=== PATIENT | female | born 1975 | race African-American/Black ===

== ENCOUNTER 2016-09-04 14:27 | Inpatient (IN) ==
[2016-09-04 15:32] LABS: Basophils # 0.1 10*3/uL (0.0-0.2); Basophils % 0.8 % (0.0-0.8); Eosinophils # 0.2 10*3/uL (0.0-0.87); Eosinophils % 2.7 % (0.00-10.9); Hematocrit 39.9 VOL% (35.7-47.0); Hemoglobin 13.2 GM/DL (12.0-16.0); Immature Granulocytes % 0.1 %; Immature Granulocytes Absolute 0.01 #; Lymphocytes # 3.5 10*3/uL (1.4-4.0); Lymphocytes % 46.8 % (21.3-54.2); Mean Corpuscular HGB Conc 33.1 GM/DL (32-36); Mean Corpuscular Hemoglobin 31 PG (27-34); Mean Platelet Volume 10.6 FL (9.6-12.0); Monocytes # 0.8 10*3/uL (0.11-0.8); Neutrophils # 2.9 10*3/uL (1.4-7.4); Neutrophils % 38.6 % (38.7-73.9); Platelet Count 233 T/CUMM (130-400); Red Blood Count 4.29 MC/CUMM (3.8-5.5); Red Cell Distribution Width 12.8 % (9.3-17.3); White Blood Count 7.5 T/CUMM (4-12)
--- NOTE | 2016-09-04 15:33 | XRay Report ---
XR foot 3V LT Indication: Fractured toe in April, now fifth toe painful and "black" Left foot 3 views: Soft tissue swelling of the fifth toe is present. Permeative bone resorptive change involves the midportion of the middle phalanx as well as the tip of the distal phalanx. Proximal phalanx is intact. There is cortical thickening of the proximal fifth metatarsal. Impression: 1. 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 Resorption of the tuft of the distal phalanx. Underlying infection cannot be excluded, especially given the soft tissue swelling present. 2. Cortical thickening of the fifth metatarsal with a nodular contour, mimicking candle wax. Query history of melorheostosis versus old injury, now healed. PROCEDURE INTERPRETED AT [facility] DEPARTMENT OF RADIOLOGY Final Report Signed by: Levi Shepard M.D.
[2016-09-04] MEDS ORDERED: SODIUM CHLORIDE 0.9% 1,000 ML IV STA (15:45)
[2016-09-04] MEDS ORDERED: CLINDAMYCIN INJ 600 MG in PREMIX 1 EACH IV STA (15:45)
[2016-09-04 15:46] LABS: Alanine Aminotransferase 27 U/L (13-56); Alkaline Phosphatase 103 U/L (45-117); Aspartate Amino Transferase 13 U/L (0-37); Bilirubin,Total < 0.39 MG/DL (0.2-1.0); Blood Urea Nitrogen 19 MG/DL (7-18); Calcium 8.9 MG/DL (8.5-10.1); Glucose 204 MG/DL (74-106); Osmolality,Calculated 280.8 MOS/KG (273-304); Potassium 3.6 MMOL/L (3.5-5.1); Sodium 137 MMOL/L (136-145); Total Protein 7.7 G/DL (6.4-8.3)
--- NOTE | 2016-09-04 15:46 | Emergency Department Note ---
Aga Conner Gwan, am scribing for, and in the presence of, Rene Cartagena MD 15:02. Mitzi Conner Phillip K, MD, personally performed the services described in this documentation, ascribed by Geri Yung in my presence, and it is both accurate and complete [id number] . Arrival - Arrival Chief Complaint: Extremity Problem Stated Complaint: broke toe ED Nursing Triage Note: Pt c/o injury to her left 5th toe occurred back May 06 but the last 2 wks she has been having increased pain and the toe is back in color. Mode of Arrival: Ambulatory Limitations: No Limitations Source: Patient, Old Records Reviewed, RN Notes Reviewed Time Seen by Provider: 09/04/16 14:44 - History of Present Illness HPI Narrative: Pt is a 41 y/o female, with a hx of NIDDM and HTN, who presents to the ED for further evaluation of necrosis of 5th digit to left lower extremity with an onset 05/06/2016. Patient stated that her God Daughter stepped on her toe causing injury. Patient then noted that within the past 3 weeks, her pain has increased as well as her edema and limited mobility. She confirmed that her toe turned black 2 months after onset, that she has been compliant with her HTN medication and that her PCP is a physician at [facility]. She denies receiving any blood work or x-rays for her toe. No other problems/ complaints reported in ED. Onset (ago): month(s) Consistency: constant Severity: moderate Date of Last Menstrual Period: September 02 Allergies/Adverse Reactions: Allergies Allergy/AdvReac Type Severity Reaction Status Date / Time No Known Allergies Allergy Verified 07/25/15 13:58 Home Medications: Home Medications Medication Instructions Recorded Confirmed Type Aspirin Tab 325 mg PO DAILY #30 tablet 07/29/15 09/04/16 Rx Atorvastatin [Lipitor] 20 mg PO BEDTIME #30 tablet 07/29/15 09/04/16 Rx Furosemide Tab [Lasix Tab] 20 mg PO DAILY #30 tablet 07/29/15 09/04/16 Rx Lisinopril [Prinivil] 40 mg PO DAILY #30 tablet 07/29/15 09/04/16 Rx amLODIPine [Norvasc] 10 mg PO DAILY #30 tablet 07/29/15 09/04/16 Rx glyBURIDE [Diabeta] 5 mg PO BID W/MEALS #60 tablet 07/29/15 09/04/16 Rx hydrALAZINE TAB [Apresoline Tab] 50 mg PO TID #90 tablet 07/29/15 09/04/16 Rx Metoprolol Tartrate Tab [Lopressor 50 mg PO BID 09/04/16 09/04/16 History Tab] Review of System - Review of System 12 point system: reviewed and no additional remarkable complaints except as stated - Review of System Constitutional: Absent: chills, fever Eyes: Absent: pain Head/Ears/Nose/Throat: Absent: epistaxis Respiratory: Absent: cough Cardiovascular: Absent: chest pain Gastrointestinal: Absent: abdominal pain, nausea, diarrhea Musculoskeletal: Present: as per HPI, other (left toe black and swollen). Absent: arm pain, back pain, lower back pain, leg pain Medical,Surgical,& Family Hx - Medical History Cardio: History of: Hypertension Neurology: History of: Cerebrovascular Accident Endocrine: History of: Diabetes Mellitus (NIDDM), Dyslipidemia Gastrointestinal: History of: Pancreatitis - Surgical History Abdominal Surgeries: Surgical HX of: Cholecystectomy - Family History Family History: Reports;: Family Diabetes - Social History Smoking Status: Current every day smoker Exam Vital Signs: Vital Signs Temperature 98.0 F 09/04/16 15:17 Pulse Rate 121 H 09/04/16 15:17 Respiratory Rate 18 09/04/16 15:17 Blood Pressure 228/123 09/04/16 15:17 O2 Sat by Pulse Oximetry 99 09/04/16 14:28 - General General appearance: alert, in no apparent distress - Extremities Exam Extremities exam: Present: other (Gangrene noted to 5th digit of the left lower extremity; toe is black, hard and very tender) - Neurological Exam Neurological exam: Present: alert, oriented X3, CN II-XII intact. Absent: motor sensory deficit - Psychiatric Psychiatric exam: Present: normal affect, normal mood - Skin Skin exam: Present: other (Gangrene noted to 5th digit of left lower extremitiy ; toe is hard, black and very tender) Course Course Narrative: Patient discussed with Dr. Duque. Results - Labs CBC & BMP: 09/04/16 15:10 09/04/16 15:10 Lab Results: I have reviewed the patients labs - Diagnostic Findings Procedure: X-ray: report reviewed by me (Nonunion of the middle phalangeal fracture left fifth toe) Disposition Clinical Impression: Gangrene left fifth toe Case discussed with: patient Disposition: Still a Patient Condition: Guarded Additional Instructions: Admit to Dr. Duque.
[2016-09-04] MEDS ORDERED: CLINDAMYCIN INJ 50 ML IV ONE (16:11)
[2016-09-04] MEDS ORDERED: DEXTROSE 50% 25 GM/50 ML VIAL IV PRN (16:34)
[2016-09-04] MEDS ORDERED: GLUCAGON 1 MG VIAL IM PRN (16:34)
[2016-09-04] MEDS ORDERED: ACETAMINOPHEN 325 MG TABLET PO PRN (16:34)
[2016-09-04] MEDS ORDERED: HYDROmorphone 2 MG/1 ML VIAL ONE (16:39)
[2016-09-04] MEDS ORDERED: BACITRACIN OINT 0.9 GM PACK TOP ONE (16:40)
--- NOTE | 2016-09-04 16:48 | General Surg History&Physical ---
Assessment and Plan - Time spent with patient Time spent with patient: Greater than 30 minutes (1) Ischemic ulcer of toe of left foot Status: Acute Assessment and plan: Impression: 1. Ischemic left fifth toe 2. Diabetes [id number] 3. Hypertension 4. Questionable history of CVA Plan. 1. Admit for IV antibiotics 2. Vascular studies 3. Diabetes control 4. Look at surgery for amputation of toe possibly Sunday Current Visit: Yes Qualifiers: Non-pressure ulcer stage: limited to breakdown of skin Qualified Code(s): L97.521 - Non-pressure chronic ulcer of other part of left foot limited to breakdown of skin History of Present Illness Chief complaint: Ischemic left fifth toe History of present illness: Ms. Desai is a 41 year old female -Prydeinig diabetic female who sustained a traumatic injury to the left fifth toe around sometime in April. Do not know account care she was providing to this area but he got basically worse over the last several days with now some increased pain and darkening of the tissue around it. No significant erythematous changes on to the foot but there is some edema on the dorsum of the foot at this time. Difficult to palpate pulses in the left foot because of the edema but I think we feel like 2 + pulse in that area. She is on just oral medication but has history of some hypertension on multiple drugs at this time. At this point her x-rays suggest a dislocation with some bone loss which is either due to the fracture are possible infection in it. It appears that she may lose this toe but will then admit her for some antibiotics and get some vascular studies and those are okay plan to take her surgery to take that toe. Will start some wound care at this time. Home Medications Medication Instructions Recorded Confirmed Type Aspirin Tab 325 mg PO DAILY #30 tablet 07/29/15 09/04/16 Rx Atorvastatin [Lipitor] 20 mg PO BEDTIME #30 tablet 07/29/15 09/04/16 Rx Furosemide Tab [Lasix Tab] 20 mg PO DAILY #30 tablet 07/29/15 09/04/16 Rx Lisinopril [Prinivil] 40 mg PO DAILY #30 tablet 07/29/15 09/04/16 Rx amLODIPine [Norvasc] 10 mg PO DAILY #30 tablet 07/29/15 09/04/16 Rx glyBURIDE [Diabeta] 5 mg PO BID W/MEALS #60 tablet 07/29/15 09/04/16 Rx hydrALAZINE TAB [Apresoline Tab] 50 mg PO TID #90 tablet 07/29/15 09/04/16 Rx Metoprolol Tartrate Tab [Lopressor 50 mg PO BID 09/04/16 09/04/16 History Tab] Allergies Allergy/AdvReac Type Severity Reaction Status Date / Time No Known Allergies Allergy Verified 07/25/15 13:58 Medical,Surgical,& Family Hx - Medical History Cardio: History of: Hypertension Neurology: History of: Cerebrovascular Accident Endocrine: History of: Diabetes Mellitus (NIDDM), Dyslipidemia Gastrointestinal: History of: Pancreatitis - Surgical History Abdominal Surgeries: Surgical HX of: Cholecystectomy - Family History Family History: Reports;: Family Diabetes - Social History Smoking Status: Current every day smoker Functional capacity: independent ambulation Exam - Constitutional Vitals: Period Temp Pulse Resp BP Sys/Chavarria Pulse Ox Last 24 Hr 98.0 F-98.0 F 121-121 18-18 228-228/123-123 99 General appearance: mild distress - Head Head exam: Present: normal inspection - ENT ENT exam: Present: normal exam - Neck Neck exam: Present: normal inspection - Respiratory Respiratory exam: Present: clear to auscultation bilaterally, rales - Cardiovascular Cardiovascular exam: Present: RRR - GI/Abdominal GI/Abdominal exam: Present: hypoactive bowel sounds, soft - Extremities Exam Extremities exam: Present: other (There is some swelling the dorsum of the left foot without erythema. There is ischemic black-looking fifth toe ulceration on the dorsum part of it.) - Back Exam Back exam: Present: normal inspection - Neurological Exam Neurological exam: Present: alert, oriented X3, CN II-XII intact - Skin Skin exam: Present: normal color, warm, dry 12 point system: reviewed and no additional remarkable complaints except as stated Results - Labs CBC & BMP: 09/04/16 15:10 09/04/16 15:10 Lab Results: I have reviewed the past 24 hour labs - Diagnostic Findings Procedure: X-ray: other (Left toe fractured dislocation with possible osteo-)
[2016-09-04] MEDS: HYDROmorphone 2 MG/1 ML VIAL IV PRN (16:50)
[2016-09-04] MEDS: glyBURIDE 5 MG TABLET PO SCH (17:00)
--- NOTE | 2016-09-04 17:24 | XRay Report ---
Exam: XR chest 1V portable Indication: Ischemic toe preop Comparison study: 07/31/2015 Findings: Cardiac silhouette is mildly enlarged, similar to prior. The heart, mediastinum and bony structures are stable from prior. There is no focal consolidation, pneumothorax or pleural effusion identified. Impression: No acute cardiopulmonary process. Similar mild cardiomegaly PROCEDURE INTERPRETED AT [facility] DEPARTMENT OF RADIOLOGY Final Report Signed by: Hipolito Garcia
[2016-09-04 18:00] LABS: Eosinophils 7 % (0-10); Lymphocytes 44 % (20-55); Platelet Estimate Normal; Segmented Neutrophils 39 % (50-85); Total Cells Counted 100
--- NOTE | 2016-09-04 18:45 | Hospitalist Consult Note ---
Assessment and Plan - Time spent with patient Time spent with patient: Greater than 30 minutes (1) Hypertension Status: Chronic Assessment and plan: 41-year-old -Stateless female with history of diabetes and hypertension, and CVA admitted by Dr. Potts with an ischemic left fifth toe. Patient is undergoing antibiotics, pain control and vascular studies for probable amputation on Sunday. Hospital medicine has been consulted to help with medical management. Patient has elevated blood pressures but has not had her medicines yet today. Will restart all of her medicines, put her on sliding scale insulin, and continue to manage and monitor these numbers. Patient is on antibiotics and pain medicine already. We will continue to follow. Patient has been discussed with Dr. Sommers. Further recommendations to follow. Current Visit: No Qualifiers: Hypertension type: essential hypertension (2) Diabetes Status: Acute Current Visit: No Qualifiers: Diabetes mellitus type: type 2 (3) Acute CVA (cerebrovascular accident) Status: Acute Current Visit: No (4) Dyslipidemia Status: Chronic Current Visit: No (5) History of CVA (cerebrovascular accident) Status: Acute Current Visit: No (6) Ischemic ulcer of toe of left foot Status: Acute Current Visit: Yes Qualifiers: Non-pressure ulcer stage: limited to breakdown of skin Qualified Code(s): L97.521 - Non-pressure chronic ulcer of other part of left foot limited to breakdown of skin History of Present Illness - Data of Consult Patient: known to practice within the last 3 years Consult date: 09/04/16 Requesting Physician: Efrain Duque - Consult Narrative Reason for consult: medical management History of present illness: Ms. Desai is a 41 year old female with history of diabetes, hypertension, CVA causing blurry vision admitted by Dr. Duque today with an ischemic left fifth toe. Patient states she injured it a few months ago and ever since then it has continue to get worse. She has had intense pain and swelling of her left foot. Patient denies headache, dysphasia, chest pain, shortness of breath, abdominal pain, constipation, or right lower extremity edema. She does complain of blurry vision due to her stroke she had about a year ago. Dr. Duque starting antibiotics and is doing vascular studies on this patient. He is prepping her for probable amputation on Sunday. Dr. Duque has consulted hospital medicine for medical management of this patient. CC: Efrain Duque MD - Home Medications and Allergies Home Medications: Home Medications Medication Instructions Recorded Confirmed Type Aspirin Tab 325 mg PO DAILY #30 tablet 07/29/15 09/04/16 Rx Atorvastatin [Lipitor] 20 mg PO BEDTIME #30 tablet 07/29/15 09/04/16 Rx Furosemide Tab [Lasix Tab] 20 mg PO DAILY #30 tablet 07/29/15 09/04/16 Rx Lisinopril [Prinivil] 40 mg PO DAILY #30 tablet 07/29/15 09/04/16 Rx amLODIPine [Norvasc] 10 mg PO DAILY #30 tablet 07/29/15 09/04/16 Rx glyBURIDE [Diabeta] 5 mg PO BID W/MEALS #60 tablet 07/29/15 09/04/16 Rx hydrALAZINE TAB [Apresoline Tab] 50 mg PO TID #90 tablet 07/29/15 09/04/16 Rx Metoprolol Tartrate Tab [Lopressor 50 mg PO BID 09/04/16 09/04/16 History Tab] Allergies/Adverse Reactions: Allergies Allergy/AdvReac Type Severity Reaction Status Date / Time No Known Allergies Allergy Verified 07/25/15 13:58 Medical,Surgical,& Family Hx - Medical History Cardio: History of: Hypertension Neurology: History of: Cerebrovascular Accident Endocrine: History of: Diabetes Mellitus (NIDDM), Dyslipidemia Gastrointestinal: History of: Pancreatitis - Surgical History Abdominal Surgeries: Surgical HX of: Cholecystectomy - Family History Family History: Reports;: Family Diabetes, Family Heart Disease, Family Hypertension - Social History Smoking Status: Current every day smoker Functional capacity: independent ambulation Review of systems: Complete 10 system review of systems was obtained and pertinent positives and negatives per HPI Exam - Constitutional Exam: Constitutional System: No distress. No tremulousness. Head: Normocephalic, atraumatic. Ears, Nose and Throat System: No evidence of Otitis or Mastoiditis. No epistaxis or discharge Eyes System: Pupils equal, round, and reactive. Extraocular muscles intact. Neck: Supple, without adenopathy, No jugular venous distention. No thyromegaly, neck mass, or prior surgery apparent. Respiratory System: Chest clear to auscultation. Cardiovascular System: Heart with regular rate and rhythm. No murmur. GI System: Abdomen soft, nontender. Normo active bowel sounds present. Musculoskeletal System: limbs with mild pedal edema on the left, ischemic left fifth toe. No distal pulses palpated. Neurological System: No discernable sensory deficit. No aphasia Psychiatric System: Conversation is rational Results - Labs CBC & BMP: 09/04/16 15:10 09/04/16 15:10 Lab Results: I have reviewed the past 24 hour labs - Diagnostic Findings Procedure: X-ray: report reviewed by me (Left foot x-ray showing nonunion of middle phalangeal fracture left little toe with resorption of bony fragments. Underlying infection cannot be excluded. Cortical thickening of the fifth metatarsal with a nodular contour mimicking candle wax. Query history of malaria stasis versus old injury)
[2016-09-04] MEDS ORDERED: NIFEdipine 10 MG CAPSULE PO PRN (18:52)
[2016-09-04] MEDS: SODIUM CHLORIDE 0.45% 1,000 ML IV SCH ×2 (19:40→20:05)
[2016-09-04] MEDS: KETOROLAC 15 MG/1 ML VIAL IV SCH (21:14)
[2016-09-04] MEDS: METOPROLOL TARTRATE 50 MG TABLET PO SCH (21:18)
[2016-09-04] MEDS: metroNIDAZOLE INJ 500 MG in PREMIX 1 EACH IV SCH (21:18)
[2016-09-04] MEDS: ATORVASTATIN 20 MG TABLET PO SCH (21:19)
[2016-09-04] MEDS: DOCUSATE SODIUM 100 MG CAPSULE PO SCH (21:19)
[2016-09-04] MEDS: INSULIN REGULAR 100 UNIT/ML SUBCUT SCH (21:32)
[2016-09-05] MEDS: CLINDAMYCIN INJ 600 MG in PREMIX 1 EACH IV SCH ×5 (00:05→22:41)
[2016-09-05] MEDS: SODIUM CHLORIDE 0.45% 1,000 ML IV SCH ×5 (01:07→21:17)
[2016-09-05] MEDS: KETOROLAC 15 MG/1 ML VIAL IV SCH ×4 (03:30→21:11)
[2016-09-05 06:23] LABS: Basophils # 0.1 10*3/uL (0.0-0.2); Basophils % 0.8 % (0.0-0.8); Eosinophils # 0.2 10*3/uL (0.0-0.87); Eosinophils % 3.7 % (0.00-10.9); Hematocrit 38.1 VOL% (35.7-47.0); Hemoglobin 12.6 GM/DL (12.0-16.0); Immature Granulocytes % 0.2 %; Immature Granulocytes Absolute 0.01 #; Lymphocytes # 3.2 10*3/uL (1.4-4.0); Lymphocytes % 49.9 % (21.3-54.2); Mean Corpuscular HGB Conc 33.1 GM/DL (32-36); Mean Corpuscular Hemoglobin 30 PG (27-34); Mean Platelet Volume 10.7 FL (9.6-12.0); Monocytes # 0.7 10*3/uL (0.11-0.8); Monocytes % 10.7 % (1.7-12.7); Neutrophils # 2.3 10*3/uL (1.4-7.4); Neutrophils % 34.7 % (38.7-73.9); Platelet Count 235 T/CUMM (130-400); Red Blood Count 4.14 MC/CUMM (3.8-5.5); Red Cell Distribution Width 12.8 % (9.3-17.3); White Blood Count 6.5 T/CUMM (4-12)
[2016-09-05] MEDS: metroNIDAZOLE INJ 500 MG in PREMIX 1 EACH IV SCH ×3 (06:25→21:16)
[2016-09-05] MEDS: HYDROmorphone 2 MG/1 ML VIAL IV PRN (06:45)
[2016-09-05 06:52] LABS: Eosinophils 4 % (0-10); Hypochromasia Slight; Lymphocytes 47 % (20-55); Platelet Estimate Adequate; Polychromasia Slight; Segmented Neutrophils 36 % (50-85); Total Cells Counted 100
[2016-09-05 06:55] LABS: Albumin 2.6 G/DL (3.4-5.0); Bilirubin,Total 0.5 MG/DL (0.2-1.0); Calcium 7.9 MG/DL (8.5-10.1); Osmolality,Calculated 278.5 MOS/KG (273-304); Potassium 3.6 MMOL/L (3.5-5.1); Total Protein 6.9 G/DL (6.4-8.3)
[2016-09-05] MEDS: INSULIN REGULAR 100 UNIT/ML SUBCUT SCH ×4 (07:56→21:16)
[2016-09-05] MEDS ORDERED: PANTOPRAZOLE 40 MG TABLET PO SCH (09:00)
--- NOTE | 2016-09-05 09:30 | EKG Report ---
Stationary ECG Study [facility] Test Date: 09/05/2016 7:05:44 AM Pat Name: AMADO GUZMAN Department: Room: 331 Gender: F [employer]: CUONG : 1975 Requested by: Efrain Duque Order Number: [id number] Reading MD: NAYELI GARCIA Intervals [place] Rate: 77 P: 63 AL: 140 QRS: 7 QRSD: 96 T: 118 QT: 432 QTc: 464 Interpretive Statements SINUS RHYTHM WITH SINUS ARRHYTHMIA LEFT VENTRICULAR HYPERTROPHY AND ST-T CHANGE Electronically Signed On 09-05-16 16:16:17 CDT by NAYELI GARCIA [email or web address]
[2016-09-05] MEDS: ASPIRIN 325 MG TABLET PO SCH (10:21)
[2016-09-05] MEDS: DOCUSATE SODIUM 100 MG CAPSULE PO SCH ×2 (10:21→21:11)
[2016-09-05] MEDS: NICOTINE 21 MG/24 HR PATCH TRANSDERM SCH (10:22)
[2016-09-05] MEDS: METOPROLOL TARTRATE 50 MG TABLET PO SCH ×2 (10:22→21:11)
[2016-09-05] MEDS: FUROSEMIDE 20 MG TABLET PO SCH (10:22)
[2016-09-05] MEDS: amLODIPine 10 MG TABLET PO SCH (10:23)
[2016-09-05] MEDS: LISINOPRIL 20 MG TABLET PO SCH (10:23)
--- NOTE | 2016-09-05 10:46 | General Surgery Progress Note ---
Assessment and Plan - Time spent with patient Time spent with patient: Less than 30 minutes (1) Ischemic ulcer of toe of left foot Status: Acute Assessment and plan: 09/05/16 Ischemic ulceration of left 5th toe. We are awaiting noninvasive vascular studies, but she needs OR debridement with amputation of the 5th toe. This has been scheduled for tomorrow, and was discussed with the patient and her by Dr Duque last evening, and again by me this morning. They seem to have no new questions. She is anxious to proceed with surgery. I explained that her vascular status is a critical factor in determining the healing potential of this wound, and we will again discuss the findings prior to surgery. Appreciate [facility] medicine for following her other problems. Current Visit: Yes Qualifiers: Non-pressure ulcer stage: limited to breakdown of skin Qualified Code(s): L97.521 - Non-pressure chronic ulcer of other part of left foot limited to breakdown of skin Subjective Patient reports: Present: no new complaints. Absent: shortness of breath Exam - Constitutional Vitals: Period Temp Pulse Resp BP Sys/Chavarria Pulse Ox Last 24 Hr 97.4 F-98.9 F 91-99 18-20 145-186/76-102 96-99 General appearance: no acute distress - Respiratory Respiratory exam: Present: clear to auscultation bilaterally - Cardiovascular Cardiovascular exam: Present: RRR - GI/Abdominal GI/Abdominal exam: Present: hypoactive bowel sounds. Absent: tenderness - Extremities Exam Extremities exam: Present: other (LLE with markedly discolored lateral foot and open, foul-smelling wound of the left 5th toe. The foot is not erythematous but has 1+ pitting edema. It is tender to touch. No active oozing. ). Absent: edema - Neurological Exam Neurological exam: Present: alert, oriented X3 Results - Labs CBC & BMP: 09/05/16 06:01 09/05/16 06:01 Lab Results: I have reviewed the past 24 hour labs (Labs, xray noted.) Quality Measures - VTE Contraindication to Pharmacological VTE Prophylaxis: High Risk of Bleeding
[2016-09-05] MEDS: ENOXAPARIN 40 MG/0.4 ML SYRINGE SUBCUT SCH (13:13)
[2016-09-05] MEDS: glyBURIDE 5 MG TABLET PO SCH ×2 (13:39→17:00)
[2016-09-05] MEDS ORDERED: LORazepam 1 MG TABLET PO ONE (16:40)
[2016-09-05] MEDS: ATORVASTATIN 20 MG TABLET PO SCH (21:11)
[2016-09-06] MEDS: HYDROmorphone 2 MG/1 ML VIAL IV PRN ×3 (00:05→16:21)
[2016-09-06] MEDS: CLINDAMYCIN INJ 600 MG in PREMIX 1 EACH IV SCH ×4 (03:42→22:56)
[2016-09-06] MEDS: KETOROLAC 15 MG/1 ML VIAL IV SCH ×4 (03:42→20:46)
[2016-09-06] MEDS: metroNIDAZOLE INJ 500 MG in PREMIX 1 EACH IV SCH ×3 (05:17→20:50)
[2016-09-06 06:46] LABS: Albumin 2.7 G/DL (3.4-5.0); Bilirubin,Total 0.5 MG/DL (0.2-1.0); Calcium 8.1 MG/DL (8.5-10.1); Osmolality,Calculated 274.8 MOS/KG (273-304); Potassium 3.5 MMOL/L (3.5-5.1); Total Protein 6.9 G/DL (6.4-8.3)
[2016-09-06] MEDS: PANTOPRAZOLE 40 MG TABLET PO SCH ×2 (06:50→08:54)
[2016-09-06 07:22] LABS: Basophils % 0.4 % (0.0-0.8); Eosinophils # 0.3 10*3/uL (0.0-0.87); Eosinophils % 2.8 % (0.00-10.9); Hematocrit 36.8 VOL% (35.7-47.0); Immature Granulocytes % 0.3 %; Immature Granulocytes Absolute 0.03 #; Lymphocytes # 3.4 10*3/uL (1.4-4.0); Mean Corpuscular HGB Conc 32.6 GM/DL (32-36); Mean Corpuscular Hemoglobin 30 PG (27-34); Mean Corpuscular Volume 92.2 FL (87-102); Mean Platelet Volume 10.8 FL (9.6-12.0); Monocytes # 0.9 10*3/uL (0.11-0.8); Monocytes % 9.2 % (1.7-12.7); Neutrophils % 52.3 % (38.7-73.9); Platelet Count 208 T/CUMM (130-400); Red Blood Count 3.99 MC/CUMM (3.8-5.5); Red Cell Distribution Width 12.9 % (9.3-17.3); White Blood Count 9.6 T/CUMM (4-12)
[2016-09-06] MEDS: SODIUM CHLORIDE 0.45% 1,000 ML IV SCH ×4 (07:53→16:21)
[2016-09-06] MEDS ORDERED: FAMOTIDINE 20 MG TABLET PO ONE (08:30)
[2016-09-06] MEDS ORDERED: LORazepam 1 MG TABLET PO ONE (08:30)
[2016-09-06] MEDS: DOCUSATE SODIUM 100 MG CAPSULE PO SCH ×2 (08:53→20:47)
[2016-09-06] MEDS: glyBURIDE 5 MG TABLET PO SCH ×2 (08:53→16:21)
[2016-09-06] MEDS: ASPIRIN 325 MG TABLET PO SCH (08:53)
[2016-09-06] MEDS: FUROSEMIDE 20 MG TABLET PO SCH (08:54)
[2016-09-06] MEDS: amLODIPine 10 MG TABLET PO SCH (08:54)
[2016-09-06] MEDS: INSULIN REGULAR 100 UNIT/ML SUBCUT SCH ×4 (08:55→21:44)
[2016-09-06] MEDS: LISINOPRIL 20 MG TABLET PO SCH (08:55)
[2016-09-06] MEDS: METOPROLOL TARTRATE 50 MG TABLET PO SCH ×2 (08:55→20:47)
[2016-09-06] MEDS: NICOTINE 21 MG/24 HR PATCH TRANSDERM SCH (08:55)
--- NOTE | 2016-09-06 09:28 | Event Note ---
09/06/2016 Patient is for surgery today to amputate that fifth toe that is ischemic at this point. I have seen her vascular studies and it looks got marked decrease in flow into the lower extremities. She will need a CTA which will try to get either later today or tomorrow. Hopefully should have something that would be reconstructable note to improve circulation lower extremities. She admits to being a smoker plus her diabetes which could be making things progressively worse in the lower extremities.
[2016-09-06] MEDS ORDERED: BUPIVACAINE 0.25% 50 ML VIAL ONE (10:02)
[2016-09-06] MEDS ORDERED: LIDOCAINE 2% 5 ML VIAL ONE (10:30)
[2016-09-06] MEDS ORDERED: PHENYLEPHRINE 1 MG/10 ML SYRINGE IV ONE (10:30)
[2016-09-06] MEDS ORDERED: ONDANSETRON 4 MG/2 ML VIAL ONE (10:30)
[2016-09-06] MEDS: LACTATED RINGERS 1,000 ML IV SCH ×2 (10:30→11:55)
[2016-09-06] MEDS ORDERED: PROPOFOL 200 MG/20 ML VIAL IV ONE (10:30)
[2016-09-06] MEDS ORDERED: KETOROLAC 30 MG/1 ML VIAL ONE (10:30)
--- NOTE | 2016-09-06 11:13 | Operative Note ---
Date of procedure: 09/06/16 Pre-op diagnosis: Diabetic ulceration with ischemic changes left fifth toe Post-op diagnosis: same Procedure: Operative note: Preoperative diagnosis: Diabetic ulceration left fifth toe with ischemic changes Postoperative diagnosis: Same Procedure: Ray amputation of left fifth toe Surgeon Dr. Duque Plan Nurse Leta Rider, [employer] ACNP Anesthesia general with local Brief history: 41-year-old -Chinese female who is diabetic and sustained a traumatic injury around April to her left fifth toe. Do not know exactly how she was taking care of it but now comes in with ischemic changes of the toe and ulceration dorsum of the toe. Nothing we can do with these changes here except planning amputation which we discussed with the patient and she understands. She has been on some IV antibiotics and was done a vascular studies it looked like she may have some vascular compromise lower extremity. Go ahead and get the toe off this time due to the infection and then look at doing a CTA at a later date. Procedure: With patient supine position prepped and draped in sterile fashion timeout and antibiotics completed approaches area of the left foot. There was ulcer on the dorsum of the toe some ischemic skin around it. As I debrided this loose skin off around the toe looked like there was a fairly good base of some healthy skin. I like to try to preserve little skin by going just above the fold in the toe and the Ray fashion. Then get a digital block with local anesthetic of the toe and then take a knife when around this base of this toe and carried on to the metatarsal in a racquet type of incision. Went down to the skin subtenons tissue dividing the tendons with this to like to get down to the joint which point I was able to disarticulate the toe itself. Once the toe was free did some tissue cultures of the ulcer and sent toe for pathology. I then trim the skin edges little bit at this time which had bleeding in all areas. At that point I then took and debrided the cartilage off the metatarsal head and we washed irrigated with saline solution. Even though is a little bit with elected not to do any cautery on it at this time to try to preserve as much flow was this as I could possibly get. At that point we took a [place] drain and laid in place and then closed the subtenons tissue with 4-0 Vicryl closed the skin with 4-0 Monocryl. A dressing was then applied and the patient was taken recovery room stable satisfactory condition. Sponge counts correct 2 Drains 1/4 inch Juliette Complications none Condition stable satisfactory Anesthesia: GETA, local (0.25% Marcaine plain mixed [id number]-[id number] 1% Xylocaine plain in digital block) Surgeon / Physician: Efrain Duque Plan Nurse: Leta Rider Estimated blood loss: minimal Specimens: other (Total pathology and tissue for culture) Condition: stable Disposition: floor Results - Labs CBC & BMP: 09/06/16 07:08 09/06/16 05:14 Discharge Plan - Discharge Medications No Action Aspirin Tab 325 mg PO DAILY #30 tablet Atorvastatin [Lipitor] 20 mg PO BEDTIME #30 tablet Furosemide Tab [Lasix Tab] 20 mg PO DAILY #30 tablet hydrALAZINE TAB [Apresoline Tab] 50 mg PO TID #90 tablet glyBURIDE [Diabeta] 5 mg PO BID W/MEALS #60 tablet amLODIPine [Norvasc] 10 mg PO DAILY #30 tablet Lisinopril [Prinivil] 40 mg PO DAILY #30 tablet Metoprolol Tartrate Tab [Lopressor Tab] 50 mg PO BID - Follow Up or Referral - Forms/Instructions
--- NOTE | 2016-09-06 11:33 | Anesthesia Post-Op ---
Anesthesia Post OP - Post Ansesthetic Evaluation Patient seen in post op: Yes Resp: within normal limits CV: within normal limits Mental: within normal limits Temp: within normal limits [id number]: within normal limits Nausea and Vomiting: within normal limits Pain: within normal limits
[2016-09-06] MEDS ORDERED: MIDAZOLAM 2 MG/2 ML VIAL ONE (11:35)
[2016-09-06] MEDS ORDERED: fentaNYL 100 MCG/2 ML VIAL ONE (11:35)
[2016-09-06] MEDS ORDERED: SEVOFLURANE 1 UNIT/15 MINUTE INH ONE (11:35)
[2016-09-06] MEDS: ceFAZolin 2,000 MG in PREMIX 1 EACH IV SCH (16:51)
[2016-09-06] MEDS: ONDANSETRON 4 MG/2 ML VIAL IV PRN (19:17)
[2016-09-06] MEDS: ATORVASTATIN 20 MG TABLET PO SCH (20:47)
[2016-09-07] MEDS: ceFAZolin 2,000 MG in PREMIX 1 EACH IV SCH (00:20)
[2016-09-07] MEDS: HYDROmorphone 2 MG/1 ML VIAL IV PRN ×5 (00:55→20:38)
[2016-09-07] MEDS: CLINDAMYCIN INJ 600 MG in PREMIX 1 EACH IV SCH ×4 (03:08→22:55)
[2016-09-07] MEDS: KETOROLAC 15 MG/1 ML VIAL IV SCH ×4 (03:13→20:37)
[2016-09-07] MEDS: metroNIDAZOLE INJ 500 MG in PREMIX 1 EACH IV SCH ×3 (04:13→20:37)
[2016-09-07] MEDS: SODIUM CHLORIDE 0.45% 1,000 ML IV SCH ×3 (04:16→18:38)
[2016-09-07 05:02] LABS: Basophils % 0.3 % (0.0-0.8); Eosinophils # 0.1 10*3/uL (0.0-0.87); Eosinophils % 2.3 % (0.00-10.9); Hematocrit 36.2 VOL% (35.7-47.0); Hemoglobin 12.3 GM/DL (12.0-16.0); Immature Granulocytes % 0.2 %; Immature Granulocytes Absolute 0.01 #; Lymphocytes # 2.2 10*3/uL (1.4-4.0); Mean Corpuscular Hemoglobin 30 PG (27-34); Mean Corpuscular Volume 89.6 FL (87-102); Mean Platelet Volume 12.1 FL (9.6-12.0); Monocytes # 0.4 10*3/uL (0.11-0.8); Monocytes % 7.1 % (1.7-12.7); Neutrophils # 2.9 10*3/uL (1.4-7.4); Neutrophils % 51.1 % (38.7-73.9); Red Blood Count 4.04 MC/CUMM (3.8-5.5); White Blood Count 5.7 T/CUMM (4-12)
[2016-09-07 05:06] LABS: Platelet Count 58 T/CUMM (130-400)
[2016-09-07 05:32] LABS: Calcium 8.1 MG/DL (8.5-10.1); Osmolality,Calculated 274.8 MOS/KG (273-304); Potassium 3.7 MMOL/L (3.5-5.1)
[2016-09-07 06:11] LABS: Platelet Estimate Adequate
[2016-09-07] MEDS: INSULIN REGULAR 100 UNIT/ML SUBCUT SCH ×4 (08:12→20:47)
--- NOTE | 2016-09-07 08:47 | Event Note ---
09/07/2016 Patient is postop from amputation of the left fifth toe. Generally doing well at this time and cultures are pending. Had a CTA done today which shows that she has significant proximal disease. I have consulted Dr. Gibson since she has some good runoff the possibility of trying to restore the circulation to some degree to the lower extremities.
[2016-09-07] MEDS: NICOTINE 21 MG/24 HR PATCH TRANSDERM SCH (09:27)
[2016-09-07] MEDS: FUROSEMIDE 20 MG TABLET PO SCH (09:28)
[2016-09-07] MEDS: amLODIPine 10 MG TABLET PO SCH (09:28)
[2016-09-07] MEDS: ASPIRIN 325 MG TABLET PO SCH (09:28)
[2016-09-07] MEDS: LISINOPRIL 20 MG TABLET PO SCH (09:28)
[2016-09-07] MEDS: glyBURIDE 5 MG TABLET PO SCH ×2 (09:28→17:41)
[2016-09-07] MEDS: PANTOPRAZOLE 40 MG TABLET PO SCH (09:28)
[2016-09-07] MEDS: DOCUSATE SODIUM 100 MG CAPSULE PO SCH ×2 (09:28→20:37)
[2016-09-07] MEDS: METOPROLOL TARTRATE 50 MG TABLET PO SCH ×2 (09:28→20:37)
[2016-09-07] MEDS: ONDANSETRON 4 MG/2 ML VIAL IV PRN (09:29)
--- NOTE | 2016-09-07 09:31 | Vascular Surgery Consult Note ---
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 Desai is a 41 year old female Tamiko Desai is a 35-year-old woman diabetes admitted with ischemic gangrenous left fifth toe. Dr. Duque is amputated the toe and there is no ongoing active infection however evaluation from a vascular standpoint syndicate significant decreased perfusion of the left foot. She has an NICHOLAS of 0.49 and on the right and NICHOLAS of approximately 0.6. She reports having significant claudication at approximately [address] angiogram has been done and indicates a right external iliac occlusion and bilateral superficial femoral occlusion. There is also stenosis of the left common iliac. Interestingly she has good popliteals developing above the knee and good 2-3 vessel runoff in both lower extremities. I have reviewed the CT angiogram with Dr. Shepard from the standpoint of possibly going about this in interventional fashion with the idea of improving perfusion at the iliac level bilaterally and then considering attempted revascularization of the left superficial femoral artery. Certainly there is question of whether or not we will be able to revascularize the right external iliac but it is not acutely symptomatic at this time. Improved perfusion with the left common iliac and then is unable to recanalize the left superficial femoral and femoral-popliteal bypass can be considered. I have noticed however that the patient's platelet count was 208,000 approximately 2 days ago and is now dropped to 58,000. She is on Toradol as well as Lovenox kanamycin but not certain what might be causing this acute thrombocytopenia but I will ask for a hematology evaluation prior to attempting intervention. Home Medications Medication Instructions Recorded Confirmed Type Aspirin Tab 325 mg PO DAILY #30 tablet 07/29/15 09/04/16 Rx Atorvastatin [Lipitor] 20 mg PO BEDTIME #30 tablet 07/29/15 09/04/16 Rx Furosemide Tab [Lasix Tab] 20 mg PO DAILY #30 tablet 07/29/15 09/04/16 Rx Lisinopril [Prinivil] 40 mg PO DAILY #30 tablet 07/29/15 09/04/16 Rx amLODIPine [Norvasc] 10 mg PO DAILY #30 tablet 07/29/15 09/04/16 Rx glyBURIDE [Diabeta] 5 mg PO BID W/MEALS #60 tablet 07/29/15 09/04/16 Rx hydrALAZINE TAB [Apresoline Tab] 50 mg PO TID #90 tablet 07/29/15 09/04/16 Rx Metoprolol Tartrate Tab [Lopressor 50 mg PO BID 09/04/16 09/04/16 History Tab] Allergies Allergy/AdvReac Type Severity Reaction Status Date / Time No Known Allergies Allergy Verified 07/25/15 13:58 Medical,Surgical,& Family Hx - Medical History Cardio: History of: Hypertension Neurology: History of: Cerebrovascular Accident Endocrine: History of: Diabetes Mellitus (NIDDM), Dyslipidemia Gastrointestinal: History of: Pancreatitis - Surgical History Abdominal Surgeries: Surgical HX of: Cholecystectomy - Family History Family History: Reports;: Family Diabetes, Family Heart Disease, Family Hypertension - Social History Smoking Status: Current every day smoker Frequency of Alcohol Use: None Type of Drug Use: None Exam - Constitutional Vitals: Period Temp Pulse Resp BP Sys/Chavarria Pulse Ox Last 24 Hr 97 F-99.0 F 75-88 15-20 107-162/60-88 94-100 Quality Measures - VTE Contraindication to Pharmacological VTE Prophylaxis: High Risk of Bleeding Results - Labs CBC & BMP: 09/07/16 04:19 09/07/16 04:19
[2016-09-07] MEDS: BACITRACIN OINT 0.9 GM PACK TOP SCH (10:35)
--- NOTE | 2016-09-07 11:23 | Pathology Report from [facility] ---
ACCESSION # : [id number] PATIENT NAME : Amado Desai ORDERING DR : ROSAMARIA WELCH MD CLINICAL HX: Ischemic ulcer of toe left foot POST-OP DX: Same SPECIMEN INFO: Left fifth toe GROSS DESCRIPTION: The specimen is received in formalin labeled with the patient 's name and consists of a toe and metatarsal measuring 4.0 x 2.0 x 1.5 cm. There is a 1.6 x 1.8 cm ulceration and gangrenous changes. Slot Floor Person sections submitted in one cassette. DIAGNOSIS FOR AMADO DESAI: LEFT FIFTH TOE, AMPUTATION: Ulceration, necrosis, suppuration/gangrene. SERVICE DATE: 09/06/2016 REPORT DATE: 09/07/2016 PATHOLOGIST: Tylor Lira M.D. [facility]
[2016-09-07] MEDS: ENOXAPARIN 40 MG/0.4 ML SYRINGE SUBCUT SCH (12:04)
--- NOTE | 2016-09-07 14:13 | CT Report ---
CT angio abdomen/femoral Indication: 41-year-old female with severe peripheral arterial disease. Ischemic toe and abnormal ABIs. CT ANGIOGRAM ABDOMINAL AORTA WITH BILATERAL LOWER EXTREMITY RUNOFF DLP: 909 mGy*cm. One or more of the following dose reduction techniques was used: Automated exposure control, adjustment of the mA and/or kV according the patient size, or use of iterative reconstruction techniques. Comparison: 07/31/2015. Technique: Axial thin cut CT images were obtained from the dome of the diaphragm through the feet during the arterial phase of contrast injection. 3-D vascular MIPS reconstructions and multiplanar reformats were evaluated. Omnipaque 350, 120 cc administered. Arteriogram: Aorta is unchanged in appearance with continued atheromatous disease distally. No aortic stenosis or aneurysm. Mesenteric and renal vasculature is stable as well with a duplicated left renal artery originating below. The right common iliac artery and external iliac artery remain completely occluded to the inguinal ligament. The left common iliac artery shows focal 80% diameter stenosis distally, stable. Left external iliac artery is widely patent. Both common femoral arteries are widely patent. The right SFA does show some minimal arterial enhancement proximally and is mid segments with abrupt termination of flow upstream of Jian's canal. Below Jian's canal, there is distal reconstitution of the right popliteal artery which is a well-developed and relatively healthy-appearing vessel. 3 vessel tibioperoneal patency in the right calf noted. The left SFA is patent proximally but then abruptly occludes until Jian's canal where there is distal reconstitution present. The left popliteal artery and 3 tibioperoneal vessels of the left calf are widely patent. Abdomen: Obesity, fatty infiltration of the liver, cholecystectomy clips and normal spleen, pancreas and adrenal glands are unchanged. Cortical scarring of the left kidney appears unchanged as well. Right kidney is unremarkable. Heart size is normal. Dependent atelectasis involves the lung bases. No bowel obstruction. Pelvis: Urinary bladder and rectosigmoid colon are within normal limits by CT. Uterus and adnexal structures are unremarkable as well. Impression: 1. 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 Focal 80% diameter stenosis of the distal left common iliac artery, stable as well. 2. Chronic total occlusion of the distal right SFA which, on the prior study, appear to show complete occlusion of the entire SFA. The proximal right SFA which is patent is extremely small in size indicating diffuse long segment stenosis along its entire length, probably from 70-90% diameter in severity. 3. Segmental occlusion of the mid and distal left SFA above Jian's canal. 4. Widely patent bilateral popliteal arteries with three-vessel patency of the tibioperoneal system in both calves. 5. Cortical scarring left kidney, stable. PROCEDURE INTERPRETED AT [facility] DEPARTMENT OF RADIOLOGY Final Report Signed by: Levi Shepard M.D.
--- NOTE | 2016-09-07 16:32 | Oncology Consult Note ---
History of Present Illness Chief complaint: Thrombocytopenia History of present illness: Ms. Desai is a 41 year old female who was admitted with vascular insufficiency and ischemia of the left fifth toe. She has now undergone surgery. Today she was found to be thrombocytopenic.. Her lab work today includes a platelet count of 58,000 with a mean platelet volume of 12.5, which is elevated. This is the first time her platelet count has been below normal range and his first time that her MCV has been elevated. This suggests destruction of platelets with rapid production versus lab error. She gives no history of prior thrombocytopenia. She has never been told she had a low platelet count. She has had no problems with nosebleeds, bleeding gums, hematuria or GI bleeding. Physical examination: General: The patient is relatively well-developed well-nourished and in no acute distress. Eyes: Normal lids and conjunctivae. ENT: Her teeth are in moderately poor repair. Her oral mucosa and pharynx are normal. Neck: Her trachea is midline. She has no neck masses. Thyroid is normal. Lungs: Breath sounds are normal without rubs, rales or rhonchi. There is symmetrical unlabored chest motion with respiration. Cardiovascular: Her heart rhythm is regular without murmur, gallop or rub. There is no jugular venous distention, clubbing, cyanosis or edema. Abdomen: I palpate no abdominal masses or organomegaly. I cannot palpate her spleen. There is no ascites and no tenderness. Musculoskeletal: Her left foot is bandaged. Otherwise there is no focal muscle atrophy or bone or joint deformity. Neurologic: Cranial nerves II through XII are intact and no focal neurologic deficits. Psychiatric: She appears to be completely oriented to time, place, person and situation. She has been placed on a couple medications that could cause thrombocytopenia including Flagyl and cefazolin. The cefazolin has been discontinued. We will check another CBC in the morning and we will investigate this further if the platelet count is still low. I suspect medication induced thrombocytopenia over immune thrombocytopenia. Thank you for consulting me. Home Medications Medication Instructions Recorded Confirmed Type Aspirin Tab 325 mg PO DAILY #30 tablet 07/29/15 09/04/16 Rx Atorvastatin [Lipitor] 20 mg PO BEDTIME #30 tablet 07/29/15 09/04/16 Rx Furosemide Tab [Lasix Tab] 20 mg PO DAILY #30 tablet 07/29/15 09/04/16 Rx Lisinopril [Prinivil] 40 mg PO DAILY #30 tablet 07/29/15 09/04/16 Rx amLODIPine [Norvasc] 10 mg PO DAILY #30 tablet 07/29/15 09/04/16 Rx glyBURIDE [Diabeta] 5 mg PO BID W/MEALS #60 tablet 07/29/15 09/04/16 Rx hydrALAZINE TAB [Apresoline Tab] 50 mg PO TID #90 tablet 07/29/15 09/04/16 Rx Metoprolol Tartrate Tab [Lopressor 50 mg PO BID 09/04/16 09/04/16 History Tab] Allergies Allergy/AdvReac Type Severity Reaction Status Date / Time No Known Allergies Allergy Verified 07/25/15 13:58 Medical,Surgical,& Family Hx - Medical History Cardio: History of: Hypertension Neurology: History of: Cerebrovascular Accident Endocrine: History of: Diabetes Mellitus (NIDDM), Dyslipidemia Gastrointestinal: History of: Pancreatitis - Surgical History Abdominal Surgeries: Surgical HX of: Cholecystectomy - Family History Family History: Reports;: Family Diabetes, Family Heart Disease, Family Hypertension - Social History Smoking Status: Current every day smoker Frequency of Alcohol Use: None Type of Drug Use: None Exam - Constitutional Vitals: Period Temp Pulse Resp BP Sys/Chavarria Pulse Ox Last 24 Hr 97.3 F-98.2 F 81-101 15-20 125-144/71-87 97-100 Results - Labs CBC & BMP: 09/07/16 04:19 09/07/16 04:19 Quality Measures - VTE Contraindication to Pharmacological VTE Prophylaxis: High Risk of Bleeding
[2016-09-07] MEDS: ATORVASTATIN 20 MG TABLET PO SCH (20:37)
[2016-09-08] MEDS: SODIUM CHLORIDE 0.45% 1,000 ML IV SCH ×4 (02:59→20:46)
[2016-09-08] MEDS: KETOROLAC 15 MG/1 ML VIAL IV SCH ×4 (03:55→20:47)
[2016-09-08] MEDS: CLINDAMYCIN INJ 600 MG in PREMIX 1 EACH IV SCH ×4 (03:56→22:53)
[2016-09-08 04:39] LABS: Basophils % 0.4 % (0.0-0.8); Eosinophils # 0.2 10*3/uL (0.0-0.87); Eosinophils % 3.3 % (0.00-10.9); Hematocrit 36.5 VOL% (35.7-47.0); Hemoglobin 12.3 GM/DL (12.0-16.0); Immature Granulocytes % 0.3 %; Immature Granulocytes Absolute 0.02 #; Lymphocytes # 2.6 10*3/uL (1.4-4.0); Lymphocytes % 37.4 % (21.3-54.2); Mean Corpuscular HGB Conc 33.7 GM/DL (32-36); Mean Corpuscular Hemoglobin 30 PG (27-34); Mean Corpuscular Volume 89.9 FL (87-102); Mean Platelet Volume 11.4 FL (9.6-12.0); Monocytes # 0.8 10*3/uL (0.11-0.8); Monocytes % 10.9 % (1.7-12.7); Neutrophils # 3.3 10*3/uL (1.4-7.4); Neutrophils % 47.7 % (38.7-73.9); Platelet Count 223 T/CUMM (130-400); Red Blood Count 4.06 MC/CUMM (3.8-5.5); Red Cell Distribution Width 13.2 % (9.3-17.3); White Blood Count 6.9 T/CUMM (4-12)
[2016-09-08 05:19] LABS: Albumin 2.8 G/DL (3.4-5.0); Bilirubin,Total 0.8 MG/DL (0.2-1.0); Calcium 8.3 MG/DL (8.5-10.1); Potassium 3.5 MMOL/L (3.5-5.1); Total Protein 6.5 G/DL (6.4-8.3)
[2016-09-08] MEDS: metroNIDAZOLE INJ 500 MG in PREMIX 1 EACH IV SCH ×3 (06:13→20:45)
--- NOTE | 2016-09-08 06:50 | Oncology Progress Note ---
Oncology Subjective PN Interval history: Platelet count today is normal. Please reconsult as needed. Thanks. She has been placed on a couple medications that could cause thrombocytopenia including Flagyl and cefazolin. The cefazolin has been discontinued. Exam - Constitutional Vitals: Period Temp Pulse Resp BP Sys/Chavarria Pulse Ox Last 24 Hr 97.3 F-99.5 F 74-101 17-20 119-140/57-77 96-100 Results - Labs CBC & BMP: 09/08/16 03:32 09/08/16 03:32 Quality Measures - VTE Contraindication to Pharmacological VTE Prophylaxis: High Risk of Bleeding
[2016-09-08] MEDS: INSULIN REGULAR 100 UNIT/ML SUBCUT SCH ×4 (07:42→20:52)
[2016-09-08] MEDS: BACITRACIN OINT 0.9 GM PACK TOP SCH (09:10)
[2016-09-08] MEDS: DOCUSATE SODIUM 100 MG CAPSULE PO SCH ×2 (09:11→20:48)
[2016-09-08] MEDS: glyBURIDE 5 MG TABLET PO SCH ×2 (09:11→17:45)
[2016-09-08] MEDS: ASPIRIN 325 MG TABLET PO SCH (09:11)
[2016-09-08] MEDS: FUROSEMIDE 20 MG TABLET PO SCH (09:12)
[2016-09-08] MEDS: METOPROLOL TARTRATE 50 MG TABLET PO SCH ×2 (09:12→20:48)
[2016-09-08] MEDS: NICOTINE 21 MG/24 HR PATCH TRANSDERM SCH (09:12)
[2016-09-08] MEDS: amLODIPine 10 MG TABLET PO SCH (09:13)
[2016-09-08] MEDS: LISINOPRIL 20 MG TABLET PO SCH (09:13)
[2016-09-08] MEDS: PANTOPRAZOLE 40 MG TABLET PO SCH (09:13)
--- NOTE | 2016-09-08 09:19 | General Surgery Progress Note ---
Subjective Patient reports: Present: no new complaints (Ms. Desai is feeling reasonably well today notably her platelet count has returned to normal making the 58,000 and likely a lab error. At this point time Dr. Shepard is thinking early next week of arteriography with angioplasty stenting recanalization as possible. I will plan to see her next week when we start working on the revascularization efforts.) Exam - Constitutional Vitals: Period Temp Pulse Resp BP Sys/Chavarria Pulse Ox Last 24 Hr 97.5 F-99.5 F 74-101 17-20 119-140/57-77 96-100 Results - Labs CBC & BMP: 09/08/16 03:32 09/08/16 03:32 Quality Measures - VTE Contraindication to Pharmacological VTE Prophylaxis: High Risk of Bleeding
--- NOTE | 2016-09-08 09:52 | General Surgery Progress Note ---
Assessment and Plan - Time spent with patient Time spent with patient: Less than 30 minutes (1) Ischemic ulcer of toe of left foot Status: Acute Assessment and plan: Impression: 1. Ischemic left fifth toe 2. Diabetes [id number] 3. Hypertension 4. Questionable history of CVA Plan. 1. Admit for IV antibiotics 2. Vascular studies 3. Diabetes control 4. Look at surgery for amputation of toe possibly Sunday09/08/2016. Patient is doing well and the wound seems to be healing and is clean without any ischemic changes. Little bit of dark tissue around but I think were stable at this time. Drain is pulled. Patient's platelet count is back up to 230,000. Seeing where Dr. Gibson is going to evaluate and treat the vascular disease and the patient at this time. Current Visit: Yes Qualifiers: Non-pressure ulcer stage: limited to breakdown of skin Qualified Code(s): L97.521 - Non-pressure chronic ulcer of other part of left foot limited to breakdown of skin Subjective Patient reports: Present: feels better, tolerating a regular diet, afebrile Exam - Constitutional Vitals: Period Temp Pulse Resp BP Sys/Chavarria Pulse Ox Last 24 Hr 97.5 F-99.5 F 74-101 17-20 119-140/57-77 96-100 General appearance: mild distress - Head Head exam: Present: normal inspection - ENT ENT exam: Present: normal exam - Neck Neck exam: Present: normal inspection - Respiratory Respiratory exam: Present: clear to auscultation bilaterally - Cardiovascular Cardiovascular exam: Present: RRR - GI/Abdominal GI/Abdominal exam: Present: normal bowel sounds, soft - Extremities Exam Extremities exam: Present: other (Wound of the left foot looks in good shape at this point little bit of dark tissue but we left that in place at the time of her initial surgery in order to build get a closure. Will like to go ahead and pulled the drain today since is not draining much. Cultures still pending on the toe at this time.) - Back Exam Back exam: Present: normal inspection - Neurological Exam Neurological exam: Present: alert, oriented X3, CN II-XII intact - Skin Skin exam: Present: normal color, warm, dry Results - Labs CBC & BMP: 09/08/16 03:32 09/08/16 03:32 Lab Results: I have reviewed the past 24 hour labs Quality Measures - VTE Contraindication to Pharmacological VTE Prophylaxis: High Risk of Bleeding
[2016-09-08] MEDS: ENOXAPARIN 40 MG/0.4 ML SYRINGE SUBCUT SCH (11:12)
[2016-09-08] MEDS: HYDROmorphone 2 MG/1 ML VIAL IV PRN (20:47)
[2016-09-08] MEDS: ATORVASTATIN 20 MG TABLET PO SCH (20:48)
[2016-09-09] MEDS: SODIUM CHLORIDE 0.45% 1,000 ML IV SCH ×3 (01:21→17:00)
[2016-09-09] MEDS: KETOROLAC 15 MG/1 ML VIAL IV SCH ×3 (03:17→14:50)
[2016-09-09] MEDS: CLINDAMYCIN INJ 600 MG in PREMIX 1 EACH IV SCH ×4 (04:24→22:20)
[2016-09-09] MEDS: metroNIDAZOLE INJ 500 MG in PREMIX 1 EACH IV SCH ×3 (05:53→20:53)
[2016-09-09] MEDS: INSULIN REGULAR 100 UNIT/ML SUBCUT SCH ×4 (08:10→20:29)
[2016-09-09] MEDS: ASPIRIN 325 MG TABLET PO SCH (09:12)
[2016-09-09] MEDS: FUROSEMIDE 20 MG TABLET PO SCH (09:12)
[2016-09-09] MEDS: METOPROLOL TARTRATE 50 MG TABLET PO SCH ×2 (09:12→20:54)
[2016-09-09] MEDS: NICOTINE 21 MG/24 HR PATCH TRANSDERM SCH (09:12)
[2016-09-09] MEDS: DOCUSATE SODIUM 100 MG CAPSULE PO SCH ×2 (09:12→20:54)
[2016-09-09] MEDS: LISINOPRIL 20 MG TABLET PO SCH (09:13)
[2016-09-09] MEDS: amLODIPine 10 MG TABLET PO SCH (09:13)
[2016-09-09] MEDS: PANTOPRAZOLE 40 MG TABLET PO SCH (09:13)
[2016-09-09] MEDS: glyBURIDE 5 MG TABLET PO SCH ×2 (09:14→17:26)
[2016-09-09] MEDS: ENOXAPARIN 40 MG/0.4 ML SYRINGE SUBCUT SCH (10:32)
--- NOTE | 2016-09-09 11:28 | Event Note ---
09/09/2016 Patient is afebrile wound is stable at this time. She is set up for some vascular intervention on the first of the week. She is a little bit depressed and saddened that she is not going home. We have tried indicate to her the importance of staying and get this done so that we can improve her flow to her leg to get the healing that we need and hopefully prevent her from eventually losing her lower extremity.
[2016-09-09] MEDS: BACITRACIN OINT 0.9 GM PACK TOP SCH (12:21)
[2016-09-09] MEDS: SKIN HEALING OINT (AQUAPHOR) 50 GM TUBE TOP SCH (14:08)
[2016-09-09] MEDS: ATORVASTATIN 20 MG TABLET PO SCH (20:54)
[2016-09-10] MEDS: SODIUM CHLORIDE 0.45% 1,000 ML IV SCH ×2 (00:58→09:00)
[2016-09-10] MEDS: CLINDAMYCIN INJ 600 MG in PREMIX 1 EACH IV SCH ×2 (04:52→10:16)
[2016-09-10] MEDS: metroNIDAZOLE INJ 500 MG in PREMIX 1 EACH IV SCH ×2 (05:42→13:30)
[2016-09-10] MEDS: INSULIN REGULAR 100 UNIT/ML SUBCUT SCH ×2 (07:30→12:08)
--- NOTE | 2016-09-10 09:19 | Event Note ---
09/10/2016. Patient basically is doing fairly well wound is clean with no sign of any initial breakdown or ischemic changes present. She is set up for possible staining and vascular procedures sometime next week were not sure when though. Patient is anxious about going home so we will see if there is a way that we can arrange for her to go home come out back as an outpatient.
[2016-09-10] MEDS: glyBURIDE 5 MG TABLET PO SCH (10:13)
[2016-09-10] MEDS: ASPIRIN 325 MG TABLET PO SCH (10:14)
[2016-09-10] MEDS: DOCUSATE SODIUM 100 MG CAPSULE PO SCH (10:14)
[2016-09-10] MEDS: FUROSEMIDE 20 MG TABLET PO SCH (10:15)
[2016-09-10] MEDS: METOPROLOL TARTRATE 50 MG TABLET PO SCH (10:15)
[2016-09-10] MEDS: NICOTINE 21 MG/24 HR PATCH TRANSDERM SCH (10:15)
[2016-09-10] MEDS: LISINOPRIL 20 MG TABLET PO SCH (10:16)
[2016-09-10] MEDS: amLODIPine 10 MG TABLET PO SCH (10:16)
[2016-09-10] MEDS: PANTOPRAZOLE 40 MG TABLET PO SCH (10:16)
[2016-09-10 12:11] VITALS: BP 130/69
[2016-09-10] MEDS: ENOXAPARIN 40 MG/0.4 ML SYRINGE SUBCUT SCH (12:37)
--- NOTE | 2016-09-10 12:57 | Discharge Summary ---
Hospital Course - Hospital Course Hospital Course: Discharge summary: Discharge diagnosis: Diabetic ulceration left fifth toe secondary to trauma Secondary diagnosis 1.underlying peripheral arterial disease with bilateral superficial femoral artery occlusion 2. Diabetes mellitus adult onset Procedure: Amputation of the left fifth toe Consultants Dr. Paige Shepard Brief summary: 41-year-old -[place] female comes in after several months of a wound and ulcer of the left fifth toe secondary to trauma. She had been taking care of that has not responded now it was having more pain with a good bit of dark necrotic changes present around toe itself. She is diabetic and her sugars were under fair control in the 200s at this point. We put her in to go to the operating room because of the infection next day and amputated the toe able to close it over drain. She did fairly well with that we did some vascular studies are following that that showed marked decrease in flow to that foot although still at a level that healing may be possible. Because of these changes within the abdomen a CTA ulnar that showed that she had bilateral superficial femoral artery occlusion but had good runoff. Dr. Gibson was consulted he saw her the possibility of the procedure he felt the way to see if the interventional radiologist can improve the flow a little bit maybe get a stent down at this point. This was delayed because of a platelet count of 50, 000 there was a change but the next day was up to 250,000. Oncology had seen her and felt like this is probably a lab error more than anything else. We got caught up against weekend here and no plans were made for Sunday for this arteriogram with procedure to be performed. She was started crazy and anxious about being in the hospital and insisted on going home. Try to explain to her that the wrist she was added in the risk of her foot because of the poor circulation but she said that she would continue to care for it and get back with us at some point. We will go ahead and discharge her and try to maintain our care and get her back to Dr. Shepard for further evaluation and treatment. - Time spent with patient Time with patient DS: Less than 30 minutes Diagnosis - Discharge Diagnosis (1) Ischemic ulcer of toe of left foot Status: Resolved Specialty Discharge - Follow Up or Referrals Follow up with: Efrain Duque MD [Physician] - 2 Weeks - Speciality Discharge Instructions Surgery Instructions: 1. Discontinue careful care to the left foot and wound. 2. Need to keep diabetes under good control. 3. A 2 arrange for her to be seen by the interventional radiologist sometime next week to get something lined up for some improved circulation studies. Discharge Plan - Discharge Data Disposition: Disch To Home/Self Care Condition at Discharge: Stable Discharge Diet: diabetic diet (1800 ADA diet) Activity: increase activity as tolerated, no prolonged standing Hygiene: may shower Weight Bearing at Discharge: full weight bearing Driving: not for (2 weeks) Contact your physician if you experience:: fever over 101, Redness or swelling, Bleeding, pain uncontrolled by pain medications Wound / Dressing Care Instructions: Wound care daily to the left foot wound. 1. May shower wash with soap of choice or the Hibiclens. 2. Apply bacitracin ointment to the incision and cover with a large Band-Aid. 3. Cover with a clean white sock. 4. Moisturizing lotion to the rest of the leg consider buying some Aquaphor for that purpose - Discharge Medications New Acetaminophen Tab [Tylenol Tab] 650 mg PO Q6H PRN #0 tablet PRN Reason: Pain Mild (1-3) And/Or Fever Clindamycin Cap [Cleocin Cap] 300 mg PO Q8HR #30 capsule HYDROcodone/ACETAMIN 7.5-325 [Mcintosh 7.5-325] 1 tablet PO Q6H PRN #30 tablet PRN Reason: Pain Moderate (4-7) Nicotine 21 mg/24 Hr Patch [Nicoderm CQ 21 mg/24 hr Patch] 1 patch TRANSDERM DAILY #30 patch Continue Aspirin Tab 325 mg PO DAILY #30 tablet Atorvastatin [Lipitor] 20 mg PO BEDTIME #30 tablet Furosemide Tab [Lasix Tab] 20 mg PO DAILY #30 tablet hydrALAZINE TAB [Apresoline Tab] 50 mg PO TID #90 tablet glyBURIDE [Diabeta] 5 mg PO BID W/MEALS #60 tablet amLODIPine [Norvasc] 10 mg PO DAILY #30 tablet Lisinopril [Prinivil] 40 mg PO DAILY #30 tablet Metoprolol Tartrate Tab [Lopressor Tab] 50 mg PO BID - Follow Up or Referral - Forms/Instructions Exam - Constitutional Vitals: Period Temp Pulse Resp BP Sys/Chavarria Pulse Ox Last 24 Hr 97.6 F-98.7 F 68-84 16-20 125-134/58-76 96-100 General appearance: no acute distress - Head Head exam: Present: normal inspection - ENT ENT exam: Present: normal exam - Neck Neck exam: Present: normal inspection - Respiratory Respiratory exam: Present: clear to auscultation bilaterally - Cardiovascular Cardiovascular exam: Present: regular rate and rhythm - GI/Abdominal GI/Abdominal exam: Present: hypoactive bowel sounds, soft - Extremities Exam Extremities exam: Present: other (Wound of the left toe is clean and dry without any sign of infection or breakdown.) - Back Exam Back exam: Present: normal inspection - Neurological Exam Neurological exam: Present: alert, oriented X3, CN II-XII intact - Psychiatric Psychiatric exam: Present: normal affect, normal mood - Skin Skin exam: Present: normal color, warm, dry Discharge Results Labs on day of discharge: Labs from last 24 hours 09/10/16 09/10/16 09/09/16 11:46 07:45 20:23 POC Glucose 216 H 88 124 H 09/09/16 15:24 POC Glucose 180 H DS: Provider Date of admission: 09/04/16 16:34 Primary care physician: . No PCP Attending physician on admission: Efrain Duque MD Consults: 09/04/16 17:59 Consult to Pharmacy [CONS] Routine Reason for Pharmacy Consult: Adjust Meds Renal Funct 09/05/16 10:43 Consult to Anesthesiology [CONS] Routine Consulting Provider: Reason for Anesthesiology: Pre-op Clearance 09/07/16 07:20 Consult to Physician [CONS] Routine Comment: Consulting Provider: Kristopher Gibson Consulting Provider Notified: Yes When should Consulting Provider be notified: Now Person Notified: usama called Date Notified: 09/07/16 Time Notified: 08:35 Consult Notification Comment: Diabetic with bilateral superfical femeral artery occlusion with good runoff and ischemic left 5th toe. 09/07/16 09:25 Consult to Physician [CONS] Routine Comment: acute thrombocytopeania Consulting Provider: Levi Webster Consulting Provider Notified: Yes When should Consulting Provider be notified: Now Consult to Specialist Group: Hematology When should Consulting Provider be notified: Now Person Notified: brigida called Date Notified: 09/07/16 Time Notified: 09:31 Discharging clinician: Efrain Duque MD Expected date of discharge: 09/10/16
[2016-09-10] MEDS: BACITRACIN OINT 0.9 GM PACK TOP SCH (13:43)
[2016-09-10] MEDS: SKIN HEALING OINT (AQUAPHOR) 50 GM TUBE TOP SCH (13:43)
== END 2016-09-10 14:28 | disposition home or self-care (01) | DRG 305 ==
LOC: N.ED 14:27 → N.EDINP 16:34 → N.3E 17:09
PROVIDERS: ADMIT Specialist; ATTEND Specialist

== ENCOUNTER 2016-11-29 06:24 | Inpatient (IN) ==
[2016-11-24 12:24] LABS: Alanine Aminotransferase 29 U/L (13-56); Albumin 2.9 G/DL (3.4-5.0); Alkaline Phosphatase 92 U/L (45-117); Aspartate Amino Transferase 16 U/L (0-37); Bilirubin,Total < 0.39 MG/DL (0.2-1.0); Blood Urea Nitrogen 17 MG/DL (7-18); Glucose 237 MG/DL (74-106); Osmolality,Calculated 282.8 MOS/KG (273-304); Potassium 3.9 MMOL/L (3.5-5.1); Sodium 137 MMOL/L (136-145); Total Protein 7.3 G/DL (6.4-8.3)
[2016-11-24 12:30] LABS: Basophils # 0.1 10*3/uL (0.0-0.2); Basophils % 0.6 % (0.0-0.8); Eosinophils # 0.2 10*3/uL (0.0-0.87); Eosinophils % 2.2 % (0.00-10.9); Hematocrit 39.5 VOL% (35.7-47.0); Hemoglobin 13.5 GM/DL (12.0-16.0); Immature Granulocytes % 0.3 %; Immature Granulocytes Absolute 0.02 #; Lymphocytes # 3.7 10*3/uL (1.4-4.0); Lymphocytes % 46.6 % (21.3-54.2); Mean Corpuscular HGB Conc 34.2 GM/DL (32-36); Mean Corpuscular Hemoglobin 31 PG (27-34); Mean Corpuscular Volume 90.8 FL (87-102); Mean Platelet Volume 10.1 FL (9.6-12.0); Monocytes # 0.9 10*3/uL (0.11-0.8); Neutrophils # 3.1 10*3/uL (1.4-7.4); Neutrophils % 39.3 % (38.7-73.9); Platelet Count 248 T/CUMM (130-400); Red Blood Count 4.35 MC/CUMM (3.8-5.5); Red Cell Distribution Width 13.1 % (9.3-17.3); White Blood Count 7.9 T/CUMM (4-12)
[2016-11-24 12:38] LABS: Eosinophils 3 % (0-10); Hypochromasia Slight; Lymphocytes 43 % (20-55); Ovalocytes Slight; Platelet Estimate Adequate; Segmented Neutrophils 43 % (50-85); Total Cells Counted 100
[2016-11-29] MEDS ORDERED: HEPARIN/NACL 0.9% 2 UNITS/ML 2,000 ML IV ONE (07:50)
--- NOTE | 2016-11-29 08:19 | IR History and Physical Update ---
IR Pre-Procedure - History and Physical H&P was reviewed, the patient examined and there: are no changes in the patients condition since last H&P was completed. Reason for procedure:: claudication and h/o amputation of left toe due to ischemia with poor wound healing - Dictation Physical: refer to scanned H&P - Physical Exam Mental Status: alert and oriented Heart: regular rate and rhythm Lung: clear to auscultation Abdomen: within normal limits Peripheral pulses: 0: Common Femoral (R), Dorsalis Pedis (R), Dorsalis Pedis (L) , 1+: Posterior Tibialis (R), Posterior Tibialis (L), 2+: Common Femoral (L) - Sedation IR anesthesia plan for sedation: moderate ASA Class: II Airway Assessment: Class II: Soft palate, uvula, fauces visible - Risks Risks: Procedures explained. Risks discussed include, but not limited to, the following:[ bleeding, infection, injury to vessels, distal embolization, need for further surgery] All questions answered. The following alternatives were discussed:[ open surgery] Risks and benefits discussed with: patient Consent obtained from: patient Assessment and Plan - Time spent with patient Time spent with patient: Less than 30 minutes (1) Severe peripheral arterial disease Problem details: bilateral SFA occlusions and right SHELDON occlusion with left SHELDON moderate stenosis Status: Acute Assessment and plan: angiogram today with hope of improving SHELDON inflow to CFAs may need further surgery bypass - Fem-Fem and/or Fem-pop Current Visit: No (2) Ischemic ulcer of toe of left foot Problem details: left small toe amputation in September 2016 - still healing but looks ok Status: Resolved Assessment and plan: continue current wound care Current Visit: No Qualifiers: Non-pressure ulcer stage: limited to breakdown of skin Qualified Code(s): L97.521 - Non-pressure chronic ulcer of other part of left foot limited to breakdown of skin
[2016-11-29] MEDS ORDERED: DIAZEPAM 5 MG TABLET PO ONE (08:24)
[2016-11-29] MEDS ORDERED: MIDAZOLAM 2 MG/2 ML VIAL IV ONE (08:24)
[2016-11-29] MEDS ORDERED: fentaNYL 100 MCG/2 ML VIAL IV ONE (08:24)
[2016-11-29] MEDS ORDERED: SODIUM CHLORIDE 0.9% 100 ML IV ONE (08:28)
[2016-11-29] MEDS ORDERED: ceFAZolin 1,000 MG VIAL ONE (08:28)
[2016-11-29] MEDS: SODIUM CHLORIDE 0.45% 1,000 ML IV SCH (08:34)
[2016-11-29] MEDS ORDERED: DIAZEPAM 5 MG TABLET ONE (10:18)
[2016-11-29] MEDS ORDERED: fentaNYL 100 MCG/2 ML VIAL ONE (11:10)
[2016-11-29] MEDS ORDERED: MIDAZOLAM 2 MG/2 ML VIAL ONE (11:10)
[2016-11-29] MEDS ORDERED: NICOTINE 21 MG/24 HR PATCH TRANSDERM PRN (12:18)
[2016-11-29] MEDS ORDERED: ALBUTEROL 2.5 MG/3 ML NEB RESP TX PRN (12:18)
[2016-11-29] MEDS ORDERED: DEXTROSE 50% 25 GM/50 ML VIAL IV PRN (12:18)
[2016-11-29] MEDS ORDERED: GLUCAGON 1 MG VIAL IM PRN (12:18)
[2016-11-29] MEDS ORDERED: ALTEPLASE 2 MG VIAL ONE (12:20)
[2016-11-29] MEDS ORDERED: HEPARIN 5,000 UNIT/1 ML VIAL ONE (12:20)
[2016-11-29] MEDS ORDERED: HEPARIN/NACL 0.9% 2 UNITS/ML 1,000 ML IV ONE (12:20)
--- NOTE | 2016-11-29 12:24 | History and Physical Update ---
History and Physical Update - Dictation Physical: refer to scanned H&P (Dr. Tse has been successful in angioplasty in the distal aorta and common iliac but there appears to be a good bit of fresh thrombus. We have discussed treatment options and feel the best approach is to proceed with thrombolyzes overnight and then reevaluate with arteriography tomorrow to determine what would be our best approach from the standpoint of spinning the distal aorta and iliac or iliacs. Patient will be placed in the intensive care unit for thrombolyzes overnight)
[2016-11-29] MEDS ORDERED: HEPARIN 5,000 UNIT/1 ML VIAL IV ONE (12:26)
[2016-11-29] MEDS: ALTEPLASE 24 MG in SODIUM CHLORIDE 0.9% 480 ML IV SCH (12:38)
--- NOTE | 2016-11-29 13:04 | Post Interventional Procedure ---
Pre-op diagnosis: Peripheral vascular disease and nonhealing ulceration left foot Post-op diagnosis: same Procedure: aortography with angioplasty and recannilzation of the left common iliac artery Thrombolysis of the distal aorta and iliac vessels Will recheck tomorrow after 12-18 hours thrombolysis Contrast: 60 mL visi 320 Flouroscopy: 12.6 mins Radiologist: Hipolito Garcia Anesthesia: conscious sedation Medications: 2 mg IV Versed 100 mcg IV Fentanyl 5000 Units IV heparin Total Sedation Time: 70 mins Specimens: none sent Estimated blood loss: minimal (10 mL) Complications: none Condition: stable Description/Findings: see formal dictation for details Assessment and Plan - Time spent with patient Time spent with patient: Greater than 30 minutes Time spent discussing smoking cessation with patient: more than 10 minutes (1) Severe peripheral arterial disease Problem details: bilateral SFA occlusions and right SHELDON occlusion with left SHELDON moderate stenosis Status: Acute Assessment and plan: angiogram today with hope of improving SHELDON inflow to CFAs may need further surgery bypass - Fem-Fem and/or Fem-pop Post OP notes: successful left common iliac artery recannilization with significant distal aorta thrombus - will treat with TPA overnight and again attempt improved flow into the iliac arteries Paige aware of patient and assisting in ICU admission Current Visit: No (2) Ischemic ulcer of toe of left foot Problem details: left small toe amputation in September 2016 - still healing but looks ok Status: Resolved Assessment and plan: continue current wound care Current Visit: No Qualifiers: Non-pressure ulcer stage: limited to breakdown of skin Qualified Code(s): L97.521 - Non-pressure chronic ulcer of other part of left foot limited to breakdown of skin
[2016-11-29 13:20] LABS: Amorphous Crystals,Urine Occasional /HPF (Few); Apearance,Urine CLEAR (Clear); Bacteria,Urine Occasional /HPF (Few); Bilirubin,Urine Negative (Negative); Blood, Urine Moderate mg/dL (Negative); Glucose,Urine (UA) 150 mg/dL (Negative); Ketones,Urine Negative (Negative); Mucus,Urine Occasional /LPF (Occasional); Nitrite,Urine Negative (Negative); Protein,Urine 100 MG/DL; RBC,Urine 5 /HPF (0-4); Squamous Epithelial Cell,Urine Occasional /HPF (0-10); Urine Color Yellow (Yellow); Urine Specific Gravity 1.014 (1.001-1.035); Urine Urobilinogen < 2.0 EU/DL (0.2-1.0); WBC,Urine 1 /HPF (0-6)
[2016-11-29] MEDS ORDERED: HEPARIN DRIP 25,000 UNITS/500 ML PREMIX IV SCH (13:30)
[2016-11-29 13:52] LABS: PT Patient Result 10.9 SECS
[2016-11-29] MEDS ORDERED: NITROPRUSSIDE 50 MG/2 ML VIAL IV SCH (14:00)
[2016-11-29] MEDS ORDERED: NITROPRUSSIDE 100 MG in DEXTROSE 5% 246 ML IV SCH (14:00)
[2016-11-29 14:02] LABS: Partial Thromboplastin Time 87.8 SECS (0-40)
[2016-11-29] MEDS: SODIUM CHLORIDE 0.9% 1,000 ML IV SCH (14:05)
--- NOTE | 2016-11-29 15:06 | Consultation ---
Assessment and Plan (1) Severe peripheral arterial disease Problem details: bilateral SFA occlusions and right SHELDON occlusion with left SHELDON moderate stenosis Status: Acute Assessment and plan: Continue IV heparin, continue management as per vascular surgeon, , patient would be in ICU overnight. 2. Diabetes, uncontrolled: Patient is on sliding scale insulin, will start glipizide. Will get diabetes consult reeducation. Get A1c lab. 3. Hypertension, uncontrolled: On nitroprusside drip, will start her home medication, metoprolol, amlodipine, hydralazine for now. 4. 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 operator use (3) Hypertension Status: Chronic Current Visit: Yes Qualifiers: Hypertension type: essential hypertension (4) Cigarette nicotine dependence, uncomplicated Status: Chronic Current Visit: Yes (5) History of CVA (cerebrovascular accident) Status: Chronic Current Visit: Yes (6) Dyslipidemia Status: Chronic Current Visit: Yes (7) Non compliance w medication regimen Status: Chronic Current Visit: Yes History of Present Illness - Data of Consult Patient: new to practice (as per patient's history i have seen patient 2 years ago,) Consult date: 11/29/16 Requesting Physician: Kristopher Gibson - Consult Narrative Reason for consult: Management of uncontrolled diabetes, hypertension, and other medical issues History of present illness: Ms. Desai is a 41 year old female I have been consulted for Management of uncontrolled diabetes, hypertension, and other medical issues. did not see any PCP in past year or so, Patient has been under dosing and not taking her medications Compliantly,as listed in her home medications. Presently she is s/p aortography with angioplasty and recannilzation of the left common iliac artery, Thrombolysis of the distal aorta and iliac vessels on IV heparin, On nitroprusside drip now, pt has no c/o chestpain/SOB/Headaches/, no leg pain , has h/o left CVA in 07/2015, has residual weakness at left side, mentions has blurry vision on and off, last eye check 3 months ago, LMP ongoing, CC: Kristopher Gibson MD - Home Medications and Allergies Home Medications: Home Medications Medication Instructions Recorded Confirmed Type Aspirin Tab 325 mg PO DAILY #30 tablet 07/29/15 11/29/16 Rx Atorvastatin [Lipitor] 20 mg PO BEDTIME #30 tablet 07/29/15 11/29/16 Rx Furosemide Tab [Lasix Tab] 20 mg PO DAILY #30 tablet 07/29/15 11/29/16 Rx Lisinopril [Prinivil] 40 mg PO DAILY #30 tablet 07/29/15 11/29/16 Rx glyBURIDE [Diabeta] 5 mg PO BID W/MEALS #60 tablet 07/29/15 11/29/16 Rx hydrALAZINE TAB [Apresoline Tab] 50 mg PO TID #90 tablet 07/29/15 11/29/16 Rx Metoprolol Tartrate Tab [Lopressor 50 mg PO BID 09/04/16 11/29/16 History Tab] Clindamycin Cap [Cleocin Cap] 300 mg PO Q8HR #30 capsule 09/10/16 11/29/16 Rx Nicotine 21 mg/24 Hr Patch 1 patch TRANSDERM DAILY #30 patch 09/10/16 11/29/16 Rx [Nicoderm CQ 21 mg/24 hr Patch] amLODIPine [Norvasc] 10 mg PO BEDTIME 11/24/16 11/29/16 History Allergies/Adverse Reactions: Allergies Allergy/AdvReac Type Severity Reaction Status Date / Time No Known Allergies Allergy Verified 11/29/16 08:10 - Constitutional Constitutional: Present: as per HPI - EENT Eyes: Present: as per HPI Ears: Present: as per HPI Nose, mouth and throat: Present: as per HPI - Cardiovascular Cardiovascular: Present: as per HPI - Respiratory Respiratory: Present: as per HPI - Gastrointestinal Gastrointestinal: Present: as per HPI - Genitourinary Genitourinary: Present: as per HPI - Musculoskeletal Musculoskeletal: Present: as per HPI - Neurological Neurological: Present: as per HPI Medical,Surgical,& Family Hx - Medical History Cardio: History of: Hypertension Neurology: History of: Cerebrovascular Accident (2016.), Peripheral Neuropathy No history of: Seizures HEENT: History of: Eye Problem (GLASSES) Endocrine: History of: Diabetes Mellitus (NIDDM), Dyslipidemia Respiratory: No history of: Respiratory Problems (FLU VAC- NO; PNEU VAC-NO.) Gastrointestinal: History of: Pancreatitis Musculoskeletal: History of: Amputation (LT FIFTH TOE), Back/Neck Problems, Musculoskeletal Problems (ARTHRITIS.) Other: History of: MRSA (LEFT TOE) - Surgical History Cardiac Surgeries: Patient Denies: Femoral-Popliteal Bypass Graft, Cardiac Catheterization, Cardiac Surgery, Carotid Endarterectomy, Internal Defibrillator, Vascular Access Devices Thoracic Surgeries: Patient denies;: Organ Transplant, Lobectomy HEENT Surgeries: Patient denies: Carotid Endarterectomy Abdominal Surgeries: Surgical HX of: Cholecystectomy, Colonoscopy Patient denies: Splenectomy Reproductive Surgeries: Patient denies;: Gynecologic Surgery - Family History Family History: Reports;: Family Diabetes, Family Heart Disease, Family Hypertension - Social History Smoking Status: Current every day smoker Frequency of Alcohol Use: None Type of Drug Use: None Exam - Constitutional Vitals: Period Temp Pulse Resp BP Sys/Chavarria Pulse Ox Last 24 Hr 98 F-98.3 F 68-88 12-20 141-205/86-115 96-100 Exam: General Examination: Patient examined ICU GENERAL APPEARANCE: alert and oriented, pleasant, in no acute distress, . HEENT: normal. EYES: extraocular movement intact (EOMI), conjunctiva clear, normal. NECK/THYROID: , no thyromegaly. HEART: regular rate and rhythm, no murmurs, rubs, gallops. LUNGS: clear to auscultation bilaterally, no wheezes, rales, rhonchi. ABDOMEN: soft, nontender, nondistended, no organomegaly , bowel sounds present. EXTREMITIES: no edema. Has dressing over left lateral foot near the fifth digit , surrounding area no erythema noted. Dorsalis pedis 1+ at the left NEUROLOGIC: alert and oriented, cranial nerves 2-12 grossly intact, strength 5 / 5, Rt UE, 4-/5 left UE, - Head Head exam: Present: normocephalic, atraumatic Results - Labs CBC & BMP: 11/24/16 12:20 11/24/16 12:00 Lab Results: I have reviewed the past 24 hour labs Quality Measures - VTE Contraindication to Pharmacological VTE Prophylaxis: High Risk of Bleeding
--- NOTE | 2016-11-29 16:08 | Interventional Radiology Rpt ---
IR angio Ext BI, IR guard captain iliac, IR TPA trans cath inf arterial, IR angio abdominal w serial, US guide vascular access Clinical Information: 41-year-old female with history of diabetes and long-standing tobacco abuse. Patient has history of bilateral lower extremity (left more so than right) claudication and recent left small toe amputation and poor wound healing (September 2016). Preprocedural creatinine = 1.4. Approximately Amalia class III-IV patient with bilateral lower extremity claudication with minimal ambulation less than 100 paces. Noninvasive ankle brachial index testing was abnormal. No abnormal stress EKG cardiac echo or nuclear stress scans for the previous 2 years. Physician: Dr. Garcia Procedure: The patient was advised of the benefits, risks, and alternatives of the procedure and informed consent was obtained. A time out was performed with verification of the patient's name, MRN, site of procedure, and type of procedure to be performed. The patient was positioned in the supine position on the angiographic table. The site was prepped and draped in the usual sterile fashion. Moderate sedation was performed by the physician including the presence of an independent trained observer that assisted in monitoring the patient's level of consciousness and physiological status. Following the administration of 2 mg intravenous Versed and 100 mcg intravenous fentanyl the physician spent 70 minutes of continuous [id number] time with the patient. A asphalt dauber radiograph reveals no relevant abnormality. 2% lidocaine was used for local anesthesia. Initially, the left common femoral artery was accessed with a microintroducer set. Ultrasound guidance was utilized for vascular access due to patient obesity. Ultrasound image was retained for the patient's permanent record. A short 0.018" wire was inserted and the needle was exchanged for a 4 Fr microintroducer sheath. The guidewire and dilator were removed and a 0.035" J-wire was advanced into the left hemipelvis. The 6 Fr sheath was placed over the wire. Initially, the Glidewire could not be passed into the distal abdominal aorta. The Tegtmeyer catheter was advanced into the left external iliac artery. Left external iliac arteriogram, there is one, demonstrates complete occlusion of the left common iliac artery. There is a runoff via the internal and external iliac vessels, which remain patent with minimal atherosclerotic plaque and luminal stenosis. Subsequently, the Glidewire was able to be successfully advanced through the true lumen into the abdominal aorta. A Tegtmeyer catheter was advanced into the abdominal aorta. Brief arteriogram demonstrates positioning within the true lumen and complete distal aortocaval occlusion. A 5F measuring pigtail catheter then inserted over the wire inserted through the sheath and placed into the lower abdominal aorta. At this point, access into the right common femoral artery was subsequently obtained. The microwire did not pass into the distal abdominal aorta. The Glidewire also could not be passed into the distal abdominal aorta. However, the 6 Mongolian vascular sheath was placed over the wire into the right external iliac artery. Brief arteriogram via the sheath demonstrates complete occlusion of the right common and external iliac arteries. There is no significant retrograde or antegrade flow visualized into the common femoral artery. The Glidewire was manipulated through the right common femoral artery and initially felt to findings true lumen. However, brief arteriogram via the Tegtmeyer catheter demonstrates a submental positioning of the catheter within the distal aorta. There is some filling of the aortic lumen, although this is severely limited. Subsequent aortogram via the pigtail measuring catheter again demonstrates complete occlusion of the distal aorta and bilateral common iliac arteries. The right common and external iliac arteries appear occluded. There is minimal runoff in the right common femoral artery visualized. There is significant hypertrophy of the lumbar, renal and inferior mesenteric arteries with multiple collaterals to the pelvic vasculature. This is consistent with TASC grade of D. The Tegtmeyer catheter within the right common iliac artery was withdrawn and additional attempts to find the true lumen were attempted near the aortic bifurcation. This was unsuccessful. Initial consideration for reentry device was considered however, given the patient age and likely soft thrombus within the distal aorta, this may resolve with probable lysis. Therefore, angioplasty of the left distal common iliac complete stenosis/occlusion was performed with an 8 x 80 mm Bradford balloon. Following angioplasty, there is latter day of flow into the left common iliac artery. However, there are multiple filling defects visualized within the distal aorta likely representing subacute/chronic thrombus. Additionally, there is some visualization of reconstitution within the right iliac vasculature. Given the findings, thrombolysis will be required. Therefore, a 10 cm 5 Mongolian infusion catheter was advanced over the wire and positioned along the distal aortic and left common iliac stenosis. 2 mg of TPA was loaded into the distal aorta through the infusion catheter. Subsequently, this was connected to a TPA infusion at a rate of 1 mg per hour. Total length of the occluded vessel is: 6 cm including the left common iliac and approximately 12 cm including the right common and external iliac arteries Total length of treatment performed: 8 cm Both 6 Mongolian groin sheath was left in place with heparin saline infusion at 20 mL/h. The patient tolerated the procedure well and transferred to inpatient intensive care for observation in stable condition. EBL: < 20 mL. Complications: None. Fluoroscopy time: 12.9 minutes Conclusion: 1. Complete aortoiliac occlusion. 2. Successful recanalization of the left common iliac artery with significant distal aortic and common iliac filling defects likely representing thrombus. Thrombolytic infusion catheter placed across the area of defects for overnight thrombolysis. 3. Initial unsuccessful recanalization of the right common and external iliac arteries. However, the right common femoral artery sheath was left in place pending overnight thrombolysis and reevaluation. PROCEDURE INTERPRETED AT [facility] DEPARTMENT OF RADIOLOGY Final Report Signed by: Hipolito Garcia
[2016-11-29] MEDS: INSULIN LISPRO 100 UNIT/ML SUBCUT SCH ×2 (16:45→20:52)
[2016-11-29] MEDS: glyBURIDE 5 MG TABLET PO SCH (16:58)
[2016-11-29] MEDS ORDERED: HEPARIN/NACL 0.9% 2 UNITS/ML 500 ML IV SCH (18:00)
[2016-11-29 19:24] LABS: PT Patient Result 10.2 SECS
[2016-11-29] MEDS: hydrALAZINE 25 MG TABLET PO SCH (20:53)
[2016-11-29] MEDS: METOPROLOL TARTRATE 25 MG TABLET PO SCH (20:53)
[2016-11-29] MEDS: HEPARIN/NACL 0.9% 2 UNITS/ML 500 ML IV SCH (21:26)
[2016-11-29] MEDS: ONDANSETRON 4 MG/2 ML VIAL IV PRN (22:33)
[2016-11-29] MEDS: HYDROmorphone 2 MG/1 ML VIAL IV PRN (22:33)
[2016-11-30 01:15] LABS: Partial Thromboplastin Time 40.8 SECS (0-40)
[2016-11-30] MEDS: HEPARIN/NACL 0.9% 2 UNITS/ML 500 ML IV SCH (03:47)
[2016-11-30] MEDS: SODIUM CHLORIDE 0.9% 1,000 ML IV SCH ×3 (03:47→23:15)
[2016-11-30 05:50] LABS: PT Patient Result 10.4 SECS
[2016-11-30 05:52] LABS: Basophils # 0.1 10*3/uL (0.0-0.2); Basophils % 0.6 % (0.0-0.8); Eosinophils # 0.1 10*3/uL (0.0-0.87); Eosinophils % 1.5 % (0.00-10.9); Hematocrit 32.6 VOL% (35.7-47.0); Hemoglobin 11.4 GM/DL (12.0-16.0); Immature Granulocytes % 0.2 %; Immature Granulocytes Absolute 0.02 #; Lymphocytes # 3.5 10*3/uL (1.4-4.0); Lymphocytes % 40.9 % (21.3-54.2); Mean Corpuscular Hemoglobin 31 PG (27-34); Mean Corpuscular Volume 89.8 FL (87-102); Mean Platelet Volume 10.9 FL (9.6-12.0); Monocytes # 0.8 10*3/uL (0.11-0.8); Monocytes % 9.1 % (1.7-12.7); Neutrophils % 47.7 % (38.7-73.9); Platelet Count 207 T/CUMM (130-400); Red Blood Count 3.63 MC/CUMM (3.8-5.5); Red Cell Distribution Width 13.1 % (9.3-17.3); White Blood Count 8.5 T/CUMM (4-12)
[2016-11-30 06:14] LABS: Calcium 7.7 MG/DL (8.5-10.1); Osmolality,Calculated 282.5 MOS/KG (273-304); Potassium 3.6 MMOL/L (3.5-5.1)
[2016-11-30] MEDS ORDERED: HEPARIN/NACL 0.9% 2 UNITS/ML 3,000 ML IV ONE (06:45)
[2016-11-30] MEDS: HYDROmorphone 2 MG/1 ML VIAL IV PRN (08:00)
[2016-11-30] MEDS ORDERED: HYDROmorphone 2 MG/1 ML VIAL ONE (08:03)
[2016-11-30] MEDS: METOPROLOL TARTRATE 25 MG TABLET PO SCH ×2 (08:41→20:43)
[2016-11-30] MEDS: hydrALAZINE 25 MG TABLET PO SCH ×3 (08:41→20:43)
[2016-11-30] MEDS: amLODIPine 10 MG TABLET PO SCH (08:41)
--- NOTE | 2016-11-30 09:16 | Event Note ---
Ms. Desai is had successful thrombolysis of the lower aorta and the left common iliac and successful angioplasty and thrombolyzes of the right common iliac we now have restored flow to the superficial femoral and popliteal arteries. Discussed with Dr. Garcia I think at this point we may see how she does over the next week or 2 and if we see good healing of the left foot then simply continue with aspirin and Plavix and on the other hand the healing does not proceed as wished we will look into angioplasty or bypassing on the left leg. Blood pressure still high we will keep her in ICU this morning to get better control of that possibly will allow her to be discharged this evening
[2016-11-30] MEDS: CLOPIDOGREL 75 MG TABLET PO SCH (09:31)
[2016-11-30] MEDS: ASPIRIN EC 81 MG TABLET PO SCH (09:32)
[2016-11-30] MEDS: PANTOPRAZOLE 40 MG TABLET PO SCH (09:50)
[2016-11-30] MEDS: LISINOPRIL 20 MG TABLET PO SCH (09:50)
[2016-11-30] MEDS: INSULIN LISPRO 100 UNIT/ML SUBCUT SCH ×4 (09:53→20:21)
[2016-11-30] MEDS: glyBURIDE 5 MG TABLET PO SCH ×2 (09:53→18:14)
[2016-11-30] MEDS: SODIUM CHLORIDE 0.45% 1,000 ML IV SCH (09:53)
--- NOTE | 2016-11-30 11:38 | Family Practice Progress Note ---
Family Practice - PN: Subj Interval history: Patient seen and examined in the ICU. No overnight events reported by the nurse, No fever, chest pain, shortness of breath. Pain is well controlled, on Dilaudid,and Pollok when necessary Presently patient is being restarted on oral home medications, tolerating well. As per notes of vascular surgery, today ,patient had successful thrombolysis of the lower aorta and the left common iliac and successful angioplasty and thrombolyzes of the right common iliac we now have restored flow to the superficial femoral and popliteal arteries. Exam (Progress Note) - Constitutional Vitals: Period Temp Pulse Resp BP Sys/Chavarria Pulse Ox Last 24 Hr 97.3 F-98.9 F 68-99 11-20 112-205/72-131 93-100 Exam: General Examination: Patient examined ICU GENERAL APPEARANCE: alert and oriented, pleasant, in no acute distress, lying in the bed comfortably. HEENT: normal. EYES: extraocular movement intact (EOMI), conjunctiva clear, normal. NECK/THYROID: , no thyromegaly. HEART: regular rate and rhythm, no murmurs, rubs, gallops. LUNGS: clear to auscultation bilaterally, no wheezes, rales, rhonchi. ABDOMEN: soft, nontender, nondistended, no organomegaly , bowel sounds present. EXTREMITIES: no edema. Has irregular unhealed wound x2 , approx 0.5 to 1.5cm, at the stump of left small toe, NEUROLOGIC: alert and oriented, cranial nerves 2-12 grossly intact, strength 5 / 5, Rt UE, 4-/5 left UE, Results - Labs CBC & BMP: 11/30/16 04:55 11/30/16 04:55 Lab Results: I have reviewed the past 24 hour labs Labs: Hemoglobin A1c 9.3, Last 24 hours blood glucose ranging from 127 to 211 Assessment and Plan (1) Severe peripheral arterial disease Problem details: bilateral SFA occlusions and right SHELDON occlusion with left SHELDON moderate stenosis Status: Acute Assessment and plan: s/p angioplasty successful thrombolysis , on aspirin and Plavix, continue management as per vascular surgeon, , Ambulation 2. Diabetes, uncontrolled: Patient is on sliding scale insulin, on glipizide. 3. Hypertension, uncontrolled: on metoprolol, amlodipine, increase hydralazine to 50 mg PO TID, added lisinopril 20 daily this AM. 4. 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 mellitus senior care insulin use: without senior care use (3) Hypertension Status: Chronic Current Visit: Yes Qualifiers: Hypertension type: essential hypertension Qualified Code(s): I10 - Essential (primary) hypertension (4) Cigarette nicotine dependence, uncomplicated Status: Chronic Current Visit: Yes (5) History of CVA (cerebrovascular accident) Status: Chronic Current Visit: Yes (6) Dyslipidemia Status: Chronic Current Visit: Yes (7) Non compliance w medication regimen Status: Chronic Current Visit: Yes Quality Measures - VTE Contraindication to Pharmacological VTE Prophylaxis: High Risk of Bleeding
[2016-11-30] MEDS ORDERED: ONDANSETRON 4 MG TABLET PO ONE (12:29)
[2016-11-30] MEDS ORDERED: ONDANSETRON ODT 4 MG TABLET PO ONE (12:29)
[2016-11-30] MEDS: ALTEPLASE 24 MG in SODIUM CHLORIDE 0.9% 480 ML IV SCH (12:37)
[2016-11-30 12:41] LABS: Partial Thromboplastin Time 27.4 SECS (0-40)
[2016-11-30] MEDS: ONDANSETRON 4 MG/2 ML VIAL IV PRN ×3 (13:16→20:22)
[2016-11-30] MEDS ORDERED: DEXAMETHASONE INJ 10 MG in SODIUM CHLORIDE 0.9% 50 ML IV ONE (13:43)
[2016-11-30] MEDS ORDERED: METOCLOPRAMIDE 10 MG/2 ML VIAL IV ONE (13:43)
[2016-11-30] MEDS ORDERED: DEXAMETHASONE 4 MG/1 ML VIAL IV ONE (14:00)
[2016-11-30] MEDS: hydrALAZINE 20 MG/1 ML VIAL IV SCH ×3 (14:34→20:22)
--- NOTE | 2016-11-30 15:07 | Post Interventional Procedure ---
Pre-op diagnosis: left foot ischemic ulceration, bilateral iliac occlusions Post-op diagnosis: same Procedure: post thrombolysis recheck with angioplasty of the right common and external iliac arteries Contrast: 65 mL Visi 320 Flouroscopy: 12.6 min Radiologist: Hipolito Garcia Anesthesia: conscious sedation Medications: 1 mg Dilaudid Total Sedation Time: 45 min Specimens: none sent Estimated blood loss: minimal (10 ml) Complications: none Condition: stable Description/Findings: post thrombolysis angiograms demonstrate near complete dissolution of clot in the distal aorta. Right common and external iliac arteries however remain completely occluded with no flow. The initial aortogram demonstrates widely patent flow into the left common and external iliac arteries. Initial probing of the Glidewire resulted in recannulization/catheterization of the right common femoral artery. Over this wire, 8 mm angioplasty was performed throughout the common and external iliac vessels. The post angioplasty angiogram demonstrates widely patent tenriism of flow from the aorta into both iliac vessels. Minimal filling defects noted within the right internal iliac artery likely represent small residual thrombus, which will not be directly treated. Patient tolerated the procedure well. Initial plan will likely be to start aspirin and Plavix and follow clinically for healing of the left toe soft tissue ulceration. If there is limited or poor healing, will consider further angiography and/or surgery to improve flow. This patient has known bilateral SFA occlusions, which have not been treated. Likely discharge home today and f/u with Dr. Gibson Assessment and Plan - Time spent with patient Time spent with patient: Greater than 30 minutes (1) Severe peripheral arterial disease Problem details: bilateral SFA occlusions and right SHELDON occlusion with left SHELDON moderate stenosis Status: Acute Assessment and plan: angiogram today with hope of improving SHELDON inflow to CFAs may need further surgery bypass - Fem-Fem and/or Fem-pop Post OP notes: successful left common iliac artery recannilization with significant distal aorta thrombus - will treat with TPA overnight and again attempt improved flow into the iliac arteries Paige aware of patient and assisting in ICU admission Post op after thrombolysis: Complete recannilization of the distal aorta and bilateral iliac arteries Current Visit: Yes (2) Ischemic ulcer of toe of left foot Problem details: left small toe amputation in September 2016 - still healing but looks ok Status: Resolved Assessment and plan: continue current wound care Post Op: will start aspirin and plavix with clinical follow up of wound healing now that blood flow should be markedly improved Current Visit: No Qualifiers: Non-pressure ulcer stage: limited to breakdown of skin Qualified Code(s): L97.521 - Non-pressure chronic ulcer of other part of left foot limited to breakdown of skin
[2016-11-30] MEDS: METOPROLOL TARTRATE 5 MG/5 ML VIAL IV SCH ×3 (15:35→23:38)
--- NOTE | 2016-11-30 15:41 | Interventional Radiology Rpt ---
IR urokinase cease thymolysis, IR port captain iliac Clinical Information: 41-year-old female with aortoiliac occlusion/thrombosis. Patient now presents for follow-up after overnight thrombolysis. Physician: Dr. Garcia Total fluoroscopy time: 12.6 minutes. Total number of images for the procedure: 133 Procedure: The patient was advised of the benefits, risks, and alternatives of the procedure and informed consent was obtained. A time out was performed with verification of the patient's name, MRN, site of procedure, and type of procedure to be performed. The patient was positioned in the supine position on the angiographic table. The site was prepped and draped in the usual sterile fashion. Moderate sedation was performed by the physician including the presence of an independent trained observer that assisted in monitoring the patient's level of consciousness and physiological status. Following the administration of 1 mg intravenous Versed, the physician spent 45 minutes of continuous [id number] time with the patient. A blending coordinator radiograph reveals indwelling bilateral groin sheaths and distal aortic lysis catheter. The lysis catheter occlusion wire was removed. A J-wire was advanced into the aorta. A measuring pigtail catheter was passed over the J-wire. Initial aortogram demonstrates near complete resolution/dissolution of the distal aortic thrombus with near direct straight line flow into the left common iliac artery. Minimal flow into the right common iliac artery is also partially visualized. A 5F Omniflush catheter was exchanged for a C2 catheter. The right groin sheath injection demonstrates minimal contrast pooling possibly within the submental space along the right common and external iliac arteries. There is some supply into the inferior epigastric artery however noted. Using the C2 catheter and Glidewire, the right common iliac artery was catheterized. Arteriogram demonstrates occluded common and external iliac arteries with minimal flow into the right internal iliac artery and branches. Additional probing with the Glidewire resulted in passage into the right groin. The right common femoral artery was catheterized. Arteriogram confirms positioning within the intraluminal right common femoral artery. Again, there is severe stenosis of the right superficial femoral artery with primary supply via the right profunda. Given the findings, the catheter was removed. A sheath injection demonstrates minimal contrast throughout the external and common iliac arteries, consistent with proximal occlusion 8 x 80 mm angioplasty throughout the common and external iliac arteries was performed. Following angioplasty, initial injection demonstrates nearly widely patent common and external iliac arteries with near direct straight line flow into the right common femoral artery. Several small filling defects are visualized within the internal iliac artery, likely representing small residual thrombus. Final arteriogram via the sheath again demonstrates nearly complete pentecostalism of flow to the distal aorta and bilateral common/external iliac arteries. Minimal filling defect suggested within the right internal iliac artery likely represents small residual thrombus, which will not be individually treated. The diagnostic catheter and bilateral sheaths were removed without difficulty. The right sheath was removed and pressure was held for 10 minutes to obtain hemostasis. Left puncture site was closed with a minx closure device and pressure held for 5 minutes to obtain them stasis. The patient tolerated the procedure well and was returned to the ICU in stable condition. A total of 21 mg of intra-arterial TPA was administered including a bolus dose of 2 mg at the time of catheter placement. EBL: < 5 mL. Complications: None. Fluoroscopy time: 12.6 minutes Conclusion: 1. Complete pentecostalism of aorto biiliac straight line flow with near-complete dissolution of distal aortic and left common iliac thrombus following overnight thrombolysis. 2. Successful recanalization with angioplasty and thrombolysis throughout the right common and external iliac arteries. 3. Successful Mynx closure device placement at the left common femoral artery puncture site. Plan: Initiate Plavix and aspirin with clinical follow-up and assessment of healing of the left small toe amputation site soft tissue ulceration. If there is no significant improvement, we'll consider further intervention of the known bilateral SFA disease. PROCEDURE INTERPRETED AT [facility] DEPARTMENT OF RADIOLOGY Final Report Signed by: Hipolito Garcia
[2016-12-01] MEDS: METOPROLOL TARTRATE 5 MG/5 ML VIAL IV SCH (05:04)
[2016-12-01] MEDS: SODIUM CHLORIDE 0.9% 1,000 ML IV SCH (05:45)
[2016-12-01] MEDS ORDERED: DEXTROSE 50% 25 GM/50 ML SYRINGE IV PRN (08:30)
[2016-12-01] MEDS: INSULIN LISPRO 100 UNIT/ML SUBCUT SCH (09:03)
[2016-12-01] MEDS: glyBURIDE 5 MG TABLET PO SCH (09:03)
[2016-12-01] MEDS: hydrALAZINE 25 MG TABLET PO SCH (09:04)
[2016-12-01] MEDS: amLODIPine 10 MG TABLET PO SCH (09:04)
[2016-12-01] MEDS: METOPROLOL TARTRATE 25 MG TABLET PO SCH (09:04)
[2016-12-01] MEDS: ASPIRIN EC 81 MG TABLET PO SCH (09:04)
[2016-12-01] MEDS: CLOPIDOGREL 75 MG TABLET PO SCH (09:05)
[2016-12-01] MEDS: LISINOPRIL 20 MG TABLET PO SCH (09:05)
[2016-12-01] MEDS: PANTOPRAZOLE 40 MG TABLET PO SCH (09:05)
[2016-12-01] MEDS: SODIUM CHLORIDE 0.45% 1,000 ML IV SCH (09:12)
[2016-12-01] MEDS: hydrALAZINE 20 MG/1 ML VIAL IV SCH (09:13)
--- NOTE | 2016-12-01 09:13 | Discharge Summary ---
Hospital Course - Hospital Course Hospital Course: Tamiko Desai a 41-year-old woman with extensive vascular occlusive disease associated with diabetes hypertension and heavy cigarette usage. She had a nonhealing amputation of her left fifth toe with evidence of aortoiliac and distal occlusive disease and CT angiogram indicated a right iliac occlusion disease left common iliac and bilateral superficial femoral and proximal popliteal occlusions but with fairly good runoff distally she was admitted at this time for arteriography and attempted revascularization of the aortoiliac systems was found to have progressed from the CT angiogram done in September with total occlusion of the left and right iliacs in the distal aorta we were able to successfully perform thrombolyzes and angioplasty and open the distal aorta and both iliac arteries improving flow to the profunda and superior superficial femoral. At this point she is getting along well although we had difficulties controlling her blood pressure and with nausea at the completion of her thrombolyzes and angioplasty yesterday she therefore was kept in ICU and continue with IV fluids and control of the nausea this is now been obtained her blood pressures under better control blood sugars are running mildly elevated just over 200-250 she is routinely followed by Dr. Donaldson and will continue to do so at home. I will discharge her today and plan to follow her in the office in approximately 10 days if we see continued ischemic problems with the left fifth toe then we will bring her back for femoral-popliteal bypassing or possible attention attempted endovascular revascularization. She will use the NicoDerm patches to try to wean and stay off the cigarettes we will add aspirin and Plavix to her regimen and we should be able to obtain limb salvage for her. Discharge Plan - Discharge Medications New Albuterol Neb [Proventil Neb] 2.5 mg RESP TX RT Q1H PRN PRN Reason: Shortness Of Breath/Wheezing amLODIPine [Norvasc] 10 mg PO DAILY tablet Aspirin EC Tab 81 mg PO DAILY tablet Clopidogrel [Plavix] 75 mg PO DAILY #30 tablet glyBURIDE [Diabeta] 10 mg PO BID W/MEALS tablet Lisinopril [Prinivil] 20 mg PO DAILY tablet Metoprolol Tartrate Tab [Lopressor Tab] 25 mg PO BID tablet Nicotine 21 mg/24 Hr Patch [Nicoderm CQ 21 mg/24 hr Patch] 1 patch TRANSDERM DAILY #30 patch hydrALAZINE TAB [Apresoline Tab] 25 mg PO TID tablet Continue Atorvastatin [Lipitor] 20 mg PO BEDTIME #30 tablet Furosemide Tab [Lasix Tab] 20 mg PO DAILY #30 tablet hydrALAZINE TAB [Apresoline Tab] 50 mg PO TID #90 tablet glyBURIDE [Diabeta] 5 mg PO BID W/MEALS #60 tablet Lisinopril [Prinivil] 40 mg PO DAILY #30 tablet Metoprolol Tartrate Tab [Lopressor Tab] 50 mg PO BID Nicotine 21 mg/24 Hr Patch [Nicoderm CQ 21 mg/24 hr Patch] 1 patch TRANSDERM DAILY #30 patch No Action Aspirin Tab 325 mg PO DAILY #30 tablet Clindamycin Cap [Cleocin Cap] 300 mg PO Q8HR #30 capsule amLODIPine [Norvasc] 10 mg PO BEDTIME - Follow Up or Referral Follow Up: Kristopher Gibson MD [Physician] - 12/11/16 Todd Espinoza MD [Physician] - 2 Weeks - Forms/Instructions Exam - Constitutional Vitals: Period Temp Pulse Resp BP Sys/Chavarria Pulse Ox Last 24 Hr 97.5 F-98.8 F 73-110 11-24 148-197/71-118 92-100 Discharge Results Procedures and tests throughout hospitalization: Pending Orders 11/29/16 13:06 MRSA Surveillence, Inf Control Routine Labs on day of discharge: Labs from last 24 hours 12/01/16 11/30/16 11/30/16 00:03 19:57 16:08 Fibrinogen Circ Anticoag PTT POC Glucose 242 H 254 H 168 H 11/30/16 11/30/16 11/30/16 12:25 11:36 08:55 Fibrinogen 381 Circ Anticoag PTT 27.4 D POC Glucose 127 H 140 H DS: Provider Date of admission: 11/29/16 12:18 Primary care physician: . No PCP Attending physician on admission: Kristopher Gibson MD Consults: 11/29/16 12:22 Consult to Physician [CONS] Routine Comment: help with diabetes and hypertension Consulting Provider: Todd Espinoza Consulting Provider Notified: Yes Consult to Specialist Group: Hospitalist Person Notified: kiki Date Notified: 11/29/16 Time Notified: 14:00 11/29/16 13:53 Consult to Pastoral Services [CONS] Routine Comment: Pastoral Screen: Request Jewelry Cutter Visit 11/29/16 14:51 Consult to [facility], Educator [CONS] Routine Reason for [place] Guide: Re-education Diabetes Education Discharging clinician: Kristopher Gibson MD
--- NOTE | 2016-12-01 09:23 | Family Practice Progress Note ---
Family Practice - PN: Subj Interval history: Patient seen and examined in the ICU. , is s/p successful thrombolysis, on Plavix and aspirin Patient had one episode of vomiting yesterday afternoon,was controlled with zofran, this morning had breakfast was able to keep it down. No fever, chest pain, shortness of breath. No headaches, dizziness. Pain is well controlled, on Dilaudid,and [place] when necessary Patient awaiting discharge possible today Exam (Progress Note) - Constitutional Vitals: Period Temp Pulse Resp BP Sys/Chavarria Pulse Ox Last 24 Hr 97.5 F-98.8 F 73-110 11-24 148-197/71-118 92-100 Exam: General Examination: Patient examined ICU GENERAL APPEARANCE: alert and oriented, pleasant, in no acute distress, sitting at the side of the bed. HEENT: normal. EYES: extraocular movement intact (EOMI), conjunctiva clear, normal. NECK/THYROID: , no thyromegaly. HEART: regular rate and rhythm, no murmurs, rubs, gallops. LUNGS: clear to auscultation bilaterally, no wheezes, rales, rhonchi. ABDOMEN: soft, nontender, nondistended, no organomegaly , bowel sounds present. EXTREMITIES: no edema. Has irregular unhealed wound x2 , approx 0.5 to 1.5cm, at the stump of left small toe, NEUROLOGIC: alert and oriented, cranial nerves 2-12 grossly intact, strength 5 / 5, Rt UE, 4-/5 left UE, Results - Labs CBC & BMP: 11/30/16 04:55 11/30/16 04:55 Lab Results: I have reviewed the past 24 hour labs Assessment and Plan (1) Severe peripheral arterial disease Problem details: bilateral SFA occlusions and right SHELDON occlusion with left SHELDON moderate stenosis Status: Acute Assessment and plan: s/p angioplasty successful thrombolysis , on aspirin and Plavix, continue management as per vascular surgeon, , Ambulation , has return appointment with vascular surgeon. 2. Diabetes, uncontrolled: Started back on glipizide, needs further adjustment of medications as outpatient. 3. Hypertension, improving: Restart all home medication at the time of discharge 4. 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 smoking cessation, nicotine patch. Follow-up in a week at my clinic, [address] Daily (2) Diabetes Status: Chronic Qualifiers: Diabetes mellitus type: type 2 Diabetes mellitus complication detail: with unspecified neuropathy Diabetes mellitus roasterman insulin use: without roasterman use (3) Hypertension Status: Chronic Qualifiers: Hypertension type: essential hypertension Qualified Code(s): I10 - Essential (primary) hypertension (4) Cigarette nicotine dependence, uncomplicated Status: Chronic (5) History of CVA (cerebrovascular accident) Status: Chronic (6) Dyslipidemia Status: Chronic (7) Non compliance w medication regimen Status: Chronic Quality Measures - VTE Contraindication to Pharmacological VTE Prophylaxis: High Risk of Bleeding Specialty Discharge - Follow Up or Referrals Follow up with: Todd Espinoza MD [Physician] - 1 Week (One week with Dr. Espinoza - Dec 08 at 9:30am Two weeks with Dr. Gibson - Dec 12 at 2:30pm ) Kristopher Gibson MD [Physician] - 12/11/16
[2016-12-01 12:00] VITALS: BP 160/75
== END 2016-12-01 11:57 | disposition home or self-care (01) | DRG 181 ==
LOC: N.RAD 06:24 → N.SDSINP 06:24 → N.ICU 12:55
PROVIDERS: ADMIT Surgery; ATTEND Surgery
PROC: IRORORE (2016-11-30 07:00)

== ENCOUNTER 2016-12-10 10:06 | Inpatient (IN) ==
[2016-12-10] MEDS ORDERED: HYDROmorphone 2 MG/1 ML VIAL IV STA ×2 (10:31→13:06)
[2016-12-10] MEDS ORDERED: ONDANSETRON 4 MG/2 ML VIAL IV STA (10:31)
[2016-12-10] MEDS ORDERED: ONDANSETRON 4 MG/2 ML VIAL ONE (10:47)
[2016-12-10] MEDS ORDERED: HYDROmorphone 2 MG/1 ML VIAL ONE (10:48)
[2016-12-10 10:54] LABS: Basophils % 0.4 % (0.0-0.8); Hematocrit 34.6 VOL% (35.7-47.0); Hemoglobin 12.1 GM/DL (12.0-16.0); Immature Granulocytes % 0.4 %; Immature Granulocytes Absolute 0.03 #; Lymphocytes # 1.9 10*3/uL (1.4-4.0); Lymphocytes % 25.1 % (21.3-54.2); Mean Corpuscular Hemoglobin 32 PG (27-34); Mean Corpuscular Volume 90.1 FL (87-102); Mean Platelet Volume 10.3 FL (9.6-12.0); Monocytes # 0.6 10*3/uL (0.11-0.8); Monocytes % 8.6 % (1.7-12.7); Neutrophils # 4.9 10*3/uL (1.4-7.4); Neutrophils % 65.5 % (38.7-73.9); Platelet Count 339 T/CUMM (130-400); Red Blood Count 3.84 MC/CUMM (3.8-5.5); White Blood Count 7.5 T/CUMM (4-12)
[2016-12-10 11:16] LABS: Calcium 10.2 MG/DL (8.5-10.1); Magnesium 2.1 MG/DL (1.8-2.4); Osmolality,Calculated 277.2 MOS/KG (273-304); Potassium 3.7 MMOL/L (3.5-5.1)
--- NOTE | 2016-12-10 11:25 | XRay Report ---
History: Severe abdominal pain Date: 12/10/2016 Study: Chest x-ray AP portable Comparison exam: September 04, 2016 The cardiomediastinal silhouette and pulmonary vasculature are unremarkable. The lungs and pleural spaces are clear. The osseous structures are unremarkable. Impression: No acute cardiopulmonary process. No significant interval change PROCEDURE INTERPRETED AT [facility] DEPARTMENT OF RADIOLOGY Final Report Signed by: Dr. Mariella Blank
--- NOTE | 2016-12-10 13:23 | General Surgery Consult Note ---
Assessment and Plan (1) Abdominal pain Status: Acute Assessment and plan: Patient with multiple problems including abdominal pain of unknown etiology, aortoiliac and peripheral vascular disease, mural ventricular thrombus. Plan: I have discussed this patient with Dr. Daily. There does not appear to be any significant change since Sunday. She is unable to keep her medications down and I am not sure she is actually getting any anticoagulation. She was in the process of being evaluated by Dr. [place]. Recommend admission by hospitalist service and resuming her previous anticoagulation regimen before she was discharged. Dr. Daily's plan was to continue the workup as an inpatient to see if it would be safe to proceed with operative intervention. Recommend reconsulting oncology. Current Visit: No History of Present Illness Chief complaint: Abdominal pain and left leg pain History of present illness: Ms. Desai is a 41 year old female who was discharged on Sunday presents back to the emergency room. She has had nausea vomiting and left leg pain. She says she has some abdominal pain. She says she is unable to keep any of her medication down. She was discharged home on Lovenox but it is unsure if she is even been able to administer that. Her previous hospital stay was reviewed. She had undergone angioplasty of the aortoiliac system. CT scan was done yesterday when she came back to the emergency room showing no significant changes but it is noted that the left common and external iliac are occluded with reconstitution at the level of the common femoral artery. Home Medications Medication Instructions Recorded Confirmed Type Atorvastatin [Lipitor] 20 mg PO BEDTIME #30 tablet 07/29/15 12/09/16 Rx Lisinopril [Prinivil] 40 mg PO DAILY #30 tablet 07/29/15 12/09/16 Rx glyBURIDE [Diabeta] 5 mg PO BID W/MEALS #60 tablet 07/29/15 12/09/16 Rx Metoprolol Tartrate Tab [Lopressor 50 mg PO BID 09/04/16 12/09/16 History Tab] Clopidogrel [Plavix] 75 mg PO DAILY #30 tablet 12/01/16 12/09/16 Rx Nicotine 21 mg/24 Hr Patch 1 patch TRANSDERM DAILY #30 patch 12/01/16 12/09/16 Rx [Nicoderm CQ 21 mg/24 hr Patch] amLODIPine [Norvasc] 10 mg PO DAILY tablet 12/01/16 12/09/16 Rx Aspirin EC Tab 81 mg PO DAILY #30 tablet 12/08/16 12/09/16 Rx Carvedilol [Coreg] 25 mg PO BID #60 tablet 12/08/16 12/09/16 Rx Enoxaparin [Lovenox] 80 mg SUBCUT Q12H 12/09/16 12/09/16 History HYDROcodone/ACETAMIN 5-325 [[place] 1 tablet PO Q6H #20 tablet 12/09/16 Rx 5-325] Allergies Allergy/AdvReac Type Severity Reaction Status Date / Time No Known Allergies Allergy Unverified 12/04/16 10:16 Medical,Surgical,& Family Hx - Medical History Cardio: History of: Hypertension, PVD (VASCULAR STENTS 2017 TO LEFT LEG) Neurology: History of: Cerebrovascular Accident (2016.), Peripheral Neuropathy No history of: Seizures HEENT: History of: Eye Problem (GLASSES) Endocrine: History of: Diabetes Mellitus (NIDDM), Dyslipidemia Respiratory: No history of: Respiratory Problems (FLU VAC- NO; PNEU VAC-NO.) Gastrointestinal: History of: GERD, Pancreatitis Musculoskeletal: History of: Amputation (5TH LEFT TOE), Back/Neck Problems, Musculoskeletal Problems (ARTHRITIS.) Other: History of: MRSA (LEFT TOE), Miscellaneous Medical Problems (DVT) - Surgical History Cardiac Surgeries: Patient Denies: Femoral-Popliteal Bypass Graft, Cardiac Catheterization, Cardiac Surgery, Carotid Endarterectomy, Internal Defibrillator, Vascular Access Devices Thoracic Surgeries: Patient denies;: Organ Transplant, Lobectomy HEENT Surgeries: Patient denies: Carotid Endarterectomy Abdominal Surgeries: Surgical HX of: Cholecystectomy, Colonoscopy Patient denies: Splenectomy Reproductive Surgeries: Patient denies;: Gynecologic Surgery - Family History Family History: Reports;: Family Diabetes, Family Heart Disease, Family Hypertension - Social History Smoking Status: Current every day smoker Frequency of Alcohol Use: None Type of Drug Use: None Exam - Constitutional Vitals: Period Temp Pulse Resp BP Sys/Chavarria Pulse Ox Last 24 Hr 98.3 F 107 20 193/115 - Head Head exam: Present: normocephalic - Neck Neck exam: Present: normal inspection - Respiratory Respiratory exam: Present: clear to auscultation bilaterally - Cardiovascular Cardiovascular exam: Present: RRR (Hypertensive) - GI/Abdominal GI/Abdominal exam: Present: soft (Nondistended. Complains of pain but no tenderness is really appreciated. She does not appear toxic or in any extreme pain.) - Extremities Exam Extremities exam: Present: other (Left foot is warm. There is a palpable pulse in the left femoral artery. There is no signals in the lower extremities and this is apparently unchanged. Left leg and foot are warm. There is no tenderness to palpation along the left lower extremity.) - Skin Skin exam: Present: normal color Results - Labs CBC & BMP: 12/10/16 10:39 12/10/16 10:39 Lab Results: I have reviewed the past 24 hour labs
--- NOTE | 2016-12-10 13:35 | Emergency Department Note ---
Latisha Conner Brittany, am scribing for, and in the presence of, Michael Ames MD 10:39. Kwaku Conner Doug C, MD, personally performed the services described in this documentation, ascribed by Elizabeth Good in my presence, and it is both accurate and complete . Arrival - Arrival Chief Complaint: Abdominal / Flank Pain Stated Complaint: abd pain ED Nursing Triage Note: C/O 4-5 DAY HX OF LOWER ABD [id number] IN ER YESTERDAY FOR SAME Mode of Arrival: Stretcher Limitations: No Limitations Source: Patient Time Seen by Provider: 12/10/16 10:11 - History of Present Illness HPI Narrative: Patient 41-year-old black female presents emergency room complaining of increasing abdominal pain. Patient was seen here yesterday morning with the same complaint and got better with analgesia. Patient has a history of peripheral vascular disease and has had previous hospitalization to open her blood flow to her left lower extremity. Patient states she is having pain in her left lower extremity now as well. Patient was sent home on Lovenox and Plavix. Apparently she has not been taking her Lovenox injections as prescribed. She has had some nausea but not vomiting this morning. She does not have any fever or chills. She points to her lower abdomen as the location of her discomfort. Onset (ago): day(s) (Started 4-5 days ago) Consistency: constant Severity: moderate, severe, similar to previous episodes Allergies/Adverse Reactions: Allergies Allergy/AdvReac Type Severity Reaction Status Date / Time No Known Allergies Allergy Unverified 12/04/16 10:16 Home Medications: Home Medications Medication Instructions Recorded Confirmed Type Atorvastatin [Lipitor] 20 mg PO BEDTIME #30 tablet 07/29/15 12/09/16 Rx Lisinopril [Prinivil] 40 mg PO DAILY #30 tablet 07/29/15 12/09/16 Rx glyBURIDE [Diabeta] 5 mg PO BID W/MEALS #60 tablet 07/29/15 12/09/16 Rx Metoprolol Tartrate Tab [Lopressor 50 mg PO BID 09/04/16 12/09/16 History Tab] Clopidogrel [Plavix] 75 mg PO DAILY #30 tablet 12/01/16 12/09/16 Rx Nicotine 21 mg/24 Hr Patch 1 patch TRANSDERM DAILY #30 patch 12/01/16 12/09/16 Rx [Nicoderm CQ 21 mg/24 hr Patch] amLODIPine [Norvasc] 10 mg PO DAILY tablet 12/01/16 12/09/16 Rx Aspirin EC Tab 81 mg PO DAILY #30 tablet 12/08/16 12/09/16 Rx Carvedilol [Coreg] 25 mg PO BID #60 tablet 12/08/16 12/09/16 Rx Enoxaparin [Lovenox] 80 mg SUBCUT Q12H 12/09/16 12/09/16 History HYDROcodone/ACETAMIN 5-325 [[place] 1 tablet PO Q6H #20 tablet 12/09/16 Rx 5-325] Review of System - Review of System 12 point system: reviewed and no additional remarkable complaints except as stated - Review of System Gastrointestinal: Present: abdominal pain, nausea, vomiting Medical,Surgical,& Family Hx - Medical History Cardio: History of: Hypertension, PVD (VASCULAR STENTS 2017 TO LEFT LEG) Neurology: History of: Cerebrovascular Accident (2016.), Peripheral Neuropathy No history of: Seizures HEENT: History of: Eye Problem (GLASSES) Endocrine: History of: Diabetes Mellitus (NIDDM), Dyslipidemia Respiratory: No history of: Respiratory Problems (FLU VAC- NO; PNEU VAC-NO.) Gastrointestinal: History of: GERD, Pancreatitis Musculoskeletal: History of: Amputation (5TH LEFT TOE), Back/Neck Problems, Musculoskeletal Problems (ARTHRITIS.) Other: History of: MRSA (LEFT TOE), Miscellaneous Medical Problems (DVT) - Surgical History Cardiac Surgeries: Patient Denies: Femoral-Popliteal Bypass Graft, Cardiac Catheterization, Cardiac Surgery, Carotid Endarterectomy, Internal Defibrillator, Vascular Access Devices Thoracic Surgeries: Patient denies;: Organ Transplant, Lobectomy HEENT Surgeries: Patient denies: Carotid Endarterectomy Abdominal Surgeries: Surgical HX of: Cholecystectomy, Colonoscopy Patient denies: Splenectomy Reproductive Surgeries: Patient denies;: Gynecologic Surgery - Family History Family History: Reports;: Family Diabetes, Family Heart Disease, Family Hypertension - Social History Smoking Status: Current every day smoker Exam Vital Signs: Vital Signs Temperature 98.3 F 12/10/16 10:08 Pulse Rate 107 H 12/10/16 10:08 Respiratory Rate 20 12/10/16 10:08 Blood Pressure 193/115 12/10/16 10:08 - General General appearance: alert, other (Appears to be uncomfortable) - Head Head exam: Present: atraumatic, normocephalic, normal inspection - Eye Eye exam: Present: normal appearance, PERRL, EOMI. Absent: scleral icterus, conjunctival injection, nystagmus, miosis, mydriasis, periorbital swelling, periorbital tenderness - ENT ENT exam: Present: normal exam, normal oropharynx, mucous membranes moist - Neck Neck exam: Present: normal inspection, full ROM, trachea midline. Absent: tenderness, meningismus, lymphadenopathy, thyromegaly - Chest Chest inspection: Present: normal inspection, symmetric chest wall rise. Absent : tenderness, rash, abscess - Respiratory Respiratory exam: Present: normal lung sounds bilaterally. Absent: prolonged expiratory phase, rales, respiratory distress, rhonchi, stridor, wheezes - Cardiovascular Cardiovascular exam: Present: regular rate, normal rhythm, normal heart sounds. Absent: murmur, rubs, gallop, clicks, JVD - Abdominal Exam Abdominal exam: Present: soft, tenderness (Diffuse Tenderness), normal bowel sounds. Absent: distention, guarding, rebound, rigidity - Rectal Exam Rectal exam: Present: deferred - Extremities Exam Extremities exam: Present: normal inspection, full ROM, normal capillary refill. Absent: tenderness, pedal edema, joint swelling, calf tenderness - Back Exam Back exam: Present: normal inspection, full ROM. Absent: tenderness, muscle spasm, rashes - Neurological Exam Neurological exam: Present: alert, oriented X3, CN II-XII intact. Absent: motor sensory deficit - Psychiatric Psychiatric exam: Present: normal affect, normal mood. Absent: depressed, agitated, anxious, flat affect, manic - Skin Skin exam: Present: warm, dry, intact, normal color. Absent: rash, cyanosis, diaphoresis, erythema, pallor, mottled Course Course Narrative: Patient's clinical presentation, laboratory and radiographic findings were discussed with Dr. Raad Manzo who will see the patient in the emergency room. He reviewed patient's CT findings from yesterday and discussed her care with Dr. Gibson. He requested that patient be admitted by the hospitalist and he will see her in consultation. I then discussed her care with Abner who is covering the hospitalist service. He will arrange patient be seen here in the emergency room and evaluated for admission Results - Labs CBC & BMP: 12/10/16 10:39 12/10/16 10:39 Lab Results: I have reviewed the patients labs Labs: Laboratory Tests 12/10/16 12/10/16 10:39 10:39 WBC 7.5 RBC 3.84 Hgb 12.1 Hct 34.6 L MCV 90.1 MCH 32 MCHC 35.0 RDW 13.0 Plt Count 339 MPV 10.3 Neut % (Auto) 65.5 Lymph % (Auto) 25.1 [place] % (Auto) 8.6 Eos % (Auto) 0.0 Baso % (Auto) 0.4 Neut # (Auto) 4.9 Lymph # (Auto) 1.9 [place] # (Auto) 0.6 Eos # (Auto) 0.0 Baso # (Auto) 0.0 Immature Gran % 0.4 Nucleated RBC % 0.0 Immature Gran # 0.03 Nucleated RBCs # 0.00 Immature Plt Fraction 0.0 Sodium 134 L Potassium 3.7 Chloride 95 L Carbon Dioxide 30 Anion Gap 12.7 BUN 12 Creatinine 1.20 H GFR Calculation 0 BUN/Creatinine Ratio 10.00 Glucose 274 H Calculated Osmolality 277.2 Calcium 10.2 H Magnesium 2.1 - Diagnostic Findings Procedure: Chest x-ray: report reviewed by me (Nothing acute. ) Disposition Clinical Impression: Peripheral vascular disease Case discussed with: patient Disposition: Still a Patient Condition: Guarded Time of Disposition: 13:34
[2016-12-10] MEDS ORDERED: ACETAMINOPHEN 325 MG TABLET PO PRN (16:00)
[2016-12-10] MEDS ORDERED: ENOXAPARIN 40 MG/0.4 ML SYRINGE SUBCUT SCH (16:00)
--- NOTE | 2016-12-10 16:36 | Hospitalist History & Physical ---
Assessment and Plan - Time spent with patient Time spent with patient: Greater than 30 minutes (1) Abdominal pain Status: Resolved Assessment and plan: Diffuse abdominal pain with nausea and vomiting. CT abdomen on yesterday showed a small amount of nonoccluding thrombus in the superior mesenteric artery at least 4 to 5 cm distal to its origin. IV fluids, antiemetics. This may be related to occlusive disease of the aortoiliac vessels. Consult vascular surgery for assistance. Current Visit: No Qualifiers: Abdominal location: right lower quadrant Qualified Code(s): R10.31 - Right lower quadrant pain (2) Diabetes Status: Chronic Assessment and plan: Accu-cheks ACHS. Continue home medications. SSI as needed. Current Visit: No Qualifiers: Diabetes mellitus type: type 2 Diabetes mellitus complication detail: with unspecified neuropathy Diabetes mellitus prison insulin use: without terminal worker use (3) Ischemic ulcer of toe of left foot Status: Chronic Assessment and plan: Consult wound care as needed. Current Visit: No Qualifiers: Non-pressure ulcer stage: limited to breakdown of skin Qualified Code(s): L97.521 - Non-pressure chronic ulcer of other part of left foot limited to breakdown of skin (4) Severe peripheral arterial disease Problem details: bilateral SFA occlusions and right SHELDON occlusion with left SHELDON moderate stenosis Status: Chronic Assessment and plan: Consult vascular surgery Current Visit: No (5) Hypertension Status: Chronic Assessment and plan: Continue home medications Current Visit: No Qualifiers: Hypertension type: essential hypertension Qualified Code(s): I10 - Essential (primary) hypertension (6) Non compliance w medication regimen Status: Chronic Current Visit: No History of Present Illness Chief complaint: abdominal pain History of present illness: Ms. Desai is a 41 year old female with past medical history significant for extensive vascular occlusive disease associated with diabetes, hypertension and heavy tobacco usage presents to the hospital today with complaints of severe abdominal pain with nausea and vomiting and left leg pain. The patient was just discharged on Sunday after a 5 day stay with similar complaints. During her last visit, she was found to have reocclusion of the left iliac artery and nonocclusive disease on the right. CT abdomen performed yesterday shows a small amount of nonoccluding thrombus in the superior mesenteric artery at least 4 to 5 cm distal to its origin. On exam today, she is in moderate distress with diffuse abdominal tenderness and left leg pain. Bowel sounds are present in all quadrants. She has been nauseas with continuous emesis. This subsided after 4 mg IV Zofran. She denies headache, blurry vision, chest pain, syncope, hematemesis, BRBPR. Labs are significant for sodium 134, chloride 95, creatinine 1.20, serum glucose 274, calcium 10.2. Case has been discussed with Dr. Bañuelos and the patient will be admitted to the hospitalist service for further evaluation and treatment. She is a full code. Home medications have been reviewed and reconciled. Home Medications Medication Instructions Recorded Confirmed Type Atorvastatin [Lipitor] 20 mg PO BEDTIME #30 tablet 07/29/15 12/10/16 Rx Lisinopril [Prinivil] 40 mg PO DAILY #30 tablet 07/29/15 12/10/16 Rx glyBURIDE [Diabeta] 5 mg PO BID W/MEALS #60 tablet 07/29/15 12/10/16 Rx Metoprolol Tartrate Tab [Lopressor 50 mg PO BID 09/04/16 12/10/16 History Tab] Clopidogrel [Plavix] 75 mg PO DAILY #30 tablet 12/01/16 12/10/16 Rx Nicotine 21 mg/24 Hr Patch 1 patch TRANSDERM DAILY #30 patch 12/01/16 12/10/16 Rx [Nicoderm CQ 21 mg/24 hr Patch] amLODIPine [Norvasc] 10 mg PO DAILY tablet 12/01/16 12/10/16 Rx Aspirin EC Tab 81 mg PO DAILY #30 tablet 12/08/16 12/10/16 Rx Carvedilol [Coreg] 25 mg PO BID #60 tablet 12/08/16 12/10/16 Rx Enoxaparin [Lovenox] 80 mg SUBCUT Q12H 12/09/16 12/10/16 History HYDROcodone/ACETAMIN 5-325 [[place] 1 tablet PO Q6H #20 tablet 12/09/16 12/10/16 Rx 5-325] Allergies Allergy/AdvReac Type Severity Reaction Status Date / Time No Known Allergies Allergy Unverified 12/04/16 10:16 Medical,Surgical,& Family Hx - Medical History Cardio: History of: Hypertension, PVD (VASCULAR STENTS 2017 TO LEFT LEG) Neurology: History of: Cerebrovascular Accident (2016.), Peripheral Neuropathy No history of: Seizures HEENT: History of: Eye Problem (GLASSES) Endocrine: History of: Diabetes Mellitus (NIDDM), Dyslipidemia Respiratory: No history of: Respiratory Problems (FLU VAC- NO; PNEU VAC-NO.) Gastrointestinal: History of: GERD, Pancreatitis Musculoskeletal: History of: Amputation (5TH LEFT TOE), Back/Neck Problems, Musculoskeletal Problems (ARTHRITIS.) Other: History of: MRSA (LEFT TOE), Miscellaneous Medical Problems (DVT) - Surgical History Cardiac Surgeries: Patient Denies: Femoral-Popliteal Bypass Graft, Cardiac Catheterization, Cardiac Surgery, Carotid Endarterectomy, Internal Defibrillator, Vascular Access Devices Thoracic Surgeries: Patient denies;: Organ Transplant, Lobectomy HEENT Surgeries: Patient denies: Carotid Endarterectomy Abdominal Surgeries: Surgical HX of: Cholecystectomy, Colonoscopy Patient denies: Splenectomy Reproductive Surgeries: Patient denies;: Gynecologic Surgery - Family History Family History: Reports;: Family Diabetes, Family Heart Disease, Family Hypertension - Social History Smoking Status: Current every day smoker Frequency of Alcohol Use: None Type of Drug Use: None Marital Status: Single Lives With:: Alone Functional capacity: independent ambulation 12 point system: reviewed and no additional remarkable complaints except as stated Exam - Constitutional Vitals: Period Temp Pulse Resp BP Sys/Chavarria Pulse Ox Last 24 Hr 98.3 F 87-107 16-22 145-229/90-120 97-100 General appearance: mild distress, over weight - Head Head exam: Present: normal inspection, normocephalic, atraumatic - Eye Eye exam: Present: EOMI Pupils: Present: ANTIONETTE - ENT ENT exam: Present: normal exam - Neck Neck exam: Present: normal inspection. Absent: lymphadenopathy, tenderness - Respiratory Respiratory exam: Present: clear to auscultation bilaterally. Absent: rales, rhonchi, wheezes - Cardiovascular Cardiovascular exam: Present: regular rate and rhythm - GI/Abdominal GI/Abdominal exam: Present: normal bowel sounds, tenderness, rebound. Absent: mass, Carr's sign, organomegaly - Extremities Exam Extremities exam: Present: other (left leg tenderness and pain) - Neurological Exam Neurological exam: Present: alert, oriented X3 - Psychiatric Psychiatric exam: Present: anxious - Skin Skin exam: Present: dry, erythema, intact Results - Labs CBC & BMP: 12/10/16 10:39 12/10/16 10:39 Lab Results: I have reviewed the past 24 hour labs
[2016-12-10] MEDS: SODIUM CHLORIDE 0.9% 1,000 ML IV SCH (17:31)
[2016-12-10] MEDS: ENOXAPARIN 80 MG/0.8 ML SYRINGE SUBCUT SCH (17:32)
[2016-12-10] MEDS: glyBURIDE 5 MG TABLET PO SCH (18:21)
[2016-12-10] MEDS: HYDROmorphone 2 MG/1 ML VIAL IV PRN ×2 (18:41→22:47)
[2016-12-10] MEDS: CARVEDILOL 25 MG TABLET PO SCH (20:49)
[2016-12-10] MEDS: ATORVASTATIN 20 MG TABLET PO SCH (20:49)
[2016-12-10] MEDS: METOPROLOL TARTRATE 50 MG TABLET PO SCH (20:49)
[2016-12-11] MEDS: SODIUM CHLORIDE 0.9% 1,000 ML IV SCH ×4 (01:42→20:51)
[2016-12-11] MEDS: ENOXAPARIN 80 MG/0.8 ML SYRINGE SUBCUT SCH ×2 (05:42→17:41)
[2016-12-11 06:01] LABS: Basophils % 0.6 % (0.0-0.8); Eosinophils # 0.1 10*3/uL (0.0-0.87); Hematocrit 32.7 VOL% (35.7-47.0); Hemoglobin 11.4 GM/DL (12.0-16.0); Immature Granulocytes % 0.3 %; Immature Granulocytes Absolute 0.02 #; Lymphocytes # 3.3 10*3/uL (1.4-4.0); Lymphocytes % 46.3 % (21.3-54.2); Mean Corpuscular HGB Conc 34.9 GM/DL (32-36); Mean Corpuscular Hemoglobin 32 PG (27-34); Mean Corpuscular Volume 91.9 FL (87-102); Mean Platelet Volume 10.7 FL (9.6-12.0); Monocytes # 1.1 10*3/uL (0.11-0.8); NRBC # 0.02 10*3/uL; Neutrophils # 2.6 10*3/uL (1.4-7.4); Neutrophils % 36.8 % (38.7-73.9); Platelet Count 302 T/CUMM (130-400); Red Blood Count 3.56 MC/CUMM (3.8-5.5); Red Cell Distribution Width 13.2 % (9.3-17.3); White Blood Count 7.1 T/CUMM (4-12)
[2016-12-11 06:22] LABS: Calcium 8.6 MG/DL (8.5-10.1); Osmolality,Calculated 279.4 MOS/KG (273-304); Potassium 3.6 MMOL/L (3.5-5.1)
[2016-12-11 07:21] LABS: Lymphocytes 55 % (20-55); Segmented Neutrophils 39 % (50-85); Total Cells Counted 100
[2016-12-11 07:22] LABS: Hypochromasia Slight; Microcytosis Slight; Platelet Estimate Adequate
--- NOTE | 2016-12-11 07:41 | Oncology Progress Note ---
Oncology Subjective PN Interval history: I ordered hypercoagulability studies on December 05 and a have returned. Factor V Leiden is negative and also mutation prothrombin [id number] is negative. Lupus anticoagulant is the only study pending. The previously reported antiphospholipid antibodies are negative. Unless the lupus anticoagulant returns is abnormal, the evaluation is completed and it appears that the patient has severe arterial plaque formation and arteriosclerotic cardiovascular disease but there is no proven evidence for hypercoagulable conditions. Protein C and protein S are possibilities but this test will not be valid in the face of anticoagulation or in the face of continued development of blood clots. I will sign off. The only other problem is whether or not this patient has been or will be compliant in taking her medications. Thank you. Exam - Constitutional Vitals: Period Temp Pulse Resp BP Sys/Chavarria Pulse Ox Last 24 Hr 97.3 F-99.7 F 68-107 16-22 123-229/79-120 95-100 Results - Labs CBC & BMP: 12/11/16 05:13 12/11/16 05:13
[2016-12-11] MEDS: HYDROmorphone 2 MG/1 ML VIAL IV PRN ×3 (08:32→21:05)
[2016-12-11] MEDS: CLOPIDOGREL 75 MG TABLET PO SCH (09:06)
[2016-12-11] MEDS: LISINOPRIL 20 MG TABLET PO SCH (09:06)
[2016-12-11] MEDS: amLODIPine 10 MG TABLET PO SCH (09:06)
[2016-12-11] MEDS: PANTOPRAZOLE 40 MG TABLET PO SCH (09:08)
[2016-12-11] MEDS: ASPIRIN EC 81 MG TABLET PO SCH (09:08)
[2016-12-11] MEDS: CARVEDILOL 25 MG TABLET PO SCH ×2 (09:08→20:52)
[2016-12-11] MEDS: glyBURIDE 5 MG TABLET PO SCH ×2 (09:08→17:40)
[2016-12-11] MEDS: METOPROLOL TARTRATE 50 MG TABLET PO SCH ×2 (09:08→20:52)
[2016-12-11] MEDS: NICOTINE 21 MG/24 HR PATCH TRANSDERM SCH (10:38)
--- NOTE | 2016-12-11 12:21 | Vascular Surgery Consult Note ---
History of Present Illness Chief complaint: abdominal pain,vomitin, hypertension History of present illness: Ms. Desai is a 41 year old female Ms. Desai was readmitted after going home [place] with a return of her abdominal pain and vomiting. Also her hypertension which may be a consequence of not being able to take her p.o. meds. CT was repeated and is not show any significant changes and certainly nothing to indicate any acute mesenteric ischemia. I do not believe that the iliac occlusive disease would be related to her abdominal pain and vomiting. Notably her left leg while uncomfortable does show healing of the previously amputated left fifth toe and the foot is warm and adequately perfused. My thoughts at this point in time is that the vascular occlusive disease is important but is not because of her ongoing issues. I would like to see those corrected before attempting aortobifemoral bypassing which I think is the best for her lower extremity perfusion. I do have questions as to whether or not gas paraparesis may be related to her current symptoms in that vein I will ask to get a gastric emptying scan and we may want to retry her with Reglan to see if that improves her nausea. Home Medications Medication Instructions Recorded Confirmed Type Atorvastatin [Lipitor] 20 mg PO BEDTIME #30 tablet 07/29/15 12/10/16 Rx Lisinopril [Prinivil] 40 mg PO DAILY #30 tablet 07/29/15 12/10/16 Rx glyBURIDE [Diabeta] 5 mg PO BID W/MEALS #60 tablet 07/29/15 12/10/16 Rx Metoprolol Tartrate Tab [Lopressor 50 mg PO BID 09/04/16 12/10/16 History Tab] Clopidogrel [Plavix] 75 mg PO DAILY #30 tablet 12/01/16 12/10/16 Rx Nicotine 21 mg/24 Hr Patch 1 patch TRANSDERM DAILY #30 patch 12/01/16 12/10/16 Rx [Nicoderm CQ 21 mg/24 hr Patch] amLODIPine [Norvasc] 10 mg PO DAILY tablet 12/01/16 12/10/16 Rx Aspirin EC Tab 81 mg PO DAILY #30 tablet 12/08/16 12/10/16 Rx Carvedilol [Coreg] 25 mg PO BID #60 tablet 12/08/16 12/10/16 Rx Enoxaparin [Lovenox] 80 mg SUBCUT Q12H 12/09/16 12/10/16 History HYDROcodone/ACETAMIN 5-325 [[place] 1 tablet PO Q6H #20 tablet 12/09/16 12/10/16 Rx 5-325] Allergies Allergy/AdvReac Type Severity Reaction Status Date / Time No Known Allergies Allergy Unverified 12/04/16 10:16 Medical,Surgical,& Family Hx - Medical History Cardio: History of: Hypertension, PVD (VASCULAR STENTS 2017 TO LEFT LEG) Neurology: History of: Cerebrovascular Accident (2016.), Peripheral Neuropathy No history of: Seizures HEENT: History of: Eye Problem (GLASSES) Endocrine: History of: Diabetes Mellitus (NIDDM), Dyslipidemia Respiratory: No history of: Respiratory Problems (FLU VAC- NO; PNEU VAC-NO.) Genitourinary: History of: Recurring Urinary Tract Infections Gastrointestinal: History of: GERD, Pancreatitis Musculoskeletal: History of: Amputation (5TH LEFT TOE), Back/Neck Problems, Musculoskeletal Problems (ARTHRITIS.) Other: History of: MRSA (LEFT TOE), Miscellaneous Medical Problems (DVT) - Surgical History Cardiac Surgeries: Patient Denies: Femoral-Popliteal Bypass Graft, Cardiac Catheterization, Cardiac Surgery, Carotid Endarterectomy, Internal Defibrillator, Vascular Access Devices Thoracic Surgeries: Patient denies;: Organ Transplant, Lobectomy HEENT Surgeries: Patient denies: Carotid Endarterectomy Abdominal Surgeries: Surgical HX of: Abdominal Surgery, Cholecystectomy, Colonoscopy Patient denies: Splenectomy Reproductive Surgeries: Patient denies;: Gynecologic Surgery - Family History Family History: Reports;: Family Cancer (uncle-colon, aunt-breast, aunt-leukemia ), Family Diabetes, Family Heart Disease, Family Hypertension - Social History Smoking Status: Current every day smoker Frequency of Alcohol Use: None Type of Drug Use: None Exam - Constitutional Vitals: Period Temp Pulse Resp BP Sys/Chavarria Pulse Ox Last 24 Hr 97.3 F-99.7 F 68-102 16-22 123-207/73-116 95-100 Results - Labs CBC & BMP: 12/11/16 05:13 12/11/16 05:13
[2016-12-11] MEDS: ONDANSETRON 4 MG/2 ML VIAL IV PRN ×2 (12:51→21:04)
--- NOTE | 2016-12-11 16:42 | Hospitalist Progress Note ---
Assessment and Plan (1) Peripheral vascular disease Status: Acute Assessment and plan: The patient will continue on Lovenox and Plavix. Hypercoagulable evaluation continues. Dr. Daily is considering options for improving the patient's peripheral circulation Current Visit: Yes (2) Abdominal pain Status: Acute Current Visit: No Hospitalist: Subjective Interval history: The patient is resting quietly in bed today. I coordinate care with Dr. Daily and with Dr. [place] concerning her leg pain. The patient's leg is warm but has claudication symptoms. The patient has nausea after eating and may have gastroparesis. The patient continues on Lovenox plus Plavix anticoagulation. Exam - Constitutional Vitals: Period Temp Pulse Resp BP Sys/Chavarria Pulse Ox Last 24 Hr 97.3 F-99.7 F 68-91 16-22 123-159/73-93 95-99 General appearance: mild distress - Respiratory Respiratory exam: Present: clear to auscultation bilaterally - Cardiovascular Cardiovascular exam: Present: regular rate and rhythm - GI/Abdominal GI/Abdominal exam: Present: hypoactive bowel sounds Results - Labs CBC & BMP: 12/11/16 05:13 12/11/16 05:13 Lab Results: I have reviewed the past 24 hour labs
[2016-12-11] MEDS: ATORVASTATIN 20 MG TABLET PO SCH (20:51)
[2016-12-12] MEDS: ONDANSETRON 4 MG/2 ML VIAL IV PRN ×2 (02:37→10:16)
[2016-12-12] MEDS: HYDROmorphone 2 MG/1 ML VIAL IV PRN (02:37)
[2016-12-12] MEDS: ENOXAPARIN 80 MG/0.8 ML SYRINGE SUBCUT SCH ×2 (04:15→16:18)
[2016-12-12 06:35] LABS: Basophils # 0.1 10*3/uL (0.0-0.2); Basophils % 0.8 % (0.0-0.8); Eosinophils # 0.1 10*3/uL (0.0-0.87); Eosinophils % 1.8 % (0.00-10.9); Hematocrit 30.9 VOL% (35.7-47.0); Hemoglobin 10.4 GM/DL (12.0-16.0); Immature Granulocytes % 0.2 %; Immature Granulocytes Absolute 0.01 #; Lymphocytes # 3.4 10*3/uL (1.4-4.0); Lymphocytes % 54.6 % (21.3-54.2); Mean Corpuscular HGB Conc 33.7 GM/DL (32-36); Mean Corpuscular Hemoglobin 31 PG (27-34); Mean Corpuscular Volume 93.4 FL (87-102); Mean Platelet Volume 10.3 FL (9.6-12.0); Monocytes # 0.8 10*3/uL (0.11-0.8); Monocytes % 12.3 % (1.7-12.7); Neutrophils # 1.9 10*3/uL (1.4-7.4); Neutrophils % 30.3 % (38.7-73.9); Platelet Count 273 T/CUMM (130-400); Red Blood Count 3.31 MC/CUMM (3.8-5.5); Red Cell Distribution Width 12.7 % (9.3-17.3); White Blood Count 6.3 T/CUMM (4-12)
[2016-12-12 07:09] LABS: Eosinophils 1 % (0-10); Lymphocytes 58 % (20-55); Segmented Neutrophils 37 % (50-85); Total Cells Counted 100
[2016-12-12 07:10] LABS: Hypochromasia 1+; Microcytosis Slight
[2016-12-12 07:11] LABS: Platelet Estimate Normal
[2016-12-12 07:13] LABS: Calcium 8.1 MG/DL (8.5-10.1); Osmolality,Calculated 275.5 MOS/KG (273-304); Potassium 3.6 MMOL/L (3.5-5.1)
[2016-12-12] MEDS: CARVEDILOL 25 MG TABLET PO SCH ×2 (10:06→20:26)
[2016-12-12] MEDS: CLOPIDOGREL 75 MG TABLET PO SCH (10:06)
[2016-12-12] MEDS: LISINOPRIL 20 MG TABLET PO SCH (10:06)
[2016-12-12] MEDS: amLODIPine 10 MG TABLET PO SCH (10:06)
[2016-12-12] MEDS: glyBURIDE 5 MG TABLET PO SCH ×2 (10:06→16:18)
[2016-12-12] MEDS: NICOTINE 21 MG/24 HR PATCH TRANSDERM SCH (10:07)
[2016-12-12] MEDS: ASPIRIN EC 81 MG TABLET PO SCH (10:07)
[2016-12-12] MEDS: METOPROLOL TARTRATE 50 MG TABLET PO SCH ×2 (10:07→20:27)
[2016-12-12] MEDS: PANTOPRAZOLE 40 MG TABLET PO SCH (10:07)
[2016-12-12] MEDS: SODIUM CHLORIDE 0.9% 1,000 ML IV SCH ×2 (10:14→21:35)
--- NOTE | 2016-12-12 11:52 | Physician Query Form ---
CLICK EDIT DOCUMENT TO SELECT QUERY ANSWER --> OK --> SIGN Chloe Sibley RN Clinical [employer] Operator W) [phone] (f) [phone] [email or web address] PROVIDERS: Make your selection(s) from the choices in EACH section by typing an "x" and enter comments in the comment section. Please use your independent medical judgment in providing your response. This request does not imply that any particular answer is desired or expected. CLINICAL INDICATORS: (Providers should not edit this section) Based on documentation of serum creatinine from 1.2 to 1.6. GFr form 0 to 51. Monitored with serial lab checks. Treated with NS infusion. Clarify which of the following most accurately represents the patient's renal status: (X ) Acute kidney injury (non-traumatic) ( ) Acute renal failure ( ) Acute renal failure with underlying Chronic Kidney Disease (CKD) - please provide stage below ( ) Acute renal failure with pathological renal lesion ( ) Acute renal failure with necrosis ( ) tubular ( ) medullary ( ) cortical ( ) CKD - please provide stage below ( ) End Stage Renal Disease ( ) Acute interstitial nephritis ( ) Hepatorenal syndrome ( ) Other, please specify: ( ) Clinically unable to determine Chronic Kidney Disease Stages Source: National Kid[employer] Foundation ( ) Stage I (eGFR > or = 90) ( ) Stage II (eGFR 60 - 89) ( ) Stage III (eGFR 30 - 59) ( ) Stage IV (eGFR 15 - 29) ( ) Stage V (eGFR < 15 or dialysis) COMMENTS: PLEASE ALSO DOCUMENT RESPONSE IN PROGRESS NOTES AND/OR DISCHARGE SUMMARY Use of terms such as suspected, likely, or probable (associated with a specific diagnosis that is being evaluated, monitored, or treated as if it exists) are acceptable and can be restated in the discharge summary if not ruled out. MTDD
--- NOTE | 2016-12-12 12:03 | Nuclear Medicine Report ---
NM gastric emptying study Indication: Abdominal pain. Comparison: None. Technique: Following administration of 500 uCi technetium 99m labeled sulfur colloid mixed in an egg sandwich, planar imaging of the stomach and upper abdomen was performed in the anterior projection. Time activity curve was then calculated through 108 minutes. Findings: Planar images demonstrate homogeneous activity within the stomach with emptying into the small bowel normal manner. Time/activity curve demonstrates : Linear fit of emptying is 67.5 minutes, within normal limits. Impression: 1. No evidence of gastroparesis. 12/12/2016 11:59 AM PROCEDURE INTERPRETED AT [facility] DEPARTMENT OF RADIOLOGY Final Report Signed by: Dr. Seth Lerma
--- NOTE | 2016-12-12 14:24 | Hospitalist Progress Note ---
Assessment and Plan (1) Peripheral vascular disease Status: Acute Assessment and plan: The patient will continue on Lovenox and Plavix. Hypercoagulable evaluation continues. Dr. Gibson is considering options for improving the patient's peripheral circulation. Nuclear gastric emptying study did not reveal evidence of gastroparesis. Current Visit: Yes (2) Abdominal pain Status: Acute Current Visit: No Hospitalist: Subjective Interval history: The patient appears somewhat more relaxed today. The patient still has left leg pain. The patient had gastroparesis study today which did not reveal any significant delay of gastric emptying. Exam - Constitutional Vitals: Period Temp Pulse Resp BP Sys/Chavarria Pulse Ox Last 24 Hr 96.9 F-98.0 F 62-75 18-18 119-161/64-88 97-100 General appearance: mild distress - Respiratory Respiratory exam: Present: clear to auscultation bilaterally - Cardiovascular Cardiovascular exam: Present: regular rate and rhythm Results - Labs CBC & BMP: 12/12/16 06:07 12/12/16 06:07 Lab Results: I have reviewed the past 24 hour labs Specialty Discharge - Follow Up or Referrals Follow up with: Tamiko Washington MD [Physician] - 12/21/16 1:20 pm
--- NOTE | 2016-12-12 18:17 | Event Note ---
Still seems to be little more comfortable today talk with Dr. Tse we are going to review the CT angiogram and consider whether to try thrombolyzes of the SMA clot and then possibly placement of iliac stents to see if we can resume flow into the lower legs without a major aortobifemoral bypass explained to her what our thoughts are that certainly if she does have some sort of coagulopathy that placed in the stents may result in occlusion in the very near future again she understands Dr. Garcia and I will discuss it further tomorrow in the meantime I am going to add Reglan to see if that will improve her nausea notably the gastric emptying scan was normal
[2016-12-12] MEDS: ATORVASTATIN 20 MG TABLET PO SCH (20:27)
[2016-12-12] MEDS: METOCLOPRAMIDE 10 MG TABLET PO SCH (20:27)
[2016-12-13] MEDS: ENOXAPARIN 80 MG/0.8 ML SYRINGE SUBCUT SCH ×2 (04:39→16:50)
[2016-12-13 06:50] LABS: Basophils # 0.1 10*3/uL (0.0-0.2); Basophils % 0.9 % (0.0-0.8); Eosinophils # 0.1 10*3/uL (0.0-0.87); Hematocrit 30.3 VOL% (35.7-47.0); Hemoglobin 10.6 GM/DL (12.0-16.0); Immature Granulocytes % 0.2 %; Immature Granulocytes Absolute 0.01 #; Lymphocytes # 3.1 10*3/uL (1.4-4.0); Lymphocytes % 57.1 % (21.3-54.2); Mean Corpuscular Hemoglobin 32 PG (27-34); Mean Corpuscular Volume 91.3 FL (87-102); Mean Platelet Volume 10.4 FL (9.6-12.0); Monocytes # 0.7 10*3/uL (0.11-0.8); Monocytes % 12.9 % (1.7-12.7); Neutrophils # 1.5 10*3/uL (1.4-7.4); Neutrophils % 26.9 % (38.7-73.9); Platelet Count 277 T/CUMM (130-400); Red Blood Count 3.32 MC/CUMM (3.8-5.5); Red Cell Distribution Width 12.9 % (9.3-17.3); White Blood Count 5.4 T/CUMM (4-12)
[2016-12-13 07:16] LABS: Eosinophils 5 % (0-10); Hypochromasia 1+; Lymphocytes 53 % (20-55); Microcytosis Slight; Platelet Estimate Adequate; Segmented Neutrophils 34 % (50-85); Total Cells Counted 100
[2016-12-13 07:30] LABS: Calcium 8.4 MG/DL (8.5-10.1); Osmolality,Calculated 275.5 MOS/KG (273-304); Potassium 3.3 MMOL/L (3.5-5.1)
[2016-12-13] MEDS: LISINOPRIL 20 MG TABLET PO SCH (08:18)
[2016-12-13] MEDS: METOPROLOL TARTRATE 50 MG TABLET PO SCH ×2 (08:18→20:22)
[2016-12-13] MEDS: PANTOPRAZOLE 40 MG TABLET PO SCH (08:18)
[2016-12-13] MEDS: glyBURIDE 5 MG TABLET PO SCH ×2 (08:19→16:50)
[2016-12-13] MEDS: amLODIPine 10 MG TABLET PO SCH (08:19)
[2016-12-13] MEDS: ASPIRIN EC 81 MG TABLET PO SCH (08:19)
[2016-12-13] MEDS: METOCLOPRAMIDE 10 MG TABLET PO SCH ×4 (08:19→20:22)
[2016-12-13] MEDS: CARVEDILOL 25 MG TABLET PO SCH ×2 (08:21→20:22)
[2016-12-13] MEDS: CLOPIDOGREL 75 MG TABLET PO SCH (08:22)
[2016-12-13] MEDS: NICOTINE 21 MG/24 HR PATCH TRANSDERM SCH (08:23)
[2016-12-13] MEDS: HYDROmorphone 2 MG/1 ML VIAL IV PRN ×2 (12:22→20:23)
[2016-12-13] MEDS: SODIUM CHLORIDE 0.9% 1,000 ML IV SCH (12:24)
--- NOTE | 2016-12-13 14:10 | Hospitalist Progress Note ---
Assessment and Plan (1) Peripheral vascular disease Status: Acute Assessment and plan: The patient will continue on Lovenox and Plavix. Hypercoagulable evaluation continues. Dr. Gibson is considering options for improving the patient's peripheral circulation. Nuclear gastric emptying study did not reveal evidence of gastroparesis. Current Visit: Yes (2) Abdominal pain Status: Acute Current Visit: No Hospitalist: Subjective Interval history: The patient continues with discomfort in the left lower extremity. Dr. Daily is discussing the case with interventional radiology and planning a endovascular repair. Exam - Constitutional Vitals: Period Temp Pulse Resp BP Sys/Chavarria Pulse Ox Last 24 Hr 97.4 F-98.2 F 61-82 16-20 130-163/69-74 98-100 General appearance: mild distress - Respiratory Respiratory exam: Present: clear to auscultation bilaterally - Cardiovascular Cardiovascular exam: Present: regular rate and rhythm - GI/Abdominal GI/Abdominal exam: Present: normal bowel sounds Results - Labs CBC & BMP: 12/13/16 06:06 12/13/16 06:06 Lab Results: I have reviewed the past 24 hour labs Specialty Discharge - Follow Up or Referrals Follow up with: Tamiko Washington MD [Physician] - 12/21/16 1:20 pm
[2016-12-13] MEDS ORDERED: DEXTROSE 50% 25 GM/50 ML VIAL IV PRN (15:34)
[2016-12-13] MEDS ORDERED: GLUCAGON 1 MG VIAL IM PRN (15:34)
--- NOTE | 2016-12-13 15:37 | Event Note ---
Lloyd is feeling better and is would like to have something more to eat than clear liquids I will order a diabetic diet. I spoke with Dr. Garcia in we are going to try again to do thrombolyzes and angioplasty and probably stent the common iliac arteries in hopes that we will be able to maintain flow through those if we can continue the appropriate anticoagulation. Thus far there is no clear evidence of a coagulopathy but there is at least one study that is still pending I did discuss this with Dr. Webster today and he does not feel that there is a contraindication to these attempts. While this may not be as good long-term with maintaining flow an aortobifemoral bypass it certainly will give us opportunity to add a less invasive procedure with much less complications and hopefully improve improve and continue her perfusion in the legs.
--- NOTE | 2016-12-13 15:51 | Inventional Radiology Consult ---
IR Consult - Data of Consult Patient: known to practice within the last 3 years Consult date: 12/13/16 Requesting Physician: Kristopher Gibson - Consult Narrative Reason for consult: SMA and right iliac thrombus and left iliac artery occlusion History of present illness: Lloyd is a 41 year old F Well known to the interventional service with recent aortoiliac occlusion and excellent result status post thrombolysis and angioplasty. Now patient presents with new thrombus formation within the left ventricle, SMA and right common and external iliac artery thrombus and reocclusion of the left common/external iliac artery. This patient has known peripheral vascular disease with bilateral superficial femoral artery occlusions. The previous left small toe amputation does demonstrates significantly improved healing following the previous procedures. Hypercoagulation workup has not revealed any cause for this patient's continued thrombus formation. At this point, she does have moderate rest pain with claudication within the left lower extremity although this is significantly improved from prior. Some poor appetite with nausea/vomiting may be related to underlying poor gastric function. The gastric emptying study however was negative for gastroparesis. Patient does have a history of a mini stroke in 2016. ROS otherwise negative - Home Medications and Allergies Home Medications: Home Medications Medication Instructions Recorded Confirmed Type Atorvastatin [Lipitor] 20 mg PO BEDTIME #30 tablet 07/29/15 12/10/16 Rx Lisinopril [Prinivil] 40 mg PO DAILY #30 tablet 07/29/15 12/10/16 Rx glyBURIDE [Diabeta] 5 mg PO BID W/MEALS #60 tablet 07/29/15 12/10/16 Rx Metoprolol Tartrate Tab [Lopressor 50 mg PO BID 09/04/16 12/10/16 History Tab] Clopidogrel [Plavix] 75 mg PO DAILY #30 tablet 12/01/16 12/10/16 Rx Nicotine 21 mg/24 Hr Patch 1 patch TRANSDERM DAILY #30 patch 12/01/16 12/10/16 Rx [Nicoderm CQ 21 mg/24 hr Patch] amLODIPine [Norvasc] 10 mg PO DAILY tablet 12/01/16 12/10/16 Rx Aspirin EC Tab 81 mg PO DAILY #30 tablet 12/08/16 12/10/16 Rx Carvedilol [Coreg] 25 mg PO BID #60 tablet 12/08/16 12/10/16 Rx Enoxaparin [Lovenox] 80 mg SUBCUT Q12H 12/09/16 12/10/16 History HYDROcodone/ACETAMIN 5-325 [Eden 1 tablet PO Q6H #20 tablet 12/09/16 12/10/16 Rx 5-325] Allergies/Adverse Reactions: Allergies Allergy/AdvReac Type Severity Reaction Status Date / Time No Known Allergies Allergy Unverified 12/04/16 10:16 12 point system: reviewed and no additional remarkable complaints except as stated Medical,Surgical,& Family Hx - Medical History Cardio: History of: Hypertension, PVD (VASCULAR STENTS 2017 TO LEFT LEG) Neurology: History of: Cerebrovascular Accident (2016.), Peripheral Neuropathy No history of: Seizures HEENT: History of: Eye Problem (GLASSES) Endocrine: History of: Diabetes Mellitus (NIDDM), Dyslipidemia Respiratory: No history of: Respiratory Problems (FLU VAC- NO; PNEU VAC-NO.) Genitourinary: History of: Recurring Urinary Tract Infections Gastrointestinal: History of: GERD, Pancreatitis Musculoskeletal: History of: Amputation (5TH LEFT TOE), Back/Neck Problems, Musculoskeletal Problems (ARTHRITIS.) Other: History of: MRSA (LEFT TOE), Miscellaneous Medical Problems (DVT) - Surgical History Cardiac Surgeries: Patient Denies: Femoral-Popliteal Bypass Graft, Cardiac Catheterization, Cardiac Surgery, Carotid Endarterectomy, Internal Defibrillator, Vascular Access Devices Thoracic Surgeries: Patient denies;: Organ Transplant, Lobectomy HEENT Surgeries: Patient denies: Carotid Endarterectomy Abdominal Surgeries: Surgical HX of: Abdominal Surgery, Cholecystectomy, Colonoscopy Patient denies: Splenectomy Reproductive Surgeries: Patient denies;: Gynecologic Surgery - Family History Family History: Reports;: Family Cancer (uncle-colon, aunt-breast, aunt-leukemia ), Family Diabetes, Family Heart Disease, Family Hypertension - Social History Smoking Status: Current every day smoker Frequency of Alcohol Use: None Type of Drug Use: None Exam - Labs CBC & BMP: 12/13/16 06:06 12/13/16 06:06 Image Studies: CT ABD/PEL - Constitutional Vitals: Period Temp Pulse Resp BP Sys/Chavarria Pulse Ox Last 24 Hr 97.4 F-98.2 F 61-82 16-20 130-163/69-74 98-100 General appearance: over weight - Eye Eye exam: Present: EOMI - Respiratory Respiratory exam: Present: clear to auscultation bilaterally - Cardiovascular Cardiovascular exam: Present: regular rate and rhythm Peripheral pulses: 0: Common Femoral (L), 1+: Common Femoral (R) - GI/Abdominal GI/Abdominal exam: Present: normal bowel sounds - Expanded Right Lower Upper Leg exam: Present: normal inspection Lower leg exam: Present: normal inspection Foot/Toe exam: Present: normal inspection Neuro vascular tendon exam: Present: pulse deficit (cannot feel DP) Left Lower Foot/Toe exam: Present: amputation (left small toe - wound appears partially healed) - Neurological Exam Neurological exam: Present: alert, oriented X3 - Psychiatric Psychiatric exam: Present: normal affect, normal mood - Skin Skin exam: Present: normal color, dry
[2016-12-13] MEDS: ONDANSETRON 4 MG/2 ML VIAL IV PRN (20:22)
[2016-12-13] MEDS: ATORVASTATIN 20 MG TABLET PO SCH (20:22)
[2016-12-13] MEDS ORDERED: DEXTROSE 50% 25 GM/50 ML SYRINGE IV PRN (22:30)
[2016-12-14] MEDS: SODIUM CHLORIDE 0.9% 1,000 ML IV SCH ×3 (01:53→21:49)
[2016-12-14] MEDS: ENOXAPARIN 80 MG/0.8 ML SYRINGE SUBCUT SCH ×2 (06:00→17:30)
[2016-12-14 06:09] LABS: Apearance,Urine Slightly Hazy (Clear); Bacteria,Urine Occasional /HPF (Few); Bilirubin,Urine Negative (Negative); Blood, Urine Moderate mg/dL (Negative); Glucose,Urine (UA) Negative (Negative); Hyaline Casts,Urine 2 /LPF (0-3); Ketones,Urine Negative (Negative); Mucus,Urine Occasional /LPF (Occasional); Nitrite,Urine Negative (Negative); Protein,Urine 100 MG/DL; RBC,Urine 8 /HPF (0-4); Squamous Epithelial Cell,Urine Occasional /HPF (0-10); Urine Color Yellow (Yellow); Urine Specific Gravity 1.012 (1.001-1.035); WBC,Urine 4 /HPF (0-6)
[2016-12-14] MEDS ORDERED: fentaNYL 100 MCG/2 ML VIAL ONE (07:59)
[2016-12-14] MEDS ORDERED: MIDAZOLAM 2 MG/2 ML VIAL ONE ×3 (07:59→17:15)
[2016-12-14] MEDS ORDERED: MIDAZOLAM 2 MG/2 ML VIAL IV ONE (08:00)
[2016-12-14] MEDS ORDERED: fentaNYL 100 MCG/2 ML VIAL IV ONE (08:00)
[2016-12-14] MEDS ORDERED: HEPARIN/NACL 0.9% 2 UNITS/ML 3,000 ML IV ONE (08:00)
[2016-12-14] MEDS ORDERED: HEPARIN DRIP 25,000 UNITS/500 ML PREMIX IV ONE (08:59)
[2016-12-14] MEDS ORDERED: LIDOCAINE 100 MG/5 ML SYRINGE ONE (09:00)
[2016-12-14] MEDS ORDERED: ONDANSETRON 4 MG/2 ML VIAL ONE ×3 (09:00→09:39)
[2016-12-14] MEDS ORDERED: ETOMIDATE 20 MG/10 ML VIAL IV ONE (09:00)
--- NOTE | 2016-12-14 09:19 | Oncology Progress Note ---
Oncology Subjective PN Interval history: I ordered hypercoagulability studies on December 05 and they all have returned. Factor V Leiden is negative and also mutation prothrombin [id number] is negative. Lupus anticoagulant is not detectable. The previously reported antiphospholipid antibodies are negative. Case discussed with Dr. Gibson yesterday. I expressed concern that this patient is probably going to be noncompliant with any anticoagulants that she is prescribed. I do not know whether she would do better on 1 of the newer oral anticoagulants or back on low molecular weight heparin. My feeling is that she is more likely to tolerate oral agents than shots. Exam - Constitutional Vitals: Period Temp Pulse Resp BP Sys/Chavarria Pulse Ox Last 24 Hr 97.6 F-98.7 F 71-87 12-24 123-182/68-105 95-100 Results - Labs CBC & BMP: 12/13/16 06:06 12/13/16 06:06 Specialty Discharge - Follow Up or Referrals Follow up with: Tamiko Washington MD [Physician] - 12/21/16 1:20 pm
[2016-12-14] MEDS ORDERED: ONDANSETRON 4 MG/2 ML VIAL IV ONE (09:25)
[2016-12-14] MEDS ORDERED: HEPARIN 5,000 UNIT/1 ML VIAL ONE (09:27)
[2016-12-14] MEDS ORDERED: HEPARIN 5,000 UNIT/1 ML VIAL IV ONE (09:28)
[2016-12-14] MEDS ORDERED: hydrALAZINE 20 MG/1 ML VIAL ONE (09:34)
[2016-12-14] MEDS ORDERED: hydrALAZINE 20 MG/1 ML VIAL IV ONE (09:35)
[2016-12-14] MEDS: ALTEPLASE 24 MG in SODIUM CHLORIDE 0.9% 480 ML IV SCH (09:50)
[2016-12-14] MEDS ORDERED: HEPARIN DRIP 25,000 UNITS/500 ML PREMIX IV SCH (10:00)
[2016-12-14] MEDS: METOCLOPRAMIDE 10 MG TABLET PO SCH ×2 (10:25→12:00)
[2016-12-14] MEDS: ASPIRIN EC 81 MG TABLET PO SCH (10:25)
[2016-12-14] MEDS: glyBURIDE 5 MG TABLET PO SCH ×2 (10:25→17:42)
[2016-12-14] MEDS: HYDROmorphone 2 MG/1 ML VIAL IV PRN ×4 (10:25→19:48)
[2016-12-14] MEDS: CARVEDILOL 25 MG TABLET PO SCH ×2 (10:26→21:13)
[2016-12-14] MEDS: amLODIPine 10 MG TABLET PO SCH (10:26)
[2016-12-14] MEDS: METOPROLOL TARTRATE 50 MG TABLET PO SCH ×2 (10:26→21:13)
[2016-12-14] MEDS: ONDANSETRON 4 MG/2 ML VIAL IV PRN ×2 (10:26→14:57)
[2016-12-14] MEDS: NICOTINE 21 MG/24 HR PATCH TRANSDERM SCH (10:26)
[2016-12-14] MEDS: LISINOPRIL 20 MG TABLET PO SCH (10:27)
[2016-12-14] MEDS: CLOPIDOGREL 75 MG TABLET PO SCH (10:27)
[2016-12-14] MEDS: PANTOPRAZOLE 40 MG TABLET PO SCH (10:30)
--- NOTE | 2016-12-14 10:55 | Post Interventional Procedure ---
Pre-op diagnosis: bilateral iliac artery thrombus Post-op diagnosis: same Procedure: left iliac artery angioplasty with thrombolytic cathether placement at both iliac arteries for overnight thrombolysis Contrast: 75 mL visi 320 Flouroscopy: 20.2 min Radiologist: Hipolito Garcia Anesthesia: conscious sedation Medications: 100 mcg IV fentanyl 2 mg IV Versed 8 mg zofran 20 mg IV hydralazine 5000 Units Heparin iV Total Sedation Time: 59 mins Specimens: none sent Estimated blood loss: minimal (20 mL) Complications: none Condition: stable Description/Findings: complete left common iliac occlusion with filing defects in the right iliac artery consistent with thrombus 8mm angioplasty of the left common/external iliac 50 cm thrombolytic infusion catheter placed across the bifurcation to drip to both iliacs/femorals patient transferred to ICU for close monitoring Assessment and Plan - Time spent with patient Time spent with patient: Greater than 30 minutes
[2016-12-14] MEDS ORDERED: PROMETHAZINE INJ 25 MG in SODIUM CHLORIDE 0.9% 50 ML IV PRN (10:56)
[2016-12-14 11:17] LABS: INR 1.1; PT Patient Result 11.3 SECS
[2016-12-14 11:29] LABS: Partial Thromboplastin Time 131.2 SECS (0-40)
--- NOTE | 2016-12-14 12:00 | Interventional Radiology Rpt ---
IR angio Ext BI, US guide vascular access, US guide vascular access, IR plane captain iliac, IR TPA trans cath inf arterial Angioplasty of the left common and external iliac arteries Ultrasound guidance for vascular access (due to patient obesity and occlusion/nonpalpable left common femoral artery). Thrombolytic catheter placement at the aortic bifurcation and into the bilateral common and external iliac arteries for overnight thrombolysis. Clinical Information: 41-year-old female with unknown cause of continued arterial clot formation with recent angioplasty and thrombolysis of aortoiliac occlusion on 11/29-. Patient now presents with mid abdominal pain. Although there is improved healing of the left small toe amputation soft tissues, the repeat scanning demonstrates new occlusion of the left common and external iliac arteries as well as the thrombus throughout the right common and external iliac artery. Hypercoagulable workup however has been negative. Physician: Dr. Garcia Procedure: The patient was advised of the benefits, risks, and alternatives of the procedure and informed consent was obtained. A time out was performed with verification of the patient's name, MRN, site of procedure, and type of procedure to be performed. The patient was positioned in the supine position on the angiographic table. The site was prepped and draped in the usual sterile fashion. Moderate sedation was performed by the physician including the presence of an independent trained observer that assisted in monitoring the patient's level of consciousness and physiological status throughout the procedure. Following the administration of 2 mg intravenous Versed and 100 mcg intravenous fentanyl the physician spent 60 minutes of continuous veer-ct-eabk time with the patient. A credit control assistant radiograph reveals no relevant abnormality. 2% lidocaine was used for local anesthesia. The right common femoral artery was accessed with a microintroducer set. Ultrasound guidance was utilized for vascular access and a permanent image was retained for the patient's permanent record. A short 0.018" wire was inserted and the needle was exchanged for a 4 Fr microintroducer sheath. The guidewire and dilator were removed and a 0.035" J-wire was advanced into the abdominal aorta. The right common femoral artery was accessed with an 18G single wall needle. A 0.035" J-wire was advanced into the abdominal aorta. A 6 Fr sheath was placed over the wire. A 5F Tegtmeyer catheter was inserted through the sheath and placed into the upper abdominal aorta. Aortography demonstrates narrowing of the distal aorta with mild stenosis at the right common/external iliac artery and residual thrombus within the distal right external iliac artery/common femoral artery. The left common and external iliac arteries are not visualized. Subsequently, the left common femoral artery was accessed with a microtrabecular set. Ultrasound guidance was utilized for vascular access and a permanent image obtained for the patient's permanent record. A short 018 wire was then inserted and the needle was exchanged for a 4 Vietnamese micropuncture introducer sheath. The guidewire and dilator removed and an 035 Glidewire was advanced into the abdominal aorta. Over the Glidewire, the Tegtmeyer catheter was passed however, there was question of dissection. Arteriogram demonstrates medication into the true lumen however, there is suggestion of residual thrombus within the distal aorta versus small dissection. The Omniflush catheter was then exchanged for a 5 Vietnamese C2 catheter. The left common iliac artery was accessed antegrade from the right common femoral approach with the Glidewire. The Glidewire was advanced into the right common femoral artery. Over the Glidewire, the C2 catheter was advanced and arteriogram demonstrates patent but narrowed common and deep femoral branches. Additional sheath arteriogram from the left common femoral approach also demonstrates some runoff into the left leg. The standard Glidewire was exchanged for a stiff Glidewire. A Tegtmeyer within the left common iliac artery was again injected and there is some filling of the distal aorta and inferior mesenteric artery with contralateral filling of the right common and external iliac arteries. However, there is no significant runoff into the left leg. Again multiple filling defects are noted within the left common and external iliac arteries likely representing residual thrombus as seen on prior CT. The Tegtmeyer catheter on the left was advanced slightly but could not be freely mobile is within the distal aorta and repeat injection demonstrates positioning other adjacent to a large distal aortic thrombus or within a small focal dissection. The catheter was withdrawn. From the right common femoral artery access, the left common and external iliac arteries balloon with a by 80 mm Moclips balloon. Following angioplasty, brief arteriogram demonstrates no significant runoff into the left lower extremity, likely due to embolization of thrombus. However there is significant retrograde filling and contralateral filling of the right common and external iliac artery. Right common femoral sheath angiogram demonstrates retrograde filling of the external and common iliac vessels with multifocal small filling defects with normal compatible with known thrombus. There is no significant high-grade stenosis. Given that no significant runoff was visualized within the left lower extremity, the Tegtmeyer catheter was advanced into the left common femoral artery. Arteriogram demonstrates very minimal runoff with a large thrombus at the common femoral artery. At this point, the 50 cm thrombolytic catheter was advanced up and over the aortic bifurcation and positioned within the left common femoral artery. Thrombolytic was connected to the catheter at the standard rate of 1 mg per hour. Both femoral sheaths were secured to the skin using a sterile Tegaderm, to be removed following our follow up study tomorrow. The patient tolerated the procedure well and was transferred to the ICU in stable condition. EBL: < 5 mL. Complications: None. Fluoroscopy time: 20.2 minutes Conclusion: 1. Rethrombosis of the left common and external iliac arteries with partial thrombus throughout the right common and external iliac arteries. 2. Status post angioplasty left common and external iliac arteries with minimal distal embolization of thrombus to the left common femoral artery. 3. Thrombolytic infusion catheter placement over the aortic bifurcation and throughout the bilateral iliac vessels for overnight thrombolysis. Plan: We will recheck tomorrow with the hope of significant improvement and plan for bilateral common iliac artery stent placement. PROCEDURE INTERPRETED AT [facility] DEPARTMENT OF RADIOLOGY Final Report Signed by: Hipolito Garcia
--- NOTE | 2016-12-14 12:09 | Event Note ---
We are in the process of thrombolyzes angioplasty of the iliacs stents actually develop a little hematoma on her left forearm from recent blood draw watch out for any kind of blood drawings while she is on the TPA infusion.
[2016-12-14] MEDS ORDERED: POTASSIUM CHLORIDE 20 MEQ TABLET PO ONE (14:01)
--- NOTE | 2016-12-14 14:11 | Hospitalist Progress Note ---
Assessment and Plan (1) Upper GI bleed Status: Acute Assessment and plan: 1)UGIB with repeated vomiting on TPA, heparin infusion, asa, plavix- Stat consult to GI- I have talked to Melba Armijo NP. Also I have coordinated care with DR Garcia. Will let DR Gibson know also. stat H&H pending. COnfirm she is on PPI. BP down compared to earlier in the day. 2)hypercoagulable state with recurrent clots in iliac arteries, SMA, stented today. 3)HTN- not hypertensive at this time. monitor. concerned her normalized BP could be due to bleed. critical care time 30 minutes in care coordination, exam, orders. Current Visit: Yes (2) Hypertension Status: Chronic Current Visit: No Qualifiers: Hypertension type: essential hypertension Qualified Code(s): I10 - Essential (primary) hypertension (3) Intractable nausea and vomiting Status: Resolved Current Visit: No (4) Mural thrombus of heart Status: Acute Current Visit: No Hospitalist: Subjective Interval history: Mrs Desai is vomiting blood. She is on TPA, heprain infusion and asa and plavix. I discussed it with Dr Garcia who did the stents today and we agreed on stat H& H, GI consult. Suspect aleja granado tear since she has been vomiting since the procedure. Exam - Constitutional Vitals: Period Temp Pulse Resp BP Sys/Chavarria Pulse Ox Last 24 Hr 97.6 F-98.7 F 71-89 12-24 123-230/68-149 95-100 General appearance: mild distress (blood in and around emesis bag and some on floor, small amounts. BP stable. ), over weight - Eye Eye exam: Present: EOMI. Absent: scleral icterus - Respiratory Respiratory exam: Present: clear to auscultation bilaterally - Cardiovascular Cardiovascular exam: Present: regular rate and rhythm - GI/Abdominal GI/Abdominal exam: Present: normal bowel sounds, soft - Extremities Exam Extremities exam: Absent: edema Results - Labs CBC & BMP: 12/13/16 06:06 12/13/16 06:06 Specialty Discharge - Follow Up or Referrals Follow up with: Tamiko Washington MD [Physician] - 12/21/16 1:20 pm
[2016-12-14] MEDS ORDERED: LORazepam 2 MG/1 ML VIAL IV PRN (14:27)
--- NOTE | 2016-12-14 14:41 | Gastrointestinal Consult Note ---
<Melba Armijo - Last Filed: 12/14/16 14:39> Assessment and Plan (1) Upper GI bleed Status: Acute Assessment and plan: 12/14-Sudden onset of nausea and vomiting with bright red blood and dark blots, in setting of hypercoagulable state, with Activase and Heparin infusion (now on hold). Prior EGD in 2016 with only findings of GERD and gastritis. Stat HH and repeat coag studies pending with PTT this morning at 131. C/o severe abdominal pain x [address] days[address]iscuss[address] case with Dr Blanchard as well as Dr Guthrie and will plan to proceed with EGD later this afternoon. Plan and addendum to follow by Dr Guthrie. Current Visit: Yes History of Present Illness Chief complaint: Hemetemsis History of present illness: Ms. Desai is a 41 year old female who was admitted to the hospital on 12/10 with complaints of abdominal pain. Patient is a poor historian at this time due to severe pain. Limited information is available from the patient and no family is available. Information is also obtained from chart review, nursing staff, and discussion with Dr. Pandey. Patient has a history of hypertension, diabetes , dyslipidemia, CVA, and heavy tobacco use. Patient also has a prior history of peripheral vascular disease and was on anticoagulant therapy of Lovenox and Plavix which she was discharged home on 12/08.. She is noted to have been discharged from our facility on 12/01 after an inpatient stay for extensive vascular occlusive disease. She had a CT angiogram done during that hospitalization and was found to have right iliac occlusion disease as well as left common iliac and bilateral superficial femoral proximal popliteal occlusions. She was able to have thrombolysis as well as angioplasty by Dr. Garcia. She was discharged on 12/08 from that hospitalization and presented back on 12/10 with complaints of intractable nausea and vomiting and abdominal pain. She denies having hematemesis or coffee-ground emesis at home during her vomiting episodes. She also denies having melena or hematochezia but she also states she is not certain as that she did not pay attention to her bowel movements. She states she is having severe mid umbilical pain that is constant in nature. She reportedly began having some nausea this morning and " spitting up blood" which has progressed this afternoon to vomiting moderate to large amount of bright red blood with dark clots noted. Patient is complaining of continual nausea and unrelenting abdominal pain. She is noted to have had repeat angioplasty to left iliac artery as well as thrombolytic catheter placement to both iliac arteries on this morning with TPA infusion. She was also placed on continue heparin infusion. At this time, the heparin is on hold due to an elevated PTT. She has had endoscopy done in July of last year with an EGD by Dr. Guthrie for complaints of nausea and vomiting, with only findings of GERD and gastritis. She is being followed by Dr. Webster and noted that her hypercoagulable studies from December 05 are negative at this time including lupus, factor V Leiden, and antiphospholipid antibodies. Home Medications Medication Instructions Recorded Confirmed Type Atorvastatin [Lipitor] 20 mg PO BEDTIME #30 tablet 07/29/15 12/10/16 Rx Lisinopril [Prinivil] 40 mg PO DAILY #30 tablet 07/29/15 12/10/16 Rx glyBURIDE [Diabeta] 5 mg PO BID W/MEALS #60 tablet 07/29/15 12/10/16 Rx Metoprolol Tartrate Tab [Lopressor 50 mg PO BID 09/04/16 12/10/16 History Tab] Clopidogrel [Plavix] 75 mg PO DAILY #30 tablet 12/01/16 12/10/16 Rx Nicotine 21 mg/24 Hr Patch 1 patch TRANSDERM DAILY #30 patch 12/01/16 12/10/16 Rx [Nicoderm CQ 21 mg/24 hr Patch] amLODIPine [Norvasc] 10 mg PO DAILY tablet 12/01/16 12/10/16 Rx Aspirin EC Tab 81 mg PO DAILY #30 tablet 12/08/16 12/10/16 Rx Carvedilol [Coreg] 25 mg PO BID #60 tablet 12/08/16 12/10/16 Rx Enoxaparin [Lovenox] 80 mg SUBCUT Q12H 12/09/16 12/10/16 History HYDROcodone/ACETAMIN 5-325 [[place] 1 tablet PO Q6H #20 tablet 12/09/16 12/10/16 Rx 5-325] Allergies Allergy/AdvReac Type Severity Reaction Status Date / Time No Known Allergies Allergy Unverified 12/04/16 10:16 Medical,Surgical,& Family Hx - Medical History Cardio: History of: Hypertension, PVD (VASCULAR STENTS 2017 TO LEFT LEG) Neurology: History of: Cerebrovascular Accident (2016.), Peripheral Neuropathy No history of: Seizures HEENT: History of: Eye Problem (GLASSES) Endocrine: History of: Diabetes Mellitus (NIDDM), Dyslipidemia Respiratory: No history of: Respiratory Problems (FLU VAC- NO; PNEU VAC-NO.) Genitourinary: History of: Recurring Urinary Tract Infections Gastrointestinal: History of: GERD, Pancreatitis Musculoskeletal: History of: Amputation (5TH LEFT TOE), Back/Neck Problems, Musculoskeletal Problems (ARTHRITIS.) Other: History of: MRSA (LEFT TOE), Miscellaneous Medical Problems (DVT) - Surgical History Cardiac Surgeries: Patient Denies: Femoral-Popliteal Bypass Graft, Cardiac Catheterization, Cardiac Surgery, Carotid Endarterectomy, Internal Defibrillator, Vascular Access Devices Thoracic Surgeries: Patient denies;: Organ Transplant, Lobectomy HEENT Surgeries: Patient denies: Carotid Endarterectomy Abdominal Surgeries: Surgical HX of: Abdominal Surgery, Cholecystectomy, Colonoscopy Patient denies: Splenectomy Reproductive Surgeries: Patient denies;: Gynecologic Surgery - Family History Family History: Reports;: Family Cancer (uncle-colon, aunt-breast, aunt-leukemia ), Family Diabetes, Family Heart Disease, Family Hypertension - Social History Smoking Status: Current every day smoker Frequency of Alcohol Use: None Type of Drug Use: None 12 point system: reviewed and no additional remarkable complaints except as stated - Constitutional Constitutional: Present: as per HPI - EENT Eyes: Present: as per HPI Ears: Present: as per HPI Nose, mouth and throat: Present: as per HPI - Cardiovascular Cardiovascular: Present: as per HPI - Respiratory Respiratory: Present: as per HPI - Gastrointestinal Gastrointestinal: Present: as per HPI, abdominal pain, hematemesis, nausea, vomiting - Genitourinary Genitourinary: Present: as per HPI - Musculoskeletal Musculoskeletal: Present: as per HPI - Neurological Neurological: Present: as per HPI - Psychiatric Psychiatric: Present: as per HPI - Endocrine Endocrine: Present: as per HPI - Hematologic/Lymphatic Hematologic/Lymphatic: Present: as per HPI Exam - Constitutional Vitals: Period Temp Pulse Resp BP Sys/Chavarria Pulse Ox Last 24 Hr 97.6 F-98.7 F 71-89 12-24 123-230/68-149 95-100 General appearance: normal weight, no acute distress - Head Head exam: Present: normal inspection, normocephalic - Eye Eye exam: Present: other (lids and conjunctiva unremarkable). Absent: scleral icterus - ENT ENT exam: Present: normal exam, normal oropharynx - Neck Neck exam: Present: normal inspection - Respiratory Respiratory exam: Present: clear to auscultation bilaterally. Absent: rales, rhonchi, wheezes - Cardiovascular Cardiovascular exam: Present: regular rate and rhythm. Absent: diastolic murmur , JVD, systolic murmur - GI/Abdominal GI/Abdominal exam: Present: normal bowel sounds, tenderness (epigastric), soft. Absent: ascites, distended, mass, organomegaly - Extremities Exam Extremities exam: Present: normal inspection, full ROM - Back Exam Back exam: Present: normal inspection - Neurological Exam Neurological exam: Present: alert - Psychiatric Psychiatric exam: Present: normal affect, normal mood - Skin Skin exam: Present: normal color, warm, dry Results - Labs CBC & BMP: 12/13/16 06:06 12/13/16 06:06 Lab Results: I have reviewed the past 24 hour labs Specialty Discharge - Follow Up or Referrals Follow up with: Tamiko Washington MD [Physician] - 12/21/16 1:20 pm <Freddie Guthrie - Last Filed: 12/14/16 17:16> History of Present Illness History of present illness: Ms. Desai is a 41 year old female Exam - Constitutional Vitals: Period Temp Pulse Resp BP Sys/Chavarria Pulse Ox Last 24 Hr 97.6 F-98.7 F 71-91 10-26 123-230/68-149 95-100 Results - Labs CBC & BMP: 12/14/16 14:41 12/13/16 06:06
[2016-12-14 14:54] LABS: Hematocrit 30.1 VOL% (35.7-47.0); Hemoglobin 10.4 GM/DL (12.0-16.0)
[2016-12-14 15:03] LABS: PT Patient Result 10.8 SECS
[2016-12-14] MEDS ORDERED: HEPARIN/NACL 0.9% 2 UNITS/ML 2,000 ML IV ONE (15:05)
--- NOTE | 2016-12-14 15:43 | Event Note ---
Patient is alert and oriented in some pain but otherwise with mild nausea and vomiting. No additional spitting of blood in the last half hours. H&H follow- up is stable. The likely source of her scant hematemesis may be related to her elevated PTT and anticoagulation. Heparin will be held for 1 hour according to the protocol. She also has a small probable right forearm hematoma from a blood draw while on the heparin and TPA. Will get a Doppler ultrasound to confirm that there is no other underlying problem such as additional blood clot given this patient has some hypercoagulable state and recurrent arterial thrombus this admission. Will continue TPA infusion for the recurrent iliac thrombus while hyperdense held. Will monitor PTT levels and fibrinogen and adjust as needed. Plan for repeat arteriogram tomorrow with stenting of the iliac arteries.
--- NOTE | 2016-12-14 16:25 | Ultrasound Report ---
Exam: Right upper extremity venous Doppler/duplex ultrasound Comparison: None Clinical history: Right arm swelling and tenderness Technique: Duplex scan of the right upper extremity veins using th B- mode/grayscale imaging and Dopplers spectral analysis and color flow. Findings: There is normal flow in the right internal jugular, subclavian, axillary, brachial, cephalic, and basilic veins. Normal compression and augmentation. Major venous structures of the right upper extremity demonstrating normal course and caliber with normal color-flow study and spectral analysis. Soft tissue swelling with inhomogeneous echogenicity in the musculature. Impression: No evidence to suggest deep venous thrombosis within the right upper extremity. Soft tissue swelling in the right forearm with inhomogeneous echogenicity in the musculature which may be related to hematoma, infectious process, inflammatory process, etc. Follow-up is recommended. Ultrasound images were captured and stored. PROCEDURE INTERPRETED AT [facility] DEPARTMENT OF RADIOLOGY Final Report Signed by: Dr. Kassidy Salguero
[2016-12-14] MEDS ORDERED: HEPARIN/NACL 0.9% 2 UNITS/ML 500 ML IV ONE ×2 (16:34)
[2016-12-14 16:37] LABS: Partial Thromboplastin Time 59.3 SECS (0-40)
--- NOTE | 2016-12-14 17:21 | Operative Note ---
Date of procedure: 12/14/16 Pre-op diagnosis: Hematemesis Procedure: EGD 41-year-old female with hematemesis complicating hypercoagulable state and multiple clots that have been treated with lytic agents as well as heparin. She is now for upper endoscopy to look for source of her hematemesis. Informed consent was obtained the patient She was sedated with MAC anesthesia per anesthesia protocol. The procedure was done in the intensive care unit patient was placed in left lateral decubitus position the Olympus flexible video upper endoscope was inserted into the oral cavity in the hypopharynx there appears to be blood present and some blood also appears to be coming from the trachea. On entering the esophagus no mucosal abnormalities were observed. Findings: Esophagus moderate hiatal hernia without esophagitis, varices, Dupont's or ulceration. Proximal mid esophageal mucosa are normal. Stomach-old blood present in the stomach this was aspirated. No active bleeding lesion was seen no mucosal abnormalities were noted to direct retroflexed views of the body, fundus, cardia or antrum of the stomach. Pylorus-normal Duodenum-normal for the bulb of the duodenum to the third portion of duodenum. No bloodstained mucosa was identified. The scope was removed and again in the region of the hypopharynx blood was noted to appear to be coming from the trachea. The scope was withdrawn back into the posterior pharynx where NG tube was advanced through the nares into the esophagus under direct vision. The NG tube was secured. Scope was removed patient tolerated procedure well. Postop diagnosis: 1. Suspect pulmonary source for bleeding question pulmonary emboli with her underlying coagulable state. Will defer to primary care team regarding further evaluation. High likelihood that her hematemesis has been swallowed blood. 2. Hiatal hernia no evidence for GI bleed present. Would continue PPI treatment and observe. Anesthesia: MAC Surgeon / Physician: Freddie Guthrie Estimated blood loss: none Specimens: none sent Condition: stable Disposition: post procedure unit Results - Labs CBC & BMP: 12/14/16 14:41 12/13/16 06:06 Discharge Plan - Discharge Medications No Action Atorvastatin [Lipitor] 20 mg PO BEDTIME #30 tablet glyBURIDE [Diabeta] 5 mg PO BID W/MEALS #60 tablet Lisinopril [Prinivil] 40 mg PO DAILY #30 tablet Metoprolol Tartrate Tab [Lopressor Tab] 50 mg PO BID amLODIPine [Norvasc] 10 mg PO DAILY tablet Clopidogrel [Plavix] 75 mg PO DAILY #30 tablet Nicotine 21 mg/24 Hr Patch [Nicoderm CQ 21 mg/24 hr Patch] 1 patch TRANSDERM DAILY #30 patch HYDROcodone/ACETAMIN 5-325 [[place] 5-325] 1 tablet PO Q6H #20 tablet Aspirin EC Tab 81 mg PO DAILY #30 tablet Carvedilol [Coreg] 25 mg PO BID #60 tablet Enoxaparin [Lovenox] 80 mg SUBCUT Q12H - Follow Up or Referral Follow Up: Tamiko Washington MD [Physician] - 12/21/16 1:20 pm - Forms/Instructions
--- NOTE | 2016-12-14 17:23 | Anesthesia Post-Op ---
Anesthesia Post OP - Post Ansesthetic Evaluation Patient seen in post op: Yes Resp: within normal limits CV: within normal limits Mental: within normal limits (opens eyes to verbal stimul) Temp: within normal limits [id number]: within normal limits Nausea and Vomiting: within normal limits Pain: within normal limits
--- NOTE | 2016-12-14 17:38 | XRay Report ---
XR chest 1V portable Indication: Hemoptysis. Comparison: Chest x-ray 12/10/2016. Technique: Portable AP chest was performed. Findings: Heart size is normal. Pulmonary vasculature appears within normal limits. No significant abnormality of the mediastinal contours demonstrated. Lungs are clear. Bones and soft tissues demonstrate no significant abnormalities. NG tube terminates within the gastric fundus. Impression: 1. No evidence of acute pathology. 12/14/2016 5:35 PM PROCEDURE INTERPRETED AT [facility] DEPARTMENT OF RADIOLOGY Final Report Signed by: Dr. Seth Lerma
--- NOTE | 2016-12-14 18:18 | Pulmonology Consult Note ---
History of Present Illness Chief complaint: Hemoptysis. Anticoagulation. PAD. Stents. LV clot History of present illness: Ms. Desai is a 41 year old black female whom I been asked to see in pulmonary consultation. This patient has acute hemoptysis. She has been in the hospital several times with peripheral artery disease that required stents in the iliac arteries bilaterally. She had a procedure today because these had restenosis. She has been on TPA. It was thought that she had a GI bleed. Dr. Mark Guthrie evaluated with a E scope and found no source of bleeding and said he thought the bleeding was coming from the lungs. Since that time the anticoagulation is been scaled back and for right now the patient has no more hemoptysis. Her chest x-ray shows no infiltrates. This patient is not a forthcoming historian. She denies any pain. She is not short of breath. Her O2 sats are 100% on supplemental oxygen. The remainder the review of systems is negative. Allergies. None. Home medicines. See list. Hospital medicine. See list. Past history. High blood pressure. Severe peripheral vascular disease with stents in both iliac arteries. Recent partial occlusion of superior mesenteric artery with a clot. Recent history of a left ventricular clot. Note the patient's had a previous hematology evaluation for clotting disorder by Dr. Webster. No underlying cause of clotting was found other than her severe peripheral artery disease. Patient also has an element of COPD she is a smoker who continues to smoke. In 2016 she had a CVA. There is a history of neuropathy. She has wyd-yecktqx-wzmxgbiis diabetes mellitus and hyperlipidemia. She has had a previous amputation of the left fifth toe. She has a history of arthritis. There is a past history of femoropopliteal bypass grafts. She has had carotid endarterectomy. She has also had cardiac surgery. She has internal defibrillator. Family history. Positive for diabetes, heart disease and high blood pressure. Social history. Smokes. Single. Chest x-ray. No infiltrates. Lab. Clotting studies are normal. H&H is 10.4/30.1. On 12/10/2016 H&H was 12.1/ 34.6. Last creatinine was 1.2. Glucose is under fair control. Urinalysis is normal. Labs been reviewed. Medicines been reviewed. Physical exam. Vital signs. See below Psychiatric. Oriented 3. Reticent to talk. Face. Symmetrical. No swelling of lips or tongue. Neck. Symmetrical no meningismus. Chest. Mild prolongation of expiration with slight large airway congestion. Heart. No gallop Abdomen. Nondistended. Only rare bowel sounds. Lower extremities. No evidence of deep venous thrombophlebitis. Note that Doppler venograms of lower extremities are pending. Neurologic. Cranial nerves appear to be intact and the patient moves all fours. The remainder the physical exam is negative. Impression. 1. Hemoptysis. Hunter to be secondary to anticoagulants. Watch for other causes. 2. Tobacco abuse 3. Probable COPD 4. Severe arteriosclerotic artery disease with lower extremity peripheral stents, previous heart surgery and previous carotid endarterectomy. 5. High blood pressure 6. Kbd-fmsfcev-yelbagipb diabetes mellitus 7. See past history 8. Clot in the left ventricle Plan. 1. Hemoptysis has resolved for present time. Agree with changes made in anticoagulation 2. Inhalation therapy with racemic epinephrine every 6 hours and as needed 3. Follow-up lab and chest x-ray 4. Doppler venograms of the lower extremities 5. See orders Home Medications Medication Instructions Recorded Confirmed Type Atorvastatin [Lipitor] 20 mg PO BEDTIME #30 tablet 07/29/15 12/10/16 Rx Lisinopril [Prinivil] 40 mg PO DAILY #30 tablet 07/29/15 12/10/16 Rx glyBURIDE [Diabeta] 5 mg PO BID W/MEALS #60 tablet 07/29/15 12/10/16 Rx Metoprolol Tartrate Tab [Lopressor 50 mg PO BID 09/04/16 12/10/16 History Tab] Clopidogrel [Plavix] 75 mg PO DAILY #30 tablet 12/01/16 12/10/16 Rx Nicotine 21 mg/24 Hr Patch 1 patch TRANSDERM DAILY #30 patch 12/01/16 12/10/16 Rx [Nicoderm CQ 21 mg/24 hr Patch] amLODIPine [Norvasc] 10 mg PO DAILY tablet 12/01/16 12/10/16 Rx Aspirin EC Tab 81 mg PO DAILY #30 tablet 12/08/16 12/10/16 Rx Carvedilol [Coreg] 25 mg PO BID #60 tablet 12/08/16 12/10/16 Rx Enoxaparin [Lovenox] 80 mg SUBCUT Q12H 12/09/16 12/10/16 History HYDROcodone/ACETAMIN 5-325 [[place] 1 tablet PO Q6H #20 tablet 12/09/16 12/10/16 Rx 5-325] Allergies Allergy/AdvReac Type Severity Reaction Status Date / Time No Known Allergies Allergy Unverified 12/04/16 10:16 Exam (Pulmonay) H&P - Constitutional Vitals: Period Temp Pulse Resp BP Sys/Chavarria Pulse Ox Last 24 Hr 97.6 F-98.7 F 71-91 10-26 123-230/68-149 95-100 Medical,Surgical,& Family Hx - Medical History Cardio: History of: Hypertension, PVD (VASCULAR STENTS 2017 TO LEFT LEG) Neurology: History of: Cerebrovascular Accident (2016.), Peripheral Neuropathy No history of: Seizures HEENT: History of: Eye Problem (GLASSES) Endocrine: History of: Diabetes Mellitus (NIDDM), Dyslipidemia Respiratory: No history of: Respiratory Problems (FLU VAC- NO; PNEU VAC-NO.) Genitourinary: History of: Recurring Urinary Tract Infections Gastrointestinal: History of: GERD, Pancreatitis Musculoskeletal: History of: Amputation (5TH LEFT TOE), Back/Neck Problems, Musculoskeletal Problems (ARTHRITIS.) Other: History of: MRSA (LEFT TOE), Miscellaneous Medical Problems (DVT) - Surgical History Cardiac Surgeries: Patient Denies: Femoral-Popliteal Bypass Graft, Cardiac Catheterization, Cardiac Surgery, Carotid Endarterectomy, Internal Defibrillator, Vascular Access Devices Thoracic Surgeries: Patient denies;: Organ Transplant, Lobectomy HEENT Surgeries: Patient denies: Carotid Endarterectomy Abdominal Surgeries: Surgical HX of: Abdominal Surgery, Cholecystectomy, Colonoscopy Patient denies: Splenectomy Reproductive Surgeries: Patient denies;: Gynecologic Surgery - Family History Family History: Reports;: Family Cancer (uncle-colon, aunt-breast, aunt-leukemia ), Family Diabetes, Family Heart Disease, Family Hypertension - Social History Smoking Status: Current every day smoker Frequency of Alcohol Use: None Type of Drug Use: None Results - Labs CBC & BMP: 12/14/16 14:41 12/13/16 06:06 Specialty Discharge - Follow Up or Referrals Follow up with: Tamiko Washington MD [Physician] - 12/21/16 1:20 pm
[2016-12-14] MEDS: hydrALAZINE 20 MG/1 ML VIAL IV PRN (18:20)
[2016-12-14] MEDS: METOCLOPRAMIDE 10 MG/2 ML VIAL IV SCH (18:27)
[2016-12-14] MEDS: POTASSIUM CHLORIDE RIDER 10 MEQ in PREMIX 1 EACH IV SCH ×2 (18:29→19:34)
--- NOTE | 2016-12-14 18:33 | Event Note ---
I have discussed Mrs. Desai current situation with Dr. Dannie Garcia and Dr. Corrigan. At this time it appears that she did have some mild hematemesis or or hemoptysis while her PT today was markedly elevated while on systemic presentation and the TPA. Dr. Guthrie did not find any evidence of active ongoing bleeding in the upper GI tract has positive possibility of hemoptysis. Since the systemic heparinization stopped the patient has had no evidence of hemoptysis no hematemesis or vital signs of blood counts have remained stable she does have an NG tube in at this time to help with recurring nausea and vomiting which has been a problem for her prior to this acute episode. Dr. Garcia and I have spoken about toes stopping the TPA and an attempt at thrombolyzes. I agree with his thoughts that we will continue with localized heparin and TPA to try to resolve the distal aortic and iliac and common femoral clots and restore as much blood flow was possible to the lower extremities. Thus far Ms. Desia does not have stents in her iliac arteries and we will hopefully be able to do that and improved flow in the iliacs and perhaps improve her perfusion in the lower legs. I am reviewing Dr. Corrigan's notes it appears that he is received some erroneous information that he and I have discussed in should be corrected Ms. Desai does not have a pacemaker or defibrillator she does not have a history of carotid endarterectomy nor of femoral-popliteal bypass. She has not had iliac stents placed yet process of attempting to do so. Does appear to have some type of unusual hypercoagulability with formation of a left ventricular thrombus and what may be thrombotic as well as embolic disease in the lower aorta and the legs. She clearly has some degree of peripheral vascular occlusive disease and stroke associated with her diabetes and heavy smoking and hypertension. All of these issues are making her very complex and difficult to manage medical situation and unusually young woman.
[2016-12-14] MEDS ORDERED: RACEPINEPHRINE 0.5 ML NEB RESP TX PRN (18:38)
--- NOTE | 2016-12-14 18:59 | Ultrasound Report ---
US venous doppler LE BI Indication: Hemoptysis. Comparison: None. Technique: Using a transcutaneous probe, grayscale, spectral Doppler, and color Doppler images of the bilateral lower extremity venous structures were captured and stored. Grayscale images prior to and following compression were obtained. Interrogated venous structures include the bilateral common femoral vein, superficial femoral vein (proximal, mid, and distal), and popliteal vein. Findings: There is no evidence of thrombus within the interrogated venous structures. The interrogated venous segments demonstrate presence of both color flow and spectral flow. Indwelling venous catheters are noted bilaterally. Impression: 1. No evidence of venous thrombosis. 12/14/2016 6:56 PM PROCEDURE INTERPRETED AT [facility] DEPARTMENT OF RADIOLOGY Final Report Signed by: Dr. Seth Lerma
[2016-12-14] MEDS ORDERED: RACEPINEPHRINE 0.5 ML NEB RESP TX SCH (19:00)
[2016-12-14] MEDS ORDERED: ALUMINUM/MAGNES/SIMETH MAX STR 30 ML UDCUP PO PRN (19:30)
[2016-12-14] MEDS: RACEPINEPHRINE 0.5 ML NEB RESP TX SCH (19:32)
[2016-12-14] MEDS: HEPARIN/NACL 0.9% 2 UNITS/ML 500 ML IV SCH (19:36)
[2016-12-14] MEDS: INSULIN ASPART PROTAMINE/ASPART 70/30 100 UNIT/ML SUBCUT SCH (21:13)
[2016-12-14] MEDS: ATORVASTATIN 20 MG TABLET PO SCH (21:13)
--- NOTE | 2016-12-14 21:40 | Event Note ---
Patient doing pretty well this evening. The repeat aPTT is within normal limits. Repeat fibrinogen has dropped slightly but still within normal limits. At this point we are continuing the lysis with TPA through the sheath. The right groin has developed some oozing, which I think is inevitable given the TPA. I have instructed the nurses not to be aggressive with manipulating the sheath as this may make bleeding worse. There is no significant hematoma. They will notify me if bleeding becomes significant or requires further intervention. I did open the left groin sheath three-way valve and there was brisk blood flow , which was encouraging. The left leg is cold to the touch however, the patient is neurologically intact with no reported significant pain and also reports that pain is actually improved from earlier today. I could not Doppler a pulse at the groin but was able to find a dopplerable pulse at the popliteal fossa, which is encouraging. I instructed nursing to increase the heparinized saline flow rate to the left groin sheath at 40 mL per hour, this may improve outflow and TPA administration down the left lower extremity now that we have some restored pulses. Will continue to follow fibrinogen and PTT closely. She continues to have dopplerable pulses at the right foot.
[2016-12-14 23:12] LABS: Hematocrit 27.8 VOL% (35.7-47.0); Hemoglobin 9.7 GM/DL (12.0-16.0)
[2016-12-14] MEDS ORDERED: HEPARIN/NACL 0.9% 2 UNITS/ML 500 ML IV SCH (23:30)
[2016-12-15] MEDS: METOCLOPRAMIDE 10 MG/2 ML VIAL IV SCH ×4 (00:19→17:31)
[2016-12-15] MEDS: RACEPINEPHRINE 0.5 ML NEB RESP TX SCH ×4 (00:48→20:10)
[2016-12-15] MEDS: HYDROmorphone 2 MG/1 ML VIAL IV PRN ×5 (00:54→18:35)
[2016-12-15] MEDS ORDERED: HYDROmorphone 2 MG/1 ML VIAL IV ONE (02:16)
[2016-12-15 02:46] LABS: Basophils % 0.2 % (0.0-0.8); Eosinophils % 0.3 % (0.00-10.9); Hematocrit 25.1 VOL% (35.7-47.0); Hemoglobin 8.6 GM/DL (12.0-16.0); Immature Granulocytes % 0.2 %; Immature Granulocytes Absolute 0.02 #; Lymphocytes # 2.4 10*3/uL (1.4-4.0); Lymphocytes % 26.3 % (21.3-54.2); Mean Corpuscular HGB Conc 34.3 GM/DL (32-36); Mean Corpuscular Hemoglobin 32 PG (27-34); Mean Corpuscular Volume 91.9 FL (87-102); Mean Platelet Volume 10.2 FL (9.6-12.0); Monocytes # 0.8 10*3/uL (0.11-0.8); Monocytes % 8.7 % (1.7-12.7); Neutrophils # 5.8 10*3/uL (1.4-7.4); Neutrophils % 64.3 % (38.7-73.9); Platelet Count 249 T/CUMM (130-400); Red Blood Count 2.73 MC/CUMM (3.8-5.5); Red Cell Distribution Width 13.2 % (9.3-17.3)
[2016-12-15 03:03] LABS: INR 1.1; PT Patient Result 11.3 SECS
[2016-12-15] MEDS ORDERED: SODIUM CHLORIDE 0.9% 500 ML IV ONE (03:31)
[2016-12-15 03:39] LABS: Calcium 7.9 MG/DL (8.5-10.1); Magnesium 1.7 MG/DL (1.8-2.4); Osmolality,Calculated 278.8 MOS/KG (273-304); Potassium 3.7 MMOL/L (3.5-5.1)
[2016-12-15] MEDS: SODIUM CHLORIDE 0.9% 1,000 ML IV SCH ×2 (04:21→17:51)
[2016-12-15 06:18] LABS: Hematocrit 23.4 VOL% (35.7-47.0); Hemoglobin 8.1 GM/DL (12.0-16.0)
--- NOTE | 2016-12-15 07:55 | XRay Report ---
XR chest 1V portable Indication: Hemoptysis Comparison: 14 December 2016 Findings: The heart and mediastinum are normal in size and configuration. NG tube appears in good position. The pulmonary vascularity is normal in caliber. No lung infiltrates, effusions, pneumothorax or other abnormality is demonstrated. Impression: NG tube appears in good position. No other abnormality seen. PROCEDURE INTERPRETED AT [facility] DEPARTMENT OF RADIOLOGY Final Report Signed by: Dr. Silvano Castro
--- NOTE | 2016-12-15 08:03 | CT Report ---
CT forearm RT wo con Indication: Arm swelling Comparison: None available Technique: Axial CT imaging of the forearm is performed without contrast. Computer reformatting is viewed in the sagittal and coronal plane. Findings: No evidence of fracture seen. The alignment of the joints appears normal. No degenerative change is present. There is soft tissue swelling with edema present in the subcutaneous fat and intramuscular fat planes. No focal fluid collection seen. No soft tissue abnormality is seen. Impression: Diffuse soft tissue swelling and edema, may indicate cellulitis. No other abnormality identified. PROCEDURE INTERPRETED AT [facility] DEPARTMENT OF RADIOLOGY Final Report Signed by: Dr. Silvano Castro
[2016-12-15] MEDS ORDERED: HYDROmorphone 2 MG/1 ML VIAL ONE (08:06)
--- NOTE | 2016-12-15 08:10 | CT Report ---
CT abdomen pelvis wo con Indication: Dropping hematocrit, question for retroperitoneal hematoma Comparison: CT 12/09/2016. Technique: CT of the abdomen and pelvis was performed without administration of intravenous contrast. Coronal and sagittal reformatted images were additionally created and submitted for review. The total DLP is 600 mGy*cm. Dose reduction: This CT exam was performed using one or more of the following dose reduction techniques: Automated exposure control, automated adjustment of the mA and/or KV according to patient size, or use of iterative reconstruction technique. Findings: Minimal scattered basilar tree-in-bud opacities are noted, which may represent developing infectious/inflammatory infiltrates or sequela of intrapulmonary hemorrhage in this patient with history of hemoptysis. Lung bases are otherwise predominantly clear. There is no pleural or pericardial effusion. ABDOMEN: Liver/Gallbladder: Unenhanced liver is unremarkable. There is no biliary ductal dilatation. Clinical cystectomy clips are noted. Spleen: No acute findings. Pancreas: No acute findings. Adrenals: Within normal limits in appearance. Kidneys: Both kidneys are symmetric in size with no evidence of hydronephrosis. Bowel/mesentery: An esophagogastric tube is noted within the stomach. Small bowel is nondilated. There is no free fluid/air within the abdomen. There is moderate stool throughout colon suggesting a degree of fecal stasis/constipation. Retroperitoneum: No evidence of aortic aneurysm or retroperitoneal hemorrhage. No retroperitoneal adenopathy. PELVIS: The indwelling bilateral common femoral arterial vascular sheaths are noted. The thrombolytic catheter is noted within the distal aorta and bilateral common/external iliac arteries. Uterus and ovaries are unremarkable for CT technique. Trace free fluid is noted within the dependent pelvis, which may be reactive and/or physiologic. A Hoang catheter is noted within the bladder, which is collapsed. There is no adenopathy. BONES: No acute or suspicious osseous abnormalities are identified. Mild degenerative changes are noted within the lower lumbar spine. IMPRESSION: 1. No acute abnormality within the abdomen or pelvis. No evidence of intra-abdominal or retroperitoneal hemorrhage/hematoma. 2. Minimal patchy basilar opacities within the lung bases may represent atelectasis although patchy infectious/inflammatory infiltrates are not excluded. No significant pleural effusion or focal consolidation is identified. 3. Indwelling vascular catheters within the pelvis and bilateral groin areas without significant vascular complication identified. 12/15/2016 7:59 AM PROCEDURE INTERPRETED AT [facility] DEPARTMENT OF RADIOLOGY Final Report Signed by: Hipolito Garcia
[2016-12-15] MEDS ORDERED: HEPARIN/NACL 0.9% 2 UNITS/ML 3,000 ML IV ONE (08:18)
[2016-12-15] MEDS ORDERED: HEPARIN LOCK FLUSH 500 UNIT/5 ML SYRINGE IV ONE (09:46)
--- NOTE | 2016-12-15 10:24 | Post Interventional Procedure ---
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 Post-op diagnosis: same Procedure: thrombolysis check with bilateral common iliac artery stent placement Contrast: 145 visi 320 Flouroscopy: 11.4 min Radiologist: Hipolito Garcia Specimens: none sent Estimated blood loss: minimal (20 mL) Complications: none Condition: stable Description/Findings: see formal procedure note for details excellent result from thrombolysis with additional bilateral iliac artery stent placement angioseal placed at both common femoral artery puncture sites restart lovenox and plavix today follow perfusion to [facility] and with doppler Assessment and Plan - Time spent with patient Time spent with patient: Greater than 30 minutes
--- NOTE | 2016-12-15 10:34 | Pulmonology Progress Note ---
Pulmonary - PN: Subj Interval history: This is a 41-year-old black female whom I saw in pulmonary consultation on 2016. This patient had acute hemoptysis and this was felt to be secondary to the anticoagulation she was receiving. The amount of anticoagulation was decreased and so far there has been no more hemoptysis. Her chest x-ray appears normal this morning. Patient's main problems are. 1. Possible hypercoagulable state. Workup has been normal. 2. Left ventricular thrombus and possible thrombotic emboli. 3. Peripheral artery disease with occlusion. Plans are to place stents. 4. Past history of stroke thought to be secondary to diabetes, heavy cigarette smoking and high blood pressure. H&H is dropped 8.6/.1. White count is 9000 platelets at 249,000. INR is 1.1. Electrolytes are normal. Creatinine is dropped from 1.60-1.30. Urinalysis shows no evidence of infection. 12/14/2016. Doppler venograms are negative for deep venous thrombophlebitis Chest x-ray. He is 03/2017. No abnormalities. Physical exam. Vital signs. See below Face. Symmetrical. No edema the lips or tongue. Psychiatric. Alert oriented. Not very interested in talking. Neurologic. Cranial nerves appear to be intact and there is some movement of all 4 extremities. Neck. Symmetrical no meningismus. Chest. Clear Heart. No gallop Abdomen. Rare bowel sounds. Extremities. As per Dr. Louie The remainder the physical exam is noncontributory Plan. 1. Watch for recurrence of hemoptysis. 2. Daily x-ray for few days. Exam (Progress Note) - Constitutional Vitals: Period Temp Pulse Resp BP Sys/Chavarria Pulse Ox Last 24 Hr 96.8 F-97.8 F 81-108 10-29 94-210/61-138 94-100 Results - Labs CBC & BMP: 12/15/16 06:10 12/15/16 02:35 Specialty Discharge - Follow Up or Referrals Follow up with: Tamiko Washington MD [Physician] - 12/21/16 1:20 pm
--- NOTE | 2016-12-15 10:52 | Event Note ---
successful thrombolysis and stenting[this am] of common iliac arteries.h/h has dropped but clear location. thrombolsis is completed and can avoid systemic heparin. would continue lovenox until able to start po meds. will start clear liquids and can advance as tolerated. may be able to avoid aortobifemoral grafting with successful stents. may still require femoral-popliteal graft if perfusion inadequate with current inflow improvement.
[2016-12-15] MEDS: amLODIPine 10 MG TABLET PO SCH (10:56)
[2016-12-15] MEDS: CARVEDILOL 25 MG TABLET PO SCH ×2 (10:56→20:24)
[2016-12-15] MEDS: METOPROLOL TARTRATE 50 MG TABLET PO SCH ×2 (10:56→20:24)
[2016-12-15] MEDS: ASPIRIN EC 81 MG TABLET PO SCH (10:56)
[2016-12-15] MEDS: NICOTINE 21 MG/24 HR PATCH TRANSDERM SCH (10:57)
[2016-12-15] MEDS: LISINOPRIL 20 MG TABLET PO SCH (10:57)
[2016-12-15] MEDS: CLOPIDOGREL 75 MG TABLET PO SCH (10:58)
[2016-12-15] MEDS: PANTOPRAZOLE 40 MG TABLET PO SCH (10:58)
[2016-12-15] MEDS: glyBURIDE 5 MG TABLET PO SCH ×2 (11:03→17:32)
--- NOTE | 2016-12-15 11:05 | Gastrointestinal Progress Note ---
<Melba Armijo - Last Filed: 12/15/16 11:03> Assessment and Plan (1) Upper GI bleed Status: Acute Assessment and plan: 09/14-EGD findings noted. No GI source for bleeding. No further hemoptysis or hematemesis reported. Post thrombolysis and common iliac artery stenting today. Activase and heparin discontinued. Lovenox and Plavix restarted. H&H stable at 12/27. Plan an addendum to follow Dr. Guthrie. 12/14-Sudden onset of nausea and vomiting with bright red blood and dark blots, in setting of hypercoagulable state, with Activase and Heparin infusion (now on hold). Prior EGD in 2015 with only findings of GERD and gastritis. Stat HH and repeat coag studies pending with PTT this morning at 131. C/o severe abdominal pain x [address]iscuss[address] case with Dr Blanchard as well as Dr Guthrie and will plan to proceed with EGD later this afternoon. Plan and addendum to follow by Dr Guthrie. Current Visit: Yes Gastroenterology - PN: Subj Interval history: CC: Hematemesis Patient is seen, post bilateral iliac artery stent placement and thrombolysis. Her Activase and heparin have been discontinued and she has been restarted on her Lovenox and her Plavix. Pulmonary is following at this time with no intervention plan other than continued monitoring of hemoptysis and daily x- rays. Abdomen is soft, nontender. She states her pain is improved and is much better at this time. NG tube is patent with minimal output at present. ROS: Denies shortness of breath or chest Exam (Progress Note) - Constitutional Vitals: Period Temp Pulse Resp BP Sys/Chavarria Pulse Ox Last 24 Hr 96.8 F-97.8 F 81-108 10-29 94-210/61-138 94-100 General appearance: normal weight, no acute distress - Head Head exam: Present: normal inspection, normocephalic - Eye Eye exam: Present: other (Lids and conjunctive are unremarkable). Absent: scleral icterus - ENT ENT exam: Present: normal exam, normal oropharynx - Neck Neck exam: Present: normal inspection - Respiratory Respiratory exam: Present: clear to auscultation bilaterally. Absent: rales, rhonchi, wheezes - Cardiovascular Cardiovascular exam: Present: regular rate and rhythm. Absent: diastolic murmur , JVD, systolic murmur - GI/Abdominal GI/Abdominal exam: Present: normal bowel sounds, soft. Absent: ascites, distended, mass, organomegaly, tenderness - Extremities Exam Extremities exam: Present: normal inspection, full ROM - Back Exam Back exam: Present: normal inspection - Neurological Exam Neurological exam: Present: alert, oriented X3 - Psychiatric Psychiatric exam: Present: normal affect, normal mood - Skin Skin exam: Present: normal color, warm, dry Results - Labs CBC & BMP: 12/15/16 06:10 12/15/16 02:35 Lab Results: I have reviewed the past 24 hour labs Specialty Discharge - Follow Up or Referrals Follow up with: Tamiko Washington MD [Physician] - 12/21/16 1:20 pm <Freddie Guthrie - Last Filed: 12/15/16 14:29> Exam (Progress Note) - Constitutional Vitals: Period Temp Pulse Resp BP Sys/Chavarria Pulse Ox Last 24 Hr 96.8 F-97.9 F 84-108 10-29 94-210/61-138 94-100 Results - Labs CBC & BMP: 12/15/16 06:10 12/15/16 02:35
--- NOTE | 2016-12-15 11:14 | Post Interventional Procedure ---
Pre-op diagnosis: difficult venous access Post-op diagnosis: same Procedure: right IJ central venous catheter placement Contrast: none Flouroscopy: 0.1 min Radiologist: Hipolito Garcia Anesthesia: local Specimens: none sent Estimated blood loss: none Complications: none Condition: stable Description/Findings: widely patent right IJ 7 Fr triple lumen catheter placement with tip at Cavoatrial junction and ready for use Assessment and Plan - Time spent with patient Time spent with patient: Less than 30 minutes
--- NOTE | 2016-12-15 11:15 | Interventional Radiology Rpt ---
IR urokinase cease thromlysis, IR stent place arterial inital, IR stent place arterial inital Bilateral common iliac artery stent placement Clinical Information: 41-year-old female with recurrent bilateral iliac thrombosis/occlusion. Patient is now status post overnight thrombolysis with TPA and presents for repeat evaluation. Physician: Dr. Garcia Procedure: The patient was advised of the benefits, risks, and alternatives of the procedure and informed consent was obtained. A time out was performed with verification of the patient's name, MRN, site of procedure, and type of procedure to be performed. The patient was positioned in the supine position on the angiographic table. The site was prepped and draped in the usual sterile fashion. Local anesthesia only was used for the procedure. A supervisor slate splitting radiograph reveals no relevant abnormality. The right groin 6 Fr sheath was accessed with the Glidewire and the Tegtmeyer catheter. Initially, the Tegtmeyer catheter apparently entered a small dissection flap at the distal aorta. However, there is brisk flow into the true lumen with minimal residual filling defect at the proximal left common iliac artery and otherwise relatively widely patent bilateral common and external iliac arteries. Brief arteriogram through the right groin sheath demonstrates no residual filling defects within the external iliac artery or common femoral artery. Brief arteriogram via the left groin sheath demonstrates relatively brisk antegrade flow around the sheath into the deep and muscular branches of the femoral artery. The thrombolytic catheter was removed and a Tegtmeyer catheter was placed to the level of the left common femoral artery. Brief arteriogram demonstrates multiple muscular branches throughout the left thigh. The proximal deep femoral branch demonstrates markedly improved flow to the muscular branches with limited distal runoff likely due to small residual thrombus. The Tegtmeyer catheter was withdrawn and the left external iliac artery was catheterized. Arteriogram demonstrates brisk antegrade flow to the left common femoral artery. There is mild-moderate narrowing at the level of the left common femoral arterial sheath. There is no suggestion of dissection or other focal abnormality within the iliac artery. There was some difficulty advancing the Tegtmeyer catheter into the true lumen on the right. Subsequently, arteriogram demonstrates brisk filling of the aorta and runoff into the bilateral common iliac arteries. A small residual filling defect at the left common iliac artery may represent focal plaque or chronic adherent thrombus not resolved by the overnight TPA. Measurements were obtained. Again, the left groin access also had difficulty with accessing the true lumen. This was subsequently obtained and flush aortogram demonstrates small area of injury at the distal aorta near the left common iliac artery. Otherwise there is widely patent brisk flow into the celiac, superior mesenteric arteries, mesenteric and jejunal branches, bilateral renal arteries and inferior mesenteric artery seen on the aortogram. At this point, it was felt appropriate to pursue stenting of the bilateral common iliac arteries. Measurements were obtained. 8 x 27 mm express balloon mounted stent was selected for the right common iliac artery. 8 x 37 mm express balloon mounted stent was selected for the left common iliac artery. These balloons were placed in a "kissing" position within the distal aorta and inflated to 7 kike. Balloons were then deflated and stent positioning was confirmed with brief arteriogram. Subsequently, a flush aortogram was performed via the pigtail catheter. Again, there is brisk filling of the renal arteries and inferior mesenteric artery with multiple collaterals to the femoral vasculature. The distal aorta is essentially widely patent with widely patent bilateral common iliac arteries and brisk runoff to both common femoral arteries. At this point, it was felt that the patient had reached maximal mild facet from thrombolysis and stenting of the iliac arteries. Both groin sheaths were removed and Angio-Seal devices were placed at puncture sites to obtain hemostasis. Sterile dressings were applied. EBL: < 5 mL. Complications: None. Fluoroscopy time: 11.4 minutes. Total number of images for the procedure: 395 Conclusion: 1. Successful thrombolysis and recanalization of the bilateral common and external iliac arteries with marked straight line flow into the external iliac and common femoral arteries bilaterally. 8 mm balloon mounted stents were placed at both common iliac arteries as detailed above. This patient likely needs at least 1 month of full anticoagulation with Lovenox and transition to one of the novel agents such as Elliquis. Patient also needs lifelong Plavix. 2. Significantly improved runoff within the proximal left thigh although the superficial femoral artery remains chronically occluded. Following thrombolysis there is marked improvement with flow through multiple muscular branches. Continued clinical follow-up and Doppler ultrasound evaluation of the distal pulses within the left lower extremity is recommended. A femoropopliteal bypass is unfortunately still not out of the question. 3. Aortogram demonstrates the celiac and superior mesenteric arteries to be essentially widely patent with multiple patent jejunal branch vessels. The previously suggested small SMA thrombus therefore is considered of little clinical significance at this time. PROCEDURE INTERPRETED AT [facility] DEPARTMENT OF RADIOLOGY Final Report Signed by: Hipolito Garcia
--- NOTE | 2016-12-15 11:26 | Interventional Radiology Rpt ---
IR cvc insert nt >5, IR fluoro guide cv cath, US guide vascular access Central Line placement using fluoroscopic and ultrasound guidance Ultrasound of the right neck Clinical Information: 41-year-old female status post trauma lysis for bilateral iliac artery thrombosis/occlusion. Patient has difficult veins and has developed a large hematoma at the right forearm from prior venipuncture. Central line is requested for stable venous access while admitted. Physician[s]: Dr. Garcia Procedure: The patient was advised of the benefits, risks, and alternatives of the procedure and informed consent was obtained. A time out was performed with verification of the patient's name, MRN, site of procedure, and type of procedure to be performed. The patient was positioned in the supine position on the angiographic table. The site was prepped and draped in the usual sterile fashion. Local anesthesia only was used for the procedure. A coke crusher operator radiograph reveals no relevant abnormality. The neck and anterior chest wall were anesthetized with lidocaine. The right internal jugular vein was accessed using a microintroducer needle via a lateral approach with ultrasound guidance. Ultrasound image capture of vascular access was obtained for the patient's permanent record. A 0.018" cope wire was advanced into the superior vena cava, the needle was removed and a microintroducer sheath was placed. An Amplatz wire was then passed into the inferior vena cava. An incision was made at the puncture site using a scalpel. The tract was serially dilated over the wire. A 7 Portuguese triple lumen 20 cm Arrow central venous catheter was placed with its tip at the cavoatrial junction under fluoroscopic guidance. The ports aspirate and flush freely. The catheter was sutured in place using 3-0 silk suture and covered with a sterile dressing. The patient tolerated the procedure well and was returned to the PRU in stable condition. EBL: < 5 mL. Complications: None. Total Fluoroscopy Time: 0.1 minutes. Total number of images for the procedure: 2 Conclusion: Successful placement of a triple lumen central venous catheter via the right internal jugular vein. The catheter is ready for immediate use. PROCEDURE INTERPRETED AT [facility] DEPARTMENT OF RADIOLOGY Final Report Signed by: Hipolito Garcia
[2016-12-15] MEDS: ALTEPLASE 24 MG in SODIUM CHLORIDE 0.9% 480 ML IV SCH (11:53)
[2016-12-15] MEDS: HEPARIN/NACL 0.9% 2 UNITS/ML 500 ML IV SCH (12:07)
--- NOTE | 2016-12-15 13:37 | Hospitalist Progress Note ---
Assessment and Plan (1) Upper GI bleed Status: Acute Assessment and plan: 1)Bleeding while anticoagulated yesterday with plavix, heprin infusion and TPA- H&h dropped but no large volume of hemoptysis at this point. When Gi did EGD she did not have GIB, but had blood from her lungs. She continues to cough up blood. Now after stents she is on lovenox and plavix and asa. 2)hypercoagulable state with recurrent clots in iliac arteries, sma and left ventricle mural thrombus- lupus anticoagulant still pending, other test negative. 3)HTN- under better control, monitor. Hydralazine and coreg increased. Current Visit: Yes (2) Hypertension Status: Chronic Current Visit: No Qualifiers: Hypertension type: essential hypertension Qualified Code(s): I10 - Essential (primary) hypertension (3) Mural thrombus of heart Status: Acute Current Visit: No Hospitalist: Subjective Interval history: Mrs Desai is doing well this morning after having the iliac stents placed. I have spoken ot Dr Garcia and Dr Ivey to coordinate care today. She is off TPA and systemic heparin, and will continue plavix, lovenox. She continues to cough up blood. Her H&H dropped overnight. Exam - Constitutional Vitals: Period Temp Pulse Resp BP Sys/Chavarria Pulse Ox Last 24 Hr 96.8 F-97.9 F 84-108 10-29 94-210/61-138 94-100 General appearance: no acute distress, over weight - Head Head exam: Present: normocephalic, atraumatic - Eye Eye exam: Present: EOMI. Absent: scleral icterus - Respiratory Respiratory exam: Present: clear to auscultation bilaterally - Cardiovascular Cardiovascular exam: Present: regular rate and rhythm - GI/Abdominal GI/Abdominal exam: Present: normal bowel sounds, soft. Absent: tenderness - Extremities Exam Extremities exam: Present: other (diminished pulses). Absent: edema - Neurological Exam Neurological exam: Present: alert, oriented X3 - Skin Skin exam: Present: warm, dry Results - Labs CBC & BMP: 12/15/16 06:10 12/15/16 02:35 Lab Results: I have reviewed the past 24 hour labs Specialty Discharge - Follow Up or Referrals Follow up with: Tamiko Washington MD [Physician] - 12/21/16 1:20 pm
[2016-12-15 14:34] LABS: Hematocrit 20.5 VOL% (35.7-47.0); Hemoglobin 6.9 GM/DL (12.0-16.0)
[2016-12-15] MEDS ORDERED: SODIUM CHLORIDE 0.9% 250 ML IV PRN (17:07)
--- NOTE | 2016-12-15 17:18 | Event Note ---
Incision sites are clean and dry and intact with no hematomas in the groin areas bilaterally. The right dorsalis pedis pulse remained palpable. Left dorsalis pedis pulse was not palpable but is dopplerable. The left ankle/foot remains slightly caudal to the touch but the patient is otherwise neurologically intact with no significantly increased pain. Hopefully, with stenting, the increased pressures will continue to improve the overall supply to the left ankle/foot. Patient is in good spirits and Lovenox and Plavix have been restarted.
[2016-12-15] MEDS: INSULIN ASPART PROTAMINE/ASPART 70/30 100 UNIT/ML SUBCUT SCH ×2 (17:30→21:42)
[2016-12-15] MEDS: ENOXAPARIN 80 MG/0.8 ML SYRINGE SUBCUT SCH (17:31)
[2016-12-15] MEDS: ONDANSETRON 4 MG/2 ML VIAL IV PRN (19:35)
[2016-12-15] MEDS: ATORVASTATIN 20 MG TABLET PO SCH (20:24)
[2016-12-15] MEDS: ZALEPLON 5 MG CAPSULE PO PRN (20:25)
[2016-12-16] MEDS: RACEPINEPHRINE 0.5 ML NEB RESP TX SCH ×2 (00:52→07:36)
[2016-12-16] MEDS: METOCLOPRAMIDE 10 MG/2 ML VIAL IV SCH ×4 (01:26→17:14)
[2016-12-16] MEDS: HYDROmorphone 2 MG/1 ML VIAL IV PRN ×5 (03:53→21:20)
[2016-12-16 05:19] LABS: Basophils % 0.3 % (0.0-0.8); Eosinophils # 0.1 10*3/uL (0.0-0.87); Eosinophils % 1.1 % (0.00-10.9); Hematocrit 27.5 VOL% (35.7-47.0); Hemoglobin 9.5 GM/DL (12.0-16.0); Immature Granulocytes % 0.4 %; Immature Granulocytes Absolute 0.05 #; Lymphocytes # 2.1 10*3/uL (1.4-4.0); Lymphocytes % 17.3 % (21.3-54.2); Mean Corpuscular HGB Conc 34.5 GM/DL (32-36); Mean Corpuscular Hemoglobin 31 PG (27-34); Mean Corpuscular Volume 89.6 FL (87-102); Mean Platelet Volume 10.7 FL (9.6-12.0); Monocytes % 8.6 % (1.7-12.7); Neutrophils # 8.6 10*3/uL (1.4-7.4); Neutrophils % 72.3 % (38.7-73.9); Platelet Count 190 T/CUMM (130-400); Red Blood Count 3.07 MC/CUMM (3.8-5.5); Red Cell Distribution Width 14.8 % (9.3-17.3); White Blood Count 11.9 T/CUMM (4-12)
[2016-12-16 06:28] LABS: Osmolality,Calculated 271.8 MOS/KG (273-304); Potassium 3.1 MMOL/L (3.5-5.1)
[2016-12-16] MEDS: POTASSIUM CHLORIDE 20 MEQ TABLET PO PRN ×5 (06:42→21:06)
[2016-12-16] MEDS: SODIUM CHLORIDE 0.9% 1,000 ML IV SCH ×3 (07:05→20:28)
[2016-12-16] MEDS ORDERED: RACEPINEPHRINE 0.5 ML NEB RESP TX PRN (07:42)
--- NOTE | 2016-12-16 07:45 | Pulmonology Progress Note ---
Pulmonary - PN: Subj Interval history: This 41-year-old lady started having hemoptysis after getting anticoagulants for arterial thrombosis. Hemoptysis has subsided. Her blood pressure is a little high. I will change the racemic epinephrine to as needed. Exam (Progress Note) - Constitutional Vitals: Period Temp Pulse Resp BP Sys/Chavarria Pulse Ox Last 24 Hr 97.2 F-99.1 F 90-109 8-25 115-210/58-138 91-100 Exam: Patient's alert seems oriented. Vital signs normal, except systolic blood pressure 150-160. Pupils react to light. Throat is clear. Neck supple no bruits. Chest is clear equal breath sounds. Heart normal rate and rhythm no murmurs. Abdomen soft nontender no masses. Extremities no clubbing cyanosis edema. Results - Labs CBC & BMP: 12/16/16 04:30 12/16/16 04:30 Lab Results: I have reviewed the past 24 hour labs Assessment and Plan (1) Hemoptysis Status: Acute Assessment and plan: Likely related to anticoagulants. This has subsided. Will change racemic epinephrine to as needed. Current Visit: Yes (2) Cigarette nicotine dependence, uncomplicated Status: Chronic Assessment and plan: Discussed the need to discontinue again. Current Visit: No (3) Left ventricular thrombus Status: Acute Assessment and plan: On anticoagulants. Aspirin Plavix. Current Visit: No (4) Peripheral vascular disease Status: Acute Assessment and plan: Defer to surgery Current Visit: Yes Specialty Discharge - Follow Up or Referrals Follow up with: Tamiko Washington MD [Physician] - 12/21/16 1:20 pm
[2016-12-16] MEDS: INSULIN ASPART PROTAMINE/ASPART 70/30 100 UNIT/ML SUBCUT SCH ×4 (07:54→21:01)
--- NOTE | 2016-12-16 07:56 | Hospitalist Progress Note ---
Assessment and Plan - Time spent with patient Time spent with patient: Less than 30 minutes (1) Hemoptysis Status: Acute Assessment and plan: Patient had noted hemoptysis after receiving TPA and being on multiple anticoagulants. She has been seen by pulmonary. She is having no further hemoptysis and appears to be stable at this point. She is now continued on Lovenox, Plavix, aspirin. She has a history of hypercoagulable state with recurrent clots. She is been followed by hematology/oncology as well as vascular surgery. Continue current therapy and await further recommendations. She appears to be stable at this time. Can transfer to the floor when all agree. Current Visit: Yes (2) Diabetes Status: Chronic Assessment and plan: Blood sugars continue to run in the 200 and 300s. Continue to optimize therapy while here. 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 Current Visit: No Qualifiers: Hypertension type: essential hypertension Qualified Code(s): I10 - Essential (primary) hypertension (4) Mural thrombus of heart Status: Chronic Current Visit: No (5) Dyslipidemia Status: Chronic Current Visit: No Hospitalist: Subjective Interval history: Chart reviewed and patient examined. 41-year-old female with hyper coagulable state with recurrent clots who recently underwent administration of TPA followed by heparin infusion and subsequently had hemoptysis. She did have upper endoscopy by GI but there is no evidence of GI bleeding noted. It was felt this was coming from her lungs. She is now off her heparin but being maintained on Lovenox Plavix and aspirin. She denies any chest pain, shortness of breath, recurrent hemoptysis. Exam - Constitutional Vitals: Period Temp Pulse Resp BP Sys/Chavarria Pulse Ox Last 24 Hr 97.2 F-99.1 F 90-109 8-25 115-210/58-138 91-100 General appearance: no acute distress - Head Head exam: Present: normocephalic, atraumatic - Eye Eye exam: Present: EOMI Pupils: Present: ANTIONETTE - ENT ENT exam: Present: normal exam - Neck Neck exam: Present: normal inspection - Respiratory Respiratory exam: Present: clear to auscultation bilaterally - Cardiovascular Cardiovascular exam: Present: regular rate and rhythm - GI/Abdominal GI/Abdominal exam: Present: normal bowel sounds, soft. Absent: mass, tenderness , rebound - Extremities Exam Extremities exam: Absent: calf tenderness, edema - Neurological Exam Neurological exam: Present: alert, oriented X3, CN II-XII intact. Absent: motor sensory deficit - Psychiatric Psychiatric exam: Present: normal affect, normal mood. Absent: agitated, anxious - Skin Skin exam: Present: warm, dry. Absent: erythema Results - Labs CBC & BMP: 12/16/16 04:30 12/16/16 04:30 Lab Results: I have reviewed the past 24 hour labs Specialty Discharge - Follow Up or Referrals Follow up with: Tamiko Washington MD [Physician] - 12/21/16 1:20 pm
[2016-12-16] MEDS: METOPROLOL TARTRATE 50 MG TABLET PO SCH ×2 (07:59→21:01)
[2016-12-16] MEDS: NICOTINE 21 MG/24 HR PATCH TRANSDERM SCH (07:59)
[2016-12-16] MEDS: glyBURIDE 5 MG TABLET PO SCH ×2 (07:59→17:14)
[2016-12-16] MEDS: PANTOPRAZOLE 40 MG TABLET PO SCH (08:00)
[2016-12-16] MEDS: amLODIPine 10 MG TABLET PO SCH (08:00)
[2016-12-16] MEDS: CLOPIDOGREL 75 MG TABLET PO SCH (08:00)
[2016-12-16] MEDS: ENOXAPARIN 80 MG/0.8 ML SYRINGE SUBCUT SCH ×2 (08:01→21:01)
[2016-12-16] MEDS: CARVEDILOL 25 MG TABLET PO SCH ×2 (08:01→21:01)
[2016-12-16] MEDS: LISINOPRIL 20 MG TABLET PO SCH (08:01)
[2016-12-16] MEDS: ASPIRIN EC 81 MG TABLET PO SCH (08:02)
[2016-12-16] MEDS: ATORVASTATIN 20 MG TABLET PO SCH (21:01)
[2016-12-16] MEDS: ZALEPLON 5 MG CAPSULE PO PRN (21:20)
[2016-12-17] MEDS: METOCLOPRAMIDE 10 MG/2 ML VIAL IV SCH ×4 (00:37→17:12)
[2016-12-17] MEDS: POTASSIUM CHLORIDE 20 MEQ TABLET PO PRN ×2 (00:38→08:05)
[2016-12-17] MEDS: HYDROmorphone 2 MG/1 ML VIAL IV PRN ×4 (02:55→20:46)
[2016-12-17 05:38] LABS: Basophils % 0.2 % (0.0-0.8); Eosinophils # 0.1 10*3/uL (0.0-0.87); Eosinophils % 0.8 % (0.00-10.9); Hematocrit 25.6 VOL% (35.7-47.0); Hemoglobin 8.9 GM/DL (12.0-16.0); Immature Granulocytes % 0.5 %; Immature Granulocytes Absolute 0.05 #; Lymphocytes # 2.1 10*3/uL (1.4-4.0); Lymphocytes % 18.9 % (21.3-54.2); Mean Corpuscular HGB Conc 34.8 GM/DL (32-36); Mean Corpuscular Hemoglobin 31 PG (27-34); Mean Corpuscular Volume 90.1 FL (87-102); Mean Platelet Volume 10.2 FL (9.6-12.0); Monocytes # 1.3 10*3/uL (0.11-0.8); Monocytes % 11.6 % (1.7-12.7); Neutrophils # 7.5 10*3/uL (1.4-7.4); Platelet Count 195 T/CUMM (130-400); Red Blood Count 2.84 MC/CUMM (3.8-5.5); Red Cell Distribution Width 14.8 % (9.3-17.3)
[2016-12-17 06:06] LABS: Calcium 7.8 MG/DL (8.5-10.1); Potassium 3.7 MMOL/L (3.5-5.1)
--- NOTE | 2016-12-17 07:20 | Pulmonology Progress Note ---
Pulmonary - PN: Subj Interval history: This 41-year-old lady started having hemoptysis after getting anticoagulants for arterial thrombosis. Hemoptysis has subsided. Her blood pressure is a little high. I will change the racemic epinephrine to as needed. 12/17/2016 no further hemoptysis. Patient is stable from pulmonary standpoint. Exam (Progress Note) - Constitutional Vitals: Period Temp Pulse Resp BP Sys/Chavarria Pulse Ox Last 24 Hr 98.1 F-99.1 F 82-116 9-20 111-175/53-93 90-100 Exam: Patient's alert seems oriented. Vital signs normal, except systolic blood pressure 140. Pupils react to light. Throat is clear. Neck supple no bruits. Chest is clear equal breath sounds. Heart normal rate and rhythm no murmurs. Abdomen soft nontender no masses. Extremities no clubbing cyanosis edema. Results - Labs CBC & BMP: 12/17/16 05:30 12/17/16 05:30 Lab Results: I have reviewed the past 24 hour labs Assessment and Plan (1) Hemoptysis Status: Acute Assessment and plan: Likely related to anticoagulants. This has subsided. Will change racemic epinephrine to as needed. 12/17/2016 no further hemoptysis. On as needed racemic epi. Current Visit: Yes (2) Cigarette nicotine dependence, uncomplicated Status: Chronic Assessment and plan: Discussed the need to discontinue again. Current Visit: No (3) Left ventricular thrombus Status: Acute Assessment and plan: On anticoagulants. Aspirin Plavix. 12/17/2016 defer to cardiology on stepping up anticoagulants. Current Visit: No (4) Peripheral vascular disease Status: Acute Assessment and plan: Defer to surgery Current Visit: Yes Specialty Discharge - Follow Up or Referrals Follow up with: Tamiko Washington MD [Physician] - 12/21/16 1:20 pm
[2016-12-17] MEDS: INSULIN ASPART PROTAMINE/ASPART 70/30 100 UNIT/ML SUBCUT SCH ×4 (08:04→20:54)
[2016-12-17] MEDS: NICOTINE 21 MG/24 HR PATCH TRANSDERM SCH (08:04)
[2016-12-17] MEDS: CLOPIDOGREL 75 MG TABLET PO SCH (08:05)
[2016-12-17] MEDS: LISINOPRIL 20 MG TABLET PO SCH (08:05)
[2016-12-17] MEDS: PANTOPRAZOLE 40 MG TABLET PO SCH (08:05)
[2016-12-17] MEDS: ASPIRIN EC 81 MG TABLET PO SCH (08:05)
[2016-12-17] MEDS: CARVEDILOL 25 MG TABLET PO SCH ×2 (08:05→20:53)
[2016-12-17] MEDS: glyBURIDE 5 MG TABLET PO SCH ×2 (08:05→17:12)
[2016-12-17] MEDS: METOPROLOL TARTRATE 50 MG TABLET PO SCH ×2 (08:05→20:53)
[2016-12-17] MEDS: ENOXAPARIN 80 MG/0.8 ML SYRINGE SUBCUT SCH ×2 (08:06→20:54)
[2016-12-17] MEDS: amLODIPine 10 MG TABLET PO SCH (08:06)
--- NOTE | 2016-12-17 08:49 | Hospitalist Progress Note ---
Assessment and Plan - Time spent with patient Time spent with patient: Less than 30 minutes (1) Hemoptysis Status: Acute Assessment and plan: Patient had noted hemoptysis after receiving TPA and being on multiple anticoagulants. She has been seen by pulmonary. She is having no further hemoptysis and appears to be stable at this point. She is now continued on Lovenox, Plavix, aspirin. She has a history of hypercoagulable state with recurrent clots. She is been followed by hematology/oncology as well as vascular surgery. Continue current therapy and await further recommendations. She appears to be stable at this time. Can transfer to the floor when all agree. 12/17/16: No further hemoptysis and she remained stable from that standpoint. Current Visit: Yes (2) Diabetes Status: Chronic Assessment and plan: Blood sugars continue to run in the 200 and 300s. Continue to optimize therapy while here. 12/17/16: Blood sugars slightly improving. Oral agents were reinitiated yesterday. We will continue to watch closely. 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 Current Visit: No Qualifiers: Hypertension type: essential hypertension Qualified Code(s): I10 - Essential (primary) hypertension (4) Mural thrombus of heart Status: Chronic Current Visit: No (5) Dyslipidemia Status: Chronic Current Visit: No Hospitalist: Subjective Interval history: Patient is doing fairly well. She states that she is only having liquids and does not want to progress her diet. She states that she does have some weakness and attempted to walk yesterday but had significant difficulty secondary to her weakness. She denies any chest pain or shortness of breath. Exam - Constitutional Vitals: Period Temp Pulse Resp BP Sys/Chavarria Pulse Ox Last 24 Hr 98.1 F-99.8 F 82-116 9-20 111-175/53-93 90-99 General appearance: no acute distress - Head Head exam: Present: normocephalic, atraumatic - Eye Eye exam: Present: EOMI Pupils: Present: ANTIONETTE - ENT ENT exam: Present: normal exam - Neck Neck exam: Present: normal inspection - Respiratory Respiratory exam: Present: clear to auscultation bilaterally. Absent: rales, rhonchi, wheezes - Cardiovascular Cardiovascular exam: Present: regular rate and rhythm - GI/Abdominal GI/Abdominal exam: Present: normal bowel sounds, soft. Absent: mass, tenderness , rebound - Extremities Exam Extremities exam: Absent: calf tenderness, edema - Neurological Exam Neurological exam: Present: alert, oriented X3, CN II-XII intact. Absent: motor sensory deficit - Psychiatric Psychiatric exam: Present: normal affect, normal mood. Absent: agitated, anxious - Skin Skin exam: Present: warm, dry. Absent: erythema Results - Labs CBC & BMP: 12/17/16 05:30 12/17/16 05:30 Lab Results: I have reviewed the past 24 hour labs Specialty Discharge - Follow Up or Referrals Follow up with: Tamiko Washington MD [Physician] - 12/21/16 1:20 pm
[2016-12-17] MEDS: DOCUSATE SODIUM 100 MG CAPSULE PO SCH ×2 (09:23→20:53)
[2016-12-17] MEDS: SODIUM CHLORIDE 0.9% 1,000 ML IV SCH (09:48)
[2016-12-17] MEDS: ATORVASTATIN 20 MG TABLET PO SCH (20:53)
[2016-12-17] MEDS: ZALEPLON 5 MG CAPSULE PO PRN (20:54)
[2016-12-18] MEDS: SODIUM CHLORIDE 0.9% 1,000 ML IV SCH ×2 (00:03→00:35)
[2016-12-18] MEDS: HYDROmorphone 2 MG/1 ML VIAL IV PRN ×7 (00:34→23:08)
[2016-12-18] MEDS: METOCLOPRAMIDE 10 MG/2 ML VIAL IV SCH ×5 (00:35→23:11)
[2016-12-18 06:13] LABS: Basophils % 0.3 % (0.0-0.8); Eosinophils # 0.1 10*3/uL (0.0-0.87); Eosinophils % 1.2 % (0.00-10.9); Hematocrit 25.7 VOL% (35.7-47.0); Hemoglobin 8.7 GM/DL (12.0-16.0); Immature Granulocytes % 0.5 %; Immature Granulocytes Absolute 0.05 #; Lymphocytes # 2.1 10*3/uL (1.4-4.0); Lymphocytes % 18.9 % (21.3-54.2); Mean Corpuscular HGB Conc 33.9 GM/DL (32-36); Mean Corpuscular Hemoglobin 31 PG (27-34); Mean Corpuscular Volume 91.1 FL (87-102); Mean Platelet Volume 10.7 FL (9.6-12.0); Monocytes # 1.1 10*3/uL (0.11-0.8); Monocytes % 10.5 % (1.7-12.7); Neutrophils # 7.4 10*3/uL (1.4-7.4); Neutrophils % 68.6 % (38.7-73.9); Platelet Count 238 T/CUMM (130-400); Red Blood Count 2.82 MC/CUMM (3.8-5.5); Red Cell Distribution Width 14.6 % (9.3-17.3); White Blood Count 10.8 T/CUMM (4-12)
[2016-12-18 06:26] LABS: Osmolality,Calculated 268.8 MOS/KG (273-304); Potassium 3.3 MMOL/L (3.5-5.1)
[2016-12-18] MEDS: POTASSIUM CHLORIDE 20 MEQ TABLET PO PRN ×4 (06:41→18:17)
--- NOTE | 2016-12-18 07:19 | Oncology Progress Note ---
Oncology Subjective PN Interval history: So far, we have not proven that this patient has a hypercoagulable condition related to clotting abnormalities. The patient has extensive arteriosclerotic cardiovascular disease. It is very likely that we will not be able to establish that the patient has "hypercoagulable" disease because she is going to need to stay on anticoagulants the rest of her life. In addition, would strongly encourage checking a comprehensive metabolic profile other than a basic metabolic profile on this patient since liver dysfunction is a strong contributor that affects blood clotting. I am ordering a comprehensive metabolic profile for today. The lab should be able to run it off the blood has already been drawn. Lab work today includes a white cell count of 10,800 with a hemoglobin of 8.7 and a platelet count of 238,000. The absolute neutrophil count today is 7400. The fibrinogen is elevated, reflecting inflammation. If the fibrinogen begins to drop, we need to check a d-dimer. Exam - Constitutional Vitals: Period Temp Pulse Resp BP Sys/Hcavarria Pulse Ox Last 24 Hr 97.9 F-98.9 F 81-109 8-27 107-168/55-84 91-100 Results - Labs CBC & BMP: 12/18/16 05:35 12/18/16 05:35 Specialty Discharge - Follow Up or Referrals Follow up with: Tamiko Washington MD [Physician] - 12/21/16 1:20 pm
[2016-12-18 07:49] LABS: Albumin 2.1 G/DL (3.4-5.0); Bilirubin,Total 0.7 MG/DL (0.2-1.0); Calcium 8.1 MG/DL (8.5-10.1); Osmolality,Calculated 268.8 MOS/KG (273-304); Potassium 3.3 MMOL/L (3.5-5.1); Total Protein 5.6 G/DL (6.4-8.3)
[2016-12-18] MEDS: INSULIN ASPART PROTAMINE/ASPART 70/30 100 UNIT/ML SUBCUT SCH ×4 (08:00→21:38)
[2016-12-18] MEDS: glyBURIDE 5 MG TABLET PO SCH ×2 (08:01→16:57)
[2016-12-18] MEDS: CARVEDILOL 25 MG TABLET PO SCH ×2 (08:01→21:38)
[2016-12-18] MEDS: DOCUSATE SODIUM 100 MG CAPSULE PO SCH ×2 (08:01→21:38)
[2016-12-18] MEDS: METOPROLOL TARTRATE 50 MG TABLET PO SCH ×2 (08:01→21:38)
[2016-12-18] MEDS: LISINOPRIL 20 MG TABLET PO SCH (08:01)
[2016-12-18] MEDS: CLOPIDOGREL 75 MG TABLET PO SCH (08:01)
[2016-12-18] MEDS: ASPIRIN EC 81 MG TABLET PO SCH (08:01)
[2016-12-18] MEDS: PANTOPRAZOLE 40 MG TABLET PO SCH (08:01)
[2016-12-18] MEDS: ENOXAPARIN 80 MG/0.8 ML SYRINGE SUBCUT SCH ×2 (08:01→21:38)
[2016-12-18] MEDS: amLODIPine 10 MG TABLET PO SCH (08:01)
[2016-12-18] MEDS: NICOTINE 21 MG/24 HR PATCH TRANSDERM SCH (08:02)
--- NOTE | 2016-12-18 09:03 | XRay Report ---
Portable chest. Indication: Hemoptysis. Comparison: December 15, 2016. The heart and mediastinal contours are unchanged. The pulmonary vasculature is normal. The lung andre are free of infiltrate. No pneumothorax or pleural effusion. There is a right IJ line in place. Its distal tip is at the junction of the SVC and right atrium. Impression: No acute abnormality. PROCEDURE INTERPRETED AT [facility] DEPARTMENT OF RADIOLOGY Final Report Signed by: Dr. Imani Collado
--- NOTE | 2016-12-18 09:47 | Event Note ---
Ms. Desai is more stable but still complains of pain and numbness in her left leg the left lower leg is cooler than the right I do not burr picker any Doppler signals in the left dorsalis pedis and posterior tibial. The leg is not acutely ischemic but certainly chronically ischemic. Her vital signs and general appearance seem to be much more stable than they were with better control of her diabetes and blood pressure. I think it reasonable that we go ahead and do a femoral-popliteal bypass now to try to maximize the flow into the left lower leg. She did have the reconstitution above the knee of the popliteal artery but I think that a vein bypass is going to be most appropriate for her with the degree of clotting that she has demonstrated. I have explained to her that option is just trying to go along as were doing which does not seem to be improving her symptoms I do not think there is any nonoperative approaches that would improve the symptoms and I think that femoral -popliteal bypass is best done now. I will recommend that with vein explained the possibility of amputation bleeding infection and swelling all of which she understands and accepts also with blood count as low as this she will require further transfusion she agrees with the plan and I will schedule for tomorrow
[2016-12-18] MEDS ORDERED: POTASSIUM CHLORIDE 20 MEQ TABLET PO SCH (10:00)
--- NOTE | 2016-12-18 10:02 | Hospitalist Progress Note ---
Assessment and Plan (1) Severe peripheral arterial disease Status: Chronic Assessment and plan: Femoral-popliteal bypass scheduled for tomorrow with Dr. Daily. Continue Lovenox milligram per kg subcu twice daily. 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 No acute events overnight. Case discussed with nursing staff. Labs reviewed. Surgery notes reviewed. Plan for operative intervention tomorrow by Dr. Gibson Exam - Constitutional Vitals: Period Temp Pulse Resp BP Sys/Chavarria Pulse Ox Last 24 Hr 97.9 F-98.9 F 81-109 8-27 107-168/55-84 92-100 Exam: Constitutional System: No distress. No tremulousness. Head: Normocephalic, atraumatic. Ears, Nose and Throat System: No pain or tenderness. No epistaxis or discharge Eyes System: Pupils equal, round, and reactive. Extraocular muscles intact. Neck: Supple, without adenopathy, No jugular venous distention. No thyromegaly, neck mass, or prior surgery apparent. Respiratory System: Chest clear to auscultation. Cardiovascular System: Heart with regular rate and rhythm. No murmur. GI System: Abdomen soft, nontender. Normo active bowel sounds present. Musculoskeletal System: limbs with no pedal edema. Reduced absent pulses left lower extremity. Temperature difference between right and left leg with the left leg being slightly cooler to touch. Neurological System: No discernable sensory deficit. No aphasia Psychiatric System: Conversation is rational Results - Labs CBC & BMP: 12/18/16 05:35 12/18/16 05:35 Lab Results: I have reviewed the past 24 hour labs Specialty Discharge - Follow Up or Referrals Follow up with: Tamiko Washington MD [Physician] - 12/21/16 1:20 pm
--- NOTE | 2016-12-18 10:27 | Pulmonology Progress Note ---
Pulmonary - PN: Subj Interval history: This is a 41-year-old black female whom I saw in pulmonary consultation on 2016. This patient had acute hemoptysis and this was felt to be secondary to the anticoagulation she was receiving. The amount of anticoagulation was decreased and so far there has been no more hemoptysis. Her chest x-ray appears normal this morning. Patient's main problems are. 1. Possible hypercoagulable state. Workup has been normal. 2. Left ventricular thrombus and possible thrombotic emboli. 3. Peripheral artery disease with occlusion. Plans are to place stents. 4. Past history of stroke thought to be secondary to diabetes, heavy cigarette smoking and high blood pressure. H&H is dropped 8.6/25.1. White count is 9000 platelets at 249,000. INR is 1.1. Electrolytes are normal. Creatinine is dropped from 1.60-1.30. Urinalysis shows no evidence of infection. 12/14/2016. Doppler venograms are negative for deep venous thrombophlebitis Chest x-ray. 12/15/2016. No abnormalities. Chest is clear. No hemoptysis. 12/18/2016 chest x-ray shows no heart failure no infiltrates. Oxygenation is acceptable. Chest is clear patient is alert and oriented and breathing well. There is been no hemoptysis and a number of days. I will sign off. Reconsult me whenever needed. Physical exam. Vital signs. See below Face. Symmetrical. No edema the lips or tongue. Psychiatric. Alert oriented. Neurologic. Cranial nerves appear to be intact and there is some movement of all 4 extremities. Neck. Symmetrical no meningismus. Chest. Clear Heart. No gallop Abdomen. Rare bowel sounds. Extremities. As per Dr. Louie The remainder the physical exam is noncontributory Plan. 12/15/2006 1. Watch for recurrence of hemoptysis. 2. Daily x-ray for few days. 12/18/2016 1. See today's note above. Hemoptysis resolved. Chest x-ray normal. Good oxygenation. 2. I will sign off. Reconsult when needed Exam (Progress Note) - Constitutional Vitals: Period Temp Pulse Resp BP Sys/Chavarria Pulse Ox Last 24 Hr 97.9 F-98.9 F 81-109 8- 107-168/55-84 92-100 Results - Labs CBC & BMP: 12/18/16 05:35 12/18/16 05:35 Specialty Discharge - Follow Up or Referrals Follow up with: Tamiko Washington MD [Physician] - 12/21/16 1:20 pm
[2016-12-18] MEDS: ATORVASTATIN 20 MG TABLET PO SCH (21:38)
[2016-12-18] MEDS: ZALEPLON 5 MG CAPSULE PO PRN (21:38)
[2016-12-19] MEDS: HYDROmorphone 2 MG/1 ML VIAL IV PRN ×7 (02:11→23:35)
[2016-12-19] MEDS: METOCLOPRAMIDE 10 MG/2 ML VIAL IV SCH ×4 (05:33→23:09)
[2016-12-19] MEDS: INSULIN ASPART PROTAMINE/ASPART 70/30 100 UNIT/ML SUBCUT SCH ×4 (07:34→20:10)
[2016-12-19] MEDS: glyBURIDE 5 MG TABLET PO SCH ×2 (08:29→17:05)
[2016-12-19] MEDS: LISINOPRIL 20 MG TABLET PO SCH (09:00)
[2016-12-19] MEDS: CLOPIDOGREL 75 MG TABLET PO SCH (09:00)
[2016-12-19] MEDS: ASPIRIN EC 81 MG TABLET PO SCH (09:00)
[2016-12-19] MEDS: METOPROLOL TARTRATE 50 MG TABLET PO SCH ×2 (09:00→20:10)
[2016-12-19] MEDS: amLODIPine 10 MG TABLET PO SCH (09:00)
[2016-12-19] MEDS: DOCUSATE SODIUM 100 MG CAPSULE PO SCH ×2 (09:00→20:09)
[2016-12-19] MEDS: PANTOPRAZOLE 40 MG TABLET PO SCH (09:00)
[2016-12-19] MEDS: ENOXAPARIN 80 MG/0.8 ML SYRINGE SUBCUT SCH ×2 (09:00→20:08)
[2016-12-19] MEDS: CARVEDILOL 25 MG TABLET PO SCH ×2 (09:00→20:09)
[2016-12-19] MEDS ORDERED: HEPARIN 5,000 UNIT/1 ML VIAL ONE (09:10)
[2016-12-19] MEDS ORDERED: THROMBIN TOPICAL (RECOMBINANT) 5,000 UNIT VIAL TOP ONE (09:11)
[2016-12-19] MEDS ORDERED: VANCOMYCIN 500 MG VIAL ONE (09:11)
[2016-12-19] MEDS ORDERED: VANCOMYCIN INJ 500 MG in SODIUM CHLORIDE 0.9% 100 ML IV ONE (09:49)
[2016-12-19] MEDS ORDERED: ASPIRIN CHEW 81 MG TABLET PO SCH (12:30)
[2016-12-19] MEDS: LACTATED RINGERS 1,000 ML IV SCH ×2 (12:30→20:14)
--- NOTE | 2016-12-19 12:37 | Operative Note ---
Date of procedure: 12/19/16 Procedure: Dr. Gibson operative report on Tamiko Desai. Surgeon: Paige Anesthesia: Workup oh general endotracheal Preoperative diagnosis: Ischemia of the left lower extremity with left superficial femoral artery occlusion Postoperative diagnosis same Procedure: Left femoral-popliteal bypass with 6 mm PTFE. Left common femoral endarterectomy. Indications for the procedure Ms. Desai a 41-year-old woman has been having multiple difficulties with thrombosis and occlusion of the femoral arteries and iliac arteries she is undergone now successful angioplasties of the common iliac arteries continues to have significant ischemia of the left lower limb she has known superficial femoral occlusions she has poorly healing fifth toe amputation site I have offered therefore a left femoral-popliteal bypass I have explained the alternatives and the risk and complications which she understands and accepts Description of the procedure: After the induction of general endotracheal anesthesia the patient's lower abdomen and left leg to the ankle are prepped with ChloraPrep and Ioban and draped in usual fashion I began by making an initial incision over the medial popliteal space and began my search for the saphenous vein hoping to have an adequate vein to use for in situ bypassing unfortunately I found in fact to relatively small branches of this saphenous that did not perform a single good saphenous vein that would be adequate for bypassing I then dissected deeper in the space located a very good popliteal artery which was controlled with small vessel loops. Turned my attention to the left groin made an incision over the femoral canal carried this into the femoral canal carotid noted here that the saphenous vein even proximally was not particularly large femoral artery was dissected free and controlled the superficial profunda and common femoral separately noting pulse further up toward the external iliac there was some firm plaque just at the common confluence of the common femoral and the external iliac the patient had received 5000 units of intravenous heparin I used a Satinsky on the external iliac artery made a longitudinal arteriotomy from the proximal superficial femoral to the common femoral I found fresh thrombus as well as what appeared to be old organized thrombus did a modest endarterectomy removing the old organized thrombus from this area that included going down into the superficial femoral then proximally as well I did run a #4 James down into the superficial femoral return with organized thrombus but did not find that I could pass it all the way into the popliteal artery there was moderate backbleeding was good backbleeding from the pop profunda and I was able to perform an embolectomy there but found no significant clot I performed approximately embolectomy getting good inflow and fresh and old thrombus I was able to pass a 4 James catheter all the way into the aorta and gently bring it back through the stent in the common iliac and into the external iliac. I chose therefore to do a femoral-popliteal graft above the knee with 6 mm thin- walled PTFE PTFE was trimmed and anastomosed end-to-side to the popliteal artery with a running 6-0 [place] suture under loupe magnification notably I did attempt a retrograde mobilization of the superficial femoral and still could not pass through the junction of the popliteal and superficial femoral arteries the graft was then tunneled in a subsartorial tunnel was anastomosed end-to-side to the common femoral artery onto the proximal superficial femoral with another 6 oh cortex suture prior to completing the anastomosis I did flushed all vessels the initial flow from the common femoral was made into the profunda than the superficial femoral then into the graft for the proximal popliteal and into the distal popliteal Doppler signal is quite good in all of these vessels heparin was left on reversed and the incisions were irrigated and the appear to be dry placed Surgicel over the anastomosis at the groin first closed with 2 layers of 2-0 Monocryl and skin clips are returned to the popliteal space irrigated with vancomycin there was still excellent flow in the distal popliteal artery the Surgicel was placed over the anastomosis incision was drained with 2-0 Monocryl in the subcu and skin clips quarter inch Call drain was placed her to allow drainage of the popliteal space dressings were applied I could not palpate pulses foot clearly showed better perfusion at completion of the procedure blood loss is estimated at 3-400 cc sponge needle and aspirate counts are correct patient is taken to recovery in stable condition Surgeon / Physician: Kristopher Gibson Results - Labs CBC & BMP: 12/18/16 05:35 12/18/16 17:05 Discharge Plan - Discharge Medications No Action Atorvastatin [Lipitor] 20 mg PO BEDTIME #30 tablet glyBURIDE [Diabeta] 5 mg PO BID W/MEALS #60 tablet Lisinopril [Prinivil] 40 mg PO DAILY #30 tablet Metoprolol Tartrate Tab [Lopressor Tab] 50 mg PO BID amLODIPine [Norvasc] 10 mg PO DAILY tablet Clopidogrel [Plavix] 75 mg PO DAILY #30 tablet Nicotine 21 mg/24 Hr Patch [Nicoderm CQ 21 mg/24 hr Patch] 1 patch TRANSDERM DAILY #30 patch HYDROcodone/ACETAMIN 5-325 [[place] 5-325] 1 tablet PO Q6H #20 tablet Aspirin EC Tab 81 mg PO DAILY #30 tablet Carvedilol [Coreg] 25 mg PO BID #60 tablet Enoxaparin [Lovenox] 80 mg SUBCUT Q12H - Follow Up or Referral Follow Up: Tamiko Washington MD [Physician] - 12/21/16 1:20 pm - Forms/Instructions
[2016-12-19 13:27] LABS: Hematocrit 29.7 VOL% (35.7-47.0); Hemoglobin 10.1 GM/DL (12.0-16.0)
[2016-12-19] MEDS ORDERED: SUFentanil 50 MCG/ML AMP ONE (13:39)
[2016-12-19] MEDS ORDERED: ePHEDrine 50 MG/ML AMP ONE (13:40)
[2016-12-19] MEDS ORDERED: HEPARIN 10,000 UNIT/10 ML VIAL ONE (13:44)
[2016-12-19] MEDS ORDERED: HEPARIN/NACL 0.9% 2 UNITS/ML 500 ML IV ONE (13:44)
[2016-12-19] MEDS ORDERED: PROPOFOL 200 MG/20 ML VIAL IV ONE (13:44)
[2016-12-19] MEDS ORDERED: SEVOFLURANE 1 UNIT/15 MINUTE INH ONE (13:44)
[2016-12-19] MEDS ORDERED: PHENYLEPHRINE DRIP 20 MG/250 ML PREMIX IV ONE (13:44)
[2016-12-19] MEDS ORDERED: ONDANSETRON 4 MG/2 ML VIAL ONE (13:45)
[2016-12-19] MEDS ORDERED: NEOSTIGMINE 10 MG/10 ML VIAL ONE (13:45)
[2016-12-19] MEDS ORDERED: NEOSTIGMINE 10 MG/10 ML VIAL IV ONE (13:45)
[2016-12-19] MEDS ORDERED: MIDAZOLAM 2 MG/2 ML VIAL ONE (13:45)
[2016-12-19] MEDS ORDERED: GLYCOPYRROLATE 0.4 MG/2 ML VIAL ONE (13:45)
[2016-12-19] MEDS ORDERED: ROCURONIUM 100 MG/10 ML VIAL IV ONE (13:45)
[2016-12-19 13:46] LABS: PT Patient Result 10.6 SECS
[2016-12-19 13:47] LABS: Partial Thromboplastin Time 48.2 SECS (0-40)
[2016-12-19] MEDS ORDERED: SODIUM CHLORIDE 0.9% 1,000 ML IV ONE (13:47)
[2016-12-19] MEDS ORDERED: LACTATED RINGERS 1,000 ML IV ONE (13:47)
[2016-12-19 14:05] LABS: Osmolality,Calculated 264.1 MOS/KG (273-304); Potassium 3.5 MMOL/L (3.5-5.1)
--- NOTE | 2016-12-19 14:28 | Anesthesia Post-Op ---
Anesthesia Post OP - Post Ansesthetic Evaluation Patient seen in post op: Yes Resp: within normal limits CV: within normal limits Mental: within normal limits Temp: within normal limits [id number]: within normal limits Nausea and Vomiting: within normal limits Pain: within normal limits
[2016-12-19] MEDS: CLINDAMYCIN INJ 600 MG in PREMIX 1 EACH IV SCH ×2 (15:00→22:42)
[2016-12-19] MEDS ORDERED: MORPHINE 2 MG/1 ML SYRINGE IV ONE (15:25)
[2016-12-19] MEDS: NICOTINE 21 MG/24 HR PATCH TRANSDERM SCH (15:41)
[2016-12-19] MEDS: hydrALAZINE 20 MG/1 ML VIAL IV PRN (17:16)
--- NOTE | 2016-12-19 17:25 | Hospitalist Progress Note ---
Assessment and Plan (1) Severe peripheral arterial disease Status: Chronic Assessment and plan: Femoral-popliteal bypass scheduled for today with Dr. Daily. Continue Lovenox milligram per kg subcu twice daily. Current Visit: No (2) Hypertension Status: Chronic Current Visit: Yes Qualifiers: Hypertension type: essential hypertension Qualified Code(s): I10 - Essential (primary) hypertension (3) Diabetes Status: Chronic Current Visit: Yes Qualifiers: Diabetes mellitus type: type 2 Diabetes mellitus complication detail: with unspecified neuropathy Diabetes mellitus terminal superintendent insulin use: without terminal superintendent use (4) Cigarette nicotine dependence, uncomplicated Status: Chronic Current Visit: Yes (5) Mural thrombus of heart Status: Chronic Current Visit: Yes (6) Peripheral vascular disease Status: Chronic Current Visit: Yes Hospitalist: Subjective Interval history: Patient seen and examined. No acute events overnight. Case discussed with nursing staff. Labs reviewed. Going for femoral-popliteal bypass today with Dr. Gibson. Exam - Constitutional Vitals: Period Temp Pulse Resp BP Sys/Chavarria Pulse Ox Last 24 Hr 97 F-99.1 F 83-109 10-20 123-176/53-97 93-100 Exam: Constitutional System: No distress. No tremulousness. Head: Normocephalic, atraumatic. Ears, Nose and Throat System: No pain or tenderness. No epistaxis or discharge Eyes System: Pupils equal, round, and reactive. Extraocular muscles intact. Neck: Supple, without adenopathy, No jugular venous distention. No thyromegaly, neck mass, or prior surgery apparent. Respiratory System: Chest clear to auscultation. Cardiovascular System: Heart with regular rate and rhythm. No murmur. GI System: Abdomen soft, nontender. Normo active bowel sounds present. Musculoskeletal System: limbs with no pedal edema. Reduced absent pulses left lower extremity. Temperature difference between right and left leg with the left leg being slightly cooler to touch. Neurological System: No discernable sensory deficit. No aphasia Psychiatric System: Conversation is rational Results - Labs CBC & BMP: 12/19/16 13:20 12/19/16 13:20 Lab Results: I have reviewed the past 24 hour labs Specialty Discharge - Follow Up or Referrals Follow up with: Tamiko Washington MD [Physician] - 12/21/16 1:20 pm
--- NOTE | 2016-12-19 17:46 | Event Note ---
Mr. Desai is doing reasonably well postop complaining of expected pain. Her left foot is a little swollen and warm consistent with revascularization. I do not really palpate pedal pulses but may not do so. We will probably leave her in the CCU tonight we will move her in the morning and start ambulating. Dr. Lopez I have discussed long-term anticoagulation this I think should be determined by what needs to be done with the left ventricular thrombus and how that should be best treated. He I were strictly treating standard peripheral vascular disease I would use aspirin and Plavix. However with her obviously having some type of other coagulopathy that we have not been able to identify it may be more appropriate that she be on something like Eliquis or Coumadin. My concerns are that she will not be able to afford Eliquis. We will discuss this before discharge and try to set up an appropriate plan and follow-up
[2016-12-19] MEDS: ATORVASTATIN 20 MG TABLET PO SCH (20:10)
[2016-12-19] MEDS ORDERED: ENOXAPARIN 40 MG/0.4 ML SYRINGE SUBCUT SCH (21:00)
[2016-12-19] MEDS: METOPROLOL TARTRATE 5 MG/5 ML VIAL IV PRN ×2 (21:22→22:34)
[2016-12-19] MEDS: ZALEPLON 5 MG CAPSULE PO PRN (23:14)
[2016-12-20] MEDS: hydrALAZINE 20 MG/1 ML VIAL IV PRN (01:02)
[2016-12-20] MEDS: METOPROLOL TARTRATE 5 MG/5 ML VIAL IV PRN (01:40)
[2016-12-20] MEDS ORDERED: niCARdipine INJ 25 MG in SODIUM CHLORIDE 0.9% 240 ML IV SCH (02:30)
[2016-12-20] MEDS: HYDROmorphone 2 MG/1 ML VIAL IV PRN ×5 (04:02→20:53)
[2016-12-20] MEDS: niCARdipine INJ 50 MG in SODIUM CHLORIDE 0.9% 480 ML IV SCH ×2 (05:24→12:02)
[2016-12-20 05:43] LABS: Basophils % 0.2 % (0.0-0.8); Eosinophils # 0.1 10*3/uL (0.0-0.87); Eosinophils % 0.5 % (0.00-10.9); Hematocrit 28.6 VOL% (35.7-47.0); Hemoglobin 9.8 GM/DL (12.0-16.0); Immature Granulocytes % 0.5 %; Immature Granulocytes Absolute 0.06 #; Lymphocytes # 1.5 10*3/uL (1.4-4.0); Lymphocytes % 12.4 % (21.3-54.2); Mean Corpuscular HGB Conc 34.3 GM/DL (32-36); Mean Corpuscular Hemoglobin 31 PG (27-34); Mean Corpuscular Volume 89.7 FL (87-102); Monocytes # 1.4 10*3/uL (0.11-0.8); Monocytes % 11.2 % (1.7-12.7); Neutrophils # 9.4 10*3/uL (1.4-7.4); Neutrophils % 75.2 % (38.7-73.9); Platelet Count 254 T/CUMM (130-400); Red Blood Count 3.19 MC/CUMM (3.8-5.5); Red Cell Distribution Width 14.1 % (9.3-17.3); White Blood Count 12.4 T/CUMM (4-12)
[2016-12-20] MEDS: METOCLOPRAMIDE 10 MG/2 ML VIAL IV SCH ×3 (06:14→17:19)
[2016-12-20] MEDS: CLINDAMYCIN INJ 600 MG in PREMIX 1 EACH IV SCH ×3 (06:18→21:23)
[2016-12-20 06:19] LABS: Calcium 8.2 MG/DL (8.5-10.1); Osmolality,Calculated 268.2 MOS/KG (273-304); Potassium 3.6 MMOL/L (3.5-5.1)
[2016-12-20] MEDS: INSULIN ASPART PROTAMINE/ASPART 70/30 100 UNIT/ML SUBCUT SCH ×4 (10:23→20:54)
[2016-12-20] MEDS: DOCUSATE SODIUM 100 MG CAPSULE PO SCH ×2 (10:25→20:52)
[2016-12-20] MEDS: LISINOPRIL 20 MG TABLET PO SCH (10:25)
[2016-12-20] MEDS: ASPIRIN EC 81 MG TABLET PO SCH (10:26)
[2016-12-20] MEDS: NICOTINE 21 MG/24 HR PATCH TRANSDERM SCH (10:26)
[2016-12-20] MEDS: glyBURIDE 5 MG TABLET PO SCH ×2 (10:26→17:19)
[2016-12-20] MEDS: METOPROLOL TARTRATE 50 MG TABLET PO SCH ×2 (10:27→20:52)
[2016-12-20] MEDS: amLODIPine 10 MG TABLET PO SCH (10:27)
[2016-12-20] MEDS: CARVEDILOL 25 MG TABLET PO SCH ×2 (10:27→20:52)
[2016-12-20] MEDS: PANTOPRAZOLE 40 MG TABLET PO SCH (10:27)
[2016-12-20] MEDS: ENOXAPARIN 80 MG/0.8 ML SYRINGE SUBCUT SCH ×2 (10:27→20:52)
[2016-12-20] MEDS: LACTATED RINGERS 1,000 ML IV SCH (10:40)
--- NOTE | 2016-12-20 13:01 | Event Note ---
Ms. Desai continues to be lethargic requiring larger than normal amounts of pain medications requiring Cardene her foot is warm and well perfused the incisions look good and I removed the [place] drain today blood counts look good she should be able to get up out of the bed and start moving around and ambulating with physical therapy she can be transferred to a room on a as needed basis. Again Dr. Betancur and I have discussed long-term anticoagulation therapy and that will be dependent on what we left ventricular thrombus and any evidence of hypercoagulability. Strictly from the peripheral vascular aspect I would normally just use aspirin and Plavix but if we need to use aspirin Eliquis or something similar that will be fine
[2016-12-20] MEDS ORDERED: GLUCAGON 1 MG VIAL IM PRN (13:28)
[2016-12-20] MEDS ORDERED: DEXTROSE 50% 25 GM/50 ML VIAL IV PRN (13:28)
[2016-12-20] MEDS ORDERED: ALUMINUM/MAGNES/SIMETH MAX STR 30 ML UDCUP PO PRN (14:10)
--- NOTE | 2016-12-20 14:25 | Pathology Report from [facility] ---
[facility] [id number] PATIENT NAME : Amado Desai ORDERING DR : LUIZ HENRY MD CLINICAL HX: PVD POST-OP DX: Same SPECIMEN INFO: Thrombus GROSS DESCRIPTION: The specimen is received in formalin labeled with the patients name and consists of three segments of yellow-pink tissue measuring 16.0 x 0.5 cm in aggregate. Finish Inspector sections submitted in one cassette. DIAGNOSIS FOR AMADO DESAI: THROMBUS SUBMITTED: Organizing thrombus with calcification. COLLECTED DATE: 12/19/2016 [facility] REPORT DATE: 12/20/2016 ELECTRONICALLY SIGNED BY: Tylor Lira M.D. 12/20/2016 - 9:24:33 [facility]
--- NOTE | 2016-12-20 14:39 | Hospitalist Progress Note ---
Assessment and Plan (1) Severe peripheral arterial disease Status: Chronic Assessment and plan: Postop day #1 status post femoral-popliteal bypass with Dr. Daily. Continue Lovenox milligram per kg subcu twice daily. Current Visit: No (2) Hypertension Status: Chronic Current Visit: Yes Qualifiers: Hypertension type: essential hypertension Qualified Code(s): I10 - Essential (primary) hypertension (3) Diabetes Status: Chronic Current Visit: Yes Qualifiers: Diabetes mellitus type: type 2 Diabetes mellitus complication detail: with unspecified neuropathy Diabetes mellitus assisted insulin use: without termite exterminator helper use (4) Cigarette nicotine dependence, uncomplicated Status: Chronic Current Visit: Yes (5) Mural thrombus of heart Status: Chronic Assessment and plan: Continue anticoagulation Current Visit: Yes (6) Peripheral vascular disease Status: Chronic Current Visit: Yes Hospitalist: Subjective Interval history: Postop day 1 status post femoral-popliteal bypass. Patient tolerated procedure well. No complications. Patient seen and examined. No acute events overnight. Case discussed with nursing staff. Labs reviewed. Patient is currently receiving Lovenox for anticoagulation. Will likely need to transition to Coumadin or Eliquis at discharge. Had elevated blood pressures overnight and required Cardene drip. This is being weaned. Exam - Constitutional Vitals: Period Temp Pulse Resp BP Sys/Chavarria Pulse Ox Last 24 Hr 97.2 F-99.5 F 83-114 7-22 118-205/53-83 97-100 Exam: Constitutional System: No distress. No tremulousness. Head: Normocephalic, atraumatic. Ears, Nose and Throat System: No pain or tenderness. No epistaxis or discharge Eyes System: Pupils equal, round, and reactive. Extraocular muscles intact. Neck: Supple, without adenopathy, No jugular venous distention. No thyromegaly, neck mass, or prior surgery apparent. Respiratory System: Chest clear to auscultation. Cardiovascular System: Heart with regular rate and rhythm. No murmur. GI System: Abdomen soft, nontender. Normo active bowel sounds present. Musculoskeletal System: limbs with no pedal edema. Temperature difference between right and left leg with the right leg being slightly cooler to touch. Improved temperature and perfusion in the left lower extremity. Neurological System: No discernable sensory deficit. No aphasia Psychiatric System: Conversation is rational Results - Labs CBC & BMP: 12/20/16 05:30 12/20/16 05:30 Lab Results: I have reviewed the past 24 hour labs Specialty Discharge - Follow Up or Referrals Follow up with: Tamiko Washington MD [Physician] - 12/21/16 1:20 pm
[2016-12-20] MEDS: ATORVASTATIN 20 MG TABLET PO SCH (20:52)
[2016-12-20] MEDS: ZALEPLON 5 MG CAPSULE PO PRN (20:53)
[2016-12-21] MEDS: METOCLOPRAMIDE 10 MG/2 ML VIAL IV SCH ×2 (01:23→05:26)
[2016-12-21] MEDS: HYDROmorphone 2 MG/1 ML VIAL IV PRN ×6 (01:41→22:28)
[2016-12-21] MEDS: niCARdipine INJ 50 MG in SODIUM CHLORIDE 0.9% 480 ML IV SCH (04:59)
[2016-12-21] MEDS: CLINDAMYCIN INJ 600 MG in PREMIX 1 EACH IV SCH ×3 (05:26→21:23)
[2016-12-21] MEDS: INSULIN ASPART PROTAMINE/ASPART 70/30 100 UNIT/ML SUBCUT SCH ×4 (07:36→21:17)
--- NOTE | 2016-12-21 08:38 | Event Note ---
Ms. Desai appears to be more stable her left foot is warmer he states it feels more comfortable. Incision is okay we can leave addressed today. She is ready for transfer upstairs I think we need to make a significant effort to start ambulating physical therapy has been consulted and should work with her on this. I think also we need to consider swing bed placement for her and crest to have depressed she seems to be an antidepressant may be appropriate. I have asked nursing staff to check with Dr. Betancur with what he feels would be appropriate. From my standpoint she can be up and ambulatory as much as tolerated can be making plans for transfer to the swing bed at any time.
[2016-12-21] MEDS: LISINOPRIL 20 MG TABLET PO SCH (08:43)
[2016-12-21] MEDS: ENOXAPARIN 80 MG/0.8 ML SYRINGE SUBCUT SCH ×2 (08:43→21:18)
[2016-12-21] MEDS: glyBURIDE 5 MG TABLET PO SCH ×2 (08:44→17:08)
[2016-12-21] MEDS: DOCUSATE SODIUM 100 MG CAPSULE PO SCH ×2 (08:44→21:18)
[2016-12-21] MEDS: CARVEDILOL 25 MG TABLET PO SCH ×2 (08:44→21:18)
[2016-12-21] MEDS: ASPIRIN EC 81 MG TABLET PO SCH (08:45)
[2016-12-21] MEDS: METOPROLOL TARTRATE 50 MG TABLET PO SCH ×2 (08:45→21:22)
[2016-12-21] MEDS: NICOTINE 21 MG/24 HR PATCH TRANSDERM SCH (08:45)
[2016-12-21] MEDS: amLODIPine 10 MG TABLET PO SCH (08:45)
[2016-12-21] MEDS: PANTOPRAZOLE 40 MG TABLET PO SCH (08:45)
[2016-12-21] MEDS: METOCLOPRAMIDE 10 MG TABLET PO SCH ×3 (11:36→21:18)
--- NOTE | 2016-12-21 14:49 | Hospitalist Progress Note ---
Assessment and Plan (1) Severe peripheral arterial disease Status: Chronic Assessment and plan: Postop day #2 status post femoral-popliteal bypass with Dr. Daily. Continue Lovenox 1 milligram per kg subcu twice daily. Current Visit: No (2) Hypertension Status: Chronic Current Visit: Yes Qualifiers: Hypertension type: essential hypertension Qualified Code(s): I10 - Essential (primary) hypertension (3) Diabetes Status: Chronic Current Visit: Yes Qualifiers: Diabetes mellitus type: type 2 Diabetes mellitus complication detail: with unspecified neuropathy Diabetes mellitus parts counterman insulin use: without parts counterman use (4) Cigarette nicotine dependence, uncomplicated Status: Chronic Current Visit: Yes (5) Mural thrombus of heart Status: Chronic Assessment and plan: Continue anticoagulation with lovenox. will likely need coumadin Current Visit: Yes (6) Peripheral vascular disease Status: Chronic Current Visit: Yes Hospitalist: Subjective Interval history: Patient seen and examined. No acute events overnight. Case discussed with nursing staff. Labs reviewed. Off Cardene. Will transfer to the floor. Will start SSRI, Prozac for depressive symptoms. Exam - Constitutional Vitals: Period Temp Pulse Resp BP Sys/Chavarria Pulse Ox Last 24 Hr 97.4 F-100.2 F 97-110 9-28 107-172/44-86 94-100 Exam: Constitutional System: No distress. No tremulousness. Head: Normocephalic, atraumatic. Ears, Nose and Throat System: No pain or tenderness. No epistaxis or discharge Eyes System: Pupils equal, round, and reactive. Extraocular muscles intact. Neck: Supple, without adenopathy, No jugular venous distention. No thyromegaly, neck mass, or prior surgery apparent. Respiratory System: Chest clear to auscultation. Cardiovascular System: Heart with regular rate and rhythm. No murmur. GI System: Abdomen soft, nontender. Normo active bowel sounds present. Musculoskeletal System: limbs with no pedal edema. Temperature difference between right and left leg with the right leg being slightly cooler to touch. Improved temperature and perfusion in the left lower extremity. Neurological System: No discernable sensory deficit. No aphasia Psychiatric System: Conversation is rational, flat affect Results - Labs CBC & BMP: 12/20/16 05:30 12/20/16 05:30 Lab Results: I have reviewed the past 24 hour labs Specialty Discharge - Follow Up or Referrals Follow up with: Tamiko Washington MD [Physician] - 12/21/16 1:20 pm
[2016-12-21] MEDS: FLUoxetine 20 MG CAPSULE PO SCH (15:17)
[2016-12-21] MEDS: ONDANSETRON 4 MG/2 ML VIAL IV PRN (17:07)
[2016-12-21] MEDS: hydrALAZINE 20 MG/1 ML VIAL IV PRN (21:18)
[2016-12-21] MEDS: ATORVASTATIN 20 MG TABLET PO SCH (21:18)
[2016-12-21] MEDS: ZALEPLON 5 MG CAPSULE PO PRN (21:50)
[2016-12-22] MEDS: HYDROmorphone 2 MG/1 ML VIAL IV PRN ×4 (04:20→20:46)
[2016-12-22 05:43] LABS: Basophils % 0.1 % (0.0-0.8); Eosinophils % 0.3 % (0.00-10.9); Hematocrit 24.6 VOL% (35.7-47.0); Hemoglobin 8.6 GM/DL (12.0-16.0); Immature Granulocytes % 0.9 %; Immature Granulocytes Absolute 0.13 #; Lymphocytes # 1.9 10*3/uL (1.4-4.0); Lymphocytes % 13.7 % (21.3-54.2); Mean Corpuscular Hemoglobin 31 PG (27-34); Mean Corpuscular Volume 87.9 FL (87-102); Mean Platelet Volume 10.6 FL (9.6-12.0); Monocytes # 1.7 10*3/uL (0.11-0.8); Monocytes % 12.3 % (1.7-12.7); Neutrophils # 10.1 10*3/uL (1.4-7.4); Neutrophils % 72.7 % (38.7-73.9); Platelet Count 294 T/CUMM (130-400); Red Cell Distribution Width 14.2 % (9.3-17.3)
[2016-12-22] MEDS: CLINDAMYCIN INJ 600 MG in PREMIX 1 EACH IV SCH (06:03)
[2016-12-22 06:04] LABS: Calcium 8.2 MG/DL (8.5-10.1); Magnesium 1.6 MG/DL (1.8-2.4); Osmolality,Calculated 266.2 MOS/KG (273-304); Potassium 3.3 MMOL/L (3.5-5.1)
[2016-12-22] MEDS: PANTOPRAZOLE 40 MG TABLET PO SCH (08:30)
[2016-12-22] MEDS: CARVEDILOL 25 MG TABLET PO SCH ×2 (08:30→20:46)
[2016-12-22] MEDS: FLUoxetine 20 MG CAPSULE PO SCH (08:30)
[2016-12-22] MEDS: METOCLOPRAMIDE 10 MG TABLET PO SCH ×4 (08:30→20:46)
[2016-12-22] MEDS: POTASSIUM CHLORIDE 20 MEQ TABLET PO PRN ×3 (08:30→12:30)
[2016-12-22] MEDS: DOCUSATE SODIUM 100 MG CAPSULE PO SCH ×2 (08:30→20:46)
[2016-12-22] MEDS: glyBURIDE 5 MG TABLET PO SCH ×2 (08:30→16:03)
[2016-12-22] MEDS: LISINOPRIL 20 MG TABLET PO SCH (08:30)
[2016-12-22] MEDS: METOPROLOL TARTRATE 50 MG TABLET PO SCH (08:31)
[2016-12-22] MEDS: NICOTINE 21 MG/24 HR PATCH TRANSDERM SCH (08:31)
[2016-12-22] MEDS: amLODIPine 10 MG TABLET PO SCH (08:31)
[2016-12-22] MEDS ORDERED: FUROSEMIDE 40 MG/4 ML VIAL IV ONE (08:31)
[2016-12-22] MEDS: INSULIN ASPART PROTAMINE/ASPART 70/30 100 UNIT/ML SUBCUT SCH ×4 (08:31→20:47)
[2016-12-22] MEDS: ENOXAPARIN 80 MG/0.8 ML SYRINGE SUBCUT SCH (08:31)
[2016-12-22] MEDS: ASPIRIN EC 81 MG TABLET PO SCH (08:32)
--- NOTE | 2016-12-22 10:33 | Event Note ---
Tamiko Desai is in CT scan this morning after a fall apparently became dizzy and fell in the room. The CT is pending I do not have any reports on her leg or foot but I anticipate that it is still doing reasonably well. At this point in time we need to make a decision on long-term anticoagulation whether Coumadin will be reasonable for her have fears that she will not be able to afford Eliquis or many of the other anticoagulants.
--- NOTE | 2016-12-22 10:41 | CT Report ---
CT head/brain wo con Indication: Head trauma Comparison: CT brain dated July 31, 2015 Technique: Multiple axial tomographic images of the brain were obtained without the use of intravenous contrast. Findings: Moderate encephalomalacia involving the right occipital, right parietal, and right temporal lobes consistent with old infarct. Small left frontotemporal encephalomalacia consistent with old infarct. Mild periventricular and subcortical hypoattenuation noted which is nonspecific but consistent with chronic microvascular ischemic change. Demyelinating process and vasculitis less likely considerations. Midline structures are nondisplaced. There is no convincing evidence of acute intracranial hemorrhage . No convincing evidence of hydrocephalus. The visualized paranasal sinuses and bilateral mastoid air cells are predominantly clear. IMPRESSION: No acute intracranial abnormality demonstrated. Chronic findings as detailed above. The CT exam was performed using one or more of the following dose reduction techniques: Automated exposure control, adjustment of the mA and/or kV according to patient size, or use of iterative reconstruction technique. PROCEDURE INTERPRETED AT [facility] DEPARTMENT OF RADIOLOGY Final Report Signed by: Dr Shahid Salamanca
[2016-12-22] MEDS ORDERED: MAGNESIUM SULF RIDER 4 GM in PREMIX 1 EACH IV ONE (10:55)
[2016-12-22] MEDS ORDERED: POTASSIUM CHLORIDE 20 MEQ TABLET PO ONE (10:57)
--- NOTE | 2016-12-22 11:04 | Event Note ---
CT of the brain on Ms. Desai is negative for acute changes. 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
--- NOTE | 2016-12-22 11:19 | Hospitalist Progress Note ---
Assessment and Plan (1) Mural thrombus of heart Status: Chronic Assessment and plan: Treatment with Eliquis 10 mg p.o. twice daily Current Visit: Yes (2) Encephalomalacia Status: Acute Assessment and plan: Due to multiple devastating strokes Current Visit: Yes (3) Clotting disorder Status: Acute Assessment and plan: Patient has had multiple bilateral strokes she has also had multiple bilateral clots in her aorta. Patient will have to be on Eliquis for life. We will start at treatment dose 10 mg twice daily Current Visit: Yes (4) Diabetes Status: Chronic Assessment and plan: Continue glyburide 5 mg twice daily Current Visit: Yes Qualifiers: Diabetes mellitus type: type 2 Diabetes mellitus complication detail: with unspecified neuropathy Diabetes mellitus technician terminal and repeater insulin use: without technician terminal and repeater use (5) Peripheral vascular disease Status: Chronic Assessment and plan: severe, cont asa 81 mg starting eliquis 10 mg po bid for hypercoaguable disorder Current Visit: Yes (6) Aortic occlusion Status: Acute Assessment and plan: bilateral iliac arter thrombous, s/p lef iliac artery angioplasty with TPA on 02/20 and bilateral common iliac artery stent placement on 12/15/16 Current Visit: No (7) Hypertensive crisis Status: Acute Assessment and plan: resolved, blood pressure may be overcontrolled causing worsening weakness, hold hydralazine and metoprolol but continue norvasc, coreg and lisinopril Current Visit: No (8) Severe peripheral arterial disease Status: Chronic Assessment and plan: s/p left fem-pop bypas and left common femoral endarterectomy Current Visit: No (9) Depression Status: Acute Assessment and plan: She was started on Prozac 20 mg yesterday. Current Visit: Yes (10) Volume overload Status: Acute Assessment and plan: We will give a one-time dose of IV Lasix due to volume overload Current Visit: Yes (11) Hypokalemia Status: Acute Assessment and plan: Replacing and recheck in am Current Visit: Yes (12) Anemia Status: Acute Assessment and plan: Patient had some acute blood loss anemia but her hemoglobin is stabilized at 8.6 and was on treatment dose Lovenox. Dr. Guthrie has seen her and performed in EGD on 12/14/16 which was negative for bleeding Current Visit: Yes (13) Bilateral leg weakness Status: Acute Assessment and plan: PT OT, rehab [facility] Current Visit: Yes Hospitalist: Subjective Interval history: We are awaiting approval from [employer] to send her to [facility]. That will be the only leave rehab place that will accept [employer]. Patient is extremely weak and does need rehab she is also very depressed. I have discussed her case at length with Dr. Gibson and he feels that she has a hypercoagulable disorder we will stop her Lovenox and put her on treatment dose Eliquis. Patient fell this morning because she would not wait for the nurses to come and help her hitting her head but her CT shows no evidence of acute bleed. Exam - Constitutional Vitals: Period Temp Pulse Resp BP Sys/Chavarria Pulse Ox Last 24 Hr 98.4 F-99.6 F 88-108 12-24 131-157/55-81 94-100 Exam: Heart Rate-[RRR] Lungs-[CTAB but diminished] GI-[+bs soft, NT] Ext-[1+ edema] Neuro [Motor 4/5], [alert and oriented times 3] psych [very depressed mood and flat affect] General [no acute distress] Results - Labs CBC & BMP: 12/22/16 04:15 12/22/16 04:15 Lab Results: I have reviewed the past 24 hour labs Specialty Discharge - Follow Up or Referrals Follow up with: Tamiko Washington MD [Physician] - 12/21/16 1:20 pm
--- NOTE | 2016-12-22 12:01 | XRay Report ---
XR chest 1V portable Indication: Fever, SOB Comparison: Chest x-ray December 18, 2016 Technique: Single frontal view of the chest. Findings: Right-sided central venous catheter appears grossly unchanged. The cardiomediastinal silhouette is stable in configuration. No focal consolidation, pleural effusion, or pneumothorax. Visualized osseous and surrounding soft tissue structures appear grossly unchanged. IMPRESSION: Stable chest x-ray without acute cardiopulmonary process demonstrated. PROCEDURE INTERPRETED AT [facility] DEPARTMENT OF RADIOLOGY Final Report Signed by: Dr Shahid Salamanca
[2016-12-22] MEDS: ATORVASTATIN 40 MG TABLET PO SCH (20:46)
[2016-12-22] MEDS: ZALEPLON 5 MG CAPSULE PO PRN (20:46)
[2016-12-22] MEDS: APIXABAN 5 MG TABLET PO SCH (20:47)
[2016-12-22] MEDS ORDERED: APIXABAN 5 MG TABLET PO SCH (21:00)
[2016-12-22 21:35] LABS: Apearance,Urine Slightly Hazy (Clear); Bacteria,Urine Many /HPF (Few); Bilirubin,Urine Negative (Negative); Blood, Urine Small mg/dL (Negative); Glucose,Urine (UA) Negative (Negative); Ketones,Urine Negative (Negative); Mucus,Urine Occasional /LPF (Occasional); Nitrite,Urine Negative (Negative); Protein,Urine 30 MG/DL; RBC,Urine 1 /HPF (0-4); Squamous Epithelial Cell,Urine Occasional /HPF (0-10); Urine Color Yellow (Yellow); Urine Specific Gravity 1.006 (1.001-1.035); Urine Urobilinogen < 2.0 EU/DL (0.2-1.0); WBC,Urine 4 /HPF (0-6)
[2016-12-23] MEDS: HYDROmorphone 2 MG/1 ML VIAL IV PRN ×5 (02:43→20:45)
[2016-12-23 07:28] LABS: Basophils % 0.3 % (0.0-0.8); Eosinophils # 0.1 10*3/uL (0.0-0.87); Eosinophils % 0.8 % (0.00-10.9); Hematocrit 24.9 VOL% (35.7-47.0); Hemoglobin 8.6 GM/DL (12.0-16.0); Immature Granulocytes % 0.4 %; Immature Granulocytes Absolute 0.05 #; Lymphocytes # 1.9 10*3/uL (1.4-4.0); Lymphocytes % 15.8 % (21.3-54.2); Mean Corpuscular HGB Conc 34.5 GM/DL (32-36); Mean Corpuscular Hemoglobin 31 PG (27-34); Mean Corpuscular Volume 89.2 FL (87-102); Monocytes # 1.4 10*3/uL (0.11-0.8); Monocytes % 11.9 % (1.7-12.7); Neutrophils # 8.4 10*3/uL (1.4-7.4); Neutrophils % 70.8 % (38.7-73.9); Platelet Count 318 T/CUMM (130-400); Red Blood Count 2.79 MC/CUMM (3.8-5.5); Red Cell Distribution Width 14.3 % (9.3-17.3); White Blood Count 11.8 T/CUMM (4-12)
[2016-12-23 07:53] LABS: Calcium 8.2 MG/DL (8.5-10.1); Osmolality,Calculated 269.2 MOS/KG (273-304); Potassium 3.9 MMOL/L (3.5-5.1)
[2016-12-23] MEDS: LISINOPRIL 20 MG TABLET PO SCH (09:02)
[2016-12-23] MEDS: amLODIPine 10 MG TABLET PO SCH (09:03)
[2016-12-23] MEDS: PANTOPRAZOLE 40 MG TABLET PO SCH (09:03)
[2016-12-23] MEDS: FLUoxetine 20 MG CAPSULE PO SCH (09:03)
[2016-12-23] MEDS: APIXABAN 5 MG TABLET PO SCH ×2 (09:03→20:46)
[2016-12-23] MEDS: ASPIRIN EC 81 MG TABLET PO SCH (09:03)
[2016-12-23] MEDS: METOCLOPRAMIDE 10 MG TABLET PO SCH ×4 (09:04→20:45)
[2016-12-23] MEDS: CARVEDILOL 25 MG TABLET PO SCH ×2 (09:04→20:46)
[2016-12-23] MEDS: glyBURIDE 5 MG TABLET PO SCH ×2 (09:04→16:41)
[2016-12-23] MEDS: DOCUSATE SODIUM 100 MG CAPSULE PO SCH ×2 (09:04→20:46)
[2016-12-23] MEDS: NICOTINE 21 MG/24 HR PATCH TRANSDERM SCH (09:05)
[2016-12-23] MEDS: INSULIN ASPART PROTAMINE/ASPART 70/30 100 UNIT/ML SUBCUT SCH ×4 (09:07→20:45)
--- NOTE | 2016-12-23 09:39 | Event Note ---
She denies any lower extremity pain. Her dressing is dry. The foot is well perfused appearing and warm. I think I can palpate a posterior tibial pulse. She apparently fell yesterday. She denies any neurologic changes and is awake and alert and her head CT yesterday was negative.
--- NOTE | 2016-12-23 14:22 | Hospitalist Progress Note ---
Assessment and Plan (1) Mural thrombus of heart Status: Chronic Assessment and plan: Continue treatment with Eliquis 10 mg p.o. twice daily twice daily 7 days then 5 mg twice a day. Hemoglobin holding. Current Visit: Yes (2) Encephalomalacia Status: Acute Assessment and plan: Due to multiple devastating strokes, will require blood thinners for life Current Visit: Yes (3) Clotting disorder Status: Acute Assessment and plan: Patient has had multiple bilateral strokes she has also had multiple bilateral clots in her aorta. Patient will have to be on Eliquis for life. 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: without prison use (5) Peripheral vascular disease Status: Chronic Assessment and plan: severe, cont asa 81 mg starting eliquis 10 mg po bid for hypercoaguable disorder Current Visit: Yes (6) Aortic occlusion Status: Acute Assessment and plan: bilateral iliac arter thrombous, s/p lef iliac artery angioplasty with TPA on 02/20 and bilateral common iliac artery stent placement on 12/15/16 Current Visit: No (7) Hypertensive crisis Status: Acute Assessment and plan: continue norvasc, coreg and lisinopril Current Visit: No (8) Severe peripheral arterial disease Status: Chronic Assessment and plan: s/p left fem-pop bypas and left common femoral endarterectomy Current Visit: No (9) Depression Status: Acute Assessment and plan: Continue Prozac 20 mg. Current Visit: Yes (10) Volume overload Status: Acute Assessment and plan: Resolved Current Visit: Yes (11) Hypokalemia Status: Acute Assessment and plan: Resolved Current Visit: Yes (12) Anemia Status: Acute Assessment and plan: hemoglobin stable but continue to monitor while on Eliquis Current Visit: Yes (13) Bilateral leg weakness Status: Acute Assessment and plan: PT OT, rehab [facility] Current Visit: Yes (14) Hypomagnesemia Status: Acute Assessment and plan: Replaced recheck in a.m. Current Visit: Yes Hospitalist: Subjective Interval history: Tamiko Desai was reminded today not to get out of bed without calling nursing as she is too weak and she will fall again. I explained the purpose of anticoagulation and the importance of anticoagulation. We have called her Kory to the pharmacy and she has 0 co-pay. So far her hemoglobin is holding. Exam - Constitutional Vitals: Period Temp Pulse Resp BP Sys/Chavarria Pulse Ox Last 24 Hr 97.5 F-98.0 F 87-95 16-20 116-144/61-78 90-96 Exam: Heart Rate-[RRR] Lungs-[CTAB] GI-[+bs soft, NT] Ext-trace edema] Neuro [Motor 4/5], [alert and oriented times 3] psych [very depressed mood and flat affect] General [no acute distress] Results - Labs CBC & BMP: 12/23/16 07:09 12/23/16 07:09 Lab Results: I have reviewed the past 24 hour labs - Diagnostic Findings Procedure: Chest x-ray: report reviewed by me (Stable chest x-ray.), CT: report reviewed by me (Head nothing acute) Specialty Discharge - Follow Up or Referrals Follow up with: Tamiko Washington MD [Physician] - 12/21/16 1:20 pm
[2016-12-23] MEDS: ZALEPLON 5 MG CAPSULE PO PRN (20:44)
[2016-12-23] MEDS: ATORVASTATIN 40 MG TABLET PO SCH (20:45)
[2016-12-24] MEDS: HYDROmorphone 2 MG/1 ML VIAL IV PRN ×8 (00:50→23:23)
[2016-12-24 07:44] LABS: Basophils % 0.4 % (0.0-0.8); Eosinophils # 0.1 10*3/uL (0.0-0.87); Eosinophils % 1.3 % (0.00-10.9); Hematocrit 26.6 VOL% (35.7-47.0); Hemoglobin 8.9 GM/DL (12.0-16.0); Immature Granulocytes % 0.4 %; Immature Granulocytes Absolute 0.04 #; Lymphocytes # 2.6 10*3/uL (1.4-4.0); Lymphocytes % 25.2 % (21.3-54.2); Mean Corpuscular HGB Conc 33.5 GM/DL (32-36); Mean Corpuscular Hemoglobin 30 PG (27-34); Mean Corpuscular Volume 90.2 FL (87-102); Mean Platelet Volume 10.2 FL (9.6-12.0); Monocytes # 1.4 10*3/uL (0.11-0.8); Monocytes % 13.5 % (1.7-12.7); Neutrophils # 6.2 10*3/uL (1.4-7.4); Neutrophils % 59.2 % (38.7-73.9); Platelet Count 376 T/CUMM (130-400); Red Blood Count 2.95 MC/CUMM (3.8-5.5); Red Cell Distribution Width 14.4 % (9.3-17.3); White Blood Count 10.5 T/CUMM (4-12)
[2016-12-24] MEDS: INSULIN ASPART PROTAMINE/ASPART 70/30 100 UNIT/ML SUBCUT SCH ×4 (07:58→20:10)
[2016-12-24 08:13] LABS: Calcium 8.4 MG/DL (8.5-10.1); Potassium 4.2 MMOL/L (3.5-5.1)
[2016-12-24] MEDS: METOCLOPRAMIDE 10 MG TABLET PO SCH ×4 (09:49→20:12)
[2016-12-24] MEDS: DOCUSATE SODIUM 100 MG CAPSULE PO SCH ×2 (09:50→20:12)
[2016-12-24] MEDS: amLODIPine 10 MG TABLET PO SCH (09:50)
[2016-12-24] MEDS: APIXABAN 5 MG TABLET PO SCH ×2 (09:51→20:11)
[2016-12-24] MEDS: LISINOPRIL 20 MG TABLET PO SCH (09:51)
[2016-12-24] MEDS: FLUoxetine 20 MG CAPSULE PO SCH (09:52)
[2016-12-24] MEDS: glyBURIDE 5 MG TABLET PO SCH ×2 (09:52→17:28)
[2016-12-24] MEDS: CARVEDILOL 25 MG TABLET PO SCH ×2 (09:52→20:12)
[2016-12-24] MEDS: PANTOPRAZOLE 40 MG TABLET PO SCH (09:52)
[2016-12-24] MEDS: NICOTINE 21 MG/24 HR PATCH TRANSDERM SCH (09:52)
[2016-12-24] MEDS: ASPIRIN EC 81 MG TABLET PO SCH (09:52)
--- NOTE | 2016-12-24 10:40 | Event Note ---
She has no complaints. She has no leg pain. There is no lower extremity edema and she is afebrile with stable vital signs. They are working on swing bed for rehabilitation placement.
--- NOTE | 2016-12-24 11:15 | Hospitalist Progress Note ---
Assessment and Plan (1) Mural thrombus of heart Status: Chronic Assessment and plan: Continue treatment with Eliquis 10 mg p.o. twice daily twice daily 7 days (06/13 ) then 5 mg twice a day. Hemoglobin stable Current Visit: Yes (2) Encephalomalacia Status: Acute Assessment and plan: Due to multiple devastating strokes, will require blood thinners for life Current Visit: Yes (3) Clotting disorder Status: Acute Assessment and plan: Patient has had multiple bilateral strokes she has also had multiple bilateral clots in her aorta. Patient will have to be on Eliquis for life. Continue eliquis 10 mg twice daily for 7 days (06/13) then 5 mg twice daily Current Visit: Yes (4) Diabetes Status: Chronic Assessment and plan: Continue glyburide 5 mg twice daily, will start low dose metformin, hemoglobin A1c 6.9 Current Visit: Yes Qualifiers: Diabetes mellitus type: type 2 Diabetes mellitus complication detail: with unspecified neuropathy Diabetes mellitus terminal superintendent insulin use: without halfway use (5) Peripheral vascular disease Status: Chronic Assessment and plan: s/p left fem-pop bypas and left common femoral endarterectomy, cont asa 81 mg starting eliquis 10 mg po bid for 7 days (06/13) then 5 mg po bid for life Current Visit: Yes (6) Aortic occlusion Status: Acute Assessment and plan: bilateral iliac arter thrombous, s/p lef iliac artery angioplasty with TPA on 02/20 and bilateral common iliac artery stent placement on 12/15/16 Current Visit: No (7) Hypertensive crisis Status: Acute Assessment and plan: controlled on norvasc, coreg and lisinopril Current Visit: No (8) Depression Status: Acute Assessment and plan: improved on Prozac 20 mg Current Visit: Yes (9) Hypokalemia Status: Acute Assessment and plan: Resolved Current Visit: Yes (10) Anemia Status: Acute Assessment and plan: hemoglobin stable but continue to monitor while on Eliquis Current Visit: Yes (11) Bilateral leg weakness Status: Acute Assessment and plan: PT OT, re[facility], awaiting approval from [employer] Current Visit: Yes (12) Hypomagnesemia Status: Acute Assessment and plan: Resolved Current Visit: Yes Hospitalist: Subjective Interval history: Patient was told not to get up without help from nursing because of risk of fall. She got up and went to the bathroom by herself again this morning. I have asked her not to do that multiple times. Patient still on Eliquis 10 mg twice a day (#2/). She reports no bleeding Exam - Constitutional Vitals: Period Temp Pulse Resp BP Sys/Chavarria Pulse Ox Last 24 Hr 97.3 F-98.1 F 87-104 18-20 131-161/67-78 92-100 Exam: Heart Rate-[RRR] Lungs-[CTAB] GI-[+bs soft, NT] Ext-no edema] Neuro [Motor 4/5], [alert and oriented times 3] psych [depressed mood and flat affect] General [no acute distress] Results - Labs CBC & BMP: 12/24/16 06:30 12/24/16 06:30 Lab Results: I have reviewed the past 24 hour labs Specialty Discharge - Follow Up or Referrals Follow up with: Tamiko Washington MD [Physician] - 12/21/16 1:20 pm
[2016-12-24] MEDS: metFORMIN 500 MG TABLET PO SCH (12:32)
[2016-12-24] MEDS: ATORVASTATIN 40 MG TABLET PO SCH (20:11)
[2016-12-24] MEDS: ZALEPLON 5 MG CAPSULE PO PRN (20:11)
[2016-12-25] MEDS: HYDROmorphone 2 MG/1 ML VIAL IV PRN ×6 (02:14→23:20)
[2016-12-25 06:22] LABS: Basophils % 0.4 % (0.0-0.8); Eosinophils # 0.1 10*3/uL (0.0-0.87); Eosinophils % 1.2 % (0.00-10.9); Hematocrit 25.8 VOL% (35.7-47.0); Hemoglobin 8.6 GM/DL (12.0-16.0); Immature Granulocytes % 0.4 %; Immature Granulocytes Absolute 0.04 #; Lymphocytes # 2.2 10*3/uL (1.4-4.0); Lymphocytes % 23.7 % (21.3-54.2); Mean Corpuscular HGB Conc 33.3 GM/DL (32-36); Mean Corpuscular Hemoglobin 30 PG (27-34); Mean Corpuscular Volume 90.2 FL (87-102); Mean Platelet Volume 10.2 FL (9.6-12.0); Monocytes # 1.1 10*3/uL (0.11-0.8); Monocytes % 11.2 % (1.7-12.7); Neutrophils % 63.1 % (38.7-73.9); Platelet Count 401 T/CUMM (130-400); Red Blood Count 2.86 MC/CUMM (3.8-5.5); Red Cell Distribution Width 14.3 % (9.3-17.3); White Blood Count 9.4 T/CUMM (4-12)
--- NOTE | 2016-12-25 07:39 | Oncology Progress Note ---
Oncology Subjective PN Interval history: I ordered an RPR on this patient last week. 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 They may not even run an RPR anymore. The RPR is a test for antiphospholipid antibodies, which is the reason I ordered it. It tested negative for syphilis but I was actually looking for antiphospholipid antibodies. Exam - Constitutional Vitals: Period Temp Pulse Resp BP Sys/Chavarria Pulse Ox Last 24 Hr 97.3 F-98.5 F 89-104 16-20 142-161/69-85 93-100 Results - Labs CBC & BMP: 12/25/16 05:54 12/24/16 06:30 Specialty Discharge - Follow Up or Referrals Follow up with: Tamiko Washington MD [Physician] - 12/21/16 1:20 pm
[2016-12-25] MEDS: METOCLOPRAMIDE 10 MG TABLET PO SCH ×4 (08:16→20:23)
[2016-12-25] MEDS: glyBURIDE 5 MG TABLET PO SCH ×2 (08:16→18:04)
[2016-12-25] MEDS: CARVEDILOL 25 MG TABLET PO SCH ×2 (08:17→20:23)
[2016-12-25] MEDS: DOCUSATE SODIUM 100 MG CAPSULE PO SCH ×2 (08:17→20:23)
[2016-12-25] MEDS: metFORMIN 500 MG TABLET PO SCH (08:17)
[2016-12-25] MEDS: ASPIRIN EC 81 MG TABLET PO SCH (08:17)
[2016-12-25] MEDS: amLODIPine 10 MG TABLET PO SCH (08:18)
[2016-12-25] MEDS: NICOTINE 21 MG/24 HR PATCH TRANSDERM SCH (08:18)
[2016-12-25] MEDS: APIXABAN 5 MG TABLET PO SCH ×2 (08:18→20:22)
[2016-12-25] MEDS: LISINOPRIL 20 MG TABLET PO SCH (08:19)
[2016-12-25] MEDS: PANTOPRAZOLE 40 MG TABLET PO SCH (08:19)
[2016-12-25] MEDS: FLUoxetine 20 MG CAPSULE PO SCH (08:19)
--- NOTE | 2016-12-25 09:03 | Event Note ---
Ms. Desai appears to be feeling better states she still has pain in the leg and from falling but I see no evidence of major injury. I do want physical therapy to help her get up and start walking she can shower now I will leave the clips and until end of this week of the first next week. If rehab bed becomes available C certainly can go there
[2016-12-25] MEDS: INSULIN ASPART PROTAMINE/ASPART 70/30 100 UNIT/ML SUBCUT SCH ×4 (09:59→20:23)
--- NOTE | 2016-12-25 10:37 | Hospitalist Progress Note ---
Assessment and Plan (1) Clotting disorder Status: Acute Assessment and plan: Impression: 1. Clotting disorder Plan: Continue current anticoagulants. Await acceptance at rehab hospital, and discharge when approved. Continue physical therapy. This note was completed using [employer] voice recognition software. There may be gas welder errors as a result. Current Visit: Yes Hospitalist: Subjective Interval history: Follow-up clotting disorder. The patient has been seen by surgery and oncology. She is cleared to go to the rehab unit if she is accepted. She is able to lift the left leg off the bed. She says that she is tired following an episode of physical therapy that she just finished. Exam - Constitutional Vitals: Period Temp Pulse Resp BP Sys/Chavarria Pulse Ox Last 24 Hr 97.7 F-98.5 F 92-104 16-20 142-158/69-85 93-100 Vital signs are noted above. Heart is regular with no murmur or gallop. Lungs are clear with no rales or wheezes. She is able to lift both arms and the right leg off the bed easily. She is able to move the left leg slightly against gravity. Left leg is warm. She is awake and alert Results - Labs CBC & BMP: 12/25/16 05:54 12/24/16 06:30 Lab Results: I have reviewed the past 24 hour labs Specialty Discharge - Follow Up or Referrals Follow up with: Tamiko Washington MD [Physician] - 12/21/16 1:20 pm
[2016-12-25] MEDS: ATORVASTATIN 40 MG TABLET PO SCH (20:22)
[2016-12-25] MEDS: ZALEPLON 5 MG CAPSULE PO PRN (20:26)
[2016-12-26] MEDS: HYDROmorphone 2 MG/1 ML VIAL IV PRN ×2 (03:04→06:03)
[2016-12-26] MEDS: INSULIN ASPART PROTAMINE/ASPART 70/30 100 UNIT/ML SUBCUT SCH ×2 (07:34→12:00)
[2016-12-26] MEDS: ASPIRIN EC 81 MG TABLET PO SCH (08:34)
[2016-12-26] MEDS: PANTOPRAZOLE 40 MG TABLET PO SCH (08:34)
[2016-12-26] MEDS: APIXABAN 5 MG TABLET PO SCH (08:35)
[2016-12-26] MEDS: glyBURIDE 5 MG TABLET PO SCH (08:35)
[2016-12-26] MEDS: METOCLOPRAMIDE 10 MG TABLET PO SCH ×2 (08:36→12:01)
[2016-12-26] MEDS: FLUoxetine 20 MG CAPSULE PO SCH (08:36)
[2016-12-26] MEDS: metFORMIN 500 MG TABLET PO SCH (08:36)
[2016-12-26] MEDS: DOCUSATE SODIUM 100 MG CAPSULE PO SCH (08:36)
[2016-12-26] MEDS: amLODIPine 10 MG TABLET PO SCH (08:37)
[2016-12-26] MEDS: LISINOPRIL 20 MG TABLET PO SCH (08:37)
[2016-12-26] MEDS: NICOTINE 21 MG/24 HR PATCH TRANSDERM SCH (08:37)
[2016-12-26] MEDS: CARVEDILOL 25 MG TABLET PO SCH (08:38)
--- NOTE | 2016-12-26 11:38 | Discharge Summary ---
Hospital Course - Hospital Course Hospital Course: Discharge diagnosis Hypercoagulable state with multiple cerebral infarctions and arterial disease The patient presented to the hospital for evaluation of abdominal pain. She was ultimately found to have vascular insufficiency, and has a known prior history of hypercoagulable state. She ended up having some vascular procedures on her left lower extremity. She was seen by numerous consultants during the hospitalization. She remained with some weakness in the left leg following revascularization. She is now going to the rehab hospital for further care. She continues to complain of some abdominal pain, but this has been extensively evaluated with no definite etiology being found. Medication reconciliation has been performed. Continue current diet. Activity as tolerated and prescribed by PT. Diagnosis - Discharge Diagnosis (1) Clotting disorder Status: Acute Specialty Discharge - Follow Up or Referrals Follow up with: Tamiko Washington MD [Physician] - 12/21/16 1:20 pm Discharge Plan - Discharge Data Disposition: Disch/Xfer-Ip Rehab Fac Condition at Discharge: Stable Discharge Diet: advance to your usual diet Activity: as per physical therapy - Discharge Medications New Apixaban [Eliquis] 5 mg PO BID #60 tablet Apixaban [Eliquis] 10 mg PO BID tablet Dextrose 50% [D50] 25 gm IV PRN PRN syringe PRN Reason: Hypoglycemia with IV access Docusate Sodium Cap [Colace Cap] 100 mg PO BID capsule FLUoxetine [PROzac] 20 mg PO DAILY capsule Insulin Aspart Prot/Asp 70/30 [NovoLOG Mix 70/30] See Protocol SUBCUT ACHS unit metFORMIN [Glucophage] 500 mg PO DAILY W/BREAKFAST tablet Zaleplon [Sonata] 10 mg PO BEDTIME PRN capsule PRN Reason: Sleep Acetaminophen Tab [Tylenol Tab] 650 mg PO Q4H PRN tablet PRN Reason: Fever, Headache, Mild Pain Alum/Mag/Simeth Max Str Liquid [Mylanta Max Strength Liquid] 30 ml PO Q6H PRN PRN Reason: Dyspepsia Glucagon 1 mg IM PRN PRN vial PRN Reason: Hypoglycemia w/o IV access Metoclopramide Tab [Reglan Tab] 10 mg PO ACHS tablet Continue Atorvastatin [Lipitor] 20 mg PO BEDTIME #30 tablet glyBURIDE [Diabeta] 5 mg PO BID W/MEALS #60 tablet Lisinopril [Prinivil] 40 mg PO DAILY #30 tablet Metoprolol Tartrate Tab [Lopressor Tab] 50 mg PO BID amLODIPine [Norvasc] 10 mg PO DAILY tablet Clopidogrel [Plavix] 75 mg PO DAILY #30 tablet Nicotine 21 mg/24 Hr Patch [Nicoderm CQ 21 mg/24 hr Patch] 1 patch TRANSDERM DAILY #30 patch HYDROcodone/ACETAMIN 5-325 [Sumerco 5-325] 1 tablet PO Q6H #20 tablet Aspirin EC Tab 81 mg PO DAILY #30 tablet Carvedilol [Coreg] 25 mg PO BID #60 tablet Discontinued Enoxaparin [Lovenox] 80 mg SUBCUT Q12H - Follow Up or Referral Follow Up: Tamiko Washington MD [Physician] - 12/21/16 1:20 pm - Forms/Instructions Instructions: Femoropopliteal Bypass (DC), Upper Gastrointestinal Endoscopy (DC ), Remote Superficial Femoral Artery Endarterectomy (DC) Exam - Constitutional Vitals: Period Temp Pulse Resp BP Sys/Chavarria Pulse Ox Last 24 Hr 97.6 F-99.0 F 93-99 16-18 135-155/75-84 97-100 Vital signs are noted above. Heart is regular with a soft systolic murmur. Lungs are clear anteriorly. Abdomen has some minimal tenderness to palpation, without any mass. She is able to move the right leg and both upper extremities normally. The left leg remains weak. She is awake and alert Discharge Results Procedures and tests throughout hospitalization: Pending Orders 12/22/16 12:01 Blood Culture Stat Labs on day of discharge: Labs from last 24 hours 12/26/16 12/25/16 12/25/16 06:32 19:49 15:55 POC Glucose 85 201 H 88 Preliminary micro results at discharge 12/22/16 12:01 Blood Culture - Preliminary Blood No growth at 3 days 12/22/16 12:01 Blood Culture - Preliminary Blood No growth at 3 days DS: Provider Date of admission: 12/10/16 14:05 Primary care physician: . No PCP Attending physician on admission: Bipin Bañuelos MD Consults: 12/10/16 16:00 Consult to Physician [CONS] Routine Comment: anticoagulation assistance Consulting Provider: Levi Webster Consulting Provider Notified: Yes When should Consulting Provider be notified: Now Person Notified: franklin vernon Date Notified: 12/11/16 Time Notified: 08:45 Consult to Physician [CONS] Routine Comment: vascular consult Consulting Provider: Kristopher Gibson Consulting Provider Notified: Yes When should Consulting Provider be notified: Now Person Notified: tamiko vernon Date Notified: 12/11/16 Time Notified: 08:45 12/14/16 14:00 Consult to Physician [CONS] Routine Comment: GIB oon anticoagulation Consulting Provider: Consult to Specialist Group: Gastroenterology When should Consulting Provider be notified: Now Person Notified: manish Date Notified: 12/14/16 Time Notified: 15:01 12/14/16 14:51 Consult to Physician [CONS] Routine Comment: Consulting Provider: 12/17/16 08:52 Consult to Physical Therapy [CONS] Routine Reason for Physical Therapy: Evaluate and Treat 12/19/16 13:41 Consult to Physician [CONS] Routine Comment: Dr. Maldonado talked to Dr. Aviles Consulting Provider: Consulting Provider Notified: Yes Consult to Specialist Group: Oral Surgery Person Notified: Dr. Aviles Date Notified: 12/19/16 Time Notified: 14:19 Consult Notification Comment: Dr. Aviles aware, notified of labs WNL. He does not plan on pulling any teeth with other medical problems at this time. 12/21/16 08:35 Consult to Case Mgmt/Social Srvs [CONS] Routine Reason for Case Mgmt/Social Srvs: Discharge Planning 12/21/16 08:51 OT [Consult to Occupational Therapy] [CONS] Routine Reason for Occupational Therapy: Evaluate and Treat Start Therapy: Today 12/22/16 08:29 Consult to Case Mgmt/Social Srvs [CONS] Routine Reason for Case Mgmt/Social Srvs: Rehab Consult Comment: anjali morgan [place] 12/22/16 08:30 Consult to Occupational Therapy [CONS] Routine Reason for Occupational Therapy: Evaluate and Treat Consult to Physical Therapy [CONS] Routine Reason for Physical Therapy: Evaluate and Treat Discharging clinician: Shar Chandra MD Expected date of discharge: 12/26/16
[2016-12-26 11:40] VITALS: BP 164/94
== END 2016-12-26 15:02 | DRG 229 ==
LOC: EDBD → EDUNIT# → N.ED 10:06 → N.EDINP 14:05 → SUATTDRO 14:05 → N.EDINP 15:00 → N.3E 15:56 → N.CC 12-14 10:20 → N.3E 12-21 16:11
PROVIDERS: ADMIT Hospitalist; ATTEND Internal Medicine Geriatric Medicine
PROC: IRURORE (2016-12-15 07:35)

== ENCOUNTER 2017-01-09 10:55 | Inpatient (IN) ==
[2017-01-09] MEDS ORDERED: ONDANSETRON 4 MG/2 ML VIAL IV STA (11:08)
[2017-01-09] MEDS ORDERED: PANTOPRAZOLE 40 MG VIAL IV STA (11:08)
[2017-01-09] MEDS ORDERED: SODIUM CHLORIDE 0.9% 1,000 ML IV STA (11:08)
--- NOTE | 2017-01-09 11:23 | Emergency Department Note ---
Brett Conner Hilary, am scribing for, and in the presence of, Mohit Bullock MD 11: 20. Ara Conner James D, MD, personally performed the services described in this documentation, ascribed by Niru West in my presence, and it is both accurate and complete . Arrival - Arrival Chief Complaint: GI Bleed/Rectal Stated Complaint: GI bleed ED Nursing Triage Note: c/o n/v for 2 days. Patient states that yesterday she started throwing up coffee ground emesis. Patient also states that she is also having blood in her stool. Mode of Arrival: Stretcher Limitations: No Limitations Source: Patient, RN Notes Reviewed Time Seen by Provider: 01/09/17 11:08 - History of Present Illness HPI Narrative: Pt is a 41 y/o female brought to the ED via EMS with c/o nausea and vomiting which onset 2 days ago. Pt confirms sharp abdominal pain, melena, hematochezia, hematemesis but denies fever. Pt has a PMHx of HTN, PVD, NIDDM, Dyslipidemia, CVA, Peripheral Neuropathy, clotting problems, MRSA, and Pancreatitis. No other complaints or problems stated in the ED. Onset (ago): day(s) Consistency: constant Severity: moderate Severity scale (1-10): 3 Quality: sharp Allergies/Adverse Reactions: Allergies Allergy/AdvReac Type Severity Reaction Status Date / Time No Known Allergies Allergy Unverified 01/09/17 11:07 Home Medications: Home Medications Medication Instructions Recorded Confirmed Type Atorvastatin [Lipitor] 20 mg PO BEDTIME #30 tablet 07/29/15 01/09/17 Rx Lisinopril [Prinivil] 40 mg PO DAILY #30 tablet 07/29/15 01/09/17 Rx glyBURIDE [Diabeta] 5 mg PO BID W/MEALS #60 tablet 07/29/15 01/09/17 Rx Nicotine 21 mg/24 Hr Patch 1 patch TRANSDERM DAILY #30 patch 12/01/16 01/09/17 Rx [Nicoderm CQ 21 mg/24 hr Patch] Carvedilol [Coreg] 25 mg PO BID #60 tablet 12/08/16 01/09/17 Rx Apixaban [Eliquis] 5 mg PO BID #60 tablet 12/22/16 01/09/17 Rx Alum/Mag/Simeth Max Str Liquid 30 ml PO Q6H PRN 12/26/16 01/09/17 Rx [Mylanta Max Strength Liquid] Metoclopramide Tab [Reglan Tab] 10 mg PO ACHS tablet 12/26/16 01/09/17 Rx Zaleplon [Sonata] 10 mg PO BEDTIME PRN capsule 12/26/16 01/09/17 Rx metFORMIN [Glucophage] 500 mg PO DAILY W/BREAKFAST tablet 12/26/16 01/09/17 Rx oxyCODONE/ACETAMINOPHEN 5-325 1 tablet PO Q6H #10 tablet 01/07/17 01/09/17 Rx [Percocet 5-325] Aspirin EC Tab 81 mg PO QAM 01/09/17 01/09/17 History Docusate Sodium Cap [Colace Cap] 100 mg PO BID PRN 01/09/17 01/09/17 History FLUoxetine [PROzac] 20 mg PO QAM 01/09/17 01/09/17 History Review of System - Review of System 12 point system: reviewed and no additional remarkable complaints except as stated - Review of System Constitutional: Absent: fever Gastrointestinal: Present: abdominal pain, nausea, hematemesis, hematochezia Medical,Surgical,& Family Hx - Medical History Cardio: History of: Hypertension, PVD (VASCULAR STENTS 2017 TO LEFT LEG), Cardiovascular Problems (Left apical thrombus) Neurology: History of: Cerebrovascular Accident (2016- right side deficit), Peripheral Neuropathy No history of: Seizures HEENT: History of: Eye Problem (GLASSES) Endocrine: History of: Diabetes Mellitus (NIDDM) (since 1996, states didn't take insulin only pills at home), Dyslipidemia Respiratory: No history of: Respiratory Problems Genitourinary: History of: Recurring Urinary Tract Infections Gastrointestinal: History of: GERD (Since 2006), Pancreatitis (2006) Musculoskeletal: History of: Amputation (5th toe on left foot), Back/Neck Problems, Musculoskeletal Problems (ARTHRITIS.) Hematology: History of: Clotting Problems (Blood clots in legs & heart- december 2016) Reproductive: History of: Abnormal Pap Smear (2011) Other: History of: MRSA (Left foot), Miscellaneous Medical Problems (DVT 12/2016) - Surgical History Cardiac Surgeries: Patient Denies: Femoral-Popliteal Bypass Graft, Cardiac Catheterization, Cardiac Surgery, Carotid Endarterectomy, Internal Defibrillator, Vascular Access Devices Thoracic Surgeries: Patient denies;: Kidney (Renal Surgery), Lithotripsy, Nephrectomy, Organ Transplant, Lobectomy Neurologic Surgeries: Patient denies: Neurologic Surgery HEENT Surgeries: Patient denies: Carotid Endarterectomy, Eye Surgery, Thyroid Surgery, Tonsilectomy & Adenoidectomy Abdominal Surgeries: Surgical HX of: Abdominal Surgery, Cholecystectomy (2013), Colonoscopy Patient denies: Splenectomy Reproductive Surgeries: Patient denies;: Breast Surgery, Section, Cystoscopy, Dilation and Curettage, Genitourinary Surgery, Gynecologic Surgery, Hysterectomy, Tubal Ligation Orthopedic Surgeries: Patient denies;: Implanted Devices, Orthopedic Surgery, Spinal Surgery, Total Hip Replacement, Total Knee Replacement - Family History Family History: Reports;: Family Cancer (uncle-colon, aunt-breast, aunt-leukemia ), Family Diabetes (Father), Family Heart Disease (Mother- ID), Family Hypertension (Mother), Family Stroke (Mother) Denies;: Family Anesthesia Reaction, Family Psychiatric Problems - Social History Smoking Status: Current every day smoker Frequency of Alcohol Use: None Type of Drug Use: None Exam Physical Examination: GENERAL: This is a chronically ill appearing black female in no apparent distress. VITAL SIGNS: Temperature: 96.9 Pulse: 101 Respiratory: 10 Blood Pressure: 219 /103 O2 Sat: 100 HEENT: Head is normocephalic and atraumatic. Pupils are equally round and reactive to light. Extraocular movement are intact. Oropharynx is benign with moist mucous membranes. NECK: Neck is soft and supple without tenderness. There are no masses. There is no lymphadenopathy. LUNGS: Lungs are clear to auscultation bilaterally. Chest rises symmetrically. There is no chest wall tenderness. CV: Heart is regular rate and rhythm without murmurs, rubs, or gallops. ABDOMEN: Abdomen is soft, non-tender to palpation. There are no abnormal masses palpated. There is no organomegaly. Bowel sounds are present and active. SKIN: Skin is warm and dry. No rash. EXTREMITIES: Patient has full range of motion without tenderness. There is no pedal edema. Surgical incision of the medial portion of left knee with purulent drainage. NEUROLOGIC: Awake, alert, and oriented x4. Cranial nerves II through XII are grossly intact. There are no motorsensory deficits. PSYCHIATRIC: Normal affect. Normal mood. Vital Signs: Vital Signs Temperature 96.9 F L 01/09/17 10:55 Pulse Rate 101 H 01/09/17 10:55 Respiratory Rate 10 L 01/09/17 10:55 Blood Pressure 219/103 01/09/17 10:55 O2 Sat by Pulse Oximetry 100 01/09/17 10:55 Results - Labs CBC & BMP: 01/09/17 11:49 01/09/17 11:49 Lab Results: I have reviewed the patients labs Labs: Laboratory Tests 01/09/17 11:49 INR 1.0 Laboratory Tests 01/09/17 11:49 Blood Type O POSITIVE Antibody Screen Negative - EKG EKG results: interpreted by ERMD - Impressions EKG: Sinus tachycardia with a rate of 102, LVH, nonspecific ST-T wave changes. - Diagnostic Findings Procedure: Abdominal x-ray: image reviewed by me, report reviewed by me ( unremarkable radiographic appearance of the abdomen. ), Chest x-ray: image reviewed by me (Nonspecific gas pattern, no free air, gas in the rectum.) Disposition Clinical Impression: Acute upper GI bleed, Diabetes mellitus, Peripheral vascular disease, Nicotine addiction, Chronic anticoagulation, Left ventricular apical thrombus Case discussed with: patient Disposition: Still a Patient Condition: Guarded
--- NOTE | 2017-01-09 11:31 | XRay Report ---
Exam: 2 view abdomen Exam date: January 09, 2017 1122 hours Indication: Abdominal pain Comparison: Relevant comparison images not available Findings: Bowel gas pattern and visceral shadows are normal. Note made of prior cholecystectomy. No abnormal calcifications within the abdomen or pelvis. No acute osseous abnormalities. Visualized lung bases are unremarkable. Impression: Unremarkable radiographic appearance of the abdomen PROCEDURE INTERPRETED AT [facility] DEPARTMENT OF RADIOLOGY Final Report Signed by: Seth Araiza
[2017-01-09] MEDS ORDERED: HYDROmorphone 2 MG/1 ML VIAL IV STA (11:33)
--- NOTE | 2017-01-09 11:33 | EKG Report ---
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
[2017-01-09] MEDS ORDERED: PANTOPRAZOLE 40 MG VIAL IV ONE (11:35)
[2017-01-09] MEDS ORDERED: ONDANSETRON 4 MG/2 ML VIAL ONE (11:35)
[2017-01-09] MEDS ORDERED: HYDROmorphone 2 MG/1 ML VIAL ONE (11:41)
--- NOTE | 2017-01-09 11:49 | XRay Report ---
Portable chest January 09, 2017 at 1121 hours Indication: Shortness of breath, cough Comparison: Not available Findings: Cardiomediastinal contours are normal. Lungs are clear bilaterally. No acute osseous abnormalities. Visualized upper abdomen demonstrates no acute pathology. Impression: Normal chest PROCEDURE INTERPRETED AT [facility] DEPARTMENT OF RADIOLOGY Final Report Signed by: Seth Araiza
[2017-01-09 12:25] LABS: Basophils % 0.2 % (0.0-0.8); Hematocrit 33.6 VOL% (35.7-47.0); Hemoglobin 11.2 GM/DL (12.0-16.0); Immature Granulocytes % 0.4 %; Immature Granulocytes Absolute 0.03 #; Lymphocytes # 1.5 10*3/uL (1.4-4.0); Lymphocytes % 17.9 % (21.3-54.2); Mean Corpuscular HGB Conc 33.3 GM/DL (32-36); Mean Corpuscular Hemoglobin 30 PG (27-34); Mean Corpuscular Volume 89.8 FL (87-102); Mean Platelet Volume 10.4 FL (9.6-12.0); Monocytes # 0.8 10*3/uL (0.11-0.8); Monocytes % 10.2 % (1.7-12.7); Neutrophils # 5.9 10*3/uL (1.4-7.4); Neutrophils % 71.3 % (38.7-73.9); Platelet Count 365 T/CUMM (130-400); Red Blood Count 3.74 MC/CUMM (3.8-5.5); Red Cell Distribution Width 14.4 % (9.3-17.3); White Blood Count 8.3 T/CUMM (4-12)
[2017-01-09 12:51] LABS: Partial Thromboplastin Time 26.3 SECS (0-40)
[2017-01-09 13:07] LABS: Albumin 2.6 G/DL (3.4-5.0); Bilirubin,Total 0.5 MG/DL (0.2-1.0); Calcium 9.8 MG/DL (8.5-10.1); Potassium 4.1 MMOL/L (3.5-5.1); Total Protein 9.7 G/DL (6.4-8.3)
[2017-01-09] MEDS ORDERED: ACETAMINOPHEN 325 MG TABLET PO PRN ×2 (14:00)
[2017-01-09] MEDS ORDERED: PROMETHAZINE 25 MG/1 ML VIAL IM PRN (14:00)
[2017-01-09] MEDS ORDERED: diphenhydrAMINE CAP 25 MG CAPSULE PO PRN (14:00)
--- NOTE | 2017-01-09 14:13 | Hospitalist History & Physical ---
Assessment and Plan - Time spent with patient Time spent with patient: Greater than 30 minutes (1) Acute GI bleeding Status: Acute Assessment and plan: 41-year-old -Thai female with history of diabetes, hypertension, hypercoagulable state status post multiple cerebral infarctions, recent left lower extremity bypass due to severe peripheral arterial disease admitted by the hospitalist service with GI bleeding. Patient will be admitted to the ICU with serial H&H's. Her H&H is stable at this point in time so we will type and screen and hold [address] Guthrie who has seen her on her previous admission. IV fluids, pain and nausea control. This is a difficult situation because patient needs to be anticoagulated due to her history and previous vascular surgery. Will hold her Eliquis and her aspirin for right now along with her diabetes medications and will start her on sliding scale insulin. Dr. Sommers we will see and examine patient and further recommendations to follow. Current Visit: Yes (2) Hypercoagulable state Status: Acute Current Visit: Yes (3) Chronic anticoagulation Status: Acute Current Visit: Yes (4) Diabetes mellitus Status: Acute Current Visit: Yes (5) Hypertension Status: Chronic Current Visit: No Qualifiers: Hypertension type: essential hypertension Qualified Code(s): I10 - Essential (primary) hypertension (6) Severe peripheral arterial disease Status: Chronic Current Visit: No History of Present Illness Chief complaint: Vomiting blood History of present illness: Ms. Desai is a 41 year old -Thai female with history of complicated hypercoagulable state, peripheral vascular disease status post left lower extremity bypass on Eliquis, hypertension, and diabetes presenting to the ED with a 3 day history of vomiting and defecating blood. Patient states proximally 3 days ago she started vomiting coffee-ground emesis and shortly thereafter she started having dark tarry BMs. She states it has worsened over period of time and now she is having some shortness of breath and abdominal pain along with it she feels like she is febrile. Patient had just been discharged on 12/26/2016 to [facility] after she was admitted with hypercoagulable state with multiple cerebral infarctions and revascularization procedure by Dr. Gibson on her left lower extremity. Patient is afebrile and she is mildly tachycardic, blood pressure okay. White count is normal with an H&H of 11.2/ 33.6 which is actually higher than her discharge H&H. Her creatinine is elevated at 1.3 and her blood sugars are 429. She has the appearance of being tired she is alert and oriented. She has diffuse mild abdominal pain in an open wound on her left medial lower thigh from her revascularization procedure. Patient states Dr. Gibson just looked at it and placed some Steri-Strips. After discussion with Dr. Bullock the ED physician and Dr. Sommers the admitting hospitalist, it was agreed patient would be admitted for further evaluation and treatment. Home Medications Medication Instructions Recorded Confirmed Type Atorvastatin [Lipitor] 20 mg PO BEDTIME #30 tablet 07/29/15 01/09/17 Rx Lisinopril [Prinivil] 40 mg PO DAILY #30 tablet 07/29/15 01/09/17 Rx glyBURIDE [Diabeta] 5 mg PO BID W/MEALS #60 tablet 07/29/15 01/09/17 Rx Nicotine 21 mg/24 Hr Patch 1 patch TRANSDERM DAILY #30 patch 12/01/16 01/09/17 Rx [Nicoderm CQ 21 mg/24 hr Patch] Carvedilol [Coreg] 25 mg PO BID #60 tablet 12/08/16 01/09/17 Rx Apixaban [Eliquis] 5 mg PO BID #60 tablet 12/22/16 01/09/17 Rx Alum/Mag/Simeth Max Str Liquid 30 ml PO Q6H PRN 12/26/16 01/09/17 Rx [Mylanta Max Strength Liquid] Metoclopramide Tab [Reglan Tab] 10 mg PO ACHS tablet 12/26/16 01/09/17 Rx Zaleplon [Sonata] 10 mg PO BEDTIME PRN capsule 12/26/16 01/09/17 Rx metFORMIN [Glucophage] 500 mg PO DAILY W/BREAKFAST tablet 12/26/16 01/09/17 Rx oxyCODONE/ACETAMINOPHEN 5-325 1 tablet PO Q6H #10 tablet 01/07/17 01/09/17 Rx [Percocet 5-325] Aspirin EC Tab 81 mg PO QAM 01/09/17 01/09/17 History Docusate Sodium Cap [Colace Cap] 100 mg PO BID PRN 01/09/17 01/09/17 History FLUoxetine [PROzac] 20 mg PO QAM 01/09/17 01/09/17 History Allergies Allergy/AdvReac Type Severity Reaction Status Date / Time No Known Allergies Allergy Unverified 01/09/17 11:07 Medical,Surgical,& Family Hx - Medical History Cardio: History of: Hypertension, PVD (VASCULAR STENTS 2017 TO LEFT LEG), Cardiovascular Problems (Left apical thrombus) Neurology: History of: Cerebrovascular Accident (2015- right side deficit), Peripheral Neuropathy No history of: Seizures HEENT: History of: Eye Problem (GLASSES) Endocrine: History of: Diabetes Mellitus (NIDDM) (since 1996, states didn't take insulin only pills at home), Dyslipidemia Respiratory: No history of: Respiratory Problems Genitourinary: History of: Recurring Urinary Tract Infections Gastrointestinal: History of: GERD (Since 2006), Pancreatitis (2006) Musculoskeletal: History of: Amputation (5th toe on left foot), Back/Neck Problems, Musculoskeletal Problems (ARTHRITIS.) Hematology: History of: Clotting Problems (Blood clots in legs & heart- december 2016) Reproductive: History of: Abnormal Pap Smear (2011) Other: History of: MRSA (Left foot), Miscellaneous Medical Problems (DVT 12/2016) - Surgical History Cardiac Surgeries: Patient Denies: Femoral-Popliteal Bypass Graft, Cardiac Catheterization, Cardiac Surgery, Carotid Endarterectomy, Internal Defibrillator, Vascular Access Devices Thoracic Surgeries: Patient denies;: Kidney (Renal Surgery), Lithotripsy, Nephrectomy, Organ Transplant, Lobectomy Neurologic Surgeries: Patient denies: Neurologic Surgery HEENT Surgeries: Patient denies: Carotid Endarterectomy, Eye Surgery, Thyroid Surgery, Tonsilectomy & Adenoidectomy Abdominal Surgeries: Surgical HX of: Abdominal Surgery, Cholecystectomy (2012), Colonoscopy Patient denies: Splenectomy Reproductive Surgeries: Patient denies;: Breast Surgery, Section, Cystoscopy, Dilation and Curettage, Genitourinary Surgery, Gynecologic Surgery, Hysterectomy, Tubal Ligation Orthopedic Surgeries: Patient denies;: Implanted Devices, Orthopedic Surgery, Spinal Surgery, Total Hip Replacement, Total Knee Replacement - Family History Family History: Reports;: Family Cancer (uncle-colon, aunt-breast, aunt-leukemia ), Family Diabetes (Father), Family Heart Disease (Mother- [place]), Family Hypertension (Mother), Family Stroke (Mother) Denies;: Family Anesthesia Reaction, Family Psychiatric Problems - Social History Smoking Status: Current every day smoker Frequency of Alcohol Use: None Type of Drug Use: None Marital Status: Single Lives With:: Alone Functional capacity: independent ambulation 12 point system: reviewed and no additional remarkable complaints except as stated Exam - Constitutional Vitals: Period Temp Pulse Resp BP Sys/Chavarria Pulse Ox Last 24 Hr 96.9 F-96.9 F 101-101 10-10 219-219/103-103 100 Exam: Constitutional System: Mild distress. No tremulousness. Head: Normocephalic, atraumatic. Ears, Nose and Throat System: No evidence of Otitis or Mastoiditis. No epistaxis or discharge Eyes System: Pupils equal, round, and reactive. Extraocular muscles intact. Neck: Supple, without adenopathy, No jugular venous distention. No thyromegaly, neck mass, or prior surgery apparent. Respiratory System: Chest clear to auscultation. Cardiovascular System: Heart with tachycardic rate and rhythm. No murmur. GI System: Abdomen soft, diffusely tender throughout. Normo active bowel sounds present. Musculoskeletal System: limbs with no pedal edema. Doppler distal pulses. Open wound left distal medial thigh with clean Steri-Strips and dry dressing, no signs of infection Neurological System: No discernable sensory deficit. No aphasia Psychiatric System: Conversation is rational Results - Labs CBC & BMP: 01/09/17 11:49 01/09/17 11:49 Lab Results: I have reviewed the past 24 hour labs - EKG EKG shows: tachycardia - Impressions EKG reading sinus tachycardia with left ventricular hypertrophy and ST to T changes - Diagnostic Findings Procedure: Chest x-ray: report reviewed by me (No acute process) Quality Measures - VTE Contraindication to Pharmacological VTE Prophylaxis: Active Bleeding Contraindication to Mechanical VTE Prophylaxis: Ischemic Vascular Disease
[2017-01-09] MEDS ORDERED: DEXTROSE 50% 25 GM/50 ML VIAL IV PRN (14:21)
[2017-01-09] MEDS ORDERED: GLUCAGON 1 MG VIAL IM PRN (14:21)
--- NOTE | 2017-01-09 14:33 | Gastrointestinal Consult Note ---
<Melba Armijo - Last Filed: 01/09/17 14:26> Assessment and Plan (1) Acute GI bleeding Status: Acute Assessment and plan: 01/09-3 day history of nausea and vomiting with coffee-ground emesis and reports of melena with associated mid umbilical abdominal pain. On Eliquis with history of hypercoagulable state and recent stent placement to left lower extremity. H&H currently stable at 11.2/33.6. Recent EGD last month with no acute findings at that time. Continue to monitor serial H&H and transfuse as necessary. Eliquis currently on hold. Continue Protonix. Plan an addendum to follow Dr. Guthrie. Current Visit: Yes History of Present Illness Chief complaint: GI bleed History of present illness: Ms. Desai is a 41 year old female who was admitted to the hospital today after onset of vomiting of coffee-ground emesis and melena 3 days. Patient was recently discharged from our facility on 12/26 following a protracted inpatient stay for vascular insufficiency and hypercoagulable state. Patient underwent stent placement to her left lower extremity during that stay with successful revascularization. During that inpatient stay, patient did develop some questionable hematemesis and underwent EGD however no sources found at that time for her GI bleed. Following her recovery, patient was discharged to rehab therapy in which she was recently discharged on 01/05. Upon discharge, she was sent home on Eliquis which she states she has been taking as ordered. She states approximately 3 days ago, not long after returning home from rehab, she developed onset of nausea and began having some vomiting with some dark coffee- ground emesis. She also states that about the same time she had onset of melena with dark tarry stools. She has continued complaints of abdominal pain around her mid abdomen that she states is the same as it was with her last hospitalization. She denies any epigastric pain. She states that the pain does seem to be worsened with eating. She states that she has had approximately 2-3 vomiting episodes a day since onset. Her last episode was this morning in the emergency room. She states that she has not had a dark tarry stools and a couple of days however prior to discharge from rehab her stools were normal and brown in color. She states she has felt like she was possibly febrile and had chills since onset. She denies taking any NSAIDs. Her last known H&H on discharge was 03/04. H&H today is 11.2/33.6. INR is 1.0. BUN/creatinine ratio is 14. Her last known Eliquis dose was yesterday however she questions if she has not been able to keep it down due to the vomiting. Abdominal x-ray unremarkable at this time. Home Medications Medication Instructions Recorded Confirmed Type Atorvastatin [Lipitor] 20 mg PO BEDTIME #30 tablet 07/29/15 01/09/17 Rx Lisinopril [Prinivil] 40 mg PO DAILY #30 tablet 07/29/15 01/09/17 Rx glyBURIDE [Diabeta] 5 mg PO BID W/MEALS #60 tablet 07/29/15 01/09/17 Rx Nicotine 21 mg/24 Hr Patch 1 patch TRANSDERM DAILY #30 patch 12/01/16 01/09/17 Rx [Nicoderm CQ 21 mg/24 hr Patch] Carvedilol [Coreg] 25 mg PO BID #60 tablet 12/08/16 01/09/17 Rx Apixaban [Eliquis] 5 mg PO BID #60 tablet 12/22/16 01/09/17 Rx Alum/Mag/Simeth Max Str Liquid 30 ml PO Q6H PRN 12/26/16 01/09/17 Rx [Mylanta Max Strength Liquid] Metoclopramide Tab [Reglan Tab] 10 mg PO ACHS tablet 12/26/16 01/09/17 Rx Zaleplon [Sonata] 10 mg PO BEDTIME PRN capsule 12/26/16 01/09/17 Rx metFORMIN [Glucophage] 500 mg PO DAILY W/BREAKFAST tablet 12/26/16 01/09/17 Rx oxyCODONE/ACETAMINOPHEN 5-325 1 tablet PO Q6H #10 tablet 01/07/17 01/09/17 Rx [Percocet 5-325] Aspirin EC Tab 81 mg PO QAM 01/09/17 01/09/17 History Docusate Sodium Cap [Colace Cap] 100 mg PO BID PRN 01/09/17 01/09/17 History FLUoxetine [PROzac] 20 mg PO QAM 01/09/17 01/09/17 History Allergies Allergy/AdvReac Type Severity Reaction Status Date / Time No Known Allergies Allergy Unverified 01/09/17 11:07 Medical,Surgical,& Family Hx - Medical History Cardio: History of: Hypertension, PVD (VASCULAR STENTS 2017 TO LEFT LEG), Cardiovascular Problems (Left apical thrombus) Neurology: History of: Cerebrovascular Accident (2016- right side deficit), Peripheral Neuropathy No history of: Seizures HEENT: History of: Eye Problem (GLASSES) Endocrine: History of: Diabetes Mellitus (NIDDM) (since 1996, states didn't take insulin only pills at home), Dyslipidemia Respiratory: No history of: Respiratory Problems Genitourinary: History of: Recurring Urinary Tract Infections Gastrointestinal: History of: GERD (Since 2006), Pancreatitis (2006) Musculoskeletal: History of: Amputation (5th toe on left foot), Back/Neck Problems, Musculoskeletal Problems (ARTHRITIS.) Hematology: History of: Clotting Problems (Blood clots in legs & heart- december 2016) Reproductive: History of: Abnormal Pap Smear (2011) Other: History of: MRSA (Left foot), Miscellaneous Medical Problems (DVT 12/2016) - Surgical History Cardiac Surgeries: Patient Denies: Femoral-Popliteal Bypass Graft, Cardiac Catheterization, Cardiac Surgery, Carotid Endarterectomy, Internal Defibrillator, Vascular Access Devices Thoracic Surgeries: Patient denies;: Kidney (Renal Surgery), Lithotripsy, Nephrectomy, Organ Transplant, Lobectomy Neurologic Surgeries: Patient denies: Neurologic Surgery HEENT Surgeries: Patient denies: Carotid Endarterectomy, Eye Surgery, Thyroid Surgery, Tonsilectomy & Adenoidectomy Abdominal Surgeries: Surgical HX of: Abdominal Surgery, Cholecystectomy (2012), Colonoscopy Patient denies: Splenectomy Reproductive Surgeries: Patient denies;: Breast Surgery, Section, Cystoscopy, Dilation and Curettage, Genitourinary Surgery, Gynecologic Surgery, Hysterectomy, Tubal Ligation Orthopedic Surgeries: Patient denies;: Implanted Devices, Orthopedic Surgery, Spinal Surgery, Total Hip Replacement, Total Knee Replacement - Family History Family History: Reports;: Family Cancer (uncle-colon, aunt-breast, aunt-leukemia ), Family Diabetes (Father), Family Heart Disease (Mother- [place]), Family Hypertension (Mother), Family Stroke (Mother) Denies;: Family Anesthesia Reaction, Family Psychiatric Problems - Social History Smoking Status: Current every day smoker Frequency of Alcohol Use: None Type of Drug Use: None 12 point system: reviewed and no additional remarkable complaints except as stated - Constitutional Constitutional: Present: as per HPI, chills, fever(s) - EENT Eyes: Present: as per HPI Ears: Present: as per HPI Nose, mouth and throat: Present: as per HPI - Cardiovascular Cardiovascular: Present: as per HPI - Respiratory Respiratory: Present: as per HPI - Gastrointestinal Gastrointestinal: Present: as per HPI, abdominal pain, hematemesis, melena, nausea, vomiting - Genitourinary Genitourinary: Present: as per HPI - Musculoskeletal Musculoskeletal: Present: as per HPI - Neurological Neurological: Present: as per HPI - Psychiatric Psychiatric: Present: as per HPI - Endocrine Endocrine: Present: as per HPI - Hematologic/Lymphatic Hematologic/Lymphatic: Present: as per HPI Exam - Constitutional Vitals: Period Temp Pulse Resp BP Sys/Chavarria Pulse Ox Last 24 Hr 96.9 F-96.9 F 100-106 10-21 183-221/91-116 99-100 General appearance: normal weight, no acute distress - Head Head exam: Present: normal inspection, normocephalic - Eye Eye exam: Present: other (Lids and conjunctivae are unremarkable). Absent: scleral icterus - ENT ENT exam: Present: normal exam, normal oropharynx - Neck Neck exam: Present: normal inspection - Respiratory Respiratory exam: Present: clear to auscultation bilaterally. Absent: rales, rhonchi, wheezes - Cardiovascular Cardiovascular exam: Present: regular rate and rhythm. Absent: diastolic murmur , JVD, systolic murmur - GI/Abdominal GI/Abdominal exam: Present: normal bowel sounds, tenderness, soft. Absent: ascites, distended, mass, organomegaly - Extremities Exam Extremities exam: Present: normal inspection, full ROM - Back Exam Back exam: Present: normal inspection - Neurological Exam Neurological exam: Present: alert, oriented X3 - Psychiatric Psychiatric exam: Present: normal affect, normal mood - Skin Skin exam: Present: normal color, warm, dry Results - Labs CBC & BMP: 01/09/17 11:49 01/09/17 11:49 Lab Results: I have reviewed the past 24 hour labs - Diagnostic Findings Procedure: Abdominal x-ray: report reviewed by me Quality Measures - VTE Contraindication to Pharmacological VTE Prophylaxis: Active Bleeding Contraindication to Mechanical VTE Prophylaxis: Ischemic Vascular Disease <Freddie Guthrie - Last Filed: 01/09/17 19:03> History of Present Illness History of present illness: Ms. Desai is a 41 year old female Exam - Constitutional Vitals: Period Temp Pulse Resp BP Sys/Chavarria Pulse Ox Last 24 Hr 96.9 F-98.4 F 93-117 9-22 183-221/91-126 98-100 Results - Labs CBC & BMP: 01/09/17 17:04 01/09/17 11:49
[2017-01-09] MEDS: MORPHINE 2 MG/1 ML SYRINGE IV PRN ×3 (14:47→23:02)
[2017-01-09] MEDS ORDERED: MORPHINE 2 MG/1 ML SYRINGE ONE (14:47)
[2017-01-09] MEDS: SODIUM CHLORIDE 0.9% 1,000 ML IV SCH (16:42)
[2017-01-09] MEDS: PANTOPRAZOLE 40 MG VIAL IV SCH ×2 (16:50→21:42)
[2017-01-09] MEDS: LISINOPRIL 20 MG TABLET PO SCH (16:51)
[2017-01-09] MEDS: NICOTINE 21 MG/24 HR PATCH TRANSDERM SCH (16:51)
[2017-01-09] MEDS: oxyCODONE/ACETAMINOPHEN 5-325 MG TABLET PO SCH ×2 (16:51→21:41)
[2017-01-09] MEDS: CARVEDILOL 25 MG TABLET PO SCH ×2 (16:51→23:51)
[2017-01-09] MEDS ORDERED: PNEUMOCOCCAL VACCINE (13 VALENT) 0.5 ML SYRINGE IM ONE (17:08)
[2017-01-09 17:14] LABS: Hematocrit 31.1 VOL% (35.7-47.0); Hemoglobin 10.4 GM/DL (12.0-16.0)
[2017-01-09] MEDS: INSULIN LISPRO 100 UNIT/ML SUBCUT SCH (18:05)
[2017-01-09] MEDS: ATORVASTATIN 20 MG TABLET PO SCH (21:41)
[2017-01-09] MEDS: ONDANSETRON 4 MG/2 ML VIAL IV PRN (22:02)
[2017-01-09 23:02] LABS: Hematocrit 29.3 VOL% (35.7-47.0); Hemoglobin 9.7 GM/DL (12.0-16.0)
[2017-01-09] MEDS: hydrALAZINE 20 MG/1 ML VIAL IV PRN (23:48)
[2017-01-10] MEDS: SODIUM CHLORIDE 0.9% 1,000 ML IV SCH ×6 (00:08→23:21)
[2017-01-10] MEDS: ONDANSETRON 4 MG/2 ML VIAL IV PRN ×5 (01:40→23:26)
[2017-01-10] MEDS ORDERED: HYDROmorphone 2 MG/1 ML VIAL IV ONE (02:14)
[2017-01-10] MEDS: oxyCODONE/ACETAMINOPHEN 5-325 MG TABLET PO SCH ×4 (03:26→20:45)
[2017-01-10 04:11] LABS: Apearance,Urine CLOUDY (Clear); Bacteria,Urine Many /HPF (Few); Bilirubin,Urine Negative (Negative); Blood, Urine Small mg/dL (Negative); Glucose,Urine (UA) 50 mg/dL (Negative); Ketones,Urine 5 mg/dL (Negative); Nitrite,Urine Negative (Negative); Protein,Urine 100 MG/DL; RBC,Urine 2 /HPF (0-4); Urine Color Yellow (Yellow); Urine Urobilinogen < 2.0 EU/DL (0.2-1.0); WBC,Urine 130 /HPF (0-6)
[2017-01-10 05:22] LABS: Hematocrit 30.2 VOL% (35.7-47.0); Hemoglobin 10.2 GM/DL (12.0-16.0)
[2017-01-10 05:23] LABS: Basophils % 0.3 % (0.0-0.8); Eosinophils # 0.1 10*3/uL (0.0-0.87); Eosinophils % 0.5 % (0.00-10.9); Hematocrit 30.3 VOL% (35.7-47.0); Hemoglobin 10.1 GM/DL (12.0-16.0); Immature Granulocytes % 0.3 %; Immature Granulocytes Absolute 0.03 #; Lymphocytes # 2.2 10*3/uL (1.4-4.0); Lymphocytes % 18.9 % (21.3-54.2); Mean Corpuscular HGB Conc 33.3 GM/DL (32-36); Mean Corpuscular Hemoglobin 30 PG (27-34); Mean Corpuscular Volume 89.1 FL (87-102); Mean Platelet Volume 10.1 FL (9.6-12.0); Monocytes # 0.9 10*3/uL (0.11-0.8); Monocytes % 7.4 % (1.7-12.7); Neutrophils # 8.5 10*3/uL (1.4-7.4); Neutrophils % 72.6 % (38.7-73.9); Platelet Count 345 T/CUMM (130-400); Red Cell Distribution Width 14.5 % (9.3-17.3); White Blood Count 11.7 T/CUMM (4-12)
[2017-01-10 05:40] LABS: PT Patient Result 10.7 SECS
[2017-01-10] MEDS: hydrALAZINE 20 MG/1 ML VIAL IV PRN ×2 (05:52→12:17)
[2017-01-10] MEDS: MORPHINE 2 MG/1 ML SYRINGE IV PRN (05:57)
--- NOTE | 2017-01-10 07:53 | EKG Report ---
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
[2017-01-10] MEDS: INSULIN LISPRO 100 UNIT/ML SUBCUT SCH ×2 (08:45→17:17)
[2017-01-10] MEDS: PANTOPRAZOLE 40 MG VIAL IV SCH ×2 (08:45→20:51)
[2017-01-10] MEDS: NICOTINE 21 MG/24 HR PATCH TRANSDERM SCH (08:46)
[2017-01-10] MEDS: LISINOPRIL 20 MG TABLET PO SCH ×2 (08:46→15:17)
[2017-01-10] MEDS: FLUoxetine 20 MG CAPSULE PO SCH (08:46)
[2017-01-10] MEDS: CARVEDILOL 25 MG TABLET PO SCH ×3 (08:46→20:45)
--- NOTE | 2017-01-10 09:06 | Hospitalist Progress Note ---
Assessment and Plan (1) Acute GI bleeding Status: Acute Assessment and plan: The patient has had drop of hemoglobin to 10.2 after mild to moderate GI bleeding, hydration, and equilibration. She does not have indication for transfusion at this time but we will continue to monitor. The patient will continue on anticoagulant and we will treat blood pressure as required. I am been increase her narcotic pain medicine to achieve improved relief. Will consult Dr. Gibson for reevaluation of abdomen. Current Visit: Yes (2) Hypertension Status: Chronic Current Visit: No Qualifiers: Hypertension type: essential hypertension Qualified Code(s): I10 - Essential (primary) hypertension (3) History of CVA (cerebrovascular accident) Status: Chronic Current Visit: No (4) Peripheral vascular disease Status: Chronic Current Visit: No (5) Anemia Status: Acute Current Visit: No Hospitalist: Subjective Interval history: The patient complains of ongoing abdominal pain. She refers to the suprapubic mid abdomen as the origin of her pain. The patient is not complaining of shortness of breath or angina at present. She is not having any diaphoresis. The patient was given morphine with some improvement but incomplete relief. Research of old records from her last hospital stay detailed Dr. Webster's note where he found all of her hypercoagulable workup to be within normal limits. The patient has no stigmata of bleeding at this time. Exam - Constitutional Vitals: Period Temp Pulse Resp BP Sys/Chavarria Pulse Ox Last 24 Hr 96.9 F-98.9 F 88-117 9-22 160-221/81-126 97-100 Exam: Constitutional System: Moderate distress. No tremulousness. The patient is growing from abdominal pain Head: Normocephalic, atraumatic. Ears, Nose and Throat System: No evidence of Otitis or Mastoiditis. No epistaxis or discharge Eyes System: Pupils equal, round, and reactive. Extraocular muscles intact. Neck: Supple, without adenopathy, No jugular venous distention. No thyromegaly , neck mass, or prior surgery apparent. Respiratory System: Chest clear to auscultation. Cardiovascular System: Heart with regular rate and rhythm. No murmur. GI System: Abdomen soft, some distention some generalized tenderness which is moderate and bilateral lower quadrants. Musculoskeletal System: limbs with trace pedal edema. Reduced distal pulses. Limbs are warm Neurological System: No discernable sensory deficit. No aphasia Results - Labs CBC & BMP: 01/10/17 04:54 01/09/17 11:49 Lab Results: I have reviewed the past 24 hour labs Quality Measures - VTE Contraindication to Pharmacological VTE Prophylaxis: Active Bleeding Contraindication to Mechanical VTE Prophylaxis: Ischemic Vascular Disease
[2017-01-10] MEDS ORDERED: LIDOCAINE 1% 5 ML VIAL ONE (10:21)
[2017-01-10] MEDS ORDERED: PROPOFOL 200 MG/20 ML VIAL IV ONE (10:21)
--- NOTE | 2017-01-10 10:27 | History and Physical Update ---
History and Physical Update - Physical Exam Mental Status: alert and oriented Heart: regular rate and rhythm Lung: clear to auscultation Abdomen: within normal limits Vitals: within normal limits
--- NOTE | 2017-01-10 10:29 | Operative Note ---
Date of procedure: 01/10/17 Pre-op diagnosis: Hematemesis and melena Procedure: EGD 41-year-old female with recurrent hematemesis and melena per history. Recent EGD was unrevealing. Now for repeat EGD due to requirements for ongoing anticoagulation. Informed consent was obtained with the patient She was sedated with MAC anesthesia per anesthesia protocol. Patient was placed in left lateral decubitus position the Olympus flexible video upper endoscope was inserted into the oral cavity under direct vision the esophagus was intubated. Findings: Esophagus-normal proximal mid esophageal mucosa distal esophagus with no significant esophagitis, varices or stricture seen. There is a small to moderate hiatal hernia. Stomach-normal insufflation. There is focal gastritis seen in the cardia but otherwise no evidence of gastritis seen throughout the stomach no stigmata of bleeding. This appears to be secondary to retching. Pylorus-normal Duodenum-normal bulb and duodenum to the proximal jejunum The procedure terminated placed our procedure well she is discharged recovery in good condition. Postop diagnosis: 1. Gastritis likely secondary to retching continue PPI treatment and observe this should be low risk for ongoing bleeding even with anticoagulation as needed. Anesthesia: MAC Surgeon / Physician: Freddie Guthrie Estimated blood loss: none Specimens: none sent Condition: stable Disposition: post procedure unit Results - Labs CBC & BMP: 01/10/17 04:54 01/09/17 11:49 Discharge Plan - Discharge Medications No Action Atorvastatin [Lipitor] 20 mg PO BEDTIME #30 tablet glyBURIDE [Diabeta] 5 mg PO BID W/MEALS #60 tablet Lisinopril [Prinivil] 40 mg PO DAILY #30 tablet Nicotine 21 mg/24 Hr Patch [Nicoderm CQ 21 mg/24 hr Patch] 1 patch TRANSDERM DAILY #30 patch Apixaban [Eliquis] 5 mg PO BID #60 tablet metFORMIN [Glucophage] 500 mg PO DAILY W/BREAKFAST tablet Zaleplon [Sonata] 10 mg PO BEDTIME PRN capsule PRN Reason: Sleep oxyCODONE/ACETAMINOPHEN 5-325 [Percocet 5-325] 1 tablet PO Q6H #10 tablet Docusate Sodium Cap [Colace Cap] 100 mg PO BID PRN PRN Reason: STOOL SOFTENER Aspirin EC Tab 81 mg PO QAM Carvedilol [Coreg] 25 mg PO BID #60 tablet Alum/Mag/Simeth Max Str Liquid [Mylanta Max Strength Liquid] 30 ml PO Q6H PRN PRN Reason: Dyspepsia Metoclopramide Tab [Reglan Tab] 10 mg PO ACHS tablet FLUoxetine [PROzac] 20 mg PO QAM - Follow Up or Referral - Forms/Instructions
--- NOTE | 2017-01-10 11:15 | Anesthesia Post-Op ---
Anesthesia Post OP - Post Ansesthetic Evaluation Patient seen in post op: Yes Resp: within normal limits CV: within normal limits Mental: within normal limits Temp: within normal limits [id number]: within normal limits Nausea and Vomiting: within normal limits Pain: within normal limits
[2017-01-10] MEDS: HYDROmorphone 2 MG/1 ML VIAL IV PRN ×4 (11:19→23:25)
--- NOTE | 2017-01-10 11:25 | Vascular Surgery Consult Note ---
History of Present Illness Chief complaint: severe pvd History of present illness: Ms. Desai is a 41 year old female Tamiko Desai is an unfortunate 41-year-old woman with diabetes. Hypertension a long history of cigarette use. 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 She made a reasonable recovery from that but apparently has had nausea and vomiting since that time and intermittent abdominal pain. She was also found to have a right iliac occlusion that was mildly symptomatic and I had recommended cigarette cessation prior to intervention. She was really referred to me in approximately September of this year made with the the occlusion of the right common iliac artery and significant stenosis involving the left with left superficial femoral occlusion. She had had an ischemic left fifth toe with Dr. Duque and amputated was not healing well. She returned in late November for arteriography and angioplasty stenting and at that time we found the distal aorta and the left common iliac and thrombosed as well Dr. Tse I were able to do thrombolyzes and recanalized the right common iliac as well as angioplasty of the left common iliac restore flow. She was discharged but returned with severe hypertension nausea and vomiting and during the second hospitalization was found to have thrombosed the left iliac system again and had progressive ischemia of the left lower extremity eventually we were able to do bilateral common iliac angioplasty and stenting and then I approximately 3 weeks ago did a left femoral-popliteal bypass above the knee with PTFE as the vein was not usable. 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 She was at rehab until last Sunday and again use of the foot but did need a splint the toe has healed very well. Did have a modest hematoma that drained spontaneously from the left popliteal incision this is essentially completely healed now although there is still some old bloody fluid draining and a slight opening of the incision but no sign of infection. She has been readmitted at this time with nausea vomiting hematemesis reported still has lower abdominal pain which is constant. She has had multiple CT scans this past summer and there have been no findings of diverticulitis tumor ischemic colitis to clearly identify the source of her abdominal pain. At this point in time she is sewn has been on Eliquis due to the finding of a left apical or left ventricular apical thrombus of unclear origin. She has been evaluated by Dr. Webster for hypercoagulable state and there have been no clear findings. At this point time our best thoughts have been to continue to 81 mg aspirin and Eliquis and it may still be necessary. I do note a fairly minimal drop in her hemoglobin and hematocrit with this episode of hematemesis. I will continue to follow her peripheral vascular disease and general care but at this point I do not find any clear evidence of problems that I can clear surgically. Home Medications Medication Instructions Recorded Confirmed Type Atorvastatin [Lipitor] 20 mg PO BEDTIME #30 tablet 07/29/15 01/09/17 Rx Lisinopril [Prinivil] 40 mg PO DAILY #30 tablet 07/29/15 01/09/17 Rx glyBURIDE [Diabeta] 5 mg PO BID W/MEALS #60 tablet 07/29/15 01/09/17 Rx Nicotine 21 mg/24 Hr Patch 1 patch TRANSDERM DAILY #30 patch 12/01/16 01/09/17 Rx [Nicoderm CQ 21 mg/24 hr Patch] Carvedilol [Coreg] 25 mg PO BID #60 tablet 12/08/16 01/09/17 Rx Apixaban [Eliquis] 5 mg PO BID #60 tablet 12/22/16 01/09/17 Rx Alum/Mag/Simeth Max Str Liquid 30 ml PO Q6H PRN 12/26/16 01/09/17 Rx [Mylanta Max Strength Liquid] Metoclopramide Tab [Reglan Tab] 10 mg PO ACHS tablet 12/26/16 01/09/17 Rx Zaleplon [Sonata] 10 mg PO BEDTIME PRN capsule 12/26/16 01/09/17 Rx metFORMIN [Glucophage] 500 mg PO DAILY W/BREAKFAST tablet 12/26/16 01/09/17 Rx oxyCODONE/ACETAMINOPHEN 5-325 1 tablet PO Q6H #10 tablet 01/07/17 01/09/17 Rx [Percocet 5-325] Aspirin EC Tab 81 mg PO QAM 01/09/17 01/09/17 History Docusate Sodium Cap [Colace Cap] 100 mg PO BID PRN 01/09/17 01/09/17 History FLUoxetine [PROzac] 20 mg PO QAM 01/09/17 01/09/17 History Allergies Allergy/AdvReac Type Severity Reaction Status Date / Time No Known Allergies Allergy Unverified 01/09/17 11:07 Medical,Surgical,& Family Hx - Medical History Cardio: History of: Hypertension, PVD (VASCULAR STENTS 2017 TO LEFT LEG), Cardiovascular Problems (Left apical thrombus) Neurology: History of: Cerebrovascular Accident (2016- right side deficit), Peripheral Neuropathy No history of: Seizures HEENT: History of: Eye Problem (GLASSES) Endocrine: History of: Diabetes Mellitus (NIDDM) (since 1996, states didn't take insulin only pills at home), Dyslipidemia Respiratory: No history of: Respiratory Problems Genitourinary: History of: Recurring Urinary Tract Infections Gastrointestinal: History of: GERD (Since 2006), Pancreatitis (2006) Musculoskeletal: History of: Amputation (5th toe on left foot), Back/Neck Problems, Musculoskeletal Problems (ARTHRITIS.) Hematology: History of: Clotting Problems (Blood clots in legs & heart- december 2016) Reproductive: History of: Abnormal Pap Smear (2011) Other: History of: MRSA (Left foot), Miscellaneous Medical Problems (DVT 12/2016) - Surgical History Cardiac Surgeries: Patient Denies: Femoral-Popliteal Bypass Graft, Cardiac Catheterization, Cardiac Surgery, Carotid Endarterectomy, Internal Defibrillator, Vascular Access Devices Thoracic Surgeries: Patient denies;: Kidney (Renal Surgery), Lithotripsy, Nephrectomy, Organ Transplant, Lobectomy Neurologic Surgeries: Patient denies: Neurologic Surgery HEENT Surgeries: Patient denies: Carotid Endarterectomy, Eye Surgery, Thyroid Surgery, Tonsilectomy & Adenoidectomy Abdominal Surgeries: Surgical HX of: Abdominal Surgery, Cholecystectomy (2012), Colonoscopy Patient denies: Splenectomy Reproductive Surgeries: Patient denies;: Breast Surgery, Section, Cystoscopy, Dilation and Curettage, Genitourinary Surgery, Gynecologic Surgery, Hysterectomy, Tubal Ligation Orthopedic Surgeries: Patient denies;: Implanted Devices, Orthopedic Surgery, Spinal Surgery, Total Hip Replacement, Total Knee Replacement - Family History Family History: Reports;: Family Cancer (uncle-colon, aunt-breast, aunt-leukemia ), Family Diabetes (Father), Family Heart Disease (Mother- MA), Family Hypertension (Mother), Family Stroke (Mother) Denies;: Family Anesthesia Reaction, Family Psychiatric Problems - Social History Smoking Status: Current every day smoker Frequency of Alcohol Use: None Type of Drug Use: None Exam - Constitutional Vitals: Period Temp Pulse Resp BP Sys/Chavarria Pulse Ox Last 24 Hr 98.1 F-98.9 F 88-117 9-22 155-221/81-126 97-100 Quality Measures - VTE Contraindication to Pharmacological VTE Prophylaxis: Active Bleeding Contraindication to Mechanical VTE Prophylaxis: Ischemic Vascular Disease Results - Labs CBC & BMP: 01/10/17 04:54 01/09/17 11:49
[2017-01-10] MEDS: ENALAPRIL 2.5 MG/2 ML VIAL IV PRN (14:39)
[2017-01-10] MEDS ORDERED: cloNIDine 0.3 MG/24 HR PATCH TRANSDERM SCH (15:00)
--- NOTE | 2017-01-10 15:08 | Hospitalist Progress Note ---
Assessment and Plan (1) Acute GI bleeding Status: Acute Assessment and plan: The patient has had drop of hemoglobin to 10.2 after mild to moderate GI bleeding, hydration, and equilibration. She does not have indication for transfusion at this time but we will continue to monitor. The patient will continue on anticoagulant and we will treat blood pressure as required. I will increase her narcotic pain medicine to achieve improved relief. Going to increase blood pressure medication to improve tachycardia and hypertension. Will reevaluate tomorrow and transfer to the floor if possible. Current Visit: Yes (2) Hypertension Status: Chronic Current Visit: No Qualifiers: Hypertension type: essential hypertension Qualified Code(s): I10 - Essential (primary) hypertension (3) History of CVA (cerebrovascular accident) Status: Chronic Current Visit: No (4) Peripheral vascular disease Status: Chronic Current Visit: No (5) Anemia Status: Acute Current Visit: No Hospitalist: Subjective Interval history: The patient complains of infraumbilical abdominal pain. The patient had esophagogastroduodenoscopy today. Gastric erosions were seen on EGD but no bleeding. Exam - Constitutional Vitals: Period Temp Pulse Resp BP Sys/Chavarria Pulse Ox Last 24 Hr 98.1 F-98.9 F 88-117 9-22 155-220/81-126 97-100 Exam: Constitutional System: Moderate distress. No tremulousness. The patient is growing from abdominal pain Head: Normocephalic, atraumatic. Ears, Nose and Throat System: No evidence of Otitis or Mastoiditis. No epistaxis or discharge Eyes System: Pupils equal, round, and reactive. Extraocular muscles intact. Neck: Supple, without adenopathy, No jugular venous distention. No thyromegaly , neck mass, or prior surgery apparent. Respiratory System: Chest clear to auscultation. Cardiovascular System: Heart with regular rate and rhythm. No murmur. GI System: Abdomen soft, some distention some generalized tenderness which is moderate and bilateral lower quadrants. Musculoskeletal System: limbs with trace pedal edema. Reduced distal pulses. Limbs are warm Neurological System: No discernable sensory deficit. No aphasia Results - Labs CBC & BMP: 01/10/17 04:54 01/09/17 11:49 Lab Results: I have reviewed the past 24 hour labs Quality Measures - VTE Contraindication to Pharmacological VTE Prophylaxis: Active Bleeding Contraindication to Mechanical VTE Prophylaxis: Ischemic Vascular Disease
[2017-01-10] MEDS: ATORVASTATIN 20 MG TABLET PO SCH (20:45)
[2017-01-11] MEDS: oxyCODONE/ACETAMINOPHEN 5-325 MG TABLET PO SCH ×4 (02:52→20:55)
[2017-01-11] MEDS: SODIUM CHLORIDE 0.9% 1,000 ML IV SCH ×4 (02:53→14:11)
[2017-01-11] MEDS: hydrALAZINE 20 MG/1 ML VIAL IV PRN (03:44)
[2017-01-11] MEDS: ENALAPRIL 2.5 MG/2 ML VIAL IV PRN (04:35)
[2017-01-11 05:21] LABS: Basophils % 0.3 % (0.0-0.8); Eosinophils # 0.1 10*3/uL (0.0-0.87); Eosinophils % 0.7 % (0.00-10.9); Hematocrit 29.4 VOL% (35.7-47.0); Hemoglobin 9.8 GM/DL (12.0-16.0); Immature Granulocytes % 0.3 %; Immature Granulocytes Absolute 0.03 #; Lymphocytes # 1.4 10*3/uL (1.4-4.0); Lymphocytes % 14.8 % (21.3-54.2); Mean Corpuscular HGB Conc 33.3 GM/DL (32-36); Mean Corpuscular Hemoglobin 30 PG (27-34); Mean Corpuscular Volume 90.7 FL (87-102); Mean Platelet Volume 9.9 FL (9.6-12.0); Monocytes # 0.4 10*3/uL (0.11-0.8); Monocytes % 3.8 % (1.7-12.7); Neutrophils # 7.5 10*3/uL (1.4-7.4); Neutrophils % 80.1 % (38.7-73.9); Platelet Count 288 T/CUMM (130-400); Red Blood Count 3.24 MC/CUMM (3.8-5.5); Red Cell Distribution Width 14.6 % (9.3-17.3); White Blood Count 9.4 T/CUMM (4-12)
[2017-01-11] MEDS: HYDROmorphone 2 MG/1 ML VIAL IV PRN ×3 (05:24→22:08)
[2017-01-11 05:38] LABS: PT Patient Result 10.9 SECS
[2017-01-11 05:49] LABS: Calcium 8.5 MG/DL (8.5-10.1)
[2017-01-11 05:50] LABS: Magnesium 1.8 MG/DL (1.8-2.4); Osmolality,Calculated 292.1 MOS/KG (273-304); Potassium 3.3 MMOL/L (3.5-5.1)
[2017-01-11] MEDS: INSULIN LISPRO 100 UNIT/ML SUBCUT SCH ×4 (07:48→23:06)
[2017-01-11] MEDS: PANTOPRAZOLE 40 MG VIAL IV SCH ×2 (08:06→20:56)
[2017-01-11] MEDS: NICOTINE 21 MG/24 HR PATCH TRANSDERM SCH (08:06)
[2017-01-11] MEDS: FLUoxetine 20 MG CAPSULE PO SCH (08:06)
[2017-01-11] MEDS: LISINOPRIL 20 MG TABLET PO SCH (08:06)
[2017-01-11] MEDS: CARVEDILOL 25 MG TABLET PO SCH ×2 (08:06→20:56)
--- NOTE | 2017-01-11 08:31 | Event Note ---
Stones foot and leg are stable doing well no sign of infection here just a mild opening and some serosanguineous drainage. She has a chronic foot drop from the previous ischemia but can be up and about as much as tolerated states she still nauseated which is been a chronic problem hypertension is again still a difficult problem thus far we have not been able to control her nausea vomiting and hypertension despite our investigations as to what could be the cause.
--- NOTE | 2017-01-11 09:14 | Hospitalist Progress Note ---
Assessment and Plan (1) Acute GI bleeding Status: Acute Assessment and plan: The patient has no stigmata of bleeding at present. Blood pressure is reasonably well controlled. She is ready for transfer to the floor. We will recheck electrolytes and CBC tomorrow and continue the patient's present pain management regimen. I am going to add meropenem to treat urinary tract infection as well as possible infection of the patient's wound on her previous vascular surgery site. Wound culture obtained is growing gram-positive cocci and gram-negative rods. Uncertain of the significance of this culture. Current Visit: Yes (2) Hypertension Status: Chronic Current Visit: No Qualifiers: Hypertension type: essential hypertension Qualified Code(s): I10 - Essential (primary) hypertension (3) History of CVA (cerebrovascular accident) Status: Chronic Current Visit: No (4) Peripheral vascular disease Status: Chronic Current Visit: No (5) Anemia Status: Acute Current Visit: No Hospitalist: Subjective Interval history: Mrs. Desai is resting quietly in bed today. She appears to have less pain. Blood pressure is elevated but not dangerously so. Dr. Daily has evaluated the patient's leg and did not see evidence of infection. Exam - Constitutional Vitals: Period Temp Pulse Resp BP Sys/Chavarria Pulse Ox Last 24 Hr 97.4 F-98.7 F 99-119 12-24 114-218/74-112 94-100 Exam: Constitutional System: Mild distress. No tremulousness. The patient is stoic today Head: Normocephalic, atraumatic. Ears, Nose and Throat System: No evidence of Otitis or Mastoiditis. No epistaxis or discharge Eyes System: Pupils equal, round, and reactive. Extraocular muscles intact. Neck: Supple, without adenopathy, No jugular venous distention. No thyromegaly , neck mass, or prior surgery apparent. Respiratory System: Chest clear to auscultation. Cardiovascular System: Heart with regular rate and rhythm. No murmur. GI System: Abdomen soft, less distention some generalized tenderness which is mild and bilateral lower quadrants. Musculoskeletal System: limbs with trace pedal edema. Reduced distal pulses. Limbs are warm Neurological System: No discernable sensory deficit. No aphasia Results - Labs CBC & BMP: 01/11/17 05:08 01/11/17 05:08 Lab Results: I have reviewed the past 24 hour labs Quality Measures - VTE Contraindication to Pharmacological VTE Prophylaxis: Active Bleeding Contraindication to Mechanical VTE Prophylaxis: Ischemic Vascular Disease
[2017-01-11] MEDS: MEROPENEM 500 MG in SODIUM CHLORIDE 0.9% 100 ML IV SCH ×2 (11:00→18:28)
--- NOTE | 2017-01-11 11:42 | Gastrointestinal Progress Note ---
<YuryramakrishnaMelba Lilia - Last Filed: 01/11/17 11:39> Assessment and Plan (1) Acute GI bleeding Status: Acute Assessment and plan: 01/11-no further reports of nausea or vomiting, no overt bleeding. H&H is stable at 02/02. Will start clear liquid diet and continue to monitor. Plan an addendum to follow by Dr. Guthrie. 01/09-3 day history of nausea and vomiting with coffee-ground emesis and reports of melena with associated mid umbilical abdominal pain. On Eliquis with history of hypercoagulable state and recent stent placement to left lower extremity. H&H currently stable at 11.2/33.6. Recent EGD last month with no acute findings at that time. Continue to monitor serial H&H and transfuse as necessary. Eliquis currently on hold. Continue Protonix. Plan an addendum to follow Dr. Guthrie. Current Visit: Yes Gastroenterology - PN: Subj Interval history: CC: Upper GI bleed Patient is seen, awake and alert. States she had an uneventful night. She denies any further hematemesis at this time. She denies any abdominal pain. H& H is stable at 02/02. She is hemodynamically stable at this point is to be transferred to the floor today. She is noted to have a UTI and have an IV antibiotics initiated. Abdomen soft, nontender. EGD findings noted with gastritis, possibly secondary to retching. ROS: Denies shortness breath or chest pain Exam (Progress Note) - Constitutional Vitals: Period Temp Pulse Resp BP Sys/Chavarria Pulse Ox Last 24 Hr 97.4 F-98.7 F 95-119 12-24 114-218/74-112 94-100 General appearance: normal weight, no acute distress - Head Head exam: Present: normal inspection, normocephalic - Eye Eye exam: Present: other (Lids and conjunctive are unremarkable). Absent: scleral icterus - ENT ENT exam: Present: normal exam, normal oropharynx - Neck Neck exam: Present: normal inspection - Respiratory Respiratory exam: Present: clear to auscultation bilaterally. Absent: rales, rhonchi, wheezes - Cardiovascular Cardiovascular exam: Present: regular rate and rhythm. Absent: diastolic murmur , JVD, systolic murmur - GI/Abdominal GI/Abdominal exam: Present: normal bowel sounds, soft. Absent: ascites, distended, mass, organomegaly, tenderness - Extremities Exam Extremities exam: Present: normal inspection, full ROM - Back Exam Back exam: Present: normal inspection - Neurological Exam Neurological exam: Present: alert, oriented X3 - Psychiatric Psychiatric exam: Present: normal affect, normal mood - Skin Skin exam: Present: normal color, warm, dry Results - Labs CBC & BMP: 01/11/17 05:08 01/11/17 05:08 Lab Results: I have reviewed the past 24 hour labs <Freddie Guthrie - Last Filed: 01/11/17 17:15> Exam (Progress Note) - Constitutional Vitals: Period Temp Pulse Resp BP Sys/Chavarria Pulse Ox Last 24 Hr 97.4 F-98.6 F 95-109 12-24 114-193/74-106 93-100 Results - Labs CBC & BMP: 01/11/17 05:08 01/11/17 05:08
[2017-01-11] MEDS: ASPIRIN EC 81 MG TABLET PO SCH (16:54)
[2017-01-11] MEDS: glyBURIDE 5 MG TABLET PO SCH (16:55)
[2017-01-11] MEDS: METOCLOPRAMIDE 10 MG TABLET PO SCH ×2 (16:55→20:56)
[2017-01-11] MEDS: APIXABAN 5 MG TABLET PO SCH (20:56)
[2017-01-11] MEDS: ZALEPLON 5 MG CAPSULE PO PRN (20:56)
[2017-01-11] MEDS: ATORVASTATIN 20 MG TABLET PO SCH (20:56)
[2017-01-12] MEDS: HYDROmorphone 2 MG/1 ML VIAL IV PRN (03:14)
[2017-01-12] MEDS: SODIUM CHLORIDE 0.9% 1,000 ML IV SCH ×2 (03:15→11:46)
[2017-01-12] MEDS: oxyCODONE/ACETAMINOPHEN 5-325 MG TABLET PO SCH ×4 (03:15→21:12)
[2017-01-12] MEDS: MEROPENEM 500 MG in SODIUM CHLORIDE 0.9% 100 ML IV SCH ×2 (03:15→09:55)
[2017-01-12 06:30] LABS: Basophils % 0.3 % (0.0-0.8); Eosinophils # 0.1 10*3/uL (0.0-0.87); Eosinophils % 0.9 % (0.00-10.9); Hematocrit 26.9 VOL% (35.7-47.0); Hemoglobin 8.8 GM/DL (12.0-16.0); Immature Granulocytes % 0.6 %; Immature Granulocytes Absolute 0.05 #; Lymphocytes # 1.8 10*3/uL (1.4-4.0); Lymphocytes % 20.3 % (21.3-54.2); Mean Corpuscular HGB Conc 32.7 GM/DL (32-36); Mean Corpuscular Hemoglobin 30 PG (27-34); Mean Corpuscular Volume 90.3 FL (87-102); Mean Platelet Volume 10.1 FL (9.6-12.0); Neutrophils # 6.1 10*3/uL (1.4-7.4); Neutrophils % 66.9 % (38.7-73.9); Platelet Count 252 T/CUMM (130-400); Red Blood Count 2.98 MC/CUMM (3.8-5.5); Red Cell Distribution Width 14.4 % (9.3-17.3); White Blood Count 9.1 T/CUMM (4-12)
[2017-01-12 06:45] LABS: INR 1.1; PT Patient Result 11.9 SECS
[2017-01-12 06:54] LABS: Calcium 8.1 MG/DL (8.5-10.1); Magnesium 1.6 MG/DL (1.8-2.4); Osmolality,Calculated 280.4 MOS/KG (273-304)
[2017-01-12] MEDS: INSULIN LISPRO 100 UNIT/ML SUBCUT SCH ×4 (08:17→21:19)
[2017-01-12] MEDS: NICOTINE 21 MG/24 HR PATCH TRANSDERM SCH (08:55)
[2017-01-12] MEDS: METOCLOPRAMIDE 10 MG TABLET PO SCH ×4 (08:56→21:12)
[2017-01-12] MEDS: glyBURIDE 5 MG TABLET PO SCH ×2 (08:56→17:12)
[2017-01-12] MEDS: LISINOPRIL 20 MG TABLET PO SCH (08:56)
[2017-01-12] MEDS: FLUoxetine 20 MG CAPSULE PO SCH (08:57)
[2017-01-12] MEDS: CARVEDILOL 25 MG TABLET PO SCH ×2 (08:57→21:12)
[2017-01-12] MEDS: ASPIRIN EC 81 MG TABLET PO SCH (08:57)
[2017-01-12] MEDS: PANTOPRAZOLE 40 MG VIAL IV SCH ×2 (08:58→21:12)
--- NOTE | 2017-01-12 09:34 | Hospitalist Progress Note ---
Assessment and Plan (1) Gastritis Status: Acute Assessment and plan: She was identified by EGD to have gastritis which has been presumed to be the cause of her gastrointestinal bleeding. She is being treated with metoclopramide and pantoprazole. She is being followed by gastroenterology. Current Visit: Yes (2) Severe peripheral arterial disease Status: Chronic Assessment and plan: She is status post left femoral-popliteal bypass surgery with a wound infection at the surgical site. She is being treated with intravenous meropenem. Cultures demonstrated a mixture of gram-positive and gram-negative bacteria. Current Visit: No (3) UTI (urinary tract infection) Status: Acute Assessment and plan: Urine culture demonstrated gram-negative rods. She is being treated with meropenem pending results of sensitivity studies. Current Visit: No Qualifiers: Urinary tract infection type: acute cystitis Hematuria presence: without hematuria Qualified Code(s): N30.00 - Acute cystitis without hematuria (4) Upper GI bleed Status: Acute Assessment and plan: There is no evidence of active gastrointestinal bleeding. Her hematocrit and hemoglobin were 29.4 and 9.8 respectively yesterday. There are 26.9 and 8.8 respectively today. I will continue to monitor her CBC. Current Visit: No (5) Diabetes mellitus Status: Acute Assessment and plan: Her blood glucose today is 138. She is being treated with glyburide and sliding scale insulin coverage. Current Visit: Yes Qualifiers: Diabetes mellitus type: type 2 Diabetes mellitus complication status: without complication Diabetes mellitus mcfp insulin use: without mcfp use Qualified Code(s): E11.9 - Type 2 diabetes mellitus without complications Hospitalist: Subjective Interval history: Patient was transferred from the ICU to the medical surgical unit yesterday. She had been hospitalized with a gastrointestinal bleed presumed to be secondary to gastritis identified at EGD. She was begun yesterday on a clear liquid diet which she states she is tolerating. She does not wish to advance her diet. She was begun yesterday on intravenous meropenem for a gram-negative urinary tract infection and a wound infection at the site of her previous vascular surgery. Exam - Constitutional Vitals: Period Temp Pulse Resp BP Sys/Chavarria Pulse Ox Last 24 Hr 97.8 F-99.8 F 95-107 12-23 139-193/74-94 93-99 General appearance: no acute distress - Head Head exam: Present: normal inspection - Neck Neck exam: Present: normal inspection - Respiratory Respiratory exam: Present: clear to auscultation bilaterally - Cardiovascular Cardiovascular exam: Present: regular rate and rhythm - GI/Abdominal GI/Abdominal exam: Present: normal bowel sounds, soft, other (Nontender with no palpable masses or hepatosplenomegaly.) - Extremities Exam Extremities exam: Present: other (Open wound of left lower extremity at previous surgical site with no evidence of infection.) - Neurological Exam Neurological exam: Present: alert, oriented X3 - Skin Skin exam: Present: normal color, warm, intact Results - Labs CBC & BMP: 01/12/17 05:59 01/12/17 05:59 Quality Measures - VTE Contraindication to Pharmacological VTE Prophylaxis: Active Bleeding Contraindication to Mechanical VTE Prophylaxis: Ischemic Vascular Disease
--- NOTE | 2017-01-12 09:44 | Gastrointestinal Progress Note ---
<Aneudy Armijoher Lilia - Last Filed: 01/12/17 09:42> Assessment and Plan (1) Acute GI bleeding Status: Acute Assessment and plan: 01/12-no overt bleeding reported. H&H stable. Tolerating clear liquid diet. Plan an addendum to follow by Dr. Guthrie. 01/11-no further reports of nausea or vomiting, no overt bleeding. H&H is stable at 02/02. Will start clear liquid diet and continue to monitor. Plan an addendum to follow by Dr. Guthrie. 01/09-3 day history of nausea and vomiting with coffee-ground emesis and reports of melena with associated mid umbilical abdominal pain. On Eliquis with history of hypercoagulable state and recent stent placement to left lower extremity. H&H currently stable at 11.2/33.6. Recent EGD last month with no acute findings at that time. Continue to monitor serial H&H and transfuse as necessary. Eliquis currently on hold. Continue Protonix. Plan an addendum to follow Dr. Guthrie. Current Visit: Yes Gastroenterology - PN: Subj Interval history: CC: Acute GI bleed Patient is seen awake and alert sitting up in bed. Patient appears to have a flat affect today and slow to respond to conversation. She is complaining of some pain in her legs today however denies any abdominal pain at present time. Denies any nausea or vomiting. Abdomen is soft, nontender. She is tolerating her diet at this time and states she does not want more than clear liquids at present. H&H is stable at 8.8/26.9. ROS: Denies shortness breath or chest pain Exam (Progress Note) - Constitutional Vitals: Period Temp Pulse Resp BP Sys/Chavarria Pulse Ox Last 24 Hr 97.8 F-99.8 F 95-107 12-23 139-193/73-94 93-99 General appearance: normal weight, no acute distress - Head Head exam: Present: normal inspection, normocephalic - Eye Eye exam: Present: other. Absent: scleral icterus - ENT ENT exam: Present: normal exam (Lids and conjunctive are unremarkable), normal oropharynx - Neck Neck exam: Present: normal inspection - Respiratory Respiratory exam: Present: clear to auscultation bilaterally. Absent: rales, rhonchi, wheezes - Cardiovascular Cardiovascular exam: Present: regular rate and rhythm. Absent: diastolic murmur , JVD, systolic murmur - GI/Abdominal GI/Abdominal exam: Present: normal bowel sounds, soft. Absent: ascites, distended, mass, organomegaly, tenderness - Extremities Exam Extremities exam: Present: normal inspection, full ROM - Back Exam Back exam: Present: normal inspection - Neurological Exam Neurological exam: Present: alert, oriented X3 - Psychiatric Psychiatric exam: Present: normal affect, normal mood - Skin Skin exam: Present: normal color, warm, dry Results - Labs CBC & BMP: 01/12/17 05:59 01/12/17 05:59 Lab Results: I have reviewed the past 24 hour labs <Freddie Guthrie - Last Filed: 01/12/17 10:30> Exam (Progress Note) - Constitutional Vitals: Period Temp Pulse Resp BP Sys/Chavarria Pulse Ox Last 24 Hr 97.8 F-99.8 F 95-107 15-23 139-193/73-94 93-99 Results - Labs CBC & BMP: 01/12/17 05:59 01/12/17 05:59
[2017-01-12] MEDS ORDERED: POTASSIUM CHLORIDE RIDER 20 MEQ in PREMIX 1 EACH IV PRN (09:50)
[2017-01-12] MEDS: APIXABAN 5 MG TABLET PO SCH ×2 (10:41→21:12)
[2017-01-12] MEDS: POTASSIUM CHLORIDE RIDER 10 MEQ in PREMIX 1 EACH IV PRN ×5 (11:40→18:10)
[2017-01-12] MEDS: LINEZOLID INJ 600 MG in PREMIX 1 EACH IV SCH (17:51)
[2017-01-12] MEDS: LEVOFLOXACIN INJ 750 MG in PREMIX 1 EACH IV SCH (18:58)
[2017-01-12] MEDS: ATORVASTATIN 20 MG TABLET PO SCH (21:12)
[2017-01-13] MEDS: HYDROmorphone 2 MG/1 ML VIAL IV PRN ×4 (00:59→22:45)
[2017-01-13] MEDS: oxyCODONE/ACETAMINOPHEN 5-325 MG TABLET PO SCH ×4 (03:56→20:54)
[2017-01-13] MEDS: SODIUM CHLORIDE 0.9% 1,000 ML IV SCH ×2 (03:56→18:33)
[2017-01-13] MEDS: LINEZOLID INJ 600 MG in PREMIX 1 EACH IV SCH ×2 (04:00→16:50)
[2017-01-13] MEDS: POTASSIUM CHLORIDE RIDER 10 MEQ in PREMIX 1 EACH IV PRN (05:19)
[2017-01-13 06:14] LABS: Basophils % 0.1 % (0.0-0.8); Eosinophils # 0.1 10*3/uL (0.0-0.87); Eosinophils % 1.5 % (0.00-10.9); Hemoglobin 8.8 GM/DL (12.0-16.0); Immature Granulocytes % 0.3 %; Immature Granulocytes Absolute 0.03 #; Lymphocytes # 1.9 10*3/uL (1.4-4.0); Lymphocytes % 21.8 % (21.3-54.2); Mean Corpuscular HGB Conc 33.8 GM/DL (32-36); Mean Corpuscular Hemoglobin 30 PG (27-34); Mean Corpuscular Volume 88.1 FL (87-102); Mean Platelet Volume 9.7 FL (9.6-12.0); Monocytes % 11.4 % (1.7-12.7); Neutrophils # 5.6 10*3/uL (1.4-7.4); Neutrophils % 64.9 % (38.7-73.9); Platelet Count 255 T/CUMM (130-400); Red Blood Count 2.95 MC/CUMM (3.8-5.5); White Blood Count 8.7 T/CUMM (4-12)
[2017-01-13] MEDS ORDERED: POTASSIUM CHLORIDE 20 MEQ TABLET PO ONE (06:30)
[2017-01-13 06:43] LABS: Calcium 8.1 MG/DL (8.5-10.1); Potassium 3.2 MMOL/L (3.5-5.1)
[2017-01-13] MEDS: glyBURIDE 5 MG TABLET PO SCH ×2 (08:51→16:41)
[2017-01-13] MEDS: APIXABAN 5 MG TABLET PO SCH ×2 (08:51→20:54)
[2017-01-13] MEDS: POTASSIUM CHLORIDE 20 MEQ/15 ML UDCUP PO SCH (08:51)
[2017-01-13] MEDS: NICOTINE 21 MG/24 HR PATCH TRANSDERM SCH (08:51)
[2017-01-13] MEDS: LISINOPRIL 20 MG TABLET PO SCH (08:51)
[2017-01-13] MEDS: METOCLOPRAMIDE 10 MG TABLET PO SCH ×4 (08:51→20:54)
[2017-01-13] MEDS: CARVEDILOL 25 MG TABLET PO SCH ×2 (08:52→21:03)
[2017-01-13] MEDS: ASPIRIN EC 81 MG TABLET PO SCH (08:52)
[2017-01-13] MEDS: FLUoxetine 20 MG CAPSULE PO SCH (08:52)
[2017-01-13] MEDS: INSULIN LISPRO 100 UNIT/ML SUBCUT SCH ×4 (08:53→22:47)
--- NOTE | 2017-01-13 10:04 | Hospitalist Progress Note ---
Assessment and Plan (1) Gastritis Status: Acute Assessment and plan: She was identified by EGD to have gastritis which has been presumed to be the cause of her gastrointestinal bleeding. She is being treated with metoclopramide and pantoprazole. She is being followed by gastroenterology. Current Visit: Yes (2) Severe peripheral arterial disease Status: Chronic Assessment and plan: She is status post left femoral-popliteal bypass surgery with a wound infection at the surgical site. She is being treated with intravenous meropenem. Cultures demonstrated a mixture of gram-positive and gram-negative bacteria. Current Visit: No (3) UTI (urinary tract infection) Status: Acute Assessment and plan: Urine culture demonstrated gram-negative rods. She is being treated with meropenem pending results of sensitivity studies. Current Visit: No Qualifiers: Urinary tract infection type: acute cystitis Hematuria presence: without hematuria Qualified Code(s): N30.00 - Acute cystitis without hematuria (4) Upper GI bleed Status: Acute Assessment and plan: There is no evidence of active gastrointestinal bleeding. Her hematocrit and hemoglobin were 29.4 and 9.8 respectively yesterday. There are 26.9 and 8.8 respectively today. I will continue to monitor her CBC. Current Visit: No (5) Diabetes mellitus Status: Acute Assessment and plan: Her blood glucose today is 130. She is being treated with glyburide and sliding scale insulin coverage. Current Visit: Yes Qualifiers: Diabetes mellitus type: type 2 Diabetes mellitus complication status: without complication Diabetes mellitus detention insulin use: without detention use Qualified Code(s): E11.9 - Type 2 diabetes mellitus without complications (6) Hypokalemia Status: Acute Assessment and plan: Her potassium today is 3.2. She is receiving potassium chloride replacement as per protocol. Current Visit: No Hospitalist: Subjective Interval history: Patient was transferred from the ICU to the medical surgical unit 2 days ago. She had been hospitalized with a gastrointestinal bleed presumed to be secondary to gastritis identified at EGD. She is presently on a clear liquid diet which she is tolerating. She does not wish to advance her diet. She was begun 2 days ago on intravenous meropenem for a gram-negative urinary tract infection and a wound infection at the site of her previous vascular surgery. Exam - Constitutional Vitals: Period Temp Pulse Resp BP Sys/Chavarria Pulse Ox Last 24 Hr 97.2 F-100.2 F 87-100 18-20 144-169/68-91 87-95 General appearance: no acute distress - Neck Neck exam: Present: normal inspection - Respiratory Respiratory exam: Present: clear to auscultation bilaterally - Cardiovascular Cardiovascular exam: Present: regular rate and rhythm - GI/Abdominal GI/Abdominal exam: Present: normal bowel sounds, soft, other (Nontender with no palpable masses or hepatosplenomegaly.) - Extremities Exam Extremities exam: Present: other (Healing surgical wound of left leg.) - Neurological Exam Neurological exam: Present: alert, oriented X3 - Skin Skin exam: Present: normal color, warm, intact Results - Labs CBC & BMP: 01/13/17 06:02 01/13/17 06:02 Quality Measures - VTE Contraindication to Pharmacological VTE Prophylaxis: Active Bleeding Contraindication to Mechanical VTE Prophylaxis: Ischemic Vascular Disease
[2017-01-13] MEDS: PANTOPRAZOLE 40 MG VIAL IV SCH ×2 (10:10→20:54)
--- NOTE | 2017-01-13 11:00 | Event Note ---
Ms. Desai wound has some superficial type of infection I have opened the previously open spot will irrigate that with peroxide and packed with Dakin's moist gauze. Continue with Delia
[2017-01-13] MEDS: SODIUM HYPOCHLORITE 0.25% IRRIG 473 ML BOTTLE TOP SCH (11:15)
[2017-01-13] MEDS: LEVOFLOXACIN INJ 750 MG in PREMIX 1 EACH IV SCH (18:30)
[2017-01-13] MEDS: ATORVASTATIN 20 MG TABLET PO SCH (20:54)
[2017-01-13] MEDS: ZALEPLON 5 MG CAPSULE PO PRN (20:58)
[2017-01-14] MEDS: oxyCODONE/ACETAMINOPHEN 5-325 MG TABLET PO SCH ×3 (02:47→14:48)
[2017-01-14] MEDS: HYDROmorphone 2 MG/1 ML VIAL IV PRN ×4 (05:05→20:43)
[2017-01-14] MEDS: LINEZOLID INJ 600 MG in PREMIX 1 EACH IV SCH ×2 (05:05→16:07)
[2017-01-14 08:45] LABS: Calcium 8.2 MG/DL (8.5-10.1); Potassium 4.3 MMOL/L (3.5-5.1)
[2017-01-14] MEDS: NICOTINE 21 MG/24 HR PATCH TRANSDERM SCH (09:02)
[2017-01-14] MEDS: PANTOPRAZOLE 40 MG VIAL IV SCH ×2 (09:02→20:44)
[2017-01-14] MEDS: LISINOPRIL 20 MG TABLET PO SCH (09:03)
[2017-01-14] MEDS: POTASSIUM CHLORIDE 20 MEQ/15 ML UDCUP PO SCH (09:03)
[2017-01-14] MEDS: glyBURIDE 5 MG TABLET PO SCH ×2 (09:04→16:07)
[2017-01-14] MEDS: APIXABAN 5 MG TABLET PO SCH ×2 (09:04→20:44)
[2017-01-14] MEDS: CARVEDILOL 25 MG TABLET PO SCH ×2 (09:04→20:44)
[2017-01-14] MEDS: ASPIRIN EC 81 MG TABLET PO SCH (09:05)
[2017-01-14] MEDS: METOCLOPRAMIDE 10 MG TABLET PO SCH ×4 (09:05→20:44)
[2017-01-14] MEDS: FLUoxetine 20 MG CAPSULE PO SCH (09:05)
[2017-01-14] MEDS: INSULIN LISPRO 100 UNIT/ML SUBCUT SCH ×4 (09:10→20:43)
[2017-01-14] MEDS ORDERED: DEXTROSE 50% 25 GM/50 ML SYRINGE IV PRN (09:26)
[2017-01-14] MEDS ORDERED: GLUCAGON 1 MG VIAL IM PRN (09:26)
--- NOTE | 2017-01-14 09:48 | Hospitalist Progress Note ---
Assessment and Plan (1) Gastritis Status: Acute Assessment and plan: She was identified by EGD to have gastritis which has been presumed to be the cause of her gastrointestinal bleeding. She is being treated with metoclopramide and pantoprazole. She is being followed by gastroenterology. Current Visit: Yes (2) Severe peripheral arterial disease Status: Chronic Assessment and plan: She is status post left femoral-popliteal bypass surgery with a wound infection at the surgical site. She is being treated with intravenous meropenem. Cultures demonstrated a mixture of gram-positive and gram-negative bacteria. Current Visit: No (3) UTI (urinary tract infection) Status: Acute Assessment and plan: Urine culture demonstrated gram-negative rods. She is being treated with meropenem pending results of sensitivity studies. Current Visit: No Qualifiers: Urinary tract infection type: acute cystitis Hematuria presence: without hematuria Qualified Code(s): N30.00 - Acute cystitis without hematuria (4) Upper GI bleed Status: Acute Assessment and plan: There is no evidence of active gastrointestinal bleeding. Her hematocrit and hemoglobin were 29.4 and 9.8 respectively yesterday. There are 26.9 and 8.8 respectively today. I will continue to monitor her CBC. Current Visit: No (5) Diabetes mellitus Status: Acute Assessment and plan: Her blood glucose today is 130. She is being treated with glyburide and sliding scale insulin coverage. Current Visit: Yes Qualifiers: Diabetes mellitus type: type 2 Diabetes mellitus complication status: without complication Diabetes mellitus chcf insulin use: without chcf use Qualified Code(s): E11.9 - Type 2 diabetes mellitus without complications (6) Hypokalemia Status: Acute Assessment and plan: Her potassium today is 4.3. She is receiving potassium chloride replacement as per protocol. Current Visit: No Hospitalist: Subjective Interval history: She is comfortable with no complaints. She requests solid food. She wants to go home. She continues on intravenous meropenem for a gram-negative urinary tract infection and the wound infection at the site of her previous vascular surgery. According to surgery, the wound appears to be healing well. She has a vaginal discharge most probably Reba, for which I will prescribe fluconazole and nystatin. Exam - Constitutional Vitals: Period Temp Pulse Resp BP Sys/Chavarria Pulse Ox Last 24 Hr 97.4 F-98.0 F 70-89 12-18 126-151/67-79 95-99 General appearance: no acute distress - Head Head exam: Present: normal inspection - Neck Neck exam: Present: normal inspection - Respiratory Respiratory exam: Present: clear to auscultation bilaterally - Cardiovascular Cardiovascular exam: Present: regular rate and rhythm - GI/Abdominal GI/Abdominal exam: Present: normal bowel sounds, soft, other (Nontender with no palpable masses or hepatosplenomegaly.) - Extremities Exam Extremities exam: Present: normal inspection, other (Surgical wound is healing well.) - Skin Skin exam: Present: normal color, warm, intact Results - Labs CBC & BMP: 01/13/17 06:02 01/14/17 07:39 Quality Measures - VTE Contraindication to Pharmacological VTE Prophylaxis: Active Bleeding Contraindication to Mechanical VTE Prophylaxis: Ischemic Vascular Disease
[2017-01-14] MEDS ORDERED: FLUCONAZOLE 150 MG TABLET PO ONE (10:00)
[2017-01-14] MEDS: SODIUM HYPOCHLORITE 0.25% IRRIG 473 ML BOTTLE TOP SCH (15:30)
[2017-01-14] MEDS: SODIUM CHLORIDE 0.9% 1,000 ML IV SCH (16:24)
[2017-01-14] MEDS: LEVOFLOXACIN INJ 750 MG in PREMIX 1 EACH IV SCH (17:34)
[2017-01-14] MEDS: ATORVASTATIN 20 MG TABLET PO SCH (20:44)
[2017-01-14] MEDS: NYSTATIN CREAM 15 GM TUBE TOP SCH (20:44)
[2017-01-15] MEDS: HYDROmorphone 2 MG/1 ML VIAL IV PRN ×3 (00:15→09:06)
[2017-01-15] MEDS: oxyCODONE/ACETAMINOPHEN 5-325 MG TABLET PO SCH ×3 (00:18→11:09)
[2017-01-15] MEDS: LINEZOLID INJ 600 MG in PREMIX 1 EACH IV SCH (05:32)
[2017-01-15] MEDS: POTASSIUM CHLORIDE 20 MEQ/15 ML UDCUP PO SCH (09:10)
[2017-01-15] MEDS: LISINOPRIL 20 MG TABLET PO SCH (09:11)
[2017-01-15] MEDS: CARVEDILOL 25 MG TABLET PO SCH (09:11)
[2017-01-15] MEDS: glyBURIDE 5 MG TABLET PO SCH (09:12)
[2017-01-15] MEDS: ASPIRIN EC 81 MG TABLET PO SCH (09:12)
[2017-01-15] MEDS: METOCLOPRAMIDE 10 MG TABLET PO SCH ×2 (09:12→11:44)
[2017-01-15] MEDS: APIXABAN 5 MG TABLET PO SCH (09:12)
[2017-01-15] MEDS: NYSTATIN CREAM 15 GM TUBE TOP SCH (09:13)
[2017-01-15] MEDS: NICOTINE 21 MG/24 HR PATCH TRANSDERM SCH (09:13)
[2017-01-15] MEDS: FLUoxetine 20 MG CAPSULE PO SCH (09:13)
[2017-01-15] MEDS: PANTOPRAZOLE 40 MG VIAL IV SCH (09:14)
[2017-01-15] MEDS: INSULIN LISPRO 100 UNIT/ML SUBCUT SCH ×2 (09:15→11:59)
--- NOTE | 2017-01-15 09:49 | Event Note ---
Ms. Desai is generally feeling better today the wound of the left leg is looking quite a bit better and I think will heal without great difficulty. She appears to be ready to be discharged home I would like to see her in the office next week and would like home health to help her with wound care at home.
--- NOTE | 2017-01-15 10:41 | Discharge Summary ---
Hospital Course - Hospital Course Hospital Course: Ms. Desai is a 41 year old -H[place] female with history of complicated hypercoagulable state, peripheral vascular disease status post left lower extremity bypass on Eliquis, hypertension, and diabetes presenting to the ED with a 3 day history of vomiting and defecating blood. Patient states proximally 3 days ago she started vomiting coffee-ground emesis and shortly thereafter she started having dark tarry BMs. She states it has worsened over period of time and now she is having some shortness of breath and abdominal pain along with it she feels like she is febrile. Patient had just been discharged on 12/26/2016 to [facility] after she was admitted with hypercoagulable state with multiple cerebral infarctions and revascularization procedure by Dr. Gibson on her left lower extremity. Patient is afebrile and she is mildly tachycardic, blood pressure okay. White count is normal with an H&H of 11.2/ 33.6 which is actually higher than her discharge H&H. Her creatinine is elevated at 1.3 and her blood sugars are 429. She has the appearance of being tired she is alert and oriented. She has diffuse mild abdominal pain in an open wound on her left medial lower thigh from her revascularization procedure. Patient states Dr. Gibson just looked at it and placed some Steri-Strips. Patient was admitted to the hospital with upper gastrointestinal bleed. She was seen in consultation by gastroenterology. An EGD demonstrated evidence of gastritis as the source of her bleeding. She was treated with pantoprazole and metoclopramide. Her hematocrit and hemoglobin remained stable and at the time of discharge were 26.9 and 8.8 respectively. She was diagnosed with a urinary tract infection and a wound infection at the site of the of the left femoral- popliteal bypass surgery. She was treated with intravenous meropenem with resolution of the urinary tract infection and significant improvement of the surgical wound. At the time of her discharge she was comfortable with no complaints and eager to go home. Diagnosis - Discharge Diagnosis (1) Gastritis Status: Acute (2) Severe peripheral arterial disease Status: Chronic (3) UTI (urinary tract infection) Status: Acute (4) Upper GI bleed Status: Acute (5) Diabetes mellitus Status: Chronic (6) Hypokalemia Status: Acute Specialty Discharge - Follow Up or Referrals Follow up with: Kristopher Gibson MD [Physician] - 01/22/17 2:00 pm Discharge Plan - Discharge Data Disposition: Disch To Home/Self Care Condition at Discharge: Stable Discharge Diet: advance to your usual diet Activity: resume usual activities as tolerated - Discharge Medications New Linezolid Tab [Zyvox Tab] 600 mg PO Q12HR #10 tablet Continue Atorvastatin [Lipitor] 20 mg PO BEDTIME #30 tablet glyBURIDE [Diabeta] 5 mg PO BID W/MEALS #60 tablet Lisinopril [Prinivil] 40 mg PO DAILY #30 tablet Nicotine 21 mg/24 Hr Patch [Nicoderm CQ 21 mg/24 hr Patch] 1 patch TRANSDERM DAILY #30 patch Apixaban [Eliquis] 5 mg PO BID #60 tablet metFORMIN [Glucophage] 500 mg PO DAILY W/BREAKFAST tablet Zaleplon [Sonata] 10 mg PO BEDTIME PRN capsule PRN Reason: Sleep oxyCODONE/ACETAMINOPHEN 5-325 [Percocet 5-325] 1 tablet PO Q6H #10 tablet Docusate Sodium Cap [Colace Cap] 100 mg PO BID PRN PRN Reason: STOOL SOFTENER Aspirin EC Tab 81 mg PO QAM Carvedilol [Coreg] 25 mg PO BID #60 tablet Alum/Mag/Simeth Max Str Liquid [Mylanta Max Strength Liquid] 30 ml PO Q6H PRN PRN Reason: Dyspepsia Metoclopramide Tab [Reglan Tab] 10 mg PO ACHS tablet FLUoxetine [PROzac] 20 mg PO QAM - Follow Up or Referral Follow Up: Kristopher Gibson MD [Physician] - 01/22/17 2:00 pm - Forms/Instructions Exam - Constitutional Vitals: Period Temp Pulse Resp BP Sys/Chavarria Pulse Ox Last 24 Hr 97.1 F-99.7 F 86-99 18-20 127-172/70-85 96-100 Discharge Results Procedures and tests throughout hospitalization: Pending Orders 01/16/17 04:00 CBC [Comp Blood Count Auto Diff] IN AM Labs on day of discharge: Labs from last 24 hours 01/15/17 01/14/17 01/14/17 07:06 19:43 15:27 POC Glucose 155 H 190 H 103 01/14/17 12:35 POC Glucose 115 H DS: Provider Date of admission: 01/09/17 13:39 Primary care physician: . No PCP Attending physician on admission: Benson Sommers MD Consults: 01/09/17 14:00 Consult to Physician [CONS] Routine Comment: GIB Consulting Provider: Freddie Guthrie When should Consulting Provider be notified: Now 01/10/17 09:02 Consult to Physician [CONS] Routine Comment: abdominal pain, vascular disease Consulting Provider: Kristopher Gibson Consulting Provider Notified: Yes Consult to Specialist Group: Surgery Person Notified: tatiana Date Notified: 01/10/17 Time Notified: 09:40 01/12/17 09:42 Consult to Physical Therapy [CONS] Routine Reason for Physical Therapy: Evaluate and Treat 01/14/17 09:50 Consult to Case Mgmt/Social Srvs [CONS] Routine Reason for Case Mgmt/Social Srvs: Discharge Planning 01/15/17 09:46 Consult to Case Mgmt/Social Srvs [CONS] Routine Reason for Case Mgmt/Social Srvs: Home Health Discharging clinician: Kalia George
[2017-01-15] MEDS: SODIUM HYPOCHLORITE 0.25% IRRIG 473 ML BOTTLE TOP SCH (11:10)
[2017-01-15 14:32] VITALS: BP 159/83
== END 2017-01-15 13:05 | disposition home health service (06) | DRG 241 ==
LOC: EDUNIT# → EDBD → N.ED 10:55 → N.EDINP 13:39 → SUATTDRO 13:39 → N.ICU 16:19 → N.2E 01-11 21:02
PROVIDERS: ADMIT Internal Medicine

== ENCOUNTER 2017-01-19 12:41 | Inpatient (IN) ==
[2017-01-19] MEDS ORDERED: SODIUM CHLORIDE 0.9% 1,000 ML IV STA (12:47)
[2017-01-19] MEDS ORDERED: ONDANSETRON 4 MG/2 ML VIAL IV STA (12:47)
[2017-01-19] MEDS ORDERED: METOPROLOL TARTRATE 5 MG/5 ML VIAL IV STA ×3 (12:54→16:31)
--- NOTE | 2017-01-19 12:54 | Emergency Department Note ---
Angel Conner Manpreet, am scribing for, and in the presence of, Mohit Bullock MD 12: 50. Ara Conner James D, MD, personally performed the services described in this documentation, ascribed by Aram Ortiz in my presence, and it is both accurate and complete 252 . Arrival - Arrival Chief Complaint: Abdominal / Flank Pain Stated Complaint: ABD PAIN Mode of Arrival: Stretcher Limitations: No Limitations Source: Patient Time Seen by Provider: 01/19/17 12:43 - History of Present Illness HPI Narrative: Pt is a 41 y/o female who is brought to the ED via EMS with CC of Abd pain that began this AM. Pt c/o nausea but denies any N/D, melena, rectal bleeding, or fever. Pt's last BM was this AM which was nml. Pt reports of smoking 4 or 5 cigarettes everyday but denies any EtOH or any other drug use. No other pains/ complaints reported to the ED. Consistency: constant Severity: moderate Allergies/Adverse Reactions: Allergies Allergy/AdvReac Type Severity Reaction Status Date / Time No Known Allergies Allergy Verified 01/19/17 12:56 Home Medications: Home Medications Medication Instructions Recorded Confirmed Type Atorvastatin [Lipitor] 20 mg PO BEDTIME #30 tablet 07/29/15 01/09/17 Rx Lisinopril [Prinivil] 40 mg PO DAILY #30 tablet 07/29/15 01/09/17 Rx glyBURIDE [Diabeta] 5 mg PO BID W/MEALS #60 tablet 07/29/15 01/09/17 Rx Nicotine 21 mg/24 Hr Patch 1 patch TRANSDERM DAILY #30 patch 12/01/16 01/09/17 Rx [Nicoderm CQ 21 mg/24 hr Patch] Carvedilol [Coreg] 25 mg PO BID #60 tablet 12/08/16 01/09/17 Rx Apixaban [Eliquis] 5 mg PO BID #60 tablet 12/22/16 01/09/17 Rx Alum/Mag/Simeth Max Str Liquid 30 ml PO Q6H PRN 12/26/16 01/09/17 Rx [Mylanta Max Strength Liquid] Metoclopramide Tab [Reglan Tab] 10 mg PO ACHS tablet 12/26/16 01/09/17 Rx Zaleplon [Sonata] 10 mg PO BEDTIME PRN capsule 12/26/16 01/09/17 Rx metFORMIN [Glucophage] 500 mg PO DAILY W/BREAKFAST tablet 12/26/16 01/09/17 Rx oxyCODONE/ACETAMINOPHEN 5-325 1 tablet PO Q6H #10 tablet 01/07/17 01/09/17 Rx [Percocet 5-325] Aspirin EC Tab 81 mg PO QAM 01/09/17 01/09/17 History Docusate Sodium Cap [Colace Cap] 100 mg PO BID PRN 01/09/17 01/09/17 History FLUoxetine [PROzac] 20 mg PO QAM 01/09/17 01/09/17 History Linezolid Tab [Zyvox Tab] 600 mg PO Q12HR #10 tablet 01/15/17 Rx Review of System - Review of System 12 point system: reviewed and no additional remarkable complaints except as stated - Review of System Constitutional: Absent: chills, diaphoresis, fever Respiratory: Absent: cough, respiratory distress, wheezing Cardiovascular: Absent: chest pain Gastrointestinal: Present: abdominal pain, nausea. Absent: vomiting, diarrhea, hematemesis, melena Genitourinary female: Absent: dysuria Musculoskeletal: Absent: back pain Neurological: Absent: headache, weakness, numbness, paresthesias Exam Vital Signs: Vital Signs Temperature 96.9 F L 01/19/17 12:41 Pulse Rate 96 H 01/19/17 15:15 Respiratory Rate 20 01/19/17 15:15 Blood Pressure 194/111 01/19/17 15:15 O2 Sat by Pulse Oximetry 100 01/19/17 15:15 GENERAL: This is a well-nourished well-developed chronically ill-appearing black female in no apparent distress. VITAL SIGNS: Reviewed HEENT: Head is atraumatic and normocephalic. Pupils are equal round react to light. Extraocular movements are intact. Oropharynx is benign with moist mucous membranes. NECK: Neck is soft and supple without tenderness. There are no masses. There is no lymphadenopathy. LUNGS: Lungs are clear to auscultation. Chest rises symmetrically. There is no chest wall tenderness. CV: Heart is regular rate and rhythm without murmurs rubs or gallops. ABDOMEN: Abdomen is soft, nontender to palpation. There are no abdominal abnormal masses palpated. There is no organomegaly. Bowel sounds are hypoactive SKIN: Skin is warm and dry. No rash. EXTREMITIES: Patient has an incision overlying the medial portion of her left knee which is packed and appears to be clean with granulation tissue.. There is no pedal edema. NEUROLOGIC: Awake alert. Cranial nerves II-12 are grossly intact. Motor is 5/5 , patient moves all extremities. Course Course Narrative: Patient has severe multisystem medical problems including a ventricular apical thrombus and hypercoagulable state. The patient also has diabetes mellitus and she consistently does not participate in her medical care. She continues to smoke cigarettes. Her prognosis is exceedingly poor. - Consultations Consultation #1: Discussed with Dr. fernández consultant internship for general surgery. Time: 16:34 Consultation #2: Discussed with hospitalist. Patient will be admitted to their service. Time: 16:34 Results - Labs CBC & BMP: 01/19/17 13:20 01/19/17 13:20 Lab Results: I have reviewed the patients labs - EKG EKG results: interpreted by ERMD - Impressions EKG: Normal sinus rhythm with a rate of 91, nonspecific ST-T wave changes, normal axis. - Diagnostic Findings Procedure: Abdominal x-ray: image reviewed by me (No free air, gas in the rectum.), Chest x-ray: image reviewed by me (No infiltrates, no pleural effusions) Disposition Clinical Impression: Abdominal pain, Diabetes mellitus, Peripheral vascular disease, Nicotine addiction, Essential hypertension, Noncompliance with medication regimen, Gastritis, Left ventricular apical thrombus Case discussed with: patient Condition: Stable
[2017-01-19] MEDS ORDERED: METOPROLOL TARTRATE 5 MG/5 ML VIAL IV ONE ×3 (12:58→16:32)
[2017-01-19] MEDS ORDERED: ONDANSETRON 4 MG/2 ML VIAL ONE (12:58)
--- NOTE | 2017-01-19 13:17 | XRay Report ---
XR abdomen 2V Indication: Abdominal pain. Abdomen 3 views: Surgical clips right upper quadrant and bilateral iliac artery stents are present. Calcified atheromatous disease of the external iliac arteries noted. No small bowel dilatation. Normal amount of stool and gas is shown the colon. No free air. Impression: Normal bowel gas pattern. PROCEDURE INTERPRETED AT [facility] DEPARTMENT OF RADIOLOGY Final Report Signed by: Levi Shepard M.D.
--- NOTE | 2017-01-19 13:17 | XRay Report ---
XR chest 1V portable Indication: Abdominal pain. Chest one view: Comparison 01/09/2017. The heart size and mediastinal contour are normal. The lungs and pleural spaces are clear. Bones are unremarkable. Impression: Negative chest. PROCEDURE INTERPRETED AT [facility] DEPARTMENT OF RADIOLOGY Final Report Signed by: Levi Shepard M.D.
[2017-01-19 13:35] LABS: Basophils # 0.1 10*3/uL (0.0-0.2); Basophils % 0.8 % (0.0-0.8); Eosinophils # 0.2 10*3/uL (0.0-0.87); Eosinophils % 1.4 % (0.00-10.9); Hematocrit 31.7 VOL% (35.7-47.0); Hemoglobin 10.7 GM/DL (12.0-16.0); Immature Granulocytes % 0.3 %; Immature Granulocytes Absolute 0.04 #; Lymphocytes # 3.3 10*3/uL (1.4-4.0); Lymphocytes % 29.1 % (21.3-54.2); Mean Corpuscular HGB Conc 33.8 GM/DL (32-36); Mean Corpuscular Hemoglobin 29 PG (27-34); Mean Corpuscular Volume 86.6 FL (87-102); Mean Platelet Volume 9.6 FL (9.6-12.0); Monocytes # 0.9 10*3/uL (0.11-0.8); Monocytes % 7.9 % (1.7-12.7); Neutrophils # 6.9 10*3/uL (1.4-7.4); Neutrophils % 60.5 % (38.7-73.9); Platelet Count 506 T/CUMM (130-400); Red Blood Count 3.66 MC/CUMM (3.8-5.5); Red Cell Distribution Width 14.6 % (9.3-17.3); White Blood Count 11.5 T/CUMM (4-12)
[2017-01-19 13:40] LABS: PT Patient Result 10.7 SECS; Partial Thromboplastin Time 24.4 SECS (0-40)
[2017-01-19 13:50] LABS: Lactic Acid 1.6 MMOL/L (0.4-2.0)
[2017-01-19 13:51] LABS: Albumin 2.4 G/DL (3.4-5.0); Bilirubin,Total 0.4 MG/DL (0.2-1.0); Calcium 9.5 MG/DL (8.5-10.1); Osmolality,Calculated 276.1 MOS/KG (273-304); Potassium 3.5 MMOL/L (3.5-5.1); Total Protein 8.1 G/DL (6.4-8.3)
[2017-01-19 13:52] LABS: Apearance,Urine Slightly Hazy (Clear); Bilirubin,Urine Negative (Negative); Blood, Urine Small mg/dL (Negative); Glucose,Urine (UA) Negative (Negative); Hyaline Casts,Urine 3 /LPF (0-3); Ketones,Urine 5 mg/dL (Negative); Mucus,Urine Occasional /LPF (Occasional); Nitrite,Urine Negative (Negative); Protein,Urine >=500 MG/DL; RBC,Urine 15 /HPF (0-4); Squamous Epithelial Cell,Urine Occasional /HPF (0-10); Urine Color Yellow (Yellow); Urine Specific Gravity 1.015 (1.001-1.035); WBC,Urine 3 /HPF (0-6)
--- NOTE | 2017-01-19 14:35 | EKG Report ---
Stationary ECG Study [facility] ER Test Date: 01/19/2017 2:33:59 PM Pat Name: AMADO GUZMAN Department: Room: Gender: F Manager Sas: : 1975 Requested by: Mohit Rodrigues Order Number: [id number] Reading MD: ESTEFANY MOULTON Intervals [place] Rate: 91 P: 87 CT: 139 QRS: 41 QRSD: 97 T: -32 QT: 417 QTc: 466 Interpretive Statements SINUS RHYTHM POSSIBLE ANTERIOR MYOCARDIAL INFARCTION, OF INDETERMINATE AGE MODERATE T-WAVE ABNORMALITY, CONSIDER INFERIOR ISCHEMIA Electronically Signed On 01-19-17 17:12:56 CDT by ESTEFANY MOULTON [email or web address]
[2017-01-19] MEDS ORDERED: PROMETHAZINE 25 MG/1 ML VIAL IM STA (15:25)
[2017-01-19] MEDS ORDERED: PROMETHAZINE 25 MG/1 ML VIAL ONE (15:31)
--- NOTE | 2017-01-19 16:16 | CT Report ---
CT of the abdomen and pelvis with intravenous contrast 100 cc Omni 350. Axial images were obtained with sagittal and coronal 2-D reconstructions. No oral contrast was administered. Indication: Generalized abdominal pain. Comparison: December 15, 2016. December 09, 2016. The heart is mildly enlarged. There is left ventricular hypertrophy. Within the lumen of the left ventricle, there is a 15 mm low density filling defect. The lung bases are clear. There is no pericardial or pleural effusion. There is a small hiatal hernia. There is circumferential wall thickening of the distal esophagus which could be related to esophagitis. There is mild fatty infiltration of the liver. The gallbladder has been removed. No focal liver lesions are identified. No intrahepatic biliary ductal dilatation is seen. The spleen is not enlarged. No definite focal splenic abnormality seen. There is no adrenal enlargement. There is no pancreatic enlargement. The pancreatic duct is not dilated. The kidneys are normal in size, location, and contour. There is a 10 mm cyst in the left midpole. There is mixed atherosclerotic plaque within the distal abdominal aorta. There is intraluminal plaque present within the mid to distal aspect of the SMA, as was seen previously. There has been improvement in arterial flow within the internal iliac artery. There is narrowing suggested at both common femoral arteries. Note that this study is not an arteriogram. 05 The urinary bladder is mildly distended. The uterus is normal in size. There is a 3.6 cm fat-containing mass in the left adnexa, probably representing a dermoid. The right ovary is not enlarged. The gastric contour is grossly normal. The loops of small intestine are not dilated. The terminal ileum and appendix present a normal appearance. The colon is not dilated. There is no wall thickening, or characteristics of the bowel suggestive of ischemia. Colonic diverticula are present. Mildly enlarged left inguinal lymph nodes suggested some of this change may be related to arteriogram, clinical correlation recommended. Impression: 1. 15 mm filling defect suggested within the left ventricle. Note that CT is not particularly sensitive or specific regarding intracardiac lesions, an echocardiogram is recommended. 2. Mild fatty infiltration of the liver. 3. Small hiatal hernia and distal esophagitis suggested. 4. Small left renal cyst. 5. Significant atherosclerotic disease, with bilateral iliac stent placement. 6. Stranding opacities in the left inguinal area. This may be from recent arteriogram, clinical correlation recommended. There are some mildly inflamed lymph nodes present in this location. 7. Small left ovarian tumor containing fat, likely a dermoid. Osseous structures are unremarkable. Discussion with Dr. Bullock revealed without thrombus within the left ventricle is a known finding. The CT exam was performed using one or more of the following dose reduction techniques: Automated exposure control, adjustment of the mA and/or kV according to patient size, or use of iterative reconstruction technique. PROCEDURE INTERPRETED AT [facility] DEPARTMENT OF RADIOLOGY Final Report Signed by: Dr. Imani Collado
[2017-01-19] MEDS ORDERED: HYDROmorphone 2 MG/1 ML VIAL ONE (16:32)
[2017-01-19] MEDS ORDERED: HYDROmorphone 2 MG/1 ML VIAL IV STA (16:36)
--- NOTE | 2017-01-19 17:00 | Hospitalist History & Physical ---
Assessment and Plan - Time spent with patient Time spent with patient: Greater than 30 minutes (1) Abdominal pain Status: Acute Assessment and plan: 01/19/2017 admit Start IV fluids PRN anti-emetics PRN pain management Clear liquid diet Check A1c in a.m. check lipids Will discuss with Dr Guerra for further recommendations with care. Current Visit: Yes (2) Diabetes mellitus Status: Acute Current Visit: Yes (3) Essential hypertension Status: Acute Current Visit: Yes History of Present Illness Chief complaint: abdominal pain /nausea/ vomiting this morning History of present illness: Ms. Desai is a 41 year old black female w/PMHx of DM, HTN, PAD, GI bleed presented to the ED via EMS for further evaluation of abdominal pain, nausea and vomiting starting this a.m. She denies dark tarry stools, she denies hematemesis. She complains of generalized abdominal tenderness. She reports being complaint with medications. She denies fever, chills, or cough. She was recently discharged 01/15/17 after completed workup. EGD performed showed gastritis and was started on pantoprazole and metoclopramide. IN ED: H&H stable 10.7 & 31.7, Electrolytes stable, Creatinine 1.10, Glucose 249, alkaline phos 131. Lipase 473.0. Urinalysis: Negative leukocyte negative nitrite. 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 Chest x-ray: Negative chest. Abdominal x-ray: Normal bowel gas pattern. Hospital medicine consulted for admission and further observation of abdominal pain, nausea, vomiting. Patient reports 6-7 cigarettes per day, denies alcohol or drug abuse. PCP: Dr. Lucas Patient denies follow-up with GI since discharge. Patient reports yearly flu vaccine. After discussion with Dr. Bullock in the ED and Dr. Guerra with hospital medicine, it was agreed to admit patient for further evaluation, observation of abdominal pain. Home medications to be reviewed, reconciliation to follow. Home Medications Medication Instructions Recorded Confirmed Type Atorvastatin [Lipitor] 20 mg PO BEDTIME #30 tablet 07/29/15 01/09/17 Rx Lisinopril [Prinivil] 40 mg PO DAILY #30 tablet 07/29/15 01/09/17 Rx glyBURIDE [Diabeta] 5 mg PO BID W/MEALS #60 tablet 07/29/15 01/09/17 Rx Nicotine 21 mg/24 Hr Patch 1 patch TRANSDERM DAILY #30 patch 12/01/16 01/09/17 Rx [Nicoderm CQ 21 mg/24 hr Patch] Carvedilol [Coreg] 25 mg PO BID #60 tablet 12/08/16 01/09/17 Rx Apixaban [Eliquis] 5 mg PO BID #60 tablet 12/22/16 01/09/17 Rx Alum/Mag/Simeth Max Str Liquid 30 ml PO Q6H PRN 12/26/16 01/09/17 Rx [Mylanta Max Strength Liquid] Metoclopramide Tab [Reglan Tab] 10 mg PO ACHS tablet 12/26/16 01/09/17 Rx Zaleplon [Sonata] 10 mg PO BEDTIME PRN capsule 12/26/16 01/09/17 Rx metFORMIN [Glucophage] 500 mg PO DAILY W/BREAKFAST tablet 12/26/16 01/09/17 Rx oxyCODONE/ACETAMINOPHEN 5-325 1 tablet PO Q6H #10 tablet 01/07/17 01/09/17 Rx [Percocet 5-325] Aspirin EC Tab 81 mg PO QAM 01/09/17 01/09/17 History Docusate Sodium Cap [Colace Cap] 100 mg PO BID PRN 01/09/17 01/09/17 History FLUoxetine [PROzac] 20 mg PO QAM 01/09/17 01/09/17 History Linezolid Tab [Zyvox Tab] 600 mg PO Q12HR #10 tablet 01/15/17 Rx Allergies Allergy/AdvReac Type Severity Reaction Status Date / Time No Known Allergies Allergy Verified 01/19/17 12:56 Medical,Surgical,& Family Hx - Medical History Cardio: History of: Hypertension, PVD (VASCULAR STENTS 2017 TO LEFT LEG), Cardiovascular Problems (Left apical thrombus) Neurology: History of: Cerebrovascular Accident (2016- right side deficit), Peripheral Neuropathy No history of: Seizures HEENT: History of: Eye Problem (GLASSES) Endocrine: History of: Diabetes Mellitus (NIDDM) (since 1996, states didn't take insulin only pills at home), Dyslipidemia Respiratory: No history of: Respiratory Problems Genitourinary: History of: Recurring Urinary Tract Infections Gastrointestinal: History of: GERD (Since 2006), Pancreatitis (2006) Musculoskeletal: History of: Amputation (5th toe on left foot), Back/Neck Problems, Musculoskeletal Problems (ARTHRITIS.) Hematology: History of: Clotting Problems (Blood clots in legs & heart- december 2016) Reproductive: History of: Abnormal Pap Smear (2011) Other: History of: MRSA (Left foot), Miscellaneous Medical Problems (DVT 12/2016) - Surgical History Cardiac Surgeries: Patient Denies: Femoral-Popliteal Bypass Graft, Cardiac Catheterization, Cardiac Surgery, Carotid Endarterectomy, Internal Defibrillator, Vascular Access Devices Thoracic Surgeries: Patient denies;: Kidney (Renal Surgery), Lithotripsy, Nephrectomy, Organ Transplant, Lobectomy Neurologic Surgeries: Patient denies: Neurologic Surgery HEENT Surgeries: Patient denies: Carotid Endarterectomy, Eye Surgery, Thyroid Surgery, Tonsilectomy & Adenoidectomy Abdominal Surgeries: Surgical HX of: Abdominal Surgery, Cholecystectomy (2012), Colonoscopy Patient denies: Splenectomy Reproductive Surgeries: Patient denies;: Breast Surgery, Section, Cystoscopy, Dilation and Curettage, Genitourinary Surgery, Gynecologic Surgery, Hysterectomy, Tubal Ligation Orthopedic Surgeries: Patient denies;: Implanted Devices, Orthopedic Surgery, Spinal Surgery, Total Hip Replacement, Total Knee Replacement - Family History Family History: Reports;: Family Cancer (uncle-colon, aunt-breast, aunt-leukemia ), Family Diabetes (Father), Family Heart Disease (Mother- [place]), Family Hypertension (Mother), Family Stroke (Mother) Denies;: Family Anesthesia Reaction, Family Psychiatric Problems - Social History Smoking Status: Current every day smoker Frequency of Alcohol Use: None Type of Drug Use: None Marital Status: Single Lives With:: Lives with aunt Functional capacity: uses cane/walker (Uses walker) 12 point system: reviewed and no additional remarkable complaints except as stated - Constitutional Constitutional: Absent: chills, fever(s) - Cardiovascular Cardiovascular: Absent: chest pain at rest, chest pain with activity, dyspnea, dyspnea on exertion - Respiratory Respiratory: Absent: dyspnea, dyspnea on exertion - Gastrointestinal Gastrointestinal: Present: abdominal pain, nausea, vomiting. Absent: coffee ground emesis, diarrhea, hematemesis, melena Exam - Constitutional Vitals: Period Temp Pulse Resp BP Sys/Chavarria Pulse Ox Last 24 Hr 96.9 F-96.9 F 82-101 18-24 159-229/94-111 98-100 General appearance: normal weight, no acute distress - Head Head exam: Present: normal inspection - Eye Eye exam: Present: EOMI Pupils: Present: ANTIONETTE - ENT ENT exam: Present: normal exam - Neck Neck exam: Present: normal inspection. Absent: thyromegaly - Respiratory Respiratory exam: Present: clear to auscultation bilaterally. Absent: rhonchi, stridor, wheezes - Cardiovascular Cardiovascular exam: Present: regular rate and rhythm - GI/Abdominal GI/Abdominal exam: Present: normal bowel sounds, tenderness (Generalized), soft. Absent: guarding, rebound - Extremities Exam Extremities exam: Present: normal inspection, full ROM. Absent: edema - Neurological Exam Neurological exam: Present: alert, oriented X3, CN II-XII intact - Psychiatric Psychiatric exam: Present: flat affect. Absent: agitated, anxious - Skin Skin exam: Present: normal color, warm, dry Results - Labs CBC & BMP: 01/19/17 13:20 01/19/17 13:20 Lab Results: I have reviewed the past 24 hour labs Labs: Lipase: 473 Alkaline phosphate 131 AST 11 ALT 16 Total bilirubin 0.40 - Diagnostic Findings Procedure: Abdominal x-ray: report reviewed by me (Normal bowel gas pattern), Chest x-ray: report reviewed by me (Negative chest), CT Abdomen and Pelvis: report reviewed by me (Pancreatic duct is not dilated there is no pancreatic enlargement there is no adrenal enlargement, mild fatty infiltration of the liver, small hiatal hernia and distal esophagitis suggested, small left renal cyst, significant arthrosclerotic disease with bilateral iliac stent placement, stranding opacities in the left inguinal area with there are some mildly inflamed lymph nodes present in that location, small left ovarian tumor contact containing fat, likely a dermoid)
[2017-01-19] MEDS ORDERED: ACETAMINOPHEN 325 MG TABLET PO PRN (17:30)
[2017-01-19 18:30] LABS: Lymphocytes 25 % (20-55); Platelet Estimate Increased; Segmented Neutrophils 70 % (50-85); Total Cells Counted 100
[2017-01-19] MEDS ORDERED: hydrALAZINE 20 MG/1 ML VIAL IV ONE (18:32)
[2017-01-19] MEDS: hydrALAZINE 20 MG/1 ML VIAL IV PRN (20:31)
[2017-01-19] MEDS: PROMETHAZINE 25 MG/1 ML VIAL IM PRN (20:32)
[2017-01-19] MEDS: SODIUM CHLORIDE 0.9% 1,000 ML IV SCH (20:33)
[2017-01-20] MEDS: SODIUM CHLORIDE 0.9% 1,000 ML IV SCH ×3 (04:42→20:21)
[2017-01-20 06:29] LABS: Basophils % 0.3 % (0.0-0.8); Eosinophils % 0.3 % (0.00-10.9); Hematocrit 30.8 VOL% (35.7-47.0); Hemoglobin 10.3 GM/DL (12.0-16.0); Immature Granulocytes % 0.5 %; Immature Granulocytes Absolute 0.05 #; Lymphocytes % 19.6 % (21.3-54.2); Mean Corpuscular HGB Conc 33.4 GM/DL (32-36); Mean Corpuscular Hemoglobin 29 PG (27-34); Mean Platelet Volume 9.6 FL (9.6-12.0); Monocytes # 0.9 10*3/uL (0.11-0.8); Monocytes % 8.9 % (1.7-12.7); Neutrophils # 7.3 10*3/uL (1.4-7.4); Neutrophils % 70.4 % (38.7-73.9); Platelet Count 439 T/CUMM (130-400); Red Blood Count 3.54 MC/CUMM (3.8-5.5); Red Cell Distribution Width 14.7 % (9.3-17.3); White Blood Count 10.4 T/CUMM (4-12)
[2017-01-20] MEDS: hydrALAZINE 20 MG/1 ML VIAL IV PRN ×2 (06:41→13:24)
[2017-01-20 07:03] LABS: Calcium 8.9 MG/DL (8.5-10.1); Magnesium 1.5 MG/DL (1.8-2.4); Osmolality,Calculated 275.1 MOS/KG (273-304); Potassium 3.3 MMOL/L (3.5-5.1); Risk Ratio 3.05; VLDL CHOLESTEROL 16.6 MG/DL
[2017-01-20] MEDS: PROMETHAZINE 25 MG/1 ML VIAL IM PRN (07:44)
--- NOTE | 2017-01-20 11:32 | General Surgery Consult Note ---
Assessment and Plan (1) Abdominal pain Status: Acute Assessment and plan: This patient is having abdominal pain and I do see some irregularities on her CT scan with IV contrast and her SMA. It is hard to trace out her distal SMA and it is unclear if there is some small vessel disease here could be causing her abdominal pain. I will obtain a CT angiogram of the abdomen and pelvis to further evaluate this today. Current Visit: Yes History of Present Illness Chief complaint: Abdominal pain History of present illness: Ms. Desai is a 41 year old female with history of left ventricular thrombus who presents to the hospital with abdominal pain. She has been admitted multiple times for abdominal pain in the last couple months and this is a similar episode. She had a CT scan done in the ER last night and I was told that the mesenteric system was normal on her CT scan and she was admitted to the hospitalist service for management and further workup. The patient continues to have abdominal pain this morning. She is slightly tachycardic. Her lactic acid was normal in the ER yesterday and her creatinine is better today than it was yesterday. Home Medications Medication Instructions Recorded Confirmed Type Atorvastatin [Lipitor] 20 mg PO BEDTIME #30 tablet 07/29/15 01/19/17 Rx glyBURIDE [Diabeta] 5 mg PO BID W/MEALS #60 tablet 07/29/15 01/19/17 Rx Nicotine 21 mg/24 Hr Patch 1 patch TRANSDERM DAILY #30 patch 12/01/16 01/19/17 Rx [Nicoderm CQ 21 mg/24 hr Patch] Carvedilol [Coreg] 25 mg PO BID #60 tablet 12/08/16 01/19/17 Rx Apixaban [Eliquis] 5 mg PO BID #60 tablet 12/22/16 01/19/17 Rx Alum/Mag/Simeth Max Str Liquid 30 ml PO Q6H PRN 12/26/16 01/19/17 Rx [Mylanta Max Strength Liquid] Metoclopramide Tab [Reglan Tab] 10 mg PO ACHS tablet 12/26/16 01/19/17 Rx metFORMIN [Glucophage] 500 mg PO DAILY W/BREAKFAST tablet 12/26/16 01/19/17 Rx Aspirin EC Tab 81 mg PO QAM 01/09/17 01/19/17 History Docusate Sodium Cap [Colace Cap] 100 mg PO BID PRN 01/09/17 01/19/17 History FLUoxetine [PROzac] 20 mg PO QAM 01/09/17 01/19/17 History Lisinopril [Prinivil] 40 mg PO QAM 01/19/17 01/19/17 History oxyCODONE/ACETAMINOPHEN 5-325 1 tablet PO Q6H PRN 01/19/17 01/19/17 History [Percocet 5-325] Allergies Allergy/AdvReac Type Severity Reaction Status Date / Time No Known Allergies Allergy Verified 01/19/17 12:56 Medical,Surgical,& Family Hx - Medical History Cardio: History of: Hypertension, PVD (VASCULAR STENTS 2017 TO LEFT LEG), Cardiovascular Problems (Left apical thrombus) Neurology: History of: Cerebrovascular Accident (2015- right side deficit), Peripheral Neuropathy No history of: Seizures HEENT: History of: Eye Problem (GLASSES) Endocrine: History of: Diabetes Mellitus (NIDDM) (since 1996, states didn't take insulin only pills at home), Dyslipidemia Respiratory: No history of: Respiratory Problems Genitourinary: History of: Recurring Urinary Tract Infections Gastrointestinal: History of: GERD (Since 2006), Pancreatitis (2006) Musculoskeletal: History of: Amputation (5th toe on left foot), Back/Neck Problems, Musculoskeletal Problems (ARTHRITIS.) Hematology: History of: Clotting Problems (Blood clots in legs & heart- december 2016) Reproductive: History of: Abnormal Pap Smear (2011) Other: History of: MRSA (Left foot), Miscellaneous Medical Problems (DVT 12/2016) - Surgical History Cardiac Surgeries: Patient Denies: Femoral-Popliteal Bypass Graft, Cardiac Catheterization, Cardiac Surgery, Carotid Endarterectomy, Internal Defibrillator, Vascular Access Devices Thoracic Surgeries: Patient denies;: Kidney (Renal Surgery), Lithotripsy, Nephrectomy, Organ Transplant, Lobectomy Neurologic Surgeries: Patient denies: Neurologic Surgery HEENT Surgeries: Patient denies: Carotid Endarterectomy, Eye Surgery, Thyroid Surgery, Tonsilectomy & Adenoidectomy Abdominal Surgeries: Surgical HX of: Abdominal Surgery, Cholecystectomy (2012), Colonoscopy Patient denies: Splenectomy Reproductive Surgeries: Patient denies;: Breast Surgery, Section, Cystoscopy, Dilation and Curettage, Genitourinary Surgery, Gynecologic Surgery, Hysterectomy, Tubal Ligation Orthopedic Surgeries: Patient denies;: Implanted Devices, Orthopedic Surgery, Spinal Surgery, Total Hip Replacement, Total Knee Replacement - Family History Family History: Reports;: Family Cancer (uncle-colon, aunt-breast, aunt-leukemia ), Family Diabetes (Father), Family Heart Disease (Mother- [place]), Family Hypertension (Mother), Family Stroke (Mother) Denies;: Family Anesthesia Reaction, Family Psychiatric Problems - Social History Smoking Status: Current every day smoker Frequency of Alcohol Use: None Type of Drug Use: None - Constitutional Constitutional: Present: as per HPI - EENT Nose, mouth and throat: Present: as per HPI - Cardiovascular Cardiovascular: Present: as per HPI - Respiratory Respiratory: Present: as per HPI - Gastrointestinal Gastrointestinal: Present: as per HPI - Genitourinary Genitourinary: Present: as per HPI - Musculoskeletal Musculoskeletal: Present: as per HPI - Neurological Neurological: Present: as per HPI - Endocrine Endocrine: Present: as per HPI Hematologic/Lymphatic: Present: as per HPI Exam - Constitutional Vitals: Period Temp Pulse Resp BP Sys/Chavarria Pulse Ox Last 24 Hr 96.9 F-97.9 F 82-115 18-24 135-229/67-111 96-100 General appearance: no acute distress, over weight - Head Head exam: Present: normal inspection, normocephalic - Eye Eye exam: Present: EOMI Pupils: Present: ANTIONETTE - ENT ENT exam: Present: normal exam Mouth exam: Present: normal external inspection, normal voice - Neck Neck exam: Present: normal inspection, trachea midline - Respiratory Respiratory exam: Present: clear to auscultation bilaterally. Absent: accessory muscle use, chest wall tenderness - Cardiovascular Cardiovascular exam: Present: RRR - GI/Abdominal GI/Abdominal exam: Present: normal bowel sounds, tenderness (There is tenderness in the periumbilical region with no peritoneal signs.), soft - Extremities Exam Extremities exam: Present: normal inspection, normal capillary refill - Back Exam Back exam: Present: normal inspection - Neurological Exam Neurological exam: Present: alert, oriented X3 Speech: Present: normal - Skin Skin exam: Present: normal color, warm Results - Labs CBC & BMP: 01/20/17 05:19 01/20/17 05:19 - Diagnostic Findings Procedure: CT Abdomen and Pelvis: image reviewed by me, report reviewed by me ( There appears to be an area of intimal irregularity in the proximal SMA and the vessels diet out distally in the SMA is hard to tell if there is any thrombus or embolism here.)
[2017-01-20 11:51] LABS: Hematocrit 28.9 VOL% (35.7-47.0); Hemoglobin 9.8 GM/DL (12.0-16.0)
--- NOTE | 2017-01-20 12:37 | Hospitalist Progress Note ---
Hospitalist: Subjective Interval history: Patient admitted for intractable n/v/abdominal pain. This morning, nursing staff notes that her vomitus was dark brown. Patient continues to have abdominal pain. Exam - Constitutional Vitals: Period Temp Pulse Resp BP Sys/Chavarria Pulse Ox Last 24 Hr 96.9 F-97.9 F 82-115 18-24 135-229/67-111 96-100 General appearance: mild distress (mild to moderate painful distress) - Eye Eye exam: Present: EOMI Pupils: Present: ANTIONETTE - Respiratory Respiratory exam: Present: clear to auscultation bilaterally. Absent: rales, rhonchi, wheezes - Cardiovascular Cardiovascular exam: Present: tachycardia - GI/Abdominal GI/Abdominal exam: Present: normal bowel sounds, tenderness, soft, other (lower abdominal tenderness without any rebound or guarding). Absent: distended, rebound - Extremities Exam Extremities exam: Absent: edema - Neurological Exam Neurological exam: Present: alert, oriented X3 - Psychiatric Psychiatric exam: Present: normal affect, normal mood Results - Labs CBC & BMP: 01/20/17 11:44 01/20/17 05:19 - Impressions Active Issues: 1. Acute on chronic abdominal pain; thoughts include gastroparesis, gastritis, adhesive disease; ischemic bowel disease 2. Intractable nausea and vomiting with possible hematemesis; so far h/h is stable compared to prior admission levels 3. h/o GIB 4. h/o gastritis 5. HypoK 6. hypoMg 7. h/o DM, hbA1c: 7.6 8. h/o left ventricular thrombus: off eliquis 9. h/o PAD 10. h/o HTN: blood pressure controlled Plan: appreciate help by surgery. Noted plan for CT angiogram given SMA abnormalities. Continue supportive care with pain control/anti emetics/IVFs; replete electrolytes; add PPI; consult GI; serial monitoring of H/H; will hold anti coagulation for left ventricular thrombus given possible GIB.
[2017-01-20] MEDS ORDERED: MAGNESIUM SULF RIDER 2 GM in PREMIX 1 EACH IV ONE (12:44)
[2017-01-20] MEDS ORDERED: POTASSIUM CHLORIDE RIDER 20 MEQ in PREMIX 1 EACH IV PRN (12:45)
--- NOTE | 2017-01-20 13:07 | Gastrointestinal Consult Note ---
Assessment and Plan (1) Coffee ground emesis Status: Acute Assessment and plan: Recurrent nausea and vomiting with recent endoscopy showing no significant pathology 2. I suspect most of this is combination of retching and anticoagulation. Would continue antiemetics as required and if vomiting persists consider NG tube placement. At this time we will not plan repeat GI evaluation unless evidence of active bleeding develops. Monitor H&H and continue PPI treatment. Current Visit: Yes (2) Abdominal pain Status: Acute Assessment and plan: Unclear etiology with no definitive findings on multiple evaluation no evidence to suggest acute abdomen or intestinal ischemia will discuss with surgery regarding utility of arteriography but I I suspect a large portion of her symptoms are functional. Current Visit: Yes History of Present Illness Chief complaint: Coffee-ground emesis and abdominal pain History of present illness: Ms. Desai is a 41 year old female Who was just recently discharged from extended hospital stay for evaluation of abdominal pain and coffee-ground emesis. She has had 2 endoscopies in the last month with no definitive source of any GI bleeding seen other than some mild gastritis likely secondary to retching. Patient continues on anticoagulation therapy for hypercoagulable state and previous stent placement. She has vague complaints of abdominal pain is a very poor historian she has had multiple evaluations with no definitive findings. At this time she remains a very vague description of diffuse abdominal pain. Home Medications Medication Instructions Recorded Confirmed Type Atorvastatin [Lipitor] 20 mg PO BEDTIME #30 tablet 07/29/15 01/19/17 Rx glyBURIDE [Diabeta] 5 mg PO BID W/MEALS #60 tablet 07/29/15 01/19/17 Rx Nicotine 21 mg/24 Hr Patch 1 patch TRANSDERM DAILY #30 patch 12/01/16 01/19/17 Rx [Nicoderm CQ 21 mg/24 hr Patch] Carvedilol [Coreg] 25 mg PO BID #60 tablet 12/08/16 01/19/17 Rx Apixaban [Eliquis] 5 mg PO BID #60 tablet 12/22/16 01/19/17 Rx Alum/Mag/Simeth Max Str Liquid 30 ml PO Q6H PRN 12/26/16 01/19/17 Rx [Mylanta Max Strength Liquid] Metoclopramide Tab [Reglan Tab] 10 mg PO ACHS tablet 12/26/16 01/19/17 Rx metFORMIN [Glucophage] 500 mg PO DAILY W/BREAKFAST tablet 12/26/16 01/19/17 Rx Aspirin EC Tab 81 mg PO QAM 01/09/17 01/19/17 History Docusate Sodium Cap [Colace Cap] 100 mg PO BID PRN 01/09/17 01/19/17 History FLUoxetine [PROzac] 20 mg PO QAM 01/09/17 01/19/17 History Lisinopril [Prinivil] 40 mg PO QAM 01/19/17 01/19/17 History oxyCODONE/ACETAMINOPHEN 5-325 1 tablet PO Q6H PRN 01/19/17 01/19/17 History [Percocet 5-325] Allergies Allergy/AdvReac Type Severity Reaction Status Date / Time No Known Allergies Allergy Verified 01/19/17 12:56 Medical,Surgical,& Family Hx - Medical History Cardio: History of: Hypertension, PVD (VASCULAR STENTS 2017 TO LEFT LEG), Cardiovascular Problems (Left apical thrombus) Neurology: History of: Cerebrovascular Accident (2015- right side deficit), Peripheral Neuropathy No history of: Seizures HEENT: History of: Eye Problem (GLASSES) Endocrine: History of: Diabetes Mellitus (NIDDM) (since 1996, states didn't take insulin only pills at home), Dyslipidemia Respiratory: No history of: Respiratory Problems Genitourinary: History of: Recurring Urinary Tract Infections Gastrointestinal: History of: GERD (Since 2006), Pancreatitis (2006) Musculoskeletal: History of: Amputation (5th toe on left foot), Back/Neck Problems, Musculoskeletal Problems (ARTHRITIS.) Hematology: History of: Clotting Problems (Blood clots in legs & heart- december 2016) Reproductive: History of: Abnormal Pap Smear (2011) Other: History of: MRSA (Left foot), Miscellaneous Medical Problems (DVT 12/2016) - Surgical History Cardiac Surgeries: Patient Denies: Femoral-Popliteal Bypass Graft, Cardiac Catheterization, Cardiac Surgery, Carotid Endarterectomy, Internal Defibrillator, Vascular Access Devices Thoracic Surgeries: Patient denies;: Kidney (Renal Surgery), Lithotripsy, Nephrectomy, Organ Transplant, Lobectomy Neurologic Surgeries: Patient denies: Neurologic Surgery HEENT Surgeries: Patient denies: Carotid Endarterectomy, Eye Surgery, Thyroid Surgery, Tonsilectomy & Adenoidectomy Abdominal Surgeries: Surgical HX of: Abdominal Surgery, Cholecystectomy (2012), Colonoscopy Patient denies: Splenectomy Reproductive Surgeries: Patient denies;: Breast Surgery, Section, Cystoscopy, Dilation and Curettage, Genitourinary Surgery, Gynecologic Surgery, Hysterectomy, Tubal Ligation Orthopedic Surgeries: Patient denies;: Implanted Devices, Orthopedic Surgery, Spinal Surgery, Total Hip Replacement, Total Knee Replacement - Family History Family History: Reports;: Family Cancer (uncle-colon, aunt-breast, aunt-leukemia ), Family Diabetes (Father), Family Heart Disease (Mother- [place]), Family Hypertension (Mother), Family Stroke (Mother) Denies;: Family Anesthesia Reaction, Family Psychiatric Problems - Social History Smoking Status: Current every day smoker Frequency of Alcohol Use: None Type of Drug Use: None - Constitutional Constitutional: Present: fatigue. Absent: anorexia, chills, fever(s) - EENT Eyes: Absent: blurry vision Ears: Absent: decreased hearing Nose, mouth and throat: Absent: dysphagia, epistaxis - Cardiovascular Cardiovascular: Absent: chest pain at rest, chest pain with activity - Respiratory Respiratory: Absent: cough, dyspnea, dyspnea on exertion - Gastrointestinal Gastrointestinal: Present: abdominal pain, bloating, coffee ground emesis, nausea. Absent: dyspepsia - Genitourinary Genitourinary: Absent: flank pain, hematuria - Neurological Neurological: Absent: confusion, convulsions - Hematologic/Lymphatic Hematologic/Lymphatic: Absent: easy bleeding, lymphadenopathy Exam - Constitutional Vitals: Period Temp Pulse Resp BP Sys/Chavarria Pulse Ox Last 24 Hr 97.5 F-97.9 F 82-115 18-24 135-223/67-111 96-100 General appearance: normal weight, no acute distress - Head Head exam: Present: normal inspection, normocephalic, atraumatic - Eye Eye exam: Present: EOMI. Absent: conjunctival injection, scleral icterus Pupils: Present: ANTIONETTE. Absent: dilated, irregular - ENT ENT exam: Present: normal oropharynx - Neck Neck exam: Absent: lymphadenopathy, thyromegaly - Respiratory Respiratory exam: Present: clear to auscultation bilaterally. Absent: accessory muscle use, rales - Cardiovascular Cardiovascular exam: Present: regular rate and rhythm. Absent: systolic murmur - GI/Abdominal GI/Abdominal exam: Present: soft. Absent: ascites, distended, mass, organomegaly, tenderness, rebound - Extremities Exam Extremities exam: Absent: edema - Neurological Exam Neurological exam: Present: oriented X3 - Psychiatric Psychiatric exam: Present: depressed - Skin Skin exam: Present: dry Results - Labs CBC & BMP: 01/20/17 11:44 01/20/17 05:19 Lab Results: I have reviewed the past 24 hour labs - Diagnostic Findings Procedure: CT Abdomen and Pelvis: report reviewed by me
[2017-01-20] MEDS: HYDROmorphone 2 MG/1 ML VIAL IV PRN ×3 (13:25→20:15)
--- NOTE | 2017-01-20 13:29 | CT Report ---
CT angiogram of the abdomen and pelvis with intravenous contrast. 100 cc Omni 350. Axial images were obtained with sagittal and coronal reconstructions. In addition, 3-D reconstructions were formatted. Indication: Possible SMA intimal flap, dissection. The heart is enlarged. There is left ventricular hypertrophy. There is a 1.5 cm area of low density within the left ventricle, which is consistent with the clinically described intraventricular thrombus. The lung bases are essentially clear. The abdominal aorta is of normal caliber throughout its length. Beginning in an infrarenal location, there is considerable mixed bland and calcific plaque present. There are bilateral common iliac artery stents. There is mild, about 10% narrowing of the origin of the celiac trunk. About 6 cm beyond the origin of the SMA, there is mixed irregular predominantly bland plaque present within the SMA. Contrast material extends into the more distal branches, without evidence of occlusion. No evidence of intimal flap or dissection seen. There are bilateral double renal arteries. The upper renal artery on the left demonstrates bland thrombus of bowel with centimeter from its origin, which is nonoccluding. The BABATUNDE is patent. Just below the right iliac artery stents, there begins intraluminal filling defect and irregularity, which is nonocclusive. This extends to the common femoral artery, where there are findings suspicious for an intimal flap. Just below the left iliac artery stent, there is mixed predominantly bland plaque, and there is a prominent focal area of narrowing by bland plaque at the left common femoral artery. There is no evidence of bowel wall thickening, dilatation, or edema to suggest bowel ischemia. There are stranding opacities and fluid in the left groin, possibly from the previous procedure. Also again noted, fatty mass in the left ovary. Impression: 1. About 6 cm beyond the origin of the SMA, there is a moderate amount of mixed predominantly bland but irregular plaque which is nonocclusive. There are no secondary signs of bowel ischemia. The celiac and BABATUNDE are both widely patent. 2. Extensive external iliac and common femoral atherosclerotic disease. Suspected intimal flap involving the right common femoral artery, with a high level stenosis of the left common femoral artery. 3. Intraluminal filling defect within the left ventricle as described above. The CT exam was performed using one or more of the following dose reduction techniques: Automated exposure control, adjustment of the mA and/or kV according to patient size, or use of iterative reconstruction technique. PROCEDURE INTERPRETED AT [facility] DEPARTMENT OF RADIOLOGY Final Report Signed by: Dr. Imani Collado
[2017-01-20] MEDS: POTASSIUM CHLORIDE RIDER 10 MEQ in PREMIX 1 EACH IV PRN ×3 (16:14→20:22)
[2017-01-20] MEDS: PANTOPRAZOLE 40 MG VIAL IV SCH (20:19)
[2017-01-21] MEDS: HYDROmorphone 2 MG/1 ML VIAL IV PRN ×2 (01:09→05:35)
[2017-01-21] MEDS: POTASSIUM CHLORIDE RIDER 10 MEQ in PREMIX 1 EACH IV PRN (01:12)
[2017-01-21] MEDS: SODIUM CHLORIDE 0.9% 1,000 ML IV SCH ×5 (01:20→23:42)
[2017-01-21] MEDS: hydrALAZINE 20 MG/1 ML VIAL IV PRN ×3 (05:38→20:55)
[2017-01-21 06:25] LABS: Basophils # 0.1 10*3/uL (0.0-0.2); Basophils % 0.5 % (0.0-0.8); Eosinophils # 0.1 10*3/uL (0.0-0.87); Eosinophils % 1.2 % (0.00-10.9); Hematocrit 28.1 VOL% (35.7-47.0); Hemoglobin 9.2 GM/DL (12.0-16.0); Immature Granulocytes % 0.4 %; Immature Granulocytes Absolute 0.05 #; Lymphocytes # 3.5 10*3/uL (1.4-4.0); Lymphocytes % 30.8 % (21.3-54.2); Mean Corpuscular HGB Conc 32.7 GM/DL (32-36); Mean Corpuscular Hemoglobin 29 PG (27-34); Mean Corpuscular Volume 88.6 FL (87-102); Mean Platelet Volume 9.3 FL (9.6-12.0); Neutrophils # 6.6 10*3/uL (1.4-7.4); Neutrophils % 58.1 % (38.7-73.9); Platelet Count 387 T/CUMM (130-400); Red Blood Count 3.17 MC/CUMM (3.8-5.5); Red Cell Distribution Width 15.2 % (9.3-17.3); White Blood Count 11.3 T/CUMM (4-12)
[2017-01-21 06:54] LABS: Calcium 8.4 MG/DL (8.5-10.1); Magnesium 2.1 MG/DL (1.8-2.4); Osmolality,Calculated 277.5 MOS/KG (273-304); Potassium 3.4 MMOL/L (3.5-5.1)
[2017-01-21] MEDS: PANTOPRAZOLE 40 MG VIAL IV SCH ×2 (10:11→20:49)
--- NOTE | 2017-01-21 11:01 | Hospitalist Progress Note ---
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 She has had no further vomiting today. She has been evaluated by gastroenterology who has recommended continued medical management. Hemoglobin has been stable at 9.2. No fevers or chills. At this time will advance diet to clear liquids. Exam - Constitutional Vitals: Period Temp Pulse Resp BP Sys/Chavarria Pulse Ox Last 24 Hr 97.6 F-98.5 F 101-114 17-20 147-197/79-103 97-98 General appearance: no acute distress - Head Head exam: Present: normal inspection - Eye Eye exam: Present: EOMI - Neck Neck exam: Present: normal inspection - Respiratory Respiratory exam: Present: clear to auscultation bilaterally - Cardiovascular Cardiovascular exam: Present: regular rate and rhythm - GI/Abdominal GI/Abdominal exam: Present: normal bowel sounds - Extremities Exam Extremities exam: Present: normal inspection, full ROM - Neurological Exam Neurological exam: Present: alert, oriented X3 - Psychiatric Psychiatric exam: Present: normal affect - Skin Skin exam: Present: normal color Results - Labs CBC & BMP: 01/21/17 05:21 01/21/17 05:21
--- NOTE | 2017-01-21 11:25 | General Surgery Progress Note ---
Assessment and Plan (1) Abdominal pain Status: Acute Assessment and plan: The CT angiogram of the abdomen and pelvis yesterday did show an irregular area that looks like plaque in the superior mesenteric artery but it was not a thrombus or embolus and it was not occlusive. I will review the CT results with Dr. Gibson tomorrow but for now I will sign off on this patient. Please call back with any further questions Current Visit: Yes Subjective Patient reports: Present: no new complaints, still having pain, afebrile Exam - Constitutional Vitals: Period Temp Pulse Resp BP Sys/Chavarria Pulse Ox Last 24 Hr 97.6 F-98.5 F 101-114 17-20 147-197/79-103 97-98 General appearance: no acute distress, over weight - Head Head exam: Present: normal inspection, normocephalic - Eye Eye exam: Present: EOMI Pupils: Present: ANTIONETTE - ENT ENT exam: Present: normal exam Mouth exam: Present: normal external inspection, normal voice - Neck Neck exam: Present: normal inspection, trachea midline - Respiratory Respiratory exam: Absent: accessory muscle use, chest wall tenderness, prolonged expiratory phase - Cardiovascular Cardiovascular exam: Present: tachycardia. Absent: irregular rhythm, systolic murmur - GI/Abdominal GI/Abdominal exam: Present: tenderness (There is minimal abdominal tenderness on exam. There are no peritoneal signs.), soft - Extremities Exam Extremities exam: Present: normal inspection, normal capillary refill - Back Exam Back exam: Present: normal inspection - Neurological Exam Neurological exam: Present: alert, oriented X3 Speech: Present: normal - Skin Skin exam: Present: normal color, warm Results - Labs CBC & BMP: 01/21/17 05:21 01/21/17 05:21 - Diagnostic Findings Procedure: CT Abdomen and Pelvis: image reviewed by me, report reviewed by me ( There is an irregular plaque in the superior mesenteric artery that is nonocclusive.)
[2017-01-21] MEDS: MORPHINE 2 MG/1 ML SYRINGE IV PRN ×3 (11:57→20:52)
--- NOTE | 2017-01-21 13:23 | Event Note ---
Chief complaint abdominal pain. Patient reports feeling some better today. CT scan as discussed by Dr. Reyes has no clear evidence of vascular compromise. Would go ahead and increase her diet and see how she tolerates it at this time. Little else to offer from a GI standpoint may wish to consider transfer to tertiary facility for additional evaluation. Review of systems she denies shortness of breath or chest pain On exam she is afebrile vital signs are stable she is in no acute distress flat affect lids conjunctiva was unremarkable pharynx is benign neck is supple no JVD no thyromegaly or supraclavicular axillary nodes lungs clear to all station heart regular rate rhythm no murmur rub or gallop abdomen soft nondistended nontender no mass no hepatosplenomegaly bowel sounds normoactive extremities no clubbing cyanosis edema all 4 extremities. Recommendations-continue IV fluids and symptomatic treatment increase diet as tolerated.
[2017-01-21] MEDS: DOCUSATE SODIUM 100 MG CAPSULE PO SCH (20:49)
[2017-01-22] MEDS: SODIUM CHLORIDE 0.9% 1,000 ML IV SCH ×3 (06:21→16:20)
[2017-01-22 07:02] LABS: Basophils # 0.1 10*3/uL (0.0-0.2); Basophils % 0.6 % (0.0-0.8); Eosinophils # 0.2 10*3/uL (0.0-0.87); Eosinophils % 1.7 % (0.00-10.9); Hematocrit 27.3 VOL% (35.7-47.0); Immature Granulocytes % 0.3 %; Immature Granulocytes Absolute 0.03 #; Lymphocytes # 2.3 10*3/uL (1.4-4.0); Lymphocytes % 24.8 % (21.3-54.2); Mean Corpuscular Hemoglobin 29 PG (27-34); Mean Corpuscular Volume 88.9 FL (87-102); Mean Platelet Volume 8.8 FL (9.6-12.0); Monocytes # 0.9 10*3/uL (0.11-0.8); Monocytes % 9.4 % (1.7-12.7); Neutrophils # 5.9 10*3/uL (1.4-7.4); Neutrophils % 63.2 % (38.7-73.9); Platelet Count 339 T/CUMM (130-400); Red Blood Count 3.07 MC/CUMM (3.8-5.5); Red Cell Distribution Width 15.3 % (9.3-17.3); White Blood Count 9.3 T/CUMM (4-12)
[2017-01-22 07:29] LABS: Osmolality,Calculated 279.4 MOS/KG (273-304); Potassium 3.2 MMOL/L (3.5-5.1)
[2017-01-22] MEDS: DOCUSATE SODIUM 100 MG CAPSULE PO SCH ×2 (09:31→20:54)
[2017-01-22] MEDS: BISACODYL 5 MG TABLET PO SCH (09:31)
[2017-01-22] MEDS: MORPHINE 2 MG/1 ML SYRINGE IV PRN ×4 (09:32→20:55)
[2017-01-22] MEDS: PANTOPRAZOLE 40 MG VIAL IV SCH ×2 (09:36→20:51)
--- NOTE | 2017-01-22 10:09 | Gastrointestinal Progress Note ---
<Melba Armijo - Last Filed: 01/22/17 10:07> Assessment and Plan (1) Abdominal pain Status: Acute Assessment and plan: 01/22-no complaints of abdominal pain, nausea vomiting. H&H is stable at 01/31 with no overt bleeding. Tolerating small amounts of clear liquids. Plan an addendum to followed by Dr. Guthrie. Current Visit: Yes Gastroenterology - PN: Subj Interval history: CC: Abdominal pain Patient is seen awake alert lying in bed. She is noted to have somewhat of a flat affect at this time. She has denied any further abdominal pain, nausea or vomiting. States she is tolerating small amount of her diet at this time. There are no reports of overt bleeding. She says she has not had a bowel movement approximately 3 days. Her H&H stable at 01/31. Abdomen soft, nontender. ROS: Denies shortness breath or chest pain Exam (Progress Note) - Constitutional Vitals: Period Temp Pulse Resp BP Sys/Chavarria Pulse Ox Last 24 Hr 97.8 F-98.3 F 100-118 18-20 140-188/72-98 97-99 General appearance: normal weight, no acute distress - Head Head exam: Present: normal inspection, normocephalic - Eye Eye exam: Present: other (Lids and conjunctivae are unremarkable). Absent: scleral icterus - ENT ENT exam: Present: normal exam, normal oropharynx - Neck Neck exam: Present: normal inspection - Respiratory Respiratory exam: Present: clear to auscultation bilaterally. Absent: rales, rhonchi, wheezes - Cardiovascular Cardiovascular exam: Present: regular rate and rhythm. Absent: diastolic murmur , JVD, systolic murmur - GI/Abdominal GI/Abdominal exam: Present: normal bowel sounds, soft. Absent: ascites, distended, mass, organomegaly, tenderness - Extremities Exam Extremities exam: Present: normal inspection, full ROM - Back Exam Back exam: Present: normal inspection - Neurological Exam Neurological exam: Present: alert, oriented X3 - Psychiatric Psychiatric exam: Present: normal affect, normal mood - Skin Skin exam: Present: normal color, warm, dry Results - Labs CBC & BMP: 01/22/17 06:54 01/22/17 06:54 Lab Results: I have reviewed the past 24 hour labs <Freddie Guthrie - Last Filed: 01/22/17 10:44> Assessment and Plan (1) Coffee ground emesis Status: Acute Current Visit: Yes (2) Abdominal pain Status: Acute Current Visit: Yes Exam (Progress Note) - Constitutional Vitals: Period Temp Pulse Resp BP Sys/Chavarria Pulse Ox Last 24 Hr 97.8 F-98.3 F 100-118 18-20 140-188/72-98 97-99 Results - Labs CBC & BMP: 01/22/17 06:54 01/22/17 06:54
[2017-01-22] MEDS: APIXABAN 5 MG TABLET PO SCH ×2 (12:08→20:55)
[2017-01-22] MEDS: ONDANSETRON 4 MG/2 ML VIAL IV PRN ×2 (12:52→17:00)
--- NOTE | 2017-01-22 14:32 | Hospitalist Progress Note ---
Assessment and Plan - Time spent with patient Time spent with patient: Less than 30 minutes (1) Abdominal pain Status: Resolved Assessment and plan: 41-year-old -[place] female with history of diabetes, hypertension, PAD , hypercoagulopathy on Eliquis, history of stroke, and history of GI bleed admitted by the hospitalist service on 01/19/2017 with nausea and vomiting. General surgery and GI have seen the patient. Dr. Blanchard will see and examine patient and further recommendations to follow. Nausea/vomiting/coffee-ground emesis--Dr. Guthrie was consulted for her coffee- ground emesis. Patient has recently had 2 endoscopies in the last month with no definitive source of any GI bleeding seen. He suspects this is mostly a combination of her retching and anticoagulation. He recommends continuing her antiemetics and if vomiting persists consider NG tube placement. patient denies any nausea or vomiting this morning. She is tolerating a clear liquid diet and states she is willing to try a soft mechanical diet. Dr. Guthrie suggests if she continues to have these issues we may want to consider transfer to a tertiary facility for additional evaluation. He also ordered a gastric emptying study for in the a.m. Abdominal pain--Dr. Reyes from general surgery was consulted due to her history of left ventricular thrombus and abdominal pain. CT angiogram of the abdomen and pelvis showed an irregular area that look like plaque in the superior mesenteric artery but it was not a thrombus or embolus and was not occlusive. He has signed off. Hypercoagulable state--with patient's high risk for developing clots her her Eliquis was restarted today. It had been held due to coffee-ground emesis. Hypertension/diabetes--these are both well controlled and will continue to monitor. Hypokalemia--this is down to 3.2 today and is being replaced per protocol. Will recheck some labs in the morning. Current Visit: No Qualifiers: Abdominal location: right lower quadrant Qualified Code(s): R10.31 - Right lower quadrant pain (2) History of CVA (cerebrovascular accident) Status: Chronic Current Visit: No (3) Intractable nausea and vomiting Status: Resolved Current Visit: No (4) Cigarette nicotine dependence, uncomplicated Status: Chronic Current Visit: No (5) Hypokalemia Status: Acute Current Visit: No (6) Status post femoropopliteal bypass surgery Status: Acute Current Visit: No (7) Diabetes mellitus Status: Chronic Current Visit: No Qualifiers: Diabetes mellitus type: type 2 Diabetes mellitus complication status: without complication Diabetes mellitus longterm insulin use: without longterm use Qualified Code(s): E11.9 - Type 2 diabetes mellitus without complications (8) Peripheral vascular disease Status: Acute Current Visit: No (9) Chronic anticoagulation Status: Acute Current Visit: No (10) Hypercoagulable state Status: Acute Current Visit: No Hospitalist: Subjective Interval history: Patient indicates to me that she feels a little better this morning. She has had no nausea or vomiting with her clear liquid diet. She does still complain of intermittent abdominal pain requiring narcotics. Exam - Constitutional Vitals: Period Temp Pulse Resp BP Sys/Chavarria Pulse Ox Last 24 Hr 97.8 F-98.8 F 98-110 18-20 140-188/72-98 97-100 Exam: 41-year-old -[place] female, no acute distress, alert and oriented Chest clear CV regular rate and rhythm Abdomen soft and nontender Extremities no edema Results - Labs CBC & BMP: 01/22/17 06:54 01/22/17 06:54 Lab Results: I have reviewed the past 24 hour labs
[2017-01-22] MEDS ORDERED: NALOXONE 0.4 MG/ML VIAL IV ONE (15:25)
[2017-01-22] MEDS ORDERED: NALOXONE 0.4 MG/ML VIAL ONE (15:26)
--- NOTE | 2017-01-22 15:56 | CT Report ---
CT of the head without contrast. Indication: Altered level of consciousness. Comparison: December 22, 2016. There are stable areas of encephalomalacia involving the left parietal lobe, the left temporoparietal lobe, and the right parietal lobe. There are areas of low density in the periventricular white matter. There is no mass effect or midline shift. There is no evidence of acute hemorrhage. The calvarium is intact. Included paranasal sinuses and the mastoid air cells are clear. Impression: Multiple areas of encephalomalacia and white matter low density, most likely reflecting the sequelae of previous infarcts. This is stable compared to the previous exam. No acute abnormality. The CT exam was performed using one or more of the following dose reduction techniques: Automated exposure control, adjustment of the mA and/or kV according to patient size, or use of iterative reconstruction technique. PROCEDURE INTERPRETED AT [facility] DEPARTMENT OF RADIOLOGY Final Report Signed by: Dr. Imani Collado
--- NOTE | 2017-01-22 16:06 | Event Note ---
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 She was found staring off into space and was unresponsive. Her heart rate was around 90, SBP over 200, glucose 215. Her eyes were open, she had no nystagmus. Her pupils are equal and reactive to light. She did not respond to voice or sternal rub to start with but then blinked and focused on my face and answered me a little bit. We gave her Narcan and she briefly became a little more responsive but it didn't have too much effect- she had had 2mg Morphine at 1pm per her nurse and some hydrocodone also. She was able to cooperate with neuro exam and most notably she was weak in her upper extremities much more than her lower and in her right arm more than her left. 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 She moved both feet across the bed but did not raise and hold them. She is transferred to CCU. Stat head CT, EKG, troponins, EEG and neuro consult ordered. Also repeat of BMP because her potassium is being replaced. Her oral antiHTN are also going to be restarted with now doses and I will continue to use hydralazine as needed. She has a history of stroke and has had a back and forth course since the summer with limb threatening clotting, strokes, emboli from left ventricular clot and bleeding on anticoagulation. Her Eliquis was held on admission and restarted this morning.
[2017-01-22] MEDS: CARVEDILOL 25 MG TABLET PO SCH ×2 (16:20→20:54)
[2017-01-22] MEDS: LISINOPRIL 20 MG TABLET PO SCH (16:20)
[2017-01-22 16:44] LABS: Calcium 7.9 MG/DL (8.5-10.1); Osmolality,Calculated 276.7 MOS/KG (273-304); Potassium 3.1 MMOL/L (3.5-5.1)
[2017-01-22] MEDS: hydrALAZINE 20 MG/1 ML VIAL IV PRN (16:45)
--- NOTE | 2017-01-22 17:16 | Neurology Consult Note ---
History of Present Illness History of present illness: 41-year-old -[place] female with history of diabetes, hypertension, PAD , hypercoagulopathy on Eliquis, history of stroke, and history of GI bleed admitted by the hospitalist service on 01/19/2017 with nausea and vomiting. General surgery and GI have seen the patient. Patient developed a spell which lasted for a minute or less characterized by staring. MD witnessed this spell. She was not following commands during this bout. A CT of the head revealed old right occipital and left parietal lobe infarct. She certainly is at risk of seizures. Home Medications Medication Instructions Recorded Confirmed Type Atorvastatin [Lipitor] 20 mg PO BEDTIME #30 tablet 07/29/15 01/19/17 Rx glyBURIDE [Diabeta] 5 mg PO BID W/MEALS #60 tablet 07/29/15 01/19/17 Rx Nicotine 21 mg/24 Hr Patch 1 patch TRANSDERM DAILY #30 patch 12/01/16 01/19/17 Rx [Nicoderm CQ 21 mg/24 hr Patch] Carvedilol [Coreg] 25 mg PO BID #60 tablet 12/08/16 01/19/17 Rx Apixaban [Eliquis] 5 mg PO BID #60 tablet 12/22/16 01/19/17 Rx Alum/Mag/Simeth Max Str Liquid 30 ml PO Q6H PRN 12/26/16 01/19/17 Rx [Mylanta Max Strength Liquid] Metoclopramide Tab [Reglan Tab] 10 mg PO ACHS tablet 12/26/16 01/19/17 Rx metFORMIN [Glucophage] 500 mg PO DAILY W/BREAKFAST tablet 12/26/16 01/19/17 Rx Aspirin EC Tab 81 mg PO QAM 01/09/17 01/19/17 History Docusate Sodium Cap [Colace Cap] 100 mg PO BID PRN 01/09/17 01/19/17 History FLUoxetine [PROzac] 20 mg PO QAM 01/09/17 01/19/17 History Lisinopril [Prinivil] 40 mg PO QAM 01/19/17 01/19/17 History oxyCODONE/ACETAMINOPHEN 5-325 1 tablet PO Q6H PRN 01/19/17 01/19/17 History [Percocet 5-325] Allergies Allergy/AdvReac Type Severity Reaction Status Date / Time No Known Allergies Allergy Verified 01/19/17 12:56 12 point system: reviewed and no additional remarkable complaints except as stated Medical,Surgical,& Family Hx - Medical History Cardio: History of: Hypertension, PVD (VASCULAR STENTS 2017 TO LEFT LEG), Cardiovascular Problems (Left apical thrombus) Neurology: History of: Cerebrovascular Accident (2015- right side deficit), Peripheral Neuropathy No history of: Seizures HEENT: History of: Eye Problem (GLASSES) Endocrine: History of: Diabetes Mellitus (NIDDM) (since 1996, states didn't take insulin only pills at home), Dyslipidemia Respiratory: No history of: Respiratory Problems Genitourinary: History of: Recurring Urinary Tract Infections Gastrointestinal: History of: GERD (Since 2006), Pancreatitis (2006) Musculoskeletal: History of: Amputation (5th toe on left foot), Back/Neck Problems, Musculoskeletal Problems (ARTHRITIS.) Hematology: History of: Clotting Problems (Blood clots in legs & heart- december 2016) Reproductive: History of: Abnormal Pap Smear (2011) Other: History of: MRSA (Left foot), Miscellaneous Medical Problems (DVT 12/2016) - Surgical History Cardiac Surgeries: Patient Denies: Femoral-Popliteal Bypass Graft, Cardiac Catheterization, Cardiac Surgery, Carotid Endarterectomy, Internal Defibrillator, Vascular Access Devices Thoracic Surgeries: Patient denies;: Kidney (Renal Surgery), Lithotripsy, Nephrectomy, Organ Transplant, Lobectomy Neurologic Surgeries: Patient denies: Neurologic Surgery HEENT Surgeries: Patient denies: Carotid Endarterectomy, Eye Surgery, Thyroid Surgery, Tonsilectomy & Adenoidectomy Abdominal Surgeries: Surgical HX of: Abdominal Surgery, Cholecystectomy (2012), Colonoscopy Patient denies: Splenectomy Reproductive Surgeries: Patient denies;: Breast Surgery, Section, Cystoscopy, Dilation and Curettage, Genitourinary Surgery, Gynecologic Surgery, Hysterectomy, Tubal Ligation Orthopedic Surgeries: Patient denies;: Implanted Devices, Orthopedic Surgery, Spinal Surgery, Total Hip Replacement, Total Knee Replacement - Family History Family History: Reports;: Family Cancer (uncle-colon, aunt-breast, aunt-leukemia ), Family Diabetes (Father), Family Heart Disease (Mother- [place]), Family Hypertension (Mother), Family Stroke (Mother) Denies;: Family Anesthesia Reaction, Family Psychiatric Problems - Social History Smoking Status: Current every day smoker Frequency of Alcohol Use: None Type of Drug Use: None Exam - Constitutional Vitals: Period Temp Pulse Resp BP Sys/Chavarria Pulse Ox Last 24 Hr 97.8 F-98.8 F 98-110 18-20 140-188/72-98 97-100 Exam: GENERAL: Patient is in no acute distress. NECK: Neck is supple. There is no JVD. No carotid bruits present. No thyroid masses. CVS: First and second heart sounds are normal. There is no S3 present. Regular rate and rhythm. RESPIRATORY: Lungs are clear to auscultation without any rales or rhonchi. ABDOMEN: Soft and non-tender. Bowel sounds are present. There is no hepatosplenomegaly. EXT: There is no palpable edema. Peripheral pulses are present. Skin: No rashes Central Nervous system: General: Alert, awake and Oriented x 3 Speech: Fluent Comprehension: Fair Facial expressions: Normal Cranial Nerves: CN1/Olfactory: Normal CN II/ Optic: Normal, Visual Morales unreliable CN III, and : ANTIONETTE & EOMI CN V: Normal & intact CN VII: face is symmetric CNVIII: Normal CN XI/X/XI/XII: Intact and Normal Motor: Bulk and Tone is normal. Strength in the right 3-4/5 Strength in the left 3-4/5 Sensory: Grossly intact for all the modalities of PP, LT and temp sense Reflexes: 1+ and symmetrical Cerebellar function: Normal finger to nose testing. Toes: Equivocal Gait: Not tested Results - Labs CBC & BMP: 01/22/17 06:54 01/22/17 16:09 Assessment and Plan (1) Partial seizure Status: Acute Assessment and plan: Start Keppra 500 mg p.o. twice daily Agree with EEG Current Visit: Yes (2) History of CVA (cerebrovascular accident) Status: Chronic Assessment and plan: Continue Eliquis for now MRI brain without contrast Current Visit: No
[2017-01-22] MEDS: niCARdipine INJ 25 MG in SODIUM CHLORIDE 0.9% 240 ML IV SCH ×2 (17:55→23:00)
[2017-01-22] MEDS: levETIRAcetam 500 MG TABLET PO SCH (20:54)
[2017-01-22] MEDS: PROMETHAZINE 25 MG/1 ML VIAL IM PRN (20:58)
[2017-01-23] MEDS: POTASSIUM CHLORIDE RIDER 10 MEQ in PREMIX 1 EACH IV PRN ×3 (01:10→03:10)
[2017-01-23] MEDS: SODIUM CHLORIDE 0.9% 1,000 ML IV SCH ×4 (01:17→20:56)
[2017-01-23] MEDS: MORPHINE 2 MG/1 ML SYRINGE IV PRN ×5 (01:18→23:02)
[2017-01-23] MEDS: niCARdipine INJ 25 MG in SODIUM CHLORIDE 0.9% 240 ML IV SCH ×2 (04:17→18:16)
[2017-01-23 05:27] LABS: Basophils % 0.4 % (0.0-0.8); Eosinophils # 0.1 10*3/uL (0.0-0.87); Eosinophils % 0.6 % (0.00-10.9); Hematocrit 28.4 VOL% (35.7-47.0); Hemoglobin 9.5 GM/DL (12.0-16.0); Immature Granulocytes % 0.5 %; Immature Granulocytes Absolute 0.06 #; Lymphocytes # 1.9 10*3/uL (1.4-4.0); Lymphocytes % 17.8 % (21.3-54.2); Mean Corpuscular HGB Conc 33.5 GM/DL (32-36); Mean Corpuscular Hemoglobin 29 PG (27-34); Mean Corpuscular Volume 87.9 FL (87-102); Mean Platelet Volume 9.5 FL (9.6-12.0); Monocytes # 0.7 10*3/uL (0.11-0.8); Monocytes % 6.3 % (1.7-12.7); Neutrophils # 8.1 10*3/uL (1.4-7.4); Neutrophils % 74.4 % (38.7-73.9); Platelet Count 384 T/CUMM (130-400); Red Blood Count 3.23 MC/CUMM (3.8-5.5); Red Cell Distribution Width 15.1 % (9.3-17.3); White Blood Count 10.9 T/CUMM (4-12)
[2017-01-23 06:00] LABS: Calcium 8.3 MG/DL (8.5-10.1); Magnesium 1.8 MG/DL (1.8-2.4); Osmolality,Calculated 273.1 MOS/KG (273-304); Potassium 3.7 MMOL/L (3.5-5.1)
[2017-01-23] MEDS: PANTOPRAZOLE 40 MG VIAL IV SCH ×2 (09:50→20:54)
[2017-01-23] MEDS: APIXABAN 5 MG TABLET PO SCH ×2 (09:50→20:55)
[2017-01-23] MEDS: levETIRAcetam 500 MG TABLET PO SCH ×2 (09:50→20:55)
[2017-01-23] MEDS: LISINOPRIL 20 MG TABLET PO SCH (09:51)
[2017-01-23] MEDS: CARVEDILOL 25 MG TABLET PO SCH ×2 (09:51→20:54)
[2017-01-23] MEDS: DOCUSATE SODIUM 100 MG CAPSULE PO SCH ×2 (09:51→20:55)
[2017-01-23] MEDS: BISACODYL 5 MG TABLET PO SCH (09:51)
--- NOTE | 2017-01-23 10:18 | Hospitalist Progress Note ---
Assessment and Plan (1) Abdominal pain Status: Resolved Assessment and plan: The patient will continue on pain medication for her abdominal pain. The patient's GI consultation will be continued. We will continue the patient on Keppra for possible absence. We will continue observation in the critical care area and attempt to obtain MRI scan. Current Visit: No Qualifiers: Abdominal location: right lower quadrant Qualified Code(s): R10.31 - Right lower quadrant pain (2) Intractable nausea and vomiting Status: Resolved Current Visit: No (3) Coffee ground emesis Status: Acute Current Visit: Yes (4) Partial seizure Status: Acute Current Visit: Yes Hospitalist: Subjective Interval history: Mrs. Desai has an undefined hypercoagulable state requiring anticoagulation with Eliquis. The patient has peripheral vascular disease and chronic abdominal ischemia. The patient came to hospital with abdominal pain and retching of blood containing gastric contents. Eliquis was held and the patient was treated for pain. The patient had a spell of unresponsiveness and absence. The patient was transferred to the critical care area. Dr. Renetta Brewster evaluated the patient yesterday and felt it was possible that she did have seizure and started her on Keppra. The patient is now awake and alert and complaining of abdominal pain. Exam - Constitutional Vitals: Period Temp Pulse Resp BP Sys/Chavarria Pulse Ox Last 24 Hr 97 F-98.9 F 79-100 11-23 116-228/58-109 96-100 General appearance: mild distress - Respiratory Respiratory exam: Present: clear to auscultation bilaterally - Cardiovascular Cardiovascular exam: Present: regular rate and rhythm - GI/Abdominal GI/Abdominal exam: Present: hypoactive bowel sounds Results - Labs CBC & BMP: 01/23/17 04:14 01/23/17 04:14 Lab Results: I have reviewed the past 24 hour labs
[2017-01-23] MEDS: POTASSIUM CHLORIDE 20 MEQ TABLET PO PRN (10:37)
--- NOTE | 2017-01-23 12:48 | Gastrointestinal Progress Note ---
<ZofiaMelba Lilia - Last Filed: 01/23/17 12:46> Assessment and Plan (1) Abdominal pain Status: Acute Assessment and plan: 01/23-no complaints of pain or nausea at this time. No overt bleeding. Events noted as below. Start full liquids and continue to monitor. Hold off on gastric emptying scan at this time. Plan an addendum to followed by Dr. Guthrie. 01/22-no complaints of abdominal pain, nausea vomiting. H&H is stable at 01/31 with no overt bleeding. Tolerating small amounts of clear liquids. Plan an addendum to followed by Dr. Guthrie. Current Visit: Yes Gastroenterology - PN: Subj Interval history: CC: Nausea, abdominal pain Patient is seen, after being transferred to ICU on yesterday with seizure-like activity. She has been initiated on Keppra for this. She is also noted to be on a Cardene infusion due to her hypertension. She was scheduled for a gastric emptying scan this morning however this had to be canceled at this time. Patient has remained n.p.o. however will start back to clear liquids to see how she tolerates. We will hold off on gastric emptying scan at this time until patient stabilizes. Abdomen is soft, nontender. ROS: Denies shortness of breath or chest pain Exam (Progress Note) - Constitutional Vitals: Period Temp Pulse Resp BP Sys/Chavarria Pulse Ox Last 24 Hr 97 F-98.9 F 79-100 11-23 116-228/58-109 96-100 General appearance: normal weight, no acute distress - Head Head exam: Present: normal inspection, normocephalic - Eye Eye exam: Present: other (Lids and conjunctive are unremarkable). Absent: scleral icterus - ENT ENT exam: Present: normal exam, normal oropharynx - Neck Neck exam: Present: normal inspection - Respiratory Respiratory exam: Present: clear to auscultation bilaterally. Absent: rales, rhonchi, wheezes - Cardiovascular Cardiovascular exam: Present: regular rate and rhythm. Absent: diastolic murmur , JVD, systolic murmur - GI/Abdominal GI/Abdominal exam: Present: normal bowel sounds, soft. Absent: ascites, distended, mass, organomegaly, tenderness - Extremities Exam Extremities exam: Present: normal inspection, full ROM - Back Exam Back exam: Present: normal inspection - Neurological Exam Neurological exam: Present: alert, oriented X3 - Psychiatric Psychiatric exam: Present: normal affect, normal mood - Skin Skin exam: Present: normal color, warm, dry Results - Labs CBC & BMP: 01/23/17 04:14 01/23/17 04:14 Lab Results: I have reviewed the past 24 hour labs <Freddie Guthrie - Last Filed: 01/23/17 22:16> Assessment and Plan (1) Coffee ground emesis Status: Acute Current Visit: Yes (2) Abdominal pain Status: Acute Current Visit: Yes Exam (Progress Note) - Constitutional Vitals: Period Temp Pulse Resp BP Sys/Chavarria Pulse Ox Last 24 Hr 97.2 F-98.9 F 83-101 11-23 126-180/63-104 96-100 Results - Labs CBC & BMP: 01/23/17 04:14 01/23/17 04:14
--- NOTE | 2017-01-23 17:03 | Neurology Progress Note ---
Neurology - PN : Subjective Interval history: Ms. Duggan seems to be doing better. No new problems reported. Feeling better. MRI is still pending. EEG looks okay. Exam (Progress Note) - Constitutional Vitals: Period Temp Pulse Resp BP Sys/Chavarria Pulse Ox Last 24 Hr 97.2 F-98.9 F 83-100 11-23 116-204/58-104 96-100 Exam: GENERAL: Patient is in no acute distress. NECK: Neck is supple. There is no JVD. No carotid bruits present. No thyroid masses. CVS: First and second heart sounds are normal. There is no S3 present. Regular rate and rhythm. RESPIRATORY: Lungs are clear to auscultation without any rales or rhonchi. ABDOMEN: Soft and non-tender. Bowel sounds are present. There is no hepatosplenomegaly. EXT: There is no palpable edema. Peripheral pulses are present. Skin: No rashes Central Nervous system: General: Alert, awake and Oriented x 3 Speech: Fluent Comprehension: Fair Facial expressions: Normal Cranial Nerves: CN1/Olfactory: Normal CN II/ Optic: Normal, Visual Morales unreliable CN III, and : ANTIONETTE & EOMI CN V: Normal & intact CN VII: face is symmetric CNVIII: Normal CN XI/X/XI/XII: Intact and Normal Motor: Bulk and Tone is normal. Strength in the right 3-4/5 Strength in the left 3-4/5 Sensory: Grossly intact for all the modalities of PP, LT and temp sense Reflexes: 1+ and symmetrical Cerebellar function: Normal finger to nose testing. Toes: Equivocal Gait: Not tested Results - Labs CBC & BMP: 01/23/17 04:14 01/23/17 04:14 Assessment and Plan (1) Partial seizure Status: Acute Assessment and plan: Continue Keppra at the same dose Current Visit: Yes (2) History of CVA (cerebrovascular accident) Status: Chronic Assessment and plan: Continue Eliquis for now We will do MRI when she is able to Current Visit: No
[2017-01-23] MEDS: hydrALAZINE 20 MG/1 ML VIAL IV PRN (18:21)
[2017-01-24 04:04] LABS: Basophils # 0.1 10*3/uL (0.0-0.2); Basophils % 0.6 % (0.0-0.8); Eosinophils # 0.2 10*3/uL (0.0-0.87); Eosinophils % 1.8 % (0.00-10.9); Hematocrit 26.8 VOL% (35.7-47.0); Hemoglobin 8.8 GM/DL (12.0-16.0); Immature Granulocytes % 0.3 %; Immature Granulocytes Absolute 0.03 #; Lymphocytes # 2.3 10*3/uL (1.4-4.0); Lymphocytes % 25.2 % (21.3-54.2); Mean Corpuscular HGB Conc 32.8 GM/DL (32-36); Mean Corpuscular Hemoglobin 29 PG (27-34); Mean Corpuscular Volume 89.3 FL (87-102); Mean Platelet Volume 9.2 FL (9.6-12.0); Monocytes # 0.8 10*3/uL (0.11-0.8); Monocytes % 9.1 % (1.7-12.7); Neutrophils # 5.7 10*3/uL (1.4-7.4); Platelet Count 351 T/CUMM (130-400); Red Cell Distribution Width 15.4 % (9.3-17.3)
[2017-01-24] MEDS: SODIUM CHLORIDE 0.9% 1,000 ML IV SCH ×3 (04:29→19:32)
[2017-01-24] MEDS: MORPHINE 2 MG/1 ML SYRINGE IV PRN ×3 (04:31→16:49)
[2017-01-24] MEDS: ONDANSETRON 4 MG/2 ML VIAL IV PRN (04:32)
[2017-01-24 04:34] LABS: Calcium 8.3 MG/DL (8.5-10.1); Magnesium 1.8 MG/DL (1.8-2.4); Osmolality,Calculated 276.5 MOS/KG (273-304); Potassium 3.5 MMOL/L (3.5-5.1)
[2017-01-24] MEDS: POTASSIUM CHLORIDE 20 MEQ TABLET PO PRN ×2 (04:46→06:57)
[2017-01-24] MEDS: hydrALAZINE 20 MG/1 ML VIAL IV PRN ×2 (05:40→12:42)
[2017-01-24] MEDS: niCARdipine INJ 25 MG in SODIUM CHLORIDE 0.9% 240 ML IV SCH ×2 (06:20→16:50)
[2017-01-24] MEDS: LISINOPRIL 20 MG TABLET PO SCH (08:17)
[2017-01-24] MEDS: DOCUSATE SODIUM 100 MG CAPSULE PO SCH ×2 (08:17→21:45)
[2017-01-24] MEDS: PANTOPRAZOLE 40 MG VIAL IV SCH ×2 (08:18→21:45)
[2017-01-24] MEDS: BISACODYL 5 MG TABLET PO SCH (08:18)
[2017-01-24] MEDS: APIXABAN 5 MG TABLET PO SCH ×2 (08:18→21:45)
[2017-01-24] MEDS: levETIRAcetam 500 MG TABLET PO SCH ×2 (08:21→21:44)
[2017-01-24] MEDS: CARVEDILOL 25 MG TABLET PO SCH ×2 (08:21→21:45)
[2017-01-24] MEDS ORDERED: NIFEdipine 10 MG CAPSULE PO PRN (10:41)
--- NOTE | 2017-01-24 10:41 | Hospitalist Progress Note ---
Assessment and Plan (1) Abdominal pain Status: Resolved Assessment and plan: The patient will continue on pain medication for her abdominal pain. The patient's GI consultation will be continued. We will continue the patient on Keppra for possible absence. We will continue observation in the critical care area and attempt to obtain MRI scan. I am going to add additional oral blood pressure medication. Current Visit: No Qualifiers: Abdominal location: right lower quadrant Qualified Code(s): R10.31 - Right lower quadrant pain (2) Intractable nausea and vomiting Status: Resolved Current Visit: No (3) Coffee ground emesis Status: Acute Current Visit: Yes (4) Partial seizure Status: Acute Current Visit: Yes Hospitalist: Subjective Interval history: The patient's abdominal pain has better controlled today. The patient does not complain of shortness of breath or palpitations. The patient is to have MRI scan today. There have been no new absence spells. Exam - Constitutional Vitals: Period Temp Pulse Resp BP Sys/Chavarria Pulse Ox Last 24 Hr 96.8 F-99.0 F 84-101 11-22 130-196/63-100 96-100 - Respiratory Respiratory exam: Present: clear to auscultation bilaterally - Cardiovascular Cardiovascular exam: Present: regular rate and rhythm - GI/Abdominal GI/Abdominal exam: Present: hypoactive bowel sounds - Extremities Exam Extremities exam: Present: other (There is a large open wound in the incision about the left knee arterial bypass.) Results - Labs CBC & BMP: 01/24/17 03:44 01/24/17 03:44 Lab Results: I have reviewed the past 24 hour labs
[2017-01-24] MEDS ORDERED: cloNIDine 0.3 MG/24 HR PATCH TRANSDERM SCH (11:30)
--- NOTE | 2017-01-24 11:30 | Vascular Surgery Consult Note ---
History of Present Illness Chief complaint: pvd History of present illness: Ms. Desai is a 41 year old female Tamiko Desai is a 41-year-old woman that I have been treating since approximately September of this year. She has an extensive vascular history approximately 2014 she had occlusion of her right common and internal carotid arteries with a significant stroke she has no significant disease of the left internal carotid artery or common. She actually had evidence of a right iliac occlusion in 2015 but did not return for further treatment or evaluation until September of this year when she saw Dr. Butts for nonhealing left fifth toe that she had hit on the couch and broken. This toe is been amputated but had not healed well November and December of this year Dr. Hipolito Garcia and did thrombolyzes angioplasty of the internal iliac arteries. 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 There is also often associated with 6 severe hypertension. She has had multiple admissions and has had at least 6 CT scans of the abdomen and pelvis or CT angiograms of the abdomen and pelvis since September of this year none have shown any conclusive findings to give us an reason for her recurring pain. I do note that in reviewing the CT that was done this admission and wants previous is that the area of thrombus in the left and the SMA is actually less well-defined and and more open than previously. There is nothing that has brought us to believe that her symptoms are is intestinal ischemia. At this point time she continued to have a significant problem with depression severe hypertension diabetes and peripheral vascular disease. I do not see anything that is likely to improve her overall situation unless better treatment of her depression would provide some benefit She had developed a moderate hematoma of her left popliteal incision that had become superficially infected this is being treated open and is actually healing and granulating in and I do not see any evidence of ongoing infection there Home Medications Medication Instructions Recorded Confirmed Type Atorvastatin [Lipitor] 20 mg PO BEDTIME #30 tablet 07/29/15 01/19/17 Rx glyBURIDE [Diabeta] 5 mg PO BID W/MEALS #60 tablet 07/29/15 01/19/17 Rx Nicotine 21 mg/24 Hr Patch 1 patch TRANSDERM DAILY #30 patch 12/01/16 01/19/17 Rx [Nicoderm CQ 21 mg/24 hr Patch] Carvedilol [Coreg] 25 mg PO BID #60 tablet 12/08/16 01/19/17 Rx Apixaban [Eliquis] 5 mg PO BID #60 tablet 12/22/16 01/19/17 Rx Alum/Mag/Simeth Max Str Liquid 30 ml PO Q6H PRN 12/26/16 01/19/17 Rx [Mylanta Max Strength Liquid] Metoclopramide Tab [Reglan Tab] 10 mg PO ACHS tablet 12/26/16 01/19/17 Rx metFORMIN [Glucophage] 500 mg PO DAILY W/BREAKFAST tablet 12/26/16 01/19/17 Rx Aspirin EC Tab 81 mg PO QAM 01/09/17 01/19/17 History Docusate Sodium Cap [Colace Cap] 100 mg PO BID PRN 01/09/17 01/19/17 History FLUoxetine [PROzac] 20 mg PO QAM 01/09/17 01/19/17 History Lisinopril [Prinivil] 40 mg PO QAM 01/19/17 01/19/17 History oxyCODONE/ACETAMINOPHEN 5-325 1 tablet PO Q6H PRN 01/19/17 01/19/17 History [Percocet 5-325] Allergies Allergy/AdvReac Type Severity Reaction Status Date / Time No Known Allergies Allergy Verified 01/19/17 12:56 Medical,Surgical,& Family Hx - Medical History Cardio: History of: Hypertension, PVD (VASCULAR STENTS 2017 TO LEFT LEG), Cardiovascular Problems (Left apical thrombus) Neurology: History of: Cerebrovascular Accident (2016- right side deficit), Peripheral Neuropathy No history of: Seizures HEENT: History of: Eye Problem (GLASSES) Endocrine: History of: Diabetes Mellitus (NIDDM) (since 1996, states didn't take insulin only pills at home), Dyslipidemia Respiratory: No history of: Respiratory Problems Genitourinary: History of: Recurring Urinary Tract Infections Gastrointestinal: History of: GERD (Since 2006), Pancreatitis (2006) Musculoskeletal: History of: Amputation (5th toe on left foot), Back/Neck Problems, Musculoskeletal Problems (ARTHRITIS.) Hematology: History of: Clotting Problems (Blood clots in legs & heart- december 2016) Reproductive: History of: Abnormal Pap Smear (2011) Other: History of: MRSA (Left foot), Miscellaneous Medical Problems (DVT 12/2016) - Surgical History Cardiac Surgeries: Patient Denies: Femoral-Popliteal Bypass Graft, Cardiac Catheterization, Cardiac Surgery, Carotid Endarterectomy, Internal Defibrillator, Vascular Access Devices Thoracic Surgeries: Patient denies;: Kidney (Renal Surgery), Lithotripsy, Nephrectomy, Organ Transplant, Lobectomy Neurologic Surgeries: Patient denies: Neurologic Surgery HEENT Surgeries: Patient denies: Carotid Endarterectomy, Eye Surgery, Thyroid Surgery, Tonsilectomy & Adenoidectomy Abdominal Surgeries: Surgical HX of: Abdominal Surgery, Cholecystectomy (2012), Colonoscopy Patient denies: Splenectomy Reproductive Surgeries: Patient denies;: Breast Surgery, Section, Cystoscopy, Dilation and Curettage, Genitourinary Surgery, Gynecologic Surgery, Hysterectomy, Tubal Ligation Orthopedic Surgeries: Patient denies;: Implanted Devices, Orthopedic Surgery, Spinal Surgery, Total Hip Replacement, Total Knee Replacement - Family History Family History: Reports;: Family Cancer (uncle-colon, aunt-breast, aunt-leukemia ), Family Diabetes (Father), Family Heart Disease (Mother- [place]), Family Hypertension (Mother), Family Stroke (Mother) Denies;: Family Anesthesia Reaction, Family Psychiatric Problems - Social History Smoking Status: Current every day smoker Frequency of Alcohol Use: None Type of Drug Use: None Exam - Constitutional Vitals: Period Temp Pulse Resp BP Sys/Chavarria Pulse Ox Last 24 Hr 96.8 F-99.0 F 84-101 11- 130-196/63-100 96-100 Results - Labs CBC & BMP: 01/24/17 03:44 01/24/17 03:44
--- NOTE | 2017-01-24 12:19 | Gastrointestinal Progress Note ---
<YuryramakrishnaMelba Lilia - Last Filed: 01/24/17 12:17> Assessment and Plan (1) Abdominal pain Status: Acute Assessment and plan: 01/24-abdominal pain improved with some continued nausea. Minimal to no oral intake at this time. For MRI of the brain this morning. Plan an addendum to followed by Dr. Guthrie. 01/23-no complaints of pain or nausea at this time. No overt bleeding. Events noted as below. Start full liquids and continue to monitor. Hold off on gastric emptying scan at this time. Plan an addendum to followed by Dr. Guthrie. 01/22-no complaints of abdominal pain, nausea vomiting. H&H is stable at 01/31 with no overt bleeding. Tolerating small amounts of clear liquids. Plan an addendum to followed by Dr. Guthrie. Current Visit: Yes Gastroenterology - PN: Subj Interval history: CC: Nausea, abdominal pain Patient is seen, lying in bed awake and alert. Patient continues with very flat affect. She has had very minimal oral intake and has no appetite with no desire to eat. She has some reports of continued nausea but no known reports of pain at this time. Abdomen is soft, nontender. She is continued on Keppra at this time. She is noted to have an MRI of the head pending for today. ROS: Denies shortness of breath or chest pain Exam (Progress Note) - Constitutional Vitals: Period Temp Pulse Resp BP Sys/Chavarria Pulse Ox Last 24 Hr 96.8 F-99.0 F 79-101 12-22 130-196/63-100 96-100 General appearance: normal weight, no acute distress - Head Head exam: Present: normal inspection, normocephalic - Eye Eye exam: Present: other (Lids and conjunctivae are unremarkable). Absent: scleral icterus - ENT ENT exam: Present: normal exam, normal oropharynx - Neck Neck exam: Present: normal inspection - Respiratory Respiratory exam: Present: clear to auscultation bilaterally. Absent: rales, rhonchi, wheezes - Cardiovascular Cardiovascular exam: Present: regular rate and rhythm. Absent: diastolic murmur , JVD, systolic murmur - GI/Abdominal GI/Abdominal exam: Present: normal bowel sounds, soft. Absent: ascites, distended, mass, organomegaly, tenderness - Extremities Exam Extremities exam: Present: normal inspection, full ROM - Back Exam Back exam: Present: normal inspection - Neurological Exam Neurological exam: Present: alert, oriented X3 - Psychiatric Psychiatric exam: Present: normal affect, normal mood - Skin Skin exam: Present: normal color, warm, dry Results - Labs CBC & BMP: 01/24/17 03:44 01/24/17 03:44 Lab Results: I have reviewed the past 24 hour labs <Freddie Guthrie - Last Filed: 01/24/17 22:01> Assessment and Plan (1) Coffee ground emesis Status: Acute Current Visit: Yes (2) Abdominal pain Status: Acute Current Visit: Yes Exam (Progress Note) - Constitutional Vitals: Period Temp Pulse Resp BP Sys/Chavarria Pulse Ox Last 24 Hr 96.8 F-99.0 F 79-104 12-22 99-196/60-100 96-100 Results - Labs CBC & BMP: 01/24/17 03:44 01/24/17 03:44
--- NOTE | 2017-01-24 16:53 | Magnetic Resonance Report ---
MRI of the brain without contrast. Indication: CVA. Neurologic changes. Strokes. Sagittal T1, axial diffusion, axial T2, axial flair, axial T1, axial gradient echo, coronal T2 and axial ADC images were performed. Comparison: July 26, 2015. The appearance of the craniovertebral junction is within normal limits. The pituitary gland is normal in size. The previously seen left cerebellar infarct is not visible on today's study. The diffusion images demonstrate no evidence of acute infarct. Within the right occipital lobe, there is a large area of signal abnormality, with encephalomalacia and scoliosis. Centrally, there is hemosiderin present, consistent with a previous hemorrhagic conversion of this infarct. It also involves portions of the lower right parietal lobe. Within the right frontal white matter, there is a small remote lacunar infarct, which was seen on the previous exam. There is a lesion noted adjacent to the right lateral ventricle, which was not present previously which measures about 8 mm. On the left, there are multiple small foci of white matter signal abnormality consistent with small lacunar infarcts which were not present on the July exam. There is a left temporoparietal cortical infarct, which has increased in size since the previous study. There is a small remote left parieto-occipital cortical infarct, which is more prominent than seen on the previous study. There is no midline shift. There is no evidence of acute hemorrhage. The venous sinuses are patent. Normal signal voids are seen within the anterior and posterior circulations. Mucosal thickening is present within the paranasal sinuses. Impression: Although the diffusion images demonstrate no evidence of acute infarction, there has been progression of cortical and white matter ischemic change when compared to the July 2015 exam. There is bilateral involvement, and the old infarct in the right occipital lobe as evidence of previous hemorrhagic conversion. PROCEDURE INTERPRETED AT [facility] DEPARTMENT OF RADIOLOGY Final Report Signed by: Dr. Imani Collado
[2017-01-25] MEDS: MORPHINE 2 MG/1 ML SYRINGE IV PRN ×5 (00:16→21:30)
[2017-01-25] MEDS: SODIUM CHLORIDE 0.9% 1,000 ML IV SCH ×4 (03:55→21:33)
[2017-01-25] MEDS: LISINOPRIL 20 MG TABLET PO SCH (09:20)
[2017-01-25] MEDS: DOCUSATE SODIUM 100 MG CAPSULE PO SCH ×2 (09:20→21:31)
[2017-01-25] MEDS: levETIRAcetam 500 MG TABLET PO SCH ×2 (09:20→21:31)
[2017-01-25] MEDS: PANTOPRAZOLE 40 MG VIAL IV SCH ×2 (09:20→21:31)
[2017-01-25] MEDS: APIXABAN 5 MG TABLET PO SCH ×2 (09:20→21:31)
[2017-01-25] MEDS: CARVEDILOL 25 MG TABLET PO SCH ×2 (09:20→21:39)
[2017-01-25] MEDS: ONDANSETRON 4 MG/2 ML VIAL IV PRN ×2 (11:01→17:38)
--- NOTE | 2017-01-25 11:22 | Gastrointestinal Progress Note ---
<YuryramakrishnaMelba Lilia - Last Filed: 01/25/17 11:20> Assessment and Plan (1) Abdominal pain Status: Acute Assessment and plan: 01/25-no complaints of abdominal pain. Mild nausea without vomiting. Advance to soft diet and continue to encourage oral intake. Plan an addendum to followed by Dr. Guthrie. 01/24-abdominal pain improved with some continued nausea. Minimal to no oral intake at this time. For MRI of the brain this morning. Plan an addendum to followed by Dr. Guthrie. 01/23-no complaints of pain or nausea at this time. No overt bleeding. Events noted as below. Start full liquids and continue to monitor. Hold off on gastric emptying scan at this time. Plan an addendum to followed by Dr. Guthrie. 01/22-no complaints of abdominal pain, nausea vomiting. H&H is stable at 01/31 with no overt bleeding. Tolerating small amounts of clear liquids. Plan an addendum to followed by Dr. Guthrie. Current Visit: Yes Gastroenterology - PN: Subj Interval history: CC: Abdominal pain Patient is seen awake alert lying in bed. She has a continued flat affect however she does not have any complaints of this morning other than some mild nausea. Denies any episodes of vomiting. Denies any abdominal pain. She is tolerating a little bit of her full liquid diet. She does say she does not have an appetite. Abdomen soft, nontender. MRI findings and yesterday noted show no evidence of acute infarction however progression of ischemic changes compared to her last MRI in July 2015. ROS: Denies shortness breath or chest pain Exam (Progress Note) - Constitutional Vitals: Period Temp Pulse Resp BP Sys/Chavarria Pulse Ox Last 24 Hr 96.9 F-98.5 F 80-104 - 99-180/60-90 97-100 General appearance: normal weight, no acute distress - Head Head exam: Present: normal inspection, normocephalic - Eye Eye exam: Present: other (Lids and conjunctive are unremarkable). Absent: scleral icterus - ENT ENT exam: Present: normal exam, normal oropharynx - Neck Neck exam: Present: normal inspection - Respiratory Respiratory exam: Present: clear to auscultation bilaterally. Absent: rales, rhonchi, wheezes - Cardiovascular Cardiovascular exam: Present: regular rate and rhythm. Absent: diastolic murmur , JVD, systolic murmur - GI/Abdominal GI/Abdominal exam: Present: normal bowel sounds, soft. Absent: ascites, distended, mass, organomegaly, tenderness - Extremities Exam Extremities exam: Present: normal inspection, full ROM - Back Exam Back exam: Present: normal inspection - Neurological Exam Neurological exam: Present: alert, oriented X3 - Psychiatric Psychiatric exam: Present: flat affect - Skin Skin exam: Present: normal color, warm, dry Results - Labs CBC & BMP: 01/24/17 03:44 01/24/17 03:44 Lab Results: I have reviewed the past 24 hour labs <Freddie Guthrie - Last Filed: 01/25/17 21:07> Assessment and Plan (1) Coffee ground emesis Status: Acute Current Visit: Yes (2) Abdominal pain Status: Acute Current Visit: Yes Exam (Progress Note) - Constitutional Vitals: Period Temp Pulse Resp BP Sys/Chavarria Pulse Ox Last 24 Hr 97.3 F-99.5 F 87-99 10-22 114-177/70-90 96-100 Results - Labs CBC & BMP: 01/24/17 03:44 01/24/17 03:44
--- NOTE | 2017-01-25 13:19 | Hospitalist Progress Note ---
Assessment and Plan (1) Abdominal pain Status: Resolved Assessment and plan: The patient will continue on pain medication for her abdominal pain. The patient's blood pressure has increased and I am adding Catapres patch. The patient is ready for transfer to the floor with cardiac monitoring. MRI scan of brain did not reveal any acute lesions. Current Visit: No Qualifiers: Abdominal location: right lower quadrant Qualified Code(s): R10.31 - Right lower quadrant pain (2) Intractable nausea and vomiting Status: Resolved Current Visit: No (3) Coffee ground emesis Status: Acute Current Visit: Yes (4) Partial seizure Status: Acute Current Visit: Yes Hospitalist: Subjective Interval history: The patient has less complaint of abdominal pain today. She is awake and alert. The patient states that she eats and has postprandial abdominal pain. Exam - Constitutional Vitals: Period Temp Pulse Resp BP Sys/Chavarria Pulse Ox Last 24 Hr 97.1 F-98.5 F 80-104 10-21 99-177/60-90 97-100 General appearance: mild distress - Head Head exam: Present: normocephalic - Respiratory Respiratory exam: Present: clear to auscultation bilaterally - Cardiovascular Cardiovascular exam: Present: regular rate and rhythm Results - Labs CBC & BMP: 01/24/17 03:44 01/24/17 03:44 Lab Results: I have reviewed the past 24 hour labs
[2017-01-25] MEDS: PROMETHAZINE 25 MG/1 ML VIAL IM PRN (13:38)
--- NOTE | 2017-01-25 14:35 | Neurology Progress Note ---
Neurology - PN : Subjective Interval history: Patient seems to be doing much better. Complaining of some abdominal and left leg pain. No more seizure-like activity or confusion reported. Exam (Progress Note) - Constitutional Vitals: Period Temp Pulse Resp BP Sys/Chavarria Pulse Ox Last 24 Hr 97.1 F-98.5 F 82-104 10-21 110-177/60-90 97-100 Exam: GENERAL: Patient is in no acute distress. NECK: Neck is supple. There is no JVD. No carotid bruits present. No thyroid masses. CVS: First and second heart sounds are normal. There is no S3 present. Regular rate and rhythm. RESPIRATORY: Lungs are clear to auscultation without any rales or rhonchi. ABDOMEN: Soft and non-tender. Bowel sounds are present. There is no hepatosplenomegaly. EXT: There is no palpable edema. Peripheral pulses are present. Skin: No rashes Central Nervous system: General: Alert, awake and Oriented x 3 Speech: Fluent Comprehension: Fair Facial expressions: Normal Cranial Nerves: CN1/Olfactory: Normal CN II/ Optic: Normal, Visual Morales unreliable CN III, and : ANTIONETTE & EOMI CN V: Normal & intact CN VII: face is symmetric CNVIII: Normal CN XI/X/XI/XII: Intact and Normal Motor: Bulk and Tone is normal. Strength in the right 3-4/5 Strength in the left 3-4/5 Sensory: Grossly intact for all the modalities of PP, LT and temp sense Reflexes: 1+ and symmetrical Cerebellar function: Normal finger to nose testing. Toes: Equivocal Gait: Not tested Results - Labs CBC & BMP: 01/24/17 03:44 01/24/17 03:44 Assessment and Plan (1) Partial seizure Status: Acute Assessment and plan: Continue Keppra 500 mg p.o. twice daily Current Visit: Yes (2) History of CVA (cerebrovascular accident) Status: Chronic Assessment and plan: Continue Eliquis for now No further intervention/recommendations from neuro standpoint at this time Current Visit: No
[2017-01-25] MEDS: niCARdipine INJ 25 MG in SODIUM CHLORIDE 0.9% 240 ML IV SCH (17:35)
[2017-01-26] MEDS: MORPHINE 2 MG/1 ML SYRINGE IV PRN ×3 (01:31→13:42)
[2017-01-26] MEDS: SODIUM CHLORIDE 0.9% 1,000 ML IV SCH ×2 (06:01→14:38)
--- NOTE | 2017-01-26 08:56 | Neurology Progress Note ---
Neurology - PN : Subjective Interval history: Patient is quite stable neurologically. No more seizure-like activity reported. Tolerating medicines well. Exam (Progress Note) - Constitutional Vitals: Period Temp Pulse Resp BP Sys/Chavarria Pulse Ox Last 24 Hr 97.3 F-100.1 F 87-99 10- 114-172/71-90 95-100 Exam: GENERAL: Patient is in no acute distress. NECK: Neck is supple. There is no JVD. No carotid bruits present. No thyroid masses. CVS: First and second heart sounds are normal. There is no S3 present. Regular rate and rhythm. RESPIRATORY: Lungs are clear to auscultation without any rales or rhonchi. ABDOMEN: Soft and non-tender. Bowel sounds are present. There is no hepatosplenomegaly. EXT: There is no palpable edema. Peripheral pulses are present. Skin: No rashes Central Nervous system: General: Alert, awake and Oriented x 3 Speech: Fluent Comprehension: Fair Facial expressions: Normal Cranial Nerves: CN1/Olfactory: Normal CN II/ Optic: Normal, Visual Morales unreliable CN III, and : ANTIONETTE & EOMI CN V: Normal & intact CN VII: face is symmetric CNVIII: Normal CN XI/X/XI/XII: Intact and Normal Motor: Bulk and Tone is normal. Strength in the right 3-4/5 Strength in the left 3-4/5 Sensory: Grossly intact for all the modalities of PP, LT and temp sense Reflexes: 1+ and symmetrical Cerebellar function: Normal finger to nose testing. Toes: Equivocal Gait: Not tested due to leg surgery Results - Labs CBC & BMP: 01/24/17 03:44 01/24/17 03:44 Assessment and Plan (1) Partial seizure Status: Acute Assessment and plan: Continue Keppra 500 mg p.o. twice daily No further recommendations from neuro standpoint Current Visit: Yes (2) History of CVA (cerebrovascular accident) Status: Chronic Assessment and plan: Continue Eliquis for now Sign off please call as needed Current Visit: No
[2017-01-26] MEDS: PANTOPRAZOLE 40 MG VIAL IV SCH (09:30)
[2017-01-26] MEDS: DOCUSATE SODIUM 100 MG CAPSULE PO SCH (09:33)
[2017-01-26] MEDS: LISINOPRIL 20 MG TABLET PO SCH (09:33)
[2017-01-26] MEDS: levETIRAcetam 500 MG TABLET PO SCH (09:33)
[2017-01-26] MEDS: APIXABAN 5 MG TABLET PO SCH (09:33)
[2017-01-26] MEDS: CARVEDILOL 25 MG TABLET PO SCH (09:33)
[2017-01-26] MEDS: ONDANSETRON 4 MG/2 ML VIAL IV PRN (12:13)
--- NOTE | 2017-01-26 13:18 | Physician Query Form ---
CLICK EDIT DOCUMENT TO SELECT QUERY ANSWER --> OK --> SIGN Lisy Lerma RN, CCDS Certified Clinical Auto Claim Representative W) [phone] (f) [phone] [email or web address] PROVIDERS: Make your selection(s) from the choices in EACH section by typing an "x" and enter comments in the comment section. Please use your independent medical judgment in providing your response. This request does not imply that any particular answer is desired or expected. CLINICAL INDICATORS: (Providers should not edit this section) The medical record indicates that the patient was admitted with abd pain, on the : "found staring off into space and was unresponsive", "A CT of the head revealed old right occipital and left parietal lobe infarct", "certainly is at risk of seizures", on the : "Partial seizure" and the patient is on Keppra. Based on the above, could you clarify the appropriate diagnosis, if significant , that supports the above abnormalities and additional evaluation, monitoring, and/or treatment rendered: ( X) Seizures are thought to be late effects of CVA ( ) Seizures are not thought to be later effects of CVA ( ) Encephalopathy due to ( ) Other, please specify: ( ) Clinically unable to determine COMMENTS: PLEASE ALSO DOCUMENT RESPONSE IN PROGRESS NOTES AND/OR DISCHARGE SUMMARY Use of terms such as suspected, likely, or probable (associated with a specific diagnosis that is being evaluated, monitored, or treated as if it exists) are acceptable and can be restated in the discharge summary if not ruled out. MTDD
--- NOTE | 2017-01-26 15:13 | Discharge Summary ---
Hospital Course - Hospital Course Hospital Course: 41 year old black female w/PMHx of DM, HTN, severe peripheral vascular disease, active smoker, GI bleed presented to the ED via EMS for further evaluation of abdominal pain, nausea and vomiting. She was recently discharged 01/15/17 after completed workup. EGD performed showed gastritis and was started on pantoprazole and metoclopramide. IN ED: H&H stable 10.7 & 31.7, Electrolytes stable, Creatinine 1.10, Glucose 249, alkaline phos 131. Lipase 473.0. Urinalysis: Negative leukocyte negative nitrite. 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 Chest x-ray: Negative chest. Abdominal x-ray: Normal bowel gas pattern. Hospital medicine was consulted for admission and further observation of abdominal pain, nausea, vomiting. Patient reports 6-7 cigarettes per day, denies alcohol or drug abuse. Patient was admitted to the hospital service. GI and general surgery were consulted. Patient was being followed by Dr. Reyes and Dr. Guthrie. GI felt that she had had extensive evaluation for this chronic intermittent abdominal pain and most of it was functional in nature. Her coffee -ground emesis was felt to be due to retching and anticoagulation without any overt GI bleed at this time recommendation was to continue PPI and monitor hemoglobin and hematocrit. Dr. Reyes order CT angiogram of the abdomen pelvis with did show an irregular area that looked like plaque the superior mesenteric artery but it was not a thrombus or embolus and it was not because of either. Dr Gibson from vascular surgery was consulted. Dr. Gibson has extensively evaluated this patient in the past. She had chronic hypercoagulable state and Eliquis was continued. Patient will distending spell while in the hospital and neurology Dr. Watkins was consulted and he felt that he likely has partial seizures seizures and started on Keppra 5 mg twice daily. MRI brain showed evidence of old stroke but no new stroke. She tolerated Keppra quite well without any further staring episodes. Her diet was gradually advanced. Her abdominal pain is much better. He has reached maximum hospital benefit and the qm consultant has signed off. She is being discharged home in improved and stable condition. Total discharge time 42 minutes. - Time spent with patient Time with patient DS: Greater than 30 minutes Diagnosis - Discharge Diagnosis (1) Upper GI bleed Status: Resolved Discharge Plan - Discharge Data Condition at Discharge: Stable Discharge Diet: advance to your usual diet Activity: resume usual activities as tolerated Hygiene: no restrictions Weight Bearing at Discharge: full weight bearing Driving: no restrictions Contact your physician if you experience:: pain uncontrolled by pain medications - Discharge Medications New cloNIDine TAB [Catapres Tab] 0.3 mg PO BID #60 tablet HYDROcodone/ACETAMIN 7.5-325 [Zalma 7.5-325] 1 tablet PO Q4H PRN #30 tablet PRN Reason: Pain levETIRAcetam TAB [Keppra Tab] 500 mg PO BID #60 tablet Pantoprazole Tab [Protonix Tab] 40 mg PO BID #60 tablet Continue Atorvastatin [Lipitor] 20 mg PO BEDTIME #30 tablet glyBURIDE [Diabeta] 5 mg PO BID W/MEALS #60 tablet Nicotine 21 mg/24 Hr Patch [Nicoderm CQ 21 mg/24 hr Patch] 1 patch TRANSDERM DAILY #30 patch Apixaban [Eliquis] 5 mg PO BID #60 tablet metFORMIN [Glucophage] 500 mg PO DAILY W/BREAKFAST tablet Docusate Sodium Cap [Colace Cap] 100 mg PO BID PRN PRN Reason: STOOL SOFTENER Aspirin EC Tab 81 mg PO QAM Carvedilol [Coreg] 25 mg PO BID #60 tablet Alum/Mag/Simeth Max Str Liquid [Mylanta Max Strength Liquid] 30 ml PO Q6H PRN PRN Reason: Dyspepsia Metoclopramide Tab [Reglan Tab] 10 mg PO ACHS tablet FLUoxetine [PROzac] 20 mg PO QAM oxyCODONE/ACETAMINOPHEN 5-325 [Percocet 5-325] 1 tablet PO Q6H PRN PRN Reason: Pain Lisinopril [Prinivil] 40 mg PO QAM - Follow Up or Referral Follow Up: No PCP,. [Primary Care Provider] - 1 Week - Forms/Instructions Exam - Constitutional Vitals: Period Temp Pulse Resp BP Sys/Chavarria Pulse Ox Last 24 Hr 97.3 F-100.1 F 90-97 13-22 137-166/73-84 95-99 Exam: General: [No Acute Distress] HEENT: [Normocephalic, atraumatic, Extra ocular movements intact] Neck: [Supple, No JVD] Chest: [Clear to auscultation B/L] CV: [S1 + S2 audible without murmur, gallop or rub] Abd: [soft, NT, Non-distended, BS +] Ext: [No edema] Skin: [No purpura, bruising or rash] Rheumatologic: [No Joint deformities] Neurologic: [Awake and alert] DS: Provider Date of admission: 01/22/17 15:08 Primary care physician: . No PCP Attending physician on admission: Benson Sommers MD Consults: 01/20/17 11:24 Consult to Physician [CONS] Routine Comment: hematemesis Consulting Provider: Freddie Guthrie When should Consulting Provider be notified: Now Consult Notification Comment: Patient seen by Dr. Guthrie at 1300. 01/22/17 15:28 Consult to Physician [CONS] Routine Comment: Consulting Provider: Nik Watkins Person Notified: Dr. Ortega nurse Date Notified: 01/22/17 Time Notified: 16:07 Discharging clinician: Bipin Bañuelos MD
[2017-01-26 16:00] VITALS: BP 143/79
== END 2017-01-26 18:01 | disposition home or self-care (01) | DRG 251 ==
LOC: EDUNIT# → EDBD → N.ED 12:41 → N.EDINP 12:41 → SUATTDRO 16:52 → N.3E 17:41 → SUATTDRO 01-22 15:08 → N.CC 01-22 15:40 → N.2E 01-25 19:01
PROVIDERS: ADMIT Internal Medicine; ATTEND Internal Medicine Geriatric Medicine

== ENCOUNTER 2017-01-30 16:55 | Inpatient (IN) ==
--- NOTE | 2017-01-30 17:51 | Emergency Department Note ---
Chris Conner Brittany, am scribing for, and in the presence of, Rene Cartagena MD 17:47. Mitzi Conner Phillip K, MD, personally performed the services described in this documentation, ascribed by Elizabeth Perez in my presence, and it is both accurate and complete [id number] . Arrival - Arrival ED Nursing Triage Note: Brought in per EMS from home with c/o pain and edema to incision site left upper leg. Drainage noted, reports had arterial procedure done one month ago and wound has not healed. +subjective fever. Temp max 104. Mode of Arrival: Stretcher Limitations: No Limitations Source: Patient, RN Notes Reviewed <Rene Cartagena - Last Filed: 01/30/17 17:52> <Jeramie Hauser - Last Filed: 01/30/17 20:57> - Arrival Chief Complaint: Extremity Problem Stated Complaint: fever Time Seen by Provider: 01/30/17 17:32 - History of Present Illness HPI Narrative: Patient is a 41 y/o black female presenting to the ED via EMS for further evaluation of left lower thigh swelling and drainage that began today. Patient states that she had an arterial procedure performed a month ago per Dr. Gibson and this area has not healed up. Patient was DC'd from here at [facility] 3 days ago and patient reports during her stay she did not have any drainage from the wound. On exam patient was found to have wound dehiscence of the inner aspect of the left lower thigh with purulent drainage. Patient states that since arrival home the gaping area has grown in size. Patient states that she has not seen Dr. Gibson about this. Denies being on any recent abx therapy. Patient has a PMHx of NIDDM and Peripheral Neuropathy. She is still a current everyday cigarette smoker. Patient has no further complaints. (Elizabeth Perez) Patient is a 41 y/o black female presenting to the ED via EMS for further evaluation of left lower thigh swelling and drainage that began today. Patient states that she had an arterial procedure performed a month ago per Dr. Gibson and this area has not healed up. Patient was DC'd from here at [facility] 3 days ago and patient reports during her stay she did not have any drainage from the wound. On exam patient was found to have wound dehiscence of the inner aspect of the left lower thigh with purulent drainage. Patient states that since arrival home the gaping area has grown in size. Patient states that she has not seen Dr. Gibson about this. Denies being on any recent abx therapy. Patient has a PMHx of NIDDM and Peripheral Neuropathy. She is still a current everyday cigarette smoker. Patient has no further complaints. (Rene Cartagena) Allergies/Adverse Reactions: Allergies Allergy/AdvReac Type Severity Reaction Status Date / Time No Known Allergies Allergy Verified 01/30/17 17:05 Home Medications: Home Medications Medication Instructions Recorded Confirmed Type Atorvastatin [Lipitor] 20 mg PO BEDTIME #30 tablet 07/29/15 01/30/17 Rx glyBURIDE [Diabeta] 5 mg PO BID W/MEALS #60 tablet 07/29/15 01/30/17 Rx Nicotine 21 mg/24 Hr Patch 1 patch TRANSDERM DAILY #30 patch 12/01/16 01/30/17 Rx [Nicoderm CQ 21 mg/24 hr Patch] Carvedilol [Coreg] 25 mg PO BID #60 tablet 12/08/16 01/30/17 Rx Apixaban [Eliquis] 5 mg PO BID #60 tablet 12/22/16 01/30/17 Rx Alum/Mag/Simeth Max Str Liquid 30 ml PO Q6H PRN 12/26/16 01/30/17 Rx [Mylanta Max Strength Liquid] Metoclopramide Tab [Reglan Tab] 10 mg PO ACHS tablet 12/26/16 01/30/17 Rx metFORMIN [Glucophage] 500 mg PO DAILY W/BREAKFAST tablet 12/26/16 01/30/17 Rx Aspirin EC Tab 81 mg PO QAM 01/09/17 01/30/17 History Docusate Sodium Cap [Colace Cap] 100 mg PO BID PRN 01/09/17 01/30/17 History FLUoxetine [PROzac] 20 mg PO QAM 01/09/17 01/30/17 History Lisinopril [Prinivil] 40 mg PO QAM 01/19/17 01/30/17 History HYDROcodone/ACETAMIN 7.5-325 1 tablet PO Q4H PRN #30 tablet 01/26/17 01/30/17 Rx [[place] 7.5-325] Pantoprazole Tab [Protonix Tab] 40 mg PO BID #60 tablet 01/26/17 01/30/17 Rx cloNIDine TAB [Catapres Tab] 0.3 mg PO BID #60 tablet 01/26/17 01/30/17 Rx levETIRAcetam TAB [Keppra Tab] 500 mg PO BID #60 tablet 01/26/17 01/30/17 Rx Review of System - Review of System 12 point system: reviewed and no additional remarkable complaints except as stated - Review of System Constitutional: Absent: chills, fever Head/Ears/Nose/Throat: Absent: nasal drainage Respiratory: Absent: respiratory distress Cardiovascular: Absent: chest pain Gastrointestinal: Absent: abdominal pain, nausea, vomiting Musculoskeletal: Present: other (left lower ex drainage and swelling). Absent: arm pain, back pain, leg pain, neck pain Skin: Absent: rash Neurological: Absent: headache <Rene Cartagena - Last Filed: 01/30/17 17:52> Medical,Surgical,& Family Hx - Medical History Cardio: History of: Hypertension, PVD (VASCULAR STENTS 2017 TO LEFT LEG), Cardiovascular Problems (Left apical thrombus) Neurology: History of: Cerebrovascular Accident (2016- right side deficit), Peripheral Neuropathy No history of: Seizures HEENT: History of: Eye Problem (GLASSES) Endocrine: History of: Diabetes Mellitus (NIDDM) (since 1996, states didn't take insulin only pills at home), Dyslipidemia Respiratory: No history of: Respiratory Problems Genitourinary: History of: Recurring Urinary Tract Infections Gastrointestinal: History of: GERD (Since 2006), Pancreatitis (2006) Musculoskeletal: History of: Amputation (5th toe on left foot), Back/Neck Problems, Musculoskeletal Problems (ARTHRITIS.) Hematology: History of: Clotting Problems (Blood clots in legs & heart- december 2016) Reproductive: History of: Abnormal Pap Smear (2011) Other: History of: MRSA (Left foot), Miscellaneous Medical Problems (DVT 12/2016) - Surgical History Cardiac Surgeries: Patient Denies: Femoral-Popliteal Bypass Graft, Cardiac Catheterization, Cardiac Surgery, Carotid Endarterectomy, Internal Defibrillator, Vascular Access Devices Thoracic Surgeries: Patient denies;: Kidney (Renal Surgery), Lithotripsy, Nephrectomy, Organ Transplant, Lobectomy Neurologic Surgeries: Patient denies: Neurologic Surgery HEENT Surgeries: Patient denies: Carotid Endarterectomy, Eye Surgery, Thyroid Surgery, Tonsilectomy & Adenoidectomy Abdominal Surgeries: Surgical HX of: Abdominal Surgery, Cholecystectomy (2013), Colonoscopy Patient denies: Splenectomy Reproductive Surgeries: Patient denies;: Breast Surgery, Section, Cystoscopy, Dilation and Curettage, Genitourinary Surgery, Gynecologic Surgery, Hysterectomy, Tubal Ligation Orthopedic Surgeries: Patient denies;: Implanted Devices, Orthopedic Surgery, Spinal Surgery, Total Hip Replacement, Total Knee Replacement - Family History Family History: Reports;: Family Cancer (uncle-colon, aunt-breast, aunt-leukemia ), Family Diabetes (Father), Family Heart Disease (Mother- [place]), Family Hypertension (Mother), Family Stroke (Mother) Denies;: Family Anesthesia Reaction, Family Psychiatric Problems - Social History Smoking Status: Current every day smoker Frequency of Alcohol Use: None Type of Drug Use: None <Rene Cartagena - Last Filed: 01/30/17 17:52> Exam - General General appearance: alert, in no apparent distress - Head Head exam: Present: atraumatic, normocephalic, normal inspection - Eye Eye exam: Present: normal appearance, PERRL, EOMI - ENT ENT exam: Present: normal exam, normal oropharynx - Neck Neck exam: Present: normal inspection, full ROM, trachea midline - Chest Chest inspection: Present: normal inspection, symmetric chest wall rise - Respiratory Respiratory exam: Present: normal lung sounds bilaterally. Absent: respiratory distress - Cardiovascular Cardiovascular exam: Present: regular rate, normal rhythm, normal heart sounds. Absent: murmur, rubs, gallop - Abdominal Exam Abdominal exam: Present: soft, normal bowel sounds. Absent: distention, tenderness - Extremities Exam Extremities exam: Absent: normal inspection (wound dehiscence of the inner aspect of the left lower thigh with granulation tissue and some yellow exudate noted.) - Back Exam Back exam: Present: normal inspection - Neurological Exam Neurological exam: Present: alert, oriented X3, CN II-XII intact. Absent: motor sensory deficit - Psychiatric Psychiatric exam: Present: normal affect, normal mood - Skin Skin exam: Present: warm, dry <Rene Cartagena - Last Filed: 01/30/17 17:52> Vital Signs: Vital Signs Temperature 97.6 F 01/30/17 17:00 Pulse Rate 92 H 01/30/17 18:45 Respiratory Rate 18 01/30/17 18:45 Blood Pressure 160/91 01/30/17 18:45 O2 Sat by Pulse Oximetry 98 01/30/17 18:45 Course <Rene Cartagena - Last Filed: 01/30/17 17:52> - Consultations Time: 20:33 Time: 20:55 <Jeramie Hauser - Last Filed: 01/30/17 20:57> Course Narrative: Patient discussed with Dr. Gibson who will evaluate in the ED. (Rene Cartagena) - Consultations Consultation #1: Dr. Gibson will come see patient emergency room (Jeramie Hauser) Consultation #2: Dr. Gibson will admit patient consult wound care and hospitalist for medical management (Jeramie Hauser) Results - Labs CBC & BMP: 01/30/17 17:53 01/30/17 17:53 <Jeramie Hauser - Last Filed: 01/30/17 20:57> Disposition <Rene Cartagena - Last Filed: 01/30/17 17:52> Case discussed with: patient Time of Disposition: 20:57 <Jeramie Hauser - Last Filed: 01/30/17 20:57> Clinical Impression: Wound dehiscence, Postoperative wound dehiscence, Nonhealing surgical wound, Peripheral vascular disease, Diabetes Disposition: Still a Patient Condition: Stable
[2017-01-30 18:03] LABS: Basophils % 0.4 % (0.0-0.8); Eosinophils # 0.1 10*3/uL (0.0-0.87); Eosinophils % 0.9 % (0.00-10.9); Hematocrit 29.3 VOL% (35.7-47.0); Hemoglobin 9.7 GM/DL (12.0-16.0); Immature Granulocytes % 0.3 %; Immature Granulocytes Absolute 0.03 #; Lymphocytes # 1.7 10*3/uL (1.4-4.0); Lymphocytes % 17.3 % (21.3-54.2); Mean Corpuscular HGB Conc 33.1 GM/DL (32-36); Mean Corpuscular Hemoglobin 29 PG (27-34); Mean Platelet Volume 9.7 FL (9.6-12.0); Monocytes # 0.7 10*3/uL (0.11-0.8); Monocytes % 6.7 % (1.7-12.7); Neutrophils # 7.2 10*3/uL (1.4-7.4); Neutrophils % 74.4 % (38.7-73.9); Platelet Count 417 T/CUMM (130-400); Red Blood Count 3.33 MC/CUMM (3.8-5.5); Red Cell Distribution Width 15.4 % (9.3-17.3); White Blood Count 9.7 T/CUMM (4-12)
[2017-01-30 18:43] LABS: Alanine Aminotransferase < 9 U/L (13-56); Alkaline Phosphatase 83 U/L (45-117); Aspartate Amino Transferase 10 U/L (0-37); Blood Urea Nitrogen 11 MG/DL (7-18); Glucose 165 MG/DL (74-106); Osmolality,Calculated 270.2 MOS/KG (273-304); Potassium 3.6 MMOL/L (3.5-5.1); Sodium 134 MMOL/L (136-145); Total Protein 7.5 G/DL (6.4-8.3)
[2017-01-30] MEDS ORDERED: KETOROLAC 30 MG/1 ML VIAL IV STA (18:59)
[2017-01-30] MEDS ORDERED: KETOROLAC 30 MG/1 ML VIAL ONE (18:59)
--- NOTE | 2017-01-30 21:02 | General Surg History&Physical ---
Assessment and Plan (1) Wound infection after surgery Status: Acute Assessment and plan: This is an old wound with a delayed infection that has been open and being treated but it seems to be progressing patient will be admitted and began IV antibiotic therapy and then localized wound care note there does not appear to be any sign of sepsis with this localized wound infection Current Visit: Yes History of Present Illness Chief complaint: wound infection History of present illness: Ms. Desai is a 41 year old female Ms. Desai is a 41-year-old woman that we have had extreme difficulties with this year due related to severe hypertension diabetes and severe peripheral vascular disease she had a left femoral-popliteal bypass with [place]-Jose in November late November early December and had developed a modest wound infection of the left thigh at the popliteal incision this appeared to be superficial and had been being treated open she had been hospitalized numerous times with nausea vomiting abdominal pain and severe hypertension most recently about a week and half ago. She returned to the emergency room today with increasing drainage of her wound and indeed it has opened a bit further with some drainage she does not appear to be septic but this does have a [place]-Jose graft deep in the wound papilla should admit her to begin better wound care as this is obviously not adequately healing in her home environment. Home Medications Medication Instructions Recorded Confirmed Type Atorvastatin [Lipitor] 20 mg PO BEDTIME #30 tablet 07/29/15 01/30/17 Rx glyBURIDE [Diabeta] 5 mg PO BID W/MEALS #60 tablet 07/29/15 01/30/17 Rx Nicotine 21 mg/24 Hr Patch 1 patch TRANSDERM DAILY #30 patch 12/01/16 01/30/17 Rx [Nicoderm CQ 21 mg/24 hr Patch] Carvedilol [Coreg] 25 mg PO BID #60 tablet 12/08/16 01/30/17 Rx Apixaban [Eliquis] 5 mg PO BID #60 tablet 12/22/16 01/30/17 Rx Alum/Mag/Simeth Max Str Liquid 30 ml PO Q6H PRN 12/26/16 01/30/17 Rx [Mylanta Max Strength Liquid] Metoclopramide Tab [Reglan Tab] 10 mg PO ACHS tablet 12/26/16 01/30/17 Rx metFORMIN [Glucophage] 500 mg PO DAILY W/BREAKFAST tablet 12/26/16 01/30/17 Rx Aspirin EC Tab 81 mg PO QAM 01/09/17 01/30/17 History Docusate Sodium Cap [Colace Cap] 100 mg PO BID PRN 01/09/17 01/30/17 History FLUoxetine [PROzac] 20 mg PO QAM 01/09/17 01/30/17 History Lisinopril [Prinivil] 40 mg PO QAM 01/19/17 01/30/17 History HYDROcodone/ACETAMIN 7.5-325 1 tablet PO Q4H PRN #30 tablet 01/26/17 01/30/17 Rx [[place] 7.5-325] Pantoprazole Tab [Protonix Tab] 40 mg PO BID #60 tablet 01/26/17 01/30/17 Rx cloNIDine TAB [Catapres Tab] 0.3 mg PO BID #60 tablet 01/26/17 01/30/17 Rx levETIRAcetam TAB [Keppra Tab] 500 mg PO BID #60 tablet 01/26/17 01/30/17 Rx Allergies Allergy/AdvReac Type Severity Reaction Status Date / Time No Known Allergies Allergy Verified 01/30/17 17:05 Medical,Surgical,& Family Hx - Medical History Cardio: History of: Hypertension, PVD (VASCULAR STENTS 2017 TO LEFT LEG), Cardiovascular Problems (Left apical thrombus) Neurology: History of: Cerebrovascular Accident (2015- right side deficit), Peripheral Neuropathy No history of: Seizures HEENT: History of: Eye Problem (GLASSES) Endocrine: History of: Diabetes Mellitus (NIDDM) (since 1996, states didn't take insulin only pills at home), Dyslipidemia Respiratory: No history of: Respiratory Problems Genitourinary: History of: Recurring Urinary Tract Infections Gastrointestinal: History of: GERD (Since 2006), Pancreatitis (2006) Musculoskeletal: History of: Amputation (5th toe on left foot), Back/Neck Problems, Musculoskeletal Problems (ARTHRITIS.) Hematology: History of: Clotting Problems (Blood clots in legs & heart- december 2016) Reproductive: History of: Abnormal Pap Smear (2011) Other: History of: MRSA (Left foot), Miscellaneous Medical Problems (DVT 12/2016) - Surgical History Cardiac Surgeries: Patient Denies: Femoral-Popliteal Bypass Graft, Cardiac Catheterization, Cardiac Surgery, Carotid Endarterectomy, Internal Defibrillator, Vascular Access Devices Thoracic Surgeries: Patient denies;: Kidney (Renal Surgery), Lithotripsy, Nephrectomy, Organ Transplant, Lobectomy Neurologic Surgeries: Patient denies: Neurologic Surgery HEENT Surgeries: Patient denies: Carotid Endarterectomy, Eye Surgery, Thyroid Surgery, Tonsilectomy & Adenoidectomy Abdominal Surgeries: Surgical HX of: Abdominal Surgery, Cholecystectomy (2012), Colonoscopy Patient denies: Splenectomy Reproductive Surgeries: Patient denies;: Breast Surgery, Section, Cystoscopy, Dilation and Curettage, Genitourinary Surgery, Gynecologic Surgery, Hysterectomy, Tubal Ligation Orthopedic Surgeries: Patient denies;: Implanted Devices, Orthopedic Surgery, Spinal Surgery, Total Hip Replacement, Total Knee Replacement - Family History Family History: Reports;: Family Cancer (uncle-colon, aunt-breast, aunt-leukemia ), Family Diabetes (Father), Family Heart Disease (Mother- [place]), Family Hypertension (Mother), Family Stroke (Mother) Denies;: Family Anesthesia Reaction, Family Psychiatric Problems - Social History Smoking Status: Current every day smoker Frequency of Alcohol Use: None Type of Drug Use: None Exam - Constitutional Vitals: Period Temp Pulse Resp BP Sys/Chavarria Pulse Ox Last 24 Hr 97.6 F-97.6 F 92-96 16-20 110-160/81-91 98-100 General appearance: normal weight, no acute distress - Head Head exam: Present: normal inspection - Eye Eye exam: Present: EOMI Pupils: Present: ANTIONETTE - Neck Neck exam: Present: normal inspection - Respiratory Respiratory exam: Present: clear to auscultation bilaterally - Cardiovascular Cardiovascular exam: Present: RRR - GI/Abdominal GI/Abdominal exam: Present: soft - Expanded Left Lower Upper Leg exam: Present: swelling (She has an open wound in the mid thigh medially at the site of her popliteal incision is has some moderately purulent drainage healthy-appearing granulation tissue no active bleeding no significant abscess that I can find also a note that leg overall is less swollen and in the past she still has a significant neuropathy that occurred with her extreme ischemia while we were trying to revascularize her leg.) Neuro vascular tendon exam: Present: decreased fine/light touch, foot drop, pulse deficit Results - Labs CBC & BMP: 01/30/17 17:53 01/30/17 17:53
[2017-01-30] MEDS ORDERED: SODIUM HYPOCHLORITE 0.25% IRRIG 473 ML BOTTLE ONE (21:04)
[2017-01-30] MEDS ORDERED: ONDANSETRON 4 MG/2 ML VIAL ONE (21:40)
[2017-01-30] MEDS ORDERED: HYDROmorphone 2 MG/1 ML VIAL ONE (21:40)
[2017-01-30] MEDS ORDERED: HYDROmorphone 2 MG/1 ML VIAL IV ONE (21:41)
[2017-01-30] MEDS ORDERED: ONDANSETRON 4 MG/2 ML VIAL IV STA (21:41)
[2017-01-30] MEDS ORDERED: ACETAMINOPHEN 325 MG TABLET PO PRN (22:27)
[2017-01-30] MEDS ORDERED: ALUMINUM/MAGNES/SIMETH MAX STR 30 ML UDCUP PO PRN (22:27)
[2017-01-30] MEDS ORDERED: ALBUTEROL/IPRATROPIUM 3 ML NEB RESP TX PRN (22:27)
[2017-01-30] MEDS ORDERED: GLUCAGON 1 MG VIAL IM PRN (22:27)
[2017-01-30] MEDS ORDERED: DOCUSATE SODIUM 100 MG CAPSULE PO PRN (22:27)
[2017-01-30] MEDS ORDERED: DEXTROSE 50% 25 GM/50 ML SYRINGE IV PRN (22:27)
[2017-01-30] MEDS: SODIUM CHLORIDE 0.9% 1,000 ML IV SCH (23:18)
[2017-01-30] MEDS: MEROPENEM 1,000 MG in SODIUM CHLORIDE 0.9% 50 ML IV SCH (23:53)
[2017-01-30] MEDS: levETIRAcetam 500 MG TABLET PO SCH (23:53)
[2017-01-30] MEDS: ATORVASTATIN 20 MG TABLET PO SCH (23:54)
[2017-01-30] MEDS: METOCLOPRAMIDE 10 MG TABLET PO SCH (23:54)
[2017-01-30] MEDS: PANTOPRAZOLE 40 MG TABLET PO SCH (23:54)
[2017-01-30] MEDS: CARVEDILOL 25 MG TABLET PO SCH (23:57)
[2017-01-30] MEDS: APIXABAN 5 MG TABLET PO SCH (23:57)
[2017-01-30] MEDS: INSULIN REGULAR 100 UNIT/ML SUBCUT SCH (23:58)
[2017-01-31] MEDS: HYDROmorphone 2 MG/1 ML VIAL IV PRN ×5 (05:42→22:50)
[2017-01-31] MEDS: MEROPENEM 1,000 MG in SODIUM CHLORIDE 0.9% 50 ML IV SCH ×2 (06:02→14:28)
[2017-01-31 06:56] LABS: Basophils % 0.6 % (0.0-0.8); Eosinophils # 0.1 10*3/uL (0.0-0.87); Hematocrit 26.7 VOL% (35.7-47.0); Hemoglobin 8.7 GM/DL (12.0-16.0); Immature Granulocytes % 0.3 %; Immature Granulocytes Absolute 0.02 #; Lymphocytes % 28.5 % (21.3-54.2); Mean Corpuscular HGB Conc 32.6 GM/DL (32-36); Mean Corpuscular Hemoglobin 29 PG (27-34); Mean Corpuscular Volume 87.8 FL (87-102); Mean Platelet Volume 9.6 FL (9.6-12.0); Monocytes # 0.8 10*3/uL (0.11-0.8); Monocytes % 11.4 % (1.7-12.7); Neutrophils % 57.2 % (38.7-73.9); Platelet Count 369 T/CUMM (130-400); Red Blood Count 3.04 MC/CUMM (3.8-5.5); Red Cell Distribution Width 15.5 % (9.3-17.3); White Blood Count 6.9 T/CUMM (4-12)
[2017-01-31 07:22] LABS: Alanine Aminotransferase < 9 U/L (13-56); Albumin 1.8 G/DL (3.4-5.0); Alkaline Phosphatase 85 U/L (45-117); Aspartate Amino Transferase 8 U/L (0-37); Blood Urea Nitrogen 14 MG/DL (7-18); Glucose 96 MG/DL (74-106); Magnesium 1.7 MG/DL (1.8-2.4); Osmolality,Calculated 275.7 MOS/KG (273-304); Potassium 3.4 MMOL/L (3.5-5.1); Sodium 138 MMOL/L (136-145); Total Protein 6.5 G/DL (6.4-8.3)
[2017-01-31] MEDS ORDERED: metFORMIN 500 MG TABLET PO SCH (08:00)
[2017-01-31] MEDS: INSULIN REGULAR 100 UNIT/ML SUBCUT SCH ×3 (08:24→18:38)
[2017-01-31] MEDS ORDERED: POTASSIUM CHLORIDE 20 MEQ TABLET PO PRN (08:28)
[2017-01-31] MEDS ORDERED: PANTOPRAZOLE 40 MG TABLET PO SCH (09:00)
--- NOTE | 2017-01-31 09:16 | Hospitalist Consult Note ---
<Shazia Montes - Last Filed: 01/31/17 11:35> Assessment and Plan (1) Diabetes Status: Acute Assessment and plan: Accu-Cheks before meals at bedtime. Sliding-scale insulin. Hemoglobin A1c is already been obtained. Consult diabetes management education. Current Visit: Yes (2) Nonhealing surgical wound Status: Acute Assessment and plan: Defer to surgery. Current Visit: Yes (3) Peripheral vascular disease Status: Chronic Current Visit: Yes (4) Anemia Status: Chronic Assessment and plan: Patient's H&H is 8.7/26.7. Monitor H&H. Pt. has history of anemia. Transfuse if necessary. Current Visit: No (5) Hypokalemia Status: Acute Assessment and plan: Initiate potassium replacement protocol. Recheck in am. Current Visit: No History of Present Illness - Data of Consult Patient: known to practice within the last 3 years Consult date: 01/31/17 - Consult Narrative Reason for consult: medical management History of present illness: Ms. Desai is a 41 year old black female with a history of smoking, GERD, hypertension, PVD, CVA, peripheral neuropathy, diabetes, dyslipidemia, and DVTs reported to the ED on 01/30 for further evaluation of left lower thigh swelling with drainage and fever. Ms. Desai is known to our service as she has been seen by our service several times with at least 3 admissions within the last 2 months. She was just recently discharged 3 days ago after being admitted and treated for abdominal pain. She is also recently s/p a left femoral-popliteal bypass with [place]-Jose in November and had complications from that surgery. On last night's presentation to the ED patient reported increasing drainage of her wound. She was admitted to the general surgery service and our service has been consulted to medically manage patient's hypertension and diabetes. Patient was seen and examined in room 333. Labs and chart have been reviewed. Patient's blood pressure currently stable as is her blood glucose. Home medicines have been restarted to manage blood pressure and a sliding scale insulin has been added. Thank you for your consult. We will follow this patient with you. CC: Kristopher Gibson MD - Home Medications and Allergies Home Medications: Home Medications Medication Instructions Recorded Confirmed Type Atorvastatin [Lipitor] 20 mg PO BEDTIME #30 tablet 07/29/15 01/31/17 Rx glyBURIDE [Diabeta] 5 mg PO BID W/MEALS #60 tablet 07/29/15 01/31/17 Rx Nicotine 21 mg/24 Hr Patch 1 patch TRANSDERM DAILY #30 patch 12/01/16 01/31/17 Rx [Nicoderm CQ 21 mg/24 hr Patch] Carvedilol [Coreg] 25 mg PO BID #60 tablet 12/08/16 01/31/17 Rx Apixaban [Eliquis] 5 mg PO BID #60 tablet 12/22/16 01/31/17 Rx Alum/Mag/Simeth Max Str Liquid 30 ml PO Q6H PRN 12/26/16 01/31/17 Rx [Mylanta Max Strength Liquid] metFORMIN [Glucophage] 500 mg PO DAILY W/BREAKFAST tablet 12/26/16 01/31/17 Rx Aspirin EC Tab 81 mg PO QAM 01/09/17 01/31/17 History Docusate Sodium Cap [Colace Cap] 100 mg PO BID PRN 01/09/17 01/31/17 History FLUoxetine [PROzac] 20 mg PO QAM 01/09/17 01/31/17 History Lisinopril [Prinivil] 40 mg PO QAM 01/19/17 01/31/17 History HYDROcodone/ACETAMIN 7.5-325 1 tablet PO Q4H PRN #30 tablet 01/26/17 01/31/17 Rx [[place] 7.5-325] Pantoprazole Tab [Protonix Tab] 40 mg PO BID #60 tablet 01/26/17 01/31/17 Rx cloNIDine TAB [Catapres Tab] 0.3 mg PO BID #60 tablet 01/26/17 01/31/17 Rx levETIRAcetam TAB [Keppra Tab] 500 mg PO BID #60 tablet 01/26/17 01/31/17 Rx Acetaminophen Tab [Tylenol Tab] 1,000 mg PO Q6HR PRN 01/31/17 01/31/17 History Metoclopramide Tab [Reglan Tab] 10 mg PO QID W/MEALS & HS 01/31/17 01/31/17 History Oxycodone HCl/Acetaminophen 1 tablet PO Q6HR 01/31/17 01/31/17 History [Oxycodone-Acetaminophen 5-325] Allergies/Adverse Reactions: Allergies Allergy/AdvReac Type Severity Reaction Status Date / Time No Known Allergies Allergy Verified 01/30/17 17:05 Medical,Surgical,& Family Hx - Medical History Cardio: History of: Hypertension, PVD (VASCULAR STENTS 2017 TO LEFT LEG), Cardiovascular Problems (Left apical thrombus) Neurology: History of: Cerebrovascular Accident (2016- right side deficit), Peripheral Neuropathy No history of: Seizures HEENT: History of: Eye Problem (GLASSES) Endocrine: History of: Diabetes Mellitus (NIDDM) (since 1996, states didn't take insulin only pills at home), Dyslipidemia Respiratory: No history of: Respiratory Problems Genitourinary: History of: Recurring Urinary Tract Infections Gastrointestinal: History of: GERD (Since 2006), Pancreatitis (2006) Musculoskeletal: History of: Amputation (5th toe on left foot), Back/Neck Problems, Musculoskeletal Problems (ARTHRITIS.) Hematology: History of: Clotting Problems (Blood clots in legs & heart- december 2016) Reproductive: History of: Abnormal Pap Smear (2011) Other: History of: MRSA (Left foot), Miscellaneous Medical Problems (DVT 12/2016) - Surgical History Cardiac Surgeries: Patient Denies: Femoral-Popliteal Bypass Graft, Cardiac Catheterization, Cardiac Surgery, Carotid Endarterectomy, Internal Defibrillator, Vascular Access Devices Thoracic Surgeries: Patient denies;: Kidney (Renal Surgery), Lithotripsy, Nephrectomy, Organ Transplant, Lobectomy Neurologic Surgeries: Patient denies: Neurologic Surgery HEENT Surgeries: Patient denies: Carotid Endarterectomy, Eye Surgery, Thyroid Surgery, Tonsilectomy & Adenoidectomy Abdominal Surgeries: Surgical HX of: Abdominal Surgery, Cholecystectomy (2012), Colonoscopy Patient denies: Splenectomy Reproductive Surgeries: Patient denies;: Breast Surgery, Section, Cystoscopy, Dilation and Curettage, Genitourinary Surgery, Gynecologic Surgery, Hysterectomy, Tubal Ligation Orthopedic Surgeries: Patient denies;: Implanted Devices, Orthopedic Surgery, Spinal Surgery, Total Hip Replacement, Total Knee Replacement - Family History Family History: Reports;: Family Cancer (uncle-colon, aunt-breast, aunt-leukemia ), Family Diabetes (Father), Family Heart Disease (Mother, Grandfather- [place]), Family Hypertension (Mother), Family Stroke (Mother) Denies;: Family Anesthesia Reaction, Family Psychiatric Problems - Social History Smoking Status: Current every day smoker Frequency of Alcohol Use: None Type of Drug Use: None Marital Status: Single Lives With:: aunt Functional capacity: independent ambulation 12 point system: reviewed and no additional remarkable complaints except as stated - Constitutional Constitutional: Present: fever(s). Absent: night sweats - Gastrointestinal Gastrointestinal: Present: nausea Exam - Constitutional Vitals: Period Temp Pulse Resp BP Sys/Chavarria Pulse Ox Last 24 Hr 97.0 F-97.9 F 60-96 16-20 101-160/57-91 2-100 General appearance: normal weight, no acute distress - Head Head exam: Present: normal inspection, normocephalic - Eye Eye exam: Present: EOMI Pupils: Present: ANTINOETTE - Respiratory Respiratory exam: Present: clear to auscultation bilaterally. Absent: wheezes - Cardiovascular Cardiovascular exam: Present: regular rate and rhythm - GI/Abdominal GI/Abdominal exam: Present: normal bowel sounds, soft. Absent: tenderness - Extremities Exam Extremities exam: Present: other. Absent: edema - Expanded Left Lower Upper Leg exam: Present: swelling, tenderness. Absent: normal inspection (pt has bandage to area) Gait: Present: not tested/not observed - Neurological Exam Neurological exam: Present: alert, oriented X3 - Psychiatric Psychiatric exam: Present: normal affect, normal mood - Skin Skin exam: Present: normal color, warm, dry Results - Labs CBC & BMP: 01/31/17 06:45 01/31/17 06:45 Lab Results: I have reviewed the past 24 hour labs <Leslie Salgado - Last Filed: 01/31/17 12:19> History of Present Illness - Consult Narrative History of present illness: Ms. Desai is a 41 year old female with multiple medical issues is admitted for a non healing surgical wound and we have been asked to medically manage.Patient was seen, examined and discussed with the BRAILLE TYPIST. Plan continue current care [id number] DM teaching Replete potassium BC CC: Kristopher Gibson MD Exam - Constitutional Vitals: Period Temp Pulse Resp BP Sys/Chavarria Pulse Ox Last 24 Hr 97.0 F-97.9 F 60-96 16-20 101-160/57-91 2-100 Results - Labs CBC & BMP: 01/31/17 06:45 01/31/17 06:45
--- NOTE | 2017-01-31 09:28 | Event Note ---
Ms. Desai medial thigh wound is actually relatively clean today there is a little bit of eschar that will slough easily and quickly there is no purulent drainage she has no fever or other signs of infection white blood count is normal cultures are pending that were taken last night I have contacted wound care to look into placing a wound VAC believe that that will aid in the healing of this wound.
[2017-01-31] MEDS: SODIUM HYPOCHLORITE 0.25% IRRIG 473 ML BOTTLE TOP SCH ×2 (09:50→22:17)
[2017-01-31] MEDS: PANTOPRAZOLE 40 MG TABLET PO SCH ×2 (10:10→21:32)
[2017-01-31] MEDS: FLUoxetine 20 MG CAPSULE PO SCH (10:10)
[2017-01-31] MEDS: LISINOPRIL 20 MG TABLET PO SCH (10:10)
[2017-01-31] MEDS: levETIRAcetam 500 MG TABLET PO SCH ×2 (10:10→21:32)
[2017-01-31] MEDS: CARVEDILOL 25 MG TABLET PO SCH ×2 (10:10→21:32)
[2017-01-31] MEDS: METOCLOPRAMIDE 10 MG TABLET PO SCH ×4 (10:10→21:32)
[2017-01-31] MEDS: glyBURIDE 5 MG TABLET PO SCH ×2 (10:10→17:07)
[2017-01-31] MEDS: ASPIRIN EC 81 MG TABLET PO SCH (10:10)
[2017-01-31] MEDS: APIXABAN 5 MG TABLET PO SCH ×2 (10:10→21:32)
[2017-01-31] MEDS: NICOTINE 21 MG/24 HR PATCH TRANSDERM SCH (10:20)
[2017-01-31] MEDS ORDERED: POTASSIUM CHLORIDE 20 MEQ TABLET PO ONE (10:27)
--- NOTE | 2017-01-31 11:15 | XRay Report ---
Exam: XR chest 2V Date: 01/31/2017 4:00 AM Indication: Shortness of breath Comparison: 01/19/2017 Technical: PA lateral Findings: The heart is normal in size. The mediastinum and bony structures are intact. No obvious consolidating infiltrates or effusions. Impression . 1. No acute cardiopulmonary pathology PROCEDURE INTERPRETED AT [facility] Final Report Signed by: Dr. Eben Hawkins
[2017-01-31] MEDS: oxyCODONE/ACETAMINOPHEN 5-325 MG TABLET PO SCH ×2 (12:19→18:07)
[2017-01-31] MEDS: SODIUM CHLORIDE 0.9% 1,000 ML IV SCH (15:01)
[2017-01-31 15:25] LABS: Hematocrit 25.1 VOL% (35.7-47.0); Hemoglobin 8.3 GM/DL (12.0-16.0)
[2017-01-31] MEDS: ATORVASTATIN 20 MG TABLET PO SCH (21:32)
[2017-02-01] MEDS: oxyCODONE/ACETAMINOPHEN 5-325 MG TABLET PO SCH ×5 (00:44→23:56)
[2017-02-01] MEDS: MEROPENEM 1,000 MG in SODIUM CHLORIDE 0.9% 50 ML IV SCH ×4 (00:44→23:30)
[2017-02-01] MEDS: INSULIN REGULAR 100 UNIT/ML SUBCUT SCH ×5 (00:44→23:20)
[2017-02-01 05:25] LABS: Basophils % 0.3 % (0.0-0.8); Eosinophils # 0.1 10*3/uL (0.0-0.87); Eosinophils % 1.7 % (0.00-10.9); Hematocrit 25.5 VOL% (35.7-47.0); Hemoglobin 8.2 GM/DL (12.0-16.0); Immature Granulocytes % 0.2 %; Immature Granulocytes Absolute 0.01 #; Lymphocytes % 31.3 % (21.3-54.2); Mean Corpuscular HGB Conc 32.2 GM/DL (32-36); Mean Corpuscular Hemoglobin 29 PG (27-34); Mean Corpuscular Volume 89.2 FL (87-102); Monocytes # 0.8 10*3/uL (0.11-0.8); Monocytes % 11.7 % (1.7-12.7); Neutrophils # 3.5 10*3/uL (1.4-7.4); Neutrophils % 54.8 % (38.7-73.9); Platelet Count 344 T/CUMM (130-400); Red Blood Count 2.86 MC/CUMM (3.8-5.5); Red Cell Distribution Width 15.7 % (9.3-17.3); White Blood Count 6.4 T/CUMM (4-12)
[2017-02-01 05:54] LABS: Calcium 8.7 MG/DL (8.5-10.1); Magnesium 1.8 MG/DL (1.8-2.4); Osmolality,Calculated 277.4 MOS/KG (273-304); Potassium 3.7 MMOL/L (3.5-5.1)
[2017-02-01] MEDS: HYDROmorphone 2 MG/1 ML VIAL IV PRN ×3 (09:16→20:26)
[2017-02-01] MEDS: METOCLOPRAMIDE 10 MG TABLET PO SCH ×4 (09:22→20:23)
[2017-02-01] MEDS: glyBURIDE 5 MG TABLET PO SCH ×2 (09:22→18:32)
[2017-02-01] MEDS: NICOTINE 21 MG/24 HR PATCH TRANSDERM SCH (09:23)
[2017-02-01] MEDS: ASPIRIN EC 81 MG TABLET PO SCH (09:23)
[2017-02-01] MEDS: levETIRAcetam 500 MG TABLET PO SCH ×2 (09:23→20:23)
[2017-02-01] MEDS: CARVEDILOL 25 MG TABLET PO SCH ×2 (09:23→20:23)
[2017-02-01] MEDS: APIXABAN 5 MG TABLET PO SCH ×2 (09:23→20:23)
[2017-02-01] MEDS: FLUoxetine 20 MG CAPSULE PO SCH (09:24)
[2017-02-01] MEDS: PANTOPRAZOLE 40 MG TABLET PO SCH ×2 (09:24→20:23)
[2017-02-01] MEDS: LISINOPRIL 20 MG TABLET PO SCH (09:24)
--- NOTE | 2017-02-01 10:48 | Event Note ---
Olga Lidia is doing a little better today she is eating breakfast no fever chills or signs of infection wound VAC is in place and I would like to leave it on at least until tomorrow I am waiting for cultures to determine if there is an oral antibiotic that I can use have to make arrangements for her to have a wound VAC managed at home
[2017-02-01] MEDS: SODIUM HYPOCHLORITE 0.25% IRRIG 473 ML BOTTLE TOP SCH ×2 (11:26→20:26)
--- NOTE | 2017-02-01 15:08 | Hospitalist Progress Note ---
Assessment and Plan (1) Wound dehiscence Status: Acute Assessment and plan: growing pseudomonas, cont meropenem and wound vac Current Visit: Yes (2) Diabetes mellitus Status: Acute Assessment and plan: Continue current glyburide Current Visit: No (3) Peripheral vascular disease Status: Acute Assessment and plan: continue to smoke Current Visit: No (4) Nicotine addiction Status: Acute Current Visit: No (5) Essential hypertension Status: Acute Assessment and plan: controlled on lisinopril, clonidine, and coreg Current Visit: No (6) Noncompliance with medication regimen Status: Acute Current Visit: No (7) Partial seizure Status: Acute Assessment and plan: cont keppra 500 mg po bid Current Visit: No Hospitalist: Subjective Interval history: Patient has a wound VAC where her wound dehisced from the femoropopliteal. Patient has multiple recurring admissions. Blood sugar dropped down to 69 this morning Exam - Constitutional Vitals: Period Temp Pulse Resp BP Sys/Chavarria Pulse Ox Last 24 Hr 98.0 F-98.8 F 91-103 16-20 112-146/62-72 90-98 Exam: Heart Rate-[tachy] Lungs-[CTAB] GI-[+bs soft, NT] Ext-[wound dehiscence, wound vac on ] Neuro [Motor 5/5], [alert and oriented times 3] psych [depressed mood and affect] General [no acute distress] Results - Labs CBC & BMP: 02/01/17 04:25 02/01/17 04:25 Lab Results: I have reviewed the past 24 hour labs Labs: Wound growing Pseudomonas, blood cultures 2 negative no growth. - Diagnostic Findings Procedure: Chest x-ray: report reviewed by me (nothing acute) Quality Measures - VTE Contraindication to Pharmacological VTE Prophylaxis: Already on Theraputic Agent , No Prophylaxis Needed
[2017-02-01] MEDS: ATORVASTATIN 20 MG TABLET PO SCH (20:23)
[2017-02-02] MEDS: HYDROmorphone 2 MG/1 ML VIAL IV PRN ×4 (05:28→21:43)
[2017-02-02] MEDS: oxyCODONE/ACETAMINOPHEN 5-325 MG TABLET PO SCH ×3 (06:42→18:51)
[2017-02-02] MEDS: MEROPENEM 1,000 MG in SODIUM CHLORIDE 0.9% 50 ML IV SCH (06:42)
[2017-02-02] MEDS: SODIUM CHLORIDE 0.9% 1,000 ML IV SCH (06:52)
[2017-02-02] MEDS: INSULIN REGULAR 100 UNIT/ML SUBCUT SCH ×4 (07:53→21:42)
[2017-02-02 08:10] LABS: Calcium 8.5 MG/DL (8.5-10.1); Magnesium 1.9 MG/DL (1.8-2.4); Osmolality,Calculated 278.3 MOS/KG (273-304)
[2017-02-02] MEDS: NICOTINE 21 MG/24 HR PATCH TRANSDERM SCH (09:18)
[2017-02-02] MEDS: APIXABAN 5 MG TABLET PO SCH ×2 (09:22→21:40)
[2017-02-02] MEDS: PANTOPRAZOLE 40 MG TABLET PO SCH ×2 (09:22→21:41)
[2017-02-02] MEDS: LISINOPRIL 20 MG TABLET PO SCH (09:22)
[2017-02-02] MEDS: FLUoxetine 20 MG CAPSULE PO SCH (09:23)
[2017-02-02] MEDS: levETIRAcetam 500 MG TABLET PO SCH ×2 (09:23→21:41)
[2017-02-02] MEDS: glyBURIDE 5 MG TABLET PO SCH ×2 (09:23→17:26)
[2017-02-02] MEDS: ASPIRIN EC 81 MG TABLET PO SCH (09:24)
[2017-02-02] MEDS: METOCLOPRAMIDE 10 MG TABLET PO SCH ×4 (09:24→21:41)
[2017-02-02] MEDS: CARVEDILOL 25 MG TABLET PO SCH ×2 (09:24→21:40)
[2017-02-02 09:30] LABS: Basophils % 0.4 % (0.0-0.8); Eosinophils # 0.2 10*3/uL (0.0-0.87); Eosinophils % 2.5 % (0.00-10.9); Hematocrit 27.1 VOL% (35.7-47.0); Hemoglobin 8.4 GM/DL (12.0-16.0); Immature Granulocytes % 0.4 %; Immature Granulocytes Absolute 0.03 #; Lymphocytes # 1.7 10*3/uL (1.4-4.0); Lymphocytes % 23.5 % (21.3-54.2); Mean Corpuscular Hemoglobin 29 PG (27-34); Mean Corpuscular Volume 92.8 FL (87-102); Mean Platelet Volume 9.7 FL (9.6-12.0); Monocytes # 0.6 10*3/uL (0.11-0.8); Monocytes % 7.5 % (1.7-12.7); Neutrophils # 4.8 10*3/uL (1.4-7.4); Neutrophils % 65.7 % (38.7-73.9); Platelet Count 361 T/CUMM (130-400); Red Blood Count 2.92 MC/CUMM (3.8-5.5); Red Cell Distribution Width 15.7 % (9.3-17.3); White Blood Count 7.3 T/CUMM (4-12)
[2017-02-02] MEDS: SODIUM HYPOCHLORITE 0.25% IRRIG 473 ML BOTTLE TOP SCH ×2 (10:41→21:49)
[2017-02-02] MEDS: POLYETHYLENE GLYCOL POWDER 17 GM PACK PO SCH (10:48)
[2017-02-02] MEDS: ALUMINUM/MAGNES/SIMETH MAX STR 30 ML UDCUP PO SCH ×3 (10:48→23:50)
--- NOTE | 2017-02-02 10:52 | Event Note ---
Mrs. Desai wounds appear to be cleaning wound appears to be cleaning up nicely with wound VAC cultures have grown Pseudomonas and Klebsiella unfortunately the sensitivities appear to be only to IV antibiotics for this Pseudomonas. She has had Pseudomonas in this wound in the past. I therefore am changing her from meropenem to cefepime based on the cultures and sensitivities and I will plan for her to stay here on IV antibiotics at least over the weekend.
[2017-02-02] MEDS ORDERED: CEFEPIME 1,000 MG in SODIUM CHLORIDE 0.9% 50 ML IV SCH (11:00)
--- NOTE | 2017-02-02 12:51 | Infectious Disease Consult ---
Assessment and Plan (1) Wound infection after surgery Status: Acute Assessment and plan: Left distal thigh wound infection, polymicrobial with Klebsiella and Pseudomonas. Reformations: 1. Agree with cefepime but increase dose to 2 g every 8 hours to better get at the Pseudomonas 2. The Pseudomonas is intermediately sensitive to levofloxacin but reported is fully sensitive to ciprofloxacin. Patient will probably get some benefit from quinolones therefore I will add ciprofloxacin 500 mg twice a day for double coverage of the Pseudomonas 3. Aggressive wound care 4. Follow-up blood cultures to make sure she is not septicemic Thank you very much for the consult. Will follow. Current Visit: Yes (2) Diabetes mellitus Status: Chronic Assessment and plan: Uncontrolled A1c of 7.8% Current Visit: No Qualifiers: Diabetes mellitus type: type 2 Diabetes mellitus complication status: without complication Diabetes mellitus predatory animal exterminator insulin use: without predatory animal exterminator use Qualified Code(s): E11.9 - Type 2 diabetes mellitus without complications (3) Hypertension Status: Chronic Current Visit: No Qualifiers: Hypertension type: essential hypertension Qualified Code(s): I10 - Essential (primary) hypertension (4) Severe peripheral arterial disease Status: Chronic Current Visit: No History of Present Illness Chief complaint: Wound infection History of present illness: Ms. Desai is a 41 year old female with long-standing diabetes and severe peripheral vascular disease had femoropopliteal bypass to left lower extremity about 2 months ago. Unfortunately the distal thigh wound got infected about a month postoperatively. The patient was admitted to hospital couple times over the past month for a wound infection. She was last here about a week and half ago. Since going home she had increased drainage from the wound and started feeling unwell with nausea and vomiting and so she came back to the hospital. No fever. I am asked to assist with management of antibiotics. Home Medications Medication Instructions Recorded Confirmed Type Atorvastatin [Lipitor] 20 mg PO BEDTIME #30 tablet 07/29/15 01/31/17 Rx glyBURIDE [Diabeta] 5 mg PO BID W/MEALS #60 tablet 07/29/15 01/31/17 Rx Nicotine 21 mg/24 Hr Patch 1 patch TRANSDERM DAILY #30 patch 12/01/16 01/31/17 Rx [Nicoderm CQ 21 mg/24 hr Patch] Carvedilol [Coreg] 25 mg PO BID #60 tablet 12/08/16 01/31/17 Rx Apixaban [Eliquis] 5 mg PO BID #60 tablet 12/22/16 01/31/17 Rx Alum/Mag/Simeth Max Str Liquid 30 ml PO Q6H PRN 12/26/16 01/31/17 Rx [Mylanta Max Strength Liquid] metFORMIN [Glucophage] 500 mg PO DAILY W/BREAKFAST tablet 12/26/16 01/31/17 Rx Aspirin EC Tab 81 mg PO QAM 01/09/17 01/31/17 History Docusate Sodium Cap [Colace Cap] 100 mg PO BID PRN 01/09/17 01/31/17 History FLUoxetine [PROzac] 20 mg PO QAM 01/09/17 01/31/17 History Lisinopril [Prinivil] 40 mg PO QAM 01/19/17 01/31/17 History HYDROcodone/ACETAMIN 7.5-325 1 tablet PO Q4H PRN #30 tablet 01/26/17 01/31/17 Rx [[place] 7.5-325] Pantoprazole Tab [Protonix Tab] 40 mg PO BID #60 tablet 01/26/17 01/31/17 Rx cloNIDine TAB [Catapres Tab] 0.3 mg PO BID #60 tablet 01/26/17 01/31/17 Rx levETIRAcetam TAB [Keppra Tab] 500 mg PO BID #60 tablet 01/26/17 01/31/17 Rx Acetaminophen Tab [Tylenol Tab] 1,000 mg PO Q6HR PRN 01/31/17 01/31/17 History Metoclopramide Tab [Reglan Tab] 10 mg PO QID W/MEALS & HS 01/31/17 01/31/17 History Oxycodone HCl/Acetaminophen 1 tablet PO Q6HR 01/31/17 01/31/17 History [Oxycodone-Acetaminophen 5-325] Allergies Allergy/AdvReac Type Severity Reaction Status Date / Time No Known Allergies Allergy Verified 01/30/17 17:05 12 point system: reviewed and no additional remarkable complaints except as stated (per HPI) Medical,Surgical,& Family Hx - Medical History Cardio: History of: Hypertension, PVD (VASCULAR STENTS 2017 TO LEFT LEG), Cardiovascular Problems (Left apical thrombus) Neurology: History of: Cerebrovascular Accident (2016- right side deficit), Peripheral Neuropathy No history of: Seizures HEENT: History of: Eye Problem (GLASSES) Endocrine: History of: Diabetes Mellitus (NIDDM) (since 1996, states didn't take insulin only pills at home), Dyslipidemia Respiratory: No history of: Respiratory Problems Genitourinary: History of: Recurring Urinary Tract Infections Gastrointestinal: History of: GERD (Since 2006), Pancreatitis (2006) Musculoskeletal: History of: Amputation (5th toe on left foot), Back/Neck Problems, Musculoskeletal Problems (ARTHRITIS.) Hematology: History of: Clotting Problems (Blood clots in legs & heart- december 2016) Reproductive: History of: Abnormal Pap Smear (2011) Other: History of: MRSA (Left foot), Miscellaneous Medical Problems (DVT 12/2016) - Surgical History Cardiac Surgeries: Patient Denies: Femoral-Popliteal Bypass Graft, Cardiac Catheterization, Cardiac Surgery, Carotid Endarterectomy, Internal Defibrillator, Vascular Access Devices Thoracic Surgeries: Patient denies;: Kidney (Renal Surgery), Lithotripsy, Nephrectomy, Organ Transplant, Lobectomy Neurologic Surgeries: Patient denies: Neurologic Surgery HEENT Surgeries: Patient denies: Carotid Endarterectomy, Eye Surgery, Thyroid Surgery, Tonsilectomy & Adenoidectomy Abdominal Surgeries: Surgical HX of: Abdominal Surgery, Cholecystectomy (2012), Colonoscopy Patient denies: Splenectomy Reproductive Surgeries: Patient denies;: Breast Surgery, Section, Cystoscopy, Dilation and Curettage, Genitourinary Surgery, Gynecologic Surgery, Hysterectomy, Tubal Ligation Orthopedic Surgeries: Patient denies;: Implanted Devices, Orthopedic Surgery, Spinal Surgery, Total Hip Replacement, Total Knee Replacement - Family History Family History: Reports;: Family Cancer (uncle-colon, aunt-breast, aunt-leukemia ), Family Diabetes (Father), Family Heart Disease (Mother, Grandfather- [place]), Family Hypertension (Mother), Family Stroke (Mother) Denies;: Family Anesthesia Reaction, Family Psychiatric Problems - Social History Smoking Status: Current every day smoker Frequency of Alcohol Use: None Type of Drug Use: None Infectious Disease Exam H&P - Constitutional Vitals: Vital Signs Temp Pulse Resp BP Pulse Ox 96.3 F L 86 18 162/81 96 02/02/17 07:35 02/02/17 07:35 02/02/17 07:35 02/02/17 07:35 02/02/17 07:35 Intake and Output 02/01/17 02/02/1717 23:59 07:59 15:59 Intake Total 290 / 290 650 / 650 50 / 50 Output Total 300 / 300 700 / 700 Balance -10 / -10 -50 / -50 50 / 50 Intake: IV 50 / 50 50 / 50 50 / 50 Merrem 1,000 mg In Ns 50 50 / 50 50 / 50 50 / 50 ml @ 100 mls/hr IV Q8H [facility] Rx#:[id number] Oral 240 / 240 600 / 600 Output: Urine 300 / 300 700 / 700 Stool 0 / 0 Other: Voiding Method Toilet Bedpan # Voids 1 2 Weight 79.016 kg Patient Weight 02/02/17 23:59 Weight 79.016 kg Exam: General: Patient relatively comfortable but chronically ill looking HEENT: Mucous membranes pink and moist, anicteric acyanotic, ANTIONETTE, no oral exudates, fairly good dentition Neck: Supple, no thyroid gland enlargement Respiratory system: Breath sounds vesicular, no crepitations or wheezes Cardiovascular: Normal S1 and S2, no murmurs appreciated Abdomen: Normal bowel sounds, soft nontender throughout, no organomegaly or mass Genitourinary: No suprapubic pain or bladder distention Extremities: no edema, left femoral surgical wound noted with shallow ulceration and sloughing material, no active drainage. Left distal medial thigh wound with VAC. Foot is noted and it had quite a bit of stuffy to see and purulent drainage. Scab to lateral left foot with fifth toe is updated. Blister noted to the tip of right great toe. Skin: No rash Reports - Labs CBC & BMP: 02/02/17 08:57 02/02/17 07:07 Labs: Laboratory Results - last 24 hr 02/01/17 02/01/17 02/01/17 17:36 19:17 23:20 WBC RBC Hgb Hct MCV MCH MCHC RDW Plt Count MPV Neut % (Auto) Lymph % (Auto) [place] % (Auto) Eos % (Auto) Baso % (Auto) Neut # (Auto) Lymph # (Auto) [place] # (Auto) Eos # (Auto) Baso # (Auto) Immature Gran % Nucleated RBC % Immature Gran # Nucleated RBCs # Immature Plt Fraction Sodium Potassium Chloride Carbon Dioxide Anion Gap BUN Creatinine GFR Calculation BUN/Creatinine Ratio Glucose POC Glucose 190 H 199 H 106 Calculated Osmolality Calcium Magnesium 02/02/17 02/02/17 02/02/17 05:32 07:07 08:57 WBC 7.3 RBC 2.92 L Hgb 8.4 L Hct 27.1 L MCV 92.8 MCH 29 MCHC 31.0 L RDW 15.7 Plt Count 361 MPV 9.7 Neut % (Auto) 65.7 Lymph % (Auto) 23.5 [place] % (Auto) 7.5 Eos % (Auto) 2.5 Baso % (Auto) 0.4 Neut # (Auto) 4.8 Lymph # (Auto) 1.7 [place] # (Auto) 0.6 Eos # (Auto) 0.2 Baso # (Auto) 0.0 Immature Gran % 0.4 Nucleated RBC % 0.0 Immature Gran # 0.03 Nucleated RBCs # 0.00 Immature Plt Fraction 0.0 Sodium 141 Potassium 4.0 Chloride 107 Carbon Dioxide 27 Anion Gap 11.0 BUN 11 Creatinine 0.90 GFR Calculation 101 BUN/Creatinine Ratio 12.00 Glucose 82 POC Glucose 95 Calculated Osmolality 278.3 Calcium 8.5 Magnesium 1.9 02/02/17 10:43 WBC RBC Hgb Hct MCV MCH MCHC RDW Plt Count MPV Neut % (Auto) Lymph % (Auto) [place] % (Auto) Eos % (Auto) Baso % (Auto) Neut # (Auto) Lymph # (Auto) [place] # (Auto) Eos # (Auto) Baso # (Auto) Immature Gran % Nucleated RBC % Immature Gran # Nucleated RBCs # Immature Plt Fraction Sodium Potassium Chloride Carbon Dioxide Anion Gap BUN Creatinine GFR Calculation BUN/Creatinine Ratio Glucose POC Glucose 198 H Calculated Osmolality Calcium Magnesium - Reports Microbiology: Microbiology 01/30/17 17:50 Wound Culture - Final Leg - Left Upper Pseudomonas aeruginosa Klebsiella pneumoniae 01/31/17 10:53 Blood Culture - Preliminary Blood No growth at 1 day 01/31/17 10:53 Blood Culture - Preliminary Blood No growth at 1 day
[2017-02-02] MEDS: CIPROFLOXACIN 500 MG TABLET PO SCH ×2 (12:59→21:40)
[2017-02-02] MEDS: CEFEPIME 2,000 MG in SODIUM CHLORIDE 0.9% 50 ML IV SCH ×2 (15:11→21:48)
[2017-02-02] MEDS: ONDANSETRON 4 MG/2 ML VIAL IV PRN (15:13)
--- NOTE | 2017-02-02 15:39 | Hospitalist Progress Note ---
Assessment and Plan (1) Wound dehiscence Status: Acute Assessment and plan: growing pseudomonas and klebsiella, cont meropenem and wound vac, cipro added Current Visit: Yes (2) Diabetes mellitus Status: Acute Assessment and plan: Continue glyburide, will add metformin Current Visit: No (3) Peripheral vascular disease Status: Acute Assessment and plan: continue to smoke Current Visit: No (4) Essential hypertension Status: Acute Assessment and plan: not controlled, change lisinopril to losartan/hctz Current Visit: No (5) Partial seizure Status: Acute Assessment and plan: cont keppra 500 mg po bid Current Visit: No (6) DVT (deep venous thrombosis) Status: Acute Assessment and plan: cont eliquis bid Current Visit: Yes Hospitalist: Subjective Interval history: no bowel movement in several days. appreciated Dr. Magali roblero, bs higher today, Exam - Constitutional Vitals: Period Temp Pulse Resp BP Sys/Chavarria Pulse Ox Last 24 Hr 96.3 F-99.0 F 82-100 14-20 131-162/70-90 96-100 Exam: Heart Rate-RRR] Lungs-[CTAB] GI-[+bs soft, NT] Ext-[wound dehiscence, wound vac Neuro [Motor 5/5], [alert and oriented times 3] psych [depressed mood and affect] General [no acute distress] Results - Labs CBC & BMP: 02/02/17 08:57 02/02/17 07:07 Lab Results: I have reviewed the past 24 hour labs Labs: Blood cultures negative no growth, wound culture growing heavy Pseudomonas sensitive to Cipro and meropenem and also growing Klebsiella which is also sensitive to Cipro and meropenem Quality Measures - VTE Contraindication to Pharmacological VTE Prophylaxis: Already on Theraputic Agent , No Prophylaxis Needed
[2017-02-02] MEDS: LOSARTAN/HCTZ 50-12.5 MG TABLET PO SCH (21:40)
[2017-02-02] MEDS: ATORVASTATIN 20 MG TABLET PO SCH (21:40)
[2017-02-03] MEDS: oxyCODONE/ACETAMINOPHEN 5-325 MG TABLET PO SCH ×4 (00:45→17:07)
[2017-02-03] MEDS: HYDROmorphone 2 MG/1 ML VIAL IV PRN ×4 (05:06→21:17)
[2017-02-03] MEDS: CEFEPIME 2,000 MG in SODIUM CHLORIDE 0.9% 50 ML IV SCH (05:32)
[2017-02-03] MEDS: ALUMINUM/MAGNES/SIMETH MAX STR 30 ML UDCUP PO SCH ×4 (05:33→22:09)
[2017-02-03] MEDS: INSULIN REGULAR 100 UNIT/ML SUBCUT SCH ×4 (09:19→21:15)
[2017-02-03] MEDS: metFORMIN 500 MG TABLET PO SCH (09:20)
[2017-02-03] MEDS: LOSARTAN/HCTZ 50-12.5 MG TABLET PO SCH ×2 (09:20→21:14)
[2017-02-03] MEDS: APIXABAN 5 MG TABLET PO SCH ×2 (09:21→20:04)
[2017-02-03] MEDS: CIPROFLOXACIN 500 MG TABLET PO SCH ×2 (09:21→20:03)
[2017-02-03] MEDS: FLUoxetine 20 MG CAPSULE PO SCH (09:21)
[2017-02-03] MEDS: glyBURIDE 5 MG TABLET PO SCH ×2 (09:22→17:07)
[2017-02-03] MEDS: PANTOPRAZOLE 40 MG TABLET PO SCH ×2 (09:22→20:04)
[2017-02-03] MEDS: ASPIRIN EC 81 MG TABLET PO SCH (09:22)
[2017-02-03] MEDS: METOCLOPRAMIDE 10 MG TABLET PO SCH ×4 (09:22→20:03)
[2017-02-03] MEDS: NICOTINE 21 MG/24 HR PATCH TRANSDERM SCH (09:23)
[2017-02-03] MEDS: levETIRAcetam 500 MG TABLET PO SCH ×2 (09:23→20:04)
[2017-02-03] MEDS: CARVEDILOL 25 MG TABLET PO SCH ×2 (09:23→21:14)
[2017-02-03] MEDS: POLYETHYLENE GLYCOL POWDER 17 GM PACK PO SCH (09:25)
[2017-02-03] MEDS: SODIUM HYPOCHLORITE 0.25% IRRIG 473 ML BOTTLE TOP SCH ×2 (09:26→21:19)
--- NOTE | 2017-02-03 10:28 | Event Note ---
Vital signs stable. Left wound VAC in place. There is no erythema. Patient has no complaints. Continue antibiotics through the weekend.
--- NOTE | 2017-02-03 12:47 | Hospitalist Progress Note ---
Assessment and Plan (1) Wound dehiscence Status: Acute Assessment and plan: growing pseudomonas and klebsiella, cont meropenem and cipro Current Visit: Yes (2) Diabetes mellitus Status: Acute Assessment and plan: Continue glyburide and metformin Current Visit: No (3) Peripheral vascular disease Status: Acute Assessment and plan: continue to smoke Current Visit: No (4) Essential hypertension Status: Acute Assessment and plan: cont losartan/hctz Current Visit: No (5) Partial seizure Status: Acute Assessment and plan: cont keppra 500 mg po bid Current Visit: No (6) DVT (deep venous thrombosis) Status: Acute Assessment and plan: cont eliquis bid Current Visit: Yes Hospitalist: Subjective Interval history: Patient still complaining of a lot of pain but I think she is drug-seeking. She had a bowel movement yesterday and we will continue giving her MiraLAX daily. Patient is not getting out of bed and ambulating at all. Exam - Constitutional Vitals: Period Temp Pulse Resp BP Sys/Chavarria Pulse Ox Last 24 Hr 96.6 F-98.8 F 80-91 16-20 134-158/67-87 93-99 Exam: Heart Rate-RRR] Lungs-[CTAB] GI-[+bs soft, NT] Ext-[wound dehiscence, wound vac Neuro [Motor 5/5], [alert and oriented times 3] psych [depressed mood and flat affect] General [no acute distress but always asking for narcotic] Results - Labs CBC & BMP: 02/02/17 08:57 02/02/17 07:07 Lab Results: I have reviewed the past 24 hour labs Labs: Pseudomonas and Klebsiella Quality Measures - VTE Contraindication to Pharmacological VTE Prophylaxis: Already on Theraputic Agent , No Prophylaxis Needed
[2017-02-03] MEDS: ATORVASTATIN 20 MG TABLET PO SCH (20:03)
[2017-02-04] MEDS: oxyCODONE/ACETAMINOPHEN 5-325 MG TABLET PO SCH ×5 (00:38→23:39)
[2017-02-04] MEDS: ALUMINUM/MAGNES/SIMETH MAX STR 30 ML UDCUP PO SCH ×4 (05:45→23:19)
[2017-02-04] MEDS: CIPROFLOXACIN 500 MG TABLET PO SCH ×2 (08:20→20:25)
[2017-02-04] MEDS: levETIRAcetam 500 MG TABLET PO SCH ×2 (08:21→20:25)
[2017-02-04] MEDS: PANTOPRAZOLE 40 MG TABLET PO SCH ×2 (08:21→20:25)
[2017-02-04] MEDS: ASPIRIN EC 81 MG TABLET PO SCH (08:21)
[2017-02-04] MEDS: LOSARTAN/HCTZ 50-12.5 MG TABLET PO SCH ×2 (08:21→20:25)
[2017-02-04] MEDS: CARVEDILOL 25 MG TABLET PO SCH ×2 (08:21→20:25)
[2017-02-04] MEDS: METOCLOPRAMIDE 10 MG TABLET PO SCH ×4 (08:22→20:26)
[2017-02-04] MEDS: FLUoxetine 20 MG CAPSULE PO SCH (08:22)
[2017-02-04] MEDS: metFORMIN 500 MG TABLET PO SCH ×2 (08:22→20:25)
[2017-02-04] MEDS: glyBURIDE 5 MG TABLET PO SCH ×2 (08:22→18:00)
[2017-02-04] MEDS: APIXABAN 5 MG TABLET PO SCH ×2 (08:25→20:33)
[2017-02-04] MEDS: NICOTINE 21 MG/24 HR PATCH TRANSDERM SCH (08:27)
[2017-02-04] MEDS: HYDROmorphone 2 MG/1 ML VIAL IV PRN ×3 (08:33→20:28)
[2017-02-04] MEDS: INSULIN REGULAR 100 UNIT/ML SUBCUT SCH ×4 (08:41→20:26)
[2017-02-04] MEDS: POLYETHYLENE GLYCOL POWDER 17 GM PACK PO SCH (09:44)
[2017-02-04] MEDS: SODIUM HYPOCHLORITE 0.25% IRRIG 473 ML BOTTLE TOP SCH ×2 (10:44→20:33)
--- NOTE | 2017-02-04 11:03 | Event Note ---
Afebrile vital signs stable. Patient is doing well and has no complaints. She is on antibiotics for her pseudomonal wound infection. Wound VAC is in place with a good seal. Continue antibiotics.
--- NOTE | 2017-02-04 12:17 | Hospitalist Progress Note ---
Assessment and Plan (1) Wound dehiscence Status: Acute Assessment and plan: growing pseudomonas and klebsiella, cont meropenem and cipro Current Visit: Yes (2) Diabetes mellitus Status: Acute Assessment and plan: Continue glyburide and increase metformin to bid Current Visit: No (3) Peripheral vascular disease Status: Acute Assessment and plan: continue to smoke Current Visit: No (4) Essential hypertension Status: Acute Assessment and plan: cont losartan/hctz and coreg Current Visit: No (5) Partial seizure Status: Acute Assessment and plan: cont keppra 500 mg po bid Current Visit: No (6) DVT (deep venous thrombosis) Status: Acute Assessment and plan: cont eliquis bid Current Visit: Yes Hospitalist: Subjective Interval history: Patient had a bowel movement yesterday. She continues to lay in bed and is not motivated to get out of bed. Exam - Constitutional Vitals: Period Temp Pulse Resp BP Sys/Chavarria Pulse Ox Last 24 Hr 96.8 F-98.8 F 79-91 16-18 132-156/77-95 93-98 Exam: Heart Rate-RRR] Lungs-[CTAB] GI-[+bs soft, NT] Ext-[wound dehiscence, wound vac Neuro [Motor 5/5], [alert and oriented times 3] psych [depressed mood and flat affect] General [no acute distress Results - Labs CBC & BMP: 02/02/17 08:57 02/02/17 07:07 Lab Results: I have reviewed the past 24 hour labs Labs: wound Growing Klebsiella and Pseudomonas Quality Measures - VTE Contraindication to Pharmacological VTE Prophylaxis: Already on Theraputic Agent , No Prophylaxis Needed
[2017-02-04] MEDS: CEFEPIME 2,000 MG in SODIUM CHLORIDE 0.9% 50 ML IV SCH ×2 (12:43→20:32)
[2017-02-04] MEDS: ATORVASTATIN 20 MG TABLET PO SCH (20:25)
[2017-02-05] MEDS: HYDROmorphone 2 MG/1 ML VIAL IV PRN ×4 (05:22→18:16)
[2017-02-05] MEDS: ALUMINUM/MAGNES/SIMETH MAX STR 30 ML UDCUP PO SCH ×4 (05:23→23:50)
[2017-02-05] MEDS: CEFEPIME 2,000 MG in SODIUM CHLORIDE 0.9% 50 ML IV SCH ×3 (05:24→21:29)
[2017-02-05] MEDS: oxyCODONE/ACETAMINOPHEN 5-325 MG TABLET PO SCH ×3 (06:25→18:07)
[2017-02-05] MEDS: INSULIN REGULAR 100 UNIT/ML SUBCUT SCH ×4 (09:58→21:24)
[2017-02-05] MEDS: glyBURIDE 5 MG TABLET PO SCH ×2 (10:00→18:05)
[2017-02-05] MEDS: ASPIRIN EC 81 MG TABLET PO SCH (10:00)
[2017-02-05] MEDS: METOCLOPRAMIDE 10 MG TABLET PO SCH ×4 (10:00→21:23)
[2017-02-05] MEDS: FLUoxetine 20 MG CAPSULE PO SCH (10:01)
[2017-02-05] MEDS: LOSARTAN/HCTZ 50-12.5 MG TABLET PO SCH ×2 (10:01→21:23)
[2017-02-05] MEDS: levETIRAcetam 500 MG TABLET PO SCH ×2 (10:01→21:23)
[2017-02-05] MEDS: CARVEDILOL 25 MG TABLET PO SCH ×2 (10:02→21:23)
[2017-02-05] MEDS: CIPROFLOXACIN 500 MG TABLET PO SCH ×2 (10:02→21:23)
[2017-02-05] MEDS: PANTOPRAZOLE 40 MG TABLET PO SCH ×2 (10:03→21:23)
[2017-02-05] MEDS: APIXABAN 5 MG TABLET PO SCH ×2 (10:03→21:22)
[2017-02-05] MEDS: NICOTINE 21 MG/24 HR PATCH TRANSDERM SCH (10:07)
[2017-02-05] MEDS: POLYETHYLENE GLYCOL POWDER 17 GM PACK PO SCH (10:08)
[2017-02-05] MEDS: metFORMIN 500 MG TABLET PO SCH ×2 (10:08→21:29)
--- NOTE | 2017-02-05 10:18 | Event Note ---
Ms. Desai is doing reasonably well with good control of her blood pressure and blood sugars are fair there is not appear to be any major ongoing infection with the leg wound VAC is in place and will change it tomorrow. I think we will probably be able to work toward her going home possibly on IV outpatient antibiotic
--- NOTE | 2017-02-05 10:22 | Event Note ---
Notes that there is a notation of Tamiko Desai having history of deep vein thrombosis there is in fact no history of deep vein thrombosis but there is in fact a left ventricular thrombus and she has had extensive aortoiliac occlusive disease that we have been able to treat with angioplasty and stenting. She is on Eliquis primarily for the left ventricular thrombus
--- NOTE | 2017-02-05 12:40 | Infectious Disease Progress ---
Assessment and Plan (1) Wound infection after surgery Status: Acute Assessment and plan: Left distal thigh wound infection, polymicrobial with Klebsiella and Pseudomonas. Reformations: 1. Continue cefepime and Cipro 2. Continue wound care. She is having wound VAC change tomorrow. Current Visit: Yes (2) Diabetes mellitus Status: Chronic Assessment and plan: Uncontrolled A1c of 7.8% Current Visit: No Qualifiers: Diabetes mellitus type: type 2 Diabetes mellitus complication status: without complication Diabetes mellitus mcfp insulin use: without mcfp use Qualified Code(s): E11.9 - Type 2 diabetes mellitus without complications (3) Hypertension Status: Chronic Current Visit: No Qualifiers: Hypertension type: essential hypertension Qualified Code(s): I10 - Essential (primary) hypertension (4) Severe peripheral arterial disease Status: Chronic Current Visit: No Infectious Disease - PN: Subj Interval history: Patient relatively okay, uneventful weekend. She has no fever. Tolerating antibiotics without nausea vomiting or diarrhea. Infectious Disease Exam (PN) - Constitutional Vitals: Temp Pulse Resp BP Pulse Ox 96.4 F L 92 H 18 138/70 99 02/05/17 11:22 02/05/17 11:22 02/05/17 11:22 02/05/17 11:22 02/05/17 11:22 General appearance: normal weight, no acute distress Exam: General appearance: no acute distress - Eye Eye exam: Present: EOMI. no icterus Pupils: Present: ANTIONETTE - ENT ENT exam: no oral exudates - Respiratory Respiratory exam: vesicular BS, no crepitations or wheezes - Cardiovascular Cardiovascular exam: regular rate and rhythm, no murmurs - GI/Abdominal GI/Abdominal exam: normal bowel sounds, soft, non-tender, no organomegaly or mass - Extremities Exam Extremities exam: no edema, wound VAC to left medial thigh wound - Skin Skin exam: no rash Results - Labs CBC & BMP: 02/02/17 08:57 02/02/17 07:07 Lab Results: I have reviewed the past 24 hour labs (Blood cultures negative) Quality Measures - VTE Contraindication to Pharmacological VTE Prophylaxis: Already on Theraputic Agent , No Prophylaxis Needed
[2017-02-05] MEDS: SODIUM HYPOCHLORITE 0.25% IRRIG 473 ML BOTTLE TOP SCH ×2 (12:45→21:24)
--- NOTE | 2017-02-05 12:48 | Hospitalist Progress Note ---
Assessment and Plan (1) Diabetes Status: Chronic Assessment and plan: The patient's blood glucose is elevated today her oral intake is improved. I am going to increase glipizide to 10 mg twice daily. Will recheck electrolytes tomorrow. Current Visit: No Qualifiers: Diabetes mellitus type: type 2 Diabetes mellitus complication detail: with unspecified neuropathy Diabetes mellitus ferry terminal agent insulin use: without custodial use Hospitalist: Subjective Interval history: Mrs. Desai is admitted to the hospital for infection of wound on the left thigh. We are consulted concerning diabetes. Fasting blood sugar this morning was 199. The patient is without abdominal pain today appetite is improved since last admission. Exam - Constitutional Vitals: Period Temp Pulse Resp BP Sys/Chavarria Pulse Ox Last 24 Hr 96.4 F-98.3 F 86-97 17-18 100-153/69-85 97-100 Exam: Constitutional System: Mild distress. No tremulousness. Head: Normocephalic, atraumatic. Ears, Nose and Throat System: No evidence of Otitis or Mastoiditis. No epistaxis or discharge Eyes System: Pupils equal, round, and reactive. Extraocular muscles intact. Neck: Supple, without adenopathy, No jugular venous distention. No thyromegaly , neck mass, or prior surgery apparent. Respiratory System: Chest clear to auscultation. Cardiovascular System: Heart with regular rate and rhythm. No murmur. GI System: Abdomen soft, nontender. Normo active bowel sounds present. Musculoskeletal System: limbs with wound VAC left thigh wound Neurological System: Decreased sensation peripherally consistent with diabetic peripheral neuropathy Capillary Refill: less than 3 sec Results - Labs CBC & BMP: 02/02/17 08:57 02/02/17 07:07 Lab Results: I have reviewed the past 24 hour labs Quality Measures - VTE Contraindication to Pharmacological VTE Prophylaxis: Already on Theraputic Agent , No Prophylaxis Needed
[2017-02-05] MEDS: ATORVASTATIN 20 MG TABLET PO SCH (21:23)
[2017-02-06] MEDS: oxyCODONE/ACETAMINOPHEN 5-325 MG TABLET PO SCH ×2 (01:19→05:58)
[2017-02-06] MEDS: HYDROmorphone 2 MG/1 ML VIAL IV PRN ×3 (01:20→10:10)
[2017-02-06] MEDS: ALUMINUM/MAGNES/SIMETH MAX STR 30 ML UDCUP PO SCH ×4 (04:27→21:59)
[2017-02-06] MEDS: CEFEPIME 2,000 MG in SODIUM CHLORIDE 0.9% 50 ML IV SCH ×3 (05:55→21:29)
[2017-02-06 07:12] LABS: Basophils % 0.3 % (0.0-0.8); Eosinophils # 0.3 10*3/uL (0.0-0.87); Eosinophils % 3.9 % (0.00-10.9); Hematocrit 27.5 VOL% (35.7-47.0); Hemoglobin 8.6 GM/DL (12.0-16.0); Immature Granulocytes % 0.4 %; Immature Granulocytes Absolute 0.03 #; Lymphocytes # 1.5 10*3/uL (1.4-4.0); Lymphocytes % 18.7 % (21.3-54.2); Mean Corpuscular HGB Conc 31.3 GM/DL (32-36); Mean Corpuscular Hemoglobin 28 PG (27-34); Mean Corpuscular Volume 88.1 FL (87-102); Mean Platelet Volume 9.8 FL (9.6-12.0); Monocytes # 0.9 10*3/uL (0.11-0.8); Monocytes % 11.8 % (1.7-12.7); Neutrophils # 5.2 10*3/uL (1.4-7.4); Neutrophils % 64.9 % (38.7-73.9); Platelet Count 405 T/CUMM (130-400); Red Blood Count 3.12 MC/CUMM (3.8-5.5); Red Cell Distribution Width 15.8 % (9.3-17.3)
[2017-02-06 07:54] LABS: Calcium 9.1 MG/DL (8.5-10.1); Magnesium 2.1 MG/DL (1.8-2.4); Osmolality,Calculated 277.8 MOS/KG (273-304)
[2017-02-06] MEDS: INSULIN REGULAR 100 UNIT/ML SUBCUT SCH ×4 (09:27→21:24)
[2017-02-06] MEDS: METOCLOPRAMIDE 10 MG TABLET PO SCH ×4 (09:38→21:23)
[2017-02-06] MEDS: LOSARTAN/HCTZ 50-12.5 MG TABLET PO SCH ×2 (09:38→21:24)
[2017-02-06] MEDS: APIXABAN 5 MG TABLET PO SCH ×2 (09:38→21:23)
[2017-02-06] MEDS: FLUoxetine 20 MG CAPSULE PO SCH (09:39)
[2017-02-06] MEDS: ASPIRIN EC 81 MG TABLET PO SCH (09:39)
[2017-02-06] MEDS: metFORMIN 500 MG TABLET PO SCH ×2 (09:39→21:23)
[2017-02-06] MEDS: CARVEDILOL 25 MG TABLET PO SCH ×2 (09:39→21:24)
[2017-02-06] MEDS: glyBURIDE 5 MG TABLET PO SCH ×2 (09:39→20:14)
[2017-02-06] MEDS: levETIRAcetam 500 MG TABLET PO SCH ×2 (09:40→21:22)
[2017-02-06] MEDS: PANTOPRAZOLE 40 MG TABLET PO SCH ×2 (09:40→21:23)
[2017-02-06] MEDS: CIPROFLOXACIN 500 MG TABLET PO SCH ×2 (09:41→21:22)
[2017-02-06] MEDS: NICOTINE 21 MG/24 HR PATCH TRANSDERM SCH (09:41)
[2017-02-06] MEDS: POLYETHYLENE GLYCOL POWDER 17 GM PACK PO SCH (09:42)
[2017-02-06] MEDS: SODIUM HYPOCHLORITE 0.25% IRRIG 473 ML BOTTLE TOP SCH (11:15)
[2017-02-06] MEDS: MORPHINE 2 MG/1 ML SYRINGE IV PRN ×2 (14:34→21:29)
--- NOTE | 2017-02-06 14:57 | Hospitalist Progress Note ---
Assessment and Plan (1) Diabetes Status: Chronic Assessment and plan: The patient's blood glucose was elevated yesterday has her oral intake is improved. I increased glipizide to 10 mg twice daily. Will recheck electrolytes tomorrow. Current Visit: No Qualifiers: Diabetes mellitus type: type 2 Diabetes mellitus complication detail: with unspecified neuropathy Diabetes mellitus penitentiary insulin use: without buttermaker continuous churn use Hospitalist: Subjective Interval history: Mrs. Desai continues therapy for left thigh wound. We are treating her for type 2 diabetes mellitus. The patient's wound VAC was changed yesterday. Exam - Constitutional Vitals: Period Temp Pulse Resp BP Sys/Chavarria Pulse Ox Last 24 Hr 97.4 F-98.8 F 83-95 12-18 103-154/64-88 93-100 Exam: Constitutional System: Mild distress. No tremulousness. Head: Normocephalic, atraumatic. Ears, Nose and Throat System: No evidence of Otitis or Mastoiditis. No epistaxis or discharge Eyes System: Pupils equal, round, and reactive. Extraocular muscles intact. Neck: Supple, without adenopathy, No jugular venous distention. No thyromegaly , neck mass, or prior surgery apparent. Respiratory System: Chest clear to auscultation. Cardiovascular System: Heart with regular rate and rhythm. No murmur. GI System: Abdomen soft, nontender. Normo active bowel sounds present. Musculoskeletal System: limbs with wound VAC left thigh wound Neurological System: Decreased sensation peripherally consistent with diabetic peripheral neuropathy Capillary Refill: less than 3 sec Results - Labs CBC & BMP: 02/06/17 06:08 02/06/17 06:08 Lab Results: I have reviewed the past 24 hour labs Quality Measures - VTE Contraindication to Pharmacological VTE Prophylaxis: Already on Theraputic Agent , No Prophylaxis Needed
--- NOTE | 2017-02-06 16:09 | Infectious Disease Progress ---
Assessment and Plan (1) Wound infection after surgery Status: Acute Assessment and plan: Left distal thigh wound infection, polymicrobial with Klebsiella and Pseudomonas. Reformations: Continue cefepime and Cipro while in hospital; she is doing well in these. When she is ready to go home I will let her go on oral ciprofloxacin for a few more days. Local wound care the most important. Current Visit: Yes (2) Diabetes mellitus Status: Chronic Assessment and plan: Uncontrolled A1c of 7.8% Current Visit: No Qualifiers: Diabetes mellitus type: type 2 Diabetes mellitus complication status: without complication Diabetes mellitus half-way insulin use: without operating theatre technician use Qualified Code(s): E11.9 - Type 2 diabetes mellitus without complications (3) Hypertension Status: Chronic Current Visit: No Qualifiers: Hypertension type: essential hypertension Qualified Code(s): I10 - Essential (primary) hypertension (4) Severe peripheral arterial disease Status: Chronic Current Visit: No Infectious Disease - PN: Subj Interval history: Patient doing generally okay except for pain to the left leg. This is chronic pain. She has not had any nausea vomiting or diarrhea and antibiotics. No fever. Infectious Disease Exam (PN) - Constitutional Vitals: Temp Pulse Resp BP Pulse Ox 98.8 F 86 12 154/84 93 L 02/06/17 11:00 02/06/17 11:00 02/06/17 11:00 02/06/17 11:00 02/06/17 11:00 General appearance: normal weight, no acute distress Exam: General appearance: no acute distress - Eye Eye exam: Present: EOMI. no icterus Pupils: Present: ANTIONETTE - ENT ENT exam: no oral exudates - Respiratory Respiratory exam: vesicular BS, no crepitations or wheezes - Cardiovascular Cardiovascular exam: regular rate and rhythm, no murmurs - GI/Abdominal GI/Abdominal exam: normal bowel sounds, soft, non-tender, no organomegaly or mass - Extremities Exam Extremities exam: no edema, wound VAC to left medial thigh wound. Foot of wound taken this morning otherwise mostly healthy pink, few small areas of slough - Skin Skin exam: no rash Results - Labs CBC & BMP: 02/06/17 06:08 02/06/17 06:08 Lab Results: I have reviewed the past 24 hour labs Quality Measures - VTE Contraindication to Pharmacological VTE Prophylaxis: Already on Theraputic Agent , No Prophylaxis Needed
[2017-02-06] MEDS: ATORVASTATIN 20 MG TABLET PO SCH (21:25)
[2017-02-07] MEDS: SODIUM HYPOCHLORITE 0.25% IRRIG 473 ML BOTTLE TOP SCH ×3 (02:35→20:52)
[2017-02-07] MEDS: ALUMINUM/MAGNES/SIMETH MAX STR 30 ML UDCUP PO SCH ×4 (05:18→21:31)
[2017-02-07] MEDS: CEFEPIME 2,000 MG in SODIUM CHLORIDE 0.9% 50 ML IV SCH ×3 (05:49→21:01)
[2017-02-07] MEDS: MORPHINE 2 MG/1 ML SYRINGE IV PRN ×5 (05:50→22:36)
[2017-02-07] MEDS: INSULIN REGULAR 100 UNIT/ML SUBCUT SCH ×4 (07:58→20:59)
[2017-02-07] MEDS: METOCLOPRAMIDE 10 MG TABLET PO SCH ×4 (07:59→20:59)
[2017-02-07] MEDS: glyBURIDE 5 MG TABLET PO SCH ×2 (07:59→17:54)
[2017-02-07] MEDS: FLUoxetine 20 MG CAPSULE PO SCH (08:03)
[2017-02-07] MEDS: levETIRAcetam 500 MG TABLET PO SCH ×2 (08:03→20:59)
[2017-02-07] MEDS: LOSARTAN/HCTZ 50-12.5 MG TABLET PO SCH ×2 (08:03→20:59)
[2017-02-07] MEDS: ASPIRIN EC 81 MG TABLET PO SCH (08:03)
[2017-02-07] MEDS: CIPROFLOXACIN 500 MG TABLET PO SCH ×2 (08:04→20:59)
[2017-02-07] MEDS: APIXABAN 5 MG TABLET PO SCH ×2 (08:04→20:59)
[2017-02-07] MEDS: CARVEDILOL 25 MG TABLET PO SCH ×2 (08:04→20:59)
[2017-02-07] MEDS: metFORMIN 500 MG TABLET PO SCH ×2 (08:04→20:59)
[2017-02-07] MEDS: PANTOPRAZOLE 40 MG TABLET PO SCH ×2 (08:04→20:59)
[2017-02-07] MEDS: NICOTINE 21 MG/24 HR PATCH TRANSDERM SCH (08:06)
[2017-02-07] MEDS: POLYETHYLENE GLYCOL POWDER 17 GM PACK PO SCH (08:07)
[2017-02-07] MEDS: oxyCODONE/ACETAMINOPHEN 5-325 MG TABLET PO PRN ×2 (08:39→21:36)
[2017-02-07] MEDS ORDERED: DEXTROSE 50% 25 GM/50 ML VIAL IV PRN (10:30)
--- NOTE | 2017-02-07 11:10 | Event Note ---
Ms. Desai is afebrile her leg looks generally good she states she cannot walk well with physical therapy and walking she states she is getting good drop on the right side certain how much of this is physical and how much is associated with what appears to be a significant depression. I think it when reaching a point for management of the wound and will be easily done as an outpatient with home health Cipro. Is not sure how well we are going to manage her neurologic status. I asked Dr. Renetta mansfield to reevaluate her lower leg to determine how much neuropathy there is presence
--- NOTE | 2017-02-07 11:30 | Hospitalist Progress Note ---
Assessment and Plan (1) Diabetes Status: Chronic Assessment and plan: The patient's blood glucose was elevated yesterday has her oral intake is improved. I increased glipizide to 10 mg twice daily. Will recheck electrolytes tomorrow. 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 Desai continues on wound care for dehiscence of left thigh. Dr. uYng recommends outpatient Cipro oral medication. Exam - Constitutional Vitals: Period Temp Pulse Resp BP Sys/Chavarria Pulse Ox Last 24 Hr 97.0 F-100.0 F 91-102 16-20 115-161/71-95 96-99 Exam: Constitutional System: Mild distress. No tremulousness. Head: Normocephalic, atraumatic. Ears, Nose and Throat System: No evidence of Otitis or Mastoiditis. No epistaxis or discharge Eyes System: Pupils equal, round, and reactive. Extraocular muscles intact. Neck: Supple, without adenopathy, No jugular venous distention. No thyromegaly , neck mass, or prior surgery apparent. Respiratory System: Chest clear to auscultation. Cardiovascular System: Heart with regular rate and rhythm. No murmur. GI System: Abdomen soft, nontender. Normo active bowel sounds present. Musculoskeletal System: limbs with wound VAC left thigh wound Neurological System: Decreased sensation peripherally consistent with diabetic peripheral neuropathy Capillary Refill: less than 3 sec Results - Labs CBC & BMP: 02/06/17 06:08 02/06/17 06:08 Lab Results: I have reviewed the past 24 hour labs Quality Measures - VTE Contraindication to Pharmacological VTE Prophylaxis: Already on Theraputic Agent , No Prophylaxis Needed
--- NOTE | 2017-02-07 12:44 | Infectious Disease Progress ---
Assessment and Plan (1) Wound infection after surgery Status: Acute Assessment and plan: Left distal thigh wound infection, polymicrobial with Klebsiella and Pseudomonas. When appears healthier in general since admission. Reformations: Continue cefepime and Cipro while in hospital; she can continue ciprofloxacin for a few more days after discharge. Do not anticipate prolonged course of antibiotic therapy given how well the wound looks. 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 No nausea vomiting or diarrhea on antibiotic. Infectious Disease Exam (PN) - Constitutional Vitals: Temp Pulse Resp BP Pulse Ox 97.0 F L 96 H 20 115/73 99 02/07/17 10:55 02/07/17 10:55 02/07/17 10:55 02/07/17 10:55 02/07/17 10:55 General appearance: normal weight, no acute distress Exam: General appearance: no acute distress, just a bit drowsy presumably from Dilaudid - Eye Eye exam: Present: EOMI. no icterus Pupils: Present: ANTIONETTE - ENT ENT exam: no oral exudates - Respiratory Respiratory exam: vesicular BS, no crepitations or wheezes - Cardiovascular Cardiovascular exam: regular rate and rhythm, no murmurs - GI/Abdominal GI/Abdominal exam: normal bowel sounds, soft, non-tender, no organomegaly or mass - Extremities Exam Extremities exam: no edema, wound VAC to left medial thigh wound. - Skin Skin exam: no rash Results - Labs CBC & BMP: 02/06/17 06:08 02/06/17 06:08 Lab Results: I have reviewed the past 24 hour labs Quality Measures - VTE Contraindication to Pharmacological VTE Prophylaxis: Already on Theraputic Agent , No Prophylaxis Needed
[2017-02-07] MEDS: ATORVASTATIN 20 MG TABLET PO SCH (20:59)
[2017-02-08] MEDS: ALUMINUM/MAGNES/SIMETH MAX STR 30 ML UDCUP PO SCH ×4 (03:51→21:32)
[2017-02-08] MEDS: CEFEPIME 2,000 MG in SODIUM CHLORIDE 0.9% 50 ML IV SCH ×3 (05:00→20:59)
[2017-02-08] MEDS: MORPHINE 2 MG/1 ML SYRINGE IV PRN ×5 (05:42→21:33)
[2017-02-08] MEDS: METOCLOPRAMIDE 10 MG TABLET PO SCH ×4 (07:27→20:54)
[2017-02-08] MEDS: glyBURIDE 5 MG TABLET PO SCH ×2 (07:27→17:04)
[2017-02-08] MEDS: INSULIN REGULAR 100 UNIT/ML SUBCUT SCH ×4 (07:28→20:55)
[2017-02-08] MEDS: CIPROFLOXACIN 500 MG TABLET PO SCH ×2 (08:51→20:54)
[2017-02-08] MEDS: ASPIRIN EC 81 MG TABLET PO SCH (08:51)
[2017-02-08] MEDS: CARVEDILOL 25 MG TABLET PO SCH ×2 (08:51→20:54)
[2017-02-08] MEDS: FLUoxetine 20 MG CAPSULE PO SCH (08:51)
[2017-02-08] MEDS: LOSARTAN/HCTZ 50-12.5 MG TABLET PO SCH ×2 (08:51→20:54)
[2017-02-08] MEDS: levETIRAcetam 500 MG TABLET PO SCH ×2 (08:52→20:54)
[2017-02-08] MEDS: APIXABAN 5 MG TABLET PO SCH ×2 (08:52→20:55)
[2017-02-08] MEDS: metFORMIN 500 MG TABLET PO SCH ×2 (08:52→20:55)
[2017-02-08] MEDS: PANTOPRAZOLE 40 MG TABLET PO SCH ×2 (08:52→20:54)
[2017-02-08] MEDS: SODIUM HYPOCHLORITE 0.25% IRRIG 473 ML BOTTLE TOP SCH ×2 (08:53→20:58)
[2017-02-08] MEDS: POLYETHYLENE GLYCOL POWDER 17 GM PACK PO SCH (08:54)
[2017-02-08] MEDS: NICOTINE 21 MG/24 HR PATCH TRANSDERM SCH (09:40)
--- NOTE | 2017-02-08 09:40 | Event Note ---
My thoughts are to change Ms. Desai wound VAC tomorrow and then plan discharge with home health aiding her in wound VAC changes and probably continue Cipro just a few more days
[2017-02-08] MEDS: ONDANSETRON 4 MG/2 ML VIAL IV PRN (09:43)
--- NOTE | 2017-02-08 14:51 | Event Note ---
Ms. Desai had a previous left foot drop but now seems to be developing a right foot drop as well she was at rehab a couple of weeks ago when I asked Dr. Jackson might reevaluate the apparent progressive nature of her foot drop
--- NOTE | 2017-02-08 16:05 | Hospitalist Progress Note ---
Assessment and Plan (1) Diabetes Status: Chronic Assessment and plan: The patient's blood glucose was elevated yesterday has her oral intake is improved. I increased glipizide to 10 mg twice daily a couple of days ago. I am going to increase Glucophage to 1000 mg twice daily. I will recheck electrolytes tomorrow. 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 Desai continues on antibiotic and wound care for left thigh wound. Dr. Daily has discovered worsening foot drop. The patient's oral intake of carbohydrate is improving as she feels better. I am going to increase her Glucophage today Exam - Constitutional Vitals: Period Temp Pulse Resp BP Sys/Chavarria Pulse Ox Last 24 Hr 96.5 F-98.0 F 83-93 16-20 91-159/62-90 95-99 Exam: Constitutional System: Mild distress. No tremulousness. Head: Normocephalic, atraumatic. Ears, Nose and Throat System: No evidence of Otitis or Mastoiditis. No epistaxis or discharge Eyes System: Pupils equal, round, and reactive. Extraocular muscles intact. Neck: Supple, without adenopathy, No jugular venous distention. No thyromegaly , neck mass, or prior surgery apparent. Respiratory System: Chest clear to auscultation. Cardiovascular System: Heart with regular rate and rhythm. No murmur. GI System: Abdomen soft, nontender. Normo active bowel sounds present. Musculoskeletal System: limbs with wound VAC left thigh wound Neurological System: Decreased sensation peripherally consistent with diabetic peripheral neuropathy Capillary Refill: less than 3 sec Results - Labs CBC & BMP: 02/06/17 06:08 02/06/17 06:08 Lab Results: I have reviewed the past 24 hour labs Quality Measures - VTE Contraindication to Pharmacological VTE Prophylaxis: Already on Theraputic Agent , No Prophylaxis Needed
[2017-02-08] MEDS: ATORVASTATIN 20 MG TABLET PO SCH (20:54)
[2017-02-09 04:33] LABS: Calcium 9.2 MG/DL (8.5-10.1); Magnesium 1.8 MG/DL (1.8-2.4); Potassium 4.1 MMOL/L (3.5-5.1)
[2017-02-09] MEDS: ALUMINUM/MAGNES/SIMETH MAX STR 30 ML UDCUP PO SCH ×4 (05:22→21:59)
[2017-02-09] MEDS: CEFEPIME 2,000 MG in SODIUM CHLORIDE 0.9% 50 ML IV SCH (05:26)
[2017-02-09] MEDS: MORPHINE 2 MG/1 ML SYRINGE IV PRN ×4 (05:26→18:32)
--- NOTE | 2017-02-09 08:52 | Event Note ---
Remove the wound VAC and changing it today on Ms. Desai leg and it is cleaning up very nicely with no sign of ongoing infection I am going to stop the Merrem today but continue the Cipro for now. She is not a candidate for wound VAC at home and she has clearly demonstrated that she is not capable of taking care of this wound at home herself. She has been in and out of the hospital approximately every 2-3 weeks the entire summer. I am asking major case detective to see if we can get a transfer to the swing bed to continue the wound VAC and wound care.
[2017-02-09] MEDS: INSULIN REGULAR 100 UNIT/ML SUBCUT SCH ×4 (10:25→21:01)
[2017-02-09] MEDS: CIPROFLOXACIN 500 MG TABLET PO SCH ×2 (10:26→21:00)
[2017-02-09] MEDS: levETIRAcetam 500 MG TABLET PO SCH ×2 (10:27→21:00)
[2017-02-09] MEDS: FLUoxetine 20 MG CAPSULE PO SCH (10:28)
[2017-02-09] MEDS: ASPIRIN EC 81 MG TABLET PO SCH (10:28)
[2017-02-09] MEDS: CARVEDILOL 25 MG TABLET PO SCH ×2 (10:28→21:00)
[2017-02-09] MEDS: LOSARTAN/HCTZ 50-12.5 MG TABLET PO SCH ×2 (10:28→21:00)
[2017-02-09] MEDS: glyBURIDE 5 MG TABLET PO SCH ×2 (10:28→18:26)
[2017-02-09] MEDS: metFORMIN 500 MG TABLET PO SCH ×2 (10:29→21:00)
[2017-02-09] MEDS: PANTOPRAZOLE 40 MG TABLET PO SCH ×2 (10:30→21:00)
[2017-02-09] MEDS: APIXABAN 5 MG TABLET PO SCH ×2 (10:30→21:01)
[2017-02-09] MEDS: POLYETHYLENE GLYCOL POWDER 17 GM PACK PO SCH (10:31)
[2017-02-09] MEDS: METOCLOPRAMIDE 10 MG TABLET PO SCH ×4 (10:31→21:00)
[2017-02-09] MEDS: NICOTINE 21 MG/24 HR PATCH TRANSDERM SCH (10:33)
--- NOTE | 2017-02-09 11:17 | Infectious Disease Progress ---
Assessment and Plan (1) Wound infection after surgery Status: Acute Assessment and plan: Left distal thigh wound infection, polymicrobial with Klebsiella and Pseudomonas. I am told that the wound looks much better than when she came in, healthy pink granulating tissue. Reformations: Agree with discontinuation of cefepime. Patient will continue with Cipro for a few more days, maybe a week maximum. I will sign off now. Call again as needed. 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 No nausea vomiting or diarrhea and antibiotics. No fever. Infectious Disease Exam (PN) - Constitutional Vitals: Temp Pulse Resp BP Pulse Ox 97.7 F 84 14 165/83 94 L 02/09/17 07:16 02/09/17 07:16 02/09/17 07:16 02/09/17 07:16 02/09/17 07:16 General appearance: normal weight, no acute distress Exam: General appearance: no acute distress, just a bit drowsy presumably from Dilaudid - Eye Eye exam: Present: EOMI. no icterus Pupils: Present: ANTIONETTE - ENT ENT exam: no oral exudates - Extremities Exam Extremities exam: no edema, wound VAC to left medial thigh wound Without surrounding induration - Skin Skin exam: no rash Results - Labs CBC & BMP: 02/06/17 06:08 02/09/17 03:01 Lab Results: I have reviewed the past 24 hour labs Quality Measures - VTE Contraindication to Pharmacological VTE Prophylaxis: Already on Theraputic Agent , No Prophylaxis Needed
[2017-02-09] MEDS: SODIUM HYPOCHLORITE 0.25% IRRIG 473 ML BOTTLE TOP SCH ×2 (11:51→21:01)
--- NOTE | 2017-02-09 13:56 | Hospitalist Progress Note ---
Assessment and Plan (1) Diabetes Status: Chronic Assessment and plan: The patient's blood glucose was elevated yesterday has her oral intake is improved. I increased glipizide to 10 mg twice daily a couple of days ago. I increased Glucophage to 1000 mg twice daily. I will add Lantus this afternoon and recheck glucometers tomorrow. Current Visit: No Qualifiers: Diabetes mellitus type: type 2 Diabetes mellitus complication detail: with unspecified neuropathy Diabetes mellitus half-way insulin use: without watermaster use Hospitalist: Subjective Interval history: The patient has continued improvement in her appetite. Glucose is increasing. I will continue the twice daily glyburide plus Metformin and now add Lantus. Exam - Constitutional Vitals: Period Temp Pulse Resp BP Sys/Chavarria Pulse Ox Last 24 Hr 97.6 F-98.3 F 84-90 14-18 130-165/73-90 94-100 Exam: Constitutional System: Mild distress. No tremulousness. Head: Normocephalic, atraumatic. Ears, Nose and Throat System: No evidence of Otitis or Mastoiditis. No epistaxis or discharge Eyes System: Pupils equal, round, and reactive. Extraocular muscles intact. Neck: Supple, without adenopathy, No jugular venous distention. No thyromegaly , neck mass, or prior surgery apparent. Respiratory System: Chest clear to auscultation. Cardiovascular System: Heart with regular rate and rhythm. No murmur. GI System: Abdomen soft, nontender. Normo active bowel sounds present. Musculoskeletal System: limbs with wound VAC left thigh wound Neurological System: Decreased sensation peripherally consistent with diabetic peripheral neuropathy Capillary Refill: less than 3 sec Results - Labs CBC & BMP: 02/06/17 06:08 02/09/17 03:01 Lab Results: I have reviewed the past 24 hour labs Quality Measures - VTE Contraindication to Pharmacological VTE Prophylaxis: Already on Theraputic Agent , No Prophylaxis Needed
[2017-02-09] MEDS: ATORVASTATIN 20 MG TABLET PO SCH (21:00)
[2017-02-09] MEDS: INSULIN GLARGINE 100 UNIT/ML SUBCUT SCH (21:05)
[2017-02-10] MEDS: MORPHINE 2 MG/1 ML SYRINGE IV PRN ×5 (03:29→23:46)
[2017-02-10] MEDS: ALUMINUM/MAGNES/SIMETH MAX STR 30 ML UDCUP PO SCH ×4 (06:13→22:32)
[2017-02-10] MEDS: POLYETHYLENE GLYCOL POWDER 17 GM PACK PO SCH (09:05)
[2017-02-10] MEDS: glyBURIDE 5 MG TABLET PO SCH ×2 (09:05→17:24)
[2017-02-10] MEDS: NICOTINE 21 MG/24 HR PATCH TRANSDERM SCH (09:11)
[2017-02-10] MEDS: INSULIN REGULAR 100 UNIT/ML SUBCUT SCH ×4 (09:12→22:16)
[2017-02-10] MEDS: METOCLOPRAMIDE 10 MG TABLET PO SCH ×4 (09:13→22:16)
[2017-02-10] MEDS: PANTOPRAZOLE 40 MG TABLET PO SCH ×2 (09:13→22:15)
[2017-02-10] MEDS: ASPIRIN EC 81 MG TABLET PO SCH (09:13)
[2017-02-10] MEDS: LOSARTAN/HCTZ 50-12.5 MG TABLET PO SCH ×2 (09:13→22:15)
[2017-02-10] MEDS: CARVEDILOL 25 MG TABLET PO SCH ×2 (09:14→22:16)
[2017-02-10] MEDS: metFORMIN 500 MG TABLET PO SCH ×2 (09:14→22:15)
[2017-02-10] MEDS: levETIRAcetam 500 MG TABLET PO SCH ×2 (09:14→22:15)
[2017-02-10] MEDS: FLUoxetine 20 MG CAPSULE PO SCH (09:14)
[2017-02-10] MEDS: APIXABAN 5 MG TABLET PO SCH ×2 (09:15→22:16)
[2017-02-10] MEDS: CIPROFLOXACIN 500 MG TABLET PO SCH ×2 (09:15→22:16)
--- NOTE | 2017-02-10 10:55 | Event Note ---
This patient was readmitted to the hospital with a wound on her left below-knee bypass site that is now being treated with wound VAC. She has no complaints today and her vital signs are unremarkable. Her VAC has a good seal with minimal drainage that does not appear infected. The site on the leg itself is clean and dry.
[2017-02-10] MEDS: SODIUM HYPOCHLORITE 0.25% IRRIG 473 ML BOTTLE TOP SCH ×2 (13:50→22:16)
--- NOTE | 2017-02-10 14:09 | Hospitalist Progress Note ---
Assessment and Plan (1) Diabetes Status: Chronic Assessment and plan: The patient's blood glucose was elevated yesterday has her oral intake is improved. I increased glipizide to 10 mg twice daily a couple of days ago. I increased Glucophage to 1000 mg twice daily. Morning glucose now improving after Lantus was started. Will recheck electrolytes in the morning. Current Visit: No Qualifiers: Diabetes mellitus type: type 2 Diabetes mellitus complication detail: with unspecified neuropathy Diabetes mellitus residential insulin use: without residential use Hospitalist: Subjective Interval history: The patient is resting quietly. Wound VAC functional. Oral intake consistent. Exam - Constitutional Vitals: Period Temp Pulse Resp BP Sys/Chavarria Pulse Ox Last 24 Hr 97.1 F-98.4 F 81-96 18-18 132-161/71-90 95-100 Exam: Constitutional System: Mild distress. No tremulousness. Head: Normocephalic, atraumatic. Ears, Nose and Throat System: No evidence of Otitis or Mastoiditis. No epistaxis or discharge Eyes System: Pupils equal, round, and reactive. Extraocular muscles intact. Neck: Supple, without adenopathy, No jugular venous distention. No thyromegaly , neck mass, or prior surgery apparent. Respiratory System: Chest clear to auscultation. Cardiovascular System: Heart with regular rate and rhythm. No murmur. GI System: Abdomen soft, nontender. Normo active bowel sounds present. Musculoskeletal System: limbs with wound VAC left thigh wound Neurological System: Decreased sensation peripherally consistent with diabetic peripheral neuropathy Capillary Refill: less than 3 sec Results - Labs CBC & BMP: 02/06/17 06:08 02/09/17 03:01 Lab Results: I have reviewed the past 24 hour labs Quality Measures - VTE Contraindication to Pharmacological VTE Prophylaxis: Already on Theraputic Agent , No Prophylaxis Needed
[2017-02-10] MEDS: ATORVASTATIN 20 MG TABLET PO SCH (22:16)
[2017-02-10] MEDS: INSULIN GLARGINE 100 UNIT/ML SUBCUT SCH (22:17)
[2017-02-11] MEDS: ALUMINUM/MAGNES/SIMETH MAX STR 30 ML UDCUP PO SCH ×3 (04:50→15:39)
[2017-02-11] MEDS: MORPHINE 2 MG/1 ML SYRINGE IV PRN ×4 (06:35→21:12)
--- NOTE | 2017-02-11 09:40 | Event Note ---
No events overnight. Patient has no complaints today. Wound VAC has a good seal with minimal additional serosanguineous output. The VAC dressing site on the left leg is clean and dry with no evidence of infection.
[2017-02-11] MEDS: NICOTINE 21 MG/24 HR PATCH TRANSDERM SCH (09:43)
[2017-02-11] MEDS: METOCLOPRAMIDE 10 MG TABLET PO SCH ×4 (09:45→21:07)
[2017-02-11] MEDS: APIXABAN 5 MG TABLET PO SCH ×2 (09:46→21:07)
[2017-02-11] MEDS: CIPROFLOXACIN 500 MG TABLET PO SCH ×2 (09:46→21:07)
[2017-02-11] MEDS: ASPIRIN EC 81 MG TABLET PO SCH (09:46)
[2017-02-11] MEDS: levETIRAcetam 500 MG TABLET PO SCH ×2 (09:46→21:07)
[2017-02-11] MEDS: FLUoxetine 20 MG CAPSULE PO SCH (09:46)
[2017-02-11] MEDS: PANTOPRAZOLE 40 MG TABLET PO SCH ×2 (09:47→21:07)
[2017-02-11] MEDS: metFORMIN 500 MG TABLET PO SCH ×2 (09:47→21:07)
[2017-02-11] MEDS: LOSARTAN/HCTZ 50-12.5 MG TABLET PO SCH ×2 (09:47→21:07)
[2017-02-11] MEDS: CARVEDILOL 25 MG TABLET PO SCH ×2 (09:48→21:07)
[2017-02-11] MEDS: INSULIN REGULAR 100 UNIT/ML SUBCUT SCH ×4 (09:48→21:07)
[2017-02-11] MEDS: SODIUM HYPOCHLORITE 0.25% IRRIG 473 ML BOTTLE TOP SCH ×2 (09:49→21:23)
[2017-02-11] MEDS: glyBURIDE 5 MG TABLET PO SCH ×2 (09:49→18:39)
[2017-02-11] MEDS: POLYETHYLENE GLYCOL POWDER 17 GM PACK PO SCH (09:50)
--- NOTE | 2017-02-11 13:10 | Hospitalist Progress Note ---
Assessment and Plan (1) Diabetes Status: Chronic Assessment and plan: The patient's blood glucose was elevated yesterday has her oral intake is improved. I increased glipizide to 10 mg twice daily a couple of days ago. I increased Glucophage to 1000 mg twice daily. Morning glucose now improving after Lantus was started. Blood glucose was 101 this morning. Current Visit: No Qualifiers: Diabetes mellitus type: type 2 Diabetes mellitus complication detail: with unspecified neuropathy Diabetes mellitus alf insulin use: without alf use Hospitalist: Subjective Interval history: Mrs. Desai is resting quietly in bed this morning. She continues with wound VAC to the left thigh wound and IV antibiotic. Exam - Constitutional Vitals: Period Temp Pulse Resp BP Sys/Chavarria Pulse Ox Last 24 Hr 97.0 F-99.3 F 84-100 17-19 120-162/66-92 96-99 Exam: Constitutional System: Mild distress. No tremulousness. Head: Normocephalic, atraumatic. Ears, Nose and Throat System: No evidence of Otitis or Mastoiditis. No epistaxis or discharge Eyes System: Pupils equal, round, and reactive. Extraocular muscles intact. Neck: Supple, without adenopathy, No jugular venous distention. No thyromegaly , neck mass, or prior surgery apparent. Respiratory System: Chest clear to auscultation. Cardiovascular System: Heart with regular rate and rhythm. No murmur. GI System: Abdomen soft, nontender. Normo active bowel sounds present. Musculoskeletal System: limbs with wound VAC left thigh wound Neurological System: Decreased sensation peripherally consistent with diabetic peripheral neuropathy Capillary Refill: less than 3 sec Results - Labs CBC & BMP: 02/06/17 06:08 02/09/17 03:01 Lab Results: I have reviewed the past 24 hour labs Quality Measures - VTE Contraindication to Pharmacological VTE Prophylaxis: Already on Theraputic Agent , No Prophylaxis Needed
[2017-02-11] MEDS: oxyCODONE/ACETAMINOPHEN 5-325 MG TABLET PO PRN (18:36)
[2017-02-11] MEDS: ATORVASTATIN 20 MG TABLET PO SCH (21:07)
[2017-02-11] MEDS: INSULIN GLARGINE 100 UNIT/ML SUBCUT SCH (21:08)
[2017-02-12] MEDS: ALUMINUM/MAGNES/SIMETH MAX STR 30 ML UDCUP PO SCH ×5 (02:45→21:42)
[2017-02-12] MEDS: MORPHINE 2 MG/1 ML SYRINGE IV PRN ×3 (05:15→15:38)
[2017-02-12] MEDS: INSULIN REGULAR 100 UNIT/ML SUBCUT SCH ×4 (07:43→21:38)
[2017-02-12] MEDS: APIXABAN 5 MG TABLET PO SCH ×2 (08:30→21:35)
[2017-02-12] MEDS: levETIRAcetam 500 MG TABLET PO SCH ×2 (08:30→21:34)
[2017-02-12] MEDS: FLUoxetine 20 MG CAPSULE PO SCH (08:30)
[2017-02-12] MEDS: LOSARTAN/HCTZ 50-12.5 MG TABLET PO SCH ×2 (08:31→21:33)
[2017-02-12] MEDS: metFORMIN 500 MG TABLET PO SCH ×2 (08:31→21:33)
[2017-02-12] MEDS: METOCLOPRAMIDE 10 MG TABLET PO SCH ×4 (08:31→21:42)
[2017-02-12] MEDS: ASPIRIN EC 81 MG TABLET PO SCH (08:31)
[2017-02-12] MEDS: glyBURIDE 5 MG TABLET PO SCH ×2 (08:31→16:48)
[2017-02-12] MEDS: CIPROFLOXACIN 500 MG TABLET PO SCH ×2 (08:32→21:35)
[2017-02-12] MEDS: oxyCODONE/ACETAMINOPHEN 5-325 MG TABLET PO PRN ×2 (08:32→21:38)
[2017-02-12] MEDS: SODIUM HYPOCHLORITE 0.25% IRRIG 473 ML BOTTLE TOP SCH ×2 (08:33→21:38)
[2017-02-12] MEDS: PANTOPRAZOLE 40 MG TABLET PO SCH ×2 (08:33→21:35)
[2017-02-12] MEDS: CARVEDILOL 25 MG TABLET PO SCH ×2 (08:33→21:38)
[2017-02-12] MEDS: POLYETHYLENE GLYCOL POWDER 17 GM PACK PO SCH (08:34)
[2017-02-12] MEDS: NICOTINE 21 MG/24 HR PATCH TRANSDERM SCH (08:36)
--- NOTE | 2017-02-12 09:17 | Neurology Consult Note ---
History of Present Illness History of present illness: Ms. Desai is a 41 year old black female with a history of smoking, GERD, hypertension, PVD, CVA, peripheral neuropathy, diabetes, dyslipidemia, and DVTs reported to the ED on 01/30 for further evaluation of left lower thigh swelling with drainage and fever. She was just recently discharged 3 days ago after being admitted and treated for abdominal pain. She is also recently s/p a left femoral-popliteal bypass in November and had complications from that surgery. Yesterday she started complaining of difficulty with right foot dorsiflexion. She reported that her left foot has a foot drop for last couple of months however her right foot is new onset. Patient has not been able to walk for a while. Presentation does suggestive of severe peripheral neuropathy. Home Medications Medication Instructions Recorded Confirmed Type Atorvastatin [Lipitor] 20 mg PO BEDTIME #30 tablet 07/29/15 01/31/17 Rx glyBURIDE [Diabeta] 5 mg PO BID W/MEALS #60 tablet 07/29/15 01/31/17 Rx Nicotine 21 mg/24 Hr Patch 1 patch TRANSDERM DAILY #30 patch 12/01/16 01/31/17 Rx [Nicoderm CQ 21 mg/24 hr Patch] Carvedilol [Coreg] 25 mg PO BID #60 tablet 12/08/16 01/31/17 Rx Apixaban [Eliquis] 5 mg PO BID #60 tablet 12/22/16 01/31/17 Rx Alum/Mag/Simeth Max Str Liquid 30 ml PO Q6H PRN 12/26/16 01/31/17 Rx [Mylanta Max Strength Liquid] metFORMIN [Glucophage] 500 mg PO DAILY W/BREAKFAST tablet 12/26/16 01/31/17 Rx Aspirin EC Tab 81 mg PO QAM 01/09/17 01/31/17 History Docusate Sodium Cap [Colace Cap] 100 mg PO BID PRN 01/09/17 01/31/17 History FLUoxetine [PROzac] 20 mg PO QAM 01/09/17 01/31/17 History Lisinopril [Prinivil] 40 mg PO QAM 01/19/17 01/31/17 History HYDROcodone/ACETAMIN 7.5-325 1 tablet PO Q4H PRN #30 tablet 01/26/17 01/31/17 Rx [[place] 7.5-325] Pantoprazole Tab [Protonix Tab] 40 mg PO BID #60 tablet 01/26/17 01/31/17 Rx cloNIDine TAB [Catapres Tab] 0.3 mg PO BID #60 tablet 01/26/17 01/31/17 Rx levETIRAcetam TAB [Keppra Tab] 500 mg PO BID #60 tablet 01/26/17 01/31/17 Rx Acetaminophen Tab [Tylenol Tab] 1,000 mg PO Q6HR PRN 01/31/17 01/31/17 History Metoclopramide Tab [Reglan Tab] 10 mg PO QID W/MEALS & HS 01/31/17 01/31/17 History Oxycodone HCl/Acetaminophen 1 tablet PO Q6HR 01/31/17 01/31/17 History [Oxycodone-Acetaminophen 5-325] Allergies Allergy/AdvReac Type Severity Reaction Status Date / Time No Known Allergies Allergy Verified 01/30/17 17:05 12 point system: reviewed and no additional remarkable complaints except as stated Medical,Surgical,& Family Hx - Medical History Cardio: History of: Hypertension, PVD (VASCULAR STENTS 2017 TO LEFT LEG), Cardiovascular Problems (Left apical thrombus) Neurology: History of: Cerebrovascular Accident (2015- right side deficit), Peripheral Neuropathy No history of: Seizures HEENT: History of: Eye Problem (GLASSES) Endocrine: History of: Diabetes Mellitus (NIDDM) (since 1996, states didn't take insulin only pills at home), Dyslipidemia Respiratory: No history of: Respiratory Problems Genitourinary: History of: Recurring Urinary Tract Infections Gastrointestinal: History of: GERD (Since 2006), Pancreatitis (2006) Musculoskeletal: History of: Amputation (5th toe on left foot), Back/Neck Problems, Musculoskeletal Problems (ARTHRITIS.) Hematology: History of: Clotting Problems (Blood clots in legs & heart- december 2016) Reproductive: History of: Abnormal Pap Smear (2011) Other: History of: MRSA (Left foot), Miscellaneous Medical Problems (DVT 12/2016) - Surgical History Cardiac Surgeries: Patient Denies: Femoral-Popliteal Bypass Graft, Cardiac Catheterization, Cardiac Surgery, Carotid Endarterectomy, Internal Defibrillator, Vascular Access Devices Thoracic Surgeries: Patient denies;: Kidney (Renal Surgery), Lithotripsy, Nephrectomy, Organ Transplant, Lobectomy Neurologic Surgeries: Patient denies: Neurologic Surgery HEENT Surgeries: Patient denies: Carotid Endarterectomy, Eye Surgery, Thyroid Surgery, Tonsilectomy & Adenoidectomy Abdominal Surgeries: Surgical HX of: Abdominal Surgery, Cholecystectomy (2013), Colonoscopy Patient denies: Splenectomy Reproductive Surgeries: Patient denies;: Breast Surgery, Section, Cystoscopy, Dilation and Curettage, Genitourinary Surgery, Gynecologic Surgery, Hysterectomy, Tubal Ligation Orthopedic Surgeries: Patient denies;: Implanted Devices, Orthopedic Surgery, Spinal Surgery, Total Hip Replacement, Total Knee Replacement - Family History Family History: Reports;: Family Cancer (uncle-colon, aunt-breast, aunt-leukemia ), Family Diabetes (Father), Family Heart Disease (Mother, Grandfather- [place]), Family Hypertension (Mother), Family Stroke (Mother) Denies;: Family Anesthesia Reaction, Family Psychiatric Problems - Social History Smoking Status: Current every day smoker Frequency of Alcohol Use: None Type of Drug Use: None Exam - Constitutional Vitals: Period Temp Pulse Resp BP Sys/Chavarria Pulse Ox Last 24 Hr 97.1 F-99.3 F 84-97 18-18 116-162/68-92 96-99 Exam: GENERAL: Patient is in no acute distress. NECK: Neck is supple. There is no JVD. No carotid bruits present. No thyroid masses. CVS: First and second heart sounds are normal. There is no S3 present. Regular rate and rhythm. RESPIRATORY: Lungs are clear to auscultation without any rales or rhonchi. ABDOMEN: Soft and non-tender. Bowel sounds are present. There is no hepatosplenomegaly. EXT: There is no palpable edema. Peripheral pulses are present. Skin: No rashes Central Nervous system: General: Alert, awake and Oriented x 3 Speech: Fluent Comprehension: Intact and normal Facial expressions: Normal Cranial Nerves: CN1/Olfactory: Normal CN II/ Optic: Normal, Visual Morales unreliable CN III, and : ANTIONETTE & EOMI CN V: Normal & intact CN VII: face is symmetric CNVIII: Normal CN XI/X/XI/XII: Intact and Normal Motor: Bulk is normal. Bilateral foot drop Strength in the right 3-4/5 Strength in the left 3-4/5 Sensory: Decreased for all the modalities of PP, LT and temp sense Reflexes: 1+ and symmetrical Cerebellar function: Normal finger to nose testing. Toes: Equivocal Gait: not tested Results - Labs CBC & BMP: 02/06/17 06:08 02/09/17 03:01 Assessment and Plan (1) Bilateral foot-drop Status: Acute Assessment and plan: Nerve conduction study/EMG of both lower extremities Current Visit: Yes (2) Peripheral polyneuropathy Status: Acute Assessment and plan: This is likely the part of diabetes. Will make further decision after nerve test Current Visit: Yes
[2017-02-12] MEDS: ONDANSETRON 4 MG/2 ML VIAL IV PRN (09:24)
--- NOTE | 2017-02-12 09:30 | Event Note ---
Ms. Desai is making progress as far as the left thigh wound is concerned with no sign of ongoing infection. The foot drop is significant Dr. Renetta feliz is evaluating but feels it may be a diabetic polyneuropathy. At this point time she has not been approved for home wound VAC and her abilities to care for this wound as an outpatient have proven to be inadequate. We are in the process of attempting to find a swing bed a rehab unit that would help with the continued care of the left thigh wound and also help with her bilateral foot drop.
--- NOTE | 2017-02-12 17:11 | Hospitalist Progress Note ---
Assessment and Plan (1) Wound dehiscence Status: Acute Assessment and plan: growing pseudomonas and klebsiella, cont oral cipro Current Visit: Yes (2) Diabetes mellitus Status: Acute Assessment and plan: bs controlled Current Visit: No (3) Peripheral vascular disease Status: Acute Assessment and plan: continue to smoke Current Visit: No (4) Essential hypertension Status: Acute Assessment and plan: controlled, cont losartan/hctz and coreg Current Visit: No (5) Partial seizure Status: Acute Assessment and plan: cont keppra 500 mg po bid Current Visit: No (6) DVT (deep venous thrombosis) Status: Acute Assessment and plan: cont eliquis bid Current Visit: Yes Hospitalist: Subjective Interval history: Patient not motivated to get out of bed. Blood sugars and blood pressure control. Referral to [facility]. Insurance will not pay for a wound VAC at home. Exam - Constitutional Vitals: Period Temp Pulse Resp BP Sys/Chavarria Pulse Ox Last 24 Hr 97.1 F-98.3 F 84-97 18-20 116-142/68-77 92-99 Exam: Heart Rate-RRR] Lungs-[CTAB] GI-[+bs soft, NT] Ext-[wound dehiscence, wound vac Neuro [Motor 5/5], [alert and oriented times 3] psych [depressed mood and flat affect] General [no acute distress Results - Labs CBC & BMP: 02/06/17 06:08 02/09/17 03:01 Lab Results: I have reviewed the past 24 hour labs Quality Measures - VTE Contraindication to Pharmacological VTE Prophylaxis: Already on Theraputic Agent , No Prophylaxis Needed
[2017-02-12] MEDS: ATORVASTATIN 20 MG TABLET PO SCH (21:34)
[2017-02-12] MEDS: INSULIN GLARGINE 100 UNIT/ML SUBCUT SCH (21:39)
[2017-02-13] MEDS: MORPHINE 2 MG/1 ML SYRINGE IV PRN ×3 (02:33→12:05)
[2017-02-13 03:53] LABS: Basophils # 0.1 10*3/uL (0.0-0.2); Basophils % 0.6 % (0.0-0.8); Eosinophils # 0.2 10*3/uL (0.0-0.87); Eosinophils % 2.3 % (0.00-10.9); Hematocrit 25.6 VOL% (35.7-47.0); Hemoglobin 8.1 GM/DL (12.0-16.0); Immature Granulocytes % 0.5 %; Immature Granulocytes Absolute 0.04 #; Lymphocytes # 2.5 10*3/uL (1.4-4.0); Lymphocytes % 28.5 % (21.3-54.2); Mean Corpuscular HGB Conc 31.6 GM/DL (32-36); Mean Corpuscular Hemoglobin 28 PG (27-34); Mean Corpuscular Volume 87.7 FL (87-102); Mean Platelet Volume 9.4 FL (9.6-12.0); Neutrophils # 5.1 10*3/uL (1.4-7.4); Neutrophils % 57.1 % (38.7-73.9); Platelet Count 500 T/CUMM (130-400); Red Blood Count 2.92 MC/CUMM (3.8-5.5); Red Cell Distribution Width 15.7 % (9.3-17.3); White Blood Count 8.9 T/CUMM (4-12)
[2017-02-13 04:24] LABS: Calcium 9.6 MG/DL (8.5-10.1); Potassium 4.4 MMOL/L (3.5-5.1)
[2017-02-13] MEDS: ALUMINUM/MAGNES/SIMETH MAX STR 30 ML UDCUP PO SCH ×2 (05:34→10:08)
[2017-02-13] MEDS: INSULIN REGULAR 100 UNIT/ML SUBCUT SCH ×2 (07:01→11:15)
[2017-02-13] MEDS: METOCLOPRAMIDE 10 MG TABLET PO SCH ×2 (07:33→11:17)
[2017-02-13] MEDS: glyBURIDE 5 MG TABLET PO SCH (07:45)
[2017-02-13] MEDS: LOSARTAN/HCTZ 50-12.5 MG TABLET PO SCH (08:37)
[2017-02-13] MEDS: ASPIRIN EC 81 MG TABLET PO SCH (08:38)
[2017-02-13] MEDS: metFORMIN 500 MG TABLET PO SCH (08:38)
[2017-02-13] MEDS: FLUoxetine 20 MG CAPSULE PO SCH (08:39)
[2017-02-13] MEDS: levETIRAcetam 500 MG TABLET PO SCH (08:40)
[2017-02-13] MEDS: CIPROFLOXACIN 500 MG TABLET PO SCH (08:40)
[2017-02-13] MEDS: APIXABAN 5 MG TABLET PO SCH (08:41)
[2017-02-13] MEDS: CARVEDILOL 25 MG TABLET PO SCH (08:41)
[2017-02-13] MEDS: PANTOPRAZOLE 40 MG TABLET PO SCH (08:41)
[2017-02-13] MEDS: NICOTINE 21 MG/24 HR PATCH TRANSDERM SCH (08:42)
--- NOTE | 2017-02-13 08:56 | Event Note ---
Ms. Desai is continuing to make progress with wound healing still require significant physical therapy depression is a big part of her difficulties and limits her willingness to improve. I am encouraging her to continue to work with physical therapy and walk. We are still hoping to find a location that can work with her and maintain the wound and a physical therapy as it is clear that she will not do that at home
--- NOTE | 2017-02-13 09:34 | Discharge Summary ---
Hospital Course - Hospital Course Hospital Course: Patient is a 41-year-old female with severe PVD who underwent femoral-popliteal bypass who was readmitted on 01/30/2017 with wound infection. She was treated with parenteral antibiotics and cultures were obtained with growth of pseudomonas aeruginosa and Klebsiella pneumoniae; blood cultures were obtained and negative. Infectious disease consultation was obtained for antibiotic recommendations as the patient had a wound refractory to healing, and limitations were appreciated. She was ultimately discharged to rehab facility with continued 3 more days of ciprofloxacin; renally dosed. Hospitalist consultation was obtained in the coding assistant medical management the patient has hypertension and diabetes mellitus; medication adjustments were noted and appreciated. Her creatinine was noted to be elevated 1.8 on the day of discharge; this is elevated above her baseline which appears to be 0.8-1.2 throughout the month of January 2017; ciprofloxacin dosing decreased and recommend repeating labs in next 48 hrs to ensure improvement. Wound VAC was applied during this hospitalization. Also during this hospitalization, the patient had noted progressive peripheral neuropathic symptoms with initially left-sided foot drop and then evidence of progressive right sided foot drop for which neurology was consulted and recommended EMG and nerve conduction studies; AFO braces have been ordered which we are awaiting. She continued on Eliquis for left ventricular thrombus. The patient has a history of lifetime nicotine abuse, but she has been abstinent since admission with the this is a nicotine patch. I discussed with her the importance of smoking cessation in an effort to improve her chances of healing this wound; she is in agreement to continue stepdown therapy with nicotine patches. She received therapies and was ultimately approved for discharge [facility] where she can continue her oral antibiotics for the next few days, wound VAC, therapies, and monitor her renal function, blood pressure, blood glucose levels to optimize her chances of healing this wound. She was discharged to this rehab center in good condition. - Time spent with patient Time with patient DS: Greater than 30 minutes Diagnosis - Discharge Diagnosis (1) Bilateral foot-drop Status: Acute (2) Nonhealing surgical wound Status: Acute (3) Peripheral polyneuropathy Status: Acute (4) Peripheral vascular disease Status: Chronic (5) Nicotine addiction Status: Acute (6) Diabetes mellitus Status: Chronic Discharge Plan - Discharge Data Disposition: Disch/Xfer-Ip Rehab Fac Condition at Discharge: Stable Discharge Diet: diabetic diet Activity: other (Consult PT/OT; progress as tolerated. Pt will require AFO braces for safe ambulation.) Hygiene: may shower (Keep wound clean and dry) Weight Bearing at Discharge: weight bear as tolerated Contact your physician if you experience:: fever over 101, Difficulty voiding, Redness or swelling, Nausea/Vomiting, Shortness of breath, Bleeding, pain uncontrolled by pain medications Wound / Dressing Care Instructions: Wound vac to left thigh wound changed every 3-4 days set at 120-125 mmHg continuous suction - Discharge Medications New Ciprofloxacin Tab [Cipro Tab] 250 mg PO BID #6 tablet Dextrose 50% [D50] 25 gm IV PRN PRN vial PRN Reason: Hypoglycemia with IV access Insulin Regular [HumuLIN R] See Protocol SUBCUT ACHS unit Losartan/Hctz 50-12.5 [Hyzaar 50-12.5] 1 tablet PO BID tablet metFORMIN [Glucophage] 1,000 mg PO BID tablet oxyCODONE/ACETAMINOPHEN 5-325 [Percocet 5-325] 1 tablet PO Q4H PRN #30 tablet PRN Reason: Pain Moderate To Severe (4-10) Insulin Glargine [Lantus] 14 unit SUBCUT BEDTIME unit Nicotine [Nicotine 14 mg/24 Hr Patch] 1 patch TRANSDERM DAILY #14 patch Continue Atorvastatin [Lipitor] 20 mg PO BEDTIME #30 tablet glyBURIDE [Diabeta] 5 mg PO BID W/MEALS #60 tablet Apixaban [Eliquis] 5 mg PO BID #60 tablet Aspirin EC Tab 81 mg PO QAM cloNIDine TAB [Catapres Tab] 0.3 mg PO BID #60 tablet levETIRAcetam TAB [Keppra Tab] 500 mg PO BID #60 tablet Pantoprazole Tab [Protonix Tab] 40 mg PO BID #60 tablet Metoclopramide Tab [Reglan Tab] 10 mg PO QID W/MEALS & HS Carvedilol [Coreg] 25 mg PO BID #60 tablet FLUoxetine [PROzac] 20 mg PO QAM Discontinued Nicotine 21 mg/24 Hr Patch [Nicoderm CQ 21 mg/24 hr Patch] 1 patch TRANSDERM DAILY #30 patch metFORMIN [Glucophage] 500 mg PO DAILY W/BREAKFAST tablet Docusate Sodium Cap [Colace Cap] 100 mg PO BID PRN PRN Reason: STOOL SOFTENER HYDROcodone/ACETAMIN 7.5-325 [Howe 7.5-325] 1 tablet PO Q4H PRN #30 tablet PRN Reason: Pain Acetaminophen Tab [Tylenol Tab] 1,000 mg PO Q6HR PRN PRN Reason: Pain Alum/Mag/Simeth Max Str Liquid [Mylanta Max Strength Liquid] 30 ml PO Q6H PRN PRN Reason: Dyspepsia Lisinopril [Prinivil] 40 mg PO QAM Oxycodone HCl/Acetaminophen [Oxycodone-Acetaminophen 5-325] 1 tablet PO Q6HR - Follow Up or Referral Follow Up: Kristopher Gibson MD [Physician] - 2 Weeks Nik Watkins MD [Physician] - 2 Weeks (F/u EMG/NCS and peripheral neuropathy) - Forms/Instructions Additional Discharge Instructions: -F/u primary care physician upon discharge from rehab center (1-2wks). Notify physician of medication adjustments and continued monitoring. -Check BMP 02/14/2017 Exam - Constitutional Vitals: Period Temp Pulse Resp BP Sys/Chavarria Pulse Ox Last 24 Hr 97.3 F-98.1 F 83-92 18-20 128-155/66-81 91-96 General appearance: no acute distress - Head Head exam: Present: normocephalic - Respiratory Respiratory exam: Present: clear to auscultation bilaterally - Cardiovascular Cardiovascular exam: Present: regular rate and rhythm - GI/Abdominal GI/Abdominal exam: Present: normal bowel sounds, soft. Absent: distended, tenderness - Extremities Exam Extremities exam: Absent: calf tenderness, edema - Neurological Exam Neurological exam: Present: alert, oriented X3 - Psychiatric Psychiatric exam: Present: normal affect - Skin Skin exam: Present: other (Wound VAC to left medial thigh wound intact and operational at 125 mmHg continuous suction) Discharge Results Procedures and tests throughout hospitalization: Blood cultures: no growth Left thigh wound culture: Pseudomonas aeruginosa; Klebsiella pneumoniae EMG/NCS: results pending at time of discharge Labs on day of discharge: Labs from last 24 hours 02/13/17 02/13/17 02/13/17 06:46 03:08 03:08 WBC 8.9 RBC 2.92 L Hgb 8.1 L Hct 25.6 L MCV 87.7 MCH 28 MCHC 31.6 L RDW 15.7 Plt Count 500 H MPV 9.4 L Neut % (Auto) 57.1 Lymph % (Auto) 28.5 Forest % (Auto) 11.0 Eos % (Auto) 2.3 Baso % (Auto) 0.6 Neut # (Auto) 5.1 Lymph # (Auto) 2.5 Forest # (Auto) 1.0 H Eos # (Auto) 0.2 Baso # (Auto) 0.1 Immature Gran % 0.5 Nucleated RBC % 0.0 Immature Gran # 0.04 Nucleated RBCs # 0.00 Immature Plt Fraction 0.0 Sodium 136 Potassium 4.4 Chloride 99 Carbon Dioxide 27 Anion Gap 14.4 BUN 32 H Creatinine 1.80 H GFR Calculation 43 BUN/Creatinine Ratio 17.00 Glucose 142 H POC Glucose 126 H Calculated Osmolality 280.0 Calcium 9.6 02/12/17 02/12/17 02/12/17 19:39 16:06 10:59 WBC RBC Hgb Hct MCV MCH MCHC RDW Plt Count MPV Neut % (Auto) Lymph % (Auto) Forest % (Auto) Eos % (Auto) Baso % (Auto) Neut # (Auto) Lymph # (Auto) Forest # (Auto) Eos # (Auto) Baso # (Auto) Immature Gran % Nucleated RBC % Immature Gran # Nucleated RBCs # Immature Plt Fraction Sodium Potassium Chloride Carbon Dioxide Anion Gap BUN Creatinine GFR Calculation BUN/Creatinine Ratio Glucose POC Glucose 150 H 119 H 109 H Calculated Osmolality Calcium - Imaging and Cardiology Procedure: Chest x-ray: image reviewed by me, report reviewed by me (No acute pathologic process identified) DS: Provider Date of admission: 01/30/17 20:57 Primary care physician: . No PCP Attending physician on admission: Kristopher Gibson MD Consults: 01/30/17 22:27 Consult to Case Mgmt/Social Srvs [CONS] Routine Reason for Case Mgmt/Social Srvs: Rehab Other Consult Comment: Home situation Consult to [facility], Educator [CONS] Routine Reason for Lithographed Plate Inspector: Diabetes Education Consult to Physician [CONS] Routine Comment: Medical performance management consultant Provider: [facility] Consulting Provider Notified: Yes When should Consulting Provider be notified: In am Person Notified: timothy called Date Notified: 01/31/17 Time Notified: 08:07 Consult to Wound Care [facility] [CONS] Routine Reason for Wound Care: Wound Care Management 01/31/17 09:26 Consult to Wound Care [facility] [CONS] Routine Reason for Wound Care: Wound Care Management 01/31/17 12:18 Consult to [facility], Educator [CONS] Routine Reason for Lithographed Plate Inspector: Diabetes Education 02/02/17 11:01 Consult to Physical Therapy [CONS] Routine Reason for Physical Therapy: Evaluate and Treat 02/02/17 11:57 Consult to Physician [CONS] Routine Comment: infection refractory to tx Consulting Provider: Kiersten Gomez Consulting Provider Notified: Yes When should Consulting Provider be notified: Now Person Notified: Dr. Yung is seeing on floor Date Notified: 02/02/17 Time Notified: 12:38 02/08/17 14:50 Consult to Physician [CONS] Routine Comment: Patient has developed progressive foot drop bilate Consulting Provider: Nik Watkins Person Notified: DR WATKINS Date Notified: 02/11/17 Time Notified: 10:40 Consult Notification Comment: Ama call at 2:55 on 02/08/2017. Dr. Watkins on bypass. please call on Sunday with consult to him. PAGED ON 02/11/2017 @[id number] PAGED AGAIN ON 02/11/2017 139 Discharging clinician: Rhonda Ellis PA-C
[2017-02-13] MEDS: POLYETHYLENE GLYCOL POWDER 17 GM PACK PO SCH (09:53)
[2017-02-13] MEDS: SODIUM HYPOCHLORITE 0.25% IRRIG 473 ML BOTTLE TOP SCH (09:54)
[2017-02-13 11:27] VITALS: BP 163/85
== END 2017-02-13 15:05 | DRG 721 ==
LOC: EDBD → EDUNIT# → N.ED 16:55 → N.3E 20:57
PROVIDERS: ADMIT Surgery; ATTEND Surgery

== ENCOUNTER 2017-03-01 14:00 | Inpatient (IN) ==
[2017-03-01] MEDS ORDERED: SODIUM CHLORIDE 0.9% 1,000 ML IV STA (14:32)
[2017-03-01] MEDS ORDERED: ONDANSETRON 4 MG/2 ML VIAL IV STA (14:32)
[2017-03-01 15:50] LABS: Basophils % 0.2 % (0.0-0.8); Eosinophils % 0.4 % (0.00-10.9); Hematocrit 41.9 VOL% (35.7-47.0); Hemoglobin 13.6 GM/DL (12.0-16.0); Immature Granulocytes % 0.2 %; Immature Granulocytes Absolute 0.02 #; Lymphocytes # 2.9 10*3/uL (1.4-4.0); Lymphocytes % 35.4 % (21.3-54.2); Mean Corpuscular HGB Conc 32.5 GM/DL (32-36); Mean Corpuscular Hemoglobin 28 PG (27-34); Mean Corpuscular Volume 84.8 FL (87-102); Mean Platelet Volume 9.7 FL (9.6-12.0); Monocytes # 0.4 10*3/uL (0.11-0.8); Monocytes % 4.7 % (1.7-12.7); Neutrophils # 4.7 10*3/uL (1.4-7.4); Neutrophils % 59.1 % (38.7-73.9); Platelet Count 400 T/CUMM (130-400); Red Blood Count 4.94 MC/CUMM (3.8-5.5); Red Cell Distribution Width 17.9 % (9.3-17.3)
[2017-03-01 16:16] LABS: Apearance,Urine Slightly Hazy (Clear); Bacteria,Urine Occasional /HPF (Few); Bilirubin,Urine Negative (Negative); Blood, Urine Moderate mg/dL (Negative); Glucose,Urine (UA) 150 mg/dL (Negative); Ketones,Urine 20 mg/dL (Negative); Nitrite,Urine Negative (Negative); Protein,Urine >=500 MG/DL; RBC,Urine 3 /HPF (0-4); Squamous Epithelial Cell,Urine Occasional /HPF (0-10); Urine Color Yellow (Yellow); Urine Specific Gravity 1.014 (1.001-1.035); Urine Urobilinogen < 2.0 EU/DL (0.2-1.0); WBC,Urine 1 /HPF (0-6)
[2017-03-01 16:18] LABS: Albumin 3.8 G/DL (3.4-5.0); Bilirubin,Total 0.5 MG/DL (0.2-1.0); Calcium 10.6 MG/DL (8.5-10.1); Potassium 3.7 MMOL/L (3.5-5.1); Total Protein 10.5 G/DL (6.4-8.3)
[2017-03-01] MEDS ORDERED: ONDANSETRON 4 MG/2 ML VIAL ONE (16:33)
[2017-03-01] MEDS ORDERED: LABETALOL 20 MG/4 ML SYRINGE IV ONE (16:38)
[2017-03-01] MEDS ORDERED: LABETALOL 100 MG/20 ML VIAL IV STA (16:43)
[2017-03-01] MEDS ORDERED: PROMETHAZINE 25 MG/1 ML VIAL ONE (17:31)
[2017-03-01] MEDS ORDERED: PROMETHAZINE 25 MG/1 ML VIAL IM STA (17:39)
[2017-03-01 17:58] LABS: ABG Base Excess -1.7 MMOL/L (-2.5-2.5); ABG HCO3 22.9 MMOL/L (20-26); ABG Oxygen Saturation 96.7 % (95-100); ABG PCO2 35.4 MM HG (35-48); ABG TCO2 20.3 MMOL/L (23-27)
[2017-03-01] MEDS ORDERED: GLUCAGON 1 MG VIAL IM PRN (18:25)
[2017-03-01] MEDS ORDERED: DEXTROSE 50% 25 GM/50 ML VIAL IV PRN (18:25)
[2017-03-01] MEDS: MORPHINE 2 MG/1 ML SYRINGE IV PRN (22:19)
[2017-03-01] MEDS: SODIUM CHLORIDE 0.9% 1,000 ML IV SCH (22:24)
[2017-03-01] MEDS: INSULIN LISPRO 100 UNIT/ML SUBCUT SCH (22:24)
[2017-03-01] MEDS: ONDANSETRON 4 MG/2 ML VIAL IV PRN (22:31)
[2017-03-02] MEDS: hydrALAZINE 20 MG/1 ML VIAL IV PRN ×2 (00:15→12:05)
[2017-03-02] MEDS: INSULIN LISPRO 100 UNIT/ML SUBCUT SCH ×6 (02:30→22:06)
[2017-03-02] MEDS: MORPHINE 2 MG/1 ML SYRINGE IV PRN ×5 (02:34→19:47)
[2017-03-02] MEDS: ONDANSETRON 4 MG/2 ML VIAL IV PRN ×3 (03:51→16:54)
[2017-03-02 05:24] LABS: Calcium 8.9 MG/DL (8.5-10.1); Magnesium 1.4 MG/DL (1.8-2.4); Osmolality,Calculated 285.4 MOS/KG (273-304); Potassium 3.2 MMOL/L (3.5-5.1)
[2017-03-02 06:06] LABS: Basophils % 0.4 % (0.0-0.8); Eosinophils # 0.1 10*3/uL (0.0-0.87); Eosinophils % 1.1 % (0.00-10.9); Hematocrit 32.5 VOL% (35.7-47.0); Hemoglobin 10.7 GM/DL (12.0-16.0); Immature Granulocytes % 0.3 %; Immature Granulocytes Absolute 0.03 #; Lymphocytes # 2.4 10*3/uL (1.4-4.0); Lymphocytes % 26.2 % (21.3-54.2); Mean Corpuscular HGB Conc 32.9 GM/DL (32-36); Mean Corpuscular Hemoglobin 28 PG (27-34); Mean Corpuscular Volume 84.6 FL (87-102); Mean Platelet Volume 9.4 FL (9.6-12.0); Monocytes # 0.8 10*3/uL (0.11-0.8); Monocytes % 8.8 % (1.7-12.7); Neutrophils # 5.8 10*3/uL (1.4-7.4); Neutrophils % 63.2 % (38.7-73.9); Platelet Count 327 T/CUMM (130-400); Red Blood Count 3.84 MC/CUMM (3.8-5.5); Red Cell Distribution Width 17.7 % (9.3-17.3); White Blood Count 9.2 T/CUMM (4-12)
[2017-03-02] MEDS: SODIUM CHLORIDE 0.9% 1,000 ML IV SCH ×2 (06:24→15:04)
[2017-03-02] MEDS ORDERED: PANTOPRAZOLE 40 MG VIAL IV SCH (09:00)
[2017-03-02] MEDS: LISINOPRIL 20 MG TABLET PO SCH (10:06)
[2017-03-02] MEDS: APIXABAN 5 MG TABLET PO SCH ×2 (10:06→20:32)
[2017-03-02] MEDS: FLUoxetine 20 MG CAPSULE PO SCH (10:06)
[2017-03-02] MEDS: PANTOPRAZOLE 40 MG TABLET PO SCH ×2 (10:07→20:32)
[2017-03-02] MEDS: ASPIRIN EC 81 MG TABLET PO SCH (10:07)
[2017-03-02] MEDS: CARVEDILOL 25 MG TABLET PO SCH ×2 (10:07→20:32)
[2017-03-02] MEDS: levETIRAcetam 500 MG TABLET PO SCH ×2 (10:07→20:33)
[2017-03-02] MEDS: METOCLOPRAMIDE 10 MG TABLET PO SCH ×4 (10:07→20:32)
[2017-03-02] MEDS: NICOTINE 14 MG/24 HR PATCH TRANSDERM SCH (10:08)
[2017-03-02] MEDS ORDERED: MAGNESIUM SULF RIDER 4 GM in PREMIX 1 EACH IV ONE (17:00)
[2017-03-02] MEDS: ATORVASTATIN 20 MG TABLET PO SCH (20:32)
[2017-03-02] MEDS ORDERED: ACETAMINOPHEN 325 MG TABLET PO ONE (21:51)
[2017-03-03] MEDS: SODIUM CHLORIDE 0.9% 1,000 ML IV SCH ×3 (04:00→20:21)
[2017-03-03] MEDS: INSULIN LISPRO 100 UNIT/ML SUBCUT SCH ×5 (04:34→18:28)
[2017-03-03] MEDS: MORPHINE 2 MG/1 ML SYRINGE IV PRN ×3 (05:33→20:22)
[2017-03-03] MEDS: FLUoxetine 20 MG CAPSULE PO SCH (08:55)
[2017-03-03] MEDS: levETIRAcetam 500 MG TABLET PO SCH ×2 (08:55→20:21)
[2017-03-03] MEDS: APIXABAN 5 MG TABLET PO SCH ×2 (08:55→20:21)
[2017-03-03] MEDS: LISINOPRIL 20 MG TABLET PO SCH (08:55)
[2017-03-03] MEDS: METOCLOPRAMIDE 10 MG TABLET PO SCH ×4 (08:56→20:21)
[2017-03-03] MEDS: ASPIRIN EC 81 MG TABLET PO SCH (08:56)
[2017-03-03] MEDS: CARVEDILOL 25 MG TABLET PO SCH ×2 (08:56→20:21)
[2017-03-03] MEDS: NICOTINE 14 MG/24 HR PATCH TRANSDERM SCH (08:56)
[2017-03-03] MEDS: PANTOPRAZOLE 40 MG TABLET PO SCH ×2 (08:56→20:21)
[2017-03-03] MEDS: ONDANSETRON 4 MG/2 ML VIAL IV PRN ×2 (09:07→20:22)
[2017-03-03 11:36] LABS: Basophils % 0.8 % (0.0-0.8); Eosinophils # 0.2 10*3/uL (0.0-0.87); Hemoglobin 8.9 GM/DL (12.0-16.0); Immature Granulocytes % 0.4 %; Immature Granulocytes Absolute 0.02 #; Lymphocytes % 36.8 % (21.3-54.2); Mean Corpuscular HGB Conc 31.8 GM/DL (32-36); Mean Corpuscular Hemoglobin 28 PG (27-34); Mean Corpuscular Volume 88.1 FL (87-102); Mean Platelet Volume 10.1 FL (9.6-12.0); Monocytes # 0.5 10*3/uL (0.11-0.8); Monocytes % 9.8 % (1.7-12.7); NRBC # 0.02 10*3/uL; Neutrophils # 2.6 10*3/uL (1.4-7.4); Neutrophils % 49.2 % (38.7-73.9); Platelet Count 238 T/CUMM (130-400); Red Blood Count 3.18 MC/CUMM (3.8-5.5); Red Cell Distribution Width 17.4 % (9.3-17.3); White Blood Count 5.3 T/CUMM (4-12)
[2017-03-03 11:49] LABS: Alanine Aminotransferase 25 U/L (13-56); Albumin 2.2 G/DL (3.4-5.0); Alkaline Phosphatase 67 U/L (45-117); Aspartate Amino Transferase 24 U/L (0-37); Bilirubin,Total < 0.39 MG/DL (0.2-1.0); Blood Urea Nitrogen 18 MG/DL (7-18); Calcium 7.6 MG/DL (8.5-10.1); Glucose 200 MG/DL (74-106); Osmolality,Calculated 284.5 MOS/KG (273-304); Sodium 139 MMOL/L (136-145); Total Protein 5.9 G/DL (6.4-8.3)
[2017-03-03] MEDS ORDERED: POTASSIUM CHLORIDE 20 MEQ TABLET PO ONE (13:40)
[2017-03-03] MEDS: ATORVASTATIN 20 MG TABLET PO SCH (20:21)
[2017-03-04] MEDS: INSULIN LISPRO 100 UNIT/ML SUBCUT SCH ×5 (02:26→15:47)
[2017-03-04] MEDS: SODIUM CHLORIDE 0.9% 1,000 ML IV SCH ×3 (04:29→15:48)
[2017-03-04] MEDS: MORPHINE 2 MG/1 ML SYRINGE IV PRN ×2 (04:30→10:15)
[2017-03-04] MEDS: CARVEDILOL 25 MG TABLET PO SCH (10:07)
[2017-03-04] MEDS: APIXABAN 5 MG TABLET PO SCH (10:08)
[2017-03-04] MEDS: levETIRAcetam 500 MG TABLET PO SCH (10:08)
[2017-03-04] MEDS: ASPIRIN EC 81 MG TABLET PO SCH (10:08)
[2017-03-04] MEDS: PANTOPRAZOLE 40 MG TABLET PO SCH (10:08)
[2017-03-04] MEDS: NICOTINE 14 MG/24 HR PATCH TRANSDERM SCH (10:09)
[2017-03-04] MEDS: LISINOPRIL 20 MG TABLET PO SCH (10:09)
[2017-03-04] MEDS: METOCLOPRAMIDE 10 MG TABLET PO SCH ×3 (10:09→16:43)
[2017-03-04] MEDS: FLUoxetine 20 MG CAPSULE PO SCH (10:15)
[2017-03-04] MEDS: ONDANSETRON 4 MG/2 ML VIAL IV PRN (10:26)
[2017-03-04 17:36] VITALS: BP 106/55
== END 2017-03-04 05:48 | disposition home or self-care (01) | DRG 282 ==
LOC: EDBD → EDUNIT# → N.ED 14:00 → N.EDINP 16:59 → N.2E 19:58
PROVIDERS: ADMIT Internal Medicine; ATTEND Internal Medicine

== ENCOUNTER 2017-03-11 17:42 | Inpatient (IN) ==
[2017-03-11] MEDS ORDERED: ONDANSETRON 4 MG/2 ML VIAL IV STA (18:10)
[2017-03-11] MEDS ORDERED: SODIUM CHLORIDE 0.9% 1,000 ML IV STA (18:10)
[2017-03-11] MEDS ORDERED: ALUM/MAG/SIMETH/LIDO VISC 1:1 30 ML BOTTLE PO STA (18:10)
[2017-03-11] MEDS ORDERED: KETOROLAC 30 MG/1 ML VIAL IV STA (18:10)
[2017-03-11] MEDS ORDERED: PANTOPRAZOLE 40 MG VIAL IV STA (18:10)
[2017-03-11] MEDS ORDERED: PANTOPRAZOLE 40 MG VIAL IV ONE (18:59)
[2017-03-11] MEDS ORDERED: KETOROLAC 30 MG/1 ML VIAL ONE (19:00)
[2017-03-11] MEDS ORDERED: ONDANSETRON 4 MG/2 ML VIAL ONE (19:00)
[2017-03-11] MEDS ORDERED: ALUM/MAG/SIMETH/LIDO VISC 1:1 30 ML BOTTLE PO ONE (19:00)
[2017-03-11 19:34] LABS: Basophils % 0.2 % (0.0-0.8); Hematocrit 33.3 VOL% (35.7-47.0); Hemoglobin 10.9 GM/DL (12.0-16.0); Immature Granulocytes % 0.4 %; Immature Granulocytes Absolute 0.06 #; Lymphocytes # 1.4 10*3/uL (1.4-4.0); Lymphocytes % 10.2 % (21.3-54.2); Mean Corpuscular HGB Conc 32.7 GM/DL (32-36); Mean Corpuscular Hemoglobin 28 PG (27-34); Mean Corpuscular Volume 84.1 FL (87-102); Mean Platelet Volume 10.4 FL (9.6-12.0); Monocytes # 0.8 10*3/uL (0.11-0.8); Monocytes % 5.4 % (1.7-12.7); Neutrophils # 11.6 10*3/uL (1.4-7.4); Neutrophils % 83.8 % (38.7-73.9); Platelet Count 354 T/CUMM (130-400); Red Blood Count 3.96 MC/CUMM (3.8-5.5); Red Cell Distribution Width 17.3 % (9.3-17.3); White Blood Count 13.9 T/CUMM (4-12)
[2017-03-11 20:01] LABS: Lactic Acid 1.2 MMOL/L (0.4-2.0)
[2017-03-11 20:03] LABS: Albumin 2.5 G/DL (3.4-5.0); Bilirubin,Total 0.7 MG/DL (0.2-1.0); Calcium 9.3 MG/DL (8.5-10.1); Magnesium 1.3 MG/DL (1.8-2.4); Osmolality,Calculated 276.7 MOS/KG (273-304); Total Protein 7.7 G/DL (6.4-8.3)
[2017-03-11 20:05] LABS: Troponin I Only 0.098 NG/ML (0.00-0.045)
[2017-03-11] MEDS ORDERED: MAGNESIUM SULF RIDER 2 GM in PREMIX 1 EACH IV STA (20:10)
[2017-03-11] MEDS ORDERED: POTASSIUM CHLORIDE 20 MEQ TABLET PO STA (20:10)
[2017-03-11 20:42] LABS: Apearance,Urine Slightly Hazy (Clear); Bacteria,Urine Moderate /HPF (Few); Bilirubin,Urine Negative (Negative); Blood, Urine Small mg/dL (Negative); Glucose,Urine (UA) 50 mg/dL (Negative); Ketones,Urine 20 mg/dL (Negative); Mucus,Urine Occasional /LPF (Occasional); Nitrite,Urine Negative (Negative); Protein,Urine 100 MG/DL; RBC,Urine 6 /HPF (0-4); Squamous Epithelial Cell,Urine Few /HPF (0-10); Urine Color Yellow (Yellow); Urine Specific Gravity 1.012 (1.001-1.035); Urine Urobilinogen < 2.0 EU/DL (0.2-1.0); WBC,Urine 2 /HPF (0-6)
[2017-03-11] MEDS ORDERED: HYDROmorphone 2 MG/1 ML VIAL ONE (21:17)
[2017-03-11] MEDS ORDERED: hydrALAZINE 20 MG/1 ML VIAL IV STA (21:27)
[2017-03-11] MEDS ORDERED: HYDROmorphone 2 MG/1 ML VIAL IV STA (21:27)
[2017-03-11] MEDS ORDERED: hydrALAZINE 20 MG/1 ML VIAL ONE (21:30)
[2017-03-11] MEDS ORDERED: POTASSIUM CHLORIDE 20 MEQ TABLET PO ONE (21:30)
[2017-03-11] MEDS ORDERED: MAGNESIUM SULF RIDER 50 ML IV ONE (21:30)
[2017-03-11] MEDS ORDERED: ONDANSETRON 4 MG/2 ML VIAL IV PRN (21:38)
[2017-03-11] MEDS ORDERED: hydrALAZINE 20 MG/1 ML VIAL IV PRN (21:44)
[2017-03-11] MEDS ORDERED: ENOXAPARIN 40 MG/0.4 ML SYRINGE SUBCUT SCH (22:00)
[2017-03-11] MEDS ORDERED: GLUCAGON 1 MG VIAL IM PRN (22:16)
[2017-03-11] MEDS ORDERED: DEXTROSE 50% 25 GM/50 ML VIAL IV PRN (22:16)
[2017-03-11 22:17] LABS: Barbiturates Screen,Urine Negative (Negative); Benzodiazepines Screen,Urine Negative (Negative); Cannabinoid Screen,Urine Negative (Negative); Opiate Screen,Urine Negative (Negative); Phencyclidine Screen,Urine Negative (Negative)
[2017-03-11] MEDS ORDERED: INFLUENZA VIRUS VACCINE 0.5 ML SYRINGE IM ONE (23:25)
[2017-03-11] MEDS: HYDROmorphone 2 MG/1 ML VIAL IV PRN (23:37)
[2017-03-11] MEDS: SODIUM CHLORIDE 0.9% 1,000 ML IV SCH (23:37)
[2017-03-11] MEDS: CARVEDILOL 25 MG TABLET PO SCH (23:43)
[2017-03-11] MEDS: levETIRAcetam 500 MG TABLET PO SCH (23:43)
[2017-03-11] MEDS: APIXABAN 5 MG TABLET PO SCH (23:43)
[2017-03-12] MEDS: PANTOPRAZOLE 40 MG TABLET PO SCH ×3 (01:00→20:55)
[2017-03-12] MEDS: ATORVASTATIN 20 MG TABLET PO SCH ×2 (01:00→20:55)
[2017-03-12] MEDS: HYDROmorphone 2 MG/1 ML VIAL IV PRN ×4 (02:42→19:14)
[2017-03-12 05:47] LABS: Basophils % 0.1 % (0.0-0.8); Eosinophils % 0.1 % (0.00-10.9); Hematocrit 29.5 VOL% (35.7-47.0); Hemoglobin 9.7 GM/DL (12.0-16.0); Immature Granulocytes % 0.6 %; Immature Granulocytes Absolute 0.08 #; Lymphocytes # 1.6 10*3/uL (1.4-4.0); Lymphocytes % 11.5 % (21.3-54.2); Mean Corpuscular HGB Conc 32.9 GM/DL (32-36); Mean Corpuscular Hemoglobin 28 PG (27-34); Mean Corpuscular Volume 84.5 FL (87-102); Mean Platelet Volume 10.9 FL (9.6-12.0); Monocytes # 0.8 10*3/uL (0.11-0.8); Monocytes % 5.8 % (1.7-12.7); Neutrophils # 11.3 10*3/uL (1.4-7.4); Neutrophils % 81.9 % (38.7-73.9); Platelet Count 167 T/CUMM (130-400); Red Blood Count 3.49 MC/CUMM (3.8-5.5); Red Cell Distribution Width 17.7 % (9.3-17.3); White Blood Count 13.8 T/CUMM (4-12)
[2017-03-12 06:47] LABS: Hypochromasia 2+; Microcytosis 1+
[2017-03-12] MEDS ORDERED: PANTOPRAZOLE 40 MG TABLET PO SCH (09:00)
[2017-03-12 09:25] LABS: Calcium 8.2 MG/DL (8.5-10.1); Osmolality,Calculated 285.7 MOS/KG (273-304); Potassium 3.2 MMOL/L (3.5-5.1)
[2017-03-12] MEDS: INSULIN LISPRO 100 UNIT/ML SUBCUT SCH ×4 (09:28→20:56)
[2017-03-12] MEDS: metFORMIN 500 MG TABLET PO SCH (09:34)
[2017-03-12] MEDS: CARVEDILOL 25 MG TABLET PO SCH ×2 (09:34→20:55)
[2017-03-12] MEDS: LISINOPRIL 20 MG TABLET PO SCH (09:34)
[2017-03-12] MEDS: APIXABAN 5 MG TABLET PO SCH ×2 (09:35→20:55)
[2017-03-12] MEDS: ASPIRIN EC 81 MG TABLET PO SCH (09:35)
[2017-03-12] MEDS: glyBURIDE 5 MG TABLET PO SCH ×2 (09:35→17:42)
[2017-03-12] MEDS: METOCLOPRAMIDE 10 MG TABLET PO SCH ×4 (09:35→20:55)
[2017-03-12] MEDS: FLUoxetine 20 MG CAPSULE PO SCH (09:35)
[2017-03-12] MEDS: levETIRAcetam 500 MG TABLET PO SCH ×2 (09:36→20:55)
[2017-03-12] MEDS: SODIUM CHLORIDE 0.9% 1,000 ML IV SCH ×2 (09:36→15:24)
[2017-03-12] MEDS ORDERED: POTASSIUM CHLORIDE RIDER 20 MEQ in PREMIX 1 EACH IV PRN (13:45)
[2017-03-12 13:50] LABS: Magnesium 1.8 MG/DL (1.8-2.4); Osmolality,Calculated 280.7 MOS/KG (273-304)
[2017-03-12] MEDS ORDERED: POTASSIUM CHLORIDE RIDER 10 MEQ in PREMIX 1 EACH IV PRN (14:18)
[2017-03-12] MEDS ORDERED: ACETAMINOPHEN 500 MG TABLET PO PRN (15:00)
[2017-03-12] MEDS: LEVOFLOXACIN INJ 500 MG in PREMIX 1 EACH IV SCH (15:25)
[2017-03-12] MEDS: MAGNESIUM OXIDE 400 MG TABLET PO SCH ×2 (15:27→20:54)
[2017-03-13] MEDS: HYDROmorphone 2 MG/1 ML VIAL IV PRN ×2 (00:32→18:37)
[2017-03-13 09:54] LABS: Calcium 7.6 MG/DL (8.5-10.1); Osmolality,Calculated 278.4 MOS/KG (273-304); Potassium 2.9 MMOL/L (3.5-5.1)
[2017-03-13] MEDS ORDERED: POTASSIUM CHLORIDE 20 MEQ TABLET PO ONE (10:30)
[2017-03-13] MEDS: SODIUM CHLORIDE 0.9% 1,000 ML IV SCH ×4 (11:12→18:39)
[2017-03-13] MEDS: INSULIN LISPRO 100 UNIT/ML SUBCUT SCH ×4 (11:15→20:40)
[2017-03-13] MEDS: glyBURIDE 5 MG TABLET PO SCH ×2 (11:15→16:39)
[2017-03-13] MEDS: metFORMIN 500 MG TABLET PO SCH (11:15)
[2017-03-13] MEDS: METOCLOPRAMIDE 10 MG TABLET PO SCH ×4 (11:15→20:38)
[2017-03-13] MEDS: APIXABAN 5 MG TABLET PO SCH ×2 (11:16→20:38)
[2017-03-13] MEDS: ASPIRIN EC 81 MG TABLET PO SCH (11:16)
[2017-03-13] MEDS: CARVEDILOL 25 MG TABLET PO SCH ×2 (11:16→20:38)
[2017-03-13] MEDS: POTASSIUM CHLORIDE 20 MEQ TABLET PO SCH (11:16)
[2017-03-13] MEDS: MAGNESIUM OXIDE 400 MG TABLET PO SCH ×2 (11:17→20:38)
[2017-03-13] MEDS: levETIRAcetam 500 MG TABLET PO SCH ×2 (11:17→20:38)
[2017-03-13] MEDS: FLUoxetine 20 MG CAPSULE PO SCH (11:17)
[2017-03-13] MEDS: LISINOPRIL 20 MG TABLET PO SCH (11:17)
[2017-03-13] MEDS: PANTOPRAZOLE 40 MG TABLET PO SCH ×2 (11:17→20:38)
[2017-03-13] MEDS: LEVOFLOXACIN INJ 500 MG in PREMIX 1 EACH IV SCH (16:40)
[2017-03-13] MEDS: ATORVASTATIN 20 MG TABLET PO SCH (20:37)
[2017-03-14] MEDS: HYDROmorphone 2 MG/1 ML VIAL IV PRN ×3 (00:27→09:50)
[2017-03-14] MEDS: SODIUM CHLORIDE 0.9% 1,000 ML IV SCH ×2 (01:48→09:40)
[2017-03-14] MEDS: INSULIN LISPRO 100 UNIT/ML SUBCUT SCH ×2 (07:30→11:37)
[2017-03-14] MEDS: METOCLOPRAMIDE 10 MG TABLET PO SCH ×2 (08:09→12:55)
[2017-03-14] MEDS: glyBURIDE 5 MG TABLET PO SCH (08:19)
[2017-03-14] MEDS: metFORMIN 500 MG TABLET PO SCH (08:19)
[2017-03-14 09:50] LABS: Calcium 7.9 MG/DL (8.5-10.1); Osmolality,Calculated 276.5 MOS/KG (273-304); Potassium 4.3 MMOL/L (3.5-5.1)
[2017-03-14] MEDS: LEVOFLOXACIN INJ 500 MG in PREMIX 1 EACH IV SCH (09:55)
[2017-03-14] MEDS: POTASSIUM CHLORIDE 20 MEQ TABLET PO SCH (09:56)
[2017-03-14] MEDS: CARVEDILOL 25 MG TABLET PO SCH (09:56)
[2017-03-14] MEDS: PANTOPRAZOLE 40 MG TABLET PO SCH (09:56)
[2017-03-14] MEDS: LISINOPRIL 20 MG TABLET PO SCH (09:56)
[2017-03-14] MEDS: ASPIRIN EC 81 MG TABLET PO SCH (09:56)
[2017-03-14] MEDS: FLUoxetine 20 MG CAPSULE PO SCH (09:57)
[2017-03-14] MEDS: MAGNESIUM OXIDE 400 MG TABLET PO SCH (09:57)
[2017-03-14] MEDS: levETIRAcetam 500 MG TABLET PO SCH (09:57)
[2017-03-14] MEDS: APIXABAN 5 MG TABLET PO SCH (09:57)
[2017-03-14 10:18] LABS: Basophils % 0.4 % (0.0-0.8); Eosinophils # 0.1 10*3/uL (0.0-0.87); Hematocrit 29.2 VOL% (35.7-47.0); Hemoglobin 8.9 GM/DL (12.0-16.0); Immature Granulocytes % 0.8 %; Immature Granulocytes Absolute 0.06 #; Lymphocytes # 1.9 10*3/uL (1.4-4.0); Lymphocytes % 25.6 % (21.3-54.2); Mean Corpuscular HGB Conc 30.5 GM/DL (32-36); Mean Corpuscular Hemoglobin 28 PG (27-34); Mean Corpuscular Volume 91.5 FL (87-102); Mean Platelet Volume 11.3 FL (9.6-12.0); Monocytes # 0.6 10*3/uL (0.11-0.8); Monocytes % 8.5 % (1.7-12.7); Neutrophils # 4.6 10*3/uL (1.4-7.4); Neutrophils % 63.7 % (38.7-73.9); Platelet Count 183 T/CUMM (130-400); Red Blood Count 3.19 MC/CUMM (3.8-5.5); Red Cell Distribution Width 18.1 % (9.3-17.3); White Blood Count 7.3 T/CUMM (4-12)
[2017-03-14 10:39] LABS: Platelet Estimate Adequate
[2017-03-14] MEDS ORDERED: GLUCAGON 1 MG VIAL IM PRN (13:40)
[2017-03-14] MEDS ORDERED: DEXTROSE 50% 25 GM/50 ML VIAL IV PRN (13:40)
[2017-03-14 17:15] VITALS: BP 152/78
== END 2017-03-14 17:30 | disposition home health service (06) | DRG 282 ==
LOC: EDUNIT# → EDBD → N.EDINP 17:42 → N.ED 17:42 → N.2E 22:18 → SUATTDRO 03-13 12:53
PROVIDERS: ADMIT Hospitalist; ATTEND Internal Medicine

== ENCOUNTER 2017-07-31 16:54 | Inpatient (IN) ==
[2017-07-31] MEDS ORDERED: FUROSEMIDE 100 MG/10 ML VIAL ONE (17:11)
[2017-07-31] MEDS ORDERED: FUROSEMIDE 40 MG/4 ML VIAL IV STA (17:13)
[2017-07-31] MEDS ORDERED: hydrALAZINE 20 MG/1 ML VIAL IV STA (17:13)
[2017-07-31] MEDS ORDERED: hydrALAZINE 20 MG/1 ML VIAL ONE (17:28)
[2017-07-31 17:32] LABS: Basophils # 0.1 10*3/uL (0.0-0.2); Basophils % 0.4 % (0.0-0.8); Eosinophils # 0.2 10*3/uL (0.0-0.87); Eosinophils % 1.3 % (0.00-10.9); Hematocrit 24.5 VOL% (35.7-47.0); Hemoglobin 7.5 GM/DL (12.0-16.0); Immature Granulocytes % 0.6 %; Lymphocytes # 1.7 10*3/uL (1.4-4.0); Lymphocytes % 9.6 % (21.3-54.2); Mean Corpuscular HGB Conc 30.6 GM/DL (32-36); Mean Corpuscular Hemoglobin 28 PG (27-34); Mean Corpuscular Volume 90.4 FL (87-102); Mean Platelet Volume 10.1 FL (9.6-12.0); Monocytes # 0.9 10*3/uL (0.11-0.8); Neutrophils # 14.2 10*3/uL (1.4-7.4); Neutrophils % 83.1 % (38.7-73.9); Platelet Count 539 T/CUMM (130-400); Red Blood Count 2.71 MC/CUMM (3.8-5.5); Red Cell Distribution Width 18.5 % (9.3-17.3); White Blood Count 17.2 T/CUMM (4-12)
[2017-07-31 17:40] LABS: Apearance,Urine Slightly Hazy (Clear); Bacteria,Urine Moderate /HPF (Few); Bilirubin,Urine Negative (Negative); Blood, Urine Small mg/dL (Negative); Glucose,Urine (UA) 50 mg/dL (Negative); Ketones,Urine Negative (Negative); Mucus,Urine Occasional /LPF (Occasional); Nitrite,Urine Negative (Negative); Protein,Urine 100 MG/DL; RBC,Urine 5 /HPF (0-4); Squamous Epithelial Cell,Urine Occasional /HPF (0-10); Urine Color Yellow (Yellow); Urine Specific Gravity 1.012 (1.001-1.035); Urine Urobilinogen < 2.0 EU/DL (0.2-1.0); WBC,Urine 1 /HPF (0-6)
[2017-07-31] MEDS ORDERED: FUROSEMIDE 40 MG/4 ML VIAL ONE (17:40)
[2017-07-31 17:46] LABS: INR 1.2; PT Patient Result 12.5 SECS; Partial Thromboplastin Time 26.6 SECS (0-40)
[2017-07-31] MEDS ORDERED: FUROSEMIDE 20 MG/2 ML VIAL IV STA (17:54)
[2017-07-31 18:02] LABS: Alanine Aminotransferase 16 U/L (13-56); Albumin 2.1 G/DL (3.4-5.0); Alkaline Phosphatase 152 U/L (45-117); Aspartate Amino Transferase 15 U/L (0-37); Bilirubin,Total < 0.39 MG/DL (0.2-1.0); Blood Urea Nitrogen 13 MG/DL (7-18); Calcium 8.2 MG/DL (8.5-10.1); Glucose 208 MG/DL (74-106); Osmolality,Calculated 284.4 MOS/KG (273-304); Sodium 140 MMOL/L (136-145); Total Protein 6.9 G/DL (6.4-8.3)
[2017-07-31 18:08] LABS: Troponin I Only 0.062 NG/ML (0.00-0.045)
[2017-07-31 18:22] LABS: Barbiturates Screen,Urine Negative (Negative); Benzodiazepines Screen,Urine Negative (Negative); Cannabinoid Screen,Urine Positive (Negative); Opiate Screen,Urine Positive (Negative); Phencyclidine Screen,Urine Negative (Negative)
[2017-07-31] MEDS ORDERED: MAGNESIUM SULF RIDER 4 GM in PREMIX 1 EACH IV PRN (22:42)
[2017-07-31] MEDS ORDERED: ZALEPLON 5 MG CAPSULE PO PRN (22:42)
[2017-07-31] MEDS ORDERED: ONDANSETRON 4 MG/2 ML VIAL IV PRN (22:42)
[2017-07-31] MEDS ORDERED: GLUCAGON 1 MG VIAL IM PRN ×2 (22:42)
[2017-07-31] MEDS ORDERED: ALBUTEROL/IPRATROPIUM 3 ML NEB RESP TX PRN (22:42)
[2017-07-31] MEDS ORDERED: DEXTROSE 50% 25 GM/50 ML VIAL IV PRN ×2 (22:42)
[2017-08-01] MEDS: MAGNESIUM SULF RIDER 2 GM in PREMIX 1 EACH IV PRN (00:08)
[2017-08-01] MEDS: ATORVASTATIN 20 MG TABLET PO SCH ×2 (00:08→21:15)
[2017-08-01] MEDS: LEVOFLOXACIN INJ 750 MG in PREMIX 1 EACH IV SCH (00:08)
[2017-08-01] MEDS: APIXABAN 5 MG TABLET PO SCH ×3 (00:08→21:15)
[2017-08-01] MEDS: levETIRAcetam 500 MG TABLET PO SCH ×3 (00:08→21:15)
[2017-08-01] MEDS: CARVEDILOL 25 MG TABLET PO SCH ×3 (00:09→21:15)
[2017-08-01 07:12] LABS: Basophils % 0.1 % (0.0-0.8); Eosinophils # 0.2 10*3/uL (0.0-0.87); Eosinophils % 2.1 % (0.00-10.9); Hematocrit 21.7 VOL% (35.7-47.0); Hemoglobin 7.1 GM/DL (12.0-16.0); Immature Granulocytes % 0.5 %; Immature Granulocytes Absolute 0.04 #; Lymphocytes # 1.9 10*3/uL (1.4-4.0); Lymphocytes % 25.5 % (21.3-54.2); Mean Corpuscular HGB Conc 32.7 GM/DL (32-36); Mean Corpuscular Hemoglobin 28 PG (27-34); Mean Corpuscular Volume 85.4 FL (87-102); Mean Platelet Volume 10.3 FL (9.6-12.0); Monocytes # 0.6 10*3/uL (0.11-0.8); Monocytes % 8.4 % (1.7-12.7); Neutrophils # 4.7 10*3/uL (1.4-7.4); Neutrophils % 63.4 % (38.7-73.9); Platelet Count 527 T/CUMM (130-400); Red Blood Count 2.54 MC/CUMM (3.8-5.5); Red Cell Distribution Width 18.3 % (9.3-17.3); White Blood Count 7.5 T/CUMM (4-12)
[2017-08-01 07:35] LABS: Albumin 2.1 G/DL (3.4-5.0); Bilirubin,Total 0.8 MG/DL (0.2-1.0); Calcium 8.3 MG/DL (8.5-10.1); Osmolality,Calculated 277.4 MOS/KG (273-304); Potassium 3.4 MMOL/L (3.5-5.1); Total Protein 6.4 G/DL (6.4-8.3)
[2017-08-01 07:45] LABS: Folate 7.3 NG/ML (5.4-24.0); Vitamin B12 1025 PG/ML (211-911)
[2017-08-01] MEDS: INSULIN REGULAR 100 UNIT/ML SUBCUT SCH ×4 (07:46→21:16)
[2017-08-01 08:26] LABS: Sedimentation Rate-Westergren 128 MM/HR (0-20)
[2017-08-01] MEDS: FLUoxetine 20 MG CAPSULE PO SCH (08:46)
[2017-08-01] MEDS: LISINOPRIL 20 MG TABLET PO SCH (08:46)
[2017-08-01] MEDS: PANTOPRAZOLE 40 MG TABLET PO SCH ×2 (08:46→21:15)
[2017-08-01] MEDS: ASPIRIN EC 81 MG TABLET PO SCH (08:46)
[2017-08-01] MEDS: METOCLOPRAMIDE 10 MG TABLET PO SCH ×4 (08:47→21:15)
[2017-08-01] MEDS: FUROSEMIDE 40 MG/4 ML VIAL IV SCH ×2 (08:47→17:15)
[2017-08-01] MEDS ORDERED: hydrALAZINE 20 MG/1 ML VIAL IV PRN (11:37)
[2017-08-01] MEDS ORDERED: SODIUM CHLORIDE 0.9% 1,000 ML IV PRN (13:38)
[2017-08-02] MEDS: LEVOFLOXACIN INJ 750 MG in PREMIX 1 EACH IV SCH (02:37)
[2017-08-02 05:24] LABS: Basophils % 0.3 % (0.0-0.8); Eosinophils # 0.1 10*3/uL (0.0-0.87); Eosinophils % 1.5 % (0.00-10.9); Hematocrit 27.2 VOL% (35.7-47.0); Hemoglobin 9.3 GM/DL (12.0-16.0); Immature Granulocytes % 0.4 %; Immature Granulocytes Absolute 0.03 #; Lymphocytes % 26.8 % (21.3-54.2); Mean Corpuscular HGB Conc 34.2 GM/DL (32-36); Mean Corpuscular Hemoglobin 29 PG (27-34); Mean Corpuscular Volume 83.4 FL (87-102); Mean Platelet Volume 9.7 FL (9.6-12.0); Monocytes # 0.8 10*3/uL (0.11-0.8); Monocytes % 11.4 % (1.7-12.7); Neutrophils # 4.4 10*3/uL (1.4-7.4); Neutrophils % 59.6 % (38.7-73.9); Platelet Count 481 T/CUMM (130-400); Red Blood Count 3.26 MC/CUMM (3.8-5.5); Red Cell Distribution Width 17.1 % (9.3-17.3); White Blood Count 7.3 T/CUMM (4-12)
[2017-08-02 06:07] LABS: Calcium 8.4 MG/DL (8.5-10.1); Osmolality,Calculated 271.8 MOS/KG (273-304)
[2017-08-02] MEDS: POTASSIUM CHLORIDE 20 MEQ TABLET PO PRN ×4 (06:35→12:38)
[2017-08-02] MEDS: LISINOPRIL 20 MG TABLET PO SCH (08:18)
[2017-08-02] MEDS: APIXABAN 5 MG TABLET PO SCH ×2 (08:19→21:38)
[2017-08-02] MEDS: levETIRAcetam 500 MG TABLET PO SCH ×2 (08:19→21:38)
[2017-08-02] MEDS: CARVEDILOL 25 MG TABLET PO SCH ×2 (08:19→21:37)
[2017-08-02] MEDS: METOCLOPRAMIDE 10 MG TABLET PO SCH ×4 (08:19→21:37)
[2017-08-02] MEDS: INSULIN REGULAR 100 UNIT/ML SUBCUT SCH ×4 (08:19→21:39)
[2017-08-02] MEDS: ASPIRIN EC 81 MG TABLET PO SCH (08:19)
[2017-08-02] MEDS: FLUoxetine 20 MG CAPSULE PO SCH (08:19)
[2017-08-02] MEDS: PANTOPRAZOLE 40 MG TABLET PO SCH ×2 (08:19→21:38)
[2017-08-02] MEDS: FUROSEMIDE 40 MG/4 ML VIAL IV SCH ×2 (08:19→16:45)
[2017-08-02] MEDS: MAGNESIUM SULF RIDER 2 GM in PREMIX 1 EACH IV PRN (08:20)
[2017-08-02] MEDS: ATORVASTATIN 20 MG TABLET PO SCH (21:38)
[2017-08-03] MEDS: LEVOFLOXACIN INJ 750 MG in PREMIX 1 EACH IV SCH (02:57)
[2017-08-03 05:22] LABS: Basophils % 0.3 % (0.0-0.8); Eosinophils # 0.2 10*3/uL (0.0-0.87); Eosinophils % 2.6 % (0.00-10.9); Hematocrit 28.6 VOL% (35.7-47.0); Hemoglobin 9.4 GM/DL (12.0-16.0); Immature Granulocytes % 0.3 %; Immature Granulocytes Absolute 0.02 #; Lymphocytes # 2.2 10*3/uL (1.4-4.0); Lymphocytes % 31.2 % (21.3-54.2); Mean Corpuscular HGB Conc 32.9 GM/DL (32-36); Mean Corpuscular Hemoglobin 28 PG (27-34); Mean Corpuscular Volume 85.4 FL (87-102); Mean Platelet Volume 9.8 FL (9.6-12.0); Monocytes # 0.8 10*3/uL (0.11-0.8); Monocytes % 11.4 % (1.7-12.7); Neutrophils # 3.8 10*3/uL (1.4-7.4); Neutrophils % 54.2 % (38.7-73.9); Platelet Count 455 T/CUMM (130-400); Red Blood Count 3.35 MC/CUMM (3.8-5.5); Red Cell Distribution Width 17.5 % (9.3-17.3)
[2017-08-03 05:59] LABS: Calcium 8.5 MG/DL (8.5-10.1); Potassium 3.8 MMOL/L (3.5-5.1)
[2017-08-03] MEDS: INSULIN REGULAR 100 UNIT/ML SUBCUT SCH ×2 (08:50→12:00)
[2017-08-03] MEDS: FLUoxetine 20 MG CAPSULE PO SCH (08:51)
[2017-08-03] MEDS: METOCLOPRAMIDE 10 MG TABLET PO SCH ×2 (08:51→12:00)
[2017-08-03] MEDS: PANTOPRAZOLE 40 MG TABLET PO SCH (08:51)
[2017-08-03] MEDS: LISINOPRIL 20 MG TABLET PO SCH (08:51)
[2017-08-03] MEDS: ASPIRIN EC 81 MG TABLET PO SCH (08:51)
[2017-08-03] MEDS: CARVEDILOL 25 MG TABLET PO SCH (08:51)
[2017-08-03] MEDS: APIXABAN 5 MG TABLET PO SCH (08:51)
[2017-08-03] MEDS: levETIRAcetam 500 MG TABLET PO SCH (08:52)
[2017-08-03] MEDS: FUROSEMIDE 40 MG/4 ML VIAL IV SCH (08:52)
[2017-08-03 11:41] VITALS: BP 158/85
== END 2017-08-03 12:04 | disposition home or self-care (01) | DRG 194 ==
LOC: N.ED 16:54 → N.EDINP 22:42 → N.TELEN 23:39
PROVIDERS: ADMIT Internal Medicine; ATTEND Internal Medicine

== ENCOUNTER 2017-09-23 13:07 | Inpatient (IN) ==
[2017-09-23] MEDS ORDERED: SODIUM CHLORIDE 0.9% 2,000 ML IV STA (13:33)
[2017-09-23] MEDS ORDERED: MORPHINE 4 MG/1 ML VIAL IV STA (13:33)
[2017-09-23] MEDS ORDERED: ONDANSETRON 4 MG/2 ML VIAL IV STA (13:33)
[2017-09-23 14:02] LABS: Basophils % 0.3 % (0.0-0.8); Eosinophils % 0.1 % (0.00-10.9); Hematocrit 38.3 VOL% (35.7-47.0); Hemoglobin 12.5 GM/DL (12.0-16.0); Immature Granulocytes % 0.5 %; Immature Granulocytes Absolute 0.07 #; Lymphocytes # 1.3 10*3/uL (1.4-4.0); Lymphocytes % 9.9 % (21.3-54.2); Mean Corpuscular HGB Conc 32.6 GM/DL (32-36); Mean Corpuscular Hemoglobin 27 PG (27-34); Mean Corpuscular Volume 83.3 FL (87-102); Monocytes # 0.7 10*3/uL (0.11-0.8); Monocytes % 5.2 % (1.7-12.7); Neutrophils # 10.9 10*3/uL (1.4-7.4); Platelet Count 337 T/CUMM (130-400); Red Cell Distribution Width 17.1 % (9.3-17.3)
[2017-09-23 14:38] LABS: Lactic Acid 2.2 MMOL/L (0.4-2.0)
[2017-09-23 14:41] LABS: Alanine Aminotransferase 48 U/L (13-56); Albumin 3.3 G/DL (3.4-5.0); Alkaline Phosphatase 146 U/L (45-117); Amylase 77 U/L (25-115); Aspartate Amino Transferase 39 U/L (0-37); Blood Urea Nitrogen 26 MG/DL (7-18); Calcium 10.1 MG/DL (8.5-10.1); Glucose 260 MG/DL (74-106); Osmolality,Calculated 281.2 MOS/KG (273-304); Potassium 4.3 MMOL/L (3.5-5.1); Sodium 134 MMOL/L (136-145); Total Protein 10.3 G/DL (6.4-8.3)
[2017-09-23] MEDS ORDERED: ALBUTEROL 2.5 MG/3 ML NEB RESP TX PRN (15:42)
[2017-09-23] MEDS ORDERED: PANTOPRAZOLE 40 MG VIAL IV SCH (16:00)
[2017-09-23] MEDS ORDERED: hydrALAZINE 20 MG/1 ML VIAL IV PRN (16:17)
[2017-09-23] MEDS ORDERED: ONDANSETRON 4 MG/2 ML VIAL IV PRN (16:25)
[2017-09-23] MEDS ORDERED: niCARdipine INJ 25 MG in SODIUM CHLORIDE 0.9% 240 ML IV SCH (16:30)
[2017-09-23 16:36] LABS: Apearance,Urine CLEAR (Clear); Bilirubin,Urine Negative (Negative); Blood, Urine Small mg/dL (Negative); Glucose,Urine (UA) 150 mg/dL (Negative); Ketones,Urine 5 mg/dL (Negative); Mucus,Urine Occasional /LPF (Occasional); Nitrite,Urine Negative (Negative); Protein,Urine >=500 MG/DL; RBC,Urine 3 /HPF (0-4); Squamous Epithelial Cell,Urine Occasional /HPF (0-10); Urine Color Straw (Yellow); Urine Specific Gravity 1.009 (1.001-1.035); Urine Urobilinogen < 2.0 EU/DL (0.2-1.0); WBC,Urine 1 /HPF (0-6)
[2017-09-23 16:38] LABS: ABG Base Excess -4.1 MMOL/L (-2.5-2.5); ABG Oxygen Saturation 96.1 % (95-100); ABG PCO2 33.9 MM HG (35-48); ABG PH 7.384 (7.35-7.45); ABG PO2 98.5 MM HG (80-95); ABG TCO2 18.3 MMOL/L (23-27); Pt O2 Delivery Device Room Air
[2017-09-23] MEDS ORDERED: GLUCAGON 1 MG VIAL IM PRN (17:02)
[2017-09-23] MEDS ORDERED: DEXTROSE 50% 25 GM/50 ML VIAL IV PRN (17:02)
[2017-09-23] MEDS: SODIUM CHLORIDE 0.9% 1,000 ML IV SCH (17:16)
[2017-09-23] MEDS: METOCLOPRAMIDE 10 MG TABLET PO SCH ×2 (17:43→22:00)
[2017-09-23] MEDS: INSULIN LISPRO 100 UNIT/ML SUBCUT SCH ×2 (17:44→22:10)
[2017-09-23] MEDS ORDERED: HYDROmorphone 2 MG/1 ML VIAL IV PRN (17:54)
[2017-09-23] MEDS ORDERED: MORPHINE 4 MG/1 ML VIAL IV PRN (17:59)
[2017-09-23] MEDS ORDERED: niCARdipine INJ 50 MG in SODIUM CHLORIDE 0.9% 480 ML IV SCH (18:30)
[2017-09-23] MEDS ORDERED: cloNIDine 0.1 MG TABLET PO ONE (19:35)
[2017-09-23] MEDS ORDERED: cloNIDine 0.1 MG/24 HR PATCH TRANSDERM PRN (19:35)
[2017-09-23] MEDS: DILTIAZEM 60 MG TABLET PO SCH ×2 (19:59→22:01)
[2017-09-23] MEDS: MORPHINE 4 MG/1 ML VIAL IV PRN (20:00)
[2017-09-23] MEDS ORDERED: ENOXAPARIN 40 MG/0.4 ML SYRINGE SUBCUT SCH (21:00)
[2017-09-23] MEDS: levETIRAcetam 500 MG TABLET PO SCH (22:00)
[2017-09-23] MEDS: PANTOPRAZOLE 40 MG TABLET PO SCH (22:00)
[2017-09-23] MEDS: APIXABAN 5 MG TABLET PO SCH (22:00)
[2017-09-23] MEDS: CARVEDILOL 25 MG TABLET PO SCH (22:00)
[2017-09-23] MEDS: PIPERACILLIN/TAZOBACTAM 3,375 MG in SODIUM CHLORIDE 0.9% 100 ML IV SCH (22:03)
[2017-09-24 01:33] LABS: Basophils % 0.2 % (0.0-0.8); Eosinophils % 0.1 % (0.00-10.9); Hematocrit 32.4 VOL% (35.7-47.0); Hemoglobin 10.8 GM/DL (12.0-16.0); Immature Granulocytes % 0.4 %; Immature Granulocytes Absolute 0.07 #; Lymphocytes # 2.1 10*3/uL (1.4-4.0); Lymphocytes % 11.3 % (21.3-54.2); Mean Corpuscular HGB Conc 33.3 GM/DL (32-36); Mean Corpuscular Hemoglobin 28 PG (27-34); Mean Corpuscular Volume 82.7 FL (87-102); Mean Platelet Volume 9.2 FL (9.6-12.0); Monocytes # 1.2 10*3/uL (0.11-0.8); Monocytes % 6.2 % (1.7-12.7); Neutrophils # 15.3 10*3/uL (1.4-7.4); Neutrophils % 81.8 % (38.7-73.9); Platelet Count 289 T/CUMM (130-400); Red Blood Count 3.92 MC/CUMM (3.8-5.5); Red Cell Distribution Width 17.5 % (9.3-17.3); White Blood Count 18.7 T/CUMM (4-12)
[2017-09-24 02:02] LABS: Alanine Aminotransferase 31 U/L (13-56); Albumin 2.6 G/DL (3.4-5.0); Alkaline Phosphatase 117 U/L (45-117); Aspartate Amino Transferase 17 U/L (0-37); Bilirubin,Total < 0.39 MG/DL (0.2-1.0); Blood Urea Nitrogen 21 MG/DL (7-18); Calcium 8.4 MG/DL (8.5-10.1); Glucose 173 MG/DL (74-106); Osmolality,Calculated 285.4 MOS/KG (273-304); Potassium 3.3 MMOL/L (3.5-5.1); Sodium 140 MMOL/L (136-145); Total Protein 8.6 G/DL (6.4-8.3)
[2017-09-24] MEDS: SODIUM CHLORIDE 0.9% 1,000 ML IV SCH ×3 (03:17→23:31)
[2017-09-24] MEDS: PIPERACILLIN/TAZOBACTAM 3,375 MG in SODIUM CHLORIDE 0.9% 100 ML IV SCH ×3 (03:35→17:00)
[2017-09-24] MEDS: INSULIN LISPRO 100 UNIT/ML SUBCUT SCH ×4 (08:01→20:02)
[2017-09-24] MEDS: FLUoxetine 20 MG CAPSULE PO SCH (08:56)
[2017-09-24] MEDS: PANTOPRAZOLE 40 MG TABLET PO SCH ×2 (08:56→20:01)
[2017-09-24] MEDS: levETIRAcetam 500 MG TABLET PO SCH ×2 (08:56→20:01)
[2017-09-24] MEDS: METOCLOPRAMIDE 10 MG TABLET PO SCH ×4 (08:57→20:09)
[2017-09-24] MEDS: APIXABAN 5 MG TABLET PO SCH ×2 (08:57→20:09)
[2017-09-24] MEDS: CARVEDILOL 25 MG TABLET PO SCH ×2 (09:01→20:01)
[2017-09-24] MEDS: ASPIRIN EC 81 MG TABLET PO SCH (09:01)
[2017-09-24] MEDS: DILTIAZEM 60 MG TABLET PO SCH ×2 (10:23→20:01)
[2017-09-24] MEDS: MORPHINE 4 MG/1 ML VIAL IV PRN ×2 (18:21→23:32)
[2017-09-25] MEDS: PIPERACILLIN/TAZOBACTAM 3,375 MG in SODIUM CHLORIDE 0.9% 100 ML IV SCH ×3 (02:03→17:16)
[2017-09-25 06:55] LABS: Basophils % 0.5 % (0.0-0.8); Eosinophils # 0.2 10*3/uL (0.0-0.87); Eosinophils % 2.7 % (0.00-10.9); Hematocrit 29.3 VOL% (35.7-47.0); Hemoglobin 9.3 GM/DL (12.0-16.0); Immature Granulocytes % 0.3 %; Immature Granulocytes Absolute 0.02 #; Lymphocytes # 2.5 10*3/uL (1.4-4.0); Lymphocytes % 42.5 % (21.3-54.2); Mean Corpuscular HGB Conc 31.7 GM/DL (32-36); Mean Corpuscular Hemoglobin 27 PG (27-34); Mean Corpuscular Volume 86.4 FL (87-102); Mean Platelet Volume 10.1 FL (9.6-12.0); Monocytes # 0.4 10*3/uL (0.11-0.8); Monocytes % 7.4 % (1.7-12.7); Neutrophils # 2.8 10*3/uL (1.4-7.4); Neutrophils % 46.6 % (38.7-73.9); Platelet Count 248 T/CUMM (130-400); Red Blood Count 3.39 MC/CUMM (3.8-5.5); Red Cell Distribution Width 17.4 % (9.3-17.3)
[2017-09-25 07:29] LABS: Albumin 2.1 G/DL (3.4-5.0); Bilirubin,Total 0.6 MG/DL (0.2-1.0); Osmolality,Calculated 277.7 MOS/KG (273-304); Potassium 3.1 MMOL/L (3.5-5.1); Total Protein 7.2 G/DL (6.4-8.3)
[2017-09-25] MEDS: INSULIN LISPRO 100 UNIT/ML SUBCUT SCH ×4 (07:55→20:15)
[2017-09-25] MEDS: levETIRAcetam 500 MG TABLET PO SCH ×2 (08:59→20:15)
[2017-09-25] MEDS: DILTIAZEM 60 MG TABLET PO SCH ×2 (08:59→20:14)
[2017-09-25] MEDS: METOCLOPRAMIDE 10 MG TABLET PO SCH ×4 (09:00→20:17)
[2017-09-25] MEDS: ASPIRIN EC 81 MG TABLET PO SCH (09:00)
[2017-09-25] MEDS: CARVEDILOL 25 MG TABLET PO SCH ×2 (09:00→20:15)
[2017-09-25] MEDS: FLUoxetine 20 MG CAPSULE PO SCH (09:00)
[2017-09-25] MEDS: PANTOPRAZOLE 40 MG TABLET PO SCH ×2 (09:00→20:14)
[2017-09-25] MEDS: APIXABAN 5 MG TABLET PO SCH ×2 (09:01→20:15)
[2017-09-25] MEDS: SODIUM CHLORIDE 0.9% 1,000 ML IV SCH (09:02)
[2017-09-25] MEDS: MORPHINE 4 MG/1 ML VIAL IV PRN ×2 (09:23→18:40)
[2017-09-25] MEDS ORDERED: POTASSIUM CHLORIDE 20 MEQ TABLET PO ONE (10:25)
[2017-09-25] MEDS ORDERED: POTASSIUM CHLORIDE INJ 10 MEQ in LACTATED RINGERS 1,000 ML IV SCH (10:30)
[2017-09-25] MEDS: LACTATED RINGERS 1,000 ML IV SCH (15:02)
[2017-09-26] MEDS: PIPERACILLIN/TAZOBACTAM 3,375 MG in SODIUM CHLORIDE 0.9% 100 ML IV SCH ×3 (01:50→17:19)
[2017-09-26] MEDS: MORPHINE 4 MG/1 ML VIAL IV PRN ×3 (06:02→20:45)
[2017-09-26 07:05] LABS: Alanine Aminotransferase 74 U/L (13-56); Albumin 2.2 G/DL (3.4-5.0); Alkaline Phosphatase 184 U/L (45-117); Aspartate Amino Transferase 43 U/L (0-37); Bilirubin,Total < 0.39 MG/DL (0.2-1.0); Blood Urea Nitrogen 13 MG/DL (7-18); Calcium 8.1 MG/DL (8.5-10.1); Glucose 126 MG/DL (74-106); Osmolality,Calculated 278.5 MOS/KG (273-304); Potassium 3.3 MMOL/L (3.5-5.1); Sodium 139 MMOL/L (136-145); Total Protein 7.4 G/DL (6.4-8.3)
[2017-09-26] MEDS: INSULIN LISPRO 100 UNIT/ML SUBCUT SCH ×4 (07:51→20:58)
[2017-09-26] MEDS ORDERED: POTASSIUM CHLORIDE 20 MEQ TABLET PO ONE (08:23)
[2017-09-26 08:25] LABS: Hepatitis A Ab IgM Quant 0.14 Index; Hepatitis A Ab IgM Result Negative (Negative); Hepatitis B Core IgM Quant 0.64 Index; Hepatitis B Core IgM Result Negative (Negative); Hepatitis B Surface Ag Quant 0.15 Index; Hepatitis B Surface Ag Result Negative (Negative); Hepatitis C Virus Ab Result Negative (Negative)
[2017-09-26] MEDS: METOCLOPRAMIDE 10 MG TABLET PO SCH ×4 (09:23→20:53)
[2017-09-26] MEDS: LACTATED RINGERS 1,000 ML IV SCH ×2 (09:23→17:19)
[2017-09-26] MEDS: PANTOPRAZOLE 40 MG TABLET PO SCH ×2 (09:24→20:53)
[2017-09-26] MEDS: FLUoxetine 20 MG CAPSULE PO SCH (09:26)
[2017-09-26] MEDS: APIXABAN 5 MG TABLET PO SCH ×2 (09:27→20:53)
[2017-09-26] MEDS: levETIRAcetam 500 MG TABLET PO SCH ×2 (09:28→20:53)
[2017-09-26] MEDS: CARVEDILOL 25 MG TABLET PO SCH ×2 (09:28→20:54)
[2017-09-26] MEDS: DILTIAZEM 60 MG TABLET PO SCH ×2 (09:28→20:52)
[2017-09-26] MEDS: ASPIRIN EC 81 MG TABLET PO SCH (09:29)
[2017-09-27] MEDS: PIPERACILLIN/TAZOBACTAM 3,375 MG in SODIUM CHLORIDE 0.9% 100 ML IV SCH ×3 (01:20→18:03)
[2017-09-27] MEDS: MORPHINE 4 MG/1 ML VIAL IV PRN ×4 (05:46→23:51)
[2017-09-27] MEDS: LACTATED RINGERS 1,000 ML IV SCH ×2 (05:47→14:00)
[2017-09-27] MEDS: METOCLOPRAMIDE 10 MG TABLET PO SCH ×4 (08:45→20:07)
[2017-09-27] MEDS: INSULIN LISPRO 100 UNIT/ML SUBCUT SCH ×4 (08:50→23:58)
[2017-09-27] MEDS: APIXABAN 5 MG TABLET PO SCH ×2 (09:58→20:07)
[2017-09-27] MEDS: DILTIAZEM 60 MG TABLET PO SCH ×2 (09:58→20:05)
[2017-09-27] MEDS: PANTOPRAZOLE 40 MG TABLET PO SCH ×2 (09:58→20:06)
[2017-09-27] MEDS: FLUoxetine 20 MG CAPSULE PO SCH (09:58)
[2017-09-27] MEDS: ASPIRIN EC 81 MG TABLET PO SCH (09:58)
[2017-09-27] MEDS: levETIRAcetam 500 MG TABLET PO SCH ×2 (09:58→20:07)
[2017-09-27] MEDS: CARVEDILOL 25 MG TABLET PO SCH ×2 (09:58→20:07)
[2017-09-28] MEDS: PIPERACILLIN/TAZOBACTAM 3,375 MG in SODIUM CHLORIDE 0.9% 100 ML IV SCH ×2 (03:35→10:39)
[2017-09-28] MEDS: LACTATED RINGERS 1,000 ML IV SCH ×2 (03:35→10:39)
[2017-09-28] MEDS: MORPHINE 4 MG/1 ML VIAL IV PRN (05:30)
[2017-09-28] MEDS: CARVEDILOL 25 MG TABLET PO SCH (08:50)
[2017-09-28] MEDS: PANTOPRAZOLE 40 MG TABLET PO SCH (08:50)
[2017-09-28] MEDS: DILTIAZEM 60 MG TABLET PO SCH (08:50)
[2017-09-28] MEDS: FLUoxetine 20 MG CAPSULE PO SCH (08:51)
[2017-09-28] MEDS: APIXABAN 5 MG TABLET PO SCH (08:51)
[2017-09-28] MEDS: METOCLOPRAMIDE 10 MG TABLET PO SCH ×2 (08:51→12:21)
[2017-09-28] MEDS: levETIRAcetam 500 MG TABLET PO SCH (08:51)
[2017-09-28] MEDS: ASPIRIN EC 81 MG TABLET PO SCH (08:52)
[2017-09-28] MEDS: INSULIN LISPRO 100 UNIT/ML SUBCUT SCH ×2 (08:52→11:55)
[2017-09-28 11:43] VITALS: BP 136/66
== END 2017-09-28 15:07 | disposition home or self-care (01) | DRG 282 ==
LOC: EDUNIT# → N.ED 13:07 → SUATTDRO 15:42 → N.EDINP 15:42 → N.CC 16:10 → N.5E 09-24 17:36
PROVIDERS: ADMIT Internal Medicine Infectious Disease; ATTEND Family Medicine

== ENCOUNTER 2017-10-10 19:39 | Inpatient (IN) ==
[2017-10-10] MEDS ORDERED: PANTOPRAZOLE 40 MG VIAL IV STA (20:22)
[2017-10-10] MEDS ORDERED: ONDANSETRON 4 MG/2 ML VIAL IV STA (20:22)
[2017-10-10] MEDS ORDERED: MORPHINE 4 MG/1 ML VIAL IV STA (20:22)
[2017-10-10] MEDS ORDERED: SODIUM CHLORIDE 0.9% 1,000 ML IV STA (20:22)
[2017-10-10 21:13] LABS: Basophils # 0.1 10*3/uL (0.0-0.2); Basophils % 0.2 % (0.0-0.8); Hematocrit 31.5 VOL% (35.7-47.0); Hemoglobin 10.5 GM/DL (12.0-16.0); Immature Granulocytes % 1.2 %; Immature Granulocytes Absolute 0.36 #; Lymphocytes # 1.9 10*3/uL (1.4-4.0); Lymphocytes % 6.4 % (21.3-54.2); Mean Corpuscular HGB Conc 33.3 GM/DL (32-36); Mean Corpuscular Hemoglobin 28 PG (27-34); Mean Corpuscular Volume 82.9 FL (87-102); Mean Platelet Volume 10.8 FL (9.6-12.0); Monocytes # 1.6 10*3/uL (0.11-0.8); Monocytes % 5.2 % (1.7-12.7); Neutrophils # 26.2 10*3/uL (1.4-7.4); Platelet Count 517 T/CUMM (130-400); White Blood Count 30.1 T/CUMM (4-12)
[2017-10-10 21:43] LABS: Alanine Aminotransferase 21 U/L (13-56); Albumin 2.1 G/DL (3.4-5.0); Alkaline Phosphatase 102 U/L (45-117); Amylase 33 U/L (25-115); Aspartate Amino Transferase 12 U/L (0-37); Blood Urea Nitrogen 30 MG/DL (7-18); Calcium 10.1 MG/DL (8.5-10.1); Glucose 478 MG/DL (74-106); Osmolality,Calculated 292.4 MOS/KG (273-304); Potassium 3.8 MMOL/L (3.5-5.1); Sodium 133 MMOL/L (136-145); Total Protein 9.7 G/DL (6.4-8.3); Troponin I Only 0.025 NG/ML (0.00-0.045)
[2017-10-10] MEDS ORDERED: INSULIN REGULAR 100 UNIT/ML IV STA (21:51)
[2017-10-10] MEDS ORDERED: MAGNESIUM SULF RIDER 2 GM in PREMIX 1 EACH IV STA (21:51)
[2017-10-10 21:54] LABS: Lactic Acid 2.3 MMOL/L (0.4-2.0)
[2017-10-10 22:09] LABS: Anisocytosis 1+; Hypochromasia 1+; Lymphocytes 5 % (20-55); Macrocytosis 1+; Microcytosis Slight; Platelet Estimate Increased; Polychromasia Few; Segmented Neutrophils 89 % (50-85); Total Cells Counted 100
[2017-10-10 22:09] LABS: ABG Base Excess -3.5 MMOL/L (-2.5-2.5); ABG HCO3 19.8 MMOL/L (20-26); ABG Oxygen Saturation 96.1 % (95-100); ABG PCO2 29.7 MM HG (35-48); ABG PH 7.442 (7.35-7.45); ABG PO2 100.1 MM HG (80-95); ABG TCO2 20.7 MMOL/L (23-27)
[2017-10-11] MEDS ORDERED: MAGNESIUM SULF RIDER 4 GM in PREMIX 1 EACH IV PRN (01:01)
[2017-10-11] MEDS ORDERED: DEXTROSE 50% 25 GM/50 ML VIAL IV PRN ×2 (01:01)
[2017-10-11] MEDS ORDERED: SODIUM BICARB INJ 100 MEQ in STERILE WATER INJ 400 ML IV PRN (01:01)
[2017-10-11] MEDS ORDERED: SODIUM CHLORIDE 0.9% 1,000 ML IV ONE (01:01)
[2017-10-11] MEDS ORDERED: SODIUM PHOSPHATE INJ 17.6 MMOL in SODIUM CHLORIDE 0.9% 250 ML IV PRN (01:01)
[2017-10-11] MEDS ORDERED: MAGNESIUM SULF RIDER 2 GM in PREMIX 1 EACH IV PRN (01:01)
[2017-10-11] MEDS ORDERED: cloNIDine 0.1 MG/24 HR PATCH TRANSDERM PRN (01:12)
[2017-10-11] MEDS ORDERED: INSULIN REGULAR DRIP 100 ML IV SCH (01:30)
[2017-10-11] MEDS: SODIUM CHLORIDE 0.9% 1,000 ML IV SCH ×2 (02:05→05:45)
[2017-10-11 02:12] LABS: Apearance,Urine Slightly Hazy (Clear); Bilirubin,Urine Negative (Negative); Blood, Urine Moderate mg/dL (Negative); Glucose,Urine (UA) >=500 mg/dL (Negative); Hyaline Casts,Urine 22 /LPF (0-3); Ketones,Urine 5 mg/dL (Negative); Mucus,Urine Occasional /LPF (Occasional); Nitrite,Urine Negative (Negative); Protein,Urine 100 MG/DL; RBC,Urine 4 /HPF (0-4); Squamous Epithelial Cell,Urine Occasional /HPF (0-10); Urine Color Yellow (Yellow); Urine Specific Gravity 1.026 (1.001-1.035); Urine Urobilinogen < 2.0 EU/DL (0.2-1.0); WBC,Urine 1 /HPF (0-6)
[2017-10-11 03:49] LABS: Basophils # 0.1 10*3/uL (0.0-0.2); Basophils % 0.2 % (0.0-0.8); Hemoglobin 10.6 GM/DL (12.0-16.0); Immature Granulocytes % 1.8 %; Immature Granulocytes Absolute 0.49 #; Lymphocytes % 7.1 % (21.3-54.2); Mean Corpuscular HGB Conc 33.1 GM/DL (32-36); Mean Corpuscular Hemoglobin 28 PG (27-34); Mean Corpuscular Volume 82.9 FL (87-102); Mean Platelet Volume 10.5 FL (9.6-12.0); Monocytes # 0.7 10*3/uL (0.11-0.8); Monocytes % 2.4 % (1.7-12.7); Neutrophils # 24.5 10*3/uL (1.4-7.4); Neutrophils % 88.5 % (38.7-73.9); Platelet Count 477 T/CUMM (130-400); Red Blood Count 3.86 MC/CUMM (3.8-5.5); Red Cell Distribution Width 18.1 % (9.3-17.3); White Blood Count 27.7 T/CUMM (4-12)
[2017-10-11] MEDS: PIPERACILLIN/TAZOBACTAM 3,375 MG in SODIUM CHLORIDE 0.9% 100 ML IV SCH ×3 (03:53→19:27)
[2017-10-11] MEDS: MORPHINE 4 MG/1 ML VIAL IV PRN ×4 (03:57→22:47)
[2017-10-11 04:16] LABS: Calcium 9.5 MG/DL (8.5-10.1); Osmolality,Calculated 289.2 MOS/KG (273-304); Potassium 3.7 MMOL/L (3.5-5.1)
[2017-10-11 04:20] LABS: Band Neutrophils 1 % (0-10); Lymphocytes 11 % (20-55); Segmented Neutrophils 87 % (50-85)
[2017-10-11 04:21] LABS: Hypochromasia 1+; Polychromasia Few; Target Cells Few
[2017-10-11 04:22] LABS: Burr Cells Few; Platelet Estimate Increased
[2017-10-11 04:23] LABS: Anisocytosis 1+; Macrocytosis 1+; Total Cells Counted 100
[2017-10-11 05:34] LABS: Basophils # 0.1 10*3/uL (0.0-0.2); Basophils % 0.2 % (0.0-0.8); Eosinophils % 0.1 % (0.00-10.9); Hematocrit 26.7 VOL% (35.7-47.0); Hemoglobin 8.8 GM/DL (12.0-16.0); Immature Granulocytes % 1.6 %; Immature Granulocytes Absolute 0.48 #; Lymphocytes # 2.2 10*3/uL (1.4-4.0); Lymphocytes % 7.2 % (21.3-54.2); Mean Corpuscular Hemoglobin 27 PG (27-34); Mean Corpuscular Volume 82.9 FL (87-102); Mean Platelet Volume 10.3 FL (9.6-12.0); Monocytes # 1.9 10*3/uL (0.11-0.8); Monocytes % 6.2 % (1.7-12.7); Neutrophils # 25.6 10*3/uL (1.4-7.4); Neutrophils % 84.7 % (38.7-73.9); Platelet Count 491 T/CUMM (130-400); Red Blood Count 3.22 MC/CUMM (3.8-5.5); Red Cell Distribution Width 18.1 % (9.3-17.3); White Blood Count 30.3 T/CUMM (4-12)
[2017-10-11 05:42] LABS: INR 1.1; PT Patient Result 11.2 SECS; Partial Thromboplastin Time 28.2 SECS (0-40)
[2017-10-11 05:59] LABS: Calcium 8.8 MG/DL (8.5-10.1); Osmolality,Calculated 289.8 MOS/KG (273-304)
[2017-10-11] MEDS ORDERED: SODIUM CHLORIDE 0.9% 1,000 ML IV SCH (06:04)
[2017-10-11 06:11] LABS: Anisocytosis 1+; Poikilocytosis 1+; Polychromasia 1+
[2017-10-11 06:12] LABS: Target Cells Slight
[2017-10-11 06:20] LABS: Ferritin 1490.9 ng/ml (8-252)
[2017-10-11 06:47] LABS: Sedimentation Rate-Westergren 120 MM/HR (0-20)
[2017-10-11] MEDS: POTASSIUM CHLORIDE RIDER 10 MEQ in PREMIX 1 EACH IV PRN ×5 (07:05→12:30)
[2017-10-11 07:32] LABS: Folate 4.2 NG/ML (5.4-24.0); Vitamin B12 1216 PG/ML (211-911)
[2017-10-11] MEDS: VANCOMYCIN INJ 1,000 MG in SODIUM CHLORIDE 0.9% 250 ML IV SCH (09:15)
[2017-10-11] MEDS: METOCLOPRAMIDE 10 MG TABLET PO SCH ×4 (09:16→22:16)
[2017-10-11] MEDS: levETIRAcetam 500 MG TABLET PO SCH ×2 (09:16→22:14)
[2017-10-11] MEDS: PANTOPRAZOLE 40 MG TABLET PO SCH ×2 (09:16→22:14)
[2017-10-11] MEDS: APIXABAN 5 MG TABLET PO SCH ×2 (09:17→22:15)
[2017-10-11 09:54] LABS: Hemoglobin A1 (Alkaline) 97.9 % (96.5-98.5); Hemoglobin A2 (Alkaline) 2.1 % (1.5-3.5)
[2017-10-11 10:36] LABS: Calcium 6.5 MG/DL (8.5-10.1); Osmolality,Calculated 291.7 MOS/KG (273-304)
[2017-10-11 10:37] LABS: Potassium 2.5 MMOL/L (3.5-5.1)
[2017-10-11] MEDS: DEXTROSE 5% NACL 0.9% 1,000 ML IV SCH ×3 (11:00→22:18)
[2017-10-11] MEDS: FLUoxetine 20 MG CAPSULE PO SCH (12:08)
[2017-10-11] MEDS: DILTIAZEM CD 180 MG CAPSULE PO SCH ×2 (12:08→22:14)
[2017-10-11 13:41] LABS: Basophils % 0.1 % (0.0-0.8); Eosinophils # 0.1 10*3/uL (0.0-0.87); Eosinophils % 0.3 % (0.00-10.9); Hematocrit 23.9 VOL% (35.7-47.0); Hemoglobin 8.1 GM/DL (12.0-16.0); Immature Granulocytes % 1.2 %; Immature Granulocytes Absolute 0.27 #; Lymphocytes # 2.1 10*3/uL (1.4-4.0); Lymphocytes % 9.1 % (21.3-54.2); Mean Corpuscular HGB Conc 33.9 GM/DL (32-36); Mean Corpuscular Hemoglobin 28 PG (27-34); Mean Corpuscular Volume 81.8 FL (87-102); Mean Platelet Volume 10.1 FL (9.6-12.0); Monocytes # 1.5 10*3/uL (0.11-0.8); Monocytes % 6.3 % (1.7-12.7); Neutrophils # 19.3 10*3/uL (1.4-7.4); Platelet Count 441 T/CUMM (130-400); Red Blood Count 2.92 MC/CUMM (3.8-5.5); Red Cell Distribution Width 18.4 % (9.3-17.3); White Blood Count 23.2 T/CUMM (4-12)
[2017-10-11] MEDS: POTASSIUM CHLORIDE RIDER 10 MEQ in PREMIX 1 EACH IV SCH ×4 (13:55→19:07)
[2017-10-11 13:56] LABS: Calcium 8.5 MG/DL (8.5-10.1); Osmolality,Calculated 281.8 MOS/KG (273-304); Potassium 3.7 MMOL/L (3.5-5.1)
[2017-10-11 15:03] LABS: Band Neutrophils 2 % (0-10); Eosinophils 2 % (0-10); Lymphocytes 14 % (20-55); Segmented Neutrophils 80 % (50-85); Total Cells Counted 100
[2017-10-11 15:05] LABS: Giant Platelets Few; Hypochromasia 1+; Microcytosis Slight; Platelet Estimate Increased
[2017-10-11 18:34] LABS: Calcium 8.3 MG/DL (8.5-10.1); Osmolality,Calculated 280.1 MOS/KG (273-304); Potassium 5.6 MMOL/L (3.5-5.1)
[2017-10-11] MEDS ORDERED: GLUCAGON 1 MG VIAL IM PRN (18:45)
[2017-10-11] MEDS: SODIUM CHLORIDE 0.45% 1,000 ML IV SCH (19:25)
[2017-10-11] MEDS: ASPIRIN EC 81 MG TABLET PO SCH (19:27)
[2017-10-11] MEDS: CARVEDILOL 25 MG TABLET PO SCH ×2 (19:27→22:14)
[2017-10-11 21:48] LABS: Calcium 7.9 MG/DL (8.5-10.1); Osmolality,Calculated 288.1 MOS/KG (273-304); Potassium 3.8 MMOL/L (3.5-5.1)
[2017-10-11] MEDS: metFORMIN 500 MG TABLET PO SCH (21:53)
[2017-10-11] MEDS: glyBURIDE 5 MG TABLET PO SCH (22:10)
[2017-10-11] MEDS: AMOXICILLIN/CLAV 875 MG TABLET PO SCH (22:14)
[2017-10-11] MEDS: ATORVASTATIN 20 MG TABLET PO SCH (22:14)
[2017-10-11] MEDS: INSULIN LISPRO 100 UNIT/ML SUBCUT SCH ×2 (22:15→22:18)
[2017-10-12] MEDS: DEXTROSE 5% NACL 0.9% 1,000 ML IV SCH ×2 (04:33→04:34)
[2017-10-12] MEDS: SODIUM CHLORIDE 0.45% 1,000 ML IV SCH ×4 (04:34→19:51)
[2017-10-12] MEDS: PIPERACILLIN/TAZOBACTAM 3,375 MG in SODIUM CHLORIDE 0.9% 100 ML IV SCH ×3 (05:30→21:06)
[2017-10-12] MEDS ORDERED: ACETAMINOPHEN 325 MG TABLET PO ONE (07:34)
[2017-10-12 08:31] LABS: Basophils % 0.3 % (0.0-0.8); Eosinophils # 0.1 10*3/uL (0.0-0.87); Eosinophils % 0.5 % (0.00-10.9); Hemoglobin 7.4 GM/DL (12.0-16.0); Immature Granulocytes % 0.9 %; Immature Granulocytes Absolute 0.14 #; Lymphocytes # 1.7 10*3/uL (1.4-4.0); Lymphocytes % 11.1 % (21.3-54.2); Mean Corpuscular HGB Conc 32.2 GM/DL (32-36); Mean Corpuscular Hemoglobin 28 PG (27-34); Mean Corpuscular Volume 86.5 FL (87-102); Mean Platelet Volume 11.2 FL (9.6-12.0); Monocytes # 0.9 10*3/uL (0.11-0.8); Monocytes % 6.2 % (1.7-12.7); Neutrophils # 12.3 10*3/uL (1.4-7.4); Platelet Count 254 T/CUMM (130-400); Red Blood Count 2.66 MC/CUMM (3.8-5.5); Red Cell Distribution Width 18.9 % (9.3-17.3); White Blood Count 15.2 T/CUMM (4-12)
[2017-10-12 09:10] LABS: Calcium 8.1 MG/DL (8.5-10.1); Osmolality,Calculated 274.1 MOS/KG (273-304); Potassium 3.7 MMOL/L (3.5-5.1)
[2017-10-12] MEDS: INSULIN LISPRO 100 UNIT/ML SUBCUT SCH ×4 (09:10→21:05)
[2017-10-12] MEDS: METOCLOPRAMIDE 10 MG TABLET PO SCH ×4 (09:10→21:03)
[2017-10-12] MEDS: metFORMIN 500 MG TABLET PO SCH ×3 (09:11→17:35)
[2017-10-12] MEDS: glyBURIDE 5 MG TABLET PO SCH ×3 (09:11→17:35)
[2017-10-12] MEDS: ASPIRIN EC 81 MG TABLET PO SCH (09:11)
[2017-10-12] MEDS: AMOXICILLIN/CLAV 875 MG TABLET PO SCH (09:11)
[2017-10-12] MEDS: FLUoxetine 20 MG CAPSULE PO SCH (09:12)
[2017-10-12] MEDS: PANTOPRAZOLE 40 MG TABLET PO SCH ×2 (09:12→21:03)
[2017-10-12] MEDS: levETIRAcetam 500 MG TABLET PO SCH ×2 (09:12→21:03)
[2017-10-12] MEDS: APIXABAN 5 MG TABLET PO SCH ×2 (09:12→21:03)
[2017-10-12] MEDS: CARVEDILOL 25 MG TABLET PO SCH ×2 (09:14→21:03)
[2017-10-12] MEDS: LISINOPRIL 20 MG TABLET PO SCH (09:14)
[2017-10-12] MEDS: DILTIAZEM CD 180 MG CAPSULE PO SCH ×2 (09:15→21:05)
[2017-10-12] MEDS: VANCOMYCIN INJ 1,000 MG in SODIUM CHLORIDE 0.9% 250 ML IV SCH (09:21)
[2017-10-12 09:28] LABS: % Iron Saturation 17.6 % (18-50)
[2017-10-12 09:41] LABS: Hypochromasia 2+; Microcytosis 2+
[2017-10-12] MEDS: MORPHINE 4 MG/1 ML VIAL IV PRN ×2 (14:42→19:06)
[2017-10-12] MEDS: ATORVASTATIN 20 MG TABLET PO SCH (21:03)
[2017-10-13] MEDS: DEXTROSE 5% NACL 0.9% 1,000 ML IV SCH (00:10)
[2017-10-13] MEDS: MORPHINE 4 MG/1 ML VIAL IV PRN ×3 (02:42→19:04)
[2017-10-13] MEDS: SODIUM CHLORIDE 0.45% 1,000 ML IV SCH ×3 (03:51→18:41)
[2017-10-13 04:42] LABS: Basophils % 0.3 % (0.0-0.8); Eosinophils # 0.1 10*3/uL (0.0-0.87); Eosinophils % 0.5 % (0.00-10.9); Hematocrit 21.7 VOL% (35.7-47.0); Hemoglobin 7.1 GM/DL (12.0-16.0); Immature Granulocytes % 1.4 %; Immature Granulocytes Absolute 0.19 #; Lymphocytes # 1.9 10*3/uL (1.4-4.0); Lymphocytes % 13.6 % (21.3-54.2); Mean Corpuscular HGB Conc 32.7 GM/DL (32-36); Mean Corpuscular Hemoglobin 28 PG (27-34); Mean Corpuscular Volume 84.8 FL (87-102); Mean Platelet Volume 10.3 FL (9.6-12.0); Monocytes # 0.9 10*3/uL (0.11-0.8); Monocytes % 6.2 % (1.7-12.7); Platelet Count 418 T/CUMM (130-400); Red Blood Count 2.56 MC/CUMM (3.8-5.5); Red Cell Distribution Width 18.8 % (9.3-17.3); White Blood Count 14.1 T/CUMM (4-12)
[2017-10-13 05:15] LABS: Calcium 8.1 MG/DL (8.5-10.1); Potassium 3.2 MMOL/L (3.5-5.1)
[2017-10-13 05:25] LABS: Eosinophils 2 % (0-10); Giant Platelets Few; Hypochromasia 1+; Lymphocytes 20 % (20-55); Microcytosis 1+; Platelet Estimate Increased; Segmented Neutrophils 76 % (50-85); Total Cells Counted 100
[2017-10-13] MEDS: PIPERACILLIN/TAZOBACTAM 3,375 MG in SODIUM CHLORIDE 0.9% 100 ML IV SCH ×3 (05:40→21:19)
[2017-10-13] MEDS: INSULIN LISPRO 100 UNIT/ML SUBCUT SCH ×4 (09:35→21:18)
[2017-10-13] MEDS: METOCLOPRAMIDE 10 MG TABLET PO SCH ×4 (09:36→21:19)
[2017-10-13] MEDS: metFORMIN 500 MG TABLET PO SCH ×3 (09:38→17:20)
[2017-10-13] MEDS: levETIRAcetam 500 MG TABLET PO SCH ×2 (09:38→21:18)
[2017-10-13] MEDS: PANTOPRAZOLE 40 MG TABLET PO SCH ×2 (09:38→21:18)
[2017-10-13] MEDS: LISINOPRIL 20 MG TABLET PO SCH (09:38)
[2017-10-13] MEDS: CARVEDILOL 25 MG TABLET PO SCH ×2 (09:39→21:18)
[2017-10-13] MEDS: FLUoxetine 20 MG CAPSULE PO SCH (09:40)
[2017-10-13] MEDS: glyBURIDE 5 MG TABLET PO SCH ×3 (09:41→17:20)
[2017-10-13] MEDS: ASPIRIN EC 81 MG TABLET PO SCH (09:42)
[2017-10-13] MEDS ORDERED: SODIUM CHLORIDE 0.9% 1,000 ML IV PRN (09:49)
[2017-10-13] MEDS: APIXABAN 5 MG TABLET PO SCH ×2 (10:45→21:16)
[2017-10-13] MEDS: DILTIAZEM CD 180 MG CAPSULE PO SCH ×2 (10:45→21:18)
[2017-10-13] MEDS: VANCOMYCIN INJ 1,000 MG in SODIUM CHLORIDE 0.9% 250 ML IV SCH (11:40)
[2017-10-13] MEDS: POTASSIUM CHLORIDE RIDER 10 MEQ in PREMIX 1 EACH IV PRN ×4 (12:27→16:25)
[2017-10-13] MEDS: ATORVASTATIN 20 MG TABLET PO SCH (21:18)
[2017-10-14 04:58] LABS: Basophils % 0.2 % (0.0-0.8); Eosinophils # 0.1 10*3/uL (0.0-0.87); Eosinophils % 0.5 % (0.00-10.9); Hematocrit 27.6 VOL% (35.7-47.0); Immature Granulocytes % 1.1 %; Immature Granulocytes Absolute 0.19 #; Lymphocytes # 1.9 10*3/uL (1.4-4.0); Lymphocytes % 10.8 % (21.3-54.2); Mean Corpuscular Hemoglobin 29 PG (27-34); Mean Corpuscular Volume 87.1 FL (87-102); Mean Platelet Volume 9.6 FL (9.6-12.0); Monocytes # 1.2 10*3/uL (0.11-0.8); Monocytes % 6.6 % (1.7-12.7); Neutrophils % 80.8 % (38.7-73.9); Platelet Count 398 T/CUMM (130-400); Red Blood Count 3.17 MC/CUMM (3.8-5.5); Red Cell Distribution Width 16.7 % (9.3-17.3); White Blood Count 17.4 T/CUMM (4-12)
[2017-10-14 05:02] LABS: Hemoglobin 9.1 GM/DL (12.0-16.0)
[2017-10-14] MEDS: PIPERACILLIN/TAZOBACTAM 3,375 MG in SODIUM CHLORIDE 0.9% 100 ML IV SCH (05:05)
[2017-10-14 05:36] LABS: Calcium 7.9 MG/DL (8.5-10.1); Potassium 3.4 MMOL/L (3.5-5.1)
[2017-10-14] MEDS: SODIUM CHLORIDE 0.45% 1,000 ML IV SCH ×3 (05:36→18:08)
[2017-10-14] MEDS: INSULIN LISPRO 100 UNIT/ML SUBCUT SCH ×4 (08:44→21:51)
[2017-10-14] MEDS: METOCLOPRAMIDE 10 MG TABLET PO SCH ×4 (08:44→21:51)
[2017-10-14] MEDS: glyBURIDE 5 MG TABLET PO SCH ×3 (08:44→17:50)
[2017-10-14] MEDS: MORPHINE 4 MG/1 ML VIAL IV PRN ×4 (08:45→23:03)
[2017-10-14] MEDS: metFORMIN 500 MG TABLET PO SCH ×3 (08:45→17:50)
[2017-10-14] MEDS: DILTIAZEM CD 180 MG CAPSULE PO SCH ×2 (08:52→21:51)
[2017-10-14] MEDS: ASPIRIN EC 81 MG TABLET PO SCH (08:52)
[2017-10-14] MEDS: PANTOPRAZOLE 40 MG TABLET PO SCH ×2 (08:52→21:51)
[2017-10-14] MEDS: CARVEDILOL 25 MG TABLET PO SCH ×2 (08:53→21:51)
[2017-10-14] MEDS: levETIRAcetam 500 MG TABLET PO SCH ×2 (08:53→21:51)
[2017-10-14] MEDS: LISINOPRIL 20 MG TABLET PO SCH (08:53)
[2017-10-14] MEDS ORDERED: DEXTROSE 50% 25 GM/50 ML VIAL IV PRN (08:54)
[2017-10-14] MEDS ORDERED: GLUCAGON 1 MG VIAL IM PRN (08:54)
[2017-10-14] MEDS: APIXABAN 5 MG TABLET PO SCH ×2 (09:52→21:54)
[2017-10-14] MEDS: FLUoxetine 20 MG CAPSULE PO SCH (09:53)
[2017-10-14] MEDS: POTASSIUM CHLORIDE RIDER 10 MEQ in PREMIX 1 EACH IV PRN ×3 (09:53→16:10)
[2017-10-14] MEDS: VANCOMYCIN INJ 1,000 MG in SODIUM CHLORIDE 0.9% 250 ML IV SCH (12:05)
[2017-10-14] MEDS: ATORVASTATIN 20 MG TABLET PO SCH (21:51)
[2017-10-15] MEDS: SODIUM CHLORIDE 0.45% 1,000 ML IV SCH ×3 (01:28→19:59)
[2017-10-15] MEDS: VANCOMYCIN INJ 1,000 MG in SODIUM CHLORIDE 0.9% 250 ML IV SCH (05:48)
[2017-10-15] MEDS: MORPHINE 4 MG/1 ML VIAL IV PRN ×3 (06:22→21:26)
[2017-10-15 07:41] LABS: Basophils % 0.2 % (0.0-0.8); Eosinophils # 0.1 10*3/uL (0.0-0.87); Eosinophils % 0.6 % (0.00-10.9); Hematocrit 30.1 VOL% (35.7-47.0); Hemoglobin 9.8 GM/DL (12.0-16.0); Immature Granulocytes Absolute 0.16 #; Lymphocytes # 1.7 10*3/uL (1.4-4.0); Lymphocytes % 10.3 % (21.3-54.2); Mean Corpuscular HGB Conc 32.6 GM/DL (32-36); Mean Corpuscular Hemoglobin 29 PG (27-34); Mean Corpuscular Volume 88.5 FL (87-102); Mean Platelet Volume 9.8 FL (9.6-12.0); Monocytes # 1.1 10*3/uL (0.11-0.8); Monocytes % 6.6 % (1.7-12.7); Neutrophils % 81.3 % (38.7-73.9); Platelet Count 437 T/CUMM (130-400); Red Cell Distribution Width 17.2 % (9.3-17.3)
[2017-10-15 08:07] LABS: Calcium 8.1 MG/DL (8.5-10.1); Osmolality,Calculated 272.2 MOS/KG (273-304); Potassium 4.1 MMOL/L (3.5-5.1)
[2017-10-15] MEDS: METOCLOPRAMIDE 10 MG TABLET PO SCH ×3 (08:42→19:13)
[2017-10-15] MEDS: glyBURIDE 5 MG TABLET PO SCH ×3 (08:42→19:15)
[2017-10-15] MEDS: metFORMIN 500 MG TABLET PO SCH ×3 (08:43→19:15)
[2017-10-15] MEDS: APIXABAN 5 MG TABLET PO SCH ×2 (08:43→21:31)
[2017-10-15] MEDS: PANTOPRAZOLE 40 MG TABLET PO SCH ×2 (08:43→21:31)
[2017-10-15] MEDS: FLUoxetine 20 MG CAPSULE PO SCH (08:43)
[2017-10-15] MEDS: ASPIRIN EC 81 MG TABLET PO SCH (08:43)
[2017-10-15] MEDS: INSULIN LISPRO 100 UNIT/ML SUBCUT SCH ×4 (08:44→21:33)
[2017-10-15] MEDS: LISINOPRIL 20 MG TABLET PO SCH (11:29)
[2017-10-15] MEDS: levETIRAcetam 500 MG TABLET PO SCH ×2 (11:29→21:31)
[2017-10-15] MEDS: DILTIAZEM CD 180 MG CAPSULE PO SCH ×2 (11:29→21:29)
[2017-10-15] MEDS: CARVEDILOL 25 MG TABLET PO SCH ×2 (11:29→21:31)
[2017-10-15] MEDS ORDERED: LIDOCAINE 1% 20 ML VIAL ONE (12:36)
[2017-10-15] MEDS ORDERED: LIDOCAINE 1% 5 ML VIAL ONE (13:29)
[2017-10-15] MEDS ORDERED: fentaNYL 100 MCG/2 ML VIAL ONE (13:29)
[2017-10-15] MEDS ORDERED: SEVOFLURANE 1 UNIT/15 MINUTE INH ONE (13:29)
[2017-10-15] MEDS ORDERED: ONDANSETRON 4 MG/2 ML VIAL ONE (13:29)
[2017-10-15] MEDS ORDERED: PROPOFOL 200 MG/20 ML VIAL IV ONE (13:29)
[2017-10-15] MEDS ORDERED: MIDAZOLAM 2 MG/2 ML VIAL ONE (13:29)
[2017-10-15] MEDS: ATORVASTATIN 20 MG TABLET PO SCH (21:31)
[2017-10-16] MEDS: SODIUM CHLORIDE 0.45% 1,000 ML IV SCH ×3 (01:40→18:32)
[2017-10-16] MEDS: MORPHINE 4 MG/1 ML VIAL IV PRN ×4 (02:55→21:25)
[2017-10-16] MEDS: VANCOMYCIN INJ 1,000 MG in SODIUM CHLORIDE 0.9% 250 ML IV SCH (02:59)
[2017-10-16] MEDS: METOCLOPRAMIDE 10 MG TABLET PO SCH ×5 (04:53→21:18)
[2017-10-16 05:15] LABS: Basophils # 0.1 10*3/uL (0.0-0.2); Basophils % 0.3 % (0.0-0.8); Eosinophils # 0.1 10*3/uL (0.0-0.87); Eosinophils % 0.5 % (0.00-10.9); Hematocrit 29.2 VOL% (35.7-47.0); Hemoglobin 9.5 GM/DL (12.0-16.0); Immature Granulocytes Absolute 0.19 #; Lymphocytes # 2.1 10*3/uL (1.4-4.0); Lymphocytes % 11.4 % (21.3-54.2); Mean Corpuscular HGB Conc 32.5 GM/DL (32-36); Mean Corpuscular Hemoglobin 29 PG (27-34); Mean Corpuscular Volume 89.6 FL (87-102); Mean Platelet Volume 9.3 FL (9.6-12.0); Monocytes # 1.5 10*3/uL (0.11-0.8); Monocytes % 8.1 % (1.7-12.7); Neutrophils # 14.3 10*3/uL (1.4-7.4); Neutrophils % 78.7 % (38.7-73.9); Platelet Count 399 T/CUMM (130-400); Red Blood Count 3.26 MC/CUMM (3.8-5.5); Red Cell Distribution Width 17.6 % (9.3-17.3); White Blood Count 18.1 T/CUMM (4-12)
[2017-10-16 05:40] LABS: Calcium 7.9 MG/DL (8.5-10.1); Osmolality,Calculated 268.4 MOS/KG (273-304); Potassium 4.5 MMOL/L (3.5-5.1)
[2017-10-16] MEDS: INSULIN LISPRO 100 UNIT/ML SUBCUT SCH ×4 (08:06→21:21)
[2017-10-16] MEDS: glyBURIDE 5 MG TABLET PO SCH ×3 (08:07→18:31)
[2017-10-16] MEDS: metFORMIN 500 MG TABLET PO SCH ×3 (08:08→18:31)
[2017-10-16] MEDS: DILTIAZEM CD 180 MG CAPSULE PO SCH ×2 (09:16→21:21)
[2017-10-16] MEDS: APIXABAN 5 MG TABLET PO SCH ×2 (09:16→21:20)
[2017-10-16] MEDS: levETIRAcetam 500 MG TABLET PO SCH ×2 (09:16→21:20)
[2017-10-16] MEDS: PANTOPRAZOLE 40 MG TABLET PO SCH ×2 (09:17→21:21)
[2017-10-16] MEDS: LISINOPRIL 20 MG TABLET PO SCH (09:17)
[2017-10-16] MEDS: CARVEDILOL 25 MG TABLET PO SCH ×2 (09:17→21:21)
[2017-10-16] MEDS: ASPIRIN EC 81 MG TABLET PO SCH (09:17)
[2017-10-16] MEDS: FLUoxetine 20 MG CAPSULE PO SCH (09:30)
[2017-10-16] MEDS: PIPERACILLIN/TAZOBACTAM 3,375 MG in SODIUM CHLORIDE 0.9% 100 ML IV SCH ×2 (11:38→18:43)
[2017-10-16] MEDS: ATORVASTATIN 20 MG TABLET PO SCH (21:20)
[2017-10-17] MEDS: MORPHINE 4 MG/1 ML VIAL IV PRN (02:05)
[2017-10-17] MEDS: SODIUM CHLORIDE 0.45% 1,000 ML IV SCH ×2 (05:57→13:40)
[2017-10-17] MEDS: VANCOMYCIN INJ 1,000 MG in SODIUM CHLORIDE 0.9% 250 ML IV SCH (07:45)
[2017-10-17] MEDS: PIPERACILLIN/TAZOBACTAM 3,375 MG in SODIUM CHLORIDE 0.9% 100 ML IV SCH ×3 (09:21→17:57)
[2017-10-17] MEDS: PANTOPRAZOLE 40 MG TABLET PO SCH ×2 (10:12→20:20)
[2017-10-17] MEDS: glyBURIDE 5 MG TABLET PO SCH ×3 (10:12→17:56)
[2017-10-17] MEDS: METOCLOPRAMIDE 10 MG TABLET PO SCH ×4 (10:12→20:20)
[2017-10-17] MEDS: APIXABAN 5 MG TABLET PO SCH ×2 (10:13→20:20)
[2017-10-17] MEDS: levETIRAcetam 500 MG TABLET PO SCH ×2 (10:14→20:20)
[2017-10-17] MEDS: ASPIRIN EC 81 MG TABLET PO SCH (10:14)
[2017-10-17] MEDS: metFORMIN 500 MG TABLET PO SCH ×3 (10:14→17:55)
[2017-10-17] MEDS: CARVEDILOL 25 MG TABLET PO SCH ×2 (10:15→20:19)
[2017-10-17] MEDS: DILTIAZEM CD 180 MG CAPSULE PO SCH ×2 (10:15→20:19)
[2017-10-17] MEDS: LISINOPRIL 20 MG TABLET PO SCH (10:15)
[2017-10-17] MEDS: INSULIN LISPRO 100 UNIT/ML SUBCUT SCH ×4 (10:17→22:18)
[2017-10-17] MEDS: FLUoxetine 20 MG CAPSULE PO SCH (10:17)
[2017-10-17] MEDS: SODIUM CHLORIDE 0.9% 1,000 ML IV SCH (14:42)
[2017-10-17] MEDS: ATORVASTATIN 20 MG TABLET PO SCH (20:20)
[2017-10-18] MEDS: SODIUM CHLORIDE 0.9% 1,000 ML IV SCH ×2 (01:15→23:27)
[2017-10-18] MEDS: PIPERACILLIN/TAZOBACTAM 3,375 MG in SODIUM CHLORIDE 0.9% 100 ML IV SCH ×3 (02:30→16:41)
[2017-10-18] MEDS: MORPHINE 4 MG/1 ML VIAL IV PRN (05:44)
[2017-10-18] MEDS: VANCOMYCIN INJ 1,000 MG in SODIUM CHLORIDE 0.9% 250 ML IV SCH (06:25)
[2017-10-18 06:43] LABS: Calcium 8.2 MG/DL (8.5-10.1); Osmolality,Calculated 272.2 MOS/KG (273-304); Potassium 4.1 MMOL/L (3.5-5.1)
[2017-10-18] MEDS: INSULIN LISPRO 100 UNIT/ML SUBCUT SCH ×4 (08:34→21:38)
[2017-10-18] MEDS: glyBURIDE 5 MG TABLET PO SCH ×3 (09:57→16:33)
[2017-10-18] MEDS: LISINOPRIL 20 MG TABLET PO SCH (09:58)
[2017-10-18] MEDS: FLUoxetine 20 MG CAPSULE PO SCH (09:58)
[2017-10-18] MEDS: ASPIRIN EC 81 MG TABLET PO SCH (09:58)
[2017-10-18] MEDS: levETIRAcetam 500 MG TABLET PO SCH ×2 (09:59→20:51)
[2017-10-18] MEDS: CARVEDILOL 25 MG TABLET PO SCH ×2 (09:59→20:51)
[2017-10-18] MEDS: metFORMIN 500 MG TABLET PO SCH ×3 (09:59→16:29)
[2017-10-18] MEDS: APIXABAN 5 MG TABLET PO SCH ×2 (10:00→20:50)
[2017-10-18] MEDS: PANTOPRAZOLE 40 MG TABLET PO SCH ×2 (10:00→20:50)
[2017-10-18] MEDS: METOCLOPRAMIDE 10 MG TABLET PO SCH ×4 (10:00→20:51)
[2017-10-18] MEDS: DILTIAZEM CD 180 MG CAPSULE PO SCH ×2 (10:03→20:51)
[2017-10-18] MEDS: ATORVASTATIN 20 MG TABLET PO SCH (20:51)
[2017-10-19] MEDS: PIPERACILLIN/TAZOBACTAM 3,375 MG in SODIUM CHLORIDE 0.9% 100 ML IV SCH ×3 (01:39→18:22)
[2017-10-19] MEDS: SODIUM CHLORIDE 0.9% 1,000 ML IV SCH ×2 (04:12→18:22)
[2017-10-19 06:27] LABS: Basophils # 0.1 10*3/uL (0.0-0.2); Basophils % 0.4 % (0.0-0.8); Eosinophils # 0.1 10*3/uL (0.0-0.87); Eosinophils % 0.5 % (0.00-10.9); Hematocrit 27.4 VOL% (35.7-47.0); Hemoglobin 9.2 GM/DL (12.0-16.0); Immature Granulocytes % 0.8 %; Immature Granulocytes Absolute 0.14 #; Lymphocytes # 1.9 10*3/uL (1.4-4.0); Lymphocytes % 10.3 % (21.3-54.2); Mean Corpuscular HGB Conc 33.6 GM/DL (32-36); Mean Corpuscular Hemoglobin 29 PG (27-34); Mean Corpuscular Volume 87.3 FL (87-102); Mean Platelet Volume 9.1 FL (9.6-12.0); Monocytes # 1.3 10*3/uL (0.11-0.8); Monocytes % 7.2 % (1.7-12.7); Neutrophils # 14.9 10*3/uL (1.4-7.4); Neutrophils % 80.8 % (38.7-73.9); Platelet Count 500 T/CUMM (130-400); Red Blood Count 3.14 MC/CUMM (3.8-5.5); Red Cell Distribution Width 18.5 % (9.3-17.3); White Blood Count 18.4 T/CUMM (4-12)
[2017-10-19 07:06] LABS: Osmolality,Calculated 276.8 MOS/KG (273-304); Potassium 4.3 MMOL/L (3.5-5.1)
[2017-10-19] MEDS: INSULIN LISPRO 100 UNIT/ML SUBCUT SCH ×4 (10:35→21:38)
[2017-10-19] MEDS: glyBURIDE 5 MG TABLET PO SCH ×3 (10:35→18:12)
[2017-10-19] MEDS: METOCLOPRAMIDE 10 MG TABLET PO SCH ×4 (10:35→21:37)
[2017-10-19] MEDS: metFORMIN 500 MG TABLET PO SCH ×3 (10:36→18:13)
[2017-10-19] MEDS: FLUoxetine 20 MG CAPSULE PO SCH (10:55)
[2017-10-19] MEDS: APIXABAN 5 MG TABLET PO SCH ×2 (10:55→21:37)
[2017-10-19] MEDS: ASPIRIN EC 81 MG TABLET PO SCH (10:55)
[2017-10-19] MEDS: CARVEDILOL 25 MG TABLET PO SCH ×2 (10:56→21:37)
[2017-10-19] MEDS: PANTOPRAZOLE 40 MG TABLET PO SCH ×2 (10:56→21:37)
[2017-10-19] MEDS: levETIRAcetam 500 MG TABLET PO SCH ×2 (10:56→21:37)
[2017-10-19] MEDS: DILTIAZEM CD 180 MG CAPSULE PO SCH ×2 (10:57→21:41)
[2017-10-19] MEDS: hydrALAZINE 25 MG TABLET PO SCH ×2 (18:09→21:37)
[2017-10-19] MEDS: LISINOPRIL 20 MG TABLET PO SCH (18:22)
[2017-10-19] MEDS: ATORVASTATIN 20 MG TABLET PO SCH (21:37)
[2017-10-20] MEDS: PIPERACILLIN/TAZOBACTAM 3,375 MG in SODIUM CHLORIDE 0.9% 100 ML IV SCH ×3 (01:10→18:23)
[2017-10-20] MEDS: SODIUM CHLORIDE 0.9% 1,000 ML IV SCH ×3 (06:55→18:17)
[2017-10-20 07:31] LABS: Calcium 8.3 MG/DL (8.5-10.1); Osmolality,Calculated 272.4 MOS/KG (273-304); Potassium 4.2 MMOL/L (3.5-5.1)
[2017-10-20 09:33] LABS: Basophils # 0.1 10*3/uL (0.0-0.2); Basophils % 0.4 % (0.0-0.8); Eosinophils % 0.1 % (0.00-10.9); Hematocrit 33.1 VOL% (35.7-47.0); Hemoglobin 10.6 GM/DL (12.0-16.0); Immature Granulocytes % 0.6 %; Immature Granulocytes Absolute 0.15 #; Lymphocytes # 1.3 10*3/uL (1.4-4.0); Lymphocytes % 5.5 % (21.3-54.2); Mean Corpuscular Hemoglobin 29 PG (27-34); Mean Corpuscular Volume 90.7 FL (87-102); Mean Platelet Volume 9.1 FL (9.6-12.0); Monocytes # 0.8 10*3/uL (0.11-0.8); Monocytes % 3.2 % (1.7-12.7); Neutrophils # 21.7 10*3/uL (1.4-7.4); Neutrophils % 90.2 % (38.7-73.9); Platelet Count 570 T/CUMM (130-400); Red Blood Count 3.65 MC/CUMM (3.8-5.5); Red Cell Distribution Width 18.5 % (9.3-17.3)
[2017-10-20 09:45] LABS: White Blood Count 24.1 T/CUMM (4-12)
[2017-10-20] MEDS ORDERED: VANCOMYCIN INJ 1,000 MG in SODIUM CHLORIDE 0.9% 250 ML IV PRN (10:00)
[2017-10-20 10:36] LABS: Lymphocytes 8 % (20-55); Segmented Neutrophils 88 % (50-85); Total Cells Counted 100
[2017-10-20] MEDS: PANTOPRAZOLE 40 MG TABLET PO SCH ×2 (11:24→20:15)
[2017-10-20] MEDS: FLUoxetine 20 MG CAPSULE PO SCH (11:24)
[2017-10-20] MEDS: levETIRAcetam 500 MG TABLET PO SCH ×2 (11:24→20:15)
[2017-10-20] MEDS: APIXABAN 5 MG TABLET PO SCH ×2 (11:25→20:15)
[2017-10-20] MEDS: ASPIRIN EC 81 MG TABLET PO SCH (11:26)
[2017-10-20] MEDS: DILTIAZEM CD 180 MG CAPSULE PO SCH ×2 (11:26→20:16)
[2017-10-20] MEDS: hydrALAZINE 25 MG TABLET PO SCH ×3 (11:26→20:28)
[2017-10-20] MEDS: INSULIN LISPRO 100 UNIT/ML SUBCUT SCH ×4 (11:27→20:14)
[2017-10-20] MEDS: glyBURIDE 5 MG TABLET PO SCH ×3 (11:27→16:18)
[2017-10-20] MEDS: METOCLOPRAMIDE 10 MG TABLET PO SCH ×4 (11:27→20:15)
[2017-10-20 11:35] LABS: ABG Base Excess -10.6 MMOL/L (-2.5-2.5); ABG HCO3 16.1 MMOL/L (20-26); ABG Oxygen Saturation 96.5 % (95-100); ABG PCO2 27.8 MM HG (35-48); ABG TCO2 12.9 MMOL/L (23-27)
[2017-10-20] MEDS: metFORMIN 500 MG TABLET PO SCH ×2 (12:13)
[2017-10-20] MEDS: CARVEDILOL 25 MG TABLET PO SCH (12:13)
[2017-10-20] MEDS ORDERED: VANCOMYCIN INJ 1,000 MG in SODIUM CHLORIDE 0.9% 250 ML IV ONE (13:00)
[2017-10-20] MEDS: ATORVASTATIN 20 MG TABLET PO SCH (20:15)
[2017-10-21] MEDS: PIPERACILLIN/TAZOBACTAM 3,375 MG in SODIUM CHLORIDE 0.9% 100 ML IV SCH ×3 (01:20→16:25)
[2017-10-21] MEDS: SODIUM CHLORIDE 0.9% 1,000 ML IV SCH ×3 (01:21→22:00)
[2017-10-21 06:25] LABS: Calcium 7.7 MG/DL (8.5-10.1); Osmolality,Calculated 280.1 MOS/KG (273-304)
[2017-10-21 06:26] LABS: Alanine Aminotransferase < 6 U/L (13-56); Albumin 1.2 G/DL (3.4-5.0); Alkaline Phosphatase 109 U/L (45-117); Aspartate Amino Transferase 7 U/L (0-37); Bilirubin,Indirect 0.2 MG/DL (0.0-1.0); Total Protein 5.4 G/DL (6.4-8.3)
[2017-10-21] MEDS ORDERED: MAGNESIUM SULF RIDER 2 GM in PREMIX 1 EACH IV PRN (06:35)
[2017-10-21] MEDS ORDERED: MAGNESIUM SULF RIDER 4 GM in PREMIX 1 EACH IV PRN (06:35)
[2017-10-21] MEDS: FLUoxetine 20 MG CAPSULE PO SCH (08:07)
[2017-10-21] MEDS: glyBURIDE 5 MG TABLET PO SCH ×2 (08:08→16:25)
[2017-10-21] MEDS: DILTIAZEM CD 180 MG CAPSULE PO SCH ×2 (08:08→21:59)
[2017-10-21] MEDS: APIXABAN 5 MG TABLET PO SCH ×2 (08:09→21:59)
[2017-10-21] MEDS: PANTOPRAZOLE 40 MG TABLET PO SCH ×2 (08:09→21:59)
[2017-10-21] MEDS: ASPIRIN EC 81 MG TABLET PO SCH (08:09)
[2017-10-21] MEDS: METOCLOPRAMIDE 10 MG TABLET PO SCH ×4 (08:09→21:59)
[2017-10-21] MEDS: hydrALAZINE 25 MG TABLET PO SCH ×3 (08:09→21:59)
[2017-10-21] MEDS: levETIRAcetam 500 MG TABLET PO SCH ×2 (08:09→21:59)
[2017-10-21] MEDS: INSULIN LISPRO 100 UNIT/ML SUBCUT SCH ×4 (08:10→22:00)
[2017-10-21] MEDS: ATORVASTATIN 20 MG TABLET PO SCH (21:59)
[2017-10-22] MEDS: PIPERACILLIN/TAZOBACTAM 3,375 MG in SODIUM CHLORIDE 0.9% 100 ML IV SCH ×3 (01:50→20:43)
[2017-10-22 04:02] LABS: Basophils # 0.1 10*3/uL (0.0-0.2); Basophils % 0.6 % (0.0-0.8); Eosinophils # 0.1 10*3/uL (0.0-0.87); Eosinophils % 0.4 % (0.00-10.9); Hemoglobin 9.3 GM/DL (12.0-16.0); Immature Granulocytes % 0.4 %; Immature Granulocytes Absolute 0.07 #; Lymphocytes # 2.1 10*3/uL (1.4-4.0); Lymphocytes % 10.9 % (21.3-54.2); Mean Corpuscular HGB Conc 32.1 GM/DL (32-36); Mean Corpuscular Hemoglobin 29 PG (27-34); Mean Corpuscular Volume 90.9 FL (87-102); Mean Platelet Volume 8.9 FL (9.6-12.0); Monocytes # 1.3 10*3/uL (0.11-0.8); Monocytes % 6.6 % (1.7-12.7); Neutrophils # 15.4 10*3/uL (1.4-7.4); Neutrophils % 81.1 % (38.7-73.9); Platelet Count 486 T/CUMM (130-400); Red Blood Count 3.19 MC/CUMM (3.8-5.5)
[2017-10-22 04:32] LABS: Calcium 7.7 MG/DL (8.5-10.1)
[2017-10-22 04:33] LABS: Osmolality,Calculated 279.7 MOS/KG (273-304); Potassium 4.1 MMOL/L (3.5-5.1)
[2017-10-22] MEDS: SODIUM CHLORIDE 0.9% 1,000 ML IV SCH ×2 (06:00→22:21)
[2017-10-22] MEDS: FLUoxetine 20 MG CAPSULE PO SCH (09:14)
[2017-10-22] MEDS: levETIRAcetam 500 MG TABLET PO SCH ×2 (09:14→22:12)
[2017-10-22] MEDS: APIXABAN 5 MG TABLET PO SCH ×2 (09:16→22:12)
[2017-10-22] MEDS: METOCLOPRAMIDE 10 MG TABLET PO SCH ×4 (09:16→22:12)
[2017-10-22] MEDS: PANTOPRAZOLE 40 MG TABLET PO SCH ×2 (09:16→22:11)
[2017-10-22] MEDS: DILTIAZEM CD 180 MG CAPSULE PO SCH ×2 (09:16→22:12)
[2017-10-22] MEDS: glyBURIDE 5 MG TABLET PO SCH ×2 (09:16→18:35)
[2017-10-22] MEDS: hydrALAZINE 25 MG TABLET PO SCH ×3 (09:16→22:11)
[2017-10-22] MEDS: INSULIN LISPRO 100 UNIT/ML SUBCUT SCH ×5 (09:16→22:13)
[2017-10-22] MEDS: ASPIRIN EC 81 MG TABLET PO SCH (09:16)
[2017-10-22] MEDS ORDERED: VANCOMYCIN INJ 1,250 MG in SODIUM CHLORIDE 0.9% 250 ML IV ONE (10:30)
[2017-10-22] MEDS: SODIUM BICARB INJ 150 MEQ in DEXTROSE 5% 850 ML IV SCH ×2 (13:39→22:18)
[2017-10-22] MEDS: ALBUMIN 25% 25 GM in PREMIX 1 EACH IV SCH ×2 (18:35→23:55)
[2017-10-22 19:21] LABS: Apearance,Urine CLOUDY (Clear); Bacteria,Urine Occasional /HPF (Few); Bilirubin,Urine Negative (Negative); Blood, Urine Small mg/dL (Negative); Glucose,Urine (UA) Negative (Negative); Ketones,Urine Negative (Negative); Nitrite,Urine Negative (Negative); Protein,Urine Negative; RBC,Urine 10 /HPF (0-4); Squamous Epithelial Cell,Urine Occasional /HPF (0-10); Urine Color Yellow (Yellow); Urine Specific Gravity 1.016 (1.001-1.035); Urine Urobilinogen < 2.0 EU/DL (0.2-1.0); WBC,Urine 10 /HPF (0-6)
[2017-10-22] MEDS: ATORVASTATIN 20 MG TABLET PO SCH (22:11)
[2017-10-23 05:26] LABS: Basophils # 0.1 10*3/uL (0.0-0.2); Basophils % 0.5 % (0.0-0.8); Eosinophils # 0.1 10*3/uL (0.0-0.87); Eosinophils % 0.4 % (0.00-10.9); Hematocrit 26.8 VOL% (35.7-47.0); Hemoglobin 8.9 GM/DL (12.0-16.0); Immature Granulocytes % 0.5 %; Immature Granulocytes Absolute 0.08 #; Lymphocytes # 1.6 10*3/uL (1.4-4.0); Lymphocytes % 10.7 % (21.3-54.2); Mean Corpuscular HGB Conc 33.2 GM/DL (32-36); Mean Corpuscular Hemoglobin 29 PG (27-34); Mean Corpuscular Volume 87.3 FL (87-102); Mean Platelet Volume 8.9 FL (9.6-12.0); Monocytes % 6.7 % (1.7-12.7); Neutrophils # 12.3 10*3/uL (1.4-7.4); Neutrophils % 81.2 % (38.7-73.9); Platelet Count 458 T/CUMM (130-400); Red Blood Count 3.07 MC/CUMM (3.8-5.5); Red Cell Distribution Width 19.1 % (9.3-17.3); White Blood Count 15.2 T/CUMM (4-12)
[2017-10-23 05:46] LABS: Alanine Aminotransferase < 9 U/L (13-56); Albumin 1.9 G/DL (3.4-5.0); Alkaline Phosphatase 70 U/L (45-117); Aspartate Amino Transferase 8 U/L (0-37); Blood Urea Nitrogen 19 MG/DL (7-18); Calcium 7.9 MG/DL (8.5-10.1); Glucose 165 MG/DL (74-106); Osmolality,Calculated 284.4 MOS/KG (273-304); Potassium 3.9 MMOL/L (3.5-5.1); Sodium 140 MMOL/L (136-145)
[2017-10-23] MEDS: PANTOPRAZOLE 40 MG TABLET PO SCH ×2 (09:00→20:50)
[2017-10-23] MEDS: DILTIAZEM CD 180 MG CAPSULE PO SCH ×2 (09:00→20:50)
[2017-10-23] MEDS: ASPIRIN EC 81 MG TABLET PO SCH (09:01)
[2017-10-23] MEDS: glyBURIDE 5 MG TABLET PO SCH ×2 (09:01→17:19)
[2017-10-23] MEDS: levETIRAcetam 500 MG TABLET PO SCH ×2 (09:01→20:50)
[2017-10-23] MEDS: FLUoxetine 20 MG CAPSULE PO SCH (09:01)
[2017-10-23] MEDS: APIXABAN 5 MG TABLET PO SCH ×2 (09:01→20:49)
[2017-10-23] MEDS: METOCLOPRAMIDE 10 MG TABLET PO SCH ×4 (09:01→20:50)
[2017-10-23] MEDS: hydrALAZINE 25 MG TABLET PO SCH ×3 (09:01→20:50)
[2017-10-23] MEDS: INSULIN LISPRO 100 UNIT/ML SUBCUT SCH ×4 (09:02→20:55)
[2017-10-23] MEDS: ALBUMIN 25% 25 GM in PREMIX 1 EACH IV SCH ×2 (09:02→17:20)
[2017-10-23] MEDS: PIPERACILLIN/TAZOBACTAM 3,375 MG in SODIUM CHLORIDE 0.9% 100 ML IV SCH ×2 (10:52)
[2017-10-23] MEDS ORDERED: FLUCONAZOLE 100 MG TABLET PO ONE (16:51)
[2017-10-23] MEDS: NYSTATIN 500,000 UNIT/5 ML UDCUP SWISH/SWAL SCH ×2 (19:16→20:49)
[2017-10-23] MEDS: SODIUM BICARB INJ 150 MEQ in DEXTROSE 5% 850 ML IV SCH ×2 (19:55→20:51)
[2017-10-24] MEDS: ALBUMIN 25% 25 GM in PREMIX 1 EACH IV SCH ×4 (01:45→23:18)
[2017-10-24 06:02] LABS: Basophils # 0.1 10*3/uL (0.0-0.2); Basophils % 0.4 % (0.0-0.8); Eosinophils # 0.1 10*3/uL (0.0-0.87); Eosinophils % 0.5 % (0.00-10.9); Hematocrit 21.9 VOL% (35.7-47.0); Hemoglobin 7.2 GM/DL (12.0-16.0); Immature Granulocytes % 0.6 %; Immature Granulocytes Absolute 0.11 #; Mean Corpuscular HGB Conc 32.9 GM/DL (32-36); Mean Corpuscular Hemoglobin 29 PG (27-34); Mean Corpuscular Volume 88.7 FL (87-102); Mean Platelet Volume 9.2 FL (9.6-12.0); Monocytes # 1.4 10*3/uL (0.11-0.8); Monocytes % 7.8 % (1.7-12.7); Neutrophils # 14.5 10*3/uL (1.4-7.4); Neutrophils % 79.7 % (38.7-73.9); Platelet Count 371 T/CUMM (130-400); Red Blood Count 2.47 MC/CUMM (3.8-5.5); Red Cell Distribution Width 18.8 % (9.3-17.3); White Blood Count 18.2 T/CUMM (4-12)
[2017-10-24 06:18] LABS: Albumin 2.6 G/DL (3.4-5.0); Calcium 7.7 MG/DL (8.5-10.1); Osmolality,Calculated 281.7 MOS/KG (273-304); Potassium 3.6 MMOL/L (3.5-5.1)
[2017-10-24 06:27] LABS: Calcium 7.8 MG/DL (8.5-10.1); Osmolality,Calculated 278.8 MOS/KG (273-304); Potassium 3.7 MMOL/L (3.5-5.1)
[2017-10-24] MEDS: SODIUM BICARB INJ 150 MEQ in DEXTROSE 5% 850 ML IV SCH ×3 (06:45→23:18)
[2017-10-24] MEDS: glyBURIDE 5 MG TABLET PO SCH ×2 (09:03→17:10)
[2017-10-24] MEDS: ASPIRIN EC 81 MG TABLET PO SCH (09:03)
[2017-10-24] MEDS: hydrALAZINE 25 MG TABLET PO SCH ×3 (09:03→21:36)
[2017-10-24] MEDS: METOCLOPRAMIDE 10 MG TABLET PO SCH ×4 (09:03→21:36)
[2017-10-24] MEDS: DILTIAZEM CD 180 MG CAPSULE PO SCH ×2 (09:03→21:35)
[2017-10-24] MEDS: levETIRAcetam 500 MG TABLET PO SCH ×2 (09:04→21:36)
[2017-10-24] MEDS: PANTOPRAZOLE 40 MG TABLET PO SCH ×2 (09:04→21:35)
[2017-10-24] MEDS: APIXABAN 5 MG TABLET PO SCH ×2 (09:04→21:35)
[2017-10-24] MEDS: NYSTATIN 500,000 UNIT/5 ML UDCUP SWISH/SWAL SCH ×4 (09:04→21:35)
[2017-10-24] MEDS: FLUoxetine 20 MG CAPSULE PO SCH (09:04)
[2017-10-24] MEDS: INSULIN LISPRO 100 UNIT/ML SUBCUT SCH ×4 (09:06→21:37)
[2017-10-24] MEDS: INSULIN GLARGINE 100 UNIT/ML SUBCUT SCH (21:36)
[2017-10-25] MEDS ORDERED: NITROGLYCERIN SL 0.4 MG TABLET SL ONE ×2 (00:03→00:16)
[2017-10-25] MEDS ORDERED: FUROSEMIDE 40 MG/4 ML VIAL ONE (00:10)
[2017-10-25 00:22] LABS: ABG Base Excess -2.1 MMOL/L (-2.5-2.5); ABG HCO3 22.2 MMOL/L (20-26); ABG Oxygen Saturation 84.3 % (95-100); ABG PCO2 35.8 MM HG (35-48); ABG PO2 57.3 MM HG (80-95); ABG TCO2 23.3 MMOL/L (23-27); Allen Test Positive
[2017-10-25] MEDS ORDERED: MORPHINE 4 MG/1 ML VIAL IV ONE (00:30)
[2017-10-25 00:38] LABS: Basophils # 0.1 10*3/uL (0.0-0.2); Basophils % 0.6 % (0.0-0.8); Eosinophils # 0.2 10*3/uL (0.0-0.87); Hematocrit 25.6 VOL% (35.7-47.0); Hemoglobin 8.4 GM/DL (12.0-16.0); Immature Granulocytes Absolute 0.15 #; Lymphocytes # 2.8 10*3/uL (1.4-4.0); Lymphocytes % 17.8 % (21.3-54.2); Mean Corpuscular HGB Conc 32.8 GM/DL (32-36); Mean Corpuscular Hemoglobin 29 PG (27-34); Mean Corpuscular Volume 88.9 FL (87-102); Mean Platelet Volume 9.4 FL (9.6-12.0); Monocytes # 1.1 10*3/uL (0.11-0.8); Monocytes % 7.3 % (1.7-12.7); Neutrophils # 11.3 10*3/uL (1.4-7.4); Neutrophils % 72.3 % (38.7-73.9); Platelet Count 408 T/CUMM (130-400); Red Blood Count 2.88 MC/CUMM (3.8-5.5); Red Cell Distribution Width 18.8 % (9.3-17.3); White Blood Count 15.6 T/CUMM (4-12)
[2017-10-25 00:39] LABS: Blood Urea Nitrogen 17 MG/DL (7-18); Calcium 8.5 MG/DL (8.5-10.1); Glucose 152 MG/DL (74-106); Osmolality,Calculated 277.8 MOS/KG (273-304); Sodium 137 MMOL/L (136-145); Troponin I Only < 0.015 NG/ML (0.00-0.045)
[2017-10-25 01:05] LABS: Amorphous Crystals,Urine Few /HPF (Few); Apearance,Urine CLOUDY (Clear); Bacteria,Urine Few /HPF (Few); Bilirubin,Urine Negative (Negative); Blood, Urine Small mg/dL (Negative); Glucose,Urine (UA) Negative (Negative); Ketones,Urine Negative (Negative); Nitrite,Urine Negative (Negative); Protein,Urine 100 MG/DL; RBC,Urine 15 /HPF (0-4); Squamous Epithelial Cell,Urine Many /HPF (0-10); Urine Color Yellow (Yellow); Urine Specific Gravity 1.011 (1.001-1.035); Urine Urobilinogen < 2.0 EU/DL (0.2-1.0)
[2017-10-25 06:12] LABS: Basophils # 0.1 10*3/uL (0.0-0.2); Basophils % 0.5 % (0.0-0.8); Eosinophils # 0.1 10*3/uL (0.0-0.87); Eosinophils % 0.4 % (0.00-10.9); Hematocrit 22.6 VOL% (35.7-47.0); Hemoglobin 7.5 GM/DL (12.0-16.0); Immature Granulocytes % 0.6 %; Immature Granulocytes Absolute 0.13 #; Lymphocytes # 1.9 10*3/uL (1.4-4.0); Lymphocytes % 9.6 % (21.3-54.2); Mean Corpuscular HGB Conc 33.2 GM/DL (32-36); Mean Corpuscular Hemoglobin 29 PG (27-34); Mean Corpuscular Volume 87.6 FL (87-102); Mean Platelet Volume 9.1 FL (9.6-12.0); Monocytes # 1.3 10*3/uL (0.11-0.8); Monocytes % 6.3 % (1.7-12.7); Neutrophils # 16.7 10*3/uL (1.4-7.4); Neutrophils % 82.6 % (38.7-73.9); Platelet Count 373 T/CUMM (130-400); Red Blood Count 2.58 MC/CUMM (3.8-5.5); Red Cell Distribution Width 18.7 % (9.3-17.3); White Blood Count 20.2 T/CUMM (4-12)
[2017-10-25 06:30] LABS: Anisocytosis 1+; Hypochromasia 1+; Microcytosis 1+; Platelet Estimate Normal
[2017-10-25 06:39] LABS: Calcium 8.3 MG/DL (8.5-10.1); Osmolality,Calculated 276.7 MOS/KG (273-304); Potassium 3.7 MMOL/L (3.5-5.1)
[2017-10-25 08:20] LABS: Troponin I Only 0.037 NG/ML (0.00-0.045)
[2017-10-25] MEDS: ALBUMIN 25% 25 GM in PREMIX 1 EACH IV SCH (08:46)
[2017-10-25] MEDS: levETIRAcetam 500 MG TABLET PO SCH ×2 (08:47→21:12)
[2017-10-25] MEDS: APIXABAN 5 MG TABLET PO SCH ×2 (08:47→21:13)
[2017-10-25] MEDS: PANTOPRAZOLE 40 MG TABLET PO SCH ×2 (08:47→21:12)
[2017-10-25] MEDS: DILTIAZEM CD 180 MG CAPSULE PO SCH ×2 (08:47→21:10)
[2017-10-25] MEDS: ASPIRIN EC 81 MG TABLET PO SCH (08:47)
[2017-10-25] MEDS: NYSTATIN 500,000 UNIT/5 ML UDCUP SWISH/SWAL SCH ×4 (08:47→21:13)
[2017-10-25] MEDS: glyBURIDE 5 MG TABLET PO SCH ×2 (08:48→16:29)
[2017-10-25] MEDS: hydrALAZINE 25 MG TABLET PO SCH ×3 (08:48→21:10)
[2017-10-25] MEDS: FLUoxetine 20 MG CAPSULE PO SCH (08:48)
[2017-10-25] MEDS: METOCLOPRAMIDE 10 MG TABLET PO SCH ×4 (08:48→21:12)
[2017-10-25] MEDS: INSULIN LISPRO 100 UNIT/ML SUBCUT SCH ×4 (08:48→20:56)
[2017-10-25] MEDS ORDERED: FUROSEMIDE 40 MG/4 ML VIAL IV ONE (09:55)
[2017-10-25 13:24] LABS: Apearance,Urine Slightly Hazy (Clear); Bacteria,Urine Few /HPF (Few); Bilirubin,Urine Negative (Negative); Blood, Urine Small mg/dL (Negative); Glucose,Urine (UA) Negative (Negative); Ketones,Urine Negative (Negative); Mucus,Urine Occasional /LPF (Occasional); Nitrite,Urine Negative (Negative); Protein,Urine Negative; RBC,Urine 6 /HPF (0-4); Squamous Epithelial Cell,Urine Occasional /HPF (0-10); Urine Specific Gravity 1.004 (1.001-1.035); Urine Urobilinogen < 2.0 EU/DL (0.2-1.0); WBC,Urine 59 /HPF (0-6)
[2017-10-25 13:28] LABS: Urine Color Yellow (Yellow)
[2017-10-25] MEDS: FUROSEMIDE 40 MG TABLET PO SCH (15:49)
[2017-10-25 17:05] LABS: Troponin I Only 0.057 NG/ML (0.00-0.045)
[2017-10-25] MEDS: INSULIN GLARGINE 100 UNIT/ML SUBCUT SCH (21:09)
[2017-10-26 02:56] LABS: ABG Base Excess -0.1 MMOL/L (-2.5-2.5); ABG HCO3 24.4 MMOL/L (20-26); ABG Oxygen Saturation 98.3 % (95-100); ABG PCO2 34.4 MM HG (35-48); ABG PH 7.445 (7.35-7.45); ABG TCO2 22.2 MMOL/L (23-27)
[2017-10-26 05:43] LABS: Basophils # 0.1 10*3/uL (0.0-0.2); Basophils % 0.4 % (0.0-0.8); Eosinophils # 0.1 10*3/uL (0.0-0.87); Eosinophils % 0.8 % (0.00-10.9); Hematocrit 21.2 VOL% (35.7-47.0); Hemoglobin 7.1 GM/DL (12.0-16.0); Immature Granulocytes % 0.8 %; Immature Granulocytes Absolute 0.12 #; Lymphocytes # 1.4 10*3/uL (1.4-4.0); Lymphocytes % 8.9 % (21.3-54.2); Mean Corpuscular HGB Conc 33.5 GM/DL (32-36); Mean Corpuscular Hemoglobin 29 PG (27-34); Mean Corpuscular Volume 86.2 FL (87-102); Mean Platelet Volume 9.5 FL (9.6-12.0); Monocytes # 0.8 10*3/uL (0.11-0.8); Monocytes % 5.2 % (1.7-12.7); Neutrophils # 13.3 10*3/uL (1.4-7.4); Neutrophils % 83.9 % (38.7-73.9); Platelet Count 371 T/CUMM (130-400); Red Blood Count 2.46 MC/CUMM (3.8-5.5); Red Cell Distribution Width 18.8 % (9.3-17.3); White Blood Count 15.8 T/CUMM (4-12)
[2017-10-26 06:17] LABS: Calcium 8.4 MG/DL (8.5-10.1); Potassium 4.2 MMOL/L (3.5-5.1)
[2017-10-26] MEDS: METOCLOPRAMIDE 10 MG TABLET PO SCH ×4 (08:17→20:56)
[2017-10-26] MEDS: glyBURIDE 5 MG TABLET PO SCH ×2 (08:17→16:32)
[2017-10-26] MEDS: INSULIN LISPRO 100 UNIT/ML SUBCUT SCH ×4 (08:18→20:58)
[2017-10-26] MEDS: levETIRAcetam 500 MG TABLET PO SCH ×2 (08:18→20:56)
[2017-10-26] MEDS: hydrALAZINE 25 MG TABLET PO SCH ×3 (08:18→20:56)
[2017-10-26] MEDS: FUROSEMIDE 40 MG TABLET PO SCH ×2 (08:18→16:31)
[2017-10-26] MEDS: DILTIAZEM CD 180 MG CAPSULE PO SCH ×2 (08:18→20:57)
[2017-10-26] MEDS: APIXABAN 5 MG TABLET PO SCH ×2 (08:18→20:56)
[2017-10-26] MEDS: PANTOPRAZOLE 40 MG TABLET PO SCH ×2 (08:18→20:57)
[2017-10-26] MEDS: FLUoxetine 20 MG CAPSULE PO SCH (08:18)
[2017-10-26] MEDS: NYSTATIN 500,000 UNIT/5 ML UDCUP SWISH/SWAL SCH ×4 (08:19→20:58)
[2017-10-26] MEDS: ASPIRIN EC 81 MG TABLET PO SCH (08:20)
[2017-10-26] MEDS: INSULIN GLARGINE 100 UNIT/ML SUBCUT SCH (20:58)
[2017-10-27 05:56] LABS: Basophils # 0.1 10*3/uL (0.0-0.2); Basophils % 0.5 % (0.0-0.8); Eosinophils # 0.2 10*3/uL (0.0-0.87); Eosinophils % 1.9 % (0.00-10.9); Hematocrit 21.4 VOL% (35.7-47.0); Hemoglobin 7.3 GM/DL (12.0-16.0); Immature Granulocytes % 0.6 %; Immature Granulocytes Absolute 0.07 #; Lymphocytes # 1.5 10*3/uL (1.4-4.0); Lymphocytes % 12.2 % (21.3-54.2); Mean Corpuscular HGB Conc 34.1 GM/DL (32-36); Mean Corpuscular Hemoglobin 29 PG (27-34); Mean Corpuscular Volume 85.6 FL (87-102); Mean Platelet Volume 9.8 FL (9.6-12.0); Monocytes # 0.6 10*3/uL (0.11-0.8); Neutrophils % 79.8 % (38.7-73.9); Platelet Count 374 T/CUMM (130-400); Red Cell Distribution Width 18.6 % (9.3-17.3); White Blood Count 12.5 T/CUMM (4-12)
[2017-10-27 06:03] LABS: Calcium 8.2 MG/DL (8.5-10.1); Osmolality,Calculated 274.8 MOS/KG (273-304); Potassium 3.4 MMOL/L (3.5-5.1)
[2017-10-27] MEDS: ASPIRIN EC 81 MG TABLET PO SCH (08:25)
[2017-10-27] MEDS: FLUoxetine 20 MG CAPSULE PO SCH (08:25)
[2017-10-27] MEDS: hydrALAZINE 25 MG TABLET PO SCH ×4 (08:25→22:16)
[2017-10-27] MEDS: NYSTATIN 500,000 UNIT/5 ML UDCUP SWISH/SWAL SCH ×4 (08:25→20:18)
[2017-10-27] MEDS: DILTIAZEM CD 180 MG CAPSULE PO SCH ×2 (08:25→20:17)
[2017-10-27] MEDS: glyBURIDE 5 MG TABLET PO SCH ×2 (08:25→16:19)
[2017-10-27] MEDS: FUROSEMIDE 40 MG TABLET PO SCH ×2 (08:25→15:57)
[2017-10-27] MEDS: METOCLOPRAMIDE 10 MG TABLET PO SCH ×4 (08:25→20:17)
[2017-10-27] MEDS: INSULIN LISPRO 100 UNIT/ML SUBCUT SCH ×4 (08:26→20:19)
[2017-10-27] MEDS: APIXABAN 5 MG TABLET PO SCH ×2 (08:26→20:18)
[2017-10-27] MEDS: PANTOPRAZOLE 40 MG TABLET PO SCH ×2 (08:26→20:18)
[2017-10-27] MEDS: levETIRAcetam 500 MG TABLET PO SCH ×2 (08:26→20:17)
[2017-10-27] MEDS: INSULIN GLARGINE 100 UNIT/ML SUBCUT SCH (20:18)
[2017-10-28 05:24] LABS: Basophils # 0.1 10*3/uL (0.0-0.2); Basophils % 0.7 % (0.0-0.8); Eosinophils # 0.3 10*3/uL (0.0-0.87); Eosinophils % 2.3 % (0.00-10.9); Hematocrit 27.6 VOL% (35.7-47.0); Hemoglobin 9.2 GM/DL (12.0-16.0); Immature Granulocytes % 0.3 %; Immature Granulocytes Absolute 0.03 #; Lymphocytes # 1.6 10*3/uL (1.4-4.0); Lymphocytes % 14.3 % (21.3-54.2); Mean Corpuscular HGB Conc 33.3 GM/DL (32-36); Mean Corpuscular Hemoglobin 29 PG (27-34); Mean Corpuscular Volume 87.6 FL (87-102); Mean Platelet Volume 9.9 FL (9.6-12.0); Monocytes # 0.6 10*3/uL (0.11-0.8); Monocytes % 5.4 % (1.7-12.7); Neutrophils # 8.4 10*3/uL (1.4-7.4); Platelet Count 463 T/CUMM (130-400); Red Blood Count 3.15 MC/CUMM (3.8-5.5); Red Cell Distribution Width 18.6 % (9.3-17.3); White Blood Count 10.9 T/CUMM (4-12)
[2017-10-28 05:31] LABS: Calcium 8.9 MG/DL (8.5-10.1); Osmolality,Calculated 271.1 MOS/KG (273-304); Potassium 3.4 MMOL/L (3.5-5.1)
[2017-10-28] MEDS ORDERED: MORPHINE 4 MG/1 ML VIAL IV ONE (06:00)
[2017-10-28] MEDS: FLUoxetine 20 MG CAPSULE PO SCH (08:22)
[2017-10-28] MEDS: NYSTATIN 500,000 UNIT/5 ML UDCUP SWISH/SWAL SCH ×4 (08:22→21:10)
[2017-10-28] MEDS: levETIRAcetam 500 MG TABLET PO SCH ×2 (08:22→21:10)
[2017-10-28] MEDS: METOCLOPRAMIDE 10 MG TABLET PO SCH ×4 (08:22→21:10)
[2017-10-28] MEDS: DILTIAZEM CD 180 MG CAPSULE PO SCH ×2 (08:22→21:10)
[2017-10-28] MEDS: ASPIRIN EC 81 MG TABLET PO SCH (08:22)
[2017-10-28] MEDS: FUROSEMIDE 40 MG TABLET PO SCH ×2 (08:22→15:41)
[2017-10-28] MEDS: APIXABAN 5 MG TABLET PO SCH ×2 (08:22→21:10)
[2017-10-28] MEDS: glyBURIDE 5 MG TABLET PO SCH ×2 (08:23→16:46)
[2017-10-28] MEDS: hydrALAZINE 25 MG TABLET PO SCH ×3 (08:23→22:14)
[2017-10-28] MEDS: PANTOPRAZOLE 40 MG TABLET PO SCH ×2 (08:23→21:10)
[2017-10-28] MEDS: POTASSIUM CHLORIDE RIDER 10 MEQ in PREMIX 1 EACH IV PRN (08:23)
[2017-10-28] MEDS: INSULIN LISPRO 100 UNIT/ML SUBCUT SCH ×4 (08:36→22:15)
[2017-10-28] MEDS: POTASSIUM CHLORIDE 20 MEQ TABLET PO SCH (09:31)
[2017-10-28] MEDS: INSULIN GLARGINE 100 UNIT/ML SUBCUT SCH (22:15)
[2017-10-29] MEDS: APIXABAN 5 MG TABLET PO SCH (10:36)
[2017-10-29] MEDS: ASPIRIN EC 81 MG TABLET PO SCH (10:36)
[2017-10-29] MEDS: INSULIN LISPRO 100 UNIT/ML SUBCUT SCH ×4 (10:36→21:10)
[2017-10-29] MEDS: NYSTATIN 500,000 UNIT/5 ML UDCUP SWISH/SWAL SCH ×4 (10:37→21:05)
[2017-10-29] MEDS: levETIRAcetam 500 MG TABLET PO SCH ×2 (10:37→21:06)
[2017-10-29] MEDS: POTASSIUM CHLORIDE 20 MEQ TABLET PO SCH (10:37)
[2017-10-29] MEDS: METOCLOPRAMIDE 10 MG TABLET PO SCH ×4 (10:37→21:06)
[2017-10-29] MEDS: PANTOPRAZOLE 40 MG TABLET PO SCH ×2 (10:37→21:06)
[2017-10-29] MEDS: hydrALAZINE 25 MG TABLET PO SCH (10:38)
[2017-10-29] MEDS: FLUoxetine 20 MG CAPSULE PO SCH (10:38)
[2017-10-29] MEDS: DILTIAZEM CD 180 MG CAPSULE PO SCH ×2 (10:38→21:06)
[2017-10-29] MEDS: glyBURIDE 5 MG TABLET PO SCH ×2 (10:38→16:00)
[2017-10-29] MEDS: FUROSEMIDE 40 MG TABLET PO SCH ×2 (10:38→15:55)
[2017-10-29] MEDS: cloNIDine 0.1 MG TABLET PO SCH (21:06)
[2017-10-29] MEDS: INSULIN GLARGINE 100 UNIT/ML SUBCUT SCH (21:10)
[2017-10-30 05:50] LABS: Basophils # 0.1 10*3/uL (0.0-0.2); Basophils % 0.6 % (0.0-0.8); Eosinophils # 0.2 10*3/uL (0.0-0.87); Eosinophils % 1.2 % (0.00-10.9); Hematocrit 26.1 VOL% (35.7-47.0); Hemoglobin 8.6 GM/DL (12.0-16.0); Immature Granulocytes % 0.4 %; Immature Granulocytes Absolute 0.05 #; Lymphocytes # 1.7 10*3/uL (1.4-4.0); Mean Corpuscular Hemoglobin 29 PG (27-34); Mean Corpuscular Volume 87.6 FL (87-102); Mean Platelet Volume 9.4 FL (9.6-12.0); Monocytes # 1.2 10*3/uL (0.11-0.8); Monocytes % 8.9 % (1.7-12.7); Neutrophils # 10.1 10*3/uL (1.4-7.4); Neutrophils % 75.9 % (38.7-73.9); Platelet Count 474 T/CUMM (130-400); Red Blood Count 2.98 MC/CUMM (3.8-5.5); Red Cell Distribution Width 18.3 % (9.3-17.3); White Blood Count 13.3 T/CUMM (4-12)
[2017-10-30 06:27] LABS: Albumin 2.2 G/DL (3.4-5.0); Calcium 8.8 MG/DL (8.5-10.1); Osmolality,Calculated 274.8 MOS/KG (273-304); Potassium 3.7 MMOL/L (3.5-5.1)
[2017-10-30] MEDS: FUROSEMIDE 40 MG TABLET PO SCH ×2 (08:32→16:40)
[2017-10-30] MEDS: NYSTATIN 500,000 UNIT/5 ML UDCUP SWISH/SWAL SCH ×2 (08:33→13:20)
[2017-10-30] MEDS: POTASSIUM CHLORIDE 20 MEQ TABLET PO SCH (08:33)
[2017-10-30] MEDS: cloNIDine 0.1 MG TABLET PO SCH (08:33)
[2017-10-30] MEDS: levETIRAcetam 500 MG TABLET PO SCH (08:33)
[2017-10-30] MEDS: FLUoxetine 20 MG CAPSULE PO SCH (08:33)
[2017-10-30] MEDS: DILTIAZEM CD 180 MG CAPSULE PO SCH (08:33)
[2017-10-30] MEDS: PANTOPRAZOLE 40 MG TABLET PO SCH (08:33)
[2017-10-30] MEDS: METOCLOPRAMIDE 10 MG TABLET PO SCH ×3 (08:33→16:40)
[2017-10-30] MEDS: INSULIN LISPRO 100 UNIT/ML SUBCUT SCH ×3 (08:34→16:46)
[2017-10-30] MEDS: glyBURIDE 5 MG TABLET PO SCH ×2 (08:34→16:40)
[2017-10-30] MEDS: ASPIRIN EC 81 MG TABLET PO SCH (08:34)
[2017-10-30 12:55] VITALS: BP 178/88
== END 2017-10-30 17:45 | disposition home or self-care (01) | DRG 710 ==
LOC: EDBD → EDUNIT# → N.ED 19:39 → SUATTDRO 10-11 01:00 → N.EDINP 10-11 01:00 → N.3E 10-11 16:42 → N.ICU 10-20 09:38 → N.3E 10-22 14:39 → N.ICU 10-25 00:03 → N.TELEN 10-28 10:20
PROVIDERS: ADMIT Internal Medicine; ATTEND Internal Medicine Geriatric Medicine

== ENCOUNTER 2017-11-02 20:56 | Inpatient (IN) ==
[2017-11-02 22:24] LABS: Basophils # 0.1 10*3/uL (0.0-0.2); Basophils % 0.5 % (0.0-0.8); Eosinophils # 0.3 10*3/uL (0.0-0.87); Eosinophils % 1.9 % (0.00-10.9); Hematocrit 20.1 VOL% (35.7-47.0); Immature Granulocytes % 0.6 %; Immature Granulocytes Absolute 0.09 #; Lymphocytes # 1.7 10*3/uL (1.4-4.0); Lymphocytes % 11.5 % (21.3-54.2); Mean Corpuscular HGB Conc 31.8 GM/DL (32-36); Mean Corpuscular Hemoglobin 29 PG (27-34); Mean Platelet Volume 9.5 FL (9.6-12.0); Monocytes # 1.1 10*3/uL (0.11-0.8); Monocytes % 7.4 % (1.7-12.7); Neutrophils # 11.4 10*3/uL (1.4-7.4); Neutrophils % 78.1 % (38.7-73.9); Platelet Count 450 T/CUMM (130-400); Red Blood Count 2.21 MC/CUMM (3.8-5.5); White Blood Count 14.6 T/CUMM (4-12)
[2017-11-02 22:29] LABS: Hemoglobin 6.4 GM/DL (12.0-16.0)
[2017-11-02 22:39] LABS: Calcium 8.7 MG/DL (8.5-10.1); Osmolality,Calculated 288.7 MOS/KG (273-304); Potassium 3.9 MMOL/L (3.5-5.1)
[2017-11-02 22:45] LABS: Troponin I Only 0.067 NG/ML (0.00-0.045)
[2017-11-03 03:31] LABS: Basophils # 0.1 10*3/uL (0.0-0.2); Basophils % 0.5 % (0.0-0.8); Eosinophils # 0.2 10*3/uL (0.0-0.87); Eosinophils % 1.2 % (0.00-10.9); Immature Granulocytes % 0.7 %; Immature Granulocytes Absolute 0.12 #; Lymphocytes % 11.4 % (21.3-54.2); Mean Corpuscular HGB Conc 31.6 GM/DL (32-36); Mean Corpuscular Hemoglobin 29 PG (27-34); Mean Corpuscular Volume 90.9 FL (87-102); Mean Platelet Volume 9.5 FL (9.6-12.0); Monocytes # 1.3 10*3/uL (0.11-0.8); Monocytes % 7.3 % (1.7-12.7); Neutrophils # 13.7 10*3/uL (1.4-7.4); Neutrophils % 78.9 % (38.7-73.9); Platelet Count 440 T/CUMM (130-400); Red Blood Count 2.09 MC/CUMM (3.8-5.5); Red Cell Distribution Width 18.2 % (9.3-17.3); White Blood Count 17.4 T/CUMM (4-12)
[2017-11-03 03:59] LABS: ABG Base Excess 2.9 MMOL/L (-2.5-2.5); ABG HCO3 27.1 MMOL/L (20-26); ABG Oxygen Saturation 99.9 % (95-100); ABG PCO2 35.5 MM HG (35-48); ABG TCO2 24.7 MMOL/L (23-27); Allen Test Positive; Pt O2 Delivery Device Ventilator
[2017-11-03 04:15] LABS: Calcium 8.7 MG/DL (8.5-10.1); Osmolality,Calculated 286.7 MOS/KG (273-304); Potassium 3.5 MMOL/L (3.5-5.1)
[2017-11-03 04:45] LABS: Apearance,Urine Slightly Hazy (Clear); Bilirubin,Urine Negative (Negative); Blood, Urine Small mg/dL (Negative); Glucose,Urine (UA) 50 mg/dL (Negative); Ketones,Urine Negative (Negative); Mucus,Urine Occasional /LPF (Occasional); Nitrite,Urine Negative (Negative); Protein,Urine 100 MG/DL; RBC,Urine 12 /HPF (0-4); Squamous Epithelial Cell,Urine Occasional /HPF (0-10); Urine Color Yellow (Yellow); Urine Urobilinogen < 2.0 EU/DL (0.2-1.0); WBC,Urine 5 /HPF (0-6)
[2017-11-04 04:10] LABS: ABG Base Excess 1.8 MMOL/L (-2.5-2.5); ABG HCO3 24.7 MMOL/L (20-26); ABG PCO2 32.1 MM HG (35-48); ABG PH 7.504 (7.35-7.45); ABG PO2 216.3 MM HG (80-95); ABG TCO2 25.7 MMOL/L (23-27)
[2017-11-04 04:58] LABS: Basophils # 0.1 10*3/uL (0.0-0.2); Basophils % 1.4 % (0.0-0.8); Eosinophils # 0.3 10*3/uL (0.0-0.87); Eosinophils % 3.8 % (0.00-10.9); Hemoglobin 8.9 GM/DL (12.0-16.0); Immature Granulocytes % 0.6 %; Immature Granulocytes Absolute 0.05 #; Lymphocytes # 1.2 10*3/uL (1.4-4.0); Lymphocytes % 13.4 % (21.3-54.2); Mean Corpuscular Hemoglobin 29 PG (27-34); Mean Corpuscular Volume 89.1 FL (87-102); Mean Platelet Volume 9.4 FL (9.6-12.0); Monocytes # 0.6 10*3/uL (0.11-0.8); Monocytes % 6.7 % (1.7-12.7); Neutrophils # 6.4 10*3/uL (1.4-7.4); Neutrophils % 74.1 % (38.7-73.9); Platelet Count 403 T/CUMM (130-400); Red Blood Count 3.03 MC/CUMM (3.8-5.5); Red Cell Distribution Width 17.2 % (9.3-17.3); White Blood Count 8.6 T/CUMM (4-12)
[2017-11-04 05:25] LABS: Calcium 8.5 MG/DL (8.5-10.1); Osmolality,Calculated 282.4 MOS/KG (273-304)
[2017-11-05 03:09] LABS: ABG Base Excess -0.6 MMOL/L (-2.5-2.5); ABG HCO3 23.9 MMOL/L (20-26); ABG Oxygen Saturation 99.2 % (95-100); ABG PCO2 32.8 MM HG (35-48); ABG PH 7.451 (7.35-7.45)
[2017-11-05 03:55] LABS: Basophils # 0.1 10*3/uL (0.0-0.2); Basophils % 0.8 % (0.0-0.8); Eosinophils # 0.2 10*3/uL (0.0-0.87); Eosinophils % 2.9 % (0.00-10.9); Hematocrit 25.4 VOL% (35.7-47.0); Hemoglobin 8.5 GM/DL (12.0-16.0); Immature Granulocytes % 0.4 %; Immature Granulocytes Absolute 0.03 #; Lymphocytes % 11.6 % (21.3-54.2); Mean Corpuscular HGB Conc 33.5 GM/DL (32-36); Mean Corpuscular Hemoglobin 29 PG (27-34); Mean Corpuscular Volume 87.9 FL (87-102); Mean Platelet Volume 9.9 FL (9.6-12.0); Monocytes # 0.5 10*3/uL (0.11-0.8); Monocytes % 5.5 % (1.7-12.7); Neutrophils # 6.6 10*3/uL (1.4-7.4); Neutrophils % 78.8 % (38.7-73.9); Platelet Count 449 T/CUMM (130-400); Red Blood Count 2.89 MC/CUMM (3.8-5.5); Red Cell Distribution Width 17.3 % (9.3-17.3); White Blood Count 8.3 T/CUMM (4-12)
[2017-11-05 04:12] LABS: Calcium 8.4 MG/DL (8.5-10.1); Osmolality,Calculated 284.1 MOS/KG (273-304); Potassium 3.9 MMOL/L (3.5-5.1)
[2017-11-06 04:20] LABS: ABG Base Excess -0.6 MMOL/L (-2.5-2.5); ABG HCO3 23.9 MMOL/L (20-26); ABG Oxygen Saturation 99.1 % (95-100); ABG PCO2 38.2 MM HG (35-48); ABG PH 7.404 (7.35-7.45); ABG TCO2 22.1 MMOL/L (23-27); Allen Test Positive; Pt O2 Delivery Device Ventilator
[2017-11-06 05:54] LABS: Basophils # 0.1 10*3/uL (0.0-0.2); Basophils % 1.2 % (0.0-0.8); Eosinophils # 0.3 10*3/uL (0.0-0.87); Eosinophils % 3.6 % (0.00-10.9); Hematocrit 29.1 VOL% (35.7-47.0); Hemoglobin 9.2 GM/DL (12.0-16.0); Immature Granulocytes % 0.5 %; Immature Granulocytes Absolute 0.04 #; Lymphocytes # 1.7 10*3/uL (1.4-4.0); Lymphocytes % 20.2 % (21.3-54.2); Mean Corpuscular HGB Conc 31.6 GM/DL (32-36); Mean Corpuscular Hemoglobin 29 PG (27-34); Mean Corpuscular Volume 92.7 FL (87-102); Mean Platelet Volume 9.2 FL (9.6-12.0); Monocytes # 0.7 10*3/uL (0.11-0.8); Monocytes % 8.1 % (1.7-12.7); Neutrophils # 5.5 10*3/uL (1.4-7.4); Neutrophils % 66.4 % (38.7-73.9); Platelet Count 491 T/CUMM (130-400); Red Blood Count 3.14 MC/CUMM (3.8-5.5); Red Cell Distribution Width 17.4 % (9.3-17.3); White Blood Count 8.3 T/CUMM (4-12)
[2017-11-06 06:20] LABS: Albumin 1.7 G/DL (3.4-5.0); Bilirubin,Direct 0.21 MG/DL (0.0-0.20); Bilirubin,Indirect 0.3 MG/DL (0.0-1.0); Bilirubin,Total 0.5 MG/DL (0.2-1.0); Prealbumin 13.4 MG/DL (20-40); Total Protein 7.3 G/DL (6.4-8.3)
[2017-11-06 06:23] LABS: Calcium 8.4 MG/DL (8.5-10.1); Osmolality,Calculated 283.3 MOS/KG (273-304); Potassium 4.4 MMOL/L (3.5-5.1)
[2017-11-06 10:05] LABS: ABG Base Excess -0.9 MMOL/L (-2.5-2.5); ABG HCO3 22.8 MMOL/L (20-26); ABG Oxygen Saturation 97.2 % (95-100); ABG PH 7.444 (7.35-7.45); ABG PO2 106.3 MM HG (80-95); ABG TCO2 23.8 MMOL/L (23-27); Allen Test Positive
[2017-11-06 11:42] LABS: ABG Base Excess 0.4 MMOL/L (-2.5-2.5); ABG HCO3 24.7 MMOL/L (20-26); ABG Oxygen Saturation 94.1 % (95-100); ABG PH 7.429 (7.35-7.45); ABG PO2 73.1 MM HG (80-95); ABG TCO2 22.6 MMOL/L (23-27); Allen Test Positive
[2017-11-07 03:42] LABS: ABG Base Excess -0.7 MMOL/L (-2.5-2.5); ABG HCO3 23.8 MMOL/L (20-26); ABG Oxygen Saturation 97.7 % (95-100); ABG PCO2 42.2 MM HG (35-48); ABG PH 7.372 (7.35-7.45); ABG TCO2 22.6 MMOL/L (23-27)
[2017-11-07 04:48] LABS: Basophils # 0.1 10*3/uL (0.0-0.2); Basophils % 1.2 % (0.0-0.8); Eosinophils # 0.2 10*3/uL (0.0-0.87); Eosinophils % 2.3 % (0.00-10.9); Hematocrit 28.7 VOL% (35.7-47.0); Immature Granulocytes % 0.5 %; Immature Granulocytes Absolute 0.05 #; Lymphocytes # 1.7 10*3/uL (1.4-4.0); Lymphocytes % 17.8 % (21.3-54.2); Mean Corpuscular HGB Conc 31.4 GM/DL (32-36); Mean Corpuscular Hemoglobin 29 PG (27-34); Mean Corpuscular Volume 93.8 FL (87-102); Mean Platelet Volume 9.7 FL (9.6-12.0); Monocytes # 0.7 10*3/uL (0.11-0.8); Neutrophils # 6.7 10*3/uL (1.4-7.4); Neutrophils % 71.2 % (38.7-73.9); Platelet Count 478 T/CUMM (130-400); Red Blood Count 3.06 MC/CUMM (3.8-5.5); White Blood Count 9.4 T/CUMM (4-12)
[2017-11-07 05:10] LABS: Calcium 8.6 MG/DL (8.5-10.1); Osmolality,Calculated 285.1 MOS/KG (273-304); Potassium 3.8 MMOL/L (3.5-5.1)
[2017-11-08 04:18] LABS: Basophils # 0.1 10*3/uL (0.0-0.2); Basophils % 1.3 % (0.0-0.8); Eosinophils # 0.3 10*3/uL (0.0-0.87); Eosinophils % 3.9 % (0.00-10.9); Hematocrit 27.5 VOL% (35.7-47.0); Hemoglobin 8.5 GM/DL (12.0-16.0); Immature Granulocytes % 0.3 %; Immature Granulocytes Absolute 0.02 #; Lymphocytes # 1.8 10*3/uL (1.4-4.0); Lymphocytes % 24.2 % (21.3-54.2); Mean Corpuscular HGB Conc 30.9 GM/DL (32-36); Mean Corpuscular Hemoglobin 29 PG (27-34); Mean Corpuscular Volume 93.9 FL (87-102); Mean Platelet Volume 9.8 FL (9.6-12.0); Monocytes # 0.7 10*3/uL (0.11-0.8); Monocytes % 9.4 % (1.7-12.7); Neutrophils # 4.5 10*3/uL (1.4-7.4); Neutrophils % 60.9 % (38.7-73.9); Platelet Count 454 T/CUMM (130-400); Red Blood Count 2.93 MC/CUMM (3.8-5.5); Red Cell Distribution Width 16.7 % (9.3-17.3); White Blood Count 7.4 T/CUMM (4-12)
[2017-11-08 05:00] LABS: Calcium 8.6 MG/DL (8.5-10.1); Potassium 3.8 MMOL/L (3.5-5.1); Prealbumin 15.6 MG/DL (20-40)
[2017-11-09 06:20] LABS: Basophils # 0.1 10*3/uL (0.0-0.2); Basophils % 0.9 % (0.0-0.8); Eosinophils # 0.2 10*3/uL (0.0-0.87); Eosinophils % 2.5 % (0.00-10.9); Hematocrit 25.5 VOL% (35.7-47.0); Hemoglobin 8.2 GM/DL (12.0-16.0); Immature Granulocytes % 0.3 %; Immature Granulocytes Absolute 0.03 #; Lymphocytes # 2.1 10*3/uL (1.4-4.0); Lymphocytes % 23.7 % (21.3-54.2); Mean Corpuscular HGB Conc 32.2 GM/DL (32-36); Mean Corpuscular Hemoglobin 29 PG (27-34); Mean Corpuscular Volume 91.4 FL (87-102); Mean Platelet Volume 9.9 FL (9.6-12.0); Monocytes % 10.9 % (1.7-12.7); Neutrophils # 5.5 10*3/uL (1.4-7.4); Neutrophils % 61.7 % (38.7-73.9); Platelet Count 435 T/CUMM (130-400); Red Blood Count 2.79 MC/CUMM (3.8-5.5); Red Cell Distribution Width 16.5 % (9.3-17.3); White Blood Count 8.8 T/CUMM (4-12)
[2017-11-09 06:35] LABS: Osmolality,Calculated 285.1 MOS/KG (273-304)
[2017-11-09 17:08] VITALS: BP 153/76
[2017-11-14 15:22] LABS: S. Pneumo Serotype 1 14.8 mcg/mL (>=2.3); S. Pneumo Serotype 10A 12.8 mcg/mL (>=2.9); S. Pneumo Serotype 11A 1.6 mcg/mL (>=2.4); S. Pneumo Serotype 12F 0.9 mcg/mL (>=0.6); S. Pneumo Serotype 14 17.3 mcg/mL (>=7.0); S. Pneumo Serotype 15B 2.5 mcg/mL (>=3.3); S. Pneumo Serotype 17F 18.2 mcg/mL (>=7.8); S. Pneumo Serotype 18C 3.8 mcg/mL (>=3.3); S. Pneumo Serotype 19A 13.5 mcg/mL (>=17.1); S. Pneumo Serotype 19F 8.9 mcg/mL (>=15.0); S. Pneumo Serotype 2 0.9 mcg/mL (>=1.0); S. Pneumo Serotype 20 3.1 mcg/mL (>=1.3); S. Pneumo Serotype 22F 24.1 mcg/mL (>=7.2); S. Pneumo Serotype 23F 34.2 mcg/mL (>=8.0); S. Pneumo Serotype 3 6.6 mcg/mL (>=1.8); S. Pneumo Serotype 33F 3.9 mcg/mL (>=1.7); S. Pneumo Serotype 6B 8.2 mcg/mL (>=4.7); S. Pneumo Serotype 7F 15.1 mcg/mL (>=3.2); S. Pneumo Serotype 8 4.6 mcg/mL (>=2.9); S. Pneumo Serotype 9N 10.5 mcg/mL (>=9.2); S. Pneumo Serotype 9V 28.3 mcg/mL (>=2.6)
== END 2017-11-09 18:35 | disposition home or self-care (01) | DRG 710 ==
LOC: N.ED 20:56 → SUATTDRO 11-03 01:37 → N.EDINP 11-03 01:37 → N.ICU 11-03 02:44 → N.3E 11-08 16:03
PROVIDERS: ADMIT Internal Medicine Cardiovascular Disease; ATTEND Internal Medicine

== ENCOUNTER 2017-11-21 16:37 | Inpatient (IN) ==
[2017-11-21] MEDS ORDERED: ONDANSETRON 4 MG/2 ML VIAL IV STA (17:11)
[2017-11-21] MEDS ORDERED: ONDANSETRON 4 MG/2 ML VIAL ONE (17:11)
[2017-11-21 17:39] LABS: Apearance,Urine CLEAR (Clear); Bilirubin,Urine Negative (Negative); Blood, Urine Small mg/dL (Negative); Glucose,Urine (UA) Negative (Negative); Ketones,Urine Negative (Negative); Nitrite,Urine Negative (Negative); Protein,Urine 30 MG/DL; RBC,Urine 2 /HPF (0-4); Squamous Epithelial Cell,Urine Occasional /HPF (0-10); Urine Color Yellow (Yellow); Urine Specific Gravity 1.006 (1.001-1.035); Urine Urobilinogen < 2.0 EU/DL (0.2-1.0); WBC,Urine 1 /HPF (0-6)
[2017-11-21] MEDS ORDERED: MORPHINE 4 MG/1 ML VIAL IV STA ×2 (17:41→20:48)
[2017-11-21] MEDS ORDERED: MORPHINE 4 MG/1 ML VIAL ONE (17:42)
[2017-11-21 18:00] LABS: Basophils # 0.1 10*3/uL (0.0-0.2); Basophils % 0.7 % (0.0-0.8); Eosinophils # 0.2 10*3/uL (0.0-0.87); Eosinophils % 1.6 % (0.00-10.9); Hematocrit 26.8 VOL% (35.7-47.0); Immature Granulocytes % 0.3 %; Immature Granulocytes Absolute 0.03 #; Lymphocytes % 18.3 % (21.3-54.2); Mean Corpuscular HGB Conc 33.6 GM/DL (32-36); Mean Corpuscular Hemoglobin 30 PG (27-34); Mean Corpuscular Volume 89.9 FL (87-102); Mean Platelet Volume 9.9 FL (9.6-12.0); Monocytes # 0.8 10*3/uL (0.11-0.8); Monocytes % 7.4 % (1.7-12.7); Neutrophils # 7.9 10*3/uL (1.4-7.4); Neutrophils % 71.7 % (38.7-73.9); Platelet Count 458 T/CUMM (130-400); Red Blood Count 2.98 MC/CUMM (3.8-5.5); Red Cell Distribution Width 14.9 % (9.3-17.3); White Blood Count 11.1 T/CUMM (4-12)
[2017-11-21 18:30] LABS: Albumin 2.6 G/DL (3.4-5.0); Bilirubin,Total 0.4 MG/DL (0.2-1.0); Calcium 9.8 MG/DL (8.5-10.1); Osmolality,Calculated 283.2 MOS/KG (273-304); Total Protein 9.1 G/DL (6.4-8.3)
[2017-11-21] MEDS ORDERED: DEXTROSE 50% 25 GM/50 ML VIAL IV PRN (23:53)
[2017-11-21] MEDS ORDERED: GLUCAGON 1 MG VIAL IM PRN (23:53)
[2017-11-22] MEDS: APIXABAN 5 MG TABLET PO SCH ×3 (00:45→23:05)
[2017-11-22] MEDS: SODIUM CHLORIDE 0.9% 1,000 ML IV SCH ×3 (00:45→22:55)
[2017-11-22 06:53] LABS: Basophils # 0.1 10*3/uL (0.0-0.2); Basophils % 1.1 % (0.0-0.8); Eosinophils # 0.3 10*3/uL (0.0-0.87); Eosinophils % 3.3 % (0.00-10.9); Hematocrit 24.9 VOL% (35.7-47.0); Hemoglobin 8.2 GM/DL (12.0-16.0); Immature Granulocytes % 0.4 %; Immature Granulocytes Absolute 0.03 #; Lymphocytes # 1.6 10*3/uL (1.4-4.0); Lymphocytes % 19.4 % (21.3-54.2); Mean Corpuscular HGB Conc 32.9 GM/DL (32-36); Mean Corpuscular Hemoglobin 30 PG (27-34); Mean Corpuscular Volume 91.5 FL (87-102); Mean Platelet Volume 10.1 FL (9.6-12.0); Monocytes % 11.7 % (1.7-12.7); Neutrophils # 5.3 10*3/uL (1.4-7.4); Neutrophils % 64.1 % (38.7-73.9); Platelet Count 377 T/CUMM (130-400); Red Blood Count 2.72 MC/CUMM (3.8-5.5); Red Cell Distribution Width 14.8 % (9.3-17.3); White Blood Count 8.3 T/CUMM (4-12)
[2017-11-22 07:09] LABS: Albumin 2.2 G/DL (3.4-5.0); Bilirubin,Total 0.7 MG/DL (0.2-1.0); Calcium 9.9 MG/DL (8.5-10.1); Osmolality,Calculated 283.2 MOS/KG (273-304); Potassium 3.6 MMOL/L (3.5-5.1); Total Protein 8.3 G/DL (6.4-8.3)
[2017-11-22] MEDS: MORPHINE 4 MG/1 ML VIAL IV PRN ×3 (07:30→23:15)
[2017-11-22] MEDS: INSULIN REGULAR 100 UNIT/ML SUBCUT SCH ×4 (07:38→23:22)
[2017-11-22] MEDS: METOCLOPRAMIDE 10 MG TABLET PO SCH ×4 (08:14→23:15)
[2017-11-22] MEDS: FUROSEMIDE 40 MG TABLET PO SCH ×2 (08:16→15:47)
[2017-11-22] MEDS: POTASSIUM CHLORIDE 20 MEQ TABLET PO SCH (09:38)
[2017-11-22] MEDS: DILTIAZEM CD 180 MG CAPSULE PO SCH ×2 (09:38→23:00)
[2017-11-22] MEDS: ASPIRIN CHEW 81 MG TABLET PO SCH (09:38)
[2017-11-22] MEDS: levETIRAcetam 500 MG TABLET PO SCH ×2 (09:38→23:06)
[2017-11-22] MEDS: CARVEDILOL 25 MG TABLET PO SCH ×2 (09:38→23:05)
[2017-11-22] MEDS: PANTOPRAZOLE 40 MG TABLET PO SCH ×2 (09:39→23:05)
[2017-11-22] MEDS: FLUoxetine 20 MG CAPSULE PO SCH (09:39)
[2017-11-22] MEDS: ONDANSETRON 4 MG/2 ML VIAL IV PRN (15:46)
[2017-11-22] MEDS ORDERED: ROSUVASTATIN 10 MG TABLET PO SCH (21:00)
[2017-11-23] MEDS: MORPHINE 4 MG/1 ML VIAL IV PRN ×4 (06:11→22:13)
[2017-11-23] MEDS ORDERED: GLUCAGON 1 MG VIAL IM PRN (08:57)
[2017-11-23] MEDS ORDERED: DEXTROSE 50% 25 GM/50 ML VIAL IV PRN (08:57)
[2017-11-23] MEDS: ASPIRIN CHEW 81 MG TABLET PO SCH (09:37)
[2017-11-23] MEDS: POTASSIUM CHLORIDE 20 MEQ TABLET PO SCH (09:37)
[2017-11-23] MEDS: METOCLOPRAMIDE 10 MG TABLET PO SCH ×4 (09:38→22:14)
[2017-11-23] MEDS: CARVEDILOL 25 MG TABLET PO SCH ×2 (09:38→22:14)
[2017-11-23] MEDS: FLUoxetine 20 MG CAPSULE PO SCH (09:38)
[2017-11-23] MEDS: FUROSEMIDE 40 MG TABLET PO SCH ×2 (09:39→16:25)
[2017-11-23] MEDS: APIXABAN 5 MG TABLET PO SCH ×2 (09:39→22:14)
[2017-11-23] MEDS: DILTIAZEM CD 180 MG CAPSULE PO SCH ×2 (09:39→22:13)
[2017-11-23] MEDS: INSULIN REGULAR 100 UNIT/ML SUBCUT SCH ×4 (09:40→22:44)
[2017-11-23] MEDS: levETIRAcetam 500 MG TABLET PO SCH ×2 (09:43→22:14)
[2017-11-23] MEDS: PANTOPRAZOLE 40 MG TABLET PO SCH ×2 (09:43→22:14)
[2017-11-23] MEDS: SODIUM CHLORIDE 0.9% 1,000 ML IV SCH ×3 (14:15→18:44)
[2017-11-24] MEDS: MORPHINE 4 MG/1 ML VIAL IV PRN ×5 (02:37→20:59)
[2017-11-24] MEDS: SODIUM CHLORIDE 0.9% 1,000 ML IV SCH ×3 (03:56→22:54)
[2017-11-24 06:50] LABS: Basophils # 0.1 10*3/uL (0.0-0.2); Basophils % 0.8 % (0.0-0.8); Eosinophils # 0.2 10*3/uL (0.0-0.87); Eosinophils % 2.2 % (0.00-10.9); Hematocrit 27.5 VOL% (35.7-47.0); Hemoglobin 8.7 GM/DL (12.0-16.0); Immature Granulocytes % 0.3 %; Immature Granulocytes Absolute 0.02 #; Lymphocytes # 1.9 10*3/uL (1.4-4.0); Lymphocytes % 25.8 % (21.3-54.2); Mean Corpuscular HGB Conc 31.6 GM/DL (32-36); Mean Corpuscular Hemoglobin 29 PG (27-34); Mean Corpuscular Volume 92.9 FL (87-102); Mean Platelet Volume 9.6 FL (9.6-12.0); Monocytes # 0.7 10*3/uL (0.11-0.8); Monocytes % 9.9 % (1.7-12.7); Neutrophils # 4.4 10*3/uL (1.4-7.4); Platelet Count 402 T/CUMM (130-400); Red Blood Count 2.96 MC/CUMM (3.8-5.5); Red Cell Distribution Width 14.6 % (9.3-17.3); White Blood Count 7.3 T/CUMM (4-12)
[2017-11-24 07:01] LABS: Calcium 9.5 MG/DL (8.5-10.1); Osmolality,Calculated 277.8 MOS/KG (273-304); Potassium 3.9 MMOL/L (3.5-5.1)
[2017-11-24] MEDS: INSULIN REGULAR 100 UNIT/ML SUBCUT SCH ×4 (08:30→21:04)
[2017-11-24] MEDS: ASPIRIN CHEW 81 MG TABLET PO SCH (09:17)
[2017-11-24] MEDS: POTASSIUM CHLORIDE 20 MEQ TABLET PO SCH (09:18)
[2017-11-24] MEDS: FLUoxetine 20 MG CAPSULE PO SCH (09:18)
[2017-11-24] MEDS: CARVEDILOL 25 MG TABLET PO SCH ×2 (09:18→21:01)
[2017-11-24] MEDS: FUROSEMIDE 40 MG TABLET PO SCH ×2 (09:18→16:18)
[2017-11-24] MEDS: METOCLOPRAMIDE 10 MG TABLET PO SCH ×4 (09:18→21:01)
[2017-11-24] MEDS: DILTIAZEM CD 180 MG CAPSULE PO SCH ×2 (09:18→21:01)
[2017-11-24] MEDS: levETIRAcetam 500 MG TABLET PO SCH ×2 (09:18→21:01)
[2017-11-24] MEDS: PANTOPRAZOLE 40 MG TABLET PO SCH ×2 (09:18→21:01)
[2017-11-24] MEDS: APIXABAN 5 MG TABLET PO SCH ×2 (09:18→21:01)
[2017-11-24] MEDS: ONDANSETRON 4 MG/2 ML VIAL IV PRN ×2 (10:50→20:58)
[2017-11-25] MEDS: MORPHINE 4 MG/1 ML VIAL IV PRN ×5 (00:54→21:41)
[2017-11-25 06:33] LABS: Basophils # 0.1 10*3/uL (0.0-0.2); Basophils % 0.6 % (0.0-0.8); Eosinophils # 0.1 10*3/uL (0.0-0.87); Eosinophils % 1.8 % (0.00-10.9); Hematocrit 24.6 VOL% (35.7-47.0); Hemoglobin 7.9 GM/DL (12.0-16.0); Immature Granulocytes % 0.3 %; Immature Granulocytes Absolute 0.02 #; Lymphocytes # 2.1 10*3/uL (1.4-4.0); Lymphocytes % 26.5 % (21.3-54.2); Mean Corpuscular HGB Conc 32.1 GM/DL (32-36); Mean Corpuscular Hemoglobin 29 PG (27-34); Mean Corpuscular Volume 91.1 FL (87-102); Mean Platelet Volume 9.9 FL (9.6-12.0); Monocytes % 12.1 % (1.7-12.7); Neutrophils # 4.6 10*3/uL (1.4-7.4); Neutrophils % 58.7 % (38.7-73.9); Platelet Count 363 T/CUMM (130-400); Red Cell Distribution Width 14.9 % (9.3-17.3); White Blood Count 7.9 T/CUMM (4-12)
[2017-11-25 06:58] LABS: Calcium 9.1 MG/DL (8.5-10.1); Osmolality,Calculated 283.5 MOS/KG (273-304); Potassium 3.7 MMOL/L (3.5-5.1)
[2017-11-25] MEDS: APIXABAN 5 MG TABLET PO SCH ×2 (09:25→20:37)
[2017-11-25] MEDS: FUROSEMIDE 40 MG TABLET PO SCH ×2 (09:25→17:24)
[2017-11-25] MEDS: DILTIAZEM CD 180 MG CAPSULE PO SCH ×2 (09:25→20:37)
[2017-11-25] MEDS: PANTOPRAZOLE 40 MG TABLET PO SCH ×2 (09:25→20:37)
[2017-11-25] MEDS: POTASSIUM CHLORIDE 20 MEQ TABLET PO SCH (09:25)
[2017-11-25] MEDS: CARVEDILOL 25 MG TABLET PO SCH ×2 (09:25→20:37)
[2017-11-25] MEDS: levETIRAcetam 500 MG TABLET PO SCH ×2 (09:25→20:37)
[2017-11-25] MEDS: FLUoxetine 20 MG CAPSULE PO SCH (09:25)
[2017-11-25] MEDS: ASPIRIN CHEW 81 MG TABLET PO SCH (09:25)
[2017-11-25] MEDS: METOCLOPRAMIDE 10 MG TABLET PO SCH ×4 (09:25→20:37)
[2017-11-25] MEDS: INSULIN REGULAR 100 UNIT/ML SUBCUT SCH ×4 (10:07→20:37)
[2017-11-25] MEDS: SODIUM CHLORIDE 0.9% 1,000 ML IV SCH (10:08)
[2017-11-26] MEDS: SODIUM CHLORIDE 0.9% 1,000 ML IV SCH ×4 (04:36→23:18)
[2017-11-26] MEDS: INSULIN REGULAR 100 UNIT/ML SUBCUT SCH ×4 (07:45→21:39)
[2017-11-26] MEDS: APIXABAN 5 MG TABLET PO SCH ×2 (08:25→20:23)
[2017-11-26] MEDS: FUROSEMIDE 40 MG TABLET PO SCH ×2 (08:26→15:17)
[2017-11-26] MEDS: levETIRAcetam 500 MG TABLET PO SCH ×2 (08:26→20:20)
[2017-11-26] MEDS: POTASSIUM CHLORIDE 20 MEQ TABLET PO SCH (08:26)
[2017-11-26] MEDS: METOCLOPRAMIDE 10 MG TABLET PO SCH ×4 (08:26→20:19)
[2017-11-26] MEDS: CARVEDILOL 25 MG TABLET PO SCH ×2 (08:26→20:19)
[2017-11-26] MEDS: PANTOPRAZOLE 40 MG TABLET PO SCH ×2 (08:26→20:20)
[2017-11-26] MEDS: FLUoxetine 20 MG CAPSULE PO SCH (08:26)
[2017-11-26] MEDS: DILTIAZEM CD 180 MG CAPSULE PO SCH ×2 (08:26→20:20)
[2017-11-26] MEDS: ASPIRIN CHEW 81 MG TABLET PO SCH (08:26)
[2017-11-26] MEDS: MORPHINE 4 MG/1 ML VIAL IV PRN ×4 (08:31→21:39)
[2017-11-26 10:27] LABS: Basophils # 0.1 10*3/uL (0.0-0.2); Basophils % 0.6 % (0.0-0.8); Eosinophils # 0.2 10*3/uL (0.0-0.87); Eosinophils % 2.2 % (0.00-10.9); Hematocrit 24.1 VOL% (35.7-47.0); Hemoglobin 7.7 GM/DL (12.0-16.0); Immature Granulocytes % 0.5 %; Immature Granulocytes Absolute 0.04 #; Lymphocytes # 1.9 10*3/uL (1.4-4.0); Mean Corpuscular Hemoglobin 30 PG (27-34); Mean Corpuscular Volume 93.4 FL (87-102); Mean Platelet Volume 9.8 FL (9.6-12.0); Monocytes # 0.9 10*3/uL (0.11-0.8); Monocytes % 9.9 % (1.7-12.7); Neutrophils # 5.5 10*3/uL (1.4-7.4); Neutrophils % 64.8 % (38.7-73.9); Platelet Count 350 T/CUMM (130-400); Red Blood Count 2.58 MC/CUMM (3.8-5.5); Red Cell Distribution Width 14.7 % (9.3-17.3); White Blood Count 8.6 T/CUMM (4-12)
[2017-11-26 10:53] LABS: Calcium 7.9 MG/DL (8.5-10.1); Osmolality,Calculated 285.5 MOS/KG (273-304); Potassium 3.7 MMOL/L (3.5-5.1)
[2017-11-26] MEDS ORDERED: SKIN HEALING OINT (AQUAPHOR) 50 GM TUBE TOP PRN (12:38)
[2017-11-26] MEDS: COLLAGENASE OINT 30 GM TUBE TOP SCH (13:03)
[2017-11-27] MEDS: SODIUM CHLORIDE 0.9% 1,000 ML IV SCH ×3 (02:33→21:44)
[2017-11-27] MEDS: MORPHINE 4 MG/1 ML VIAL IV PRN ×3 (06:26→18:41)
[2017-11-27 07:17] LABS: Basophils % 0.4 % (0.0-0.8); Eosinophils # 0.2 10*3/uL (0.0-0.87); Eosinophils % 2.4 % (0.00-10.9); Hematocrit 23.5 VOL% (35.7-47.0); Hemoglobin 7.6 GM/DL (12.0-16.0); Immature Granulocytes % 0.3 %; Immature Granulocytes Absolute 0.03 #; Lymphocytes # 2.5 10*3/uL (1.4-4.0); Lymphocytes % 26.2 % (21.3-54.2); Mean Corpuscular HGB Conc 32.3 GM/DL (32-36); Mean Corpuscular Hemoglobin 30 PG (27-34); Mean Corpuscular Volume 93.3 FL (87-102); Mean Platelet Volume 9.7 FL (9.6-12.0); Monocytes % 10.8 % (1.7-12.7); Neutrophils # 5.6 10*3/uL (1.4-7.4); Neutrophils % 59.9 % (38.7-73.9); Platelet Count 369 T/CUMM (130-400); Red Blood Count 2.52 MC/CUMM (3.8-5.5); Red Cell Distribution Width 14.7 % (9.3-17.3); White Blood Count 9.4 T/CUMM (4-12)
[2017-11-27 07:21] LABS: Osmolality,Calculated 288.4 MOS/KG (273-304); Potassium 3.6 MMOL/L (3.5-5.1)
[2017-11-27] MEDS ORDERED: CLINDAMYCIN INJ 900 MG in PREMIX 1 EACH IV ONE (08:23)
[2017-11-27] MEDS: INSULIN REGULAR 100 UNIT/ML SUBCUT SCH ×4 (08:31→21:30)
[2017-11-27] MEDS: METOCLOPRAMIDE 10 MG TABLET PO SCH ×4 (08:33→21:45)
[2017-11-27] MEDS: FUROSEMIDE 40 MG TABLET PO SCH ×2 (08:37→15:34)
[2017-11-27] MEDS: COLLAGENASE OINT 30 GM TUBE TOP SCH (08:40)
[2017-11-27] MEDS: ASPIRIN CHEW 81 MG TABLET PO SCH (08:41)
[2017-11-27] MEDS: APIXABAN 5 MG TABLET PO SCH ×2 (08:41→21:45)
[2017-11-27] MEDS: CARVEDILOL 25 MG TABLET PO SCH ×2 (09:09→21:45)
[2017-11-27] MEDS: DILTIAZEM CD 180 MG CAPSULE PO SCH ×2 (09:09→21:45)
[2017-11-27] MEDS ORDERED: ONDANSETRON 4 MG/2 ML VIAL ONE (10:26)
[2017-11-27] MEDS ORDERED: PHENYLEPHRINE 1 MG/10 ML SYRINGE IV ONE ×2 (10:26→13:02)
[2017-11-27] MEDS ORDERED: fentaNYL 100 MCG/2 ML VIAL ONE (13:02)
[2017-11-27] MEDS ORDERED: MIDAZOLAM 2 MG/2 ML VIAL ONE (13:02)
[2017-11-27] MEDS ORDERED: PROPOFOL 200 MG/20 ML VIAL IV ONE (13:03)
[2017-11-27] MEDS ORDERED: KETOROLAC 30 MG/1 ML VIAL ONE (13:04)
[2017-11-27] MEDS ORDERED: ACETAMINOPHEN 1,000 MG/100 ML VIAL IV ONE (13:04)
[2017-11-27] MEDS ORDERED: SEVOFLURANE 1 UNIT/15 MINUTE INH ONE (13:05)
[2017-11-27] MEDS ORDERED: SODIUM CHLORIDE 0.9% 1,000 ML IV ONE (13:05)
[2017-11-27] MEDS ORDERED: ePHEDrine 50 MG/ML AMP ONE (13:08)
[2017-11-27] MEDS: levETIRAcetam 500 MG TABLET PO SCH ×2 (13:10→21:45)
[2017-11-27] MEDS: POTASSIUM CHLORIDE 20 MEQ TABLET PO SCH (13:10)
[2017-11-27] MEDS: PANTOPRAZOLE 40 MG TABLET PO SCH ×2 (13:10→21:45)
[2017-11-27] MEDS: FLUoxetine 20 MG CAPSULE PO SCH (13:10)
[2017-11-27] MEDS ORDERED: SODIUM CHLORIDE 0.9% 1,000 ML IV PRN (14:50)
[2017-11-27] MEDS: GABAPENTIN 100 MG CAPSULE PO SCH ×2 (15:10→21:45)
[2017-11-28] MEDS: MORPHINE 4 MG/1 ML VIAL IV PRN ×4 (00:11→20:46)
[2017-11-28 05:37] LABS: Basophils # 0.1 10*3/uL (0.0-0.2); Basophils % 0.5 % (0.0-0.8); Eosinophils # 0.3 10*3/uL (0.0-0.87); Eosinophils % 3.1 % (0.00-10.9); Hematocrit 25.7 VOL% (35.7-47.0); Hemoglobin 8.5 GM/DL (12.0-16.0); Immature Granulocytes % 0.8 %; Immature Granulocytes Absolute 0.09 #; Lymphocytes # 2.3 10*3/uL (1.4-4.0); Lymphocytes % 20.9 % (21.3-54.2); Mean Corpuscular HGB Conc 33.1 GM/DL (32-36); Mean Corpuscular Hemoglobin 30 PG (27-34); Mean Corpuscular Volume 89.5 FL (87-102); Mean Platelet Volume 9.7 FL (9.6-12.0); Monocytes % 9.2 % (1.7-12.7); Neutrophils # 7.2 10*3/uL (1.4-7.4); Neutrophils % 65.5 % (38.7-73.9); Platelet Count 326 T/CUMM (130-400); Red Blood Count 2.87 MC/CUMM (3.8-5.5); Red Cell Distribution Width 16.5 % (9.3-17.3)
[2017-11-28 05:50] LABS: Calcium 8.8 MG/DL (8.5-10.1); Osmolality,Calculated 291.1 MOS/KG (273-304); Potassium 4.1 MMOL/L (3.5-5.1)
[2017-11-28] MEDS: SODIUM CHLORIDE 0.9% 1,000 ML IV SCH ×3 (06:18→23:23)
[2017-11-28] MEDS: POTASSIUM CHLORIDE 20 MEQ TABLET PO SCH (08:23)
[2017-11-28] MEDS: FLUoxetine 20 MG CAPSULE PO SCH (08:23)
[2017-11-28] MEDS: DILTIAZEM CD 180 MG CAPSULE PO SCH ×2 (08:23→20:45)
[2017-11-28] MEDS: CARVEDILOL 25 MG TABLET PO SCH ×2 (08:24→20:45)
[2017-11-28] MEDS: FUROSEMIDE 40 MG TABLET PO SCH ×2 (08:24→15:41)
[2017-11-28] MEDS: GABAPENTIN 100 MG CAPSULE PO SCH ×3 (08:24→20:45)
[2017-11-28] MEDS: PANTOPRAZOLE 40 MG TABLET PO SCH ×2 (08:24→20:46)
[2017-11-28] MEDS: APIXABAN 5 MG TABLET PO SCH ×2 (08:24→20:45)
[2017-11-28] MEDS: levETIRAcetam 500 MG TABLET PO SCH ×2 (08:24→20:45)
[2017-11-28] MEDS: METOCLOPRAMIDE 10 MG TABLET PO SCH ×4 (08:24→20:46)
[2017-11-28] MEDS: ASPIRIN CHEW 81 MG TABLET PO SCH (08:24)
[2017-11-28] MEDS ORDERED: MAGNESIUM SULF RIDER 2 GM in PREMIX 1 EACH IV PRN (08:51)
[2017-11-28] MEDS ORDERED: MAGNESIUM SULF RIDER 4 GM in PREMIX 1 EACH IV PRN (08:51)
[2017-11-28] MEDS ORDERED: oxyCODONE/ACETAMINOPHEN 5-325 MG TABLET PO PRN (10:46)
[2017-11-28] MEDS ORDERED: MORPHINE 4 MG/1 ML VIAL IV PRN (10:47)
[2017-11-28] MEDS: INSULIN REGULAR 100 UNIT/ML SUBCUT SCH ×4 (11:06→20:50)
[2017-11-28] MEDS: COLLAGENASE OINT 30 GM TUBE TOP SCH (12:53)
[2017-11-28] MEDS: oxyCODONE/ACETAMINOPHEN 5-325 MG TABLET PO PRN (23:22)
[2017-11-29] MEDS: MORPHINE 4 MG/1 ML VIAL IV PRN ×5 (00:46→21:34)
[2017-11-29] MEDS: SODIUM CHLORIDE 0.9% 1,000 ML IV SCH ×3 (02:52→23:10)
[2017-11-29] MEDS ORDERED: COLLAGENASE OINT 30 GM TUBE TOP ONE (04:53)
[2017-11-29 06:58] LABS: Calcium 9.3 MG/DL (8.5-10.1); Osmolality,Calculated 281.7 MOS/KG (273-304); Potassium 4.3 MMOL/L (3.5-5.1)
[2017-11-29 07:34] LABS: Basophils # 0.1 10*3/uL (0.0-0.2); Basophils % 0.5 % (0.0-0.8); Eosinophils # 0.5 10*3/uL (0.0-0.87); Eosinophils % 3.7 % (0.00-10.9); Hematocrit 26.3 VOL% (35.7-47.0); Hemoglobin 8.5 GM/DL (12.0-16.0); Immature Granulocytes % 0.5 %; Immature Granulocytes Absolute 0.06 #; Lymphocytes # 1.3 10*3/uL (1.4-4.0); Lymphocytes % 9.6 % (21.3-54.2); Mean Corpuscular HGB Conc 32.3 GM/DL (32-36); Mean Corpuscular Hemoglobin 30 PG (27-34); Mean Corpuscular Volume 91.3 FL (87-102); Mean Platelet Volume 9.2 FL (9.6-12.0); Monocytes % 7.3 % (1.7-12.7); Neutrophils # 10.3 10*3/uL (1.4-7.4); Neutrophils % 78.4 % (38.7-73.9); Platelet Count 322 T/CUMM (130-400); Red Blood Count 2.88 MC/CUMM (3.8-5.5); Red Cell Distribution Width 16.3 % (9.3-17.3); White Blood Count 13.1 T/CUMM (4-12)
[2017-11-29] MEDS: ASPIRIN CHEW 81 MG TABLET PO SCH (09:13)
[2017-11-29] MEDS: DILTIAZEM CD 180 MG CAPSULE PO SCH ×2 (09:13→21:34)
[2017-11-29] MEDS: FLUoxetine 20 MG CAPSULE PO SCH (09:14)
[2017-11-29] MEDS: METOCLOPRAMIDE 10 MG TABLET PO SCH ×4 (09:14→21:34)
[2017-11-29] MEDS: CARVEDILOL 25 MG TABLET PO SCH ×2 (09:14→21:34)
[2017-11-29] MEDS: GABAPENTIN 100 MG CAPSULE PO SCH (09:14)
[2017-11-29] MEDS: FUROSEMIDE 40 MG TABLET PO SCH ×2 (09:14→16:07)
[2017-11-29] MEDS: POTASSIUM CHLORIDE 20 MEQ TABLET PO SCH (09:14)
[2017-11-29] MEDS: APIXABAN 5 MG TABLET PO SCH ×2 (09:14→21:34)
[2017-11-29] MEDS: PANTOPRAZOLE 40 MG TABLET PO SCH ×2 (09:14→21:34)
[2017-11-29] MEDS: levETIRAcetam 500 MG TABLET PO SCH ×2 (09:15→21:34)
[2017-11-29] MEDS: INSULIN REGULAR 100 UNIT/ML SUBCUT SCH ×4 (09:18→21:33)
[2017-11-29] MEDS: oxyCODONE/ACETAMINOPHEN 5-325 MG TABLET PO PRN ×2 (14:26→23:09)
[2017-11-29] MEDS: cefTRIAXone 1,000 MG in SYRINGE 1 EACH IV SCH (14:29)
[2017-11-29 15:04] LABS: Apearance,Urine CLOUDY (Clear); Bacteria,Urine Few /HPF (Few); Bilirubin,Urine Negative (Negative); Blood, Urine Small mg/dL (Negative); Glucose,Urine (UA) Negative (Negative); Ketones,Urine Negative (Negative); Nitrite,Urine Negative (Negative); Protein,Urine Negative; RBC,Urine 18 /HPF (0-4); Squamous Epithelial Cell,Urine Occasional /HPF (0-10); Urine Color Yellow (Yellow); Urine Specific Gravity 1.006 (1.001-1.035); Urine Urobilinogen < 2.0 EU/DL (0.2-1.0); WBC,Urine 335 /HPF (0-6)
[2017-11-29] MEDS: GABAPENTIN 300 MG CAPSULE PO SCH ×2 (16:06→21:34)
[2017-11-30] MEDS: MORPHINE 4 MG/1 ML VIAL IV PRN ×4 (03:19→17:28)
[2017-11-30] MEDS: INSULIN REGULAR 100 UNIT/ML SUBCUT SCH ×4 (10:16→23:24)
[2017-11-30] MEDS: METOCLOPRAMIDE 10 MG TABLET PO SCH ×4 (11:11→20:33)
[2017-11-30] MEDS: POTASSIUM CHLORIDE 20 MEQ TABLET PO SCH (11:24)
[2017-11-30] MEDS: DILTIAZEM CD 180 MG CAPSULE PO SCH ×2 (11:25→20:32)
[2017-11-30] MEDS: PANTOPRAZOLE 40 MG TABLET PO SCH ×2 (11:26→20:33)
[2017-11-30] MEDS: FLUoxetine 20 MG CAPSULE PO SCH (11:26)
[2017-11-30] MEDS: levETIRAcetam 500 MG TABLET PO SCH ×2 (11:26→20:33)
[2017-11-30] MEDS: GABAPENTIN 300 MG CAPSULE PO SCH ×3 (11:26→20:33)
[2017-11-30] MEDS: FUROSEMIDE 40 MG TABLET PO SCH ×2 (11:27→16:52)
[2017-11-30] MEDS: APIXABAN 5 MG TABLET PO SCH ×2 (11:27→20:33)
[2017-11-30] MEDS: ASPIRIN CHEW 81 MG TABLET PO SCH (11:27)
[2017-11-30] MEDS: CARVEDILOL 25 MG TABLET PO SCH ×2 (11:27→20:32)
[2017-11-30] MEDS: SODIUM CHLORIDE 0.9% 1,000 ML IV SCH ×3 (11:33→19:24)
[2017-11-30] MEDS: oxyCODONE/ACETAMINOPHEN 5-325 MG TABLET PO PRN ×2 (14:13→20:33)
[2017-11-30] MEDS: cefTRIAXone 1,000 MG in SYRINGE 1 EACH IV SCH (14:15)
[2017-12-01] MEDS: MORPHINE 4 MG/1 ML VIAL IV PRN ×2 (04:16→11:12)
[2017-12-01 04:31] LABS: Basophils # 0.1 10*3/uL (0.0-0.2); Basophils % 0.5 % (0.0-0.8); Eosinophils # 0.5 10*3/uL (0.0-0.87); Hematocrit 21.7 VOL% (35.7-47.0); Hemoglobin 6.8 GM/DL (12.0-16.0); Immature Granulocytes % 0.5 %; Immature Granulocytes Absolute 0.05 #; Lymphocytes # 2.6 10*3/uL (1.4-4.0); Lymphocytes % 28.2 % (21.3-54.2); Mean Corpuscular HGB Conc 31.3 GM/DL (32-36); Mean Corpuscular Hemoglobin 29 PG (27-34); Mean Corpuscular Volume 92.3 FL (87-102); Mean Platelet Volume 9.6 FL (9.6-12.0); Monocytes # 1.2 10*3/uL (0.11-0.8); Monocytes % 12.6 % (1.7-12.7); Neutrophils # 4.9 10*3/uL (1.4-7.4); Neutrophils % 53.2 % (38.7-73.9); Platelet Count 309 T/CUMM (130-400); Red Blood Count 2.35 MC/CUMM (3.8-5.5); Red Cell Distribution Width 16.2 % (9.3-17.3); White Blood Count 9.2 T/CUMM (4-12)
[2017-12-01 04:52] LABS: Osmolality,Calculated 282.7 MOS/KG (273-304); Potassium 3.7 MMOL/L (3.5-5.1)
[2017-12-01] MEDS: SODIUM CHLORIDE 0.9% 1,000 ML IV SCH ×3 (07:05→18:46)
[2017-12-01] MEDS: INSULIN REGULAR 100 UNIT/ML SUBCUT SCH ×4 (08:48→21:14)
[2017-12-01] MEDS: GABAPENTIN 300 MG CAPSULE PO SCH ×3 (09:10→21:12)
[2017-12-01] MEDS: PANTOPRAZOLE 40 MG TABLET PO SCH ×2 (09:10→21:11)
[2017-12-01] MEDS: METOCLOPRAMIDE 10 MG TABLET PO SCH ×4 (09:10→21:13)
[2017-12-01] MEDS: DILTIAZEM CD 180 MG CAPSULE PO SCH ×2 (09:11→21:11)
[2017-12-01] MEDS: APIXABAN 5 MG TABLET PO SCH ×2 (09:11→21:12)
[2017-12-01] MEDS: FLUoxetine 20 MG CAPSULE PO SCH (09:11)
[2017-12-01] MEDS: CARVEDILOL 25 MG TABLET PO SCH ×2 (09:12→21:14)
[2017-12-01] MEDS: POTASSIUM CHLORIDE 20 MEQ TABLET PO SCH (09:12)
[2017-12-01] MEDS: levETIRAcetam 500 MG TABLET PO SCH ×2 (09:12→21:13)
[2017-12-01] MEDS: FUROSEMIDE 40 MG TABLET PO SCH ×2 (09:12→17:03)
[2017-12-01] MEDS: ASPIRIN CHEW 81 MG TABLET PO SCH (09:13)
[2017-12-01 11:23] LABS: % Iron Saturation 7.5 % (18-50); Ferritin 676.5 ng/ml (8-252)
[2017-12-01 11:40] LABS: Hematocrit 24.2 VOL% (35.7-47.0); Hemoglobin 7.8 GM/DL (12.0-16.0)
[2017-12-01] MEDS: oxyCODONE/ACETAMINOPHEN 5-325 MG TABLET PO PRN ×2 (13:42→21:13)
[2017-12-01] MEDS: cefTRIAXone 1,000 MG in SYRINGE 1 EACH IV SCH (17:04)
[2017-12-02] MEDS: SODIUM CHLORIDE 0.9% 1,000 ML IV SCH ×4 (03:15→19:30)
[2017-12-02 05:25] LABS: Basophils # 0.1 10*3/uL (0.0-0.2); Basophils % 0.6 % (0.0-0.8); Eosinophils # 0.5 10*3/uL (0.0-0.87); Eosinophils % 6.6 % (0.00-10.9); Hematocrit 22.7 VOL% (35.7-47.0); Immature Granulocytes % 0.8 %; Immature Granulocytes Absolute 0.06 #; Lymphocytes # 2.7 10*3/uL (1.4-4.0); Lymphocytes % 34.4 % (21.3-54.2); Mean Corpuscular HGB Conc 30.8 GM/DL (32-36); Mean Corpuscular Hemoglobin 29 PG (27-34); Mean Corpuscular Volume 94.2 FL (87-102); Mean Platelet Volume 10.5 FL (9.6-12.0); Monocytes # 1.3 10*3/uL (0.11-0.8); Monocytes % 16.2 % (1.7-12.7); Neutrophils # 3.2 10*3/uL (1.4-7.4); Neutrophils % 41.4 % (38.7-73.9); Platelet Count 322 T/CUMM (130-400); Red Blood Count 2.41 MC/CUMM (3.8-5.5); White Blood Count 7.8 T/CUMM (4-12)
[2017-12-02 05:47] LABS: Calcium 8.8 MG/DL (8.5-10.1); Osmolality,Calculated 288.4 MOS/KG (273-304); Potassium 3.8 MMOL/L (3.5-5.1)
[2017-12-02 06:02] LABS: Band Neutrophils 2 % (0-10); Eosinophils 9 % (0-10); Lymphocytes 30 % (20-55); Platelet Estimate Normal; Segmented Neutrophils 47 % (50-85); Total Cells Counted 100
[2017-12-02 06:03] LABS: Anisocytosis 2+; Macrocytosis 1+; Microcytosis 1+
[2017-12-02] MEDS ORDERED: SODIUM CHLORIDE 0.9% 1,000 ML IV PRN (08:12)
[2017-12-02] MEDS: INSULIN REGULAR 100 UNIT/ML SUBCUT SCH ×4 (09:40→22:02)
[2017-12-02] MEDS: DILTIAZEM CD 180 MG CAPSULE PO SCH ×2 (09:57→20:51)
[2017-12-02] MEDS: FLUoxetine 20 MG CAPSULE PO SCH (09:58)
[2017-12-02] MEDS: GABAPENTIN 300 MG CAPSULE PO SCH ×3 (09:58→20:52)
[2017-12-02] MEDS: METOCLOPRAMIDE 10 MG TABLET PO SCH ×4 (09:58→20:52)
[2017-12-02] MEDS: PANTOPRAZOLE 40 MG TABLET PO SCH ×2 (09:58→20:52)
[2017-12-02] MEDS: levETIRAcetam 500 MG TABLET PO SCH ×2 (09:58→20:52)
[2017-12-02] MEDS: CARVEDILOL 25 MG TABLET PO SCH ×2 (09:58→20:52)
[2017-12-02] MEDS: POTASSIUM CHLORIDE 20 MEQ TABLET PO SCH (09:58)
[2017-12-02] MEDS: APIXABAN 5 MG TABLET PO SCH ×2 (09:58→20:52)
[2017-12-02] MEDS: SULFAMETHOX/TRIMETHOPRIM 800-160 MG TABLET PO SCH ×2 (10:03→20:51)
[2017-12-02] MEDS: ASPIRIN CHEW 81 MG TABLET PO SCH (10:03)
[2017-12-02] MEDS: FUROSEMIDE 40 MG TABLET PO SCH ×2 (10:03→16:42)
[2017-12-02] MEDS: MORPHINE 4 MG/1 ML VIAL IV PRN ×2 (16:23→22:27)
[2017-12-02] MEDS: oxyCODONE/ACETAMINOPHEN 5-325 MG TABLET PO PRN (20:52)
[2017-12-03 05:51] LABS: Basophils # 0.1 10*3/uL (0.0-0.2); Eosinophils # 0.6 10*3/uL (0.0-0.87); Eosinophils % 7.4 % (0.00-10.9); Hematocrit 30.1 VOL% (35.7-47.0); Immature Granulocytes % 0.2 %; Immature Granulocytes Absolute 0.02 #; Lymphocytes # 2.9 10*3/uL (1.4-4.0); Lymphocytes % 35.1 % (21.3-54.2); Mean Corpuscular HGB Conc 32.2 GM/DL (32-36); Mean Corpuscular Hemoglobin 29 PG (27-34); Mean Corpuscular Volume 90.7 FL (87-102); Mean Platelet Volume 9.6 FL (9.6-12.0); Monocytes % 12.4 % (1.7-12.7); Neutrophils # 3.6 10*3/uL (1.4-7.4); Neutrophils % 43.9 % (38.7-73.9); Platelet Count 340 T/CUMM (130-400); Red Blood Count 3.32 MC/CUMM (3.8-5.5); Red Cell Distribution Width 15.8 % (9.3-17.3); White Blood Count 8.3 T/CUMM (4-12)
[2017-12-03 05:52] LABS: Hemoglobin 9.7 GM/DL (12.0-16.0)
[2017-12-03 06:21] LABS: Calcium 8.9 MG/DL (8.5-10.1); Potassium 3.8 MMOL/L (3.5-5.1)
[2017-12-03] MEDS: SODIUM CHLORIDE 0.9% 1,000 ML IV SCH ×3 (07:12→17:59)
[2017-12-03] MEDS: INSULIN REGULAR 100 UNIT/ML SUBCUT SCH ×3 (08:45→17:58)
[2017-12-03] MEDS: SULFAMETHOX/TRIMETHOPRIM 800-160 MG TABLET PO SCH (08:53)
[2017-12-03] MEDS: oxyCODONE/ACETAMINOPHEN 5-325 MG TABLET PO PRN ×2 (08:53→13:09)
[2017-12-03] MEDS: ASPIRIN CHEW 81 MG TABLET PO SCH (08:53)
[2017-12-03] MEDS: GABAPENTIN 300 MG CAPSULE PO SCH ×2 (08:53→15:52)
[2017-12-03] MEDS: POTASSIUM CHLORIDE 20 MEQ TABLET PO SCH (08:54)
[2017-12-03] MEDS: CARVEDILOL 25 MG TABLET PO SCH (08:54)
[2017-12-03] MEDS: levETIRAcetam 500 MG TABLET PO SCH (08:54)
[2017-12-03] MEDS: APIXABAN 5 MG TABLET PO SCH (08:54)
[2017-12-03] MEDS: FUROSEMIDE 40 MG TABLET PO SCH ×2 (08:54→15:52)
[2017-12-03] MEDS: METOCLOPRAMIDE 10 MG TABLET PO SCH ×3 (08:54→15:52)
[2017-12-03] MEDS: DILTIAZEM CD 180 MG CAPSULE PO SCH (08:54)
[2017-12-03] MEDS: FLUoxetine 20 MG CAPSULE PO SCH (08:57)
[2017-12-03] MEDS: PANTOPRAZOLE 40 MG TABLET PO SCH (08:57)
[2017-12-03 17:17] VITALS: BP 124/65
== END 2017-12-03 18:00 | DRG 950 ==
LOC: EDBD → EDUNIT# → N.ED 16:37 → SUATTDRO 23:29 → N.EDINP 23:29 → N.5E 11-22 05:15 → N.EDINP 11-22 05:17 → N.3E 11-22 11:03
PROVIDERS: ATTEND Internal Medicine

== ENCOUNTER 2017-12-25 07:43 | Inpatient (IN) ==
[2017-12-25] MEDS ORDERED: ONDANSETRON 4 MG/2 ML VIAL IV STA ×2 (07:58→08:12)
[2017-12-25] MEDS ORDERED: SODIUM CHLORIDE 0.9% 1,000 ML IV STA (07:58)
[2017-12-25] MEDS ORDERED: HYDROmorphone 2 MG/1 ML VIAL ONE (08:11)
[2017-12-25] MEDS ORDERED: HYDROmorphone 2 MG/1 ML VIAL IV STA ×2 (08:12→10:58)
[2017-12-25 08:15] LABS: Basophils % 0.3 % (0.0-0.8); Eosinophils # 0.3 10*3/uL (0.0-0.87); Eosinophils % 2.2 % (0.00-10.9); Hematocrit 41.4 VOL% (35.7-47.0); Hemoglobin 13.7 GM/DL (12.0-16.0); Immature Granulocytes % 0.4 %; Immature Granulocytes Absolute 0.05 #; Lymphocytes # 3.4 10*3/uL (1.4-4.0); Lymphocytes % 25.9 % (21.3-54.2); Mean Corpuscular HGB Conc 33.1 GM/DL (32-36); Mean Corpuscular Hemoglobin 30 PG (27-34); Mean Corpuscular Volume 89.4 FL (87-102); Mean Platelet Volume 9.8 FL (9.6-12.0); Monocytes % 7.9 % (1.7-12.7); Neutrophils # 8.2 10*3/uL (1.4-7.4); Neutrophils % 63.3 % (38.7-73.9); Platelet Count 372 T/CUMM (130-400); Red Blood Count 4.63 MC/CUMM (3.8-5.5); Red Cell Distribution Width 15.8 % (9.3-17.3)
[2017-12-25 08:35] LABS: Lactic Acid 1.9 MMOL/L (0.4-2.0)
[2017-12-25 08:44] LABS: Albumin 3.5 G/DL (3.4-5.0); Bilirubin,Total 0.7 MG/DL (0.2-1.0); Calcium 11.3 MG/DL (8.5-10.1); Osmolality,Calculated 291.1 MOS/KG (273-304); Potassium 3.7 MMOL/L (3.5-5.1); Total Protein 10.6 G/DL (6.4-8.3)
[2017-12-25 09:24] LABS: Apearance,Urine CLOUDY (Clear); Bacteria,Urine Moderate /HPF (Few); Bilirubin,Urine Negative (Negative); Blood, Urine Moderate mg/dL (Negative); Glucose,Urine (UA) 50 mg/dL (Negative); Ketones,Urine Negative (Negative); Mucus,Urine Occasional /LPF (Occasional); Nitrite,Urine Negative (Negative); Protein,Urine >=500 MG/DL; RBC,Urine 77 /HPF (0-4); Squamous Epithelial Cell,Urine Occasional /HPF (0-10); Urine Color Yellow (Yellow); Urine Specific Gravity 1.014 (1.001-1.035); Urine Urobilinogen < 2.0 EU/DL (0.2-1.0); WBC,Urine 9 /HPF (0-6)
[2017-12-25] MEDS ORDERED: cefTRIAXone 1,000 MG in SODIUM CHLORIDE 0.9% 100 ML IV STA (09:50)
[2017-12-25] MEDS ORDERED: ACETAMINOPHEN 325 MG TABLET PO PRN (09:58)
[2017-12-25] MEDS ORDERED: DEXTROSE 50% 25 GM/50 ML VIAL IV PRN (09:58)
[2017-12-25] MEDS ORDERED: GLUCAGON 1 MG VIAL IM PRN (09:58)
[2017-12-25] MEDS ORDERED: BISACODYL 5 MG TABLET PO PRN (09:58)
[2017-12-25] MEDS ORDERED: ENOXAPARIN 30 MG/0.3 ML SYRINGE SUBCUT SCH (10:00)
[2017-12-25] MEDS ORDERED: hydrALAZINE 20 MG/1 ML VIAL IV PRN (10:06)
[2017-12-25] MEDS ORDERED: hydrALAZINE 20 MG/1 ML VIAL IV STA (10:20)
[2017-12-25 11:06] LABS: Risk Ratio 2.56; VLDL CHOLESTEROL 21.8 MG/DL
[2017-12-25] MEDS: SODIUM CHLORIDE 0.9% 1,000 ML IV SCH (12:08)
[2017-12-25] MEDS: PANTOPRAZOLE 40 MG TABLET PO SCH (12:12)
[2017-12-25] MEDS: INSULIN REGULAR 100 UNIT/ML SUBCUT SCH ×2 (12:17→17:32)
[2017-12-25 12:39] LABS: Protein/Creatinine Ratio,Urine 3.9 RATIO
[2017-12-25] MEDS: ASPIRIN EC 81 MG TABLET PO SCH (13:15)
[2017-12-25] MEDS: FLUoxetine 20 MG CAPSULE PO SCH (13:15)
[2017-12-25] MEDS: levETIRAcetam 500 MG TABLET PO SCH (13:15)
[2017-12-25] MEDS: DILTIAZEM CD 180 MG CAPSULE PO SCH (13:16)
[2017-12-25] MEDS: CARVEDILOL 25 MG TABLET PO SCH (13:17)
[2017-12-25] MEDS: APIXABAN 5 MG TABLET PO SCH (13:17)
[2017-12-25] MEDS: oxyCODONE/ACETAMINOPHEN 5-325 MG TABLET PO PRN (14:38)
[2017-12-25 15:14] LABS: Troponin I 0.188 NG/ML (0.00-0.045)
[2017-12-25] MEDS: ONDANSETRON 4 MG/2 ML VIAL IV PRN (16:19)
[2017-12-25] MEDS: cefTRIAXone 1,000 MG in SYRINGE 1 EACH IV SCH (18:18)
[2017-12-25] MEDS: MORPHINE 4 MG/1 ML VIAL IV PRN (19:12)
[2017-12-25 21:17] LABS: Troponin I 0.187 NG/ML (0.00-0.045)
[2017-12-26] MEDS: SODIUM CHLORIDE 0.9% 1,000 ML IV SCH ×2 (01:30→15:44)
[2017-12-26] MEDS: MORPHINE 4 MG/1 ML VIAL IV PRN (01:55)
[2017-12-26] MEDS: DILTIAZEM CD 180 MG CAPSULE PO SCH ×3 (02:35→21:00)
[2017-12-26] MEDS: APIXABAN 5 MG TABLET PO SCH ×2 (02:36→13:38)
[2017-12-26] MEDS: CARVEDILOL 25 MG TABLET PO SCH ×3 (02:36→21:01)
[2017-12-26] MEDS: INSULIN REGULAR 100 UNIT/ML SUBCUT SCH ×5 (02:36→21:55)
[2017-12-26] MEDS: levETIRAcetam 500 MG TABLET PO SCH ×3 (02:37→21:00)
[2017-12-26 05:34] LABS: Basophils # 0.1 10*3/uL (0.0-0.2); Basophils % 0.5 % (0.0-0.8); Eosinophils # 0.4 10*3/uL (0.0-0.87); Eosinophils % 3.3 % (0.00-10.9); Hematocrit 35.9 VOL% (35.7-47.0); Immature Granulocytes % 0.4 %; Immature Granulocytes Absolute 0.05 #; Lymphocytes # 3.2 10*3/uL (1.4-4.0); Lymphocytes % 26.2 % (21.3-54.2); Mean Corpuscular HGB Conc 32.6 GM/DL (32-36); Mean Corpuscular Hemoglobin 29 PG (27-34); Mean Corpuscular Volume 90.2 FL (87-102); Mean Platelet Volume 9.9 FL (9.6-12.0); Monocytes # 1.2 10*3/uL (0.11-0.8); Monocytes % 9.5 % (1.7-12.7); Neutrophils # 7.4 10*3/uL (1.4-7.4); Neutrophils % 60.1 % (38.7-73.9); Platelet Count 306 T/CUMM (130-400); Red Blood Count 3.98 MC/CUMM (3.8-5.5); Red Cell Distribution Width 15.8 % (9.3-17.3); White Blood Count 12.3 T/CUMM (4-12)
[2017-12-26 05:42] LABS: Calcium 9.8 MG/DL (8.5-10.1); Osmolality,Calculated 297.4 MOS/KG (273-304); Potassium 3.2 MMOL/L (3.5-5.1)
[2017-12-26 05:50] LABS: Hemoglobin 11.7 GM/DL (12.0-16.0)
[2017-12-26 06:18] LABS: Alanine Aminotransferase 35 U/L (13-56); Albumin 2.9 G/DL (3.4-5.0); Alkaline Phosphatase 122 U/L (45-117); Aspartate Amino Transferase 28 U/L (0-37); Bilirubin,Total < 0.39 MG/DL (0.2-1.0); Blood Urea Nitrogen 60 MG/DL (7-18); Calcium 9.7 MG/DL (8.5-10.1); Cholesterol 123 MG/DL (50-200); Glucose 135 MG/DL (74-106); HDL Cholesterol 42 MG/DL (40-60); Osmolality,Calculated 299.3 MOS/KG (273-304); Potassium 3.2 MMOL/L (3.5-5.1); Risk Ratio 2.93; Sodium 141 MMOL/L (136-145); Total Protein 8.7 G/DL (6.4-8.3); Triglycerides 113 MG/DL (2-150); VLDL CHOLESTEROL 22.6 MG/DL
[2017-12-26] MEDS ORDERED: POTASSIUM CHLORIDE 20 MEQ TABLET PO ONE ×2 (07:23→12:00)
[2017-12-26] MEDS ORDERED: MORPHINE 4 MG/1 ML VIAL IV ONE (08:10)
[2017-12-26 08:16] LABS: Total Protein (Chem) 10.6 G/DL (6.4-8.3)
[2017-12-26] MEDS ORDERED: PROPOFOL 200 MG/20 ML VIAL IV ONE (10:00)
[2017-12-26] MEDS ORDERED: LIDOCAINE 2% 5 ML VIAL ONE (10:00)
[2017-12-26] MEDS ORDERED: fentaNYL 100 MCG/2 ML VIAL ONE ×2 (10:00→11:17)
[2017-12-26] MEDS ORDERED: ONDANSETRON 4 MG/2 ML VIAL ONE (10:00)
[2017-12-26] MEDS ORDERED: PHENYLEPHRINE 1 MG/10 ML SYRINGE IV ONE (10:00)
[2017-12-26 10:49] LABS: Albumin (SPE) 4.6 G/DL (3.2-5.3); Albumin (SPE) Rel % 43.3 %; Alpha 1 (SPE) 0.3 G/DL (0.1-0.4)
[2017-12-26 10:50] LABS: Alpha 1 (SPE) Rel % 2.8 %; Alpha 2 (SPE) Rel % 19.1 %; Beta (SPE) Rel % 9.5 %; Gamma (SPE) 2.7 G/DL (0.7-1.7); Gamma (SPE) Rel % 25.3 %
[2017-12-26] MEDS: PANTOPRAZOLE 40 MG TABLET PO SCH (11:28)
[2017-12-26] MEDS: POTASSIUM CHLORIDE RIDER 10 MEQ in PREMIX 1 EACH IV PRN ×4 (12:18→15:43)
[2017-12-26] MEDS: cefTRIAXone 1,000 MG in SYRINGE 1 EACH IV SCH (13:18)
[2017-12-26] MEDS: PANTOPRAZOLE 40 MG VIAL IV SCH ×2 (13:18→20:58)
[2017-12-26] MEDS: FLUoxetine 20 MG CAPSULE PO SCH (13:23)
[2017-12-26] MEDS: ASPIRIN EC 81 MG TABLET PO SCH (13:24)
[2017-12-26] MEDS: oxyCODONE/ACETAMINOPHEN 5-325 MG TABLET PO PRN (14:52)
[2017-12-26] MEDS: ONDANSETRON 4 MG/2 ML VIAL IV PRN (20:59)
[2017-12-26] MEDS: CYANOCOBALAMIN 500 MCG TABLET PO SCH (21:00)
[2017-12-26] MEDS: FOLIC ACID 1 MG TABLET PO SCH (21:00)
[2017-12-26] MEDS: PROMETHAZINE 25 MG/1 ML VIAL IM PRN (22:10)
[2017-12-27] MEDS: POTASSIUM CHLORIDE RIDER 10 MEQ in PREMIX 1 EACH IV PRN (02:28)
[2017-12-27] MEDS ORDERED: POTASSIUM CHLORIDE 20 MEQ TABLET PO ONE (03:39)
[2017-12-27 04:17] LABS: Basophils # 0.1 10*3/uL (0.0-0.2); Basophils % 0.4 % (0.0-0.8); Eosinophils # 0.3 10*3/uL (0.0-0.87); Eosinophils % 2.1 % (0.00-10.9); Hematocrit 32.5 VOL% (35.7-47.0); Hemoglobin 10.5 GM/DL (12.0-16.0); Immature Granulocytes % 0.6 %; Immature Granulocytes Absolute 0.09 #; Lymphocytes # 2.4 10*3/uL (1.4-4.0); Mean Corpuscular HGB Conc 32.3 GM/DL (32-36); Mean Corpuscular Hemoglobin 30 PG (27-34); Mean Corpuscular Volume 91.3 FL (87-102); Mean Platelet Volume 10.1 FL (9.6-12.0); Monocytes # 1.2 10*3/uL (0.11-0.8); Monocytes % 7.4 % (1.7-12.7); Neutrophils # 11.9 10*3/uL (1.4-7.4); Neutrophils % 74.5 % (38.7-73.9); Platelet Count 265 T/CUMM (130-400); Red Blood Count 3.56 MC/CUMM (3.8-5.5); Red Cell Distribution Width 15.6 % (9.3-17.3); White Blood Count 15.9 T/CUMM (4-12)
[2017-12-27 05:00] LABS: Calcium 9.2 MG/DL (8.5-10.1); Osmolality,Calculated 292.3 MOS/KG (273-304); Potassium 3.7 MMOL/L (3.5-5.1)
[2017-12-27 06:20] LABS: Parathyroid Hormone Intact 45.3 PG/ML (18.4-80.1)
[2017-12-27] MEDS: PROMETHAZINE 25 MG/1 ML VIAL IM PRN ×2 (08:08→16:08)
[2017-12-27] MEDS: CYANOCOBALAMIN 500 MCG TABLET PO SCH ×2 (08:10→22:30)
[2017-12-27] MEDS: CARVEDILOL 25 MG TABLET PO SCH ×3 (08:11→22:30)
[2017-12-27] MEDS: DILTIAZEM CD 180 MG CAPSULE PO SCH ×2 (08:13→22:30)
[2017-12-27] MEDS: FLUoxetine 20 MG CAPSULE PO SCH (08:13)
[2017-12-27] MEDS: levETIRAcetam 500 MG TABLET PO SCH ×2 (08:14→22:30)
[2017-12-27] MEDS: ASPIRIN EC 81 MG TABLET PO SCH (08:14)
[2017-12-27] MEDS: INSULIN REGULAR 100 UNIT/ML SUBCUT SCH ×4 (09:21→22:03)
[2017-12-27] MEDS: SODIUM CHLORIDE 0.9% 1,000 ML IV SCH (09:21)
[2017-12-27] MEDS: PANTOPRAZOLE 40 MG VIAL IV SCH ×2 (09:22→23:58)
[2017-12-27] MEDS: oxyCODONE/ACETAMINOPHEN 5-325 MG TABLET PO PRN ×3 (11:31→22:33)
[2017-12-27] MEDS: cefTRIAXone 1,000 MG in SYRINGE 1 EACH IV SCH (12:18)
[2017-12-27 12:43] LABS: Immuno Free Light Chain Kappa 12.33 MG/DL (0.33-1.94); Immuno Free Light Chain Lambda 6.65 MG/DL (0.57-2.63); Immuno Free Light Chain Ratio 1.85 MG/DL (0.26-1.65)
[2017-12-27] MEDS: FOLIC ACID 1 MG TABLET PO SCH (22:30)
[2017-12-27] MEDS: PANTOPRAZOLE 40 MG TABLET PO SCH (22:35)
[2017-12-27 22:56] LABS: Collection Time,Urine 24 HOURS
[2017-12-27 22:57] LABS: Total Protein 24 Hr Ur Result 887 MG/24HR (0-149.1); Total Volume,Urine 1675 ML (400-2000)
[2017-12-28 02:43] LABS: Creatinine 24 Hr Urine Result 1.1 G/24HR (0.60-1.80)
[2017-12-28 04:29] LABS: Basophils # 0.1 10*3/uL (0.0-0.2); Basophils % 0.4 % (0.0-0.8); Eosinophils # 0.5 10*3/uL (0.0-0.87); Eosinophils % 3.1 % (0.00-10.9); Hematocrit 34.7 VOL% (35.7-47.0); Hemoglobin 10.9 GM/DL (12.0-16.0); Immature Granulocytes % 0.5 %; Immature Granulocytes Absolute 0.08 #; Lymphocytes # 3.1 10*3/uL (1.4-4.0); Lymphocytes % 17.9 % (21.3-54.2); Mean Corpuscular HGB Conc 31.4 GM/DL (32-36); Mean Corpuscular Hemoglobin 30 PG (27-34); Mean Corpuscular Volume 94.8 FL (87-102); Mean Platelet Volume 9.7 FL (9.6-12.0); Monocytes # 1.1 10*3/uL (0.11-0.8); Monocytes % 6.3 % (1.7-12.7); Neutrophils # 12.5 10*3/uL (1.4-7.4); Neutrophils % 71.8 % (38.7-73.9); Platelet Count 270 T/CUMM (130-400); Red Blood Count 3.66 MC/CUMM (3.8-5.5); Red Cell Distribution Width 15.8 % (9.3-17.3); White Blood Count 17.4 T/CUMM (4-12)
[2017-12-28] MEDS: SODIUM CHLORIDE 0.9% 1,000 ML IV SCH ×3 (04:50→22:51)
[2017-12-28 05:02] LABS: Calcium 9.7 MG/DL (8.5-10.1); Potassium 3.9 MMOL/L (3.5-5.1)
[2017-12-28] MEDS: oxyCODONE/ACETAMINOPHEN 5-325 MG TABLET PO PRN ×2 (05:30→16:36)
[2017-12-28 08:07] LABS: Immunoglobulin A 321 MG/DL (70-400); Immunoglobulin G 1710 MG/DL (700-1600); Immunoglobulin M 63 MG/DL (40-230)
[2017-12-28] MEDS: INSULIN REGULAR 100 UNIT/ML SUBCUT SCH ×4 (09:40→22:53)
[2017-12-28] MEDS: DILTIAZEM CD 180 MG CAPSULE PO SCH ×2 (09:42→22:52)
[2017-12-28] MEDS: CYANOCOBALAMIN 500 MCG TABLET PO SCH ×2 (09:42→22:56)
[2017-12-28] MEDS: levETIRAcetam 500 MG TABLET PO SCH ×2 (09:42→22:52)
[2017-12-28] MEDS: PANTOPRAZOLE 40 MG TABLET PO SCH ×2 (09:42→22:53)
[2017-12-28] MEDS: CARVEDILOL 25 MG TABLET PO SCH ×2 (09:42→22:52)
[2017-12-28] MEDS: ASPIRIN EC 81 MG TABLET PO SCH (09:42)
[2017-12-28] MEDS: FLUoxetine 20 MG CAPSULE PO SCH (09:42)
[2017-12-28] MEDS: CHOLECALCIFEROL 1,000 UNIT TABLET PO SCH (09:42)
[2017-12-28 09:49] LABS: 24 Hr Protein (Bench) 887 MG/24HR (0-149.1)
[2017-12-28 10:00] LABS: Immunoglobulin A (Chem) 321 MG/DL (70-400); Immunoglobulin G (Chem) 1710 MG/DL (700-1600); Immunoglobulin M (Chem) 63 MG/DL (40-230)
[2017-12-28] MEDS: cefTRIAXone 1,000 MG in SYRINGE 1 EACH IV SCH (12:00)
[2017-12-28] MEDS: PROMETHAZINE 25 MG/1 ML VIAL IM PRN (13:07)
[2017-12-28] MEDS: FOLIC ACID 1 MG TABLET PO SCH (22:52)
[2017-12-29 04:38] LABS: Basophils # 0.1 10*3/uL (0.0-0.2); Basophils % 0.3 % (0.0-0.8); Eosinophils # 0.5 10*3/uL (0.0-0.87); Eosinophils % 2.8 % (0.00-10.9); Hematocrit 28.6 VOL% (35.7-47.0); Immature Granulocytes % 0.5 %; Immature Granulocytes Absolute 0.09 #; Lymphocytes # 3.4 10*3/uL (1.4-4.0); Lymphocytes % 18.8 % (21.3-54.2); Mean Corpuscular HGB Conc 31.5 GM/DL (32-36); Mean Corpuscular Hemoglobin 30 PG (27-34); Mean Corpuscular Volume 94.7 FL (87-102); Mean Platelet Volume 11.1 FL (9.6-12.0); Monocytes # 1.3 10*3/uL (0.11-0.8); Monocytes % 7.3 % (1.7-12.7); Neutrophils # 12.8 10*3/uL (1.4-7.4); Neutrophils % 70.3 % (38.7-73.9); Platelet Count 191 T/CUMM (130-400); Red Blood Count 3.02 MC/CUMM (3.8-5.5); Red Cell Distribution Width 16.1 % (9.3-17.3); White Blood Count 18.3 T/CUMM (4-12)
[2017-12-29 04:55] LABS: Calcium 9.2 MG/DL (8.5-10.1); Osmolality,Calculated 291.1 MOS/KG (273-304); Potassium 3.7 MMOL/L (3.5-5.1)
[2017-12-29] MEDS: oxyCODONE/ACETAMINOPHEN 5-325 MG TABLET PO PRN (05:03)
[2017-12-29] MEDS: INSULIN REGULAR 100 UNIT/ML SUBCUT SCH ×2 (08:49→13:16)
[2017-12-29] MEDS: DILTIAZEM CD 180 MG CAPSULE PO SCH (08:50)
[2017-12-29] MEDS: FLUoxetine 20 MG CAPSULE PO SCH (08:50)
[2017-12-29] MEDS: PANTOPRAZOLE 40 MG TABLET PO SCH (08:51)
[2017-12-29] MEDS: CYANOCOBALAMIN 500 MCG TABLET PO SCH (08:51)
[2017-12-29] MEDS: CHOLECALCIFEROL 1,000 UNIT TABLET PO SCH (08:52)
[2017-12-29] MEDS: CARVEDILOL 25 MG TABLET PO SCH (08:52)
[2017-12-29] MEDS: levETIRAcetam 500 MG TABLET PO SCH (08:52)
[2017-12-29] MEDS: ASPIRIN EC 81 MG TABLET PO SCH (08:53)
[2017-12-29] MEDS: SODIUM CHLORIDE 0.9% 1,000 ML IV SCH (10:46)
[2017-12-29] MEDS: cefTRIAXone 1,000 MG in SYRINGE 1 EACH IV SCH (13:12)
[2017-12-29 13:28] VITALS: BP 113/59
== END 2017-12-29 15:47 | disposition home health service (06) | DRG 243 ==
LOC: EDUNIT# → EDBD → N.EDINP 07:43 → N.ED 07:43 → N.2W 11:20 → N.TELEN 13:25 → SUATTDRO 12-26 11:02
PROVIDERS: ADMIT Internal Medicine; ATTEND Hospitalist

== ENCOUNTER 2018-12-23 09:27 | Inpatient (IN) ==
[2018-12-23 10:54] LABS: Basophils % 0.4 % (0.0-0.8); Eosinophils # 0.1 10*3/uL (0.0-0.87); Eosinophils % 1.6 % (0.00-10.9); Hematocrit 34.4 VOL% (35.7-47.0); Hemoglobin 11.6 GM/DL (12.0-16.0); Immature Granulocytes % 0.3 %; Immature Granulocytes Absolute 0.03 #; Lymphocytes # 2.5 10*3/uL (1.4-4.0); Lymphocytes % 28.1 % (21.3-54.2); Mean Corpuscular HGB Conc 33.7 GM/DL (32-36); Mean Corpuscular Volume 92.5 FL (87-102); Mean Platelet Volume 9.4 FL (9.6-12.0); Monocytes % 9.4 % (1.7-12.7); Neutrophils % 60.2 % (38.7-73.9); Platelet Count 250 T/CUMM (130-400); Red Blood Count 3.72 MC/CUMM (3.8-5.5); White Blood Count 8.9 T/CUMM (4-12)
[2018-12-23 11:14] LABS: Albumin 3.3 G/DL (3.4-5.0); Bilirubin,Total 0.4 MG/DL (0.2-1.0); Osmolality,Calculated 276.4 MOS/KG (273-304); Total Protein 7.8 G/DL (6.4-8.3)
[2018-12-23 11:25] LABS: Apearance,Urine CLOUDY (Clear); Bacteria,Urine Occasional /HPF (Few); Bilirubin,Urine Negative (Negative); Blood, Urine Small mg/dL (Negative); Glucose,Urine (UA) >=500 mg/dL (Negative); Hyaline Casts,Urine 3 /LPF (0-3); Ketones,Urine Negative (Negative); Mucus,Urine Occasional /LPF (Occasional); Nitrite,Urine Negative (Negative); Protein,Urine Negative; RBC,Urine 82 /HPF (0-4); Squamous Epithelial Cell,Urine Occasional /HPF (0-10); Urine Color Yellow (Yellow); Urine Specific Gravity 1.007 (1.001-1.035); Urine Urobilinogen < 2.0 EU/DL (0.2-1.0); WBC,Urine 112 /HPF (0-6)
[2018-12-23] MEDS ORDERED: DEXTROSE 50% 25 GM/50 ML SYRINGE IV ONE (13:00)
[2018-12-23] MEDS ORDERED: DEXTROSE 50% 25 GM/50 ML VIAL IV STA (13:02)
[2018-12-23] MEDS ORDERED: POTASSIUM CHLORIDE 20 MEQ TABLET PO STA (13:04)
[2018-12-23] MEDS ORDERED: DEXT 5% NACL 0.45% KCL 40 MEQ 40 MEQ/1,000 ML BAG IV SCH (13:30)
[2018-12-23] MEDS ORDERED: PROMETHAZINE 25 MG/1 ML VIAL IM PRN (13:43)
[2018-12-23] MEDS ORDERED: ACETAMINOPHEN 325 MG TABLET PO PRN (13:43)
[2018-12-23] MEDS ORDERED: ONDANSETRON 4 MG/2 ML VIAL IV PRN (13:43)
[2018-12-23] MEDS ORDERED: GLUCAGON 1 MG VIAL IM PRN (13:45)
[2018-12-23] MEDS ORDERED: DEXTROSE 50% 25 GM/50 ML VIAL IV PRN (13:45)
[2018-12-23] MEDS ORDERED: POTASSIUM CHLORIDE 20 MEQ TABLET PO SCH (14:00)
[2018-12-23] MEDS: DEXTROSE 5% NACL 0.45% 1,000 ML IV SCH (14:38)
[2018-12-23] MEDS: PANTOPRAZOLE 40 MG TABLET PO SCH (14:38)
[2018-12-23] MEDS: POTASSIUM CHLORIDE 20 MEQ TABLET PO SCH ×2 (17:28→21:20)
[2018-12-23] MEDS ORDERED: INSULIN LISPRO 100 UNIT/ML SUBCUT SCH (18:00)
[2018-12-23] MEDS: INSULIN LISPRO 100 UNIT/ML SUBCUT SCH (19:07)
[2018-12-24] MEDS: INSULIN LISPRO 100 UNIT/ML SUBCUT SCH ×3 (00:34→06:44)
[2018-12-24 05:26] LABS: Basophils % 0.3 % (0.0-0.8); Eosinophils # 0.1 10*3/uL (0.0-0.87); Eosinophils % 1.7 % (0.00-10.9); Hemoglobin 11.2 GM/DL (12.0-16.0); Immature Granulocytes % 0.2 %; Immature Granulocytes Absolute 0.01 #; Lymphocytes # 3.6 10*3/uL (1.4-4.0); Lymphocytes % 55.1 % (21.3-54.2); Mean Corpuscular HGB Conc 32.9 GM/DL (32-36); Mean Corpuscular Volume 94.2 FL (87-102); Mean Platelet Volume 9.8 FL (9.6-12.0); Monocytes % 13.5 % (1.7-12.7); Neutrophils % 29.2 % (38.7-73.9); Platelet Count 234 T/CUMM (130-400); Red Blood Count 3.61 MC/CUMM (3.8-5.5); Red Cell Distribution Width 13.2 % (9.3-17.3); White Blood Count 6.5 T/CUMM (4-12)
[2018-12-24 05:54] LABS: Band Neutrophils 2 % (0-10); Eosinophils 4 % (0-10); Lymphocytes 54 % (20-55); Segmented Neutrophils 31 % (50-85)
[2018-12-24 05:55] LABS: Platelet Estimate Adequate; Total Cells Counted 100
[2018-12-24 06:18] LABS: Bilirubin,Total 0.4 MG/DL (0.2-1.0); Calcium 8.8 MG/DL (8.5-10.1); Osmolality,Calculated 288.4 MOS/KG (273-304); Thyroid Stimulating Hormone 0.819 uIU/ml (0.358-3.74)
[2018-12-24] MEDS: DEXTROSE 5% NACL 0.45% 1,000 ML IV SCH ×3 (06:43→22:54)
[2018-12-24] MEDS ORDERED: MAGNESIUM SULF RIDER 2 GM in PREMIX 1 EACH IV ONE ×2 (07:14→10:30)
[2018-12-24] MEDS: PANTOPRAZOLE 40 MG TABLET PO SCH ×3 (10:10→22:50)
[2018-12-24] MEDS: amLODIPine 2.5 MG TABLET PO SCH (12:11)
[2018-12-24] MEDS: ASPIRIN EC 81 MG TABLET PO SCH (12:11)
[2018-12-24] MEDS: CLOPIDOGREL 75 MG TABLET PO SCH (12:11)
[2018-12-24] MEDS: CARVEDILOL 25 MG TABLET PO SCH ×2 (12:11→22:49)
[2018-12-24] MEDS: DOCUSATE SODIUM 100 MG CAPSULE PO SCH (12:13)
[2018-12-24] MEDS: levETIRAcetam 500 MG TABLET PO SCH ×2 (12:19→22:48)
[2018-12-24] MEDS: METOCLOPRAMIDE 10 MG TABLET PO SCH ×3 (12:19→22:52)
[2018-12-24] MEDS: SIMETHICONE CHEW 125 MG TABLET PO SCH ×3 (16:38→22:52)
[2018-12-24] MEDS ORDERED: buPROPion XL 150 MG TABLET PO SCH (21:00)
[2018-12-24] MEDS ORDERED: FOLIC ACID 1 MG TABLET PO SCH (21:00)
[2018-12-24] MEDS ORDERED: AMITRIPTYLINE 25 MG TABLET PO SCH (21:00)
[2018-12-25 06:00] LABS: Basophils # 0.1 10*3/uL (0.0-0.2); Basophils % 0.7 % (0.0-0.8); Eosinophils # 0.2 10*3/uL (0.0-0.87); Eosinophils % 2.1 % (0.00-10.9); Hematocrit 31.8 VOL% (35.7-47.0); Hemoglobin 10.2 GM/DL (12.0-16.0); Immature Granulocytes % 0.3 %; Immature Granulocytes Absolute 0.02 #; Lymphocytes # 3.7 10*3/uL (1.4-4.0); Lymphocytes % 52.5 % (21.3-54.2); Mean Corpuscular HGB Conc 32.1 GM/DL (32-36); Mean Corpuscular Volume 97.2 FL (87-102); Mean Platelet Volume 9.6 FL (9.6-12.0); Monocytes % 10.7 % (1.7-12.7); Neutrophils % 33.7 % (38.7-73.9); Platelet Count 235 T/CUMM (130-400); Red Blood Count 3.27 MC/CUMM (3.8-5.5); Red Cell Distribution Width 13.4 % (9.3-17.3); White Blood Count 7.1 T/CUMM (4-12)
[2018-12-25 06:34] LABS: Alanine Aminotransferase 16 U/L (13-56); Albumin 2.8 G/DL (3.4-5.0); Alkaline Phosphatase 80 U/L (45-117); Aspartate Amino Transferase 18 U/L (0-37); Bilirubin,Total < 0.39 MG/DL (0.2-1.0); Blood Urea Nitrogen 40 MG/DL (7-18); Calcium 8.6 MG/DL (8.5-10.1); Glucose 86 MG/DL (74-106); Osmolality,Calculated 287.4 MOS/KG (273-304); Total Protein 6.7 G/DL (6.4-8.3)
[2018-12-25 06:54] LABS: Band Neutrophils 2 % (0-10); Eosinophils 4 % (0-10); Lymphocytes 50 % (20-55); Segmented Neutrophils 36 % (50-85)
[2018-12-25 06:55] LABS: Platelet Estimate Adequate; Total Cells Counted 100
[2018-12-25] MEDS: METOCLOPRAMIDE 10 MG TABLET PO SCH ×2 (06:57→13:34)
[2018-12-25] MEDS: DEXTROSE 5% NACL 0.45% 1,000 ML IV SCH (06:58)
[2018-12-25] MEDS ORDERED: POTASSIUM CHLORIDE 20 MEQ TABLET PO ONE (07:41)
[2018-12-25] MEDS: DOCUSATE SODIUM 100 MG CAPSULE PO SCH (08:38)
[2018-12-25] MEDS: PANTOPRAZOLE 40 MG TABLET PO SCH (08:39)
[2018-12-25] MEDS: levETIRAcetam 500 MG TABLET PO SCH (08:39)
[2018-12-25] MEDS: CARVEDILOL 25 MG TABLET PO SCH (08:39)
[2018-12-25] MEDS: amLODIPine 2.5 MG TABLET PO SCH (08:39)
[2018-12-25] MEDS: CLOPIDOGREL 75 MG TABLET PO SCH (08:39)
[2018-12-25] MEDS: SIMETHICONE CHEW 125 MG TABLET PO SCH ×2 (08:39→13:34)
[2018-12-25] MEDS: ASPIRIN EC 81 MG TABLET PO SCH (08:39)
[2018-12-25] MEDS ORDERED: FLUCONAZOLE 200 MG TABLET PO ONE (08:58)
[2018-12-25] MEDS ORDERED: MAGNESIUM HYDROXIDE SUSP 30 ML UDCUP PO ONE (09:05)
[2018-12-25 12:01] VITALS: BP 117/74
== END 2018-12-25 13:33 | disposition home health service (06) | DRG 469 ==
LOC: EDUNIT# → EDBD → N.ED 09:27 → N.EDINP 09:27 → N.5E 12-24 01:20
PROVIDERS: ADMIT Family Medicine; ATTEND Family Medicine

== ENCOUNTER 2019-06-04 10:10 | Inpatient (IN) ==
[2019-06-04 11:42] LABS: Apearance,Urine Slightly Hazy (Clear); Bacteria,Urine Few /HPF (Few); Bilirubin,Urine Negative (Negative); Blood, Urine Moderate mg/dL (Negative); Glucose,Urine (UA) 50 mg/dL (Negative); Hyaline Casts,Urine 1 /LPF (0-3); Ketones,Urine Negative (Negative); Mucus,Urine Occasional /LPF (Occasional); Nitrite,Urine Negative (Negative); Protein,Urine >=500 MG/DL; RBC,Urine 8 /HPF (0-4); Squamous Epithelial Cell,Urine Few /HPF (0-10); Urine Color Yellow (Yellow); Urine Specific Gravity 1.012 (1.001-1.035); Urine Urobilinogen < 2.0 EU/DL (0.2-1.0); WBC,Urine 12 /HPF (0-6)
[2019-06-04] MEDS ORDERED: ONDANSETRON 4 MG/2 ML VIAL IV ONE (11:45)
[2019-06-04] MEDS ORDERED: HYDROmorphone 2 MG/1 ML VIAL IV STA (11:45)
[2019-06-04] MEDS ORDERED: ONDANSETRON 4 MG/2 ML VIAL IV STA (12:02)
[2019-06-04] MEDS ORDERED: FAMOTIDINE 20 MG/2 ML VIAL IV STA (12:05)
[2019-06-04 12:37] LABS: Basophils # 0.1 10*3/uL (0.0-0.2); Basophils % 0.4 % (0.0-0.8); Eosinophils # 0.1 10*3/uL (0.0-0.87); Eosinophils % 0.4 % (0.00-10.9); Hematocrit 32.6 VOL% (35.7-47.0); Hemoglobin 10.5 GM/DL (12.0-16.0); Immature Granulocytes % 0.5 %; Immature Granulocytes Absolute 0.06 #; Lymphocytes # 3.2 10*3/uL (1.4-4.0); Lymphocytes % 24.8 % (21.3-54.2); Mean Corpuscular HGB Conc 32.2 GM/DL (32-36); Mean Corpuscular Volume 98.2 FL (87-102); Monocytes % 8.7 % (1.7-12.7); Neutrophils % 65.2 % (38.7-73.9); Platelet Count 275 T/CUMM (130-400); Red Blood Count 3.32 MC/CUMM (3.8-5.5); Red Cell Distribution Width 12.2 % (9.3-17.3); White Blood Count 12.8 T/CUMM (4-12)
[2019-06-04 13:01] LABS: Alanine Aminotransferase 17 U/L (13-56); Albumin 3.4 G/DL (3.4-5.0); Alkaline Phosphatase 91 U/L (45-117); Aspartate Amino Transferase 11 U/L (0-37); Blood Urea Nitrogen 52 MG/DL (7-18); Calcium 9.5 MG/DL (8.5-10.1); Estimated Glom Filtration Rate 41 ML/MIN; Glucose 207 MG/DL (74-106)
[2019-06-04] MEDS ORDERED: SODIUM CHLORIDE 0.9% 1,000 ML IV STA (13:19)
[2019-06-04] MEDS ORDERED: cefTRIAXone 1,000 MG in SODIUM CHLORIDE 0.9% 100 ML IV STA (14:02)
[2019-06-04] MEDS ORDERED: ACETAMINOPHEN 325 MG TABLET PO PRN (14:40)
[2019-06-04] MEDS ORDERED: METOCLOPRAMIDE 10 MG TABLET PO PRN (14:46)
[2019-06-04 14:53] LABS: Hematocrit 32.5 VOL% (35.7-47.0); Hemoglobin 10.5 GM/DL (12.0-16.0)
[2019-06-04] MEDS ORDERED: LABETALOL 20 MG/4 ML SYRINGE IV STA (17:03)
[2019-06-04] MEDS: amLODIPine 10 MG TABLET PO SCH (17:18)
[2019-06-04] MEDS ORDERED: POTASSIUM CHLORIDE 20 MEQ TABLET PO PRN (18:08)
[2019-06-04] MEDS ORDERED: GLUCAGON 1 MG VIAL IM PRN (18:23)
[2019-06-04] MEDS ORDERED: DEXTROSE 10% 250 ML BAG IV PRN (18:23)
[2019-06-04] MEDS ORDERED: INFLUENZA VIRUS VACCINE 0.5 ML SYRINGE IM ONE (19:10)
[2019-06-04] MEDS: levETIRAcetam 500 MG TABLET PO SCH (21:11)
[2019-06-04] MEDS: FOLIC ACID 1 MG TABLET PO SCH (21:11)
[2019-06-04] MEDS: PANTOPRAZOLE 40 MG VIAL IV SCH (21:11)
[2019-06-04] MEDS: buPROPion XL 150 MG TABLET PO SCH (21:12)
[2019-06-04] MEDS: carvediloL 25 MG TABLET PO SCH (21:12)
[2019-06-04] MEDS: AMITRIPTYLINE 25 MG TABLET PO SCH (21:12)
[2019-06-04] MEDS: INSULIN LISPRO 100 UNIT/ML SUBCUT SCH (21:12)
[2019-06-04 21:30] LABS: Hematocrit 32.4 VOL% (35.7-47.0); Hemoglobin 10.4 GM/DL (12.0-16.0)
[2019-06-05 03:31] LABS: Basophils # 0.1 10*3/uL (0.0-0.2); Basophils % 0.6 % (0.0-0.8); Eosinophils # 0.1 10*3/uL (0.0-0.87); Eosinophils % 0.6 % (0.00-10.9); Hematocrit 28.6 VOL% (35.7-47.0); Hemoglobin 9.2 GM/DL (12.0-16.0); Immature Granulocytes % 0.2 %; Immature Granulocytes Absolute 0.02 #; Lymphocytes # 3.5 10*3/uL (1.4-4.0); Lymphocytes % 33.1 % (21.3-54.2); Mean Corpuscular HGB Conc 32.2 GM/DL (32-36); Mean Corpuscular Volume 97.9 FL (87-102); Mean Platelet Volume 10.4 FL (9.6-12.0); Monocytes % 9.8 % (1.7-12.7); Neutrophils % 55.7 % (38.7-73.9); Platelet Count 239 T/CUMM (130-400); Red Blood Count 2.92 MC/CUMM (3.8-5.5); Red Cell Distribution Width 12.2 % (9.3-17.3); White Blood Count 10.4 T/CUMM (4-12)
[2019-06-05 03:52] LABS: Calcium 8.6 MG/DL (8.5-10.1); Osmolality,Calculated 291.7 MOS/KG (273-304)
[2019-06-05] MEDS: INSULIN LISPRO 100 UNIT/ML SUBCUT SCH ×4 (08:14→21:24)
[2019-06-05 08:24] LABS: Hematocrit 30.4 VOL% (35.7-47.0)
[2019-06-05] MEDS ORDERED: propofoL 200 MG/20 ML VIAL IV ONE (09:00)
[2019-06-05] MEDS: cefTRIAXone 1,000 MG in SYRINGE 1 EACH IV SCH (09:00)
[2019-06-05] MEDS ORDERED: ETOMIDATE 20 MG/10 ML VIAL IV ONE (09:00)
[2019-06-05] MEDS: PANTOPRAZOLE 40 MG VIAL IV SCH ×2 (09:00→21:24)
[2019-06-05] MEDS ORDERED: LIDOCAINE 2% 5 ML VIAL ONE (09:00)
[2019-06-05] MEDS ORDERED: LACTATED RINGERS 1,000 ML IV SCH (10:00)
[2019-06-05] MEDS ORDERED: MIDAZOLAM 2 MG/2 ML VIAL ONE (10:20)
[2019-06-05] MEDS: buPROPion XL 150 MG TABLET PO SCH ×2 (12:56→21:24)
[2019-06-05] MEDS: ASPIRIN EC 81 MG TABLET PO SCH (12:56)
[2019-06-05] MEDS: levETIRAcetam 500 MG TABLET PO SCH ×2 (12:56→21:25)
[2019-06-05] MEDS: carvediloL 25 MG TABLET PO SCH ×2 (12:57→16:36)
[2019-06-05] MEDS: ONDANSETRON 4 MG/2 ML VIAL IV PRN (15:33)
[2019-06-05] MEDS: PROMETHAZINE 25 MG TABLET PO PRN (16:36)
[2019-06-05] MEDS: amLODIPine 10 MG TABLET PO SCH (16:36)
[2019-06-05] MEDS: AMITRIPTYLINE 25 MG TABLET PO SCH (21:24)
[2019-06-05] MEDS: FOLIC ACID 1 MG TABLET PO SCH (21:24)
[2019-06-06 05:42] LABS: Basophils # 0.1 10*3/uL (0.0-0.2); Basophils % 0.5 % (0.0-0.8); Eosinophils # 0.1 10*3/uL (0.0-0.87); Eosinophils % 1.2 % (0.00-10.9); Hematocrit 27.7 VOL% (35.7-47.0); Immature Granulocytes % 0.2 %; Immature Granulocytes Absolute 0.02 #; Lymphocytes # 4.1 10*3/uL (1.4-4.0); Mean Corpuscular HGB Conc 32.5 GM/DL (32-36); Mean Corpuscular Volume 99.3 FL (87-102); Mean Platelet Volume 10.1 FL (9.6-12.0); Monocytes % 9.3 % (1.7-12.7); Neutrophils % 47.8 % (38.7-73.9); Platelet Count 232 T/CUMM (130-400); Red Blood Count 2.79 MC/CUMM (3.8-5.5)
[2019-06-06 05:56] LABS: Calcium 8.9 MG/DL (8.5-10.1); Osmolality,Calculated 287.3 MOS/KG (273-304)
[2019-06-06] MEDS: buPROPion XL 150 MG TABLET PO SCH ×2 (08:00→20:39)
[2019-06-06] MEDS: ASPIRIN EC 81 MG TABLET PO SCH (08:00)
[2019-06-06] MEDS: PROMETHAZINE 25 MG TABLET PO PRN ×2 (08:00→20:51)
[2019-06-06] MEDS: cefTRIAXone 1,000 MG in SYRINGE 1 EACH IV SCH (08:00)
[2019-06-06] MEDS: levETIRAcetam 500 MG TABLET PO SCH ×2 (08:00→20:39)
[2019-06-06] MEDS: carvediloL 25 MG TABLET PO SCH ×2 (08:00→17:20)
[2019-06-06] MEDS: PANTOPRAZOLE 40 MG VIAL IV SCH ×2 (08:01→20:39)
[2019-06-06] MEDS: ONDANSETRON 4 MG/2 ML VIAL IV PRN (08:08)
[2019-06-06] MEDS: INSULIN LISPRO 100 UNIT/ML SUBCUT SCH ×4 (08:18→20:39)
[2019-06-06] MEDS ORDERED: POTASSIUM CHLORIDE 20 MEQ TABLET PO ONE (10:00)
[2019-06-06] MEDS ORDERED: POTASSIUM CHLORIDE INJ 50 MEQ in SODIUM CHLORIDE 0.9% 500 ML IV ONE (15:00)
[2019-06-06] MEDS ORDERED: LORazepam 2 MG/1 ML VIAL IV ONE (15:32)
[2019-06-06] MEDS: amLODIPine 10 MG TABLET PO SCH (17:20)
[2019-06-06] MEDS: AMITRIPTYLINE 25 MG TABLET PO SCH (20:38)
[2019-06-06] MEDS: FOLIC ACID 1 MG TABLET PO SCH (20:39)
[2019-06-07 05:10] LABS: Basophils # 0.1 10*3/uL (0.0-0.2); Basophils % 0.7 % (0.0-0.8); Eosinophils # 0.2 10*3/uL (0.0-0.87); Eosinophils % 2.8 % (0.00-10.9); Hematocrit 27.6 VOL% (35.7-47.0); Hemoglobin 8.8 GM/DL (12.0-16.0); Immature Granulocytes % 0.2 %; Immature Granulocytes Absolute 0.02 #; Lymphocytes # 3.5 10*3/uL (1.4-4.0); Lymphocytes % 43.1 % (21.3-54.2); Mean Corpuscular HGB Conc 31.9 GM/DL (32-36); Mean Corpuscular Volume 98.9 FL (87-102); Mean Platelet Volume 10.1 FL (9.6-12.0); Monocytes % 11.8 % (1.7-12.7); Neutrophils % 41.4 % (38.7-73.9); Platelet Count 239 T/CUMM (130-400); Red Blood Count 2.79 MC/CUMM (3.8-5.5); White Blood Count 8.1 T/CUMM (4-12)
[2019-06-07 05:45] LABS: Calcium 8.9 MG/DL (8.5-10.1); Osmolality,Calculated 279.5 MOS/KG (273-304)
[2019-06-07] MEDS: INSULIN LISPRO 100 UNIT/ML SUBCUT SCH ×3 (07:48→16:14)
[2019-06-07] MEDS: buPROPion XL 150 MG TABLET PO SCH (08:16)
[2019-06-07] MEDS: carvediloL 25 MG TABLET PO SCH ×2 (08:16→17:37)
[2019-06-07] MEDS: cefTRIAXone 1,000 MG in SYRINGE 1 EACH IV SCH (08:16)
[2019-06-07] MEDS: ASPIRIN EC 81 MG TABLET PO SCH (08:16)
[2019-06-07] MEDS: levETIRAcetam 500 MG TABLET PO SCH (08:16)
[2019-06-07] MEDS: PANTOPRAZOLE 40 MG VIAL IV SCH (08:21)
[2019-06-07 16:35] VITALS: BP 132/76
[2019-06-07] MEDS: amLODIPine 10 MG TABLET PO SCH (17:37)
== END 2019-06-07 18:28 | disposition home health service (06) | DRG 45 ==
LOC: EDUNIT# → EDBD → N.ED 10:10 → N.EDINP 14:39 → N.2E 18:19
PROVIDERS: ADMIT Internal Medicine; ATTEND Internal Medicine

== ENCOUNTER 2019-10-28 07:03 | Inpatient (IN) ==
[2019-10-28] MEDS ORDERED: METOCLOPRAMIDE 10 MG/2 ML VIAL IV STA (07:27)
[2019-10-28] MEDS ORDERED: SODIUM CHLORIDE 0.9% 1,000 ML IV STA (07:27)
[2019-10-28] MEDS ORDERED: ONDANSETRON 4 MG/2 ML VIAL IV STA (07:27)
[2019-10-28] MEDS ORDERED: DICYCLOMINE 20 MG/2 ML AMP IM ONE (07:27)
[2019-10-28] MEDS ORDERED: PANTOPRAZOLE 40 MG VIAL IV STA (07:27)
[2019-10-28] MEDS ORDERED: hydrALAZINE 20 MG/1 ML VIAL IV STA (07:31)
[2019-10-28 08:28] LABS: Basophils % 0.3 % (0.0-0.8); Hematocrit 36.6 VOL% (35.7-47.0); Hemoglobin 11.6 GM/DL (12.0-16.0); Immature Granulocytes % 0.4 %; Immature Granulocytes Absolute 0.05 #; Lymphocytes # 2.2 10*3/uL (1.4-4.0); Lymphocytes % 18.5 % (21.3-54.2); Mean Corpuscular HGB Conc 31.7 GM/DL (32-36); Mean Corpuscular Volume 88.4 FL (87-102); Monocytes % 13.2 % (1.7-12.7); Neutrophils % 67.6 % (38.7-73.9); Platelet Count 368 T/CUMM (130-400); Red Blood Count 4.14 MC/CUMM (3.8-5.5); Red Cell Distribution Width 16.6 % (9.3-17.3); White Blood Count 11.7 T/CUMM (4-12)
[2019-10-28 08:49] LABS: Alanine Aminotransferase 19 U/L (13-56); Albumin 3.3 G/DL (3.4-5.0); Alkaline Phosphatase 158 U/L (45-117); Aspartate Amino Transferase 17 U/L (0-37); Blood Urea Nitrogen 24 MG/DL (7-18); Calcium 9.3 MG/DL (8.5-10.1); Estimated Glom Filtration Rate 43 ML/MIN; Ferritin 49.9 ng/ml (8-252); Glucose 209 MG/DL (74-106); Osmolality,Calculated 275.4 MOS/KG (273-304); Total Protein 8.9 G/DL (6.4-8.3)
[2019-10-28 08:50] LABS: Amylase 114 U/L (25-115)
[2019-10-28 08:57] LABS: Apearance,Urine Slightly Hazy (Clear); Bacteria,Urine Occasional /HPF (Few); Bilirubin,Urine Negative (Negative); Blood, Urine Small mg/dL (Negative); Glucose,Urine (UA) 50 mg/dL (Negative); Ketones,Urine 5 mg/dL (Negative); Mucus,Urine Occasional /LPF (Occasional); Nitrite,Urine Positive (Negative); Protein,Urine >=500 MG/DL; RBC,Urine 2 /HPF (0-4); Squamous Epithelial Cell,Urine Occasional /HPF (0-10); Urine Color Yellow (Yellow); Urine Specific Gravity 1.015 (1.001-1.035); Urine Urobilinogen < 2.0 EU/DL (0.2-1.0); WBC,Urine 27 /HPF (0-6)
[2019-10-28] MEDS ORDERED: AMPICILLIN/SULBACTAM 3,000 MG in SODIUM CHLORIDE 0.9% 100 ML IV STA (09:23)
[2019-10-28] MEDS ORDERED: POTASSIUM BICARB EFFERVESCENT 25 MEQ TABLET PO ONE (09:23)
[2019-10-28] MEDS ORDERED: METOPROLOL TARTRATE 5 MG/5 ML VIAL IV STA (09:25)
[2019-10-28] MEDS ORDERED: ACETAMINOPHEN 325 MG TABLET PO PRN (10:04)
[2019-10-28] MEDS ORDERED: ONDANSETRON 4 MG/2 ML VIAL IV PRN (10:04)
[2019-10-28] MEDS ORDERED: DEXTROSE 50% 25 GM/50 ML VIAL IV PRN (10:04)
[2019-10-28] MEDS ORDERED: GLUCAGON 1 MG VIAL IM PRN (10:04)
[2019-10-28] MEDS ORDERED: DICYCLOMINE 20 MG TABLET PO PRN (10:09)
[2019-10-28] MEDS ORDERED: POTASSIUM CHLORIDE 20 MEQ TABLET PO PRN (10:13)
[2019-10-28] MEDS: PANTOPRAZOLE 40 MG TABLET PO SCH ×2 (13:14→22:29)
[2019-10-28] MEDS: CLOPIDOGREL 75 MG TABLET PO SCH (13:20)
[2019-10-28] MEDS: amLODIPine 10 MG TABLET PO SCH (13:20)
[2019-10-28] MEDS: carvediloL 25 MG TABLET PO SCH ×2 (13:21→22:29)
[2019-10-28] MEDS: ASPIRIN EC 81 MG TABLET PO SCH (13:21)
[2019-10-28] MEDS: levETIRAcetam 500 MG TABLET PO SCH ×2 (13:21→22:29)
[2019-10-28] MEDS: ATORVASTATIN 40 MG TABLET PO SCH (13:21)
[2019-10-28] MEDS: SODIUM CHLORIDE 0.9% 1,000 ML IV SCH ×2 (13:22→22:42)
[2019-10-28] MEDS: INSULIN LISPRO 100 UNIT/ML SUBCUT SCH ×3 (13:23→22:29)
[2019-10-28 14:40] LABS: Troponin I 0.176 NG/ML (0.00-0.045)
[2019-10-28] MEDS: AMPICILLIN/SULBACTAM 3,000 MG in SODIUM CHLORIDE 0.9% 100 ML IV SCH ×2 (16:40→23:03)
[2019-10-28] MEDS: SUCRALFATE 1 GM TABLET PO SCH ×2 (16:49→22:27)
[2019-10-28] MEDS ORDERED: buPROPion XL 150 MG TABLET PO SCH (21:00)
[2019-10-28] MEDS ORDERED: FOLIC ACID 1 MG TABLET PO SCH (21:00)
[2019-10-29] MEDS: AMPICILLIN/SULBACTAM 3,000 MG in SODIUM CHLORIDE 0.9% 100 ML IV SCH ×2 (04:45→11:07)
[2019-10-29 07:24] LABS: Basophils # 0.1 10*3/uL (0.0-0.2); Basophils % 0.6 % (0.0-0.8); Eosinophils # 0.1 10*3/uL (0.0-0.87); Eosinophils % 0.6 % (0.00-10.9); Hematocrit 28.8 VOL% (35.7-47.0); Immature Granulocytes % 0.2 %; Immature Granulocytes Absolute 0.02 #; Lymphocytes # 3.4 10*3/uL (1.4-4.0); Lymphocytes % 38.3 % (21.3-54.2); Mean Corpuscular HGB Conc 31.3 GM/DL (32-36); Mean Corpuscular Volume 90.6 FL (87-102); Mean Platelet Volume 9.8 FL (9.6-12.0); Monocytes % 9.1 % (1.7-12.7); Neutrophils % 51.2 % (38.7-73.9); Platelet Count 298 T/CUMM (130-400); Red Cell Distribution Width 17.2 % (9.3-17.3)
[2019-10-29 07:27] LABS: Red Blood Count 3.18 MC/CUMM (3.8-5.5)
[2019-10-29 07:57] LABS: Troponin I 0.199 NG/ML (0.00-0.045)
[2019-10-29 08:04] LABS: Calcium 7.9 MG/DL (8.5-10.1); Osmolality,Calculated 278.8 MOS/KG (273-304); Risk Ratio 3.29; Thyroid Stimulating Hormone 0.786 uIU/ml (0.358-3.74); VLDL CHOLESTEROL 22.2 MG/DL
[2019-10-29] MEDS: amLODIPine 10 MG TABLET PO SCH (09:06)
[2019-10-29] MEDS: PANTOPRAZOLE 40 MG TABLET PO SCH (09:06)
[2019-10-29] MEDS: INSULIN LISPRO 100 UNIT/ML SUBCUT SCH ×2 (09:06→11:45)
[2019-10-29] MEDS: ATORVASTATIN 40 MG TABLET PO SCH (09:06)
[2019-10-29] MEDS: levETIRAcetam 500 MG TABLET PO SCH (09:06)
[2019-10-29] MEDS: POTASSIUM CHLORIDE 20 MEQ TABLET PO SCH ×2 (09:06→12:08)
[2019-10-29] MEDS: CLOPIDOGREL 75 MG TABLET PO SCH (09:06)
[2019-10-29] MEDS: carvediloL 25 MG TABLET PO SCH (09:06)
[2019-10-29] MEDS: SUCRALFATE 1 GM TABLET PO SCH ×2 (09:06→12:08)
[2019-10-29] MEDS: ASPIRIN EC 81 MG TABLET PO SCH (09:06)
[2019-10-29] MEDS: SODIUM CHLORIDE 0.9% 1,000 ML IV SCH (11:07)
[2019-10-29 11:41] VITALS: BP 135/74
== END 2019-10-29 14:21 | disposition home or self-care (01) | DRG 466 ==
LOC: EDBD → EDUNIT# → N.ED 07:03 → N.EDINP 09:56 → N.3E 17:01
PROVIDERS: ADMIT Family Medicine; ATTEND Family Medicine

== ENCOUNTER 2019-11-26 13:53 | Observation (INO) ==
[2019-11-26] MEDS ORDERED: ONDANSETRON 4 MG/2 ML VIAL IV STA (14:56)
[2019-11-26 15:33] LABS: Calcium 9.5 MG/DL (8.5-10.1); Osmolality,Calculated 271.5 MOS/KG (273-304)
[2019-11-26 15:50] LABS: Albumin 3.2 G/DL (3.4-5.0); Bilirubin,Total 0.4 MG/DL (0.2-1.0); Calcium 9.3 MG/DL (8.5-10.1); Osmolality,Calculated 270.5 MOS/KG (273-304); Total Protein 8.7 G/DL (6.4-8.3)
[2019-11-26 15:54] LABS: Apearance,Urine Slightly Hazy (Clear); Bacteria,Urine Occasional /HPF (Few); Bilirubin,Urine Negative (Negative); Blood, Urine Negative (Negative); Glucose,Urine (UA) Negative (Negative); Hyaline Casts,Urine 5 /LPF (0-3); Ketones,Urine 5 mg/dL (Negative); Mucus,Urine Occasional /LPF (Occasional); Nitrite,Urine Negative (Negative); Protein,Urine 100 MG/DL; RBC,Urine 8 /HPF (0-4); Squamous Epithelial Cell,Urine Occasional /HPF (0-10); Urine Color Yellow (Yellow); Urine Specific Gravity 1.014 (1.001-1.035); Urine Urobilinogen < 2.0 EU/DL (0.2-1.0); WBC,Urine 5 /HPF (0-6)
[2019-11-26 17:18] LABS: Basophils # 0.1 10*3/uL (0.0-0.2); Basophils % 0.8 % (0.0-0.8); Eosinophils # 0.2 10*3/uL (0.0-0.87); Eosinophils % 2.2 % (0.00-10.9); Hematocrit 28.4 VOL% (35.7-47.0); Hemoglobin 9.3 GM/DL (12.0-16.0); Immature Granulocytes % 0.4 %; Immature Granulocytes Absolute 0.04 #; Lymphocytes # 3.1 10*3/uL (1.4-4.0); Lymphocytes % 30.2 % (21.3-54.2); Mean Corpuscular HGB Conc 32.7 GM/DL (32-36); Mean Corpuscular Volume 88.2 FL (87-102); Mean Platelet Volume 9.3 FL (9.6-12.0); Monocytes % 11.1 % (1.7-12.7); Neutrophils % 55.3 % (38.7-73.9); Platelet Count 490 T/CUMM (130-400); Red Blood Count 3.22 MC/CUMM (3.8-5.5); Red Cell Distribution Width 16.2 % (9.3-17.3); White Blood Count 10.3 T/CUMM (4-12)
[2019-11-26] MEDS ORDERED: ONDANSETRON 4 MG/2 ML VIAL IV PRN (17:24)
[2019-11-26] MEDS ORDERED: GLUCAGON 1 MG VIAL IM PRN (17:24)
[2019-11-26] MEDS ORDERED: MORPHINE 4 MG/1 ML VIAL ONE (17:41)
[2019-11-26] MEDS: MORPHINE 4 MG/1 ML VIAL IV PRN ×2 (17:45→21:36)
[2019-11-26] MEDS ORDERED: hydrALAZINE 20 MG/1 ML VIAL IV PRN (18:14)
[2019-11-26] MEDS: SODIUM CHLORIDE 0.9% 1,000 ML IV SCH (20:15)
[2019-11-26] MEDS: INSULIN LISPRO 100 UNIT/ML SUBCUT SCH (21:44)
[2019-11-27] MEDS: DEXTROSE 50% 25 GM/50 ML VIAL IV PRN ×3 (00:45→10:28)
[2019-11-27] MEDS: INSULIN LISPRO 100 UNIT/ML SUBCUT SCH ×4 (00:47→17:47)
[2019-11-27] MEDS: SODIUM CHLORIDE 0.9% 1,000 ML IV SCH (04:15)
[2019-11-27 05:19] LABS: Calcium 7.1 MG/DL (8.5-10.1); Osmolality,Calculated 286.1 MOS/KG (273-304)
[2019-11-27] MEDS: POTASSIUM CHLORIDE RIDER 10 MEQ in PREMIX 1 EACH IV PRN ×2 (06:05→08:58)
[2019-11-27 06:38] LABS: Basophils # 0.1 10*3/uL (0.0-0.2); Basophils % 0.8 % (0.0-0.8); Eosinophils # 0.6 10*3/uL (0.0-0.87); Eosinophils % 6.9 % (0.00-10.9); Hematocrit 30.1 VOL% (35.7-47.0); Hemoglobin 9.6 GM/DL (12.0-16.0); Immature Granulocytes % 0.4 %; Immature Granulocytes Absolute 0.03 #; Lymphocytes # 3.6 10*3/uL (1.4-4.0); Mean Corpuscular HGB Conc 31.9 GM/DL (32-36); Mean Corpuscular Volume 90.9 FL (87-102); Mean Platelet Volume 9.3 FL (9.6-12.0); Monocytes % 13.2 % (1.7-12.7); Neutrophils % 35.7 % (38.7-73.9); Platelet Count 379 T/CUMM (130-400); Red Blood Count 3.31 MC/CUMM (3.8-5.5); Red Cell Distribution Width 16.5 % (9.3-17.3); White Blood Count 8.3 T/CUMM (4-12)
[2019-11-27 07:04] LABS: Eosinophils 3 % (0-10); Hypochromasia 1+; Lymphocytes 48 % (20-55); Platelet Estimate Adequate; Segmented Neutrophils 37 % (50-85); Total Cells Counted 100
[2019-11-27] MEDS ORDERED: PROMETHAZINE INJ 25 MG in SODIUM CHLORIDE 0.9% 50 ML IV PRN (07:59)
[2019-11-27] MEDS ORDERED: POTASSIUM CHLORIDE 20 MEQ TABLET PO SCH (08:00)
[2019-11-27] MEDS: PANTOPRAZOLE 40 MG VIAL IV SCH (08:59)
[2019-11-27] MEDS ORDERED: POTASSIUM CHLORIDE INJ 40 MEQ in LACTATED RINGERS 1,000 ML IV SCH (09:00)
[2019-11-27] MEDS: MORPHINE 4 MG/1 ML VIAL IV PRN ×3 (09:00→21:10)
[2019-11-27] MEDS: NICOTINE 14 MG/24 HR PATCH TRANSDERM SCH (09:01)
[2019-11-27] MEDS: ASPIRIN EC 81 MG TABLET PO SCH (09:59)
[2019-11-27] MEDS: carvediloL 25 MG TABLET PO SCH ×2 (09:59→21:08)
[2019-11-27] MEDS: levETIRAcetam 500 MG TABLET PO SCH ×2 (09:59→21:09)
[2019-11-27] MEDS: ATORVASTATIN 40 MG TABLET PO SCH (09:59)
[2019-11-27] MEDS: AZITHROMYCIN INJ 500 MG in SODIUM CHLORIDE 0.9% 250 ML IV SCH (10:00)
[2019-11-27] MEDS: amLODIPine 10 MG TABLET PO SCH (10:00)
[2019-11-27] MEDS: FAMOTIDINE 20 MG TABLET PO SCH ×2 (10:00→21:09)
[2019-11-27 10:33] LABS: Calcium 8.5 MG/DL (8.5-10.1)
[2019-11-27] MEDS: METOCLOPRAMIDE 10 MG/2 ML VIAL IV SCH ×2 (11:51→17:48)
[2019-11-27] MEDS ORDERED: LACTATED RINGERS 1,000 ML IV SCH (12:00)
[2019-11-27] MEDS: SUCRALFATE 1 GM TABLET PO SCH ×3 (12:33→21:09)
[2019-11-27] MEDS: DEXTROSE 5% LACTATED RINGERS 1,000 ML IV SCH (14:49)
[2019-11-27 16:28] LABS: Barbiturates Screen,Urine Negative (Negative); Benzodiazepines Screen,Urine Negative (Negative); Cannabinoid Screen,Urine Positive (Negative); Opiate Screen,Urine Positive (Negative); Phencyclidine Screen,Urine Negative (Negative)
[2019-11-27] MEDS: buPROPion XL 150 MG TABLET PO SCH (21:09)
[2019-11-27] MEDS: FOLIC ACID 1 MG TABLET PO SCH (21:09)
[2019-11-28] MEDS: DEXTROSE 5% LACTATED RINGERS 1,000 ML IV SCH ×3 (00:15→23:35)
[2019-11-28] MEDS: INSULIN LISPRO 100 UNIT/ML SUBCUT SCH ×5 (01:33→23:48)
[2019-11-28] MEDS: METOCLOPRAMIDE 10 MG/2 ML VIAL IV SCH ×5 (01:43→23:35)
[2019-11-28 05:34] LABS: Basophils % 0.7 % (0.0-0.8); Eosinophils # 0.4 10*3/uL (0.0-0.87); Hematocrit 25.6 VOL% (35.7-47.0); Hemoglobin 7.8 GM/DL (12.0-16.0); Immature Granulocytes % 0.2 %; Immature Granulocytes Absolute 0.01 #; Lymphocytes # 2.7 10*3/uL (1.4-4.0); Mean Corpuscular HGB Conc 30.5 GM/DL (32-36); Mean Corpuscular Volume 93.8 FL (87-102); Mean Platelet Volume 9.8 FL (9.6-12.0); Monocytes % 10.1 % (1.7-12.7); Platelet Count 382 T/CUMM (130-400); Red Blood Count 2.73 MC/CUMM (3.8-5.5); Red Cell Distribution Width 16.8 % (9.3-17.3); White Blood Count 5.5 T/CUMM (4-12)
[2019-11-28 07:18] LABS: Osmolality,Calculated 276.1 MOS/KG (273-304)
[2019-11-28 07:26] LABS: Band Neutrophils 1 % (0-10); Eosinophils 4 % (0-10); Lymphocytes 42 % (20-55); Segmented Neutrophils 49 % (50-85); Total Cells Counted 100
[2019-11-28 07:27] LABS: Hypochromasia 3+; Microcytosis Slight; Ovalocytes Slight; Platelet Estimate Normal; Polychromasia Slight
[2019-11-28] MEDS: SUCRALFATE 1 GM TABLET PO SCH ×4 (08:36→20:48)
[2019-11-28] MEDS ORDERED: SODIUM CHLORIDE 0.9% 1,000 ML IV PRN ×2 (08:51→13:20)
[2019-11-28] MEDS: NICOTINE 14 MG/24 HR PATCH TRANSDERM SCH (10:50)
[2019-11-28] MEDS: FAMOTIDINE 20 MG TABLET PO SCH ×2 (10:51→20:48)
[2019-11-28] MEDS: PANTOPRAZOLE 40 MG VIAL IV SCH (10:51)
[2019-11-28] MEDS: ASPIRIN EC 81 MG TABLET PO SCH (10:51)
[2019-11-28] MEDS: AZITHROMYCIN INJ 500 MG in SODIUM CHLORIDE 0.9% 250 ML IV SCH (11:57)
[2019-11-28] MEDS: levETIRAcetam 500 MG TABLET PO SCH ×2 (11:58→20:48)
[2019-11-28] MEDS: carvediloL 25 MG TABLET PO SCH ×2 (11:58→20:48)
[2019-11-28] MEDS: amLODIPine 10 MG TABLET PO SCH (11:58)
[2019-11-28] MEDS: ATORVASTATIN 40 MG TABLET PO SCH (11:58)
[2019-11-28] MEDS: MORPHINE 4 MG/1 ML VIAL IV PRN (18:51)
[2019-11-28] MEDS: buPROPion XL 150 MG TABLET PO SCH (20:48)
[2019-11-28] MEDS: FOLIC ACID 1 MG TABLET PO SCH (20:48)
[2019-11-29] MEDS: METOCLOPRAMIDE 10 MG/2 ML VIAL IV SCH ×2 (05:31→12:24)
[2019-11-29] MEDS: INSULIN LISPRO 100 UNIT/ML SUBCUT SCH ×2 (05:46→12:24)
[2019-11-29] MEDS: PANTOPRAZOLE 40 MG VIAL IV SCH (08:21)
[2019-11-29] MEDS: AZITHROMYCIN INJ 500 MG in SODIUM CHLORIDE 0.9% 250 ML IV SCH (08:23)
[2019-11-29] MEDS: NICOTINE 14 MG/24 HR PATCH TRANSDERM SCH (08:24)
[2019-11-29] MEDS: FAMOTIDINE 20 MG TABLET PO SCH (08:24)
[2019-11-29] MEDS: amLODIPine 10 MG TABLET PO SCH (08:25)
[2019-11-29] MEDS: SUCRALFATE 1 GM TABLET PO SCH ×2 (08:25→12:24)
[2019-11-29] MEDS: ASPIRIN EC 81 MG TABLET PO SCH (08:25)
[2019-11-29] MEDS: levETIRAcetam 500 MG TABLET PO SCH (08:25)
[2019-11-29] MEDS: carvediloL 25 MG TABLET PO SCH (08:25)
[2019-11-29] MEDS: ATORVASTATIN 40 MG TABLET PO SCH (08:25)
[2019-11-29 08:35] LABS: Basophils % 0.9 % (0.0-0.8); Eosinophils # 0.7 10*3/uL (0.0-0.87); Eosinophils % 8.4 % (0.00-10.9); Hematocrit 33.1 VOL% (35.7-47.0); Hemoglobin 10.7 GM/DL (12.0-16.0); Immature Granulocytes % 0.2 %; Lymphocytes # 3.3 10*3/uL (1.4-4.0); Lymphocytes % 39.3 % (21.3-54.2); Mean Corpuscular HGB Conc 32.3 GM/DL (32-36); Mean Platelet Volume 9.3 FL (9.6-12.0); Monocytes % 11.2 % (1.7-12.7); Platelet Count 370 T/CUMM (130-400); Red Blood Count 3.76 MC/CUMM (3.8-5.5); Red Cell Distribution Width 16.4 % (9.3-17.3); White Blood Count 8.5 T/CUMM (4-12)
[2019-11-29 08:36] LABS: Basophils # 0.1 10*3/uL (0.0-0.2); Immature Granulocytes Absolute 0.02 #
[2019-11-29 09:03] LABS: Calcium 8.3 MG/DL (8.5-10.1); Osmolality,Calculated 276.7 MOS/KG (273-304)
[2019-11-29 12:39] VITALS: BP 97/57
== END 2019-11-29 13:56 | disposition home or self-care (01) ==
LOC: EDBD → EDUNIT# → N.ED 13:53 → N.EDINP 17:24 → INTOOBSV 17:24 → SUATTDRO 18:23 → N.3E 19:55
PROVIDERS: ADMIT Internal Medicine; ATTEND Emergency Medicine

== ENCOUNTER 2019-12-05 17:43 | Observation (INO) ==
[2019-12-05] MEDS ORDERED: ONDANSETRON 4 MG/2 ML VIAL IV ONE (23:54)
[2019-12-05] MEDS ORDERED: KETOROLAC 30 MG/1 ML VIAL IV STA (23:54)
[2019-12-05] MEDS ORDERED: SODIUM CHLORIDE 0.9% 1,000 ML IV STA (23:54)
[2019-12-06 01:13] LABS: Albumin 3.5 G/DL (3.4-5.0); Bilirubin,Total 0.6 MG/DL (0.2-1.0); Calcium 9.6 MG/DL (8.5-10.1); Total Protein 8.9 G/DL (6.4-8.3)
[2019-12-06 01:26] LABS: Basophils # 0.1 10*3/uL (0.0-0.2); Basophils % 1.1 % (0.0-0.8); Eosinophils # 0.3 10*3/uL (0.0-0.87); Eosinophils % 3.4 % (0.00-10.9); Hematocrit 42.5 VOL% (35.7-47.0); Hemoglobin 13.8 GM/DL (12.0-16.0); Immature Granulocytes % 0.2 %; Immature Granulocytes Absolute 0.02 #; Lymphocytes # 2.9 10*3/uL (1.4-4.0); Lymphocytes % 28.7 % (21.3-54.2); Mean Corpuscular HGB Conc 32.5 GM/DL (32-36); Mean Corpuscular Volume 89.3 FL (87-102); Mean Platelet Volume 9.4 FL (9.6-12.0); Monocytes % 12.1 % (1.7-12.7); Neutrophils % 54.5 % (38.7-73.9); Platelet Count 408 T/CUMM (130-400); Red Blood Count 4.76 MC/CUMM (3.8-5.5); Red Cell Distribution Width 15.2 % (9.3-17.3)
[2019-12-06 01:49] LABS: Apearance,Urine CLOUDY (Clear); Bilirubin,Urine Negative (Negative); Blood, Urine Small mg/dL (Negative); Glucose,Urine (UA) Negative (Negative); Hyaline Casts,Urine 47 /LPF (0-3); Ketones,Urine 5 mg/dL (Negative); Mucus,Urine Occasional /LPF (Occasional); Nitrite,Urine Negative (Negative); Protein,Urine >=500 MG/DL; RBC,Urine 183 /HPF (0-4); Squamous Epithelial Cell,Urine Occasional /HPF (0-10); Urine Color Amber (Yellow); Urine Specific Gravity 1.016 (1.001-1.035); WBC,Urine 406 /HPF (0-6)
[2019-12-06] MEDS ORDERED: cefTRIAXone 1,000 MG in SODIUM CHLORIDE 0.9% 100 ML IV STA (01:56)
[2019-12-06] MEDS ORDERED: MORPHINE 4 MG/1 ML VIAL IV STA (03:11)
[2019-12-06] MEDS ORDERED: hydrALAZINE 20 MG/1 ML VIAL IV STA (03:13)
[2019-12-06] MEDS ORDERED: GLUCAGON 1 MG VIAL IM PRN (03:19)
[2019-12-06] MEDS ORDERED: MORPHINE 4 MG/1 ML VIAL IV PRN (03:19)
[2019-12-06] MEDS ORDERED: PROMETHAZINE 25 MG/1 ML VIAL IM PRN (03:19)
[2019-12-06] MEDS ORDERED: ONDANSETRON 4 MG/2 ML VIAL IV PRN (03:19)
[2019-12-06] MEDS ORDERED: DOCUSATE SODIUM 100 MG CAPSULE PO PRN (03:19)
[2019-12-06] MEDS ORDERED: hydrALAZINE 20 MG/1 ML VIAL IV PRN (03:19)
[2019-12-06] MEDS ORDERED: ACETAMINOPHEN 325 MG TABLET PO PRN (03:19)
[2019-12-06] MEDS ORDERED: DEXTROSE 50% 25 GM/50 ML VIAL IV PRN (03:19)
[2019-12-06] MEDS ORDERED: METOCLOPRAMIDE 5 MG TABLET PO PRN (03:24)
[2019-12-06] MEDS ORDERED: LEVOFLOXACIN INJ 500 MG in PREMIX 1 EACH IV ONE (04:00)
[2019-12-06] MEDS: SODIUM CHLORIDE 0.9% 1,000 ML IV SCH ×2 (05:00→12:57)
[2019-12-06] MEDS: INSULIN LISPRO 100 UNIT/ML SUBCUT SCH ×4 (08:10→21:51)
[2019-12-06] MEDS: METOCLOPRAMIDE 10 MG TABLET PO SCH ×4 (08:16→21:49)
[2019-12-06] MEDS: PANTOPRAZOLE 40 MG TABLET PO SCH ×3 (10:35→21:49)
[2019-12-06] MEDS: amLODIPine 10 MG TABLET PO SCH (10:35)
[2019-12-06] MEDS: GABAPENTIN 100 MG CAPSULE PO SCH ×3 (10:35→21:50)
[2019-12-06] MEDS: FAMOTIDINE 20 MG TABLET PO SCH ×2 (10:35→21:49)
[2019-12-06] MEDS: ASPIRIN EC 81 MG TABLET PO SCH (10:35)
[2019-12-06] MEDS: CLOPIDOGREL 75 MG TABLET PO SCH (10:35)
[2019-12-06] MEDS: ATORVASTATIN 40 MG TABLET PO SCH (10:35)
[2019-12-06] MEDS: levETIRAcetam 500 MG TABLET PO SCH ×2 (10:35→21:50)
[2019-12-06] MEDS: carvediloL 25 MG TABLET PO SCH ×2 (10:35→16:43)
[2019-12-06] MEDS: SUCRALFATE 1 GM TABLET PO SCH ×3 (12:00→21:50)
[2019-12-06] MEDS ORDERED: FOLIC ACID 1 MG TABLET PO SCH (21:00)
[2019-12-06] MEDS ORDERED: buPROPion XL 150 MG TABLET PO SCH (21:00)
[2019-12-07] MEDS: SODIUM CHLORIDE 0.9% 1,000 ML IV SCH ×2 (00:26→09:25)
[2019-12-07] MEDS ORDERED: cefTRIAXone 1,000 MG in SODIUM CHLORIDE 0.9% 100 ML IV SCH (02:00)
[2019-12-07] MEDS ORDERED: LEVOFLOXACIN INJ 250 MG in PREMIX 1 EACH IV SCH (06:00)
[2019-12-07 06:27] LABS: Basophils # 0.1 10*3/uL (0.0-0.2); Basophils % 1.5 % (0.0-0.8); Eosinophils # 0.4 10*3/uL (0.0-0.87); Eosinophils % 6.4 % (0.00-10.9); Hematocrit 37.1 VOL% (35.7-47.0); Hemoglobin 11.7 GM/DL (12.0-16.0); Immature Granulocytes % 0.2 %; Immature Granulocytes Absolute 0.01 #; Lymphocytes # 2.7 10*3/uL (1.4-4.0); Lymphocytes % 49.2 % (21.3-54.2); Mean Corpuscular HGB Conc 31.5 GM/DL (32-36); Mean Corpuscular Volume 90.7 FL (87-102); Mean Platelet Volume 10.1 FL (9.6-12.0); Monocytes % 15.8 % (1.7-12.7); Neutrophils % 26.9 % (38.7-73.9); Platelet Count 278 T/CUMM (130-400); Red Blood Count 4.09 MC/CUMM (3.8-5.5); Red Cell Distribution Width 15.6 % (9.3-17.3); White Blood Count 5.4 T/CUMM (4-12)
[2019-12-07 07:01] LABS: Osmolality,Calculated 272.8 MOS/KG (273-304)
[2019-12-07 07:34] LABS: Anisocytosis 1+; Band Neutrophils 1 % (0-10); Burr Cells 1+; Eosinophils 8 % (0-10); Lymphocytes 42 % (20-55); Platelet Estimate Normal; Poikilocytosis Slight; Segmented Neutrophils 29 % (50-85); Total Cells Counted 100
[2019-12-07 07:35] LABS: Macrocytosis Slight; Target Cells Few
[2019-12-07] MEDS: INSULIN LISPRO 100 UNIT/ML SUBCUT SCH ×3 (08:14→16:17)
[2019-12-07] MEDS: ATORVASTATIN 40 MG TABLET PO SCH (09:29)
[2019-12-07] MEDS: FAMOTIDINE 20 MG TABLET PO SCH (09:29)
[2019-12-07] MEDS: carvediloL 25 MG TABLET PO SCH ×2 (09:29→16:30)
[2019-12-07] MEDS: amLODIPine 10 MG TABLET PO SCH (09:29)
[2019-12-07] MEDS: GABAPENTIN 100 MG CAPSULE PO SCH ×2 (09:29→16:17)
[2019-12-07] MEDS: ASPIRIN EC 81 MG TABLET PO SCH (09:29)
[2019-12-07] MEDS: SUCRALFATE 1 GM TABLET PO SCH ×3 (09:29→16:17)
[2019-12-07] MEDS: PANTOPRAZOLE 40 MG TABLET PO SCH ×2 (09:29)
[2019-12-07] MEDS: CLOPIDOGREL 75 MG TABLET PO SCH (09:29)
[2019-12-07] MEDS: levETIRAcetam 500 MG TABLET PO SCH (09:29)
[2019-12-07] MEDS: METOCLOPRAMIDE 10 MG TABLET PO SCH ×3 (09:29→16:17)
[2019-12-07 21:46] VITALS: BP 108/52
== END 2019-12-07 21:58 | disposition home or self-care (01) ==
LOC: N.ED 17:43 → SUATTDRO 12-06 03:16 → INTOOBSV 12-06 03:16 → N.EDINP 12-06 03:16 → N.3E 12-06 13:45
PROVIDERS: ADMIT Internal Medicine; ATTEND Hospitalist